=== PATIENT | male | born 1945 | race Caucasian/White ===

== ENCOUNTER 2020-04-10 09:20 | Outpatient (NON) | payer MEDICARE, SELFPAY ==
[2020-04-11 00:27] LABS: SARS-CoV-2 RNA PCR Positive
== END 2020-04-10 09:21 ==
PROVIDERS: PCP Family Medicine; Visit Provider Family Medicine
DX: U07.1 COVID-19 (principal)
CPT/HCPCS: 87635; C9803; U0003

== ENCOUNTER 2020-04-22 08:06 | Observation (INO) | payer MEDICARE, SELFPAY ==
[2020-04-22] VITALS (12 sets, daily range): BP systolic 113–134; BP diastolic 67–82; PULSE 60–79; RESP 13–27; TEMP 36.3–37; O2SAT 88–99; BMI 19.1
--- NOTE | ~2020-04-22 | XR_ITS ---
EXAMINATION: XR chest 1V portable DATE: 04/22/2020 09:49 INDICATION: Shortness of breath. COVID-19 positive. TECHNIQUE: A single frontal view of the chest was obtained on 2 radiographs. COMPARISON: Chest 2 views 01/19/2019, chest CT 08/19/2005 FINDINGS: The lungs are hyperexpanded with lucencies and chronic interstitial opacities, consistent w ith emphysema. A calcified right middle lobe nodule is consistent with old granulomatous disease. No pleural effusion or pneumothorax. The heart size is normal. Median sternotomy wires are noted. IMPRESSION: 1. Emphysema. Reviewed, dictated and finalized at location A. [facility] [employer] IMPRESSION: 1. Emphysema.
--- NOTE | 2020-04-22 08:20 | ECG_ITS ---
Measurements Intervals [place] Rate: 65 P: 55 WV: 151 QRS: 124 QRSD: 97 T: -66 QT: 410 QTc: 429 Interpretive Statements SINUS RHYTHM RIGHT AXIS DEVIATION DELAYED PRECORDIAL R/S TRANSITION ST-T WAVE ABNORMALITY IN ANT/INF LEADS- CONSIDER ISCHEMIA BASELINE ARTIFACT- I, III, AVR, AVL ABNORMAL ECG Electronically Signed On 04-22-2020 10:03:22 SURGICAL SERVICES TECH by Nils Valle D.O.
[2020-04-22 08:32] LABS: Basophils Percent Auto 0.5 % (0.2-1.2); Eosinophils Absolute Auto 0.1 K/mm3 (0-0.3); Eosinophils Percent Auto 1.3 % (0-4.4); Hematocrit 55.4 % (42.0-52.0); Hemoglobin 17.8 g/dL (14.0-18.0); Immature Granulocyte Absolute 0.02 K/mm3 (0.00-0.031); Immature Granulocyte Percent A 0.3 % (0-0.5); Lymphocytes Absolute Auto 1.55 K/mm3 (0.9-3.2); Lymphocytes Percent Auto 20.1 % (18.3-44.2); Mean Corpuscular HGB Conc 32.1 g/dl (32-36); Mean Corpuscular Hemoglobin 27.1 pg (26-34); Mean Corpuscular Volume 84.3 fl (80-100); Mean Platelet Volume 10.1 fl (7.4-10.4); Monocytes Absolute Auto 0.7 K/mm3 (0.1-0.6); Monocytes Percent Auto 8.8 % (2.6-8.5); Neutrophils Absolute Auto 5.3 K/mm3 (1.3-6.7); Platelet Count Result 293 k/mm3 (150-375); Red Blood Count 6.57 M/mm3 (4.6-6.20); Red Cell Distribution Width 14.3 % (11.5-14.5); White Blood Count 7.7 K/mm3 (4.5-10.0)
[2020-04-22 08:43] LABS: Anion Gap 6 mmol/L (8-16); Blood Urea Nitrogen 18 mg/dL (9-20); Calcium 9.1 mg/dL (8.4-10.2); Carbon Dioxide 31 mmol/L (22-30); Chloride 100 mmol/L (98-107); Estimated CRCL calculation 49 ml/min; Estimated Glomerular Filt Rate > 60; Glucose 110 mg/dL (75-110); Potassium 3.4 mmol/L (3.4-5.0); Sodium 137 mmol/L (137-145)
[2020-04-22] MEDS: SODIUM CHLORIDE 0.9% IV 1,000 ML 999 ML IV CONT (08:56)
--- NOTE | 2020-04-22 08:59 | ED.SOB ---
HPI - SOB/Dyspnea General Chief Complaint: Shortness of Breath/Dyspnea Stated Complaint: Covid +04/10 Low O2 sats Time Seen by Provider: 04/22/20 08:15 History of Present Illness HPI Narrative: Patient is a 74-year-old male who presents to the ER with reports of low oxygen saturation at home. Patient reports he began feeling symptomatic with Covid on 04/05/2020. He tested positive on 04/10/2020. He has been isolating at home. Reports he has been feeling very fatigued and weak. He gets short of breath with walking. Food does not taste correct and so he has not been eating much. Today he had put a pulse oximeter on his finger and reported that his oxygen level was 89% and his doctor told him to come to the hospital if that occurred. Is having no chest pain or chest pressure. No sinus congestion or sore throat or productive cough. Related Data Home Medications Medication Instructions Recorded Confirmed aspirin [Adult Aspirin] 81 mg PO DAILY 04/22/20 04/22/20 atorvastatin 80 mg DAILY 04/22/20 04/22/20 citalopram 20 mg DAILY 04/22/20 04/22/20 levothyroxine 50 mcg DAILY 04/22/20 04/22/20 lisinopril 20 mg DAILY 04/22/20 04/22/20 Allergies Allergy/AdvReac Type Severity Reaction Status Date / Time CRAB MEAT Allergy Severe Hives Uncoded 04/22/20 12:11 Review of Systems Review of Systems: All systems reviewed & are unremarkable except as noted in HPI and below Constitutional: Constitutional: Denies chills, Reports fatigue, Reports fever(s) and Reports weakness ENT: Denies nasal congestion and Denies sore throat Cardiovascular: Cardiovascular: Denies chest pain and Denies radiating jaw, neck or arm pain Respiratory: Respiratory: Denies cough, Reports dyspnea and Denies wheezing Gastrointestinal: Gastrointestinal: Denies abdominal pain, Denies nausea and Denies vomiting [facility] Past Medical History Medical History (Updated 04/22/20 @ 18:36 by Angelito Martin MD) Coronary artery disease Depression Emphysema lung Hyperlipidemia Hypertension Hypothyroidism Surgical History Surgical History (Updated 04/22/20 @ 16:31 by Maryann Vazquez NP) History of coronary artery bypass graft 3 vessel Family History Family History (Updated 04/22/20 @ 16:32 by Maryann Vazquez NP) Father Hypertension Alcoholism Social History Social History (Updated 04/22/20 @ 09:00 by Angelito Martin MD) Social History: Non-smoker Smoking packs per day: 2 Smoking cigarettes per day: 40.0 Years smoked: 35 Smoking pack-years: 70.00 Smoking status: Current every day smoker Tobacco type: cigarettes Alcohol intake: current Drinks per week: 1 Substance use: never Gender identity (if verbalized by the patient): Male Spiritual care concerns: No Exam Narrative: Exam Narrative: GENERAL: Well-appearing, well-nourished, and in no acute distress. HEAD: Normocephalic, atraumatic. CHEST: Clear to auscultation. No respiratory distress. HEART: Regular rate and rhythm. Normal peripheral pulses. ABDOMEN: Soft, nontender, nondistended. EXTREMITIES: Normal range of motion. No edema. SKIN: Warm, dry, no rash. NEURO: Alert and oriented x3. PSYCH: Normal mood and affect. Course Course Emergency Course: Patient became hypoxic after receiving albuterol. Admit for observation and Decadron given Covid positive with no oxygen requirement. Vital Signs Vital signs: Vital Signs Temperature 97.4 F L 04/22/20 08:12 Pulse Rate 79 04/22/20 08:12 Respiratory Rate 15 04/22/20 08:12 Blood Pressure 134/82 04/22/20 08:12 Pulse Oximetry 99 04/22/20 08:12 Temperature 97.7 F 04/22/20 16:00 Pulse Rate 74 04/22/20 16:00 Respiratory Rate 16 04/22/20 16:00 Blood Pressure 116/77 04/22/20 16:00 Pulse Oximetry 94 04/22/20 16:00 MDM - SOB/Dyspnea Lab Data Result diagrams: 04/22/20 08:22 04/22/20 08:22 Labs: Lab Results 04/22/20 04/22/20 04/22/20 Range/U
--- NOTE | 2020-04-22 09:05 | PC.NURSE ---
Pt O2 sat 93% on room air at time of ambulation assessment. Pt walked in ER and O2 sat 89%. Pt denies dizziness. Pt reports weakness.
[2020-04-22] MEDS: ALBUTEROL SULFATE (*SP) AEROSOL 1 PUFF 4 PUFF INHALATION (09:27)
[2020-04-22 09:35] LABS: Alanine Aminotransferase 41 U/L (4-50); Albumin Level 3.8 g/dL (3.5-5.1); Alkaline Phosphatase 115 U/L (38-126); Aspartate Amino Transferase 49 U/L (17-59); Bilirubin,Total 1.4 mg/dL (0.2-1.3); CRP < 0.5 mg/dL (<1.0)
--- NOTE | 2020-04-22 09:59 | PC.NURSE ---
Pt 88% on room air following breathing tx, per EDP Dr Mario PORTER put pt on 1-2 L NC O2. Pt placed on 1 L and O2 sat 96%.
[2020-04-22] MEDS: DEXAMETHASONE SOD PHOS INJ 4 MG/ML VIAL 6 MG IV PUSH (10:29)
--- NOTE | 2020-04-22 12:09 | ADMGEN ---
This patient, Constantine Ko Sr., was admitted to 3 Med Surg Room 327-01. Report received from DIANNA Carrion. Patient/family oriented to hospital policies and general routines including ID bracelet, bed and alarms, visiting hours, pain management, procedures, bathroom and other care routines, personal items, smoking policy, room service/diet, and visiting hours. Information on how to activate the Rapid Response Team has been discussed. Patient/Family are encouraged to report perceived risks to care and to ask questions if they do not understand what they are told or what they should do.
[2020-04-22] MEDS: ALBUTEROL SULFATE (*SP) AEROSOL 1 PUFF 2 PUFF INHALATION ×2 (14:21→21:06)
--- NOTE | 2020-04-22 16:20 | PM.IMHP ---
H&P: HPI History of Present Illness Date/Time: 04/22/20 16:20 Chief Complaint: Shortness of breath Narrative: Constantine Ko Sr. is a 74 year old male who tested positive for covid 19 on 02/11/2020. But he was symptomatic since 04/05/2020. His also tested positive. The patient has been monitoring his oxygen level with a pulse oximeter. The patient stated that his pulse ox has been low. He is been feeling very weak and has loss of appetite. He does not no chest pain no fever no chills. No nausea no vomiting no diarrhea. Patient stated his oxygen level had been 89 did 90% at home on his pulse oximeter. Patient looks like he was 93% on room air and came up to 99% with the oxygen at 2 L per nasal cannula. His chest x-ray was read as emphysema. The patient does have a history of emphysema but does not have any inhalers. In the emergency room as well as albuterol inhaler and dexamethasone. Patient is being admitted into observation status on the date of service 04/22/2020. Review of Systems Review of Systems: All systems reviewed & are unremarkable except as noted in HPI and below Constitutional: Constitutional: Reports as per HPI and Reports no additional constitutional complaints Eyes: Eyes: Reports as per HPI and Reports no additional eye complaints ENT: Reports system reviewed and no additional complaints, except as documented and Reports Normal hearing present Cardiovascular: Cardiovascular: Reports no additional cardiovascular complaints Respiratory: Respiratory: Reports no additional respiratory complaints and Reports no additional respiratory complaints Gastrointestinal: Gastrointestinal: Reports as per HPI and Reports no additional gastrointestinal complaints Musculoskeletal: Musculoskeletal: Reports no additional musculoskeletal complaints Integumentary/Breasts: Skin/Breast: Reports system reviewed and no additional complaints, except as docu and Reports as per HPI Neurologic: Reports system reviewed and no additional complaints, except as documented, Reports as per HPI and Reports Normal hearing present Psychiatric: Psychiatric: Reports no additional psychiatric complaints and Reports as per HPI Endocrine: Endocrine: Reports no additional endocrine complaints Hematologic/Lymphatic: Hematologic/Lymphatic: Reports no additional hematologic/lymphatic complaints Allergic/Immunologic: Allergic/Immunologic: Reports no additional allergic/immunologic complaints [facility] Past Medical History Medical History (Updated 04/22/20 @ 16:43 by Maryann Vazquez NP) Coronary artery disease Depression Emphysema lung Hyperlipidemia Hypertension Hypothyroidism Surgical History Surgical History (Updated 04/22/20 @ 16:31 by Maryann Vazquez NP) History of coronary artery bypass graft 3 vessel Family History Family History (Updated 04/22/20 @ 16:32 by Maryann Vazquez NP) Father Hypertension Alcoholism Social History Social History (Updated 04/22/20 @ 09:00 by Angelito Martin MD) Social History: Non-smoker Smoking packs per day: 2 Smoking cigarettes per day: 40.0 Years smoked: 35 Smoking pack-years: 70.00 Smoking status: Current every day smoker Tobacco type: cigarettes Alcohol intake: current Drinks per week: 1 Substance use: never Gender identity (if verbalized by the patient): Male Spiritual care concerns: No Meds Home Medications and Allergies Home Medications Medication Instructions Recorded Confirmed Type aspirin [Adult Aspirin] 81 mg PO DAILY 04/22/20 04/22/20 History atorvastatin 80 mg DAILY 04/22/20 04/22/20 History citalopram 20 mg DAILY 04/22/20 04/22/20 History levothyroxine 50 mcg DAILY 04/22/20 04/22/20 History lisinopril 20 mg DAILY 04/22/20 04/22/20 History Allergies Allergy/AdvReac Type Severity Reaction Status Date / Time CRAB MEAT Allergy Severe Hives Uncoded 04/22/20 12:11 Vital Signs Vital Signs - 24 hr 04/22/20 08:12 04/02
[2020-04-23] VITALS: BP 117/70; PULSE 58; RESP 20; TEMP 36.7; O2SAT 93
[2020-04-23] MEDS: ALBUTEROL SULFATE (*SP) AEROSOL 1 PUFF 2 PUFF INHALATION ×3 (02:24→13:56)
[2020-04-23 04:00] VITALS: BP 110/60; PULSE 56; RESP 20; TEMP 36.7; O2SAT 94
[2020-04-23] MEDS: LEVOTHYROXINE SODIUM 50 MCG TABLET BY MOUTH (06:08)
[2020-04-23 06:40] LABS: Basophils Percent Auto 0.2 % (0.2-1.2); Hematocrit 47.3 % (42.0-52.0); Hemoglobin 15.5 g/dL (14.0-18.0); Immature Granulocyte Absolute 0.02 K/mm3 (0.00-0.031); Immature Granulocyte Percent A 0.3 % (0-0.5); Lymphocytes Absolute Auto 0.96 K/mm3 (0.9-3.2); Lymphocytes Percent Auto 15.4 % (18.3-44.2); Mean Corpuscular HGB Conc 32.8 g/dl (32-36); Mean Corpuscular Hemoglobin 27.2 pg (26-34); Mean Corpuscular Volume 83.1 fl (80-100); Mean Platelet Volume 9.7 fl (7.4-10.4); Monocytes Absolute Auto 0.4 K/mm3 (0.1-0.6); Monocytes Percent Auto 6.8 % (2.6-8.5); Neutrophils Absolute Auto 4.8 K/mm3 (1.3-6.7); Neutrophils Percent Auto 77.3 % (45.5-73.1); Platelet Count Result 204 k/mm3 (150-375); Red Blood Count 5.69 M/mm3 (4.6-6.20); Red Cell Distribution Width 13.9 % (11.5-14.5); White Blood Count 6.2 K/mm3 (4.5-10.0)
[2020-04-23 07:00] LABS: D Dimer 0.82 ug/mL (<0.48); Lactic Acid Reflex 1.2 mmol/L (0.7-2.1)
[2020-04-23 07:02] LABS: Anion Gap 7 mmol/L (8-16); Blood Urea Nitrogen 14 mg/dL (9-20); Calcium 8.5 mg/dL (8.4-10.2); Carbon Dioxide 24 mmol/L (22-30); Chloride 105 mmol/L (98-107); Estimated CRCL calculation 66 ml/min; Estimated Glomerular Filt Rate > 60; Glucose 107 mg/dL (75-110); Magnesium 1.7 mg/dL (1.6-2.3); Potassium 3.5 mmol/L (3.4-5.0); Sodium 136 mmol/L (137-145)
[2020-04-23 08:00] VITALS: BP 132/73; PULSE 106; RESP 16; TEMP 36.3; O2SAT 100
[2020-04-23 08:45] VITALS: O2SAT 95
[2020-04-23] MEDS: ASPIRIN 81 MG CHEWABLE TABLET PO (08:50)
[2020-04-23] MEDS: CITALOPRAM HYDROBROMIDE 20 MG TABLET BY MOUTH (08:50)
[2020-04-23] MEDS: ATORVASTATIN 40 MG TABLET 80 MG BY MOUTH (08:50)
[2020-04-23] MEDS: ENOXAPARIN 40 MG/0.4 ML SYRINGE SUB-Q (08:51)
[2020-04-23] MEDS: DEXAMETHASONE SOD PHOS INJ 4 MG/ML VIAL 6 MG IV PUSH (08:51)
[2020-04-23] MEDS: lisinopriL 20 MG TABLET BY MOUTH (08:51)
[2020-04-23 12:00] VITALS: BP 107/64; PULSE 59; RESP 16; TEMP 36.7; O2SAT 94
--- NOTE | 2020-04-23 13:20 | PM.DS ---
DS: Admitting Diagnosis Admitting Diagnosis Admitting Diagnosis: Hypoxia DS: Discharge Diagnosis Discharge Diagnosis (1) Hypoxia: Code(s): R09.02 - Hypoxemia Status: Acute Assessment and Plan: Patient had been monitoring home pulse oxygenation levels at home given recent COVID positive test. He noted that he had been feeling more short of breath and checked his O2 sat and found to be low at 89%. He was again noted to be hypoxic in the ED after receiving albuterol and was placed on 1 L O2 per nasal cannula briefly and was promptly weaned back to room air.Upon my evaluation, he denied dyspnea or other respiratory symptoms. (2) COVID-19: Code(s): U07.1 - COVID-19 Status: Acute Assessment and Plan: Patient Had symptom onset 04/05/2020 and tested positive for COVID-19 on 04/10/2020. He had been at home on isolation monitoring his symptoms per recommendations of his PCP. He was started on IV dexamethasone given his brief O2 requirement. Remdesivir was not initiated due to lack of ongoing O2 requirements and overall clinical improvement. Inflammatory markers were monitored. he will continue p.o. dexamethasone as an outpatient to complete 10 days of therapy. We discussed CDC guidelines for self-isolation and other measures to help prevent the spread of COVID-19. Supportive care was provided. (3) Coronary artery disease: Code(s): I25.10 - Atherosclerotic heart disease of [place] coronary artery without angina pectoris Status: Chronic Assessment and Plan: History of 3 vessel CABG. Continue daily aspirin and atorvastatin. (4) Emphysema lung: Code(s): J43.9 - Emphysema, unspecified Status: Chronic Assessment and Plan: Evident on CXR. Not in acute exacerbation. O2 requirements for stable. He is a current smoker and smoking cessation education was provided. (5) Hyperlipidemia: Code(s): E78.5 - Hyperlipidemia, unspecified Status: Chronic Assessment and Plan: Continue with atorvastatin. LFTs appropriate. (6) Hypothyroidism: Code(s): E03.9 - Hypothyroidism, unspecified Status: Chronic Assessment and Plan: TSH was within normal limits. Continue levothyroxine at current dose. (7) Hypertension: Code(s): I10 - Essential (primary) hypertension Status: Chronic Assessment and Plan: Blood pressures monitored closely and remained very well controlled. Continue lisinopril. DS: Summary Hospital Course Reason for hospitalization: Hypoxia Hospital Course: date of admission: 04/22/2020 date of discharge: 04/23/2020 Constantine Ko is a 74-year-old male with a history of CAD, emphysema, HLD, HTN, and hypothyroidism, and recent COVID-19 infection on 04/10/2020 who presented to the emergency department on 04/22/2020 with complaints of hypoxia at home, as well as feeling fatigued and weak. Upon presentation to the emergency department, his vital signs were stable and he was afebrile, CBC and BMP were unremarkable, and chest x-ray showed chronic interstitial opacities consistent with emphysema. He was admitted to the hospitalist service for further evaluation and management. Please see above for further details. Patient was stable on room air. He will continue dexamethasone p.o. as an outpatient. The patient was feeling significantly improved and requested discharge home. Given his overall improvement stable oxygen saturations, he was determined to no longer require inpatient care and felt to be stable for discharge. We discussed worrisome signs and symptoms for which to return in he was educated on his medications. He will need to follow-up with his PCP as an outpatient. He was discharged in hemodynamically stable condition on 04/23/2020. Status at Discharge Functional status at discharge: independent ambulation Overall status at discharge: patient is back to baseline Abhi
== END 2020-04-23 14:00 | disposition home or self-care (01) ==
LOC: ANHED 08:20 → ANH3MEDSUR 11:08
PROVIDERS: Nurse Practitioner; Admitting Provider Internal Medicine; Emergency Provider Emergency Medicine; PCP Family Medicine; Visit Provider Family Medicine
DX: U07.1 COVID-19 (principal); R09.02 Hypoxemia; R53.1 Weakness; J43.9 Emphysema, unspecified; I25.10 Atherosclerotic heart disease of native coronary artery without angina pectoris; I10 Essential (primary) hypertension; E03.9 Hypothyroidism, unspecified; E78.5 Hyperlipidemia, unspecified; F17.210 Nicotine dependence, cigarettes, uncomplicated; F32.9 Major depressive disorder, single episode, unspecified; R94.31 Abnormal electrocardiogram [ECG] [EKG]; Z95.1 Presence of aortocoronary bypass graft
CPT/HCPCS: 36415; 71045; 80048; 80076; 82728; 83605; 83735; 84443; 85025; 85380; 86140; 93005; 94640; 96361; 96372; 96374; 96376; 99285; A9270; G0378; J1100; J1650; J7030

== ENCOUNTER 2020-11-04 12:24 | Outpatient (CLI) | payer MEDICARE, SELFPAY ==
--- NOTE | 2020-11-04 17:07 | WPDSIXMINUTE ---
Six Minute Walk Procedure Procedure Performed Pulmonary Stress Test (6 min walk) Six Minute Walk This is a 6 minutes walk test. The test was performed and interpreted in accordance with the 2014 ERS/ATS task force guidelines. Findings: The patient's resting room air oxygen saturation measured by pulse oximetry was 91% and her heart rate was 64 bpm. Patient ambulated for 335 meters and oxygen saturation remained 82 to 93%. Heart rate at the end of the study was 75 bpm. The patient did not qualify for supplemental oxygen with ambulation and should be referred for formal home O2 assessment. There are no prior studies for comparison.
--- NOTE | 2020-11-04 17:09 | WPDPFTINT ---
PFT Procedure Performed PFT Procedure Performed Spirometry with Pre/Post Bronchodilator Plethysmography (Lung Vol) Diffusing Cap (DLCO) Flow Vol Loop PFT Interpretation This is a pulmonary function test with pre and post-bronchodilator spirometry, plethysmography and diffusing capacity. The test was performed and results interpreted in accordance with the 2019 and 2005 ATS/ERS Task Force guidelines respectively using the Global Lung Function Initiative-2012 reference equations. Patient demonstrated good effort and cooperation. Reproducibility criteria were met. The quality of the pre bronchodilator spirometry maneuver was Grade A and post bronchodilator spirometry maneuver was Grade A. Findings: Spirometry: there is decreased maximal expiratory airflow at all lung volumes with concave expiratory flow tracing. The pre bronchodilator FVC is 3.85 L, 87% predicted. The pre bronchodilator FEV1 is 1.81 L, 55% predicted. The FEV1: FVC ratio is 47%. The post bronchodilator FVC is 4.27 L, representing an 11% increase. The post bronchodilator FEV1 is 2.11 L, representing a 16% increase. Plethysmography: The total lung capacity is 6.93 L, 93% predicted. The functional residual capacity is 4.72 L, 118% predicted. The residual volume is 3.08 L, 117% predicted. Diffusing capacity: The absolute diffusion capacity is 8.7, 33% predicted. The diffusing capacity corrected for alveolar volume is 1.60, 43% predicted. Impression: There is a moderately severe obstructive abnormality with significant improvement after inhaling a single dose of albuterol. The lung volumes are normal. The absolute diffusion capacity is severely decreased and remains moderately decreased when corrected for alveolar volume. There are no prior studies for comparison
== END 2020-11-04 12:25 | disposition home or self-care (01) ==
PROVIDERS: PCP Family Medicine; Visit Provider Internal Medicine Pulmonary Disease
DX: J40 Bronchitis, not specified as acute or chronic (principal); Z72.0 Tobacco use; R06.00 Dyspnea, unspecified; Z12.2 Encounter for screening for malignant neoplasm of respiratory organs; Z87.891 Personal history of nicotine dependence; R94.2 Abnormal results of pulmonary function studies
CPT/HCPCS: 94060; 94618; 94726; 94729

== ENCOUNTER 2020-11-06 10:56 | Outpatient (CLI) | payer MEDICARE, SELFPAY ==
--- NOTE | ~2020-11-06 | CT_ITS ---
EXAMINATION:CT lung screening DATE: 11/06/2020 12:19 INDICATION: Personal history of tobacco dependence. Smoker who quit 14 years ago with 70 pack year hi story. TECHNIQUE: Computed tomography (CT) of the chest was performed without intravenous contrast. Automate d exposure control and iterative reconstruction technique were employed. The dose-length product (DLP ) was 86.42 mGy-cm. COMPARISON: Chest CT 08/19/2005 FINDINGS: There is severe emphysema. There is mild atelectasis bilaterally. A calcified right middle lobe nodule is consistent with old granulomatous disease. There is a stable 6 mm nodule in right lowe r lobe. No pleural effusion. The heart size is normal. There are coronary artery calcifications. Ther e are changes of coronary artery bypass grafting. There is bilateral gynecomastia. The central pulmon alessandro arteries are enlarged, consistent with pulmonary arterial hypertension. There is mild thoracic sp ondylosis and severe lumbar spondylosis. IMPRESSION: 1. Lung-RADS category 2: Benign appearance or behavior. Continue annual screening with noncontrast lo w-dose chest CT in 12 months. Reviewed, dictated and finalized at location A. IMPRESSION: 1. Lung-RADS category 2: Benign appearance or behavior. Continue annual screeni ng with noncontrast low-dose chest CT in 12 months.
== END 2020-11-06 10:57 | disposition home or self-care (01) ==
LOC: ANHIMG 10:57
PROVIDERS: PCP Family Medicine; Visit Provider Internal Medicine Pulmonary Disease
DX: Z87.891 Personal history of nicotine dependence (principal)
CPT/HCPCS: 71271

== ENCOUNTER 2020-11-27 08:19 | Outpatient (CLI) | payer MEDICARE, SELFPAY ==
[2020-11-27 08:30] VITALS: PULSE 63; O2SAT 96
[2020-11-27 08:35] VITALS: PULSE 83; O2SAT 89
[2020-11-27 08:45] VITALS: PULSE 69; O2SAT 93
== END 2020-11-27 08:20 | disposition home or self-care (01) ==
LOC: ANHPFT 08:22
PROVIDERS: PCP Family Medicine; Visit Provider Internal Medicine Pulmonary Disease
DX: R06.09 Other forms of dyspnea (principal)
CPT/HCPCS: 94618

== ENCOUNTER 2021-02-11 12:42 | Outpatient (CLI) | payer MEDICARE, SELFPAY ==
[2021-02-10 12:50] VITALS: PULSE 76; O2SAT 96
[2021-02-11 13:00] VITALS: PULSE 84; O2SAT 93
--- NOTE | 2021-02-11 13:07 | HOMEO2EVAL ---
Evaluation was performed at [facility]
--- NOTE | 2021-02-11 13:08 | HOMEO2EVAL ---
Evaluation was performed at [facility]
--- NOTE | 2021-02-11 13:08 | HOMEO2EVAL ---
Evaluation was performed at [facility]
--- NOTE | 2021-02-11 13:09 | HOMEO2EVAL ---
Evaluation was performed at [facility]
[2021-02-11 13:10] VITALS: PULSE 68; O2SAT 96
--- NOTE | 2021-02-11 13:10 | HOMEO2EVAL ---
Evaluation was performed at [facility]
--- NOTE | 2021-02-11 13:10 | HOMEO2EVAL ---
Evaluation was performed at [facility]
--- NOTE | 2021-02-11 13:18 | HOMEO2EVAL ---
Evaluation was performed at [facility] Home Oxygen Evaluation RC: Home Oxygen (O2) Evaluation Start: 02/11/21 13:09 Freq: ONCE Status: Active Protocol: RPE Activity Type Activity Date Activity User E-Sign Co-Sign Detail Recorded Client Recorded Date Recorded By Document 02/11/21 13:00 [email or web address] [email or web address] 02/11/21 13:16 KRM Document 02/11/21 13:10 [email or web address] [email or web address] 02/11/21 13:16 KRM 02/11/21 02/11/21 13:00 13:10 Home O2 Evaluation Test Phase Exercise Resting Oxygen Delivery Room Air Room Air Pulse Oximetry (90-100 %) 93 96 Pulse Rate (60-100 beats/min) 84 68 Activity Tolerance Excellent Excellent Rating of Perceived Dyspnea (PD) +1 Mild, Noticeable to the Participant but Not to an Observer Rate of Perceived Exertion (PE) 6 Very, very light Ambulation Distance (feet) 400
--- NOTE | 2021-02-11 13:32 | HOMEO2EVAL ---
Evaluation was performed at [facility] Home Oxygen Evaluation RC: Home Oxygen (O2) Evaluation Start: 02/11/21 13:09 Freq: ONCE Status: Active Protocol: RPE Activity Type Activity Date Activity User E-Sign Co-Sign Detail Recorded Client Recorded Date Recorded By Document 02/11/21 13:00 [email or web address] [email or web address] 02/11/21 13:16 KRM Document 02/11/21 13:10 [email or web address] [email or web address] 02/11/21 13:16 KRM 02/11/21 02/11/21 13:00 13:10 Home O2 Evaluation Test Phase Exercise Resting Oxygen Delivery Room Air Room Air Pulse Oximetry (90-100 %) 93 96 Pulse Rate (60-100 beats/min) 84 68 Activity Tolerance Excellent Excellent Rating of Perceived Dyspnea (PD) +1 Mild, Noticeable to the Participant but Not to an Observer Rate of Perceived Exertion (PE) 6 Very, very light Ambulation Distance (feet) 400
--- NOTE | 2021-02-11 13:32 | HOMEO2EVAL ---
Evaluation was performed at [facility] Home Oxygen Evaluation RC: Home Oxygen (O2) Evaluation Start: 02/11/21 13:09 Freq: ONCE Status: Active Protocol: RPE Activity Type Activity Date Activity User E-Sign Co-Sign Detail Recorded Client Recorded Date Recorded By Document 02/11/21 13:00 [email or web address] [email or web address] 02/11/21 13:16 KRM Document 02/11/21 13:10 [email or web address] [email or web address] 02/11/21 13:16 KRM 02/11/21 02/11/21 13:00 13:10 Home O2 Evaluation Test Phase Exercise Resting Oxygen Delivery Room Air Room Air Pulse Oximetry (90-100 %) 93 96 Pulse Rate (60-100 beats/min) 84 68 Activity Tolerance Excellent Excellent Rating of Perceived Dyspnea (PD) +1 Mild, Noticeable to the Participant but Not to an Observer Rate of Perceived Exertion (PE) 6 Very, very light Ambulation Distance (feet) 400
== END 2021-02-11 12:43 | disposition home or self-care (01) ==
LOC: ANHPFT 12:43
PROVIDERS: PCP Family Medicine; Visit Provider Internal Medicine Pulmonary Disease
DX: R06.02 Shortness of breath (principal)
CPT/HCPCS: 94618

== ENCOUNTER 2021-02-27 01:50 | Day surgery (SDC) | payer MEDICARE, SELFPAY ==
[2021-02-11 13:03] VITALS: BMI 22.7
[2021-02-27 08:42] VITALS: BP 144/81; PULSE 67; RESP 20; TEMP 36.7; O2SAT 94; BMI 22.5
--- NOTE | 2021-02-27 08:45 | WPDANESEPPF ---
Anes - Initial Pre Proc Eval Procedure: Operation Date: 02/27/21 09:30 Proposed Procedures p Colonoscopy - Jayson Hilario MD Date/Time: 02/27/21 08:45 Surgeon: Jayson Hilario MD Pre Op Diagnosis: occult GI bleed, positive fit test Patient Data Age: 75 Gender: M Height: 1.8 m Weight: 73.2 kg Last Vital Signs Temp 36.7 C 02/27/21 08:42 Pulse 67 02/27/21 08:42 Resp 20 02/27/21 08:42 BP 144/81 H 02/27/21 08:42 Pulse Ox 94 02/27/21 08:42 Allergies Allergy/AdvReac Type Severity Reaction Status Date / Time CRAB MEAT Allergy Severe Hives Uncoded 02/27/21 08:40 Home Medications Medication Instructions Recorded Confirmed Type aspirin 81 mg PO DAILY 04/22/20 02/27/21 History atorvastatin 80 mg DAILY 04/22/20 02/27/21 History citalopram 20 mg DAILY 04/22/20 02/27/21 History levothyroxine 50 mcg DAILY 04/22/20 02/27/21 History lisinopril 20 mg DAILY 04/22/20 02/27/21 History dexamethasone 6 mg PO DAILY #9 tablet 04/23/20 02/27/21 Rx guaifenesin 600 mg PO BID #30 tablet 04/23/20 02/27/21 Rx albuterol sulfate 90 mcg/actuation 2 inh INHALATION Q4H PRN #8.5 g 10/27/20 02/27/21 Rx aerosol inhaler prednisone 10 mg tablet 10 mg PO DAILY 10/27/20 02/27/21 History umeclidinium 62.5 mcg/actuation 1 inh INHALATION DAILY #30 ea 11/05/20 02/27/21 Rx blister powder for inhalation umeclidinium 62.5 mcg-vilanterol 1 inh INHALATION DAILY #60 ea 12/17/20 02/27/21 Rx 25 mcg/actuation powdr for inhalation Patient hx anesthesia problems: none Family hx anesthesia problems: none Results Review: All pre-operative results and documents have been reviewed as part of the pre-operative evaluation. [facility] Past Medical History Medical History Coronary artery disease Depression Emphysema lung Hyperlipidemia Hypertension Hypothyroidism Surgical History Surgical History History of coronary artery bypass graft 3 vessel Family History Family History Father Hypertension Alcoholism Social History Social History Social History: Non-smoker Smoking packs per day: 2 Smoking cigarettes per day: 40.0 Years smoked: 35 Smoking pack-years: 70.00 Smoking status: Former smoker Tobacco type: cigarettes Alcohol intake: current Drinks per week: 1 Substance use: never Substance use type: does not use Living arrangements: with family Additional living arrangements comments: lives with spouse Gender identity (if verbalized by the patient): Male Spiritual care concerns: No Anes - Eval Final PreProcedure Day of Procedure 02/27/21 08:45 Patient weight: normal Heart: regular rate and rhythm Lungs: clear to auscultation Airway: Mallampati scale class 1 Neurological: alert and oriented Last oral intake: >/= 8 hours ASA classification: IV Emergent: no Anesthetic plan: proceed Anesthesia type and monitoring: general GIVS and standard monitoring Results Review: All pre-operative results and documents have been reviewed as part of the pre-operative evaluation. Informed Consent: The patient's anesthetic plan and its attendant risks and benefits were discussed with the patient/family/POA. Questions were solicited and answers provided to the satisfaction of the patient/family/POA.
[2021-02-27] MEDS: LACTATED RINGERS 1,000 ML 150 ML IV CONT (08:46)
--- NOTE | 2021-02-27 09:26 | WPDGICN ---
Assessment and Plan Assessment and plan (1) Occult blood in stools: Code(s): R19.5 - Other fecal abnormalities Status: Acute Assessment and Plan: Patient presents for screening colonoscopy because of occult blood in stool. Further recommendations will be given after endoscopy. GI Consult Note Consult date/time: 02/27/21 09:26 HPI: Constantine Ko Sr. is a 75 year old male Presents for screening colonoscopy. Patient recently found to have positive Hemoccult positive stools. He denies any obvious blood in his stools. He denies abdominal pain. He has had no obvious bleeding. Does report prior colonoscopy 7 or 8 years prior to this that was essentially unremarkable. He states his family history is noncontributory. Review of Systems Review of Systems: All systems reviewed & are unremarkable except as noted in HPI and below PMFSH Past Medical History Medical History Coronary artery disease Depression Emphysema lung Hyperlipidemia Hypertension Hypothyroidism Surgical History Surgical History History of coronary artery bypass graft 3 vessel Family History Family History Father Hypertension Alcoholism Social History Social History Social History: Non-smoker Smoking packs per day: 2 Smoking cigarettes per day: 40.0 Years smoked: 35 Smoking pack-years: 70.00 Smoking status: Former smoker Tobacco type: cigarettes Alcohol intake: current Drinks per week: 1 Substance use: never Substance use type: does not use Living arrangements: with family Additional living arrangements comments: lives with spouse Gender identity (if verbalized by the patient): Male Spiritual care concerns: No Meds Home Medications and Allergies Home Medications Medication Instructions Recorded Confirmed Type aspirin 81 mg PO DAILY 04/22/20 02/27/21 History atorvastatin 80 mg DAILY 04/22/20 02/27/21 History citalopram 20 mg DAILY 04/22/20 02/27/21 History levothyroxine 50 mcg DAILY 04/22/20 02/27/21 History lisinopril 20 mg DAILY 04/22/20 02/27/21 History dexamethasone 6 mg PO DAILY #9 tablet 04/23/20 02/27/21 Rx guaifenesin 600 mg PO BID #30 tablet 04/23/20 02/27/21 Rx albuterol sulfate 90 mcg/actuation 2 inh INHALATION Q4H PRN #8.5 g 10/27/20 02/27/21 Rx aerosol inhaler prednisone 10 mg tablet 10 mg PO DAILY 10/27/20 02/27/21 History umeclidinium 62.5 mcg/actuation 1 inh INHALATION DAILY #30 ea 11/05/20 02/27/21 Rx blister powder for inhalation umeclidinium 62.5 mcg-vilanterol 1 inh INHALATION DAILY #60 ea 12/17/20 02/27/21 Rx 25 mcg/actuation powdr for inhalation Allergies Allergy/AdvReac Type Severity Reaction Status Date / Time CRAB MEAT Allergy Severe Hives Uncoded 02/27/21 08:40 Vital Signs Vital Signs - 24 hr 02/27/21 08:42 Temperature 98.1 F Pulse Rate 67 Respiratory Rate 20 Blood Pressure 144/81 H Pulse Oximetry 94 Exam Narrative: Physical exam reveals patient be alert. Vital signs stable. HEENT exam is unremarkable. Patient is anicteric. Lungs are clear to auscultation and percussion. Heart is without murmur or extra sounds. Abdominal exam bowel sounds are present soft nontender with no organomegaly. Digital external rectal exam is normal.
[2021-02-27 09:54] VITALS: BP 88/56; PULSE 62; RESP 24; O2SAT 95
[2021-02-27 10:04] VITALS: BP 111/76; PULSE 60; RESP 22; O2SAT 95
[2021-02-27 10:14] VITALS: BP 100/71; PULSE 61; RESP 22; O2SAT 98
== END 2021-02-27 10:28 | disposition home or self-care (01) ==
PROVIDERS: PCP Family Medicine; Visit Provider Internal Medicine Gastroenterology
PROC: 0DJD8ZZ Inspection of Lower Intestinal Tract, Via Natural or Artificial Opening Endoscopic (ICD-10-PCS; CPT 45378; principal; 2021-02-27 09:30)
DX: R19.5 Other fecal abnormalities (principal); K64.8 Other hemorrhoids; I25.10 Atherosclerotic heart disease of native coronary artery without angina pectoris; I10 Essential (primary) hypertension; J43.9 Emphysema, unspecified; E78.5 Hyperlipidemia, unspecified; E03.9 Hypothyroidism, unspecified; F32.A Depression, unspecified; Z95.5 Presence of coronary angioplasty implant and graft; Z87.891 Personal history of nicotine dependence
CPT/HCPCS: 45378; J2704; J7120

== ENCOUNTER → 2021-05-26 11:42 | Outpatient (CLI) | payer MEDICARE, SELFPAY ==
--- NOTE | ~2021-05-26 | XR_ITS ---
XR lumbar spine 2-3V DATE: 05/26/2021 12:18 INDICATION: Left sciatica TECHNIQUE: AP, lateral, coned lateral lumbosacral views COMPARISON: None FINDINGS: There is diffuse osteopenia. There is multilevel degenerative disc disease, severe at L1-2, moderately severe at L2-3, moderate at L3-4, L4-5 and L5-S1. No fracture or bone destruction is evident. The included lower thoracic and lumbar pedicles are intac t. The sacroiliac joints are intact. There is extensive abdominal aortic and iliac arterial calcification. No apparent abdominal aortic an eurysm. IMPRESSION: Osteopenia Multilevel degenerative disc disease, most pronounced at L1-2 Reviewed, dictated and finalized at location A. 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
== END ==
PROVIDERS: Visit Provider Family Medicine
DX: M54.32 Sciatica, left side (principal); M85.88 Other specified disorders of bone density and structure, other site; M51.36 Other intervertebral disc degeneration, lumbar region
CPT/HCPCS: 72100

== ENCOUNTER 2021-07-06 08:59 | Outpatient (CLI) | payer MEDICARE, SELFPAY ==
--- NOTE | ~2021-07-06 | US_ITS ---
EXAMINATION: US aorta [facility] DATE: 07/06/2021 09:31 INDICATION: Abdominal aortic aneurysm screening. TECHNIQUE: Grayscale, color Doppler, and pulsed Doppler images of the aorta and common iliac arteries were obtained. COMPARISON: CT abdomen 08/19/2005 FINDINGS: The aorta is normal in caliber and demonstrates atherosclerosis. The right common iliac artery is nor mal in caliber. The left common iliac artery is normal in caliber. IMPRESSION: 1. No abdominal aortic aneurysm. Reviewed, dictated and finalized at location A. GER [employer]
== END 2021-07-06 09:00 | disposition home or self-care (01) ==
LOC: ANHIMG 09:03
PROVIDERS: PCP Family Medicine; Visit Provider Family Medicine
DX: Z13.6 Encounter for screening for cardiovascular disorders (principal)
CPT/HCPCS: 76706

== ENCOUNTER 2021-09-03 07:57 | Outpatient (CLI) | payer MEDICARE, SELFPAY ==
[2021-09-03 08:27] VITALS: PULSE 65; O2SAT 95
[2021-09-03 08:29] VITALS: PULSE 86; O2SAT 87
[2021-09-03 08:30] VITALS: PULSE 85; O2SAT 87
[2021-09-03 08:31] VITALS: PULSE 85; O2SAT 88
[2021-09-03 08:32] VITALS: PULSE 86; O2SAT 88
[2021-09-03 08:35] VITALS: PULSE 85; O2SAT 90
--- NOTE | 2021-09-03 09:39 | HOMEO2EVAL ---
Evaluation was performed at [facility] Home Oxygen Evaluation RC: Home Oxygen (O2) Evaluation Start: 09/03/21 09:32 Freq: Status: Active Protocol: RPE Activity Type Activity Date Activity User E-Sign Co-Sign Detail Recorded Client Recorded Date Recorded By Document 09/03/21 08:27 [email or web address] 09/03/21 09:35 KLA Document 09/03/21 08:29 [email or web address] 09/03/21 09:35 KLA Document 09/03/21 08:30 [email or web address] 09/03/21 09:39 KLA Document 09/03/21 08:31 [email or web address] 09/03/21 09:39 KLA Document 09/03/21 08:32 [email or web address] 09/03/21 09:39 KLA Document 09/03/21 08:35 [email or web address] [email or web address] 09/03/21 09:39 KLA 09/03/21 09/03/21 09/03/21 08:27 08:29 08:30 Home O2 Evaluation Test Phase Resting Exercise Exercise Oxygen Delivery Room Air Room Air Nasal Cannula Oxygen Flow Rate (L/min) 1 Pulse Oximetry (90-100 %) 95 87 L 87 L Pulse Rate (60-100 beats/min) 65 86 85 Activity Tolerance Rating of Perceived Dyspnea (PD) Ambulation Distance (feet) Ambulation Distance (meters) Treatment Charges O2 Evaluation - Outpatient 09/03/21 09/03/21 09/03/21 08:31 08:32 08:35 Home O2 Evaluation Test Phase Exercise Exercise Exercise Oxygen Delivery Nasal Cannula Nasal Cannula Nasal Cannula Oxygen Flow Rate (L/min) 2 3 4 Pulse Oximetry (90-100 %) 88 L 88 L 90 Pulse Rate (60-100 beats/min) 85 86 85 Activity Tolerance Excellent Rating of Perceived Dyspnea (PD) +2 Mild, Some Difficulty, Noticeable to the Observer Ambulation Distance (feet) 600 Ambulation Distance (meters) 182.87 Treatment Charges
== END 2021-09-03 07:58 | disposition home or self-care (01) ==
PROVIDERS: PCP Family Medicine; Visit Provider Nurse Practitioner Family
DX: R06.00 Dyspnea, unspecified (principal)
CPT/HCPCS: 94618

== ENCOUNTER 2021-10-21 07:25 | Outpatient (CLI) | payer MEDICARE, SELFPAY ==
--- NOTE | 2021-11-17 21:36 | WPDSLEEPSTUD ---
Sleep Study Date of Study: 10/21/21 Ordering Provider: Behzad Zavala MD Interpreting Physician: Araceli Shell DO Sleep Study Type: Split Polysomnogram Height: 1.83 m Weight: 76.204 kg Body Mass Index: 22.8 Neck Circumference (inches): 17 [place]: 9 Reason for Sleep Study Hypersomnia Sleep History The patient is a 76-year-old male with COPD, oxygen dependence, coronary artery disease, depression, hyperlipidemia, hypertension, hypothyroidism and history of tobacco use disorder that had a sleep study ordered by his banker mason for evaluation of sleep apnea. The patient denies awakening from sleep short of breath. He denies awakening at night with heartburn, belching or cough. He denies snoring loud enough that others complain. He occasionally has trouble sleeping when he has a cold. He denies waking up gasping for air throughout the night. He rarely has breathing problems at night observed by himself or others. He denies sweating excessively at night. He rarely has heart palpitations or irregular heartbeats during the night. He occasionally falls asleep during the day but never while driving. He denies having trouble at school or work due to sleepiness. He rarely experiences loss of muscle tone when extremely emotional. He denies having sleep paralysis. He rarely experiences vivid dreamlike scenes upon awakening or falling asleep. He denies feeling afraid of going to sleep. He rarely has nightmares. He rarely remembers his dreams. He occasionally has thoughts racing through his mind. He occasionally feels sad, depressed and anxious. He rarely has muscular tension. He rarely notices parts of his body jerk. He rarely kicks during the night. He rarely has crawling and aching feelings in his legs as well as leg pain during the night. He denies grinding his teeth during sleep. He rarely awakens with morning jaw pain. He is rarely bothered by pain during the day and rarely awakened by pain during the night. He rarely wakes up feeling stiff in the morning. He rarely wakes up with sore achy muscles. He rarely wakes up with pain in the neck, spine and other joints. He goes to bed between 9-10 p.m. on both weekdays and weekends. He is able to fall asleep relatively quickly. He wakes up 1-2 times throughout the night to urinate. He is able to fall back asleep within 15-20 minutes. He wakes up at 6:00 a.m. on weekdays and between 60 7:00 a.m. on the weekends. He typically gets 6-8 hours of sleep per night. He will stay in bed for 30-60 minutes after waking up in the morning to watch the news. He currently lives with his . He does not consume any caffeinated beverages within 2 hours of bedtime. He does not engage in physical exercise before bedtime. He will watch television before falling asleep. He will occasionally take naps in the afternoon or the evening and they are sometimes refreshing. The patient quit smoking cigarettes in 2006. He currently has 1 alcoholic beverage per week. He denies recreational drug use. [facility] Past Medical History Medical History Coronary artery disease Depression Emphysema lung Hyperlipidemia Hypertension Hypothyroidism Surgical History Surgical History History of coronary artery bypass graft 3 vessel Family History Family History Father Hypertension Alcoholism Social History Social History Smoking packs per day: 2 Smoking cigarettes per day: 40.0 Years smoked: 35 Smoking pack-years: 70.00 Smoking status: Former smoker Tobacco type: cigarettes Smoking end date: 05/02/06 Alcohol intake: current Drinks per week: 1 Substance use: never Substance use type: does not use Additional living arrangements comments: lives
[2021-11-18 00:01] VITALS: BMI 22.8
== END 2021-10-22 07:06 | disposition home or self-care (01) ==
LOC: ANHCSM 07:31
PROVIDERS: PCP Family Medicine; Visit Provider Internal Medicine Pulmonary Disease
DX: G47.33 Obstructive sleep apnea (adult) (pediatric) (principal); G47.31 Primary central sleep apnea; G47.10 Hypersomnia, unspecified
CPT/HCPCS: 95811

== ENCOUNTER 2021-11-09 08:25 | Outpatient (CLI) | payer MEDICARE, SELFPAY ==
--- NOTE | 2021-11-09 09:32 | ECHO_ITS ---
Patient Info Name: Constantine Ko Age: 76 years : 1945 Gender: Male Ht: 72 in Wt: 168 lbs BSA: 1.97 m2 HR: 59 bpm BP: 121 / 81 mmHg Heart Rhythm: Sinus Rhythm Technical Quality: Fair Exam Date: 11/09/2021 9:44 AM Exam Location: [facility] Pulmonary Patient Status: Outpatient Admit Date: 11/09/2021 Staff Ordering Physician: Behzad Zavala MD Centrifugal Wax Molder: Sandra Mills RDCS Attending Provider: Behzad Zavala MD Referring Physician: Sally PEREZ; Exam Type: CA echo doppler color flow Study Info Indications R06.00 - Dyspnea, unspecified Complete two-dimensional, color flow and Doppler transthoracic echocardiogram is performed. Summary 1. Complete two-dimensional, color flow and Doppler transthoracic echocardiogram is performed. 2. Technically difficult study with limited views. Regional wall motion assessment limited due to poor endomyocardial border definition. 3. Left ventricular chamber dimension is normal. 4. Left ventricular systolic function is mildly reduced, estimated at 45-50%. 5. The left ventricular diastolic function is grade I diastolic dysfunction. 6. Right ventricular chamber dimension is moderately enlarged. 7. Right ventricular systolic function is moderately reduced. 8. There is trace tricuspid valve regurgitation. 9. Severe pulmonary hypertension, estimated pulmonary arterial systolic pressure is 69 mmHg. Left Ventricle Left ventricular chamber dimension is normal. Left ventricular systolic function is mildly reduced, estimated at 45-50%. There is no increased left ventricular wall thickness. Left ventricular septal wall motion is abnormal with septal motion related to bundle branch block. The left ventricular diastolic function is grade I diastolic dysfunction. Technically difficult study with limited views. Regional wall motion assessment limited due to poor endomyocardial border definition. Right Ventricle Right ventricular chamber dimension is moderately enlarged. Right ventricular systolic function is moderately reduced. Left Atria Left atrial chamber dimension is normal. Right Atria Right atrial chamber dimension is mildly enlarged. Aortic Valve The aortic valve is probable trileaflet. There is no aortic valve stenosis. There is no aortic valve regurgitation. There is mild aortic valve calcification. Pulmonic Valve The pulmonic valve is not well visualized. There is trace pulmonic regurgitation. Mitral Valve The mitral valve has thickened leaflets. There is trace mitral valve regurgitation. The mitral valve annulus is moderately calcified. Tricuspid Valve The tricuspid valve leaflets are normal. There is trace tricuspid valve regurgitation. Severe pulmonary hypertension, estimated pulmonary arterial systolic pressure is 69 mmHg. Pericardium/Pleural The pericardium appears normal. There is small pericardial effusion. Inferior Vena Cava Normal inferior vena cava with >50% collapse upon inspiration consistent with normal right atrial pressure, 5 mmHg. Aorta The aortic root size at the sinus of Valsalva is normal. There is moderate aortic atherosclerosis. Left Ventricular Outflow Tract Name Value Normal LVOT 2D LVOT Diameter
== END 2021-11-09 08:26 | disposition home or self-care (01) ==
LOC: ANHCARD 08:27
PROVIDERS: PCP Family Medicine; Visit Provider Internal Medicine Pulmonary Disease
DX: R06.00 Dyspnea, unspecified (principal); I27.20 Pulmonary hypertension, unspecified
CPT/HCPCS: 93306

== ENCOUNTER 2021-11-18 07:50 | Outpatient (CLI) | payer MEDICARE, SELFPAY ==
--- NOTE | ~2021-11-18 | CT_ITS ---
EXAMINATION:CT lung screening DATE: 11/18/2021 08:12 INDICATION: Tobacco use. Former smoker with 70 pack year history. TECHNIQUE: Computed tomography (CT) of the chest was performed without intravenous contrast. Automate d exposure control and iterative reconstruction technique were employed. The dose-length product (DLP ) was 95.78 mGy-cm. COMPARISON: Chest CT 11/06/2020 FINDINGS: There is severe emphysema. A calcified right lung nodule is consistent with old granulomato us disease. There is a stable 7 mm nodule in right lower lobe. There is mild atelectasis bilaterally. No pleural effusion. The heart size is normal. There are coronary artery calcifications. No pericard ial effusion. There are changes of coronary artery bypass grafting. The central pulmonary arteries ar e enlarged, consistent with pulmonary arterial hypertension. There is mild bilateral gynecomastia. Th ere is mild thoracic spondylosis and severe lumbar spondylosis. IMPRESSION: 1. Lung-RADS category 2: Benign appearance or behavior. Reviewed, dictated and finalized at location A.
== END 2021-11-18 07:51 | disposition home or self-care (01) ==
PROVIDERS: PCP Family Medicine; Visit Provider Nurse Practitioner Family
DX: Z12.2 Encounter for screening for malignant neoplasm of respiratory organs (principal); Z87.891 Personal history of nicotine dependence
CPT/HCPCS: 71271

== ENCOUNTER 2022-03-26 08:23 | Outpatient (CLI) | payer MEDICARE, SELFPAY ==
--- NOTE | ~2022-03-26 | CT_ITS ---
EXAMINATION: CT diagnostic chest wo con DATE: 03/26/2022 08:48 INDICATION: Pulmonary nodule: Stable 7 mm right lower lobe nodule noted on 11/18/2021 CT lung screenin g examinations TECHNIQUE: Computed tomography (CT) of the chest was performed without intravenous contrast. Automate d exposure control and iterative reconstruction technique were employed. Exam dose: 86.29 mGy-cm tot al exam DLP. COMPARISON: 11/18/2021 CT lung screening examinations FINDINGS: Stable approximately 7 mm superior segment right lower lobe lung nodule. Stable probably ca lcified middle lobe granuloma. Chronic mild discoid scarring at the lingula. Mild discoid atelectasis in the right lower lobe. Severe emphysema is again noted. Normal heart size. Coronary artery calcifications. Aortic and great vessel calcifications. No thoraci c aortic aneurysm. No interval hilar or mediastinal mass lesion or lymphadenopathy is noted. No pericardial or pleural effusion. No pulmonary infiltrate or consolidation. No pneumothorax. Status post sternotomy. Degenerative changes of the thoracic and lumbar spine. IMPRESSION: Severe emphysema Stable 7 mm suprasellar right lower lobe pulmonary nodule Reviewed, dictated and finalized at Location A. Reviewed, dictated and finalized at location B. 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
== END 2022-03-26 08:24 | disposition home or self-care (01) ==
LOC: ANHIMG 08:27
PROVIDERS: PCP Family Medicine; Visit Provider Internal Medicine Pulmonary Disease
DX: R91.1 Solitary pulmonary nodule (principal); J43.9 Emphysema, unspecified
CPT/HCPCS: 71250

== ENCOUNTER 2022-04-15 09:27 | Outpatient (CLI) | payer MEDICARE, SELFPAY ==
[2022-04-15 10:07] LABS: Basophils Absolute Auto 0.1 K/mm3 (0.0-0.1); Basophils Percent Auto 0.9 % (0.2-1.2); Eosinophils Absolute Auto 0.3 K/mm3 (0-0.3); Hematocrit 53.3 % (42.0-52.0); Hemoglobin 16.4 g/dL (14.0-18.0); Immature Granulocyte Absolute 0.03 K/mm3 (0.00-0.031); Immature Granulocyte Percent A 0.3 % (0-0.5); Lymphocytes Absolute Auto 1.53 K/mm3 (0.9-3.2); Lymphocytes Percent Auto 17.8 % (18.3-44.2); Mean Corpuscular HGB Conc 30.8 g/dl (32-36); Mean Corpuscular Hemoglobin 27.7 pg (26-34); Mean Corpuscular Volume 89.9 fl (80-100); Mean Platelet Volume 9.9 fl (7.4-10.4); Monocytes Absolute Auto 0.6 K/mm3 (0.1-0.6); Monocytes Percent Auto 7.3 % (2.6-8.5); Neutrophils Absolute Auto 6.1 K/mm3 (1.3-6.7); Neutrophils Percent Auto 70.7 % (45.5-73.1); Platelet Count Result 249 k/mm3 (150-375); Red Blood Count 5.93 M/mm3 (4.6-6.20); Red Cell Distribution Width 16.7 % (11.5-14.5); White Blood Count 8.6 K/mm3 (4.5-10.0)
[2022-04-15 10:20] LABS: Anion Gap 7 mmol/L (8-16); Blood Urea Nitrogen 17 mg/dL (9-20); Carbon Dioxide 25 mmol/L (22-30); Chloride 106 mmol/L (98-107); Estimated Glomerular Filt Rate > 60; Glucose 88 mg/dL (65-110); Sodium 138 mmol/L (137-145)
== END 2022-04-15 09:28 | disposition home or self-care (01) ==
LOC: ANHLAB 09:29
PROVIDERS: PCP Family Medicine; Visit Provider Internal Medicine Critical Care Medicine
DX: R06.00 Dyspnea, unspecified (principal)
CPT/HCPCS: 36415; 80048; 85025

== ENCOUNTER 2022-07-08 08:06 | Outpatient (CLI) | payer MEDICARE, SELFPAY ==
[2022-07-08] VITALS (8 sets, daily range): PULSE 77–90; O2SAT 80–90
--- NOTE | 2022-07-08 09:36 | HOMEO2EVAL ---
Evaluation was performed at [facility] Home Oxygen Evaluation RC: Home Oxygen (O2) Evaluation Start: 07/08/22 09:29 Freq: Status: Active Protocol: RPE Activity Type Activity Date Activity User E-sign Co-sign Detail Recorded Client Recorded Date Recorded By Document 07/08/22 08:20 [email or web address] [email or web address] 07/08/22 09:36 DJO Document 07/08/22 08:25 [email or web address] [email or web address] 07/08/22 09:36 DJO Document 07/08/22 08:30 [email or web address] [email or web address] 07/08/22 09:36 DJO Document 07/08/22 08:35 [email or web address] [email or web address] 07/08/22 09:36 DJO Document 07/08/22 08:40 [email or web address] [email or web address] 07/08/22 09:36 DJO Document 07/08/22 08:45 [email or web address] [email or web address] 07/08/22 09:36 DJO Document 07/08/22 08:50 [email or web address] [email or web address] 07/08/22 09:36 DJO Document 07/08/22 09:10 [email or web address] [email or web address] 07/08/22 09:36 DJO 07/08/22 07/08/22 07/08/22 08:20 08:25 08:30 Home O2 Evaluation [Oxygen] -Test Phase Resting Resting Resting -Oxygen Delivery Room Air Nasal Cannula Nasal Cannula -Oxygen Flow Rate (L/min) 2 4 [Pulse Oximetry] -Pulse Oximetry (90-100 %) 84 L 85 L 90 [Pulse Rate] -Pulse Rate (60-100 beats/min) 77 80 79 [Evaluation] -Activity Tolerance [Charges] -Treatment Charges O2 Evaluation - Outpatient 07/08/22 07/08/22 07/08/22 08:35 08:40 08:45 Home O2 Evaluation [Oxygen] -Test Phase Exercise Exercise Exercise -Oxygen Delivery Nasal Cannula Nasal Cannula Nasal Cannula -Oxygen Flow Rate (L/min) 4 6 8 [Pulse Oximetry] -Pulse Oximetry (90-100 %) 80 L 84 L 86 L [Pulse Rate] -Pulse Rate (60-100 beats/min) 88 88 90 [Evaluation] -Activity Tolerance [Charges] -Treatment Charges 07/08/22 07/08/22 08:50 09:10 Home O2 Evaluation [Oxygen] -Test Phase Exercise Resting -Oxygen Delivery Nasal Cannula Nasal Cannula -Oxygen Flow Rate (L/min) 10 4 [Pulse Oximetry] -Pulse Oximetry (90-100 %) 90 90 [Pulse Rate] -Pulse Rate (60-100 beats/min) 84 77 [Evaluation] -Activity Tolerance Fair [Charges] -Treatment Charges
== END 2022-07-08 08:07 | disposition home or self-care (01) ==
LOC: ANHPFT 08:08
PROVIDERS: PCP Family Medicine; Visit Provider Internal Medicine Critical Care Medicine
DX: J96.11 Chronic respiratory failure with hypoxia (principal); I27.20 Pulmonary hypertension, unspecified; J44.9 Chronic obstructive pulmonary disease, unspecified
CPT/HCPCS: 94618

== ENCOUNTER 2022-07-08 09:29 | Inpatient (IN) | payer MEDICARE, SELFPAY ==
[2022-07-08] VITALS (37 sets, daily range): BP systolic 121–170; BP diastolic 70–108; PULSE 69–92; RESP 16–30; TEMP 36.4–37.1; O2SAT 86–100; BMI 21.9
--- NOTE | ~2022-07-08 | CT_ITS ---
Clinical Indication: Shortness of breath CT Scan of the Chest with Contrast: Technique: Contiguous sections were acquired throughout the chest after intravenous administration of 100 cc of Omnipaque 350. Dose reduction technique was used on this scan by utilizing automated expos ure control and iterative reconstruction technique. The dose-length product (DLP) was 334.33 mGy-cm. COMPARISON: 05/26/2021 Findings: There is no evidence of any significant mediastinal, hilar or axillary lymphadenopathy. There is no f illing defect in the pulmonary arterial tree to suggest pulmonary embolus. There is no evidence of ao rtic dissection or aneurysm. No pericardial effusion. Moderate right pleural effusion is present, with extensive right lower lobe atelectatic change. Minim al left pleural effusion is present. Probable moderate emphysema. Images through the upper abdomen reveal no abnormalities. Impression: No pulmonary embolus. Moderate right pleural effusion with extensive right lower lobe atelectasis. Minimal left pleural effusion. Moderate emphysema. Reviewed, dictated and finalized at [facility]. [employer] DIV[employer] CHAIR Impression: No pulmonary embolus. Moderate right pleural effusion with extensive right lower lobe atelectasis. Minimal left pleural effusion. Moderate emphysema.
--- NOTE | ~2022-07-08 | XR_ITS ---
Portable chest x-ray Comparison: 07/08/2022 Clinical History: Right pleural effusion Findings: Small right pleural effusion is present. Left lung is clear. Cardiomediastinal silhouette is stable. Bones and soft tissues are unremarkable. Impression: Small right pleural effusion. Reviewed, dictated and finalized at location . Impression: Small right pleural effusion.
--- NOTE | ~2022-07-08 | US_ITS ---
EXAMINATION: US venous doppler [facility] DATE: 07/08/2022 23:08 INDICATION: Lower limb swelling TECHNIQUE: Grayscale ultrasound images without and with compression and Doppler ultrasound images of the bilateral lower extremity veins were obtained. COMPARISON: None. FINDINGS: The visualized portions of right common femoral vein, profunda (deep) femoral vein, femoral vein, pop liteal vein, posterior tibial veins, peroneal veins, gastrocnemius vein and greater saphenous vein ou tflow are patent. The visualized portions of left common femoral vein, profunda femoral vein, femoral vein, popliteal v ein, posterior tibial veins, peroneal veins, gastrocnemius vein and greater saphenous vein outflow ar e patent. IMPRESSION: 1. No deep venous thrombosis in either lower limb. Reviewed, dictated and finalized at location A. TY HEAD
--- NOTE | ~2022-07-08 | XR_ITS ---
XR chest 2V DATE: 07/08/2022 11:09 INDICATION: Shortness of breath upon exertion. History of COPD and coronary artery bypass graft surge ry. TECHNIQUE: AP and lateral views COMPARISON: 03/26/2022 CT chest FINDINGS: There are bilateral lower lung infiltrates and/or atelectasis and mild pleural effusions, g reater on the right. Bilateral hyperinflation consistent with clinical history of COPD. Status post sternotomy and coronary bypass graft surgery. Borderline heart size. Thoracic aortic calc ification. Diffuse osteopenia. IMPRESSION: Bilateral lower lung infiltrate and/atelectasis, right greater than left Bilateral mild pleural effusions, right greater than left Reviewed, dictated and finalized at location L. 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
--- NOTE | 2022-07-08 09:54 | ECG_ITS ---
Measurements Intervals [place] Rate: 70 P: 41 [place]: 187 QRS: 158 QRSD: 119 T: 252 QT: 454 QTc: 490 Interpretive Statements SINUS RHYTHM RIGHT AXIS DEVIATION INCOMPLETE RIGHT BUNDLE BRANCH BLOCK DELAYED PRECORDIAL R/S TRANSITION COMPARED TO ECG 04/22/2020 08:28:18 ST-T WAVE ABNORMALITY IN ANTEROLAT/INF LEADS- CONSIDER ISCHEMIA BASELINE ARTIFACT- I, III, AVR, AVL, AVF, V1, V4-V6 ABNORMAL ECG NO SIGNIFICANT CHANGES Electronically Signed On 07-08-2022 10:51:13 PICTURE FRAME MAKER by Nils Valle D.O.
--- NOTE | 2022-07-08 10:15 | ED.SOB ---
HPI - SOB/Dyspnea General Chief Complaint: Shortness of Breath/Dyspnea Stated Complaint: Increased O2 requirement Time Seen by Provider: 07/08/22 10:14 Source: patient and family History of Present Illness HPI Narrative: Patient is 76 years old white male, history of COPD on chronic 5 L oxygen by nasal cannula. Complaining of shortness of breath on exertion over the last 2 months, was seen by his shift coordinator who ordered oxygen walking test and patient saturation dropped on 10 L to 70s. Patient referred to our emergency room for further evaluation. Currently his saturation on 5 L is 89%, patient is telling me that is normal for him. Patient reports swelling of the ankles for the last 2 weeks. Related Data Home Medications Medication Instructions Recorded Confirmed aspirin 81 mg chewable tablet 81 mg PO DAILY 04/22/20 07/06/22 atorvastatin 80 mg tablet 80 mg DAILY 04/22/20 07/06/22 citalopram 20 mg tablet 20 mg DAILY 04/22/20 07/06/22 lisinopril 20 mg tablet 10 mg PO DAILY 06/28/22 07/06/22 Allergies Allergy/AdvReac Type Severity Reaction Status Date / Time tiotropium Allergy Dizziness Verified 07/06/22 15:21 [From Spiriva with HandiHaler] CRAB MEAT Allergy Severe Hives Uncoded 07/06/22 15:21 Review of Systems Review of Systems: All systems reviewed & are unremarkable except as noted in HPI and below PMFSH Past Medical History Medical History ASCVD (arteriosclerotic cardiovascular disease) Atherosclerosis of aorta Atherosclerotic heart disease of [place] coronary artery without angina pectoris Benign essential hypertension Coronary artery disease Depression Emphysema lung Erectile dysfunction Generalized anxiety disorder Hyperlipidemia Hypertension Hypogonadism Hypothyroidism Loss of appetite Major depressive disorder, single episode, moderate Other spondylosis with radiculopathy, lumbar region Raynaud's syndrome without gangrene Sciatica, left side Solitary pulmonary nodule Surgical History Surgical History History of cardiac cath History of coronary artery bypass graft 3 vessel Family History Family History Father Hypertension Alcoholism Social History Social History Smoking packs per day: 2 Smoking cigarettes per day: 40.0 Years smoked: 35 Smoking pack-years: 70.00 Smoking status: Former smoker Tobacco type: cigarettes Second hand tobacco smoke exposure: No Smoking end date: 05/02/06 Alcohol intake: never Substance use: never Substance use type: does not use Lack of Transportation: No Lack of Food: Never True Current Housing: I Have Housing Concerned About Future Housing: No Difficulty Paying Gas/Electric Bills: No Difficulty Paying for Meds: No Currently Unemployed: YES Difficulty w/ Childcare or Family Care: No Living arrangements: with family Additional living arrangements comments: lives with spouse Occupation/Education: retired Gender identity (if verbalized by the patient): Male Sexual Orientation (if Verbalized by the Patient): Straight or Heterosexual Spiritual care concerns: No Exam Narrative: General appearance: Well-developed, well-nourished Skin: 1+ edema ankles bilaterally Head: Normocephalic, nontraumatic Eyes: Clear conjunctiva ENT: Oropharynx normal, ears normal, nose normal Neck: Supple, nontender Chest and respiratory: Airway patent, no respiratory distress, no accessory muscle use, no wheezing, no rhonchi, diminution of air entry bilaterally Heart: Regular rate/rhythm Abdomen: Soft, nontender, no organomegaly, quiet bowel sounds Vascular: Normal peripheral pulses, normal capillary refill. Musculoskeletal: Normal range of motion, nontender back Neurologic: Alert and oriented ?3, MESH CUTTER is normal as tested,
[2022-07-08 10:20] LABS: Alanine Aminotransferase 39 U/L (6-50); Albumin Level 4.3 g/dL (3.5-5.1); Alkaline Phosphatase 164 U/L (38-126); Anion Gap 8 mmol/L (8-16); Aspartate Amino Transferase 53 U/L (17-59); Blood Urea Nitrogen 16 mg/dL (9-20); Calcium 9.3 mg/dL (8.4-10.2); Carbon Dioxide 26 mmol/L (22-30); Chloride 105 mmol/L (98-107); Estimated CRCL calculation 57 ml/min; Estimated Glomerular Filt Rate > 60; Glucose 84 mg/dL (65-110); Potassium 3.7 mmol/L (3.4-5.0); Sodium 139 mmol/L (137-145)
[2022-07-08 10:24] LABS: Basophils Absolute Auto 0.1 K/mm3 (0.0-0.1); Basophils Percent Auto 0.9 % (0.2-1.2); Eosinophils Absolute Auto 0.2 K/mm3 (0-0.3); Eosinophils Percent Auto 2.5 % (0-4.4); Hematocrit 54.4 % (42.0-52.0); Immature Granulocyte Absolute 0.02 K/mm3 (0.00-0.031); Immature Granulocyte Percent A 0.3 % (0-0.5); Lymphocytes Absolute Auto 0.89 K/mm3 (0.9-3.2); Lymphocytes Percent Auto 13.9 % (18.3-44.2); Mean Corpuscular HGB Conc 31.3 g/dl (32-36); Mean Corpuscular Hemoglobin 27.3 pg (26-34); Mean Corpuscular Volume 87.3 fl (80-100); Mean Platelet Volume 9.8 fl (7.4-10.4); Monocytes Absolute Auto 0.4 K/mm3 (0.1-0.6); Monocytes Percent Auto 6.2 % (2.6-8.5); Neutrophils Absolute Auto 4.9 K/mm3 (1.3-6.7); Neutrophils Percent Auto 76.2 % (45.5-73.1); Platelet Count Result 186 k/mm3 (150-375); Red Blood Count 6.23 M/mm3 (4.6-6.20); Red Cell Distribution Width 17.7 % (11.5-14.5); White Blood Count 6.4 K/mm3 (4.5-10.0)
[2022-07-08 10:31] LABS: NT Pro B Type Natriuretic Pept 6350 pg/mL (19.9-100); Troponin I < 0.012 ng/mL (0.000-0.034)
[2022-07-08 10:32] LABS: INR 1.2; Prothrombin Time 14.8 Seconds (11.1-14.7)
[2022-07-08 10:33] LABS: Partial Thromboplastin Time 36.9 SECONDS (22.3-36.8)
[2022-07-08 11:04] LABS: Alveolar/Arterial O2 Gradient 193.8 mmHg; Base Excess ABG -0.2 mEq/l (+/-2.0); Fractional Inspired Oxygen 40 %; HCO3 ABG 22.7 mEq/l (22.0-26.0); Oxygen Content ABG 20.7 %vol (16.0-22.0); Oxygen Saturation ABG 89.6 % (95.0-100.0); PCO2 ABG 33.1 mmHg (35.0-45.0); PO2 ABG 53.3 mmHg (80.0-100.0); PO2 FiO2 Ratio Arterial Blood 1.33 %; Total Hemoglobin 16.9 g/dL (12.0-18.0); pH ABG 7.455 (7.350-7.450)
[2022-07-08 11:06] LABS: Device NASAL CANNULA; Modified Allen's Test Pass; Oxyhemoglobin 87.3 % THb (90.0-100.0); Site Drawn RIGHT RADIAL
--- NOTE | 2022-07-08 11:08 | PCRCNOTE ---
RT notified Radha Cam MD of ABG results. Patient was on 5L NC during time of ABG draw. stated to place patient on HFNC to keep SpO2 between 92-95%.
[2022-07-08 12:03] LABS: D Dimer 1.79 ug/mL (<0.48)
[2022-07-08 12:27] LABS: SARS-CoV-2 RNA PCR Negative
[2022-07-08] MEDS: ALBUTEROL SULFATE NEB 2.5 MG/3 ML INH INHALATION ×2 (13:57→20:57)
[2022-07-08] MEDS: FUROSEMIDE INJ 100 MG/10 ML VIAL 60 MG IV PUSH (14:27)
--- NOTE | 2022-07-08 15:30 | PM.IMHP ---
H&P: HPI History of Present Illness Date/Time: 07/08/22 15:30 Chief Complaint: Shortness of breath and hypoxia. Narrative: This is a very pleasant 76-year-old male with chronic respiratory failure on 5 L nasal cannula, chronic obstructive pulmonary disease with severe emphysema, coronary artery disease status post three-vessel bypass, hypertension, severe pulmonary hypertension, combined systolic and diastolic congestive heart failure with a recent EF of 45 to 50% and other comorbidities who presented to the emergency department via wheelchair from the respiratory therapy department for evaluation of shortness of breath and hypoxia. Patient provides the following history. He has chronic shortness of breath which has been worse over the last several months. It is to the point where he is ?gasping for air? when walking 20 to 30 ft at home or when bending over to pick something up off of the ground. He had a 6 minute walk test today and according to the patient he had increasing oxygen requirements with ambulation and was up to 10 L nasal cannula however his SpO2 never got above the 70s. He was then referred to the emergency department. He was afebrile on arrival with stable vital signs. He is currently on 8 L high-flow with an SpO2 in the mid 90s. Pertinent labs include a WBC of 6.4, D-dimer 1.79, and proBNP 6350. Chest CTA showed no evidence of pulmonary embolism, minimal left pleural effusion, and moderate right pleural effusion with extensive right lower lobe atelectasis. Nebulizer given in the ED did helped his shortness of breath somewhat. He was also given furosemide 40 mg IV push x1 and is being admitted for further treatment. He denies fever and sweats but reports that he is always chilled. He has not had any recent cold or flu symptoms. He denies chest pain, pleuritic pain, and palpitations. Over the last couple of weeks he has developed mir ankle edema. No calf pain or tenderness. Denies significant orthopnea. Patient reportedly has sleep apnea but was intolerant to CPAP and has not used one for many years. Review of Systems Review of Systems: Twelve systems were reviewed and are negative except for as per HPI. [facility] Past Medical History Medical History (Updated 07/08/22 @ 22:28 by Meli Huerta PA-C) Atherosclerosis of aorta Benign essential hypertension Chronic respiratory failure with hypoxia Coronary artery disease Depression Emphysema lung Erectile dysfunction Generalized anxiety disorder Hyperlipidemia Hypertension Hypogonadism Hypothyroidism Major depressive disorder, single episode, moderate Obstructive sleep apnea Intolerant to CPAP. Raynaud's syndrome without gangrene Sciatica, left side Solitary pulmonary nodule Surgical History Surgical History (Updated 07/08/22 @ 22:24 by Meli Huerta PA-C) History of cardiac cath History of three vessel coronary artery bypass Family History Family History Father Hypertension Alcoholism Social History Social History (Updated 07/08/22 @ 22:25 by Meli Huerta PA-C) Social History: Surrogate medical decision maker: Constantine Ko JrAva, son. Code status: Full code. Smoking packs per day: 2 Smoking cigarettes per day: 40.0 Years smoked: 35 Smoking pack-years: 70.00 Smoking status: Former smoker Tobacco type: cigarettes Second hand tobacco smoke exposure: No Smoking end date: 05/02/06 Alcohol intake: never Substance use: never Substance use type: does not use Lack of Transportation: No Lack of Food: Never True Current Housing: I Have Housing Concerned About Future Housing: No Difficulty Paying Gas/Electric Bills: No Difficulty Paying for Meds: No Currently Unemployed: YES Education: High School Diploma/GED Difficulty w/ Childcare or Family Care: No Living arrangements: with family Additional living arrangements comments: Lives with spouse in [place]
--- NOTE | 2022-07-08 16:51 | ADMGEN ---
This patient, Constantine Ko, was admitted to Medical Room 248-01. Patient/family oriented to hospital policies and general routines including ID bracelet, bed and alarms, visiting hours, pain management, procedures, bathroom and other care routines, personal items, smoking policy, room service/diet, and visiting hours. Information on how to activate the Rapid Response Team has been discussed. Patient/Family are encouraged to report perceived risks to care and to ask questions if they do not understand what they are told or what they should do.
[2022-07-08] MEDS: NITROGLYCERIN OINTMENT 1 INCH DOSE TRANSDERM (18:32)
[2022-07-08] MEDS: FUROSEMIDE INJ 40 MG/4 ML VIAL IV PUSH (20:18)
[2022-07-09] VITALS (17 sets, daily range): BP systolic 110–125; BP diastolic 74–84; PULSE 61–84; RESP 16–20; TEMP 36.6–37; O2SAT 92–97
--- NOTE | 2022-07-09 | ECHO_ITS ---
Patient Info Name: Constantine Ko Age: 76 years : 1945 Gender: Male Ht: 72 in Wt: 148 lbs BSA: 1.84 m2 HR: 74 bpm BP: 113 / 74 mmHg Heart Rhythm: Sinus Rhythm Technical Quality: Fair Exam Date: 07/09/2022 10:51 AM [facility] Room: 248 Patient Status: Inpatient Admit Date: 07/08/2022 Staff Ordering Physician: Day Birch APRN Pc Analyst: Farzaneh Rodriguez RDCS Attending Provider: Taras Chan MD Referring Physician: Queta RODRIGUEZ; Exam Type: CA echo doppler color flow Study Info Indications - cad cabg pleural effusion Complete two-dimensional, color flow and Doppler transthoracic echocardiogram is performed. Summary 1. Complete two-dimensional, color flow and Doppler transthoracic echocardiogram is performed. 2. Left ventricular chamber dimension is normal. 3. Left ventricular systolic function is moderately reduced, estimated at 40-45%. 4. There is mildly increased left ventricular wall thickness. 5. The left ventricular diastolic function is grade I diastolic dysfunction. 6. Right ventricular chamber dimension is severely enlarged. 7. Right ventricular systolic function is reduced. 8. Flattening of the septum in diastole and systole consistent with right ventricular volume and pressure overload. 9. Left atrial chamber dimension is moderately enlarged. 10. Right atrial chamber dimension is severely enlarged. 11. There is moderate tricuspid valve regurgitation. 12. Dilated inferior vena cava with <50% collapse upon inspiration consistent with elevated right atrial pressure, 15 mmHg. 13. Severe pulmonary hypertension with estimated PASP 89mmHg. Left Ventricle Left ventricular chamber dimension is normal. Left ventricular systolic function is moderately reduced, estimated at 40-45%. There is mildly increased left ventricular wall thickness. Left ventricular septal wall motion is abnormal with septal motion related to bundle branch block. The left ventricular diastolic function is grade I diastolic dysfunction. Right Ventricle Flattening of the septum in diastole and systole consistent with right ventricular volume and pressure overload. Right ventricular chamber dimension is severely enlarged. Right ventricular systolic function is reduced. Left Atria Left atrial chamber dimension is moderately enlarged. Right Atria Right atrial chamber dimension is severely enlarged. Atrial Septum Intact interatrial septum visualized by color flow imaging. Aortic Valve The aortic valve is probable trileaflet. There is mild aortic valve sclerosis. There is no aortic valve stenosis. Pulmonic Valve The pulmonic valve is not well visualized. Mitral Valve There is trace mitral valve regurgitation. The mitral valve annulus is mildly calcified. Tricuspid Valve There is moderate tricuspid valve regurgitation. Pericardium/Pleural There is no pericardial effusion. Inferior Vena Cava Dilated inferior vena cava with <50% collapse upon inspiration consistent with elevated right atrial pressure, 15 mmHg. Aorta The aortic root size at the sinus of Valsalva is normal. Left Ventricular Outflow Tract Name Value Normal LVOT 2D LVOT Diameter
[2022-07-09] MEDS: ALBUTEROL SULFATE NEB 2.5 MG/3 ML INH INHALATION ×3 (01:48→14:18)
[2022-07-09 06:01] LABS: Hematocrit 50.3 % (42.0-52.0); Hemoglobin 16.2 g/dL (14.0-18.0); Mean Corpuscular HGB Conc 32.2 g/dl (32-36); Mean Corpuscular Hemoglobin 27.5 pg (26-34); Mean Corpuscular Volume 85.3 fl (80-100); Mean Platelet Volume 9.9 fl (7.4-10.4); Platelet Count Result 179 k/mm3 (150-375); Red Cell Distribution Width 16.7 % (11.5-14.5); White Blood Count 5.7 K/mm3 (4.5-10.0)
[2022-07-09 06:12] LABS: Anion Gap 7 mmol/L (8-16); Blood Urea Nitrogen 21 mg/dL (9-20); Calcium 8.7 mg/dL (8.4-10.2); Carbon Dioxide 31 mmol/L (22-30); Chloride 103 mmol/L (98-107); Estimated CRCL calculation 46 ml/min; Estimated Glomerular Filt Rate 59; Glucose 83 mg/dL (65-110); Sodium 141 mmol/L (137-145)
[2022-07-09 08:12] LABS: Free T4 Free Thyroxine Reflex 1.08 ng/dL (0.78-2.19)
[2022-07-09] MEDS: FLUTICASONE/UMECLIDIN/VILANTER 100-62.5-25 MCG ELLIPTA 1 PUFF INHALATION (08:16)
[2022-07-09] MEDS: ASPIRIN 81 MG CHEWABLE TABLET PO (08:30)
[2022-07-09] MEDS: ENOXAPARIN 40 MG/0.4 ML SYRINGE SUB-Q (08:31)
[2022-07-09] MEDS: CITALOPRAM HYDROBROMIDE 20 MG TABLET 40 MG PO (08:31)
[2022-07-09] MEDS: predniSONE 10 MG TABLET PO (08:31)
[2022-07-09] MEDS: lisinopriL 10 MG TABLET PO (08:31)
[2022-07-09] MEDS: ATORVASTATIN 40 MG TABLET 80 MG BY MOUTH (08:31)
[2022-07-09] MEDS: FUROSEMIDE INJ 40 MG/4 ML VIAL IV PUSH (08:32)
--- NOTE | 2022-07-09 08:58 | PM.IMPN ---
Progress Note: A&P Assessment and Plan (1) Acute and chronic respiratory failure with hypoxia: Code(s): J96.21 - Acute and chronic respiratory failure with hypoxia Status: Acute Assessment and Plan: Patient presented to the emergency department with complaints of increasing shortness of breath, gasping for air, and SpO2 in the 70s on 10 L nasal cannula. Chest CT scan with moderate right pleural effusion with RLL atelectasis and minimal left pleural effusion and moderate emphysema. BNP 6350. Echocardiogram ordered and shows severe pulmonary hypertension with PASP estimated at 89. ABG showed hypoxemia paO2 53 on fiO2 40%. No wheezing on exam noted to suggest COPD acute exacerbation. Continue supplemental O2 and wean as tolerated to keep spO2>90% Pulmonology consulted and appreciate recommendations. (2) Acute on chronic congestive heart failure: Qualifiers: Heart failure type: combined systolic and diastolic Qualified Code(s): I50.43 - Acute on chronic combined systolic (congestive) and diastolic (congestive) heart failure Code(s): I50.9 - Heart failure, unspecified Status: Acute Assessment and Plan: Echocardiogram in October 2021 showed both left-sided and right-sided heart failure with an LVEF of 40 to 45% and diastolic dysfunction. BNP 6350 with pleural effusions and lower extremity swelling on exam. Repeat Echo with unchanged LVEF but with worsening MIRA/RVE and right sided heart failure secondary to pulmonary hypertension. Treated with lasix 40 mg IV BID, however, will hold diuretics for now given severe right sided heart-failure. Monitor daily weights and strict I/O. (3) Chronic obstructive pulmonary disease: Code(s): J44.9 - Chronic obstructive pulmonary disease, unspecified Status: Chronic Assessment and Plan: No wheezing on exam. Continue Trelegy and PRN duonebs. Continue scheduled prednisone 10 mg daily (4) Obstructive sleep apnea: Code(s): G47.33 - Obstructive sleep apnea (adult) (pediatric) Status: Chronic Assessment and Plan: The patient has untreated sleep apnea and states he is intolerant to CPAP. (5) Hypertension: Qualifiers: Hypertension type: primary hypertension Qualified Code(s): I10 - Essential (primary) hypertension Code(s): I10 - Essential (primary) hypertension Status: Chronic Assessment and Plan: Continue lisinopril. Monitor BP as he was also on diuretics. (6) Coronary artery disease: Code(s): I25.10 - Atherosclerotic heart disease of [place] coronary artery without angina pectoris Status: Chronic Assessment and Plan: No chest pain. Continue aspirin and lipitor. Plan CODE STATUS: DNR Disposition: patient is from home. PT/OT consulted. Time Spent With Patient Time: 45 minutes time spent with patient assessment, patient education, consultation with cardiology on imaging, review of labs, vitals and nursing documentation. Subjective Date/time seen: 07/09/22 08:58 Interval history: He reports his breathing and leg swelling is improved today. His breathing has worsened significantly over the last several months and he feels out of breath with minimal activity. He is currently on 5L high flow nasal cannula. He denies SOB at rest, no sputum changes or palpitations. He is worried about constipation. Review of Systems Review of Systems: All systems reviewed & are unremarkable except as noted in HPI and below Exam Narrative: General: Chronically ill appearing, nontoxic, and no acute distress. HEENT: Normocephalic. PERRL. Sclera anicteric. Oral mucosa moist. Neck: Supple. No JVP above clavicle in the upright position. Respiratory: respirations nonlabored at rest. Lung sounds are significantly diminished bibasilar lobes without wheezing or rhonchi. Cardiovascular: Regular rate and rhythm with S1-S2. Gastrointestinal: Abdomen is s
[2022-07-09 09:30] LABS: Total Triiodothyronine (T3) 1.08 NG/ML (0.97-1.69)
[2022-07-09] MEDS: POTASSIUM CHLORIDE 20 MEQ TABLET 40 MEQ PO (10:25)
[2022-07-09] MEDS: POTASSIUM CHLORIDE INJ 40 MEQ in SODIUM CHLORIDE 0.9% IV 500 ML 130 MEQ IVPB (10:27)
[2022-07-09] MEDS: SENNA/DOCUSATE SODIUM TABLET 1 TAB PO (20:29)
[2022-07-10] VITALS (10 sets, daily range): BP systolic 106–126; BP diastolic 69–91; PULSE 59–93; RESP 16–20; TEMP 36.4–36.6; O2SAT 93–96
[2022-07-10 05:42] LABS: Anion Gap 6 mmol/L (8-16); Blood Urea Nitrogen 24 mg/dL (9-20); Calcium 8.8 mg/dL (8.4-10.2); Carbon Dioxide 28 mmol/L (22-30); Chloride 101 mmol/L (98-107); Estimated CRCL calculation 50 ml/min; Estimated Glomerular Filt Rate > 60; Glucose 95 mg/dL (65-110); Potassium 3.5 mmol/L (3.4-5.0); Sodium 135 mmol/L (137-145)
--- NOTE | 2022-07-10 06:26 | PM.CNPUL ---
Assessment and Plan Assessment and plan (1) Pulmonary hypertension: Code(s): I27.20 - Pulmonary hypertension, unspecified Status: Acute Assessment and Plan: From primary physicians note:?An echocardiogram done on May 30, 2020 showed moderate pulmonary hypertension based on right ventricular systolic pressure.? Estimated RVSP is 53mmHg. Repeat echo with RVSP 69 on echo from 11/09/2021. Current echocardiogram demonstrated LVEF 40-45%, grade 1 diastolic dysfunction, severely enlarged right ventricle with reduced right ventricular systolic function, flattening of the septum in diastole and systole consistent with right ventricular volume and pressure overload. Moderately enlarged left atrium. Right atrial severely enlarged. Moderate tricuspid regurg. Severe pulmonary hypertension with an estimated PASP of 89. I believe the etiology of the patient's pulmonary hypertension is multifactorial from left-sided heart disease with fluid overload (type 2), COPD (type 3), untreated obstructive sleep apnea (type 3), and hypoxemic respiratory failure (type 3). Treatment at this time is aimed at optimizing each of these issues. PLAN: For heart disease with fluid overload: will aggressively diurese as tolerated by his cardiac and renal Systems. Optimizing his fluid status is 1 thing that we may be able to fix. My plan would be to aggressively diurese over the next 48 hours and if he still has a large right pleural effusion to consider thoracentesis. Patient's has no evidence of an active COPD exacerbation, bronchitis or pneumonia and will continue his triple inhalers. Patient is intolerant to CPAP and currently we have no affective treatment to manage his obstructive sleep apnea. Continue supplemental oxygen to maintain saturations greater than 90%. Spoke to the patient and explained to him that he has severe lung disease, heart disease, untreated obstructive sleep apnea and hypoxic respiratory failure and that we are attempting to maximize all of these treatments. I spoke to his on speaker phone as well. He is DNR Discussed with Damari Yusuf, will follow with you. (2) Chronic obstructive pulmonary disease: Code(s): J44.9 - Chronic obstructive pulmonary disease, unspecified Status: Chronic Assessment and Plan: 76-year-old man with a history of GOLD grade 2 group B COPD (64 PY, quit 2006, alpha 1 phenotype MM on 04/01/2022, 11/04/2020 FEV1 1.81, 55%, no bronchodilaor response, normal lung volumes and DLCO moderately decreased when adjusted for alveolar volume), 07/06/2022 prescribed but did not start prednisone 10 mg PO Q day, primary central sleep apnea with some obstruction and Richard-Mccurdy breathing, pulmonary hypertension (RVSP 69 on echo from 11/09/2021 and RVSP 53 on 05/30/2020), hypoxemic respiratory failure requiring 5 L at rest and with exertion and 10 L with exertion and 5 L with sleep sleep, COVID pneumonia 04/2020, states he never fully recovered. There is no evidence of hypercarbic respiratory failure this patient had a blood gas on 07/08 on 5 L nasal cannula 7.46/33/53. 07/10 No wheezing and no evidence clinically of a COPD exacerbation, tracheobronchitis or pneumonia. He is maintained on breztri at home. Plan: I would continue trilogy 100-60 2.5-25 at 1 puff q.day. Will continue supplemental oxygen to maintain saturations greater than 90. Currently the patient is on 5 L nasal cannula with saturations 96%. Will check an overnight oximetry on 5 L to night. It may be very difficult to correct his nocturnal hypoxemia given his history of obstructive sleep apnea and is inability to tolerate CPAP. (3) Acute on chronic congestive heart failure: Qualifiers: Heart failure type: combined systolic and diastolic Qualified Code(s): I50.43 - Acute on chronic combined systolic (congestive) and diastolic (congestive) heart failure Code(s): I50.9 - Heart failure, unspecified
[2022-07-10] MEDS: FLUTICASONE/UMECLIDIN/VILANTER 100-62.5-25 MCG ELLIPTA 1 PUFF INHALATION (08:20)
[2022-07-10] MEDS: ATORVASTATIN 40 MG TABLET 80 MG BY MOUTH (09:55)
[2022-07-10] MEDS: ASPIRIN 81 MG CHEWABLE TABLET PO (09:55)
[2022-07-10] MEDS: lisinopriL 10 MG TABLET PO (09:56)
[2022-07-10] MEDS: predniSONE 10 MG TABLET PO (09:56)
[2022-07-10] MEDS: ENOXAPARIN 40 MG/0.4 ML SYRINGE SUB-Q (09:56)
[2022-07-10] MEDS: CITALOPRAM HYDROBROMIDE 20 MG TABLET 40 MG PO (09:56)
[2022-07-10] MEDS: POTASSIUM CHLORIDE 20 MEQ TABLET.ER 40 MEQ PO (09:56)
--- NOTE | 2022-07-10 13:44 | PM.IMPN ---
Progress Note: A&P Assessment and Plan (1) Acute and chronic respiratory failure with hypoxia: Code(s): J96.21 - Acute and chronic respiratory failure with hypoxia Status: Acute Assessment and Plan: Patient presented to the emergency department with complaints of increasing shortness of breath, gasping for air, and SpO2 in the 70s on 10 L nasal cannula. Chest CT scan with moderate right pleural effusion with RLL atelectasis and minimal left pleural effusion and moderate emphysema. BNP 6350. Echocardiogram ordered and shows severe pulmonary hypertension with PASP estimated at 89. ABG showed hypoxemia paO2 53 on fiO2 40%. No wheezing on exam noted to suggest COPD acute exacerbation. Continue supplemental O2 and wean as tolerated to keep spO2>90% Pulmonology consulted and appreciate recommendations- continue diuresis. (2) Acute on chronic congestive heart failure: Qualifiers: Heart failure type: combined systolic and diastolic Qualified Code(s): I50.43 - Acute on chronic combined systolic (congestive) and diastolic (congestive) heart failure Code(s): I50.9 - Heart failure, unspecified Status: Acute Assessment and Plan: Echocardiogram in October 2021 showed both left-sided and right-sided heart failure with an LVEF of 40 to 45% and diastolic dysfunction. BNP 6350 with pleural effusions and lower extremity swelling on exam. Repeat Echo with unchanged LVEF 45% but with worsening MIRA/RVE and right sided heart failure secondary to pulmonary hypertension with PASP 89 mmHg. Continue lasix 40 mg IV BID. Discussed with Pulmonology Monitor daily weights and strict I/O. Will consult Cardiology for recommendations on GMDT. He is a patient of Dr. Ramirez. Repeat BNP in am. (3) Chronic obstructive pulmonary disease: Code(s): J44.9 - Chronic obstructive pulmonary disease, unspecified Status: Chronic Assessment and Plan: No wheezing on exam. Continue Trelegy and PRN duonebs. <del>Continue</del> <del>scheduled</del> <del>prednisone</del> <del>10</del> <del>mg</del> <del>daily</del> Prednisone was reportedly started by his PCP but he has not been taking this. DC prednisone. (4) Obstructive sleep apnea: Code(s): G47.33 - Obstructive sleep apnea (adult) (pediatric) Status: Chronic Assessment and Plan: The patient has untreated sleep apnea and states he is intolerant to CPAP. Continue supplemental O2. Overnight apnea monitoring. (5) Hypertension: Qualifiers: Hypertension type: primary hypertension Qualified Code(s): I10 - Essential (primary) hypertension Code(s): I10 - Essential (primary) hypertension Status: Chronic Assessment and Plan: Continue lisinopril. Monitor BP closely while on diuretics. (6) Coronary artery disease: Code(s): I25.10 - Atherosclerotic heart disease of [place] coronary artery without angina pectoris Status: Chronic Assessment and Plan: No chest pain. Continue aspirin and lipitor. Plan CODE STATUS: DNR Disposition: patient is from home. PT/OT consulted. 07/09- I spoke with the patient at length regarding his worsening pulmonary hypertension and right heart failure. We discussed consulting Pulmonology. He stated to me that he knew things were getting bad and that he sold his house to his son and bought a [place]onzalez for his recently. He states he has a living will and is putting his affairs in order. Code status is DNR and he reaffirms this decision with me. We discussed hospice care briefly. For now, he would like to continue current management. Time Spent With Patient Time: 45 minutes time spent with patient assessment, patient education, review of labs, vitals and nursing documentation. All questions answered to the best of my ability. Subjective Date/time seen: 07/10/22 13:44 Interval history: He denies new complaints or overnight events. He continues
[2022-07-10] MEDS: polyethylene glycoL 3350 17 GM POWD.PACK PO (15:04)
[2022-07-10] MEDS: FUROSEMIDE INJ 40 MG/4 ML VIAL IV PUSH (16:48)
--- NOTE | 2022-07-10 16:49 | PC.NURSE ---
Could not get patient's wristband to scan. Entered V-number manually to verify Lasix.
[2022-07-10] MEDS: SENNA/DOCUSATE SODIUM TABLET 1 TAB PO (20:21)
[2022-07-11] VITALS (10 sets, daily range): BP systolic 110–112; BP diastolic 63–70; PULSE 60–80; RESP 16–20; TEMP 36.2–36.3; O2SAT 93–98
[2022-07-11 07:56] LABS: Hematocrit 52.9 % (42.0-52.0); Hemoglobin 16.7 g/dL (14.0-18.0); Mean Corpuscular HGB Conc 31.6 g/dl (32-36); Mean Corpuscular Hemoglobin 27.5 pg (26-34); Platelet Count Result 208 k/mm3 (150-375); Red Blood Count 6.08 M/mm3 (4.6-6.20); White Blood Count 9.8 K/mm3 (4.5-10.0)
[2022-07-11 08:04] LABS: Anion Gap 3 mmol/L (8-16); Blood Urea Nitrogen 28 mg/dL (9-20); Calcium 8.7 mg/dL (8.4-10.2); Carbon Dioxide 34 mmol/L (22-30); Chloride 100 mmol/L (98-107); Estimated CRCL calculation 46 ml/min; Estimated Glomerular Filt Rate 59; Glucose 94 mg/dL (65-110); Potassium 4.2 mmol/L (3.4-5.0); Sodium 137 mmol/L (137-145)
[2022-07-11 08:11] LABS: NT Pro B Type Natriuretic Pept 3420 pg/mL (19.9-100)
--- NOTE | 2022-07-11 08:23 | PM.IMPN ---
Progress Note: A&P Assessment and Plan (1) Acute and chronic respiratory failure with hypoxia: Code(s): J96.21 - Acute and chronic respiratory failure with hypoxia Status: Acute Assessment and Plan: Patient presented to the emergency department with complaints of increasing shortness of breath, gasping for air, and SpO2 in the 70s on 10 L nasal cannula. No wheezing on exam noted to suggest COPD acute exacerbation. Chest CT scan with moderate right pleural effusion with RLL atelectasis and minimal left pleural effusion and moderate emphysema. Echocardiogram ordered and shows severe pulmonary hypertension with PASP estimated at 89. ABG showed hypoxemia paO2 53 on fiO2 40%. Continue supplemental O2 and wean as tolerated to keep spO2>90% Pulmonology consulted and appreciate recommendations- continue diuresis. Repeat imaging in the morning. (2) Bilateral pleural effusion: Code(s): J90 - Pleural effusion, not elsewhere classified Status: Acute Assessment and Plan: Noted on imaging. Secondary to acute on chronic CHF. continue judicious diuresis. Chest x-ray tomorrow and possible thoracentesis. (3) Acute on chronic congestive heart failure: Qualifiers: Heart failure type: combined systolic and diastolic Qualified Code(s): I50.43 - Acute on chronic combined systolic (congestive) and diastolic (congestive) heart failure Code(s): I50.9 - Heart failure, unspecified Status: Acute Assessment and Plan: Echocardiogram in October 2021 showed both left-sided and right-sided heart failure with an LVEF of 40 to 45% and diastolic dysfunction. BNP 6350 with pleural effusions and lower extremity swelling on exam. Repeat Echo with unchanged LVEF 45% but with worsening MIRA/RVE and right sided heart failure secondary to pulmonary hypertension with PASP 89 mmHg. Continue lasix 40 mg IV BID. Discussed with Pulmonology Monitor daily weights and strict I/O. Consulted Cardiology for recommendations on GMDT. He is a patient of Dr. Ramirez. BNP 6350 to 3420, -4.5 liters since admission (4) Pulmonary hypertension: Code(s): I27.20 - Pulmonary hypertension, unspecified Status: Chronic Assessment and Plan: Severe, PASP 89 mmHg, worsened since prior echocardiogram. He is intolerant of CPAP. Pulmonology following- plan to optimized management of COPD, Cardiology consulted for GMDT for right and left-sided heart failure ensure appropriate oxygenation at night since he cannot tolerate CPAP. (5) Chronic obstructive pulmonary disease: Code(s): J44.9 - Chronic obstructive pulmonary disease, unspecified Status: Chronic Assessment and Plan: No wheezing on exam. Continue Trelegy and PRN duonebs. <del>Continue</del> <del>scheduled</del> <del>prednisone</del> <del>10</del> <del>mg</del> <del>daily</del> Prednisone was reportedly started by his PCP but he has not been taking this. DC prednisone. (6) Obstructive sleep apnea: Code(s): G47.33 - Obstructive sleep apnea (adult) (pediatric) Status: Chronic Assessment and Plan: The patient has untreated sleep apnea and intolerant to CPAP. Continue supplemental O2. Overnight apnea monitoring. (7) Hypertension: Qualifiers: Hypertension type: primary hypertension Qualified Code(s): I10 - Essential (primary) hypertension Code(s): I10 - Essential (primary) hypertension Status: Chronic Assessment and Plan: Continue lisinopril. Monitor BP closely while on diuretics. (8) Coronary artery disease: Qualifiers: Coronary Disease-Associated Artery/Lesion type: [place] artery [place] vs. transplanted heart: [place] heart Associated angina: without angina Qualified Code(s): I25.10 - Atherosclerotic heart disease of [place] coronary artery without angina pectoris Code(s): I25.10 - Atherosclerotic heart disease of [place] coronary artery without ang
[2022-07-11] MEDS: FUROSEMIDE INJ 40 MG/4 ML VIAL IV PUSH ×2 (08:28→17:26)
[2022-07-11] MEDS: ENOXAPARIN 40 MG/0.4 ML SYRINGE SUB-Q (08:29)
[2022-07-11] MEDS: CITALOPRAM HYDROBROMIDE 20 MG TABLET 40 MG PO (08:29)
[2022-07-11] MEDS: polyethylene glycoL 3350 17 GM POWD.PACK PO (08:29)
[2022-07-11] MEDS: lisinopriL 10 MG TABLET PO (08:29)
[2022-07-11] MEDS: ASPIRIN 81 MG CHEWABLE TABLET PO (08:30)
[2022-07-11] MEDS: ATORVASTATIN 40 MG TABLET 80 MG BY MOUTH (08:30)
[2022-07-11] MEDS: POTASSIUM CHLORIDE 20 MEQ TABLET.ER 40 MEQ PO (08:30)
--- NOTE | 2022-07-11 09:51 | PM.PNPUL ---
Progress Note: A&P Assessment and Plan (1) Pulmonary hypertension: Code(s): I27.20 - Pulmonary hypertension, unspecified Status: Acute Assessment and Plan: From primary physicians note:?An echocardiogram done on May 30, 2020 showed moderate pulmonary hypertension based on right ventricular systolic pressure.? Estimated RVSP is 53mmHg (I do not have these results). 11/09/2021 echo with RVSP 69 (outpatient echo). Current echocardiogram demonstrated LVEF 40-45%, grade 1 diastolic dysfunction, severely enlarged right ventricle with reduced right ventricular systolic function, flattening of the septum in diastole and systole consistent with right ventricular volume and pressure overload. Moderately enlarged left atrium. Right atrial severely enlarged. Moderate tricuspid regurg. Severe pulmonary hypertension with an estimated PASP of 89. 07/10 I believe the etiology of the patient's pulmonary hypertension is multifactorial from left-sided heart disease with fluid overload (type 2), COPD (type 3), untreated obstructive sleep apnea (type 3), and hypoxemic respiratory failure (type 3). Treatment at this time is aimed at optimizing each of these issues. PLAN: For heart disease with fluid overload: will aggressively diurese as tolerated by his cardiac and renal Systems. Optimizing his fluid status is 1 thing that we may be able to fix. My plan would be to aggressively diurese over the next 48 hours and if he still has a large right pleural effusion to consider thoracentesis. Patient's has no evidence of an active COPD exacerbation, bronchitis or pneumonia and will continue his triple inhalers. Patient is intolerant to CPAP and currently we have no affective treatment to manage his obstructive sleep apnea. Continue supplemental oxygen to maintain saturations greater than 90%. Spoke to the patient and explained to him that he has severe lung disease, heart disease, untreated obstructive sleep apnea and hypoxic respiratory failure and that we are attempting to maximize all of these treatments. I spoke to his on speaker phone as well. He is DNR 07/11 Patient tells me that he slept well last night. Patient states his breathing is normal at rest. He did walk in his room yesterday and felt good. Patient tells me today he is breathing better than he has in the last month. Is currently on 5 L nasal cannula with saturation 96%. White blood cell count 9.8, creatinine 1.2, BNP has improved from 6350 to 3420. his weight from admission has improved from 75.3 kilos to 67.3 kilos. Is on Lasix 40 IV b.i.d. with a net diuresis of -4.5 L. overnight oximetry on 5 L nasal cannula demonstrated average saturation 97%, low saturation 80%, time with saturation less than or equal to 88% was 10 minutes or 3% of the monitored time, oxygen desaturation index 0.3. The 10 minutes of saturation less than 88% was all with 1 event towards the end of the test. Plan: agree with as aggressive diuresis as tolerated by his cardiac and renal Systems. He has had a good clinical response to purely diuresis at this point. No evidence of COPD exacerbation, bronchitis or pneumonia and continue trilogy. Continue 5 L nasal cannula at rest and with sleep. I will check a chest x-ray in the morning and will consider thoracentesis if there remains a moderate right pleural effusion. Discussed with Damari Yusuf, will follow with you. (2) Chronic obstructive pulmonary disease: Code(s): J44.9 - Chronic obstructive pulmonary disease, unspecified Status: Chronic Assessment and Plan: 76-year-old man with a history of GOLD grade 2 group B COPD (64 PY, quit 2006, alpha 1 phenotype MM on 04/01/2022, 11/04/2020 FEV1 1.81, 55%, no bronchodilaor response, normal lung volumes and DLCO moderately decreased when adjusted for alveolar volume), 07/06/2022 prescribed but did not start prednisone 10 mg PO Q day, primary central sleep apnea with some obstruction and C
[2022-07-11] MEDS: FLUTICASONE/UMECLIDIN/VILANTER 100-62.5-25 MCG ELLIPTA 1 PUFF INHALATION (10:03)
--- NOTE | 2022-07-11 12:59 | PM.CNCAR ---
Assessment and Plan Assessment and plan (1) Acute on chronic congestive heart failure: Qualifiers: Heart failure type: combined systolic and diastolic Qualified Code(s): I50.43 - Acute on chronic combined systolic (congestive) and diastolic (congestive) heart failure Code(s): I50.9 - Heart failure, unspecified Status: Acute Assessment and Plan: LVEF is mildly reduced. RVSF is reduced as well. Agree with IV diuresis for now. Monitor strict I/Os, daily standing weights if possible. Cautious diuresis as the RV tends to be preload dependent. As for his GDMT, continue with Lisinopril. Can advance the dose if his blood pressure and renal function stay stable. Consider addition of low-dose beta [place], and SGLT inhibitor as well. (2) Acute and chronic respiratory failure with hypoxia: Code(s): J96.21 - Acute and chronic respiratory failure with hypoxia Status: Acute Assessment and Plan: Plan for possible thoracentesis tomorrow per Pulm. (3) Pulmonary hypertension: Code(s): I27.20 - Pulmonary hypertension, unspecified Status: Acute Assessment and Plan: Treatment of underlying etiologies. Will try to optimize the left heart. Needs treatment of his OFE. Recommend outpatient evaluation by a pulmonary hypertension specialist. (4) OFE (obstructive sleep apnea): Code(s): G47.33 - Obstructive sleep apnea (adult) (pediatric) Status: Acute Assessment and Plan: Has not tolerated CPAP in the past, unfortunately OFE likely contributing to his pulmonary hypertension (5) Coronary artery disease: Code(s): I25.10 - Atherosclerotic heart disease of [place] coronary artery without angina pectoris Status: Chronic Assessment and Plan: Stable from a CAD standpoint. Continue ASA and statin. History of Present Illness History of Present Illness Consult date/time: 07/11/22 12:59 Requesting physician: Day Birch APRN Consult reason: congestive heart failure Reason For Visit: Acute on Chronic Hypoxic Resp Failure,Pleural Effu Narrative: We are consulted for congestive heart failure. This is a 76-year-old male who follows with Dr. Ramirez in the clinic. He has a history of COPD, primary central sleep apnea with some obstruction and Richard-Mccurdy breathing, pulmonary hypertension, chronic hypoxemic respiratory failure, COVID pneumonia 04/2020, CAD s/p CABG, mildly reduced LVEF. Patient presented with shortness of breath that has been progressive over last 2 months. Has had lower extremity edema as well. CXR with bilateral infiltrates and effusions. BNP elevated at 6350. Patient was started on IV Lasix for diuresis. Echocardiogram 07/09 showed: LVEF 40-45% (previously 45-50%), severe enlargement of RV and RA, reduced RVSF, flattening of the septum in both diastolic and systole consistent with RV volume and pressure overload, moderate TR, severe pulmonary hypertension with estimated PASP 89mmHg (worsened compared to prior study). Patient states that with IV diuresis, his breathing and edema have improved. He is feeling much better. No chest pain. Review of Systems Review of Systems: All systems reviewed & are unremarkable except as noted in HPI and below (HPI) [facility] Past Medical History Medical History Atherosclerosis of aorta Benign essential hypertension Chronic respiratory failure with hypoxia Coronary artery disease Depression Emphysema lung Erectile dysfunction Generalized anxiety disorder Hyperlipidemia Hypertension Hypogonadism Hypothyroidism Major depressive disorder, single episode, moderate Obstructive sleep apnea Intolerant to CPAP. Raynaud's syndrome without gangrene Sciatica, left side Solitary pulmonary nodule Surgical History Surgical History History of cardiac cath History of three vessel coronary artery bypas
[2022-07-11] MEDS: SENNA/DOCUSATE SODIUM TABLET 1 TAB PO (20:07)
[2022-07-12] VITALS (14 sets, daily range): BP systolic 104–106; BP diastolic 67–81; PULSE 67–88; RESP 16–18; TEMP 36.2–36.9; O2SAT 90–97
[2022-07-12 06:12] LABS: Anion Gap 5 mmol/L (8-16); Blood Urea Nitrogen 29 mg/dL (9-20); Calcium 8.7 mg/dL (8.4-10.2); Carbon Dioxide 34 mmol/L (22-30); Chloride 97 mmol/L (98-107); Estimated CRCL calculation 43 ml/min; Estimated Glomerular Filt Rate 54; Glucose 93 mg/dL (65-110); Potassium 4.2 mmol/L (3.4-5.0); Sodium 136 mmol/L (137-145)
[2022-07-12] MEDS: FLUTICASONE/UMECLIDIN/VILANTER 100-62.5-25 MCG ELLIPTA 1 PUFF INHALATION (07:39)
[2022-07-12] MEDS: ATORVASTATIN 40 MG TABLET 80 MG BY MOUTH (08:21)
[2022-07-12] MEDS: ASPIRIN 81 MG CHEWABLE TABLET PO (08:21)
[2022-07-12] MEDS: POTASSIUM CHLORIDE 20 MEQ TABLET.ER 40 MEQ PO (08:21)
[2022-07-12] MEDS: lisinopriL 10 MG TABLET PO (08:21)
[2022-07-12] MEDS: ENOXAPARIN 40 MG/0.4 ML SYRINGE SUB-Q (08:22)
[2022-07-12] MEDS: CITALOPRAM HYDROBROMIDE 20 MG TABLET 40 MG PO (08:22)
[2022-07-12] MEDS: polyethylene glycoL 3350 17 GM POWD.PACK PO (08:22)
--- NOTE | 2022-07-12 11:11 | PM.PNCARD ---
Progress Note: A&P Assessment and Plan (1) Acute on chronic congestive heart failure: Qualifiers: Heart failure type: combined systolic and diastolic Qualified Code(s): I50.43 - Acute on chronic combined systolic (congestive) and diastolic (congestive) heart failure Code(s): I50.9 - Heart failure, unspecified Status: Acute Assessment and Plan: LVEF is mildly reduced. RVSF is reduced as well. Can be shifted to p.o. furosemide today. Looks euvolemic on exam and CXR showing improving right pleural effusion after aggressive diuresis. Monitor strict I/Os, daily standing weights if possible. As for his GDMT, continue with Lisinopril. Will add jardiance today. Can further optimize his GDMT as an outpatient as BP and renal function allow. Cardiology will sign off. Please do not hesitate to contact us with any further questions. (2) Acute and chronic respiratory failure with hypoxia: Code(s): J96.21 - Acute and chronic respiratory failure with hypoxia Status: Acute Assessment and Plan: Multifactorial. Pulm is following. No plan for thoracentesis today since repeat CXR showed improvement of pleural effusion, now just has small rt. effusion. (3) Pulmonary hypertension: Code(s): I27.20 - Pulmonary hypertension, unspecified Status: Chronic Assessment and Plan: Treatment of underlying etiologies. Will try to optimize the left heart. Needs treatment of his OFE. Recommend outpatient evaluation by a pulmonary hypertension specialist. (4) OFE (obstructive sleep apnea): Code(s): G47.33 - Obstructive sleep apnea (adult) (pediatric) Status: Acute Assessment and Plan: Has not tolerated CPAP in the past, unfortunately OFE likely contributing to his pulmonary hypertension (5) Coronary artery disease: Qualifiers: Associated angina: without angina Coronary Disease-Associated Artery/Lesion type: [place] artery [place] vs. transplanted heart: [place] heart Qualified Code(s): I25.10 - Atherosclerotic heart disease of [place] coronary artery without angina pectoris Code(s): I25.10 - Atherosclerotic heart disease of [place] coronary artery without angina pectoris Status: Chronic Assessment and Plan: Stable from a CAD standpoint. Continue ASA and statin. Subjective Date/time seen: 07/12/22 11:11 Cardiology follow up for CHF He feels much better today. Able to ambulate without dyspnea. Lower extremity swelling has resolved. No chest pain or palpitations. Review of Systems Review of Systems: All systems reviewed & are unremarkable except as noted in HPI and below (HPI) Exam Const: General: comfortable and no acute distress HENMT: Mouth: Yes moist mucous membranes Eyes: General: appearance normal, both eyes and all related structures Sclera: sclerae normal Neck: Neck: supple Resp: Effort & Inspection: normal respiratory effort Auscultation: diminished lung sounds Other: On supplemental oxygen Cardio: Rate: regular rate Rhythm: regular rhythm Heart sounds: Murmur heart sound present systolic Skin: General skin exam: normal color Neuro: Speech: normal speech Extrem: General: normal to inspection Other: No edema Psych: Mental Status: mental status grossly normal Affect: normal affect Objective Data Vital Signs Vital Signs: Vital Signs - 24 hr 07/11/22 12:00 07/11/22 14:00 07/11/22 16:00 Temperature 36.2 C L Pulse Rate 80 73 72 Respiratory Rate 16 Blood Pressure 110/63 Pulse Oximetry 93 Oxygen Delivery Oxygen Flow Rate Fraction of Inspired Oxygen 07/11/22 20:00 07/11/22 22:00 07/12/22 00:00 Temperature 36.3 C L Pulse Rate 73 75 74 Respiratory Rate 20 Blood Pressure 112/70 Pulse Oximetry 98 Oxygen Delivery Oxygen Flow Rate Fraction of Inspired Oxygen 07/12/22 04:00 07/12/22 07:45 07/12/22 06:00 Temperature 36.2 C L Pulse Rate 74 7
--- NOTE | 2022-07-12 14:28 | PCRCNOTE ---
Home O2 eval completed. Patient requires 5 lpm with rest and activity.
--- NOTE | 2022-07-12 16:22 | P.PNIM_ITS ---
Progress Note: A&P Assessment and Plan (1) Acute and chronic respiratory failure with hypoxia: Code(s): J96.21 - Acute and chronic respiratory failure with hypoxia Status: Acute Assessment and Plan: Patient presented to the emergency department with complaints of increasing shortness of breath, gasping for air, and SpO2 in the 70s on 10 L nasal cannula. No wheezing on exam noted to suggest COPD acute exacerbation. * Chest CT scan with moderate right pleural effusion with RLL atelectasis and minimal left pleural effusion and moderate emphysema. * Echocardiogram ordered and shows severe pulmonary hypertension with PASP estimated at 89. * ABG showed hypoxemia paO2 53 on fiO2 40%. * Continue supplemental O2 and wean as tolerated to keep spO2>90% * Pulmonology consulted and appreciate recommendations- continue diuresis. * Repeat chest x-ray improved. (2) Bilateral pleural effusion: Code(s): J90 - Pleural effusion, not elsewhere classified Status: Acute Assessment and Plan: Noted on imaging. Secondary to acute on chronic CHF. continue judicious di uresis. Chest x-ray tomorrow and possible thoracentesis. (3) Acute on chronic congestive heart failure: Qualifiers: Heart failure type: combined systolic and diastolic Qualified Code(s): I50.43 - Acute on chronic combined systolic (congestive) and diastolic (congestive) heart failure Code(s): I50.9 - Heart failure, unspecified Status: Acute Assessment and Plan: Echocardiogram in October 2021 showed both left-sided and right-sided heart failure with an LVEF of 40 to 45% and diastolic dysfunction. * BNP 6350 with pleural effusions and lower extremity swelling on exam. * Repeat Echo with unchanged LVEF 45% but with worsening MIRA/RVE and right sided heart failure secondary to pulmonary hypertension with PASP 89 mmHg. * Continue lasix 40 mg IV BID. Discussed with Pulmonology * Monitor daily weights and strict I/O. * Consulted Cardiology for recommendations on GMDT- Jardiance added. * BNP 6350 to 3420, -4.5 liters since admission * 07/12/22 Transition to oral lasix 40 mg PO daily. Cardiology would like to observe on oral diuretics for 24 hours. (4) Pulmonary hypertension: Code(s): I27.20 - Pulmonary hypertension, unspecified Status: Chronic Assessment and Plan: Severe, PASP 89 mmHg, worsened since prior echocardiogram. He is intolerant of CPAP. * Pulmonology following- plan to optimized management of COPD, * Cardiology consulted for GMDT for right and left-sided heart failure * ensure appropriate oxygenation at night since he cannot tolerate CPAP. * Home O2 evaluation. (5) Chronic obstructive pulmonary disease: Qualifiers: COPD type: emphysema Emphysema type: unspecified Qualified Code(s): J43.9 - Emphysema, unspecified Code(s): J44.9 - Chronic obstructive pulmonary disease, unspecified Status: Chronic Assessment and Plan: No wheezing on exam. Continue Trelegy and PRN duonebs. -[id number]- -[id number]- -[id number]- -1-0- -m-g- -d-a-i-l-y- Prednisone was reportedly started by his PCP but he has not been taking this. DC prednisone. (6) Obstructive sleep apnea: Code(s): G47.33 - Obstructive sleep apnea (adult) (pediatric) Status: Chronic Assessment and Plan: The patient has untreated sleep apnea and intolerant to CPAP. Continue supplemental O2. Overnight apnea monitoring. (7) Hypertension: Qualifiers: Hypertension type: primary hypertension Qualified Code(s): I10 - Essential (primary) hyper
--- NOTE | 2022-07-12 16:22 | PM.IMPN ---
Progress Note: A&P Assessment and Plan (1) Acute and chronic respiratory failure with hypoxia: Code(s): J96.21 - Acute and chronic respiratory failure with hypoxia Status: Acute Assessment and Plan: Patient presented to the emergency department with complaints of increasing shortness of breath, gasping for air, and SpO2 in the 70s on 10 L nasal cannula. No wheezing on exam noted to suggest COPD acute exacerbation. Chest CT scan with moderate right pleural effusion with RLL atelectasis and minimal left pleural effusion and moderate emphysema. Echocardiogram ordered and shows severe pulmonary hypertension with PASP estimated at 89. ABG showed hypoxemia paO2 53 on fiO2 40%. Continue supplemental O2 and wean as tolerated to keep spO2>90% Pulmonology consulted and appreciate recommendations- continue diuresis. Repeat chest x-ray improved. (2) Bilateral pleural effusion: Code(s): J90 - Pleural effusion, not elsewhere classified Status: Acute Assessment and Plan: Noted on imaging. Secondary to acute on chronic CHF. continue judicious diuresis. Chest x-ray tomorrow and possible thoracentesis. (3) Acute on chronic congestive heart failure: Qualifiers: Heart failure type: combined systolic and diastolic Qualified Code(s): I50.43 - Acute on chronic combined systolic (congestive) and diastolic (congestive) heart failure Code(s): I50.9 - Heart failure, unspecified Status: Acute Assessment and Plan: Echocardiogram in October 2021 showed both left-sided and right-sided heart failure with an LVEF of 40 to 45% and diastolic dysfunction. BNP 6350 with pleural effusions and lower extremity swelling on exam. Repeat Echo with unchanged LVEF 45% but with worsening MIRA/RVE and right sided heart failure secondary to pulmonary hypertension with PASP 89 mmHg. Continue lasix 40 mg IV BID. Discussed with Pulmonology Monitor daily weights and strict I/O. Consulted Cardiology for recommendations on GMDT- Jardiance added. BNP 6350 to 3420, -4.5 liters since admission 07/12/22 Transition to oral lasix 40 mg PO daily. Cardiology would like to observe on oral diuretics for 24 hours. (4) Pulmonary hypertension: Code(s): I27.20 - Pulmonary hypertension, unspecified Status: Chronic Assessment and Plan: Severe, PASP 89 mmHg, worsened since prior echocardiogram. He is intolerant of CPAP. Pulmonology following- plan to optimized management of COPD, Cardiology consulted for GMDT for right and left-sided heart failure ensure appropriate oxygenation at night since he cannot tolerate CPAP. Home O2 evaluation. (5) Chronic obstructive pulmonary disease: Qualifiers: COPD type: emphysema Emphysema type: unspecified Qualified Code(s): J43.9 - Emphysema, unspecified Code(s): J44.9 - Chronic obstructive pulmonary disease, unspecified Status: Chronic Assessment and Plan: No wheezing on exam. Continue Trelegy and PRN duonebs. <del>Continue</del> <del>scheduled</del> <del>prednisone</del> <del>10</del> <del>mg</del> <del>daily</del> Prednisone was reportedly started by his PCP but he has not been taking this. DC prednisone. (6) Obstructive sleep apnea: Code(s): G47.33 - Obstructive sleep apnea (adult) (pediatric) Status: Chronic Assessment and Plan: The patient has untreated sleep apnea and intolerant to CPAP. Continue supplemental O2. Overnight apnea monitoring. (7) Hypertension: Qualifiers: Hypertension type: primary hypertension Qualified Code(s): I10 - Essential (primary) hypertension Code(s): I10 - Essential (primary) hypertension Status: Chronic Assessment and Plan: Continue lisinopril. Monitor BP closely while on diuretics. (8) Coronary artery disease: Qualifiers: Coronary Disease-Associated Artery/Lesion type: [place] artery [place] vs. transplanted heart: [place]
[2022-07-12] MEDS: FUROSEMIDE 40 MG TABLET PO (17:28)
--- NOTE | 2022-07-12 19:55 | PM.PNPUL ---
Progress Note: A&P Assessment and Plan (1) Pulmonary hypertension: Code(s): I27.20 - Pulmonary hypertension, unspecified Status: Chronic Assessment and Plan: From primary physicians note:?An echocardiogram done on May 30, 2020 showed moderate pulmonary hypertension based on right ventricular systolic pressure.? Estimated RVSP is 53mmHg (I do not have these results). 11/09/2021 echo with RVSP 69 (outpatient echo). Current echocardiogram demonstrated LVEF 40-45%, grade 1 diastolic dysfunction, severely enlarged right ventricle with reduced right ventricular systolic function, flattening of the septum in diastole and systole consistent with right ventricular volume and pressure overload. Moderately enlarged left atrium. Right atrial severely enlarged. Moderate tricuspid regurg. Severe pulmonary hypertension with an estimated PASP of 89. 07/10 I believe the etiology of the patient's pulmonary hypertension is multifactorial from left-sided heart disease with fluid overload (type 2), COPD (type 3), untreated obstructive sleep apnea (type 3), and hypoxemic respiratory failure (type 3). Treatment at this time is aimed at optimizing each of these issues. PLAN: For heart disease with fluid overload: will aggressively diurese as tolerated by his cardiac and renal Systems. Optimizing his fluid status is 1 thing that we may be able to fix. My plan would be to aggressively diurese over the next 48 hours and if he still has a large right pleural effusion to consider thoracentesis. Patient's has no evidence of an active COPD exacerbation, bronchitis or pneumonia and will continue his triple inhalers. Patient is intolerant to CPAP and currently we have no affective treatment to manage his obstructive sleep apnea. Continue supplemental oxygen to maintain saturations greater than 90%. Spoke to the patient and explained to him that he has severe lung disease, heart disease, untreated obstructive sleep apnea and hypoxic respiratory failure and that we are attempting to maximize all of these treatments. I spoke to his on speaker phone as well. He is DNR 07/11 Patient tells me that he slept well last night. Patient states his breathing is normal at rest. He did walk in his room yesterday and felt good. Patient tells me today he is breathing better than he has in the last month. Is currently on 5 L nasal cannula with saturation 96%. White blood cell count 9.8, creatinine 1.2, BNP has improved from 6350 to 3420. his weight from admission has improved from 75.3 kilos to 67.3 kilos. Is on Lasix 40 IV b.i.d. with a net diuresis of -4.5 L. overnight oximetry on 5 L nasal cannula demonstrated average saturation 97%, low saturation 80%, time with saturation less than or equal to 88% was 10 minutes or 3% of the monitored time, oxygen desaturation index 0.3. The 10 minutes of saturation less than 88% was all with 1 event towards the end of the test. Plan: He is better after aggressive diuresis as tolerated by his cardiac and renal systems. He has had a good clinical response to purely diuresis at this point. No evidence of COPD exacerbation, bronchitis or pneumonia and continue trilogy. Continue 5 L nasal cannula at rest and with sleep. No thoracentesis required as pleural effusion improved. (2) Chronic obstructive pulmonary disease: Qualifiers: COPD type: emphysema Emphysema type: unspecified Qualified Code(s): J43.9 - Emphysema, unspecified Code(s): J44.9 - Chronic obstructive pulmonary disease, unspecified Status: Chronic Assessment and Plan: 76-year-old man with a history of GOLD grade 2 group B COPD (64 PY, quit 2006, alpha 1 phenotype MM on 04/01/2022, 11/04/2020 FEV1 1.81, 55%, no bronchodilaor response, normal lung volumes and DLCO moderately decreased when adjusted for alveolar volume), 07/06/2022 prescribed but did not start predn
[2022-07-12] MEDS: SENNA/DOCUSATE SODIUM TABLET 1 TAB PO (20:41)
[2022-07-13] VITALS (7 sets, daily range): BP systolic 99–103; BP diastolic 59–81; PULSE 63–80; RESP 17–18; TEMP 36.6–36.9; O2SAT 95–97
[2022-07-13 07:11] LABS: Anion Gap 6 mmol/L (8-16); Blood Urea Nitrogen 27 mg/dL (9-20); Calcium 8.9 mg/dL (8.4-10.2); Carbon Dioxide 34 mmol/L (22-30); Chloride 97 mmol/L (98-107); Estimated CRCL calculation 42 ml/min; Estimated Glomerular Filt Rate 54; Glucose 90 mg/dL (65-110); Potassium 4.8 mmol/L (3.4-5.0); Sodium 137 mmol/L (137-145)
[2022-07-13 07:23] LABS: Hematocrit 53.3 % (42.0-52.0); Hemoglobin 17.2 g/dL (14.0-18.0); Mean Corpuscular HGB Conc 32.3 g/dl (32-36); Mean Corpuscular Hemoglobin 27.4 pg (26-34); Mean Platelet Volume 10.1 fl (7.4-10.4); Platelet Count Result 250 k/mm3 (150-375); Red Blood Count 6.27 M/mm3 (4.6-6.20); White Blood Count 7.8 K/mm3 (4.5-10.0)
[2022-07-13] MEDS: ASPIRIN 81 MG CHEWABLE TABLET PO (08:39)
[2022-07-13] MEDS: ATORVASTATIN 40 MG TABLET 80 MG BY MOUTH (08:39)
[2022-07-13] MEDS: CITALOPRAM HYDROBROMIDE 20 MG TABLET 40 MG PO (08:39)
[2022-07-13] MEDS: EMPAGLIFLOZIN 10 MG TABLET PO (08:39)
[2022-07-13] MEDS: POTASSIUM CHLORIDE 20 MEQ TABLET.ER 40 MEQ PO (08:39)
[2022-07-13] MEDS: polyethylene glycoL 3350 17 GM POWD.PACK PO (08:40)
[2022-07-13] MEDS: lisinopriL 10 MG TABLET PO (08:40)
[2022-07-13] MEDS: ENOXAPARIN 40 MG/0.4 ML SYRINGE SUB-Q (08:40)
[2022-07-13] MEDS: FUROSEMIDE 40 MG TABLET PO (08:40)
[2022-07-13] MEDS: FLUTICASONE/UMECLIDIN/VILANTER 100-62.5-25 MCG ELLIPTA 1 PUFF INHALATION (09:07)
--- NOTE | 2022-07-13 13:10 | P.PNPL_ITS ---
Progress Note: A&P Assessment and Plan (1) Pulmonary hypertension: Code(s): I27.20 - Pulmonary hypertension, unspecified Status: Chronic Assessment and Plan: From primary physicians note:?An echocardiogram done on May 30, 2020 showed moderate pulmonary hypertension based on right ventricular systolic pressure.? Estimated RVSP is 53mmHg (I do not have these results). 11/09/2021 echo with RVSP 69 (outpatient echo). Current echocardiogram demonstrated LVEF 40-45%, grade 1 diastolic dysfunction, severely enlarged right ventricle with reduced right ventricular systolic function, flattening of the septum in diastole and systole consistent with right ventricular volume and pressure overload. Moderately enlarged left atrium. Right atrial severely enlarged. Moderate tricuspid regurg. Severe pulmonary hypertension with an estimated PASP of 89. 07/10 I believe the etiology of the patient's pulmonary hypertension is multifactorial from left-sided heart disease with fluid overload (type 2), COPD (type 3), untreated obstructive sleep apnea (type 3), and hypoxemic respiratory failure (type 3). Treatment at this time is aimed at optimizing each of these issues. PLAN: For heart disease with fluid overload: will aggressively diurese as tolerated by his cardiac and renal Systems. Optimizing his fluid status is 1 thing that we may be able to fix. My plan would be to aggressively diurese over the next 48 hours and if he still has a large right pleural effusion to consider thoracentesis. Patient's has no evidence of an active COPD exacerbation, bronchitis or pneumonia and will continue his triple inhalers. Patient is intolerant to CPAP and currently we have no affective treatment to manage his obstructive sleep apnea. Continue supplemental oxygen to maintain saturations greater than 90%. Spoke to the patient and explained to him that he has severe lung disease, heart disease, untreated obstructive sleep apnea and hypoxic respiratory failure and that we are attempting to maximize all of these treatments. I spoke to his on speaker phone as well. He is DNR 07/11 Patient tells me that he slept well last night. Patient states his breathing is normal at rest. He did walk in his room yesterday and felt good. Patient tells me today he is breathing better than he has in the last month. Is currently on 5 L nasal cannula with saturation 96%. White blood cell count 9.8, creatinine 1.2, BNP has improved from 6350 to 3420. his weight from admission has improved from 75.3 kilos to 67.3 kilos. Is on Lasix 40 IV b.i.d. with a net diuresis of -4.5 L. overnight oximetry on 5 L nasal cannula demonstrated average saturation 97%, low saturation 80%, time with saturation less than or equal to 88% was 10 minutes or 3% of the monitored time, oxygen desaturation index 0.3. The 10 minutes of saturation less than 88% was all with 1 event towards the end of the test. Plan: He is better after aggressive diuresis as tolerated by his cardiac and renal systems. He has had a good clinical response to purely diuresis at this point. No evidence of COPD exacerbation, bronchitis or pneumonia and continue Trelegy. Continue 5 L nasal cannula at rest and with sleep. No thoracentesis required as pleural effusion improved. (2) Chronic obstructive pulmonary disease: Qualifiers: COPD type: emphysema Emphysema type: unspecified Qualified Code(s): J43.9 - Emphysema, unspecified Code(s): J44.9 - Chronic obstructive pulmonary disease, unspecified Status: Chronic Assessment and Plan: 76-year-old man with a history of GOLD grade 2 group B CO
--- NOTE | 2022-07-13 14:37 | PM.DS ---
DS: Admitting Diagnosis Discharge Date 07/13/2022 Admitting Diagnosis Acute and chronic respiratory failure with hypoxia Acute on chronic congestive heart failureChronic obstructive pulmonary disease Obstructive sleep apnea Essential (primary) hypertension DS: Discharge Diagnosis Discharge Diagnosis (1) Acute and chronic respiratory failure with hypoxia: Code(s): J96.21 - Acute and chronic respiratory failure with hypoxia Status: Acute Assessment and Plan: Patient presented to the emergency department with complaints of increasing shortness of breath, gasping for air, and SpO2 in the 70s on 10 L nasal cannula. No wheezing on exam noted to suggest COPD acute exacerbation. Chest CT scan with moderate right pleural effusion with RLL atelectasis and minimal left pleural effusion and moderate emphysema. Echocardiogram ordered and shows severe pulmonary hypertension with PASP estimated at 89. ABG showed hypoxemia paO2 53 on fiO2 40%. Continue supplemental O2 and wean as tolerated to keep spO2>90% Pulmonology consulted and appreciate recommendations- continue diuresis. Repeat chest x-ray improved pleural effusions. (2) Bilateral pleural effusion: Code(s): J90 - Pleural effusion, not elsewhere classified Status: Acute Assessment and Plan: Noted on imaging. Secondary to acute on chronic CHF. Given judicious diuresis. thoracentesis considered, however, repeat imaging showed improvement in effusions with diuresis. (3) Acute on chronic congestive heart failure: Qualifiers: Heart failure type: combined systolic and diastolic Qualified Code(s): I50.43 - Acute on chronic combined systolic (congestive) and diastolic (congestive) heart failure Code(s): I50.9 - Heart failure, unspecified Status: Acute Assessment and Plan: Acute on chronic combined CHF exacerbation. Echocardiogram in October 2021 showed both left-sided and right-sided heart failure with an LVEF of 40 to 45% and diastolic dysfunction. BNP 6350 with pleural effusions and lower extremity swelling on exam. Repeat Echo with unchanged LVEF 45% but with worsening MIRA/RVE and right sided heart failure secondary to pulmonary hypertension with PASP 89 mmHg. Treated with lasix 40 mg IV BID. Discussed with Pulmonology. Monitor daily weights and strict I/O. -4.5 liters since admission. Consulted Cardiology for recommendations on GMDT- Jardiance added. BNP 6350 to 3420, 07/12/22 Transitioned to oral lasix 40 mg PO daily and monitored on oral diuretic x 24 hours. (4) Pulmonary hypertension: Code(s): I27.20 - Pulmonary hypertension, unspecified Status: Chronic Assessment and Plan: Severe, PASP 89 mmHg, worsened since prior echocardiogram. He is intolerant of CPAP. Pulmonology following- plan to optimized management of COPD. Apnea link monitor overnight on 5L O2 NC showed minimal desaturation. Home O2 evaluation stable on 5L O2 ambulating and rest. (5) Chronic obstructive pulmonary disease: Qualifiers: COPD type: emphysema Emphysema type: unspecified Qualified Code(s): J43.9 - Emphysema, unspecified Code(s): J44.9 - Chronic obstructive pulmonary disease, unspecified Status: Chronic Assessment and Plan: No wheezing on exam. Continue Trelegy and PRN duonebs. Prednisone was reportedly started by his PCP but he has not been taking this. DC'd prednisone. (6) Obstructive sleep apnea: Code(s): G47.33 - Obstructive sleep apnea (adult) (pediatric) Status: Chronic Assessment and Plan: The patient has untreated sleep apnea and intolerant to CPAP. (7) Hypertension: Qualifiers: Hypertension type: primary hypertension Qualified Code(s): I10 - Essential (primary) hypertension Code(s): I10 - Essential (primary) hypertension Status: Chronic Assessment and Plan: Continue lisinopril. Monitor BP closely while
--- NOTE | 2022-07-13 15:54 | PC.NURSE ---
Pt was discharged before prescription for ipratropium/albuterol nebulizer was sent to the floor. I called [facility] & spoke with the pharmacist who said they don't have the combo med, but can substitute the individual medications in the same doses & frequency for the prescribed number of days of treatment. The paper script to be placed in the shred bin.
== END 2022-07-13 15:04 | disposition home or self-care (01) | DRG 291 ==
LOC: ANHED 13:13 → ANH2MED 15:28
PROVIDERS: Physician Assistant; Admitting Provider Chiropractor; Emergency Provider Emergency Medicine; PCP Family Medicine; Visit Provider Nurse Practitioner Family
DX: I11.0 Hypertensive heart disease with heart failure (principal); I50.43 Acute on chronic combined systolic (congestive) and diastolic (congestive) heart failure; J96.21 Acute and chronic respiratory failure with hypoxia; J90 Pleural effusion, not elsewhere classified; I27.20 Pulmonary hypertension, unspecified; G47.33 Obstructive sleep apnea (adult) (pediatric); I25.10 Atherosclerotic heart disease of native coronary artery without angina pectoris; J43.9 Emphysema, unspecified; Z66 Do not resuscitate; F41.1 Generalized anxiety disorder; Z20.822 Contact with and (suspected) exposure to COVID-19; Z99.81 Dependence on supplemental oxygen; Z95.1 Presence of aortocoronary bypass graft
CPT/HCPCS: 36415; 36600; 71045; 71046; 71275; 80048; 80053; 82805; 83735; 83880; 84439; 84443; 84480; 84484; 85025; 85027; 85380; 85610; 85730; 93005; 93306; 93970; 94618; 94640; 94762; 96372; 96375; 97161; 97165; 99285; A9270; G0378; J1650; J1940; J3480; J7040; J7512; Q9967; U0003; U0005

== ENCOUNTER → 2023-02-09 10:05 | Outpatient (CLI) | payer MEDICARE, SELFPAY ==
--- NOTE | ~2023-02-09 | XR_ITS ---
XR chest 2V 02/09/2023 10:45 Indication: Pneumonia. Procedure: 2 view chest Comparison: Comparison to multiple prior studies sequentially, with oldest reviewed study dated 04/02. Findings: Status post median sternotomy for CABG. Stable cardiomediastinal silhouette. Densely calcif ied granuloma right lung base. There diffuse bilateral interstitial infiltrates with peribronchial th ickening. No significant effusion or pneumothorax. Impression: 1: Diffuse bilateral interstitial infiltrates which may represent edema or pneumonia. Reviewed, dictated and finalized at location B. Impression: 1: Diffuse bilateral interstitial infiltrates which may represent edema or pneu monia.
== END ==
PROVIDERS: PCP Family Medicine; Visit Provider Physician Assistant
DX: J18.9 Pneumonia, unspecified organism (principal)
CPT/HCPCS: 71046

== ENCOUNTER → 2023-02-18 15:00 | Outpatient (CLI) | payer MEDICARE, SELFPAY ==
--- NOTE | ~2023-02-18 | MR_ITS ---
MRI of the lumbar spine Clinical History: Back pain Technique: Axial T2-weighted images, and sagittal T1-weighted, T2-weighted, and and T2 fat-sat images were acquired. Findings: No acute fracture seen. There is mild chronic loss of height of L5. There is 2-3 mm retroli sthesis of L2 over L3. No suspicious bone marrow signal abnormality seen. At L1-L2, there is severe degenerative disc narrowing. There is mild disc bulge with moderate facet a rthropathy, and mild central canal stenosis. There is moderate to severe bilateral neural foraminal n arrowing. At L2-L3, there is moderate degenerative disc narrowing. There is disc bulge and severe facet arthrop athy, with mild to moderate central canal stenosis. There is severe right neural foraminal narrowing, and mild left neural foraminal narrowing. At L3-L4, there is diffuse disc bulge with severe facet arthropathy, resulting in moderate to severe spinal canal stenosis/thecal sac compression. There is severe bilateral neural foraminal narrowing. At L4-L5, there is diffuse disc bulge with severe facet arthropathy, resulting in severe spinal canal stenosis/thecal sac compression. There is severe left neural foraminal narrowing, and moderate right neural foraminal narrowing. At L5-S1, there is disc bulge at the left paracentral region with mild to moderate facet arthropathy. There is severe bilateral neural foraminal compromise. No joseph central canal stenosis. Paravertebral soft tissues are unremarkable. Impression: Severe degenerative spondylosis throughout the lumbar spine, with multilevel advanced spinal canal st enosis and multilevel severe neural foraminal narrowing. Please see details above. Chronic loss of height of L5. 2-3 mm retrolisthesis of L2 over L3. Reviewed, dictated and finalized at [facility]. Impression: Severe degenerative spondylosis throughout the lumbar spine, with multilevel ad vanced spinal canal stenosis and multilevel severe neural foraminal narrowing. Please see details above. Chronic loss of height of L5. 2-3 mm retrolisthesis of L2 over L3.
== END ==
PROVIDERS: PCP Family Medicine; Visit Provider Family Medicine
DX: M43.06 Spondylolysis, lumbar region (principal); M53.87 Other specified dorsopathies, lumbosacral region; R29.890 Loss of height
CPT/HCPCS: 72148

== ENCOUNTER 2023-05-28 13:46 | Observation (INO) | payer MEDICARE, SELFPAY ==
[2023-05-28] VITALS (24 sets, daily range): BP systolic 109–139; BP diastolic 55–81; PULSE 59–94; RESP 16–30; TEMP 36.6–37.1; O2SAT 90–100
--- NOTE | ~2023-05-28 | XR_ITS ---
EXAMINATION: XR chest 1V portable Exam Date/Time: 05/28/2023 15:10 [employer]USSIAN LANGUAGE IN[employer]CTOR HISTORY: cough, sob Comparison: 02/09/2023. RESULT: Lines, tubes, and devices: Intact sternotomy wires. Lungs and pleura: Patchy and streaky bilateral lower lung opacities. Mild right costophrenic angle b lunting. Granulomatous calcification. Cardiomediastinal silhouette: Stable. Other: No acute osseous or upper abdominal finding. IMPRESSION: Subsegmental bilateral lower lung atelectasis/pneumonia. Possible small right pleural effusion. Reviewed, dictated and finalized at location K. IAN LANGUAGE INSTRUCTOR IMPRESSION: Subsegmental bilateral lower lung atelectasis/pneumonia. Possible small right p leural effusion.
--- NOTE | 2023-05-28 15:01 | ECG_ITS ---
Measurements Intervals [place] Rate: 63 P: 59 AK: 137 QRS: 115 QRSD: 113 T: 51 QT: 443 QTc: 457 Interpretive Statements SINUS RHYTHM RIGHT AXIS DEVIATION INTRAVENTRICULAR CONDUCTION DELAY BORDERLINE R WAVE PROGRESSION, ANTERIOR LEADS BORDERLINE ST-T WAVE ABNORMALITY- INFERIOR LEADS BASELINE ARTIFACT- I, II, III, AVR, AVL, AVF, V5-V6 BORDERLINE ECG COMPARED TO ECG 07/08/2022 09:58:42 NO SIGNIFICANT CHANGES Electronically Signed On 05-28-2023 16:17:18 MOTOR OPERATOR by Nils Valle D.O.
[2023-05-28 15:35] LABS: Basophils Percent Auto 0.3 % (0.2-1.2); Eosinophils Absolute Auto 0.1 K/mm3 (0-0.3); Eosinophils Percent Auto 0.9 % (0-4.4); Hematocrit 44.8 % (42.0-52.0); Hemoglobin 13.2 g/dL (14.0-18.0); Immature Granulocyte Absolute 0.18 K/mm3 (0.00-0.031); Immature Granulocyte Percent A 1.3 % (0-0.5); Lymphocytes Percent Auto 13.7 % (18.3-44.2); Mean Corpuscular HGB Conc 29.5 g/dl (32-36); Mean Corpuscular Hemoglobin 27.7 pg (26-34); Mean Corpuscular Volume 93.9 fl (80-100); Mean Platelet Volume 9.8 fl (7.4-10.4); Monocytes Absolute Auto 0.7 K/mm3 (0.1-0.6); Monocytes Percent Auto 5.1 % (2.6-8.5); Neutrophils Absolute Auto 10.9 K/mm3 (1.3-6.7); Neutrophils Percent Auto 78.7 % (45.5-73.1); Platelet Count Result 201 k/mm3 (150-375); Red Blood Count 4.77 M/mm3 (4.6-6.20); Red Cell Distribution Width 15.9 % (11.5-14.5); White Blood Count 13.9 K/mm3 (4.5-10.0)
[2023-05-28 15:45] LABS: INR 0.9; Prothrombin Time 12.9 Seconds (11.1-14.7)
[2023-05-28 15:49] LABS: Alanine Aminotransferase 33 U/L (6-50); Albumin Level 3.7 g/dL (3.5-5.1); Alkaline Phosphatase 84 U/L (38-126); Anion Gap 8 mmol/L (8-16); Aspartate Amino Transferase 34 U/L (17-59); Bilirubin,Total 0.8 mg/dL (0.2-1.3); Blood Urea Nitrogen 26 mg/dL (9-20); Calcium 8.9 mg/dL (8.4-10.2); Carbon Dioxide 27 mmol/L (22-30); Chloride 109 mmol/L (98-107); Estimated CRCL calculation 50 ml/min; Estimated Glomerular Filt Rate 59; Glucose 104 mg/dL (65-110); Lipase 236 U/L (23-300); Magnesium 2.3 mg/dL (1.6-2.3); Potassium 3.4 mmol/L (3.4-5.0); Sodium 144 mmol/L (137-145)
[2023-05-28 15:50] LABS: Lactic Acid Reflex 1.7 mmol/L (0.7-2.0)
--- NOTE | 2023-05-28 15:51 | ED.SOB ---
HPI - SOB/Dyspnea General Chief Complaint: Shortness of Breath/Dyspnea Stated Complaint: trouble breathing Time Seen by Provider: 05/28/23 14:42 History of Present Illness HPI Narrative: Patient is a 77-year-old male with history of COPD on 4-5 L baseline, CAD status post CABG, hypertension, hyperlipidemia presenting with shortness of breath. Patient's helps with the history. States that he has been increasingly short of breath over the last 1-2 weeks. States that he has gained approximately 10 lb, they were concerned that it is fluid overload. He complains of bilateral leg swelling. He has been compliant with his Lasix. States that he feels fine at rest but if he exerts himself even minimally, he is extremely dyspneic. No fevers or cough. No chest, back, abdominal pain. Related Data Home Medications Medication Instructions Recorded Confirmed aspirin 81 mg chewable tablet 81 mg PO DAILY 04/22/20 05/28/23 atorvastatin 80 mg tablet 80 mg DAILY 04/22/20 05/28/23 lisinopril 20 mg tablet 10 mg PO DAILY 06/28/22 05/28/23 sildenafil (pulm.hypertension) 20 20 mg PO TID 11/08/22 05/28/23 mg tablet macitentan 10 mg tablet (Opsumit) 10 mg PO DAILY 01/14/23 05/28/23 Allergies Allergy/AdvReac Type Severity Reaction Status Date / Time crab Allergy Intermediate Hives Verified 02/22/23 09:29 tiotropium Allergy Mild Dizziness Verified 02/22/23 09:29 [From [facility] with HandiHaler] Review of Systems Review of Systems: All systems reviewed & are unremarkable except as noted in HPI and below PMFSH Past Medical History Medical History Atherosclerosis of aorta Benign essential hypertension Chronic respiratory failure with hypoxia, on home oxygen therapy Combined systolic and diastolic cardiac dysfunction Coronary artery disease Depression Emphysema lung Erectile dysfunction Generalized anxiety disorder Hyperlipidemia Hypertension Hypogonadism Hypothyroidism Major depressive disorder, single episode, moderate Obstructive sleep apnea Intolerant to CPAP. Raynaud's syndrome without gangrene Right ventricular systolic dysfunction Severe pulmonary hypertension Solitary pulmonary nodule Surgical History Surgical History History of cardiac cath History of three vessel coronary artery bypass Family History Family History Father Hypertension Alcoholism Social History Social History Social History: Surrogate medical decision maker: Constantine Ko Jr., son. Code status: Full code. Smoking packs per day: 2 Smoking cigarettes per day: 40.0 Years smoked: 35 Smoking pack-years: 70.00 Smoking status: Former smoker Tobacco type: cigarettes Second hand tobacco smoke exposure: No Smoking end date: 05/02/06 Alcohol intake: current Drinks per week: 1 Substance use: never Substance use type: does not use Do You Feel Safe in your Home?: Yes Lack of Transportation: No Lack of Food: Never True Current Housing: I Have Housing Concerned About Future Housing: No Difficulty Paying Gas/Electric Bills: No Difficulty Paying for Meds: No Currently Unemployed: No Education: Associate Degree Difficulty w/ Childcare or Family Care: No Living arrangements: with family Additional living arrangements comments: Lives with spouse in [place]. Occupation/Education: retired Spiritual care concerns: No Exam Narrative: GENERAL: Nontoxic, no acute distress, very pleasant cooperative HEAD: Normocephalic, atraumatic. EYES: PERRLA and EOMI. ENT: Mucous membranes moist. NECK: Supple. CHEST: Coarse sounds in the bases, no respiratory distress, saturating well on 5 L nasal cannula HEART: Regular rate and rhythm ABDOMEN: Soft, nontender, nondistende
[2023-05-28 16:01] LABS: NT Pro B Type Natriuretic Pept 553 pg/mL (19.9-100); Troponin I 0.026 ng/mL (0.000-0.034)
[2023-05-28] MEDS: FUROSEMIDE INJ 40 MG/4 ML VIAL IV PUSH (16:26)
[2023-05-28] MEDS: methylPREDNISolone SOD SUCC 125 MG VIAL IV PUSH (16:39)
[2023-05-28] MEDS: cefTRIAXone 2 GM/NS 100 ML 2 GM/100 ML BAG IVPB (16:39)
[2023-05-28 16:41] LABS: Appearance Urine Clear (Clear); Bilirubin Urine Negative (Negative); Blood Urine Negative (Negative); Color Urine Yellow (Yellow); Glucose Urine UA Negative (Negative); Ketones Urine Trace mg/dL (Negative); Leukocyte Esterase Ur Negative LEU/UL (Negative); Nitrate Urine Negative (Negative); Protein Urine Negative (Negative); Specific Grav Ur 1.028 (1.001-1.035)
[2023-05-28 16:58] LABS: Add Urine Microscopic? NO
[2023-05-28] MEDS: IPRATROPIUM BR 0.02% INH SOLN 0.5 MG/2.5 ML VIAL INHALATION (17:00)
[2023-05-28] MEDS: ALBUTEROL SULFATE NEB 2.5 MG/3 ML INH 10 MG INHALATION (17:00)
[2023-05-28] MEDS: AZITHROMYCIN 500 MG/NS 250 ML 500 MG/250 ML BAG 250 MG IVPB (17:17)
--- NOTE | 2023-05-28 17:33 | PM.IMHP ---
H&P: HPI History of Present Illness Date/Time: 05/28/23 19:00 Chief Complaint: Shortness of breath. Narrative: This is a very pleasant 77-year-old male with severe pulmonary hypertension, reduced right ventricular function, combined left ventricular systolic and diastolic congestive heart failure, chronic respiratory failure on 4 to 5 L nasal cannula at baseline, chronic obstructive pulmonary disease with severe emphysema, coronary artery disease status post 3 vessel bypass, hypertension, and hyperlipidemia who presented to the emergency department for evaluation of shortness of breath. The patient provides the following history. He endorses increasing dyspnea on lesser and lesser exertion over the past 1 to 2 weeks. His legs are swelling and he has gained approximately 10 lb. He has a prescription for furosemide 20 mg daily as needed for lower extremity swelling and he has been taking that without much benefit. He denies fever, chills, sweats, chest and pleuritic pain, orthopnea, cough, nausea, and vomiting. He was afebrile on arrival to the ED with stable vital signs. He is currently at his baseline oxygen requirements. Workup in the ED was significant for a WBC count of 13.9 and chest x-ray consistent with atelectasis versus pneumonia possible small right pleural effusion. Interventions in the ED include a nebulizer treatment, 125 mg IV Solu-Medrol, 40 mg IV furosemide, and a dose of azithromycin and ceftriaxone for possible underlying pneumonia. He is being admitted in this setting for further treatment and evaluation. At the time my evaluation he reports that his swelling has improved in his legs and he is feeling just fine as long his he is lying in bed. Review of Systems Review of Systems: 12 systems were reviewed and are negative except for as per HPI. [facility] Past Medical History Medical History Atherosclerosis of aorta Benign essential hypertension Chronic respiratory failure with hypoxia, on home oxygen therapy Combined systolic and diastolic cardiac dysfunction Coronary artery disease Depression Emphysema lung Erectile dysfunction Generalized anxiety disorder Hyperlipidemia Hypertension Hypogonadism Hypothyroidism Major depressive disorder, single episode, moderate Obstructive sleep apnea Intolerant to CPAP. Raynaud's syndrome without gangrene Right ventricular systolic dysfunction Severe pulmonary hypertension Solitary pulmonary nodule Surgical History Surgical History History of cardiac cath History of three vessel coronary artery bypass Family History Family History Father Hypertension Alcoholism Social History Social History Social History: Surrogate medical decision maker: Constantine Ko Jr., son. Code status: Full code. Smoking packs per day: 2 Smoking cigarettes per day: 40.0 Years smoked: 35 Smoking pack-years: 70.00 Smoking status: Former smoker Tobacco type: cigarettes Second hand tobacco smoke exposure: No Smoking end date: 05/02/06 Alcohol intake: current Drinks per week: 1 Substance use: never Substance use type: does not use Do You Feel Safe in your Home?: Yes Lack of Transportation: No Lack of Food: Never True Current Housing: I Have Housing Concerned About Future Housing: No Difficulty Paying Gas/Electric Bills: No Difficulty Paying for Meds: No Currently Unemployed: No Education: Associate Degree Difficulty w/ Childcare or Family Care: No Living arrangements: with family Additional living arrangements comments: Lives with spouse in [place]. Occupation/Education: retired Spiritual care concerns: No Meds Home Medications and Allergies Home Medications Medication Instructions Recorded Confir
--- NOTE | 2023-05-28 17:37 | PC.NURSE ---
This patient, Constantine Ko, was admitted to 2 Medical Room 259-01. Patient/family oriented to hospital policies and general routines including ID bracelet, bed and alarms, visiting hours, pain management, procedures, bathroom and other care routines, personal items, smoking policy, room service/diet, and visiting hours. Information on how to activate the Rapid Response Team has been discussed. Patient/Family are encouraged to report perceived risks to care and to ask questions if they do not understand what they are told or what they should do.
[2023-05-28 19:18] LABS: Influenza A QL RT-PCR Negative (Negative); Influenza B QL RT-PCR Negative (Negative); RSV RNA, RT-PCR Negative (Negative); SARS-CoV-2 RNA PCR Negative (Negative)
[2023-05-28 22:09] LABS: Troponin I 0.019 ng/mL (0.000-0.034)
[2023-05-29] VITALS (10 sets, daily range): BP systolic 105–117; BP diastolic 53–72; PULSE 60–76; RESP 20–22; TEMP 36.4–36.7; O2SAT 92–94
[2023-05-29 05:51] LABS: Mean Corpuscular Hemoglobin 27.5 pg (26-34); Mean Corpuscular Volume 91.7 fl (80-100); Mean Platelet Volume 10.1 fl (7.4-10.4); Platelet Count Result 183 k/mm3 (150-375); Red Blood Count 4.36 M/mm3 (4.6-6.20); Red Cell Distribution Width 15.6 % (11.5-14.5); White Blood Count 12.7 K/mm3 (4.5-10.0)
[2023-05-29 06:06] LABS: Anion Gap 6 mmol/L (8-16); Blood Urea Nitrogen 27 mg/dL (9-20); Calcium 8.3 mg/dL (8.4-10.2); Carbon Dioxide 26 mmol/L (22-30); Chloride 106 mmol/L (98-107); Estimated CRCL calculation 60 ml/min; Estimated Glomerular Filt Rate > 60; Glucose 130 mg/dL (65-110); Potassium 3.8 mmol/L (3.4-5.0); Sodium 138 mmol/L (137-145)
[2023-05-29 07:17] LABS: Thyroid Stimulating Hormone Reflex 0.818 uIU/mL (0.465-4.68)
[2023-05-29] MEDS: ASPIRIN 81 MG CHEWABLE TABLET PO (09:04)
[2023-05-29] MEDS: POTASSIUM CHLORIDE 20 MEQ ER TABLET PO (09:04)
[2023-05-29] MEDS: CITALOPRAM HYDROBROMIDE 20 MG TABLET 40 MG PO (09:05)
[2023-05-29] MEDS: ATORVASTATIN 40 MG TABLET 80 MG BY MOUTH (09:05)
[2023-05-29] MEDS: ENOXAPARIN 40 MG/0.4 ML SYRINGE SUB-Q (09:05)
[2023-05-29] MEDS: SILDENAFIL CITRATE 20 MG TABLET PO ×3 (09:06→17:21)
[2023-05-29] MEDS: lisinopriL 10 MG TABLET PO (09:06)
[2023-05-29] MEDS: MIRTAZAPINE 15 MG TABLET PO (09:06)
[2023-05-29] MEDS: predniSONE 20 MG TABLET PO (09:06)
--- NOTE | 2023-05-29 10:20 | P.PNIM_ITS ---
Progress Note: A&P Assessment and Plan (1) Pneumonia: Code(s): J18.9 - Pneumonia, unspecified organism Status: Acute Assessment and Plan: * CXR showing subsegmental bilateral lower lung atelectasis/pneumonia, possible small right pleural effusion * Patient started on Azithromycin and Rocephin * Currently on 5L NC which is his baseline * Continue Albuterol breathing treatments * Given a loading dose of solu-medrol while in the ER * Restarted on prednisone 20 mg daily (2) Abnormal chest x-ray: Code(s): R93.89 - Abnormal findings on diagnostic imaging of other specified body structures Status: Acute Assessment and Plan: * see above (3) Acute on chronic congestive heart failure: Qualifiers: Heart failure type: combined systolic and diastolic Qualified Code(s): I50.43 - Acute on chronic combined systolic (congestive) and diastolic (congestive) heart failure Code(s): I50.9 - Heart failure, unspecified Status: Acute Assessment and Plan: * Patient has acute on chronic systolic and diastolic heart failure * Patient given 40 mg IV lasix while in the ER * Restarted his 20 mg po lasix daily. Patient normally takes this as needed at home. We will give it to him daily for now. * Last echo was done on 07/09/22 and shown a LV systolic function moderately reduced with an EF of 40-45%, grade 1 diastolic dysfunction, RV systolic function is reduced as well, he also was noted to have severe pulmonary hypertension with an estimated PASP 89 mmHg. (4) Severe pulmonary hypertension: Code(s): I27.20 - Pulmonary hypertension, unspecified Status: Chronic Assessment and Plan: * Last echo showing severe pulmonary hypertension with an estimated PASP of 89 mmHg * Patient was restarted on sildenafil 20 mg t.i.d. (5) Chronic obstructive pulmonary disease: Qualifiers: COPD type: emphysema Emphysema type: unspecified Qualified Code(s): J43.9 - Emphysema, unspecified Code(s): J44.9 - Chronic obstructive pulmonary disease, unspecified Status: Chronic Assessment and Plan: * Patient currently on 4-5 L per nasal cannula which is his baseline oxygen requirement * Prednisone 20 mg restarted * He did receive 1 dose Solu-Medrol 125 mg IV in the emergency room (6) Chronic respiratory failure with hypoxia, on home oxygen therapy: Code(s): J96.11 - Chronic respiratory failure with hypoxia; Z99.81 - Dependence on supplemental oxygen Status: Chronic Assessment and Plan: * Of note, See above (7) Coronary artery disease: Qualifiers: Associated angina: without angina Coronary Disease-Associated Artery/[place] type: [place] artery [place] vs. transplanted heart: [place] heart Qualified Code(s): I25.10 - Atherosclerotic heart disease of [place] coronary artery without angina pectoris Code(s): I25.10 - Atherosclerotic heart disease of [place] coronary artery without angina pectoris Status: Chronic Assessment and Plan: * Patient restarted on atorvastatin 80 mg daily (8) Hypertension: Qualifiers: Hypertension type: primary hypertension Qualified Code(s): I10 - Essential (primary) hypertension Code(s): I10 - Essential (primary) hypertension Status: Chronic Assessment and Plan: * Blood pressures ranging * Restarted on lisinopril 20 mg daily Time Spent With Patient Time with patient: Greater than 35 minutes Subjective Date/time seen: 05/29/23 10:20 Interval history: This is a 77-year-old mal
--- NOTE | 2023-05-29 10:20 | PM.IMPN ---
Progress Note: A&P Assessment and Plan (1) Pneumonia: Code(s): J18.9 - Pneumonia, unspecified organism Status: Acute Assessment and Plan: CXR showing subsegmental bilateral lower lung atelectasis/pneumonia, possible small right pleural effusion Patient started on Azithromycin and Rocephin Currently on 5L NC which is his baseline Continue Albuterol breathing treatments Given a loading dose of solu-medrol while in the ER Restarted on prednisone 20 mg daily (2) Abnormal chest x-ray: Code(s): R93.89 - Abnormal findings on diagnostic imaging of other specified body structures Status: Acute Assessment and Plan: see above (3) Acute on chronic congestive heart failure: Qualifiers: Heart failure type: combined systolic and diastolic Qualified Code(s): I50.43 - Acute on chronic combined systolic (congestive) and diastolic (congestive) heart failure Code(s): I50.9 - Heart failure, unspecified Status: Acute Assessment and Plan: Patient has acute on chronic systolic and diastolic heart failure Patient given 40 mg IV lasix while in the ER Restarted his 20 mg po lasix daily. Patient normally takes this as needed at home. We will give it to him daily for now. Last echo was done on 07/09/22 and shown a LV systolic function moderately reduced with an EF of 40-45%, grade 1 diastolic dysfunction, RV systolic function is reduced as well, he also was noted to have severe pulmonary hypertension with an estimated PASP 89 mmHg. (4) Severe pulmonary hypertension: Code(s): I27.20 - Pulmonary hypertension, unspecified Status: Chronic Assessment and Plan: Last echo showing severe pulmonary hypertension with an estimated PASP of 89 mmHg Patient was restarted on sildenafil 20 mg t.i.d. (5) Chronic obstructive pulmonary disease: Qualifiers: COPD type: emphysema Emphysema type: unspecified Qualified Code(s): J43.9 - Emphysema, unspecified Code(s): J44.9 - Chronic obstructive pulmonary disease, unspecified Status: Chronic Assessment and Plan: Patient currently on 4-5 L per nasal cannula which is his baseline oxygen requirement Prednisone 20 mg restarted He did receive 1 dose Solu-Medrol 125 mg IV in the emergency room (6) Chronic respiratory failure with hypoxia, on home oxygen therapy: Code(s): J96.11 - Chronic respiratory failure with hypoxia; Z99.81 - Dependence on supplemental oxygen Status: Chronic Assessment and Plan: Of note, See above (7) Coronary artery disease: Qualifiers: Associated angina: without angina Coronary Disease-Associated Artery/Lesion type: [place] artery [place] vs. transplanted heart: [place] heart Qualified Code(s): I25.10 - Atherosclerotic heart disease of [place] coronary artery without angina pectoris Code(s): I25.10 - Atherosclerotic heart disease of [place] coronary artery without angina pectoris Status: Chronic Assessment and Plan: Patient restarted on atorvastatin 80 mg daily (8) Hypertension: Qualifiers: Hypertension type: primary hypertension Qualified Code(s): I10 - Essential (primary) hypertension Code(s): I10 - Essential (primary) hypertension Status: Chronic Assessment and Plan: Blood pressures ranging Restarted on lisinopril 20 mg daily Time Spent With Patient Time with patient: Greater than 35 minutes Subjective Date/time seen: 05/29/23 10:20 Interval history: This is a 77-year-old male who presented to the hospital on 05/28/2023 with complaints of shortness of breath and leg swelling. Workup in the hospital include a chest x-ray which showed subsegmental bilateral lower lung atelectasis versus pneumonia, possible small right pleural effusion. EKG showing sinus rhythm with right axis deviation, rate of 63, prolonged QTC Labs initially revealed a white blood cell count of 13.9, hemoglobin 13
[2023-05-29] MEDS: AZITHROMYCIN 500 MG/NS 250 ML 500 MG/250 ML BAG 250 MG IVPB (17:49)
[2023-05-30] VITALS (7 sets, daily range): BP systolic 122–128; BP diastolic 71–72; PULSE 60–77; RESP 16–18; TEMP 36.7; O2SAT 94–97
[2023-05-30 06:10] LABS: Basophils Absolute Auto 0.1 K/mm3 (0.0-0.1); Basophils Percent Auto 0.4 % (0.2-1.2); Eosinophils Absolute Auto 0.1 K/mm3 (0-0.3); Eosinophils Percent Auto 0.8 % (0-4.4); Hematocrit 41.9 % (42.0-52.0); Hemoglobin 12.7 g/dL (14.0-18.0); Immature Granulocyte Absolute 0.17 K/mm3 (0.00-0.031); Immature Granulocyte Percent A 1.4 % (0-0.5); Lymphocytes Absolute Auto 2.21 K/mm3 (0.9-3.2); Lymphocytes Percent Auto 18.3 % (18.3-44.2); Mean Corpuscular HGB Conc 30.3 g/dl (32-36); Mean Corpuscular Volume 92.3 fl (80-100); Monocytes Absolute Auto 0.6 K/mm3 (0.1-0.6); Monocytes Percent Auto 4.6 % (2.6-8.5); Neutrophils Percent Auto 74.5 % (45.5-73.1); Platelet Count Result 172 k/mm3 (150-375); Red Blood Count 4.54 M/mm3 (4.6-6.20); Red Cell Distribution Width 15.8 % (11.5-14.5); White Blood Count 12.1 K/mm3 (4.5-10.0)
[2023-05-30 06:53] LABS: Alanine Aminotransferase 26 U/L (6-50); Albumin Level 2.9 g/dL (3.5-5.1); Alkaline Phosphatase 58 U/L (38-126); Anion Gap 6 mmol/L (8-16); Aspartate Amino Transferase 25 U/L (17-59); Bilirubin,Total 0.8 mg/dL (0.2-1.3); Blood Urea Nitrogen 29 mg/dL (9-20); Calcium 8.1 mg/dL (8.4-10.2); Carbon Dioxide 24 mmol/L (22-30); Chloride 106 mmol/L (98-107); Estimated CRCL calculation 60 ml/min; Estimated Glomerular Filt Rate > 60; Glucose 117 mg/dL (65-110); Sodium 136 mmol/L (137-145)
[2023-05-30 07:33] LABS: Potassium 3.5 mmol/L (3.4-5.0)
--- NOTE | 2023-05-30 08:34 | PM.DS ---
DS: Admitting Diagnosis Discharge Date 05/30/23 Admitting Diagnosis Pneumonia Acute on chronic respiratory failure Severe pulmonary hypertension COPD Chronic respiratory failure with hypoxia, on home oxygen therapy CAD HTN DS: Discharge Diagnosis Discharge Diagnosis (1) Pneumonia: Code(s): J18.9 - Pneumonia, unspecified organism Status: Acute (2) Abnormal chest x-ray: Code(s): R93.89 - Abnormal findings on diagnostic imaging of other specified body structures Status: Acute (3) Acute on chronic congestive heart failure: Qualifiers: Heart failure type: combined systolic and diastolic Qualified Code(s): I50.43 - Acute on chronic combined systolic (congestive) and diastolic (congestive) heart failure Code(s): I50.9 - Heart failure, unspecified Status: Acute (4) Severe pulmonary hypertension: Code(s): I27.20 - Pulmonary hypertension, unspecified Status: Chronic (5) Chronic obstructive pulmonary disease: Code(s): J44.9 - Chronic obstructive pulmonary disease, unspecified Status: Chronic (6) Chronic respiratory failure with hypoxia, on home oxygen therapy: Code(s): J96.11 - Chronic respiratory failure with hypoxia; Z99.81 - Dependence on supplemental oxygen Status: Chronic (7) Coronary artery disease: Qualifiers: Associated angina: without angina Coronary Disease-Associated Artery/Lesion type: [place] artery [place] vs. transplanted heart: [place] heart Qualified Code(s): I25.10 - Atherosclerotic heart disease of [place] coronary artery without angina pectoris Code(s): I25.10 - Atherosclerotic heart disease of [place] coronary artery without angina pectoris Status: Chronic (8) Hypertension: Qualifiers: Hypertension type: primary hypertension Qualified Code(s): I10 - Essential (primary) hypertension Code(s): I10 - Essential (primary) hypertension Status: Chronic DS: Summary Hospital Course Reason for hospitalization: Pneumonia Acute on chronic congestive heart failure Severe pulmonary hypertension COPD Chronic respiratory failure with hypoxia, on home oxygen therapy Hospital Course: This is a 77-year-old male who presented to the hospital on 05/28/2023 with complaints of shortness of breath and leg swelling.? Workup in the hospital include a chest x-ray which showed subsegmental bilateral lower lung atelectasis versus pneumonia, possible small right pleural effusion.? EKG showing sinus rhythm with right axis deviation, rate of 63, prolonged QTC Labs initially revealed a white blood cell count of 13.9, hemoglobin 13.2, liver enzymes are normal, troponins are negative, proBNP 553, lipase 236.? UA was performed and is essentially unremarkable other than trace ketones.? Respiratory panel was done and is negative for influenza, RSV, COVID.? Patient was given 40 of Lasix IV push, albuterol neb treatment, Solu-Medrol 125 mg IV push, and started on Rocephin and azithromycin.On examination today patient is alert and oriented x3, lying in the bed. He denies any new complaints today. Labs today revealed WBC 12.1,RBC 4.54, hemoglobin 12.7 hematocrit 41.9, sodium 136. Vital signs are stable he is afebrile, he is currently on 5 L which is his baseline. He is stable for discharge today. Prescription for Augmentin called to his pharmacy. He will need to follow up with his primary care physician in 1 week. Final diagnosis: Pneumonia, Acute on chronic CHF, severe pulmonary hypertension, COPD Status at Discharge Cognitive/behavioral status at discharge: Alert and oriented x4 Functional status at discharge: independent ambulation Overall status at discharge: patient is progressing back to baseline Time Spent with Patient Time attestation: Total time spent providing and/or coordinating discharge services: Time spent: Greater than 30 minutes Exam Narrative: General: In no acute distress, well nourished Head:
[2023-05-30] MEDS: CITALOPRAM HYDROBROMIDE 20 MG TABLET 40 MG PO (09:27)
[2023-05-30] MEDS: SILDENAFIL CITRATE 20 MG TABLET PO ×2 (09:27→12:32)
[2023-05-30] MEDS: lisinopriL 10 MG TABLET PO (09:27)
[2023-05-30] MEDS: MIRTAZAPINE 15 MG TABLET PO (09:27)
[2023-05-30] MEDS: predniSONE 20 MG TABLET PO (09:27)
[2023-05-30] MEDS: POTASSIUM CHLORIDE 20 MEQ ER TABLET PO (09:27)
[2023-05-30] MEDS: FUROSEMIDE 20 MG TABLET PO (09:27)
[2023-05-30] MEDS: ATORVASTATIN 40 MG TABLET 80 MG BY MOUTH (09:27)
[2023-05-30] MEDS: ASPIRIN 81 MG CHEWABLE TABLET PO (09:27)
[2023-05-30] MEDS: ENOXAPARIN 40 MG/0.4 ML SYRINGE SUB-Q (09:33)
[2023-05-30] MEDS: AZITHROMYCIN 250 MG TABLET 500 MG PO (09:33)
== END 2023-05-30 13:30 | disposition home or self-care (01) ==
LOC: ANHED 14:58 → ANH2MED 17:03
PROVIDERS: Nurse Practitioner Acute Care; Physician Assistant; Admitting Provider Family Medicine; Emergency Provider Emergency Medicine; PCP Family Medicine; Visit Provider Family Medicine
DX: J44.0 Chronic obstructive pulmonary disease with (acute) lower respiratory infection (principal); J18.9 Pneumonia, unspecified organism; I11.0 Hypertensive heart disease with heart failure; I50.43 Acute on chronic combined systolic (congestive) and diastolic (congestive) heart failure; J96.11 Chronic respiratory failure with hypoxia; I25.10 Atherosclerotic heart disease of native coronary artery without angina pectoris; Z95.1 Presence of aortocoronary bypass graft; E03.9 Hypothyroidism, unspecified; Z20.822 Contact with and (suspected) exposure to COVID-19; E78.5 Hyperlipidemia, unspecified; I70.0 Atherosclerosis of aorta; Z99.81 Dependence on supplemental oxygen; F32.1 Major depressive disorder, single episode, moderate; G47.33 Obstructive sleep apnea (adult) (pediatric); F10.90 Alcohol use, unspecified, uncomplicated; Z87.891 Personal history of nicotine dependence; Z79.82 Long term (current) use of aspirin; Z79.2 Long term (current) use of antibiotics; Z79.52 Long term (current) use of systemic steroids; Z79.899 Other long term (current) drug therapy; Z82.49 Family history of ischemic heart disease and other diseases of the circulatory system
CPT/HCPCS: 36415; 71045; 80048; 80053; 81003; 83605; 83690; 83735; 83880; 84443; 84484; 85025; 85027; 85610; 85730; 87637; 93005; 94640; 96365; 96366; 96367; 96372; 96375; 99285; A9270; G0378; J0456; J0696; J1650; J1940; J2930; J7512

== ENCOUNTER 2023-08-09 09:30 | Outpatient (RCR) | payer MEDICARE, SELFPAY | END 2023-09-30 14:44 | disposition home or self-care (01) | LOC: ANHCPREHAB 09:30 | PROVIDERS: PCP Family Medicine | DX: J44.9 Chronic obstructive pulmonary disease, unspecified (principal) | CPT/HCPCS: 94625 ==

== ENCOUNTER 2023-11-22 13:38 | Outpatient (CLI) | payer MEDICARE, SELFPAY ==
--- NOTE | ~2023-11-22 | MR_ITS ---
Procedure: MR lumbar spine wo con Ordering provider: Guerda Duong MD History: . S34.109A - Unspecified injury to unspecified level of lum... . Comparison: None. Technique: MRI lumbar spine without contrast. FINDINGS: SPINAL CORD: Normal. The cord ends at the level of L1-L2. VERTEBRAL BODIES: Normal height and alignment. No compression fracture. Normal marrow signal. Schmorl 's node is seen in the superior endplate of L4. DISK SPACES: Narrowing of the disc L1-L2. STENOSIS: L1-L2: Moderate stenosis. Diffuse disc bulge. Thickening of the ligamenta flava. No definite narrowin g of the foramina with root compression seen. L2-L3: Mild stenosis. Diffuse disc bulge. Thickening of the ligamenta flava. Mild narrowing of the fo ramina more on the right side. No definite root compression. L3-4: Moderate spinal canal stenosis. Diffuse disc bulge. Bilateral narrowing of the foramina. Bilate ral nerve root compression. L4-L5: Moderate spinal canal stenosis. Annulus tear. Diffuse disc bulge. Narrowing of the left forami na with root compression. L5-S1: Diffuse disc bulge more to the left with bilateral narrowing of the foramina and left nerve ro ot compression PARASPINOUS SOFT TISSUES: Normal. Multilevel facet joint disease. IMPRESSION: No compression fracture of the lumbar spine. Multilevel spinal canal stenosis with variable degrees of intervertebral foraminal narrowing. Reviewed, dictated and finalized at location A. IMPRESSION: No compression fracture of the lumbar spine. Multilevel spinal canal stenosis with variable degrees of intervertebral forami nal narrowing.
== END 2023-11-22 13:39 ==
LOC: MICIMG 13:39
PROVIDERS: PCP Family Medicine; Visit Provider Neurological Surgery
DX: M48.061 Spinal stenosis, lumbar region without neurogenic claudication (principal); M47.817 Spondylosis without myelopathy or radiculopathy, lumbosacral region
CPT/HCPCS: 72148

== ENCOUNTER 2024-01-05 10:05 | Outpatient (CLI) | payer MEDICARE, SELFPAY ==
[2024-01-05 11:52] LABS: Hematocrit 40.9 % (42.0-52.0); Hemoglobin 12.2 g/dL (14.0-18.0); Mean Corpuscular HGB Conc 29.8 g/dl (32-36); Mean Corpuscular Hemoglobin 26.4 pg (26-34); Mean Corpuscular Volume 88.5 fl (80-100); Mean Platelet Volume 9.9 fl (7.4-10.4); Platelet Count Result 292 k/mm3 (150-375); Red Blood Count 4.62 M/mm3 (4.6-6.20); Red Cell Distribution Width 17.4 % (11.5-14.5); White Blood Count 10.3 K/mm3 (4.5-10.0)
[2024-01-05 11:53] LABS: Add Urine Microscopic? NO; Appearance Urine Clear (Clear); Bilirubin Urine Negative (Negative); Blood Urine Negative (Negative); Color Urine Yellow (Yellow); Glucose Urine UA Negative (Negative); Ketones Urine Negative (Negative); Leukocyte Esterase Ur Negative LEU/UL (Negative); Nitrate Urine Negative (Negative); Protein Urine Negative (Negative); Urobilinogen Urine 0.2 mg/dL (<2.0); pH Urine 5.5 (5.0-9.0)
[2024-01-05 12:02] LABS: Partial Thromboplastin Time 30.6 Seconds (22.3-36.8); Prothrombin Time 13.8 Seconds (11.1-14.7)
[2024-01-05 12:03] LABS: Anion Gap 14 mmol/L (4-12); Blood Urea Nitrogen 27 mg/dL (9-20); Calcium 9.1 mg/dL (8.4-10.2); Carbon Dioxide 25 mmol/L (22-30); Chloride 101 mmol/L (98-107); Estimated Glomerular Filt Rate 54; Glucose 75 mg/dL (65-110); Potassium 3.1 mmol/L (3.4-5.0); Sodium 140 mmol/L (137-145)
== END 2024-01-05 10:06 | disposition home or self-care (01) ==
PROVIDERS: PCP Family Medicine; Visit Provider Neurological Surgery
DX: M48.062 Spinal stenosis, lumbar region with neurogenic claudication (principal)
CPT/HCPCS: 36415; 80048; 81003; 85027; 85610; 85730

== ENCOUNTER 2024-01-11 01:59 | Day surgery (SDC) | payer MEDICARE, SELFPAY ==
[2024-01-04 09:57] VITALS: BMI 23.1
--- NOTE | 2024-01-04 10:01 | PC.NURSE ---
Report to the Outpatient Waiting Room, entrance under the green pavilion located off [facility], at time _0600_ on date _[id number]_. Planned Procedure Time: _0730_.? Time changes happen often and if your time is changed the preop area will call you the afternoon before. - You and your visitor will be asked to self-screen and do not enter if you have any COVID symptoms. Please call surgeon if you need to reschedule. - A mask is optional within the hospital at this time. Patients may have clear liquids (water, carbonated beverages, clear teas, apple juice) until 3 hours prior to surgery with a maximum of 20 ounces. - No food from midnight until time of surgery and no smoking Take only the following medications with a SIP of water on the morning of surgery: ___Citalopram, Macitenten, Prednisone and if needed Inhalers or nebulizer. DO NOT STOP ANY OF YOUR OTHER PRESCRIPTION MEDICATIONS PRIOR TO SURGERY EXCEPT THE FOLLOWING Medications to discontinue per physician Aspirin Date to take last vuob____[id number] Please no make-up, nail danish, hairspray, perfume, deodorant, or body powder the day of surgery.? No jewelry (including any body piercings) or valuables the day of surgery, leave them at home.? Please take a shower or bath the night before, or the morning of, surgery with an antibacterial soap.? Wear comfortable, loose fitting clothing.? - Jewelry must be removed prior to entering the operating room.? Rings and piercings that are not removed may be cut off. - The hospital will not accept responsibility for valuables.? - Please leave all valuables, including medications, at home the day of surgery. If you are going home after surgery, a licensed dedicated driver must drive you home.? - NO public transportation without another adult if you receive anesthesia. - We recommend that an adult stay with you for 24 hours following discharge. - We also recommend that you do not drive, make important decision, drink alcoholic beverages, or take any drugs that were not prescribed by your health care provider for at least 24 hours after your discharge time. Follow any additional instructions given to you from your surgeon. Telephone instructions given to __Ken___and asked if any additional questions and then verbalized understanding. Patient advised to call surgeon office or pre surgery nurse liaison [phone] if any additional questions.
[2024-01-11 06:00] VITALS: BP 142/78; PULSE 72; RESP 20; TEMP 36.1; O2SAT 93
[2024-01-11 06:21] VITALS: BMI 24.0
[2024-01-11] MEDS: LACTATED RINGERS 1,000 ML 30 ML IV CONT (06:30)
--- NOTE | 2024-01-11 07:16 | PM.IMHP ---
H&P: HPI History of Present Illness Date/Time: 01/11/24 07:16 Chief Complaint: bilateral foot drop, back/leg pain Narrative: Mr. Ko is a 78-year-old male with history of severe COPD on home oxygen, CABG on aspirin who presents for evaluation of back and bilateral leg pain as well as a right footdrop. In July, the patient was helping his to move. She wrapped her arms around his neck, and when he went to stand up, he felt a crack in his back. Since that time, he has had pain across the lower back radiating into both legs in what sounds like an L5 dermatome, much worse on the right side, with paresthesias in a similar distribution. He has had a right footdrop since July. His pain is present with standing and walking, and he is not able to stand up straight due to pain. He has been using a Rollator walker for the last 8 weeks to mobilize. He denies any bowel or bladder changes. He has been seeing chiropractor which has not been helpful. He notably has had some previous issues with his lower back which he describes as sciatica with pain more in the buttocks than the legs. He had some physical therapy last January. He has never seen Pain Management. He notably has severe COPD, chronic hypoxemic respiratory failure, and pulmonary hypertension and chronically uses 5-6L of oxygen consistently. He also takes prednisone three times per week. He recently established with the statistician through [facility], Dr. Lares, whom he sees later this month. He had a CABG in 2016. He follows with Dr. Ramirez. He takes ASA 81mg daily. He quit smoking 20 years ago. Review of Systems Review of Systems: All systems reviewed & are unremarkable except as noted in HPI and below PMFSH Past Medical History Medical History Atherosclerosis of aorta Benign essential hypertension Chronic respiratory failure with hypoxia, on home oxygen therapy Combined systolic and diastolic cardiac dysfunction Coronary artery disease Depression Emphysema lung Erectile dysfunction Generalized anxiety disorder Hyperlipidemia Hypertension Hypogonadism Hypothyroidism Major depressive disorder, single episode, moderate Obstructive sleep apnea Intolerant to CPAP. Raynaud's syndrome without gangrene Right ventricular systolic dysfunction Severe pulmonary hypertension Solitary pulmonary nodule Surgical History Surgical History History of cardiac cath History of three vessel coronary artery bypass Family History Family History Father Hypertension Alcoholism Social History Social History Social History: Surrogate medical decision maker: Constantine Ko Jr., son. Code status: Full code. Smoking packs per day: 1 Smoking cigarettes per day: 20.0 Years smoked: 40 Smoking pack-years: 40.00 Smoking status: Former smoker Tobacco type: cigarettes Smoking end date: 01/04/04 Alcohol intake: current Drinks per week: 1 Substance use: never Substance use type: does not use Do You Feel Safe in your Home?: Yes Lack of Transportation: No Lack of Food: Never True Current Housing: I Have Housing Concerned About Future Housing: No Difficulty Paying Gas/Electric Bills: No Difficulty Paying for Meds: No Currently Unemployed: No Education: Associate Degree Difficulty w/ Childcare or Family Care: No Living arrangements: with family Additional living arrangements comments: Lives with spouse in [place]. Occupation/Education: retired Spiritual care concerns: No Meds Home Medications and Allergies Home Medications Medication Instructions Recorded Confirmed Type aspirin 81 mg chewable tablet 81 mg PO DAILY 04/22/20 01/11/24 History lisinopril 20 mg tablet 10 mg PO DAILY 06/28/22 01/04/24 Hist
--- NOTE | 2024-01-11 07:18 | WPDHPUPDATE1 ---
History and Physical Update Update Date/Time: 01/11/24 07:18 History and Physical has been reviewed, including an updated exam of the patient. There are NO changes in the patient's condition. Risks, benefits, and alternatives have been discussed and questions answered. Patient agrees to proceed with procedure.
--- NOTE | 2024-01-11 07:27 | WPDANESEPPF ---
Anes - Initial Pre Proc Eval Procedure: Operation Date: 01/11/24 07:30 Proposed Procedures p L2-L3, L3-4, L4-5 Lumbar Laminectomy - Guerda Duong MD Date/Time: 01/11/24 07:27 Surgeon: Guerda Duong MD Pre Op Diagnosis: lumb stenosis w/neuro claudication, rt foot drop Patient Data Age: 78 Gender: M Height: 1.8 m Weight: 78 kg Allergies Allergy/AdvReac Type Severity Reaction Status Date / Time crab Allergy Intermediate Hives Verified 01/11/24 06:20 tiotropium Allergy Mild Dizziness Verified 01/11/24 06:20 [From Spiriva with HandiHaler] Home Medications Medication Instructions Recorded Confirmed Type aspirin 81 mg chewable tablet 81 mg PO DAILY 04/22/20 01/11/24 History lisinopril 20 mg tablet 10 mg PO DAILY 06/28/22 01/04/24 History nebulizers #1 ea 07/08/22 01/04/24 Rx ipratropium 0.5 mg-albuterol 3 mg 3 ml inhalation QID PRN shortness 07/13/22 01/04/24 Rx (2.5 mg base)/3 mL nebulization of breath #180 mL soln macitentan 10 mg tablet (Opsumit) 10 mg PO DAILY 01/14/23 01/04/24 History albuterol sulfate 90 mcg/actuation 1 inh inhalation QID PRN shortness 05/30/23 01/04/24 Rx aerosol inhaler of breath or wheezing #8.5 grams mirtazapine 15 mg tablet See Rx Instructions .Route 06/21/23 01/04/24 Rx .COMPLEX #90 tabs citalopram 20 mg tablet 40 mg PO DAILY #180 tabs 09/06/23 01/04/24 Rx Breztri Aerosphere 160 2 inh inhalation BID #10.7 grams 10/14/23 01/04/24 Rx mcg-9mcg-4.8mcg/actuation HFA aerosol inhaler ([id number]) prednisone 20 mg tablet See Rx Instructions .Route 10/24/23 01/04/24 Rx .COMPLEX #30 tabs furosemide 40 mg tablet 40 mg PO DAILY #90 tabs 08/19/24 09/04/24 Rx potassium chloride 20 mEq 20 meq PO DAILY@0800 #90 tabs 12/19/23 01/04/24 Rx tablet,extended release (K-Tab) azithromycin 500 mg tablet 500 mg PO .three times per week 90 01/02/24 01/04/24 Rx days #36 tabs atorvastatin 80 mg tablet 80 mg PO DAILY #90 tabs 01/09/24 Rx Patient hx anesthesia problems: none Family hx anesthesia problems: none Results Review: All pre-operative results and documents have been reviewed as part of the pre-operative evaluation. [facility] Past Medical History Medical History Atherosclerosis of aorta Benign essential hypertension Chronic respiratory failure with hypoxia, on home oxygen therapy Combined systolic and diastolic cardiac dysfunction Coronary artery disease Depression Emphysema lung Erectile dysfunction Generalized anxiety disorder Hyperlipidemia Hypertension Hypogonadism Hypothyroidism Major depressive disorder, single episode, moderate Obstructive sleep apnea Intolerant to CPAP. Raynaud's syndrome without gangrene Right ventricular systolic dysfunction Severe pulmonary hypertension Solitary pulmonary nodule Surgical History Surgical History History of cardiac cath History of three vessel coronary artery bypass Family History Family History Father Hypertension Alcoholism Social History Social History Social History: Surrogate medical decision maker: Constantine Ko Jr., son. Code status: Full code. Smoking packs per day: 1 Smoking cigarettes per day: 20.0 Years smoked: 40 Smoking pack-years: 40.00 Smoking status: Former smoker Tobacco type: cigarettes Smoking end date: 01/04/04 Alcohol intake: current Drinks per week: 1 Substance use: never Substance use type: does not use Do You Feel Safe in your Home?: Yes Lack of Transportation: No Lack of Food: Never True Current Housing: I Have Housing Concerned About Future Housing: No Difficulty Paying Gas/Electric Bills: No Difficulty Paying for Meds: No Currently Unemployed: No Education: Associ
--- NOTE | 2024-01-11 07:35 | SUR.PREOP ---
0735- Per Dr. Duong she is cancelling patient's surgery today due to patient's condition improving since last being seen in office. Patient agreeable to do outpatient therapy and postpone surgery.
--- NOTE | 2024-01-11 07:38 | PM.EVENT ---
Event Note Event Note Event Note: On discussion with the patient, he has actually symptomatically improved quite a bit recently. His pain has lessened significantly, and he has also been able to ambulate without dragging his foot. He states he was able to walk outside yesterday with no pain which was a miracle for him. On exam, his right foot drop has improved to 3/5 strength. In light of his recent improvement, we discussed holding off on surgery and having him pursue formal physical therapy. We also discussed proceeding with surgery as scheduled. Ultimately, he elected to hold off on surgery since his symptoms have improved so much. I will therefore plan for formal therapy and will have him follow up in clinic with me in about 6 weeks.
== END 2024-01-11 07:57 | disposition home or self-care (01) ==
PROVIDERS: PCP Family Medicine; Visit Provider Neurological Surgery
PROC: (CPT 63005; principal; 2024-01-11 07:30)
DX: M21.371 Foot drop, right foot (principal); M48.062 Spinal stenosis, lumbar region with neurogenic claudication; D17.79 Benign lipomatous neoplasm of other sites; J43.9 Emphysema, unspecified; I11.0 Hypertensive heart disease with heart failure; I50.40 Unspecified combined systolic (congestive) and diastolic (congestive) heart failure; F32.1 Major depressive disorder, single episode, moderate; N52.9 Male erectile dysfunction, unspecified; F41.9 Anxiety disorder, unspecified; E29.1 Testicular hypofunction; E03.9 Hypothyroidism, unspecified; G47.33 Obstructive sleep apnea (adult) (pediatric); I73.00 Raynaud's syndrome without gangrene; I27.20 Pulmonary hypertension, unspecified; J96.11 Chronic respiratory failure with hypoxia; F32.A Depression, unspecified; I70.0 Atherosclerosis of aorta; I25.10 Atherosclerotic heart disease of native coronary artery without angina pectoris; Z79.82 Long term (current) use of aspirin; Z79.52 Long term (current) use of systemic steroids; Z79.51 Long term (current) use of inhaled steroids; Z99.81 Dependence on supplemental oxygen; Z98.890 Other specified postprocedural states; Z95.1 Presence of aortocoronary bypass graft; Z87.891 Personal history of nicotine dependence; Z53.8 Procedure and treatment not carried out for other reasons
CPT/HCPCS: 99213; G0463; J1170; J3010; J7120

== ENCOUNTER 2024-03-02 10:00 | Outpatient (RCR) | payer MEDICARE, SELFPAY ==
--- NOTE | 2024-01-30 17:41 | OPREHPOC ---
Outpatient Therapy Plan of Care This is a Multidisciplinary Plan of Care that may contain components documented by all disciplines (PT, OT, and ST.) PT Problem 1 PT Problem #1 Knowledge Deficit PT Goal 1 Goal / Goal Update Patient will be independent with HEP for hip strength and mobility Target Visit 4 PT Problem 2 PT Problem #2 Impaired Strength PT Goal 1 Goal / Goal Update Improve marisel hip flexion strength to 4+/5 to improve marisel foot clearance for ambulation safety Target Visit 8 PT Goal 2 Goal / Goal Update Improve marisel hip abduction strength to 4/5 to improve lateral stability for gait and ambulation Target Visit 8 PT Problem 3 PT Problem #3 Impaired Flexibility PT Goal 1 Goal / Goal Update Improve marisel hamstring flexibility to -25 degrees or better for reduced posterior pelvic pull Target Visit 8 PT Problem 4 PT Problem #4 Impaired Functional Mobil PT Goal 1 Goal / Goal Update Patient will improve Oswestry score by 20 points to improve overall functional use of back Target Visit 8
--- NOTE | 2024-01-30 17:41 | PTOPEVAL1 ---
Assessment and note entered by Delfin Rodriguez, PT Evaluation Information Assessment Status Evaluation Diagnosis Lumbar radiculopathy ICD-10 Condition Codes (PT) M54.16 Onset July 2023 Subjective Information Reports that he was ready for surgery on 01/11/24. After consulting with physician it was decided that he would hold off on surgery and start therapy. He has noted some decreased pain and improved mobility. Reports that he is walking about 50' right now without a walker but uses a Rollator for anything over that. He feels he has lost a lot of mobility in his legs from not being as active. He is currently on oxygen for COPD. Feels limited in endurance from his breathing and weakness in legs. Reported Pain Level Pain Score 2: Self Report Assessment PT Clinical Summary Patient presents with significant weakness in marisel hips and poor hip mobility compounding strain to the lumbar spine with exercise activity. Patient will benefit from skilled therapy to address deficits and improve overall mobility and pain relief in lumbar spine. Emphasis will be placed on endurance and functional mobility. Plan of Care PT Services Indicated Yes Treatment Frequency and 2x/week for 8 visits Duration These treatments will address the objective and functional deficits as defined above. The patient will be advanced safely and appropriately in order for the patient to progress towards his/her prior level of function. Additional exercises will be introduced and as well as a comprehensive home exercise program upon discharge, if needed, ?to ensure carryover of functional gains achieved in the clinic. This treatment plan has been reviewed and agreement upon by the patient.
--- NOTE | 2024-03-02 10:52 | PTOPDC ---
Assessment and note entered by Zehra Diamond, PT Discharge Report Assessment Status Discharge Diagnosis Lumbar radiculopathy ICD-10 Condition Codes (PT) M54.16 Onset July 2023 Subjective Information to see next week; have been doing the exercises at home, but have some breathing troubles, so sometimes they are hard to do; use the walker 80% of the time due to back hurting; stays home most of the time--do not go to the grocery store- cannot walk that far, out to eat because of stairs; is doing almost all the chores at home because he cannot do them; is frustrated and does not like being disabled. Reported Pain Level Pain Score Self Report Additional Pain Score Comments pain range in the past week: 0- 5/10; dull, ache on L low back; constant numb feeling in L top of foot and toes- cold feeling; heat helps some; decrease pain: lie in bed, when first wake up in AM; increase pain: getting up out of bed--sit,stand, walking reported tolerances: walk/stand 10-15 minutes; Assessment PT Clinical Summary Blane has received 10 PT sessions. He has made minimal improvement with treatments. Compared to the initial evaluation: pain rating from 0-6 to 0-5/10; radicular pain into L foot and ankle- cold, numb and tingle; pain is increased with sit, stand and walking/ eased with supine position; sleeping is OK; self assessment with the Oswestry rating is the same at 42% limitation activity level; 2 minute walking test distance increased from 300' to 375' with rollator and oxygen; tightness of both hamstrings, without pain; weakness over bilateral hip abduction muscles; Education completed for HEP and pain management techniques. The goals were partially met. Discharge PT services. He has a follow up with surgeon next week. Plan of Care PT Services Indicated No
== END 2024-03-06 14:37 | disposition home or self-care (01) ==
LOC: ANHPT 10:00
PROVIDERS: PCP Family Medicine; Visit Provider Neurological Surgery
DX: M48.062 Spinal stenosis, lumbar region with neurogenic claudication (principal); M54.16 Radiculopathy, lumbar region
CPT/HCPCS: 97110; 97140; 97161; 97530

== ENCOUNTER 2024-05-15 08:24 | Outpatient (CLI) | payer MEDICARE, SELFPAY ==
--- NOTE | 2024-05-15 11:00 | NEURO_ITS ---
Impression: # Non-Diabetic complains of paresthesia in lower extremities. ? 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 ? # Needle/EMG exam neurogenic. ?Nerve Conduction Studies Anti Sensory Summary Table ?Stim Site NR Peak (ms) P-T Amp (?V) Site1 Site2 Delta-P (ms) Dist (cm) Jeovany (m/s) Left Sup Fibular Anti Sensory (Ant Lat Mall) 14 cm ? 4.6 11.1 14 cm Ant Lat Mall 4.6 16.0 35 Right Sup Fibular Anti Sensory (Ant Lat Mall)??? NO RESPONSE 14 cm NR 14 cm Ant Lat Mall 16.0 Left Sural Anti Sensory (Lat Mall)??? NO RESPONSE Calf NR Calf Lat Mall 16.0 Right Sural Anti Sensory (Lat Mall)??? NO RESPONSE Calf NR Calf Lat Mall 16.0 Motor Summary Table ?Stim Site NR Onset (ms) O-P Amp (mV) Site1 Site2 Delta-0 (ms) Dist (cm) Jeovany (m/s) Left Peroneal Motor (Vastus Med) Ankle ? 5.5 0.4 Popit Ankle 12.9 42.0 33 Popit ? 18.4 0.4 Right Peroneal Motor (Vastus Med)??? NO RESPONSE Ankle NR Popit Ankle 0.0 Popit NR Left Tibial Motor (Abd Salcido Brev) Ankle ? 5.5 0.9 Knee Ankle 11.5 44.0 38 Knee ? 17.0 1.7 Right Tibial Motor (Abd Salcido Brev) Ankle ? 5.5 1.0 Knee Ankle 11.6 44.0 38 Knee ? 17.1 1.1 F Wave Studies ?NR F-Lat (ms) L-R F-Lat (ms) Left Peroneal (Mrkrs) (EDB) ? 67.49 Right Peroneal (Mrkrs) (EDB)??? NO RESPONSE NR Left Tibial (Mrkrs) (Abd Hallucis) ? 64.69 Right Tibial (Mrkrs) (Abd Hallucis)??? DISPERSED RESPONSE NR EMG ?Side Muscle Nerve Root Ins Act Fibs Amp Dur Recrt Comment Right AntTibialis Dp Br Fibular L4-5 Nml Nml Decr >12ms +1 Right Gastroc Tibial S1-2 Nml Nml Decr >12ms +1 Right Fibularis Long Sup Br Fibular L5-S1 Nml Nml Decr >12ms +1 Right Flex Dig Long Tibial L5-S2 Nml Nml Decr >12ms +1 Right Ext Dig Brev Dp Br Fibular L5, S1 Nml Nml Decr >12ms +1 Right QuadratusFem QuadFemoris L4-5, S1 Nml Nml Decr >12ms +1 Left AntTibialis Dp Br Fibular L4-5 Nml Nml Decr >12ms +1 Left Gastroc Tibial S1-2 Nml Nml Decr >12ms +1 Left Fibularis Long Sup Br Fibular L5-S1 Nml Nml Decr >12ms +1 Left Flex Dig Long Tibial L5-S2 Nml Nml Decr >12ms +1 Left Ext Dig Brev Dp Br Fibular L5, S1 Nml Nml Decr >12ms +1 Left QuadratusFem QuadFemoris L4-5, S1 Nml Nml Decr >12ms +1 MTDD
== END 2024-05-15 08:25 | disposition home or self-care (01) ==
LOC: ANHNEURO 08:27
PROVIDERS: PCP Family Medicine; Visit Provider Neurological Surgery
DX: G62.9 Polyneuropathy, unspecified (principal); M54.16 Radiculopathy, lumbar region; M48.062 Spinal stenosis, lumbar region with neurogenic claudication; M21.371 Foot drop, right foot
CPT/HCPCS: 95886; 95910

== ENCOUNTER 2024-05-29 11:32 | Outpatient (CLI) | payer MEDICARE, SELFPAY ==
--- NOTE | ~2024-05-29 | XR_ITS ---
Lumbosacral Spine: AP and lateral views Clinical History: Pain COMPARISON: 05/26/2021 Findings: There is generalized osteopenia. There is straightening of the normal lumbar lordosis. Ther e is mild to moderate L1 compression fracture, with mild loss of height as compared to prior exam. Th ere is advanced degenerative disc narrowing at L1-L2. There is moderate degenerative disc narrowing t he remainder of the lumbar spine. There is moderate to advanced facet arthropathy throughout the lumb ar spine, especially the lower aspect. There is extensive atherosclerotic ossifications aorta. No ins tability seen on flexion or extension. The intervertebral disc spaces are preserved. The sacroiliac joints are normally outlined. Impression: Mild to moderate L1 compression fracture, with mild progressive loss of height since prior exam. Advanced degenerative spondylosis. No instability on flexion or extension. Reviewed, dictated and finalized at [facility]. 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 Advanced degenerative spondylosis. No instability on flexion or extension.
== END 2024-05-29 11:33 | disposition home or self-care (01) ==
PROVIDERS: PCP Family Medicine; Visit Provider Neurological Surgery
DX: S32.010A Wedge compression fracture of first lumbar vertebra, initial encounter for closed fracture (principal); M47.896 Other spondylosis, lumbar region; X58.XXXA Exposure to other specified factors, initial encounter
CPT/HCPCS: 72110

== ENCOUNTER 2024-06-28 12:08 | Outpatient (CLI) | payer MEDICARE, SELFPAY ==
[2024-06-28 13:41] LABS: Basophils Percent Auto 0.2 % (0.2-1.2); Eosinophils Absolute Auto 0.1 K/mm3 (0-0.3); Eosinophils Percent Auto 0.6 % (0-4.4); Hemoglobin 9.3 g/dL (14.0-18.0); Immature Granulocyte Absolute 0.15 K/mm3 (0.00-0.031); Immature Granulocyte Percent A 1.2 % (0-0.5); Mean Corpuscular HGB Conc 28.2 g/dl (32-36); Mean Corpuscular Hemoglobin 23.1 pg (26-34); Mean Corpuscular Volume 82.1 fl (80-100); Mean Platelet Volume 9.4 fl (7.4-10.4); Monocytes Absolute Auto 0.9 K/mm3 (0.1-0.6); Monocytes Percent Auto 6.9 % (2.6-8.5); Neutrophils Absolute Auto 9.9 K/mm3 (1.3-6.7); Neutrophils Percent Auto 79.1 % (45.5-73.1); Nucleated Red Blood Cells Perc 0.2 % (0.0-0.2); Platelet Count Result 322 k/mm3 (150-375); Red Blood Count 4.02 M/mm3 (4.6-6.20); Red Cell Distribution Width 18.1 % (11.5-14.5); White Blood Count 12.5 K/mm3 (4.5-10.0)
[2024-06-28 13:51] LABS: Alanine Aminotransferase 43 U/L (6-50); Albumin Level 3.8 g/dL (3.5-5.1); Alkaline Phosphatase 168 U/L (38-126); Anion Gap 12 mmol/L (4-12); Aspartate Amino Transferase 33 U/L (17-59); Bilirubin,Total 1.3 mg/dL (0.2-1.3); Blood Urea Nitrogen 26 mg/dL (9-20); Calcium 9.2 mg/dL (8.4-10.2); Carbon Dioxide 25 mmol/L (22-30); Chloride 102 mmol/L (98-107); Estimated Glomerular Filt Rate 58; Glucose 86 mg/dL (65-110); Potassium 4.2 mmol/L (3.4-5.0); Sodium 139 mmol/L (137-145)
[2024-06-28 14:01] LABS: NT Pro B Type Natriuretic Pept 243 pg/mL (19.9-100)
[2024-06-28 14:04] LABS: Anisocytosis 1+; Hypochromasia 1+; Platelet Estimate Adequate (Adequate); Schistocytes None Seen
== END 2024-06-28 12:09 | disposition home or self-care (01) ==
DX: I27.21 Secondary pulmonary arterial hypertension (principal); M35.9 Systemic involvement of connective tissue, unspecified; I50.812 Chronic right heart failure; Z79.899 Other long term (current) drug therapy
CPT/HCPCS: 36415; 80053; 83880; 85025

== ENCOUNTER 2024-08-02 12:30 | Outpatient (CLI) | payer MEDICARE, SELFPAY ==
--- OUTSIDE RECORDS SUMMARY | 2024-08-02 12:45 | XMS_ITS | Clinical Summary ---
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 Gender Identity Not on file Sexual Orientation Not on file Plan of Treatment Health Maintenance Due Date Last Done Comments Hepatitis C Virus (HCV) Screening 1945 TdaP Immunization 1945 Zoster Immunization (1 of 2) 07/29/1997 Respiratory Syncytial Virus (RSV) Immunization (Adult) (1 - 1-dose 75+ series) 07/29/2022 SARS-COV-2 Immunization ( season) 2024 Influenza Immunization (Season Ended) 2024 01/29/2020, 02/06/2019, 02/15/2017, Additional history exists Pneumococcal Immunization (50+ years) Completed 06/22/2016, 07/02/2014 Pneumococcal Immunization Combined Discontinued 06/22/2016, 07/02/2014 Hepatitis B Immunization Aged Out No longer eligible based on patient's age to complete this topic Meningococcal Immunization (ACWY) Aged Out No longer eligible based on patient's age to complete this topic Rotavirus Immunization Aged Out No lo nger eligible based on patient's age to complete this topic
--- OUTSIDE RECORDS SUMMARY | 2024-08-02 12:45 | XMS_ITS | Referral Summary ---
Author Organization [facility] [address] Address [address] [place] [address] Care Team Providers Care Fbi Field Agent Name Role Phone Yusuf Quintanilla MD Primary Care Provider [phone] Encounters Date Type Department Care Team Description 08/01/2024 Telephone [facility] Cardiology [address] [place] [address] Taras Ramirez MD 08/01/2024 Telephone [facility] [address] Advanced Medicine 8th [place] [address] [place] [address] Mary Pantoja NP 07/31/2024 Documentation [facility] [address] [address] [facility] Advanced Medicine 8th [place] [address] [place] [phone] Em Harp, [employer] 07/31/2024 1:30 PM CDT Infusion [facility] [address] [place] [phone] Other iron deficiency anemia (Primary Dx) 2024 Telephone [facility] [address] [place] [phone] No, Physician 07/27/2024 Telephone [facility] [address] [place] [phone] Carola Benitez RN 07/24/2024 Telephone [facility] [address] [facility] Advanced Medicine 8th [place] [address] [place] [phone] Mary Pantoja NP 07/20/2024 Orders Only [facility] [address] [place] [phone] Day Snell RN 07/19/2024 Telephone 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); Chronic obstructive pulmonary disease with acute exacerbation (HCC); Chronic right-sided CHF (congestive heart failure) (HCC) Discharge Disposition: Discharge to home or self care 07/19/2024 2:31 PM CDT - 07/19/2024 11:59 PM CDT Hospital Encounter [facility] [address] [place] [phone] 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 [address] [place] [address] [place] [address] Em Harp, [facility] 07/03/2024 Telephone [facility] [address] [place] [address] [place] [address] Day Snell, DIANNA 07/03/2024 Telephone [facility] [address] [place] [address] [place] [address] Day Snell, DIANNA 07/02/2024 Orders Only [address] [place] [address] Day Snell, DIANNA 06/28/2024 Orders Only [facility] PUL[facility] Scanning, Provider 06/28/2024 Telephone [facility] [address] [place] [address] [place] [address] Day Snell, RN 06/28/2024 Orders Only 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 [address] [facility] 8th [place] [address] [place] [address] Day Snell RN 06/22/2024 Documentation [facility] [address] [facility] 8th [place] [address] [place] [address] Em Harp, [facility] 06/21/2024 Documentation [facility] [address] [facility] 8th [place] [address] [place] [phone] Em Harp, [facility] 05/04/2024 3:45 PM [employer] Office Visit [facility] Cardiology at [address] [place] [address] Taras Ramirez MD Hx of CABG (Primary Dx) from Last 3 Months Allergies Active Allergy Reactions Criticality Noted Date Comments Crab Hives High 10/08/2015 Crab meat Medications aspirin 81 mg chewable tablet chew 1 tablet by oral route every day 0 0 6 Active atorvastatin (LIPITOR) 80 mg tablet take 1 tablet by oral route every day 0 0 7 Active citalopram (CeleXA) 20 mg tablet Take 1 tablet (20 mg total) by mouth daily 1 8 Active albuterol HFA (PROVENTIL HFA,VENTOLIN HFA,PROAIR HFA) 90 mcg/actuation inhaler 1 Active mirtazapine (REMERON) 15 mg tablet Take 1 tablet (15 mg total) by mouth nightly 3 Active azithromycin (ZITHROMAX) 500 mg tablet 4 Active predniSONE (DELTASONE) 20 mg tablet Take 1 tablet (20 mg) by mouth Active sildenafiL, pulm.hypertension , (REVATIO) 20 mg tabletIndications :Pulmonary Arterial Hypertension Take 2 tablets (40 mg total) by mouth 3 (three) times a day 180 tablet 11 4 08/24/19 25 Active Opsumit 10 mg tablet Take 1 tablet (10 mg total) by mouth daily 30 tablet 11 4 11/22/19 25 Active furosemide (LASIX) 20 mg tablet Take 1 tablet (20 mg total) by mouth 2 (two) times a day 60 tablet 4 12/28/19 25 Active potassium chloride ER 20 mEq CR tablet Take 1 tablet (20 mEq total) by mouth 2 (two) times a day 60 tablet 4 12/28/19 25 Active HYDROcodone-aceta minophen (NORCO) 5-325 mg per tablet 5 Active methocarbamoL (ROBAXIN) 750 mg tablet Take 1 tablet (750 mg total) by mouth 3 (three) times a day as needed for muscle spasms 5 Active traMADoL (ULTRAM) 50 mg tablet 5 Active spironolactone (ALDACTONE) 25 mg tablet Take 1 tablet (25 mg total) by mouth daily 5 Active Breztri Aerosphere 160-9-4.8 mcg/actuation inhaler INHALE 2 PUFFS TWICE DAILY NEEDED 5 Active Active Problems Problem Noted Date Diagnosed Date ANGELO (iron deficiency anemia) 07/03/2024 Chronic obstructive pulmonar y disease with acute exacerbation 11/29/2023 Pulmonary emphysema 08/23/2023 Chronic right-sided CHF (congestive heart failur e) 05/10/2023 PAH (pulmonary artery hypert ension) with connective tissue disease 01/11/2023 Pulmonary hypertension 08/31/2022 Shortness of breath 08/29/2018 Hx of CABG 02/02/2017 Chronic coronary artery disease 10/03/2015 Overview (08/05/2016): Coronary artery disease PHT (portal hypertension) Social History Tobacco Use Types Packs/Day Years Used Date Smoking Tobacco: Former Cigarettes Q uit: 05/02/2006 Smokeless Tobacco: Never Tobacco Cessation:Counseling Given: Not Answered Comments:Smoking History Packs/day: 1 Packs Alcohol Use Standard Drinks/Week Comments Yes 0 (1 standard drink = 0.6 oz pur e alcohol) AUDIT-C Answer Date Recorded Q1: How often do you have a drink containing alcohol? Never 12/13/2023 Q2: How many drinks containi ng alcohol do you have on a typical day when you are drinking? Patient does not drink Q3: How often do you have si x or more drinks on one occasion? Never 12/13/2023 Hunger Vital Sign Answer Date Recorded Within the past 12 months, y ou worried that your food would run out before you got the money to buy more. Never true 08/01/19 Within the past 12 months, t he food you bought just didn't last and you didn't have money to get more. Never true 07/31/2024 Personal Safety Answer Date Recorded Have you ever been in or are you currently in a harmful physical or emotional relationship or is someone making you feel afraid or unsafe? Denies 07/31/2024 Sex and Gender Information Value Date Recorded Sex Assigned at Not on file Legal Sex Male 8:32 AM [employer] Gender Identity Male 09/02/2020 8:09 AM CDT Sexual Orientation Not on file Last Filed Vital Signs Vital Sign Reading Time Taken Comments Blood Pressure 122/65 07/31/2024 3:15 PM CDT Pulse 73 07/31/2024 3:25 PM CDT Temperature 36.2 C (97.2 F) 07/31/2024 1:15 PM CDT Respiratory Rate 18 07/19/2024 1:26 PM CDT Oxygen Saturation 94% 07/31/2024 3:25 PM CDT Inhaled Oxygen Concentration - - Weight 70.3 kg (155 lb) 07/19/2024 1:26 PM CDT Height 175.3 cm (5' 9 ) 07/19/2024 1:26 PM CDT Body Mass Index 22.89 07/19/2024 1:26 PM CDT Plan of Treatment Not on file Procedures Procedure Name Priority Date/Time Associated Diagnosis Comments TRANSTHORACIC ECHO (TTE) COMPLETE W DOPPLER/CF WO CONTRAST Routine 07/19/2024 4:26 PM CDT 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) Chronic obstructive pulmonary disease with acute exacerbation (HCC) Chronic right-sided CHF (congestive heart failure) (HCC) PULMONARY FUNCTION TEST (PFT) Routine 07/19/2024 1:06 PM CDT 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) Chronic obstructive pulmonary disease with acute exacerbation (HCC) Chronic right-sided CHF (congestive heart failure) (HCC) XR CHEST PA LATERAL 2 VIEWS Schedule Routine, Read Routine (OP Routine) 07/19/2024 12:48 PM CDT 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) Chronic obstructive pulmonary disease with acute exacerbation (HCC) Chronic right-sided CHF (congestive heart failure) (HCC) SCAN - LABS 06/28/2024 from Last 3 Months Results * TRANSTHORACIC ECHO (TTE) COMPLETE W DOPPLER/CF WO CONTRAST (07/19/2024 4:26 PM CDT) Anatomical Region Laterality Modality Ultrasound 07/19/2024 2:53 PM CDT Narrative 07/20/2024 6:42 AM CDT [facility] [place] [address] Transthoracic Echocardiographic Report Patient Name: ONI KO J : 1945 (78y 11m) Gender: M Study Date: 07/19/2024 02:53:43 PM Ht(Inch): 69 Wt(Lb): 154.98 BSA: 1.85 Civil Rights Investigator: Paula Waters Location: [facility] Order Provider: HARISH LARES Heart Rate: 51 BMI: 22.88 Ref Provider: HARISH LARES PROCEDURES: Echocardiographic Report: Transthoracic complete echo, 2D, spectral and tissue Doppler, color flow Doppler, M-mode. Contrast: Unable to obtain IV access. INDICATIONS: I27.21 Secondary pulmonary arterial hypertension, M35.9 Systemic involvement of connective tissue, unspecified, J44.1 Chronic obstructive pulmonary disease with (acute) exacerbation, and I50.812 Chronic right heart failure. CONCLUSIONS: 1. Mildly dilated left ventricle based on volume index. Eccentric LV hypertrophy. Moderately depressed left ventricular systolic function. The Ejection Fraction (March's) is measured at 38 %. Grade II diastolic dysfunction (elevated mean LA pressure). 2. Normal right ventricular size. ATTESTATION: I have personally reviewed and interpreted this study without fellow or resident. DISCLAIMER: The study images and the final report will be retained in the patient chart by the Echo Laboratory for the legally required time period. This chart constitutes the legal record of any testing performed. FINDINGS: Left Ventricle: Mildly dilated left ventricle based on volume index. Eccentric LV hypertrophy. Moderately depressed left ventricular systolic function. The Ejection Fraction (March's) is measured at 38 %. Grade II diastolic dysfunction (elevated mean LA pressure). Unable to assess global longitudinal strain due to image quality. Right Ventricle: Normal right ventricular size. Left Atrium: Mildly dilated left atrium. Right Atrium: The right atrium is normal in size. Mitral Valve: Normal mitral valve structure. No mitral regurgitation. No stenosis present. Aortic Valve: Normal trileaflet aortic valve. Moderately thickened aortic valve leaflets. Mildly restricted aortic cusps. Tricuspid Valve: Normal tricuspid valve structure. No tricuspid regurgitation. PASP cannot be evaluated due to inadequate TR jet. No tricuspid valve stenosis. Pulmonic Valve: Normal pulmonic valve structure. Mild pulmonic regurgitation. Pericardium: Normal pericardium without pericardial effusion. Aorta: Dilation of the aortic root when indexed. Rhythm: Normal Sinus rhythm was seen during the study. MEASUREMENTS: 2D/MM Value Range Doppler Value Range LVIDd 2D 5.43 cm [ 4.20 - 5.80 ] AV Peak Jeovany 1.0 m/s [ 1.0 - 1.7 ] LVIDs 2D 3.69 cm [ 2.50 - 4.00 ] AV Peak PG 4.00 mmHg IVSd 2D 1.05 cm [ 0.60 - 1.00 ] AV Mean PG 2 mmHg LVPWd 2D 1.13 cm [ 0.60 - 1.00 ] AV VTI 24.2 cm LV Thickness Ratio 0.9 LVOT Peak Jeovany 1.0 m/s [ 0.7 - 1.1 ] LV FS 2D 32.01 % [ 25.00 - 43.00 ] LVOT Peak PG 4.00 mmHg LV Mass 2D 239.19 g LVOT Mean PG 2 mmHg LV Mass Index 2D 129.29 g/m2 LVOT VTI 19.1 cm RWT 0.42 LVOT Diam 2.04 cm EDV Mod BP 145.25 ml [ 62.00 - 150.00 ] KAYLA VTI 2.58 cm2 LV EDV Index 78.51 ml/m2 LVOT/AV VTI 0.79 - Dimensionless index (DVI) ESV Mod BP 89.59 ml [ 21.00 - 61.00 ] MV E Peak Jeovany 0.6 m/s [ 0.6 - 1.3 ] EF Mod BP 38 % [ 52 - 72 ] MV A Peak Jeovany 0.7 m/s [ 1.0 - 1.2 ] LA Length 4C 5.51 cm MV E/A 0.8 ratio [ 0.8 - 1.5 ] LA Length 2C 4.08 cm MV Decel Time 262.23 msec [ 104.00 - 258.00 ] LA Volume BP 65.43 ml Med E` Jeovany 5.9 cm/sec [ 8.0 - 25.0 ] LA Volume Index 35.37 ml/m2 [ 16.00 - 34.00 ] Lat E` Jeovany 4.7 cm/sec [ 10.0 - 25.0 ] RV Base Dimen 2D 3.3 cm [ 2.5 - 4.2 ] Average E/E` 11.32 TAPSE 1.59 cm [ 1.71 - 5.00 ] RV S` 14.94 cm/sec RA Volume 40.74 ml TR Peak Jeovany 3.3 m/s [ 1.0 - 2.8 ] RA Volume Index 22.02 ml/m2 TR Peak PG 43.6 mmHg AoR Diam 2D 3.74 cm [ 3.10 - 3.70 ] PI Peak Jeovany 2.4 m/s Ao Root Index 2.02 cm/m2 [ 1.00 - 2.00 ] PI ED Jeovany 123.45 m/sec PI Peak PG 24 mmHg PI PHT 420.97 sec Electronically Signed By: Lucio Tran MD 07/20/2024 6:41:36 AM CDT Procedure Note Lucio Tran MD - 07/20/2024 [facility] Card[place] [address] Transthoracic Echocardiographic Report Patient Name: ONI KO J : 1945 (78y 11m) Gender: M Study Date: 07/19/2024 02:53:43 PM Ht(Inch): 69 Wt(Lb): 154.98 BSA: 1.85 Civil Rights Investigator: Paula Waters Location: [facility] Order Provider:HARISH LARES Heart Rate: 51 BMI: 22.88 Ref Provider: HARISH LARES PROCEDURES: Echocardiographic Report: Transthoracic complete echo, 2D, spectral andtissue Doppler, color flow Doppler, M-mode. Contrast: Unable to obtain IV access. INDICATIONS: I27.21 Secondary pulmonary arterial hypertension, M35.9 Systemicinvolvement of connective tissue, unspecified, J44.1 Chronic obstructive pulmonarydisease with (acute) exacerbation, and I50.812 Chronic right heart failure. CONCLUSIONS: 1. Mildly dilated left ventricle based on volume index. Eccentric LVhypertrophy. Moderately depressed left ventricular systolic function. The EjectionFraction (March's) is measured at 38 %. Grade II diastolic dysfunction (elevatedmean LA pressure). 2. Normal right ventricular size. ATTESTATION: I have personally reviewed and interpreted this study without fellow orresident. DISCLAIMER: The study images and the final report will be retained in the patientchart by the Echo Laboratory for the legally required time period. This chart constitutesthe legal record of any testing performed. FINDINGS: Left Ventricle: Mildly dilated left ventricle based on volume index.Eccentric LV hypertrophy. Moderately depressed left ventricular systolic function. TheEjection Fraction (March's) is measured at 38 %. Grade II diastolic dysfunction(elevated mean LA pressure). Unable to assess global longitudinal strain due to imagequality. Right Ventricle: Normal right ventricular size. Left Atrium: Mildly dilated left atrium. Right Atrium: The right atrium is normal in size. Mitral Valve: Normal mitral valve structure. No mitral regurgitation. Nostenosis present. Aortic Valve: Normal trileaflet aortic valve. Moderately thickened aorticvalve leaflets. Mildly restricted aortic cusps. Tricuspid Valve: Normal tricuspid valve structure. No tricuspidregurgitation. PASP cannot be evaluated due to inadequate TR jet. No tricuspid valvestenosis. Pulmonic Valve: Normal pulmonic valve structure. Mild pulmonicregurgitation. Pericardium: Normal pericardium without pericardial effusion. Aorta: Dilation of the aortic root when indexed. Rhythm: Normal Sinus rhythm was seen during the study. MEASUREMENTS: 2D/MM Value Range DopplerValue Range LVIDd 2D 5.43 cm [ 4.20 - 5.80 ] AV Peak Vel1.0 m/s [ 1.0 - 1.7 ] LVIDs 2D 3.69 cm [ 2.50 - 4.00 ] AV Peak PG4.00 mmHg IVSd 2D 1.05 cm [ 0.60 - 1.00 ] AV Mean PG2 mmHg LVPWd 2D 1.13 cm [ 0.60 - 1.00 ] AV VTI24.2 cm LV Thickness Ratio 0.9 LVOT Peak Vel1.0 m/s [ 0.7 - 1.1 ] LV FS 2D 32.01 % [ 25.00 - 43.00 ] LVOT Peak PG4.00 mmHg LV Mass 2D 239.19 g LVOT Mean PG2 mmHg LV Mass Index 2D 129.29 g/m2 LVOT VTI19.1 cm RWT 0.42 LVOT Diam2.04 cm EDV Mod BP 145.25 ml [ 62.00 - 150.00 ] KAYLA VTI2.58 cm2 LV EDV Index 78.51 ml/m2 LVOT/AV VTI0.79 - Dimensionless index (DVI) ESV Mod BP 89.59 ml [ 21.00 - 61.00 ] MV E Peak Vel0.6 m/s [ 0.6 - 1.3 ] EF Mod BP 38 % [ 52 - 72 ] MV A Peak Vel0.7 m/s [ 1.0 - 1.2 ] LA Length 4C 5.51 cm MV E/A0.8 ratio [ 0.8 - 1.5 ] LA Length 2C 4.08 cm MV Decel Mklr851.23 msec [ 104.00 - 258.00 ] LA Volume BP 65.43 ml Med E` Vel5.9 cm/sec [ 8.0 - 25.0 ] LA Volume Index 35.37 ml/m2 [ 16.00 - 34.00 ] Lat E` Vel4.7 cm/sec [ 10.0 - 25.0 ] RV Base Dimen 2D 3.3 cm [ 2.5 - 4.2 ] Average E/E`11.32 TAPSE 1.59 cm [ 1.71 - 5.00 ] RV S`14.94 cm/sec RA Volume 40.74 ml TR Peak Vel3.3 m/s [ 1.0 - 2.8 ] RA Volume Index 22.02 ml/m2 TR Peak PG43.6 mmHg AoR Diam 2D 3.74 cm [ 3.10 - 3.70 ] PI Peak Vel2.4 m/s Ao Root Index 2.02 cm/m2 [ 1.00 - 2.00 ] PI ED Nng489.45 m/sec PI Peak PG 24 mmHg PI PHT 420.97 sec Electronically Signed By: Lucio Tran MD 07/20/2024 6:41:36 AM CDT Harish Lares MD CV ECHO PROCEDURES Final Result * Pulmonary Function Test - (07/19/2024 1:06 PM CDT) FVC PRE 3.[address] [facility] FVC %PRE PRED 83 % [facility] FEV1 PRE 1.[address] [facility] FEV1 %PRE PRED 50 % [facility] FEV1/FVC PRE 44.7 % [facility] Anatomical Region Laterality Modality PFT 07/19/2024 12:5 7 PM CDT Narrative 07/19/2024 1:28 PM CDT PFT performed at:->[facility] Adult PFT [facility]- [id number] Procedure:->Spirometry Pulmonary Function Test Interpretation SPIROMETRY: There is a decrease in expiratory airflow at all lung volumes. The inspiratory loop is appropriate for the expiratory flow abnormality. Impression: There is a moderately severe obstructive defect. Compared with most recent study, there has been significant interval worsening of the obstructive ventilatory defect. The attending pulmonary physician certifies a physician presence in the [facility] Suite during the administration of aerosolized bronchodilator. The attending pulmonary physician certifies that he/she has reviewed and interpreted the graphic and numerical data of this pulmonary function study and agrees with the written final report. The lower limit of normal for PaO2 and %HbO2 is age dependent. However, the [facility] Function [facility] defines hypoxemia as a PaO2 <56 mm Hg or a %HbO2 <89%. Starting on May of 2024 the [facility] Function Laboratory utilizes race neutral GLI Global normative equations. us Harish Lares MD PFT ORDERABLES Final Res ult * XR Chest Pa Lateral 2 Views (07/19/2024 12:48 PM CDT) Anatomical Region Laterality Modality Body, Chest N/A Computed Radiogr aphy 07/19/2024 4:40 PM CDT Impressions 07/19/2024 4:40 PM CDT Comparison 08/31/2022. Median sternotomy wires are aligned and intact. Partially calcified pulmonary nodule again seen, corresponding to finding on computed tomographic examination on 09/10/2022. Patchy airspace opacities and nodular opacities within the right lower lobe on the prior computed tomographic examination not definitely seen. However more accurate determination of interval change can be obtained with repeat computed tomographic examination. Minimal left basilar atelectasis or scarring again noted. No pneumothorax or pleural effusion seen. Cardiomediastinal silhouette stable. Mild compression deformities several lower thoracic vertebral bodies seen, new since the prior examination. Electronically signed by: Julian Stephens M.D. Narrative 07/19/2024 4:40 PM CDT EXAMINATION: 2 view chest radiograph Procedure Note Julian Stephens MD - 07/19/2024 EXAMINATION: 2 view chest radiograph IMPRESSION: Comparison 08/31/2022. Median sternotomy wires are aligned and intact. Partially calcified pulmonary nodule again seen, corresponding to finding on computed tomographic examination on 09/10/2022. Patchy airspace opacities and nodular opacities within the right lower lobe on the prior computed tomographic examination not definitely seen. However more accurate determination of interval change can be obtained with repeat computed tomographic examination. Minimal left basilar atelectasis or scarring again noted. No pneumothorax or pleural effusion seen. Cardiomediastinal silhouette stable. Mild compression deformities several lower thoracic vertebral bodies seen, new since the prior examination. Electronically signed by: Julian Stephens M.D. Harish Lares MD IMG XR PROCEDURES Final R esult * SCAN - LABS (06/28/2024) us Provider Scanning Final Result from Last 3 Months Insurance [employer] MED[employer]ARE [facility] MEDICARE Address: [facility] [id number] [place] [address] [employer] MED[employer]ARE Advance Directives For more information, please contact: [phone] * Full Code (Latest Code Status on File) Date Activated Date Inactivated Comments 12/13/2023 3:04 PM 12/13/2023 7:21 PM * Full Code Date Activated Date Inactivated Comments 09/10/2022 11:20 AM 09/10/2022 4:40 PM Care Teams [employer] Field Agent Relationship Specialty Start Date End Date Yusuf Quintanilla MD [address] [place] [id number] PCP - General 10/03/15
--- OUTSIDE RECORDS SUMMARY | 2024-08-02 12:45 | XMS_ITS | Encounter Summary ---
Author Organization [facility] Address [address] [place] [address] Care Team Providers Care Bottled Beverage Inspector Name Role Phone Unavailable Primary Care Provider Unavailabl e Encounter Details Date Type Department Care Team (Late st Contact Info) Description 05/25/2018 Lab Requisition [facility] Care DermPath Lab [address] [facility], [place] [address] Court Benton MD [address] [facility] 3 [place] [address] Social History Tobacco Use Types Packs/Day Years Used Date Smoking Tobacco: Never Assessed Sex and Gender Information Value Date Recorded Sex Assigned at Not on file Gender Identity Not on file Sexual Orientation Not on file documented as of this encounter Plan of Treatment Not on file documented as of this encounter Procedures Procedure Name Priority Date/Time Associated Diagnosis Comments DERMATOPATH TECHNICAL REPORT Routine 05/24/2018 12:00 AM CASH MANAGEMENT OFFICER documented in this encounter Results * DERMATOPATH TECHNICAL REPORT (05/24/2018 12:00 AM CASH MANAGEMENT OFFICER) Case Report Dermatopathology Report Case: [id number] Authorizing Provider: Court Benton MD Collected: 05/24/2018 12:00 AM Pathologist: Marcelino Joshi MD Received: 05/25/2018 08:31 AM Specimen: Skin, left NLF corner of mouth 9 2:24 PM CASH MANAGEMENT OFFICER DERMATOPATHOLOGY LABORATORY Clinical History R/O BCC, non-healing. 9 2:24 PM CASH MANAGEMENT OFFICER DERMATOPATHOLOGY LABORATORY Gross Description Specimen A: Received is one formalin filled container labeled with the patient's name and designated left NLF corner of mouth. The specimen consists of a shave measuring [id number]. Jar 0. [facility] Dermatopathology Laboratory performed the technical component only. 9 2:24 PM CASH MANAGEMENT OFFICER DERMATOPATHOLOGY LABORATORY Embedded Images 9 2:[address] [facility] DERMATOPATHOLOGY LABORATORY DISCLAIMER An external and internal positive and negative controls are appropriate for the histochemical, immunohistochemical and immunofluorescence stain(s) in this case (if any), except where stated explicitly. The performance characteristics of the stain(s) cited in this report were developed and its performance characteristic determined by the Dermatopathology Laboratory at [facility], directed by Dr. Jolie Joshi. These tests need not be, and therefore are not, approved by the [place] Food and Drug Administration. The tests are used for clinical purposes. 9 2:[address] [facility] DERMATOPATHOLOGY LABORATORY Pathology/Cytolog y TISSUE SPECIMEN FROM SKIN / Unknown 05/24/2018 05/25/2018 8:31 AM CASH MANAGEMENT OFFICER Court Benton MD LAB - PATHOLOGY/CYT OLOGY ORDERABLES DERMATOPATHOLOGY LABORATORY [facility] - Department of Dermatology [address] [facility], 5th [place] [address], [place] [phone] documented in this encounter Visit Diagnoses Not on filedocumented in this encounter
--- OUTSIDE RECORDS SUMMARY | 2024-08-02 12:45 | XMS_ITS | Encounter Summary ---
Author Organization [facility] Address [address] [place] [address] Care Team Providers Care Licensed Aircraft Maintenance Engineer Name Role Phone Yusuf Quintanilla MD Primary Care Provider [phone] Encounter Details Date Type Department Care Team (Late st Contact Info) Description 07/27/2024 Telephone [facility] Outpatient Infusion Center [address] [facility] [address] [place] [phone] Carola Benitez RN Social History Tobacco Use Types Packs/Day Years Used Date Smoking Tobacco: Former Cigarettes Q uit: 05/02/2006 Smokeless Tobacco: Never Comments:Smoking History Pac ks/day: 1 Packs Alcohol Use Standard Drinks/Week Comments [...] money to buy more. 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
--- OUTSIDE RECORDS SUMMARY | 2024-08-02 12:45 | XMS_ITS | Clinical Summary ---
Author Organization [facility] [address] Address [address] [place] [address] Care Team Providers Care Painter Touch Up Name Role Phone Yusuf Quintanilla MD Primary Care Provider [phone] Allergies Active Allergy Reactions Criticality Noted Date [...] (08/05/2016): Coronary artery disease PHT (portal hypertension) Encounters Date Type Department Care Team Description 08/01/2024 Telephone [facility] Cardiology [address] [place] [address] Taras Ramirez MD 08/01/2024 Telephone [facility] Pulmonary [address] [facility] 8th [place] [address] [place] [phone] Mary Pantoja NP 07/31/2024 1:30 PM CDT Infusion [facility] Outpatient Infusion Center [address] [facility] [address] [place] [phone] Other iron deficiency anemia (Primary Dx) 07/31/2024 Documentation [facility] Pulmonary [address] [facility] 8th [place] [phone] Em Harp, ALYSON 2024 Telephone [facility] Outpatient Infusion Center [address] [facility] [address] [place] [phone] No, Physician 07/27/2024 Telephone [facility] Outpatient Infusion Center [address] [facility] [address] [place] [phone] Carola Benitez, DIANNA 07/24/2024 Telephone [facility] Pulmonary [address] [place] [address] [place] [phone] Mary Pantoja NP 07/20/2024 Orders Only [facility] Outpatient Infusion Center [address] [facility] [address] [phone] Day Snell RN 07/19/2024 2:31 PM CDT - 07/19/2024 11:59 PM CDT Hospital Encounter [facility] Cardiac Diagnostic Lab [address] [place] [phone] 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); Chronic obstructive pulmonary disease with acute exacerbation (HCC); Chronic right-sided CHF (congestive heart failure) (HCC) Discharge Disposition: Discharge to home or self care 07/19/2024 1:50 PM CDT Office Visit [facility] [address] [place] [address] 8th [place] [phone] Mary Pantoja NP 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) 07/19/2024 12:54 PM CDT - 07/19/2024 11:59 PM CDT Hospital Encounter [facility] [address] [address] 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); Chronic obstructive pulmonary disease with acute exacerbation (HCC); Chronic right-sided CHF (congestive heart failure) (HCC) Discharge Disposition: Discharge to home or self care 07/19/2024 12:37 PM CDT - 07/19/2024 11:59 PM CDT Hospital Encounter [facility] [address] [place] [address] 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); Chronic obstructive pulmonary disease with acute exacerbation (HCC); Chronic right-sided CHF (congestive heart failure) (HCC) Discharge Disposition: Discharge to home or self care 07/19/2024 Telephone [facility] Medicine 8th [place] [address] [place] [phone] Day Snell, RN Prior Auth ( IV feraheme) 07/19/2024 Orders Only [facility] Outpatient Infusion Center [address] [facility] [address] [place] [address] Day Snell, DIANNA 07/06/2024 Documentation [facility] [address] [facility] 8th [place] [address] [place] [phone] Em Harp, [facility] 07/03/2024 Telephone [facility] [address] [facility] 8th [place] [address] [place] [address] Day Snell, RN 07/03/2024 Telephone [facility] [address] [facility] 8th [place] [address] [place] [address] Day Snell, RN 07/02/2024 Orders Only [facility] [address] 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); Chronic right-sided CHF (congestive heart failure) (HCC); High risk medication use 06/27/2024 3:00 PM FISHER OYSTER Telemedicine [facility] [address] [place] [address] 8th [place] [address] [place] [address] Harish Lares MD 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); Chronic obstructive pulmonary disease with acute exacerbation (HCC); Chronic right-sided CHF (congestive heart failure) (HCC) 06/22/2024 Telephone [facility] [address] [place] [address] 8th [place] [address] [place] [address] Day Snell RN 06/22/[address] 8th [place] [address] [place] [address] Em Harp, [facility] 06/21/[address] 8th [place] [address] [place] [address] Em Harp, [facility] 05/04/2024 3:45 PM FISHER OYSTER Office Visit [facility] Medical [facility] Cardiology at [address] [place] [address] Taras Ramirez MD Hx of CABG (Primary Dx) from Last 3 Months Surgical History Surgery Date Site/Laterality Comments CORONARY ARTERY BYPASS GRAFT 10/21/2015 CARDIAC CATHETERIZATION 09/10/2022 CATARACT EXTRACTION 2021 LASIK medication taken daily Medical History Medical History Date Comments Hypertension Hypertension Hx Other Medical dyslipidemia Chronic obstructive pulmonar y disease (HCC) COPD Hypercholesterolemia High choles terol; Comments: AMB 10/03/2015 - Chronic coronary artery disease Coronary artery disease Hx Other Medical Raynaud's; Comm ents: AMB 10/03/2015 - Heart disease Thyroid disease Covid-2019 CHF (congestive heart failur e) (HCC) Spinal stenosis Sleep apnea Cancer (HCC) skin cancer Cataract surgery complete on both eyes Chronic bronchitis (HCC) Depression Emphysema of lung (HCC) Family History Medical History Relation Name Comments Alcohol abuse Father Sandip Ko Hypertension Father Sandip Ko Hypertension; Stroke Father Sandip Ko Stroke; Alcohol abuse Mother Mary Ko Relation Name Status Comments Father Sandip Ko Mother Mary Ko Social History Tobacco Use Types Packs/Day Years [...] on file 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 Gender Identity Male 09/02/2020 8:09 AM CDT Sexual Orientation Not on file Obstetrics History Last Filed Vital Signs Vital Sign Reading [...] 07/19/2024 1:26 PM CDT Plan of Treatment Health Maintenance Due Date Last Done Comments Depression Screening 1945 Hepatitis C Screening 1945 DTaP/Tdap/Td Vaccine (1 - Tdap) 07/29/1958 Hepatitis B Screening 07/29/1965 Zoster Vaccine (1 of 2) 07/29/1997 Abdominal Aortic Aneurysm (A AA) Screen 07/29/2012 Well Visit 65+ 07/29/2012 Fall Risk Assessment 12/12/2024 12/13/2023, 03/04/20 Influenza Vaccine (Season Ended) 2024 02/06/2019, 02/15/2017, 02/04/2016, Additional history exists Pneumococcal vaccine 65+ Completed 06/22/2016, 06/2014 Procedures Procedure Name Priority Date/Time Associated Diagnosis [...] PM CDT Narrative 07/20/2024 6:[address] [facility] [place] [address] Transthoracic Echocardiographic Report Patient Name: ONI KO J : 1945 (78y 11m) Gender: M Study Date: 07/19/2024 02:53:43 PM Ht(Inch): 69 Wt(Lb): 154.98 BSA: 1.85 Calender Operator Helper: Paula Waters Location: [facility] Order Provider: HARISH LARES Heart Rate: 51 [...] Procedure Note Lucio Tran MD - 07/20/2024 [facility] [place] [address] Transthoracic Echocardiographic Report Patient Name: ONI KO J : 1945 (78y 11m) Gender: M Study Date: 07/19/2024 02:53:43 PM Ht(Inch): 69 Wt(Lb): 154.98 BSA: 1.85 Calender Operator Helper: Paula Jt Location: [facility] Order Provider:GREG LARESALI Heart Rate: 51 BMI: 22.88 Ref Provider: [...] LA Length 2C 4.08 cm MV Decel Oveo614.23 msec [ 104.00 - 258.00 ] LA [...] [ 1.00 - 2.00 ] PI ED Lxz002.45 m/sec PI Peak PG 24 mmHg PI PHT 420.97 sec Electronically Signed By: Lucio Tran MD 07/20/2024 6:41:36 AM CDT us Harish Lares MD CV ECHO PROCEDURES Final Result * Pulmonary Function Test - (07/19/2024 1:06 PM CDT) FVC PRE 3.10 L [facility] FVC %PRE PRED 83 % [facility] FEV1 PRE 1.39 L [facility] FEV1 %PRE PRED 50 % [facility] FEV1/FVC PRE 44.7 % [facility] Anatomical Region Laterality Modality PFT 07/19/2024 12:5 7 PM CDT Narrative 07/19/2024 1:28 PM CDT PFT performed at:->[facility] Adult PFT Lab- [id number] Procedure:->Spirometry Pulmonary Function [...] and %HbO2 is age dependent. However, the [facility] Pulmonary Function Laboratory defines hypoxemia as a PaO2 <56 mm Hg or a %HbO2 <89%. Starting on May of 2024 the [facility] Pulmonary Function Laboratory utilizes race neutral GLI [...] examination. Electronically signed by: Julian Stephens M.D. Result [facility] Harish Lares MD IMG XR PROCEDURES Final R esult * SCAN - LABS (06/28/2024) Provider Scanning Final Result from Last 3 Months Insurance [employer] MEDICARE [facility] MEDICARE [employer] MEDICARE Advance Directives For more information, please contact: [phone] * Full Code (Latest Code Status on File) Date Activated Date Inactivated Comments 12/13/2023 3:04 PM 12/13/2023 7:21 PM * Full Code Date Activated Date Inactivated Comments 09/10/2022 11:20 AM 09/10/2022 4:40 PM Care Teams Painter Touch Up Relationship Specialty Start Date End Date Yusuf Quintanilla MD [address] [place] [address] PCP - General 10/03/15
--- OUTSIDE RECORDS SUMMARY | 2024-08-02 12:45 | XMS_ITS | Encounter Summary ---
Author Organization [facility] Address [address] [facility] [place] [address] Care Team Providers Care Silk Screen Layout Drafter Name Role Phone Unavailable Primary Care Provider Unavailabl e Encounter Details Date Type Department Care Team (Late st Contact Info) Description 08/31/2023 Lab Requisition [facility] - DermPath Lab [address] [facility] [place] [address] Court Benton MD [address] [facility] [address]L [place] [address] Social History Tobacco Use Types Packs/Day Years Used Date Smoking Tobacco: Never Assessed Sex and Gender Information Value Date Recorded Sex Assigned at Not on file Gender Identity Not on file Sexual Orientation Not on file documented as of this encounter Plan of Treatment Not on file documented as of this encounter Procedures Procedure Name Priority Date/Time Associated Diagnosis Comments DERMATOPATHOLOGY Routine 08/29/2023 3:33 AM CDT documented in this encounter Results * DERMATOPATHOLOGY (08/29/2023 3:33 AM CDT) Case Report Dermatopathology Report Case: [id number] Authorizing Provider: Court Benton MD Collected: 08/29/2023 03:33 AM Ordering Location: [facility] Physician [facility] - Received: 08/31/2023 01:12 PM DermPath Lab Pathologist: Jaida Duff MD Specimen: Skin, left superior helix 2:23 PM CDT DERMATOPATHOLOGY LABORATORY Final Diagnosis Specimen A. SKIN, left superior helix: BASAL CELL CARCINOMA, NODULAR TYPE (C44.219) 4 2:23 PM CDT DERMATOPATHOLOGY LABORATORY Clinical History Non-healing, Irritated, R/o BCC 4 2:23 PM CDT DERMATOPATHOLOGY LABORATORY Gross Description Specimen A: Received is one formalin filled container labeled with the patient's name and designated left superior helix. The specimen consists of two (2) pieces of a shave biopsy measuring 5x4x1, 4x2x1 mm. Jar 0. 2:23 PM T DERMATOPATHOLOGY LABORATORY Microscopic Description Specimen A. SKIN, left superior helix: Within the dermis there are aggregates of basaloid cells with a high nuclear to cytoplasmic ratio and peripheral palisading. 2:23 PM T DERMATOPATHOLOGY LABORATORY Disclaimer An external and internal positive and negative controls are appropriate for the histochemical, immunohistochemical and immunofluorescence stain(s) in this case (if any), except where stated explicitly. The performance characteristics of the stain(s) cited in this report were developed and its performance characteristic determined by the Dermatopathology Laboratory at [facility], directed by Dr. Jolie Joshi. These tests need not be, and therefore are not, approved by the [place] Food and Drug Administration. The tests are used for clinical purposes. Billing Codes Specimen Charges Stain Charges 71701 1 4 2:23 PM CDT DERMATOPATHOLOGY LABORATORY Embedded Images 2:23 PM CDT DERMATOPATHOLOGY LABORATORY Pathology/Cytolo gy TISSUE SPECIMEN FROM SKIN / Unknown 08/29/2023 3:33 AM CDT 08/31/2023 1:[address] Benton MD LAB - PATHOLOGY/CYT OLOGY ORDERABLES DERMATOPATHOLOGY LABORATORY [facility] - Department of Dermatology [facility] Medicine [address] [place] [address], [address]rd Floor [address] [phone] documented in this encounter Visit Diagnoses Not on filedocumented in this encounter
--- OUTSIDE RECORDS SUMMARY | 2024-08-02 12:45 | XMS_ITS | Clinical Summary ---
Author Organization [facility] Address [address] [facility] [place] [address] Care Team Providers Care Excelsior Machine Operator Name Role Phone Unavailable Primary Care Provider Unavailabl e Source Comments [facility],non-owned Affiliates and Associated Physician Practices is amultiple site organization consisting of ambulatory clinics and hospital sitesin [place], [place], [place] and [place]. This disclosure is being madepursuant to the Care Everywhere program and may not contain all information available regarding this patient. Last updated 18.[facility] Social History Tobacco Use Types Packs/Day Years Used Date Smoking Tobacco: Never Assessed Sex and Gender Information Value Date Recorded Sex Assigned at Not on file Gender Identity Not on file Sexual Orientation Not on file Plan of Treatment Health Maintenance Due Date Last Done Comments HEPATITIS C SCREENING 07/25/1965 DTAP/TDAP/TD VACCINES (1 - Tdap) 07/29/1966 PNEUMOCOCCAL VACCINE 50+ (1 of 1 - PCV) 07/29/1997 ZOSTER VACCINE (1 of 2) 07/29/1997 Respiratory Syncytial Virus (RSV) Vaccine Pt: or over 60 yrs (1 - 1-dose 75+ series) 07/29/2022 COVID-19 VACCINE ( - 2023-2 5 season) 2024 INFLUENZA VACCINE (#1) 2024 DEPRESSION SCREENING 05/02/2024 MEDICARE AWV CALENDAR YEAR 2024 HEPATITIS B VACCINE Aged Out No longe r eligible based on patient's age to complete this topic HIB VACCINE Aged Out No longer eligi ble based on patient's age to complete this topic HPV VACCINE Aged Out No longer eligi ble based on patient's age to complete this topic MENINGOCOCCAL (Group B) VACC INE SHARED DECISION-MAKING Aged Out No longer eligibl e based on patient's age to complete this topic MENINGOCOCCAL GROUPS A/C/Y/W VACCINE Aged Out No longer eligible b ased on patient's age to complete this topic
--- OUTSIDE RECORDS SUMMARY | 2024-08-02 12:45 | XMS_ITS | Encounter Summary ---
Author Organization [facility] Address [address] [facility] [place] [address] Care Team Providers Care Well Logging Captain Mud Analysis Name Role Phone Unavailable Primary Care Provider Unavailabl e Encounter Details Date Type Department Care Team (Late st Contact Info) Description 09/02/2023 Lab Requisition [facility] - DermPath Lab [address] [facility] [place] [address] Court Benton MD [address] [facility] [address] [place] [address] Social History Tobacco Use Types Packs/Day Years [...]
--- OUTSIDE RECORDS SUMMARY | 2024-08-02 12:45 | XMS_ITS | Encounter Summary ---
Author Organization [facility] Address [address] [place] [address] Phone Care Team Providers Care Entry Level Software Engineer Name Role Phone Yusuf Quintanilla MD Primary Care Provider [phone] Encounter Details Date Type Department Care Team (Latest Contact Info) Description 06/28/2024 Orders Only [facility] Scanning, Provider Social History Tobacco Use Types Packs/Day Years [...] more drinks on one occasion? Never 12/13/2023 Personal Safety Answer Date Recorded Have you ever been in or are you currently in a harmful physical or emotional relationship or is someone making you feel afraid or unsafe? 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 Gender Identity Male 09/02/2020 8:09 AM CDT Sexual Orientation Not on file documented as of this encounter Plan of Treatment Not on file documented as of this encounter Procedures Procedure Name Priority Date/Time Associated Diagnosis Comments SCAN - LABS 06/28/2024 documented in this encounter Results * SCAN - LABS (06/28/2024) us Provider Scanning Final Result documented in this encounter Visit Diagnoses Not on filedocumented in this encounter Care Teams Entry Level Software Engineer Relationship Specialty Start Date End Date Yusuf Quintanilla MD [address] [place] [address] PCP - General 10/03/15 documented as of this encounter
--- OUTSIDE RECORDS SUMMARY | 2024-08-02 12:45 | XMS_ITS | Clinical Summary ---
Author Organization [facility] Address [address] [place] [address] Phone Care Team Providers Care Animal Caretaker Supervisor Name Role Phone Yusuf Quintanilla MD Primary Care Provider [phone] Allergies Active Allergy Reactions Criticality Noted Date Comments Crab Hives High 10/08/2015 Medications atorvastatin (LIPITOR) 80 mg tablet Take 80 mg by mouth daily at bedtime . 08/29/2015 Active fenofibrate micronized (LOFIBRA) 134 mg Capsule Take 134 mg by mouth daily at bedtime . 09/01/2015 Active carvedilol (COREG) 3.125 mg tablet Take 1 Tablet (3.125 mg) by mouth every 12 hours. 60 Tablet 1 10/27/2015 Active aspirin (ECOTRIN EC) 325 mg Tablet, Delayed Release (E.C.) Take 1 Tablet (325 mg) by mouth daily with breakfast. 10/27/2015 Active lisinopril (PRINIVIL) 2.5 mg tablet Take 1 Tablet (2.5 mg) by mouth daily. 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 10/09/2015 Family History Medical History Relation Name Comments Stroke Father Relation Name Status Comments Father Social History Tobacco Use Types Packs/Day Years Used Date Smoking Tobacco: Former Cigarettes 1 35 0 10/07/1970 - 10/07/2005 Alcohol Use Standard Drinks/Week Comments Yes 0 (1 standard drink = 0.6 oz pur e alcohol) social Sex and Gender Information Value Date Recorded Sex Assigned at Not on file Legal Sex Male 3:18 PM CDT Gender Identity Not on file Sexual Orientation Not on file Last Filed Vital Signs Vital Sign Reading Time Taken Comments Blood Pressure 114/60 11/27/2015 10:26 AM CDT Pulse 76 11/27/2015 10:26 AM CDT Temperature 37 C (98.6 F) 10/27/2015 2:00 PM CDT Respiratory Rate 18 11/27/2015 10:26 AM CDT Oxygen Saturation 96% 11/27/2015 10:26 AM CDT Inhaled Oxygen Concentration - - Weight 80.7 kg (178 lb) 11/27/2015 10:26 AM CDT Height 182.9 cm (6') 11/27/2015 10:26 AM CDT Body Mass Index 24.14 11/27/2015 10:26 AM CDT Plan of Treatment Health Maintenance Due Date Last Done Comments DTAP/TDAP/TD VACCINES (1 - Tdap) 07/29/1966 PNEUMOCOCCAL VACCINE 50+ YEARS (1 of 2 - PCV) 07/29/18 67 ZOSTER VACCINE (1 of 2) 07/29/1997 RSV VACCINE (60+ or ) (1 - 1-dose 75+ series) 07/29/2022 INFLUENZA VACCINE (#1) 2023 Medical Devices Implanted Type Area Television Cameraman Device Identifier Shelf Expiration Date Model / Serial / Lot Pledget Ptfe 6x6mm [id number] - [id number] Implanted:Qty: 1 on 10/21/2015 by Marce Orr MD at [facility] N/A: Chest CR [employer] 06/29/2020 [id number] / / [id number] [place] [address] MEDICARE Advance Directives For more information, please contact: [phone] Documents on File Type Date Recorded Patient 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
--- OUTSIDE RECORDS SUMMARY | 2024-08-02 12:45 | XMS_ITS | Encounter Summary ---
Author Organization [facility] Address [address] [place] [address] Phone Care Team Providers Care Hoistman Name Role Phone Yusuf Quintanilla MD Primary Care Provider [phone] Encounter Details Date Type Department Care Team (Late st Contact Info) Description 08/01/2024 Telephone [facility] Pulmonary [address] [facility] Advanced Medicine 8th [place] [address] [place] [address] Mary Pantoja NP [address] [place] [address] Social History Tobacco Use Types Packs/Day Years [...] on file 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 Still waiting on his blood pressure cuff to arrive. Had iron infusion on 07/31/24 and his BP was 122/70. Current weight = 148 pounds Continues to be limited by back pain and shortness of breath. Asked patient to call Dr. Ramirez's office to try to get a sooner appointment. documented in this encounter Plan of Treatment Not on file documented as of this encounter Visit Diagnoses Not on filedocumented in this encounter Care Teams Hoistman Relationship Specialty Start Date End Date Yusuf Quintanilla MD [address] [place] [address] PCP - General 10/03/15 documented as of this encounter
--- OUTSIDE RECORDS SUMMARY | 2024-08-02 12:45 | XMS_ITS | Encounter Summary ---
Author Organization [facility] Address [address] [place] [address] Care Team Providers Care Fence Making Machine Operator Name Role Phone Yusuf Quintanilla MD Primary Care Provider [phone] Encounter Details Date Type Department Care Team (Late st Contact Info) Description 08/01/2024 Telephone [facility] Cardiology [address] [facility] [address] [place] [id number] Taras Ramirez MD [address] [facility] [address] [place] [address] Social History Tobacco Use Types Packs/Day Years [...] on file 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 Sending labs to [facility] scheduled pt for f/u next week in office. * Telephone Encounter - Ana Elizabeth RN - 08/01/2024 2:46 PM CDT Images from the original note were not included. Will forward to [facility]. Results in epic. Please review and advise, thank you! Note from 07/24/2024 [facility] Pulmonary Mary Pantoja NP Pulmonary Disease All Conversations (Newest Message First)Mary Pantoja NP AP 07/24/24 1:42 PM Note Spoke with patient via phone to see how he was feeling and how his blood pressures were running over the weekend. He ordered a blood pressure cuff after his visit on 07/19 and it still hasn't arrived yet. His weight has decreased, current weight is 148 pounds. Reviewed echocardiogram, worsening heart failure. 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 Ramirez is aware and see if he can help us manage it. * Telephone Encounter - Sade Gold - 08/01/2024 1:46 PM CDT Pt had an Echo and a PFT done on 07/19. He was told by his other provider that they would send them over so MJF could review them and help manage the issue they found. Please advise pt would like a call back once done. Contact: documented in this encounter Plan of Treatment Scheduled Orders Name Type Priority Associated Diagnoses Orde r Schedule Basic metabolic panel Lab Routine Chronic right-sided CHF (congestive heart failure) (HCC) Expected: 08/05/2024, Expires: 08/02/2025 documented as of this encounter Visit Diagnoses Diagnosis Chronic right-sided CHF (congestive heart failure) (HCC)- Primary Congestive heart failure, unspecified documented in this encounter Care Teams Fence Making Machine Operator Relationship Specialty Start Date End Date Yusuf Quintanilla MD [address] [place] [id number] PCP - General 10/03/15 documented as of this encounter
[2024-08-02 13:38] LABS: Anion Gap 10 mmol/L (4-12); Blood Urea Nitrogen 23 mg/dL (9-20); Calcium 8.8 mg/dL (8.4-10.2); Carbon Dioxide 25 mmol/L (22-30); Chloride 101 mmol/L (98-107); Estimated Glomerular Filt Rate 60; Glucose 106 mg/dL (65-110); Potassium 4.3 mmol/L (3.4-5.0); Sodium 136 mmol/L (137-145)
== END 2024-08-02 12:31 | disposition home or self-care (01) ==
LOC: ANHLAB 12:32
PROVIDERS: PCP Family Medicine; Visit Provider Specialist
DX: I50.812 Chronic right heart failure (principal)
CPT/HCPCS: 36415; 80048

== ENCOUNTER 2024-08-18 02:14 | Inpatient (IN) | payer MEDICARE, SELFPAY ==
[2024-08-18] VITALS (86 sets, daily range): BP systolic 64–134; BP diastolic 45–97; PULSE 61–106; RESP 12–29; TEMP 36.4–36.9; O2SAT 91–100
--- NOTE | ~2024-08-18 | XR_ITS ---
EXAMINATION: XR chest 1V portable DATE: 08/18/2024 04:04 INDICATION: Infection TECHNIQUE: frontal view of the chest was obtained. COMPARISON: Chest radiograph dated 05/28/[address] dated 07/18/2022 FINDINGS: Emphysema better appreciated on prior CT. Stable appearance of chronic atelectasis/scarring in the bi lateral lower lung zones. Calcified nodule at the right lung base consistent with old granulomatous d isease. No new airspace opacities, pulmonary edema, pleural effusion or pneumothorax. Heart size is n ormal. Median sternotomy wires and mediastinal surgical clips are seen, likely from prior coronary ar racquel bypass grafting. IMPRESSION: 1. Emphysema with stable appearance of atelectasis/scarring at the bilateral lower lung zones. Reviewed, dictated and finalized at location A. IMPRESSION: 1. Emphysema with stable appearance of atelectasis/scarring at the bilateral lo wer lung zones.
--- NOTE | ~2024-08-18 | CT_ITS ---
EXAMINATION: CT abdomen pelvis w con DATE: 08/18/2024 05:40 INDICATION: Gastrointestinal bleed TECHNIQUE: Computed tomography (CT) of the abdomen and pelvis was performed with 100 mL Omnipaque-350 intravenous contrast. Automated exposure control and iterative reconstruction technique were employe d. The dose-length product was 434.18 mGy-cm. COMPARISON: 07/08/2022 and 08/19/2005 FINDINGS: Emphysema with stable appearance of chronic region of atelectasis/scarring in both lower lungs. Calci fied right middle lobe nodule consistent with old granulomatous disease. Heart size is normal. Athero sclerotic coronary artery calcifications with change of prior median sternotomy and coronary artery b ypass grafting. No pericardial or pleural effusion. Bilateral gynecomastia. There is mild wall thicke danilo of the gallbladder with minimal pericholecystic stranding at the fundus but without dilation to more specifically suggest acute cholecystitis. Liver, spleen, pancreas, bilateral adrenal glands and left kidney are normal. 8 mm right renal cyst. Small bowel and appendix are normal. There is fluid th roughout the proximal two thirds of the colon. There are 5 small foci of high attenuation along the d ependent wall of the ascending colon which could represent foci of active extravasation although the multiplicity and dependent distribution favors high attenuation material within the fecal stream. Mil d scattered diverticulosis with sigmoid colon predominance and without adjacent inflammatory strandin g to suggest diverticulitis. Bladder is normal. Prostatomegaly. Small bilateral fat-containing inguin al hernias. No free intraperitoneal gas or fluid. No pathologically enlarged abdominal or pelvic lymp h nodes. There is calcified atherosclerosis of the aorta and many of the other arteries. Fusiform ane urysms of the bilateral common iliac arteries measuring up to 2.5 cm, and the left and 2.4 cm on the right. Additional fusiform aneurysm of the proximal left internal iliac artery measuring up to 1.4 cm in maximal diameter. There are compression and burst fractures with mild to moderate vertebral body height loss from T9 through L5 sparing only L2. Severe spondylosis. Subarticular sclerosis at the marisel ateral femoral heads which could secondary to the moderate osteoarthritis or small regions of osteone crosis. IMPRESSION: 1. Fluid throughout much of the colon consistent nonspecific diarrhea which could be due to gastroent eritis or reported gastrointestinal bleed. There are 5 small foci of high attenuation within the asce nding colon which are similar in density to the contrast in the colon which could represent foci of a ctive extravasation although the multiplicity and dependent distribution would favor high attenuation material within the fecal stream. 2. Mild diffuse gallbladder wall thickening with mild stranding near the fundus but without dilation to more specifically suggest acute cholecystitis. This could be due to decompressed state or potentia lly chronic cholecystitis. Correlate clinically for Arora sign and if indicated could consider furth er evaluation with either right upper quadrant ultrasound or HIDA scan. 3. 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 4. Extensive atherosclerotic disease with multifocal severe stenosis along the left external, superfi cial femoral and deep femoral arteries and at the right deep femoral artery with moderate stenosis at the right superficial femoral artery. 5. Numerous compression and burst fractures from T9 through L5 sparing L2 and several which appear re latively recent and new since 05/29/2024. Reviewed, dictated and finalized at location A. IMPRESSION: 1. Fluid throughout much of the colon consistent nonspecific diarrhea which cou ld be due to gastroenteritis or reported gastrointestinal bleed. There are 5 sm all foci of high attenuation within the ascending colon which are similar in de nsity to the contrast in the colon which could represent foci of active extrava sation although the multiplicity and dependent distribution would favor high at tenuation material within the fecal stream. 2. Mild diffuse gallbladder wall thickening with mild stranding near the fundus but without dilation to more specifically suggest acute cholecystitis. This co uld be due to decompressed state or potentially chronic cholecystitis. Correlat e clinically for Arora sign and if indicated could consider further evaluation with either right upper quadrant ultrasound or HIDA scan. 3. 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 4. Extensive atherosclerotic disease with multifocal severe stenosis along the left external, superficial femoral and deep femoral arteries and at the right d eep femoral artery with moderate stenosis at the right superficial femoral flash ry. 5. Numerous compression and burst fractures from T9 through L5 sparing L2 and s everal which appear relatively recent and new since 05/29/2024.
--- NOTE | ~2024-08-18 | XR_ITS ---
Portable chest x-ray Comparison: 08/18/2024 Clinical History: Shortness of breath Findings: Small right pleural effusion present. There is probable bibasilar atelectasis/pulmonary ed lanette versus possibly pneumonia. Cardiomediastinal silhouette is stable. Bones and soft tissues are un remarkable. Impression: Small right pleural effusion with probable bibasilar pulmonary edema/atelectasis. Correlate clinicall y for pneumonia. Reviewed, dictated and finalized at location . Impression: Small right pleural effusion with probable bibasilar pulmonary edema/atelectasi s. Correlate clinically for pneumonia.
--- NOTE | 2024-08-18 02:15 | ECG_ITS ---
Test Date: 2024-08-18 02:24:00 Measurements Intervals [place] Rate: 76 P: 73 GA: 158 QRS: 124 QRSD: 97 T: 50 QT: 404 QTc: 456 Interpretive Statements SINUS RHYTHM WITH OCCASIONAL VENTRICULAR PREMATURE COMPLEXES RIGHT AXIS DEVIATION PATTERN CONSISTENT WITH PULMONARY DISEASE BASELINE ARTIFACT- I, II, III, AVR, AVL, AVF, V1-V6 BORDERLINE ECG No previous ECG available for comparison Electronically Signed On 08-18-2024 07:06:08 CDT by Nils Valle D.O.
[2024-08-18 02:33] LABS: Basophils Percent Auto 0.2 % (0.2-1.2); Eosinophils Percent Auto 0.1 % (0-4.4); Hematocrit 25.4 % (42.0-52.0); Immature Granulocyte Absolute 1.25 K/mm3 (0.00-0.031); Immature Granulocyte Percent A 5.4 % (0-0.5); Lymphocytes Absolute Auto 1.61 K/mm3 (0.9-3.2); Lymphocytes Percent Auto 6.9 % (18.3-44.2); Mean Corpuscular HGB Conc 27.2 g/dl (32-36); Mean Corpuscular Hemoglobin 24.8 pg (26-34); Mean Corpuscular Volume 91.4 fl (80-100); Mean Platelet Volume 10.4 fl (7.4-10.4); Monocytes Absolute Auto 0.8 K/mm3 (0.1-0.6); Monocytes Percent Auto 3.5 % (2.6-8.5); Neutrophils Absolute Auto 19.5 K/mm3 (1.3-6.7); Neutrophils Percent Auto 83.9 % (45.5-73.1); Nucleated Red Blood Cells Perc 0.3 % (0.0-0.2); Platelet Count Result 302 k/mm3 (150-375); Red Blood Count 2.78 M/mm3 (4.6-6.20); Red Cell Distribution Width 24.7 % (11.5-14.5); White Blood Count 23.3 K/mm3 (4.5-10.0)
[2024-08-18 02:40] LABS: Alanine Aminotransferase 47 U/L (6-50); Albumin Level 2.6 g/dL (3.5-5.1); Alkaline Phosphatase 134 U/L (38-126); Anion Gap 16 mmol/L (4-12); Aspartate Amino Transferase 62 U/L (17-59); Bilirubin,Total 0.7 mg/dL (0.2-1.3); Blood Urea Nitrogen 81 mg/dL (9-20); Calcium 8.1 mg/dL (8.4-10.2); Carbon Dioxide 14 mmol/L (22-30); Chloride 104 mmol/L (98-107); Estimated Glomerular Filt Rate 47; Glucose 237 mg/dL (65-110); Sodium 134 mmol/L (137-145)
[2024-08-18 02:53] LABS: INR 1.2; Prothrombin Time 15.5 Seconds (11.1-14.7)
[2024-08-18 02:54] LABS: Partial Thromboplastin Time 23.9 Seconds (22.3-36.8)
--- NOTE | 2024-08-18 03:07 | ED_ITS ---
HPI - General Adult General Chief complaint: GI Bleed <Nicole Chawla MD - Last Filed: 08/18/24 06:56> Stated complaint: Black Stools x 2 hours <Nicole Chawla MD - Last Filed: 08/18/24 06:56> Time Seen by Provider: 08/19/24 07:01 <Nicole Chawla MD - Last Filed: 08/18/24 06:56> History of Present Illness HPI narrative: Patient is a 79-year-old male who presents the emergency department this evening complaining of 1 episode of dark black metal attic stool and 1 episode of bright red blood emesis. Denies any blood thinner use. States that this is the 1st time this has happened to him. Currently denying any pain including any chest pain, shortness of breath or abdominal pain. Denies any history of cirrhosis or esophageal varices. Patient denies any additional symptoms or concerns at this time. <Nicole Chawla MD - Last Filed: 08/18/24 06:56> Related Data Home medications: Home Medications ?Medication ?Instructions ?Recorded ?Confirmed ?Last Taken ?Type aspirin 81 mg chewable tablet 81 mg PO DAILY 04/22/20 04/27/24 01/04/24 History lisinopril 20 mg tablet 10 mg PO DAILY 06/28/22 04/27/24 Unknown History macitentan 10 mg tablet (Opsumit) 10 mg PO DAILY 01/14/23 04/27/24 Unknown History <Nicole Chawla MD - Last Filed: 08/18/24 06:56> Allergies/adverse reactions: Allergies Allergy/AdvReac Type Severity Reaction Status Date / Time crab Allergy Intermediate Hives Verified 08/18/24 02:16 tiotropium (From Spiriva Allergy Mild Dizziness Verified 08/18/24 02:16 with HandiHaler) <Nicole Chawla MD - Last Filed: 08/18/24 06:56> Review of Systems 2 Review of Systems: All systems are reviewed and are negative unless stated otherwise in the HPI. <Nicole Chawla MD - Last Filed: 08/18/24 06:56> PMFSH Past Medical History Medical History: Medical History (Updated 08/18/24 @ 06:42 by Lisa Fonseca DO) Central sleep apnea Lumbar stenosis with neurogenic claudication Lumbar radiculopathy Neuropathy Chronic respiratory failure with hypoxia, on home oxygen therapy Combined systolic and diastolic cardiac dysfunction Severe pulmonary hypertension Right ventricular systolic dysfunction Obstructive sleep apnea Intolerant to CPAP. Benign essential hypertension Erectile dysfunction Hypogonadism Solitary pulmonary nodule Atherosclerosis of aorta Generalized anxiety disorder Raynaud's syndrome without gangrene Hypertension Hypothyroidism Hyperlipidemia Depression Emphysema lung Coronary artery disease <Nicole Chawla MD - Last Filed: 08/18/24 06:56> Surgical History Surgical History: Surgical History History of three vessel coronary artery bypass History of cardiac cath <Nicole Chawla MD - Last Filed: 08/18/24 06:56> Family History Family History: Family History Father Hypertension Alcoholism <Nicole Chawla MD - Last Filed: 08/18/24 06:56> Social History Social History: Social History (Updated 08/18/24 @ 06:29 by Lisa Fonseca DO) Social History: Surrogate medical decision maker: Constantine Ko Jr., son. Code status: DNR/DNI Smoking packs per day: 1 Smoking cigarettes per day: 20.0 Years smoked: 40 Smoking pack-years: 40.00 Smoking status: Former smoker Tobacco type: cigarettes Smoking end date: 01/04/04 Alcohol intake: current Drinks per week: 1 Substance use: never Substance use type: does not use Do You Feel Safe in your Home?: Yes Lack of Transportation: No Lack of Food: Never True Current Housing: I Have Housing Concerned About Future Housing: No Difficulty Paying Gas/Electric Bills: No Difficulty Paying for Meds: No Currently Unemployed: No Education: High School Diploma/GED Difficulty w/ Childcare or Family Care: No Living arrangements: with family Additional living arrangements comments: Lives with spouse in [place]. Occupation/Education: retired Spiritual care concerns: No <Nicole Chawla MD - Last Filed: 08/18/24 06:56> Exam 2 Narrative: General: Alert, awake, afebrile, in no acute distress, pale. HEENT: PERRL, no rhinorrhea, no post nasal drip, oropharynx clear. Neck: Trachea midline, no JVD, no lymphadenopathy. Cardiovascular: Regular rate and rhythm, no murmurs, rubs or gallops, no peripheral edema. Respiratory: Clear to auscultation bilaterally, no tachypnea, no wheezing, no rhonchi, no rubs, no respiratory distress. Abdomen: Soft, nontender, nondistended, no rebound, no guarding, no peritoneal signs. Rectal: Dark black melanotic stools, FOBT +. Musculoskeletal: No joint swelling or deformity, normal muscle tone. Skin: No rashes or petechia, no signs of infection. Psychiatric: Alert and oriented, normal behavior and judgment for situation. Neurological: Alert and oriented to person, place, and time. Follows all commands. No focal deficits, speech is clear and fluent. <Nicole Chawla MD - Last Filed: 08/18/24 06:56> Course Reevaluation(s) Reevaluation #1: Patient now in our ER for 30 hours; stable, stable Hgb. Called hospitalist who agrees to admission, GI who agrees to consult; updated patient on plan < Berenice Webber MD - Last Filed: 08/19/24 08:08> Vital Signs Vital signs: Vital Signs Pulse Rate 84 08/18/24 02:31 Respiratory Rate 19 08/18/24 02:31 Blood Pressure 72/60 L 08/18/24 02:31 Temperature 98.4 F 08/19/24 07:46 Pulse Rate 83 08/19/24 07:46 Respiratory Rate 20 08/19/24 07:46 Blood Pressure 143/75 H 08/19/24 07:46 Pulse Oximetry 97 08/19/24 07:46 Oxygen Delivery Nasal Cannula 08/18/24 22:18 Oxygen Flow Rate 6 08/18/24 22:18 <Nicole Chawla MD - Last Filed: 08/18/24 06:56> Vital Signs Pulse Rate 84 08/18/24 02:31 Respiratory Rate 19 08/18/24 02:31 Blood Pressure 72/60 L 08/18/24 02:31 Temperature 98.4 F 08/19/24 07:46 Pulse Rate 83 08/19/24 07:46 Respiratory Rate 20 08/19/24 07:46 Blood Pressure 143/75 H 08/19/24 07:46 Pulse Oximetry 97 08/19/24 07:46 Oxygen Delivery Nasal Cannula 08/18/24 22:18 Oxygen Flow Rate 6 08/18/24 22:18 <Berenice Webber MD - Last Filed: 08/19/24 08:08> Medical Decision Making MDM Narrative Medical decision making narrative: The patient was evaluated by myself in the emergency department. History is obtained from patient who is an independent historian and physical exam was performed. External medical records were reviewed at this time. IV was established and pertinent tests were ordered. Shortly after patient arrival to the emergency department, did arrive and states that the patient does have a history of iron deficiency anemia and has had iron transfusions earlier this month at [facility]. Patient was administered 1 L IV fluid bolus with normal saline along with 2 units of packed RBCs due to concern for hypovolemia shock secondary to GI bleed. EKG was obtained which revealed sinus rhythm rate of 76 beats per minute, no evidence of acute ischemia within the limitation of baseline artifact secondary to respiratory motion. EKG was independently interpreted by me and is currently pending official cardiology read. Laboratory results obtained revealing leukocytosis of 23.3, hemoglobin of 6.9 which has dropped from hemoglobin of 9.3 end of June of this year. BUN noted to be 81, creatinine 1.6, glucose 237. Differential diagnosis considerations include upper versus lower GI bleed, hypovolemic shock, dehydration, electrolyte derangements. Comorbidities impacting this visit include none. I have evaluated and discussed social determinants of health with the patient that could potentially impact subsequent diagnosis and treatment plans. On repeat assessment of the patient, reevaluation revealed that the patient is doing well and is in no acute distress. Patient symptoms have improved since he arrived to our emergency department. Repeat vital signs were all reviewed and noted to be stable. Differential diagnosis and treatment plan were discussed with the patient at bedside. Patient agrees with discussion and after shared medical decision making agrees with admission. All questions were answered to the patient's satisfaction. Case was discussed with the on-call GI physician Dr. Easton at 0330 and he agreed to evaluate the patient. Case was discussed with the on-call Critical care time of 75 minutes, exclusive of separately performed procedures, necessary for treating or preventing eminent or life-threatening deterioration of patient's condition of hemorrhagic shock secondary to upper GI bleed requiring multiple units of packed RBCs, focused on patient care provided personally by me and time spent during initial evaluation, physical examination, ordering and performing treatments and interventions, ordering and reviewing laboratory studies, ordering and reviewing radiographic studies, re-evaluation of the patient's condition, evaluation of the patient's response to treatment, and discussion of patient case with consultants. <Nicole Chawla MD - Last Filed: 08/18/24 06:56> Vital Signs Vital Signs: Vital Signs Pulse Rate 84 08/18/24 02:31 Respiratory Rate 19 08/18/24 02:31 Blood Pressure 72/60 L 08/18/24 02:31 Temperature 98.4 F 08/19/24 07:46 Pulse Rate 83 08/19/24 07:46 Respiratory Rate 20 08/19/24 07:46 Blood Pressure 143/75 H 08/19/24 07:46 Pulse Oximetry 97 08/19/24 07:46 Oxygen Delivery Nasal Cannula 08/18/24 22:18 Oxygen Flow Rate 6 08/18/24 22:18 <Nicole Chawla MD - Last Filed: 08/18/24 06:56> Vital Signs Pulse Rate 84 08/18/24 02:31 Respiratory Rate 19 08/18/24 02:31 Blood Pressure 72/60 L 08/18/24 02:31 Temperature 98.4 F 08/19/24 07:46 Pulse Rate 83 08/19/24 07:46 Respiratory Rate 20 08/19/24 07:46 Blood Pressure 143/75 H 08/19/24 07:46 Pulse Oximetry 97 08/19/24 07:46 Oxygen Delivery Nasal Cannula 08/18/24 22:18 Oxygen Flow Rate 6 08/18/24 22:18 <Berenice Webber MD - Last Filed: 08/19/24 08:08> Lab Data Result diagrams: 08/19/24 06:02 08/18/24 02:26 <Nicole Chawla MD - Last Filed: 08/18/24 06:56> Labs: Lab Results 08/18/24 08/18/24 08/18/24 Range/Units 02:26 06:36 08:06 WBC 23.3 H (4.5-10.0) K/mm3 RBC 2.78 L (4.6-6.20) M/mm3 Hgb 6.9 L* 8.7 L (14.0-18.0) g/dL Hct 25.4 L 29.1 L (42.0-52.0) % MCV 91.4 (80-100) fl MCH 24.8 L (26-34) pg MCHC 27.2 L (32-36) g/dl RDW 24.7 H (11.5-14.5) % Plt Count 302 (150-375) k/mm3 MPV 10.4 (7.4-10.4) fl Immature Gran % (Auto) 5.4 H (0-0.5) % Neut % (Auto) 83.9 H (45.5-73.1) % Lymph % (Auto) 6.9 L (18.3-44.2) % [place] % (Auto) 3.5 (2.6-8.5) % Eos % (Auto) 0.1 (0-4.4) % Baso % (Auto) 0.2 (0.2-1.2) % Lymph # (Auto) 1.61 (0.9-3.2) K/mm3 [place] # (Auto) 0.8 H (0.1-0.6) K/mm3 Eos # (Auto) 0.0 (0-0.3) K/mm3 Baso # (Auto) 0.0 (0.0-0.1) K/mm3 Abs Immat Gran (auto) 1.25 H (0.00-0.031) K/mm3 Absolute Neuts (auto) 19.5 H (1.3-6.7) K/mm3 Absolute Nucleated RBC 0.060 H (0.0-0.012) K/mm3 Band Neutrophils % Not Reportable Nucleated RBC % 0.3 H (0.0-0.2) % Platelet Estimate Adequate (Adequate) Anisocytosis 2+ Tear Drop Cells 1+ Ovalocytes 2+ Schistocytes Rare PT 15.5 H (11.1-14.7) Seconds INR 1.2 APTT 23.9 (22.3-36.8) Seconds Sodium 134 L (137-145) mmol/L Potassium 5.0 (3.4-5.0) mmol/L Chloride 104 (98-107) mmol/L Carbon Dioxide 14 L (22-30) mmol/L Anion Gap 16 H (4-12) mmol/L BUN 81 H D (9-20) mg/dL Creatinine 1.46 H (0.7-1.3) mg/dL Estim Creat Clear Calc Not Reportable Estimated GFR 47 L (59 - ) Glucose 237 H (65-110) mg/dL Calcium 8.1 L (8.4-10.2) mg/dL Magnesium 2.0 (1.6-2.3) mg/dL Total Bilirubin 0.7 (0.2-1.3) mg/dL AST 62 H (17-59) U/L ALT 47 (6-50) U/L Alkaline Phosphatase 134 H (38-126) U/L Total Protein 5.0 L (6.3-8.2) g/dL Albumin 2.6 L (3.5-5.1) g/dL Urine Color Yellow (Yellow) Urine Appearance Clear (Clear) Urine pH 5.0 (5.0-9.0) Ur Specific [place] 1.019 (1.001-1.035) Urine Protein Negative (Negative) mg/dL Urine Glucose (UA) Negative (Negative) mg/dL Urine Ketones Negative (Negative) mg/dL Ur Blood (Man) Trace (Negative) Urine Nitrate Negative (Negative) Urine Bilirubin Negative (Negative) Urine Urobilinogen 0.2 (<2.0) mg/dL Add Ur Microanalysis Reviewed Leukocyte Esterase Rfl Negative (Negative) ANITA/UL Urine RBC 0-2 (0-2) /hpf Urine WBC 0-5 (0-3) /hpf Ur Squamous Epith Cells None seen (Few) /hpf Urine Bacteria None seen /hpf Urine Casts 6-10 Blood Type O Positive Antibody Screen Negative Crossmatch See Detail 08/18/24 08/18/24 08/19/24 Range/Units 14:05 20:37 06:02 WBC (4.5-10.0) K/mm3 RBC (4.6-6.20) M/mm3 Hgb 8.4 L 7.9 L 7.8 L (14.0-18.0) g/dL Hct 27.8 L 26.1 L 26.9 L (42.0-52.0) % MCV (80-100) fl MCH (26-34) pg MCHC (32-36) g/dl RDW (11.5-14.5) % Plt Count (150-375) k/mm3 MPV (7.4-10.4) fl Immature Gran % (Auto) (0-0.5) % Neut % (Auto) (45.5-73.1) % Lymph % (Auto) (18.3-44.2) % [place] % (Auto) (2.6-8.5) % Eos % (Auto) (0-4.4) % Baso % (Auto) (0.2-1.2) % Lymph # (Auto) (0.9-3.2) K/mm3 [place] # (Auto) (0.1-0.6) K/mm3 Eos # (Auto) (0-0.3) K/mm3 Baso # (Auto) (0.0-0.1) K/mm3 Abs Immat Gran (auto) (0.00-0.031) K/mm3 Absolute Neuts (auto) (1.3-6.7) K/mm3 Absolute Nucleated RBC (0.0-0.012) K/mm3 Band Neutrophils % Nucleated RBC % (0.0-0.2) % Platelet Estimate (Adequate) Anisocytosis Tear Drop Cells Ovalocytes Schistocytes PT (11.1-14.7) Seconds INR APTT (22.3-36.8) Seconds Sodium (137-145) mmol/L Potassium (3.4-5.0) mmol/L Chloride (98-107) mmol/L Carbon Dioxide (22-30) mmol/L Anion Gap (4-12) mmol/L BUN (9-20) mg/dL Creatinine (0.7-1.3) mg/dL Estim Creat Clear Calc Estimated GFR (59 - ) Glucose (65-110) mg/dL Calcium (8.4-10.2) mg/dL Magnesium (1.6-2.3) mg/dL Total Bilirubin (0.2-1.3) mg/dL AST (17-59) U/L ALT (6-50) U/L Alkaline Phosphatase (38-126) U/L Total Protein (6.3-8.2) g/dL Albumin (3.5-5.1) g/dL Urine Color (Yellow) Urine Appearance (Clear) Urine pH (5.0-9.0) Ur Specific [place] (1.001-1.035) Urine Protein (Negative) mg/dL Urine Glucose (UA) (Negative) mg/dL Urine Ketones (Negative) mg/dL Ur Blood (Man) (Negative) Urine Nitrate (Negative) Urine Bilirubin (Negative) Urine Urobilinogen (<2.0) mg/dL Add Ur Microanalysis Leukocyte Esterase Rfl (Negative) ANITA/UL Urine RBC (0-2) /hpf Urine WBC (0-3) /hpf Ur Squamous Epith Cells (Few) /hpf Urine Bacteria /hpf Urine Casts Blood Type Antibody Screen Crossmatch <Nicole Chawla MD - Last Filed: 08/18/24 06:56> Lab Results 08/18/24 08/18/24 08/18/24 Range/Units 02:26 06:36 08:06 WBC 23.3 H (4.5-10.0) K/mm3 RBC 2.78 L (4.6-6.20) M/mm3 Hgb 6.9 L* 8.7 L (14.0-18.0) g/dL Hct 25.4 L 29.1 L (42.0-52.0) % MCV 91.4 (80-100) fl MCH 24.8 L (26-34) pg MCHC 27.2 L (32-36) g/dl RDW 24.7 H (11.5-14.5) % Plt Count 302 (150-375) k/mm3 MPV 10.4 (7.4-10.4) fl Immature Gran % (Auto) 5.4 H (0-0.5) % Neut % (Auto) 83.9 H (45.5-73.1) % Lymph % (Auto) 6.9 L (18.3-44.2) % [place] % (Auto) 3.5 (2.6-8.5) % Eos % (Auto) 0.1 (0-4.4) % Baso % (Auto) 0.2 (0.2-1.2) % Lymph # (Auto) 1.61 (0.9-3.2) K/mm3 [place] # (Auto) 0.8 H (0.1-0.6) K/mm3 Eos # (Auto) 0.0 (0-0.3) K/mm3 Baso # (Auto) 0.0 (0.0-0.1) K/mm3 Abs Immat Gran (auto) 1.25 H (0.00-0.031) K/mm3 Absolute Neuts (auto) 19.5 H (1.3-6.7) K/mm3 Absolute Nucleated RBC 0.060 H (0.0-0.012) K/mm3 Band Neutrophils % Not Reportable Nucleated RBC % 0.3 H (0.0-0.2) % Platelet Estimate Adequate (Adequate) Anisocytosis 2+ Tear Drop Cells 1+ Ovalocytes 2+ Schistocytes Rare PT 15.5 H (11.1-14.7) Seconds INR 1.2 APTT 23.9 (22.3-36.8) Seconds Sodium 134 L (137-145) mmol/L Potassium 5.0 (3.4-5.0) mmol/L Chloride 104 (98-107) mmol/L Carbon Dioxide 14 L (22-30) mmol/L Anion Gap 16 H (4-12) mmol/L BUN 81 H D (9-20) mg/dL Creatinine 1.46 H (0.7-1.3) mg/dL Estim Creat Clear Calc Not Reportable Estimated GFR 47 L (59 - ) Glucose 237 H (65-110) mg/dL Calcium 8.1 L (8.4-10.2) mg/dL Magnesium 2.0 (1.6-2.3) mg/dL Total Bilirubin 0.7 (0.2-1.3) mg/dL AST 62 H (17-59) U/L ALT 47 (6-50) U/L Alkaline Phosphatase 134 H (38-126) U/L Total Protein 5.0 L (6.3-8.2) g/dL Albumin 2.6 L (3.5-5.1) g/dL Urine Color Yellow (Yellow) Urine Appearance Clear (Clear) Urine pH 5.0 (5.0-9.0) Ur Specific [place] 1.019 (1.001-1.035) Urine Protein Negative (Negative) mg/dL Urine Glucose (UA) Negative (Negative) mg/dL Urine Ketones Negative (Negative) mg/dL Ur Blood (Man) Trace (Negative) Urine Nitrate Negative (Negative) Urine Bilirubin Negative (Negative) Urine Urobilinogen 0.2 (<2.0) mg/dL Add Ur Microanalysis Reviewed Leukocyte Esterase Rfl Negative (Negative) ANITA/UL Urine RBC 0-2 (0-2) /hpf Urine WBC 0-5 (0-3) /hpf Ur Squamous Epith Cells None seen (Few) /hpf Urine Bacteria None seen /hpf Urine Casts 6-10 Blood Type O Positive Antibody Screen Negative Crossmatch See Detail 08/18/24 08/18/24 08/19/24 Range/Units 14:05 20:37 06:02 WBC (4.5-10.0) K/mm3 RBC (4.6-6.20) M/mm3 Hgb 8.4 L 7.9 L 7.8 L (14.0-18.0) g/dL Hct 27.8 L 26.1 L 26.9 L (42.0-52.0) % MCV (80-100) fl MCH (26-34) pg MCHC (32-36) g/dl RDW (11.5-14.5) % Plt Count (150-375) k/mm3 MPV (7.4-10.4) fl Immature Gran % (Auto) (0-0.5) % Neut % (Auto) (45.5-73.1) % Lymph % (Auto) (18.3-44.2) % [place] % (Auto) (2.6-8.5) % Eos % (Auto) (0-4.4) % Baso % (Auto) (0.2-1.2) % Lymph # (Auto) (0.9-3.2) K/mm3 [place] # (Auto) (0.1-0.6) K/mm3 Eos # (Auto) (0-0.3) K/mm3 Baso # (Auto) (0.0-0.1) K/mm3 Abs Immat Gran (auto) (0.00-0.031) K/mm3 Absolute Neuts (auto) (1.3-6.7) K/mm3 Absolute Nucleated RBC (0.0-0.012) K/mm3 Band Neutrophils % Nucleated RBC % (0.0-0.2) % Platelet Estimate (Adequate) Anisocytosis Tear Drop Cells Ovalocytes Schistocytes PT (11.1-14.7) Seconds INR APTT (22.3-36.8) Seconds Sodium (137-145) mmol/L Potassium (3.4-5.0) mmol/L Chloride (98-107) mmol/L Carbon Dioxide (22-30) mmol/L Anion Gap (4-12) mmol/L BUN (9-20) mg/dL Creatinine (0.7-1.3) mg/dL Estim Creat Clear Calc Estimated GFR (59 - ) Glucose (65-110) mg/dL Calcium (8.4-10.2) mg/dL Magnesium (1.6-2.3) mg/dL Total Bilirubin (0.2-1.3) mg/dL AST (17-59) U/L ALT (6-50) U/L Alkaline Phosphatase (38-126) U/L Total Protein (6.3-8.2) g/dL Albumin (3.5-5.1) g/dL Urine Color (Yellow) Urine Appearance (Clear) Urine pH (5.0-9.0) Ur Specific [place] (1.001-1.035) Urine Protein (Negative) mg/dL Urine Glucose (UA) (Negative) mg/dL Urine Ketones (Negative) mg/dL Ur Blood (Man) (Negative) Urine Nitrate (Negative) Urine Bilirubin (Negative) Urine Urobilinogen (<2.0) mg/dL Add Ur Microanalysis Leukocyte Esterase Rfl (Negative) ANITA/UL Urine RBC (0-2) /hpf Urine WBC (0-3) /hpf Ur Squamous Epith Cells (Few) /hpf Urine Bacteria /hpf Urine Casts Blood Type Antibody Screen Crossmatch <Berenice Webber MD - Last Filed: 08/19/24 08:08> Critical Care Time Critical Care Time Total Critical Care Time: 75 (Please refer to [facility] for attestation) <Nicole Chawla MD - Last Filed: 08/18/24 06:56> Discharge Plan Discharge Clinical Impression: Acute upper gastrointestinal bleeding, Acute blood loss anemia Leukocytosis Qualifiers: Leukocytosis type: leukemoid reaction Qualified Code(s): D72.823 - Leukemoid reaction <Nicole Chawla MD - Last Filed: 08/18/24 06:56> Patient Disposition: Still a Patient <Nicole Chawla MD - Last Filed: 08/18/24 06:56> Condition: Serious <Nicole Chawla MD - Last Filed: 08/18/24 06:56> Patient Language: [place] <Nicole Chawla MD - Last Filed: 08/18/24 06:56> Prescriptions: No Action Opsumit 10 mg tablet 10 mg PO DAILY aspirin 81 mg Tablet,Chewable 81 mg PO DAILY lisinopril 20 mg tablet 10 mg PO DAILY ipratropium-albuterol 0.5 mg-3 mg(2.5 mg base)/3 mL solution for nebulization 3 ml inhalation QID PRN (Reason: shortness of breath) Qty: 180 0RF albuterol sulfate 90 mcg/actuation HFA aerosol inhaler 1 inh inhalation QID PRN (Reason: shortness of breath or wheezing) Qty: 8.5 0RF (DME) nebulizers Misc See Rx Instructions .Route Qty: 1 0RF Rx Instructions: As directed potassium chloride [K-Tab] 20 mEq tablet extended release 20 meq PO DAILY@0800 Qty: 90 1RF furosemide 40 mg tablet 40 mg PO DAILY Qty: 90 1RF Breztri Aerosphere 160-9-4.8 mcg/actuation HFA aerosol inhaler 2 inh inhalation BID Qty: 10.7 3RF Rx Instructions: Says takes PRN citalopram 20 mg tablet 40 mg PO DAILY Qty: 180 0RF azithromycin 500 mg tablet 500 mg PO .three times per week 90 Days Qty: 36 1RF Rx Instructions: TUESDAY, TUESDAY, TUESDAY methocarbamol 750 mg tablet 750 mg PO TID PRN (Reason: muscle spasm) Qty: 30 0RF prednisone 20 mg tablet See Rx Instructions .ROUTE .COMPLEX Qty: 30 1RF Dose Instruction: Take 1 tablet by mouth once daily Rx Instructions: Take 1 tablet by mouth once daily spironolactone 25 mg tablet 25 mg PO DAILY Qty: 90 0RF atorvastatin 80 mg tablet 80 mg PO DAILY Qty: 90 1RF mirtazapine 15 mg tablet See Rx Instructions .ROUTE .COMPLEX Qty: 90 1RF Dose Instruction: TAKE 1 TABLET BY MOUTH ONCE DAILY AT BEDTIME Rx Instructions: TAKE 1 TABLET BY MOUTH ONCE DAILY AT BEDTIME <Nicole Chawla MD - Last Filed: 08/18/24 06:56> Follow-up/Referrals: Yusuf Quintanilla MD [Primary Care Provider] - <Nicole Chawla MD - Last Filed: 08/18/24 06:56>
[2024-08-18 03:15] LABS: Hemoglobin 6.9 g/dL (14.0-18.0)
--- OUTSIDE RECORDS SUMMARY | 2024-08-18 03:15 | XMS_ITS | Encounter Summary ---
Author Organization [facility] Address [address] [place] [address] Care Team Providers Care Easement Worker Name Role Phone Unavailable Primary Care Provider Unavailabl e Encounter Details Date Type Department Care Team (Late st Contact Info) Description 08/31/2023 Lab Requisition [facility] - DermPath Lab [address] [place] [address] Court Benton MD [address] [place] [address] Social History Tobacco Use Types Packs/Day Years Used Date Smoking Tobacco: Never Assessed Sex and Gender Information Value Date Recorded Sex Assigned at Not on file Legal Sex Male 10:37 AM [employer] Gender Identity Not on file Sexual Orientation Not on file documented as of this encounter Plan of Treatment Not on file documented as of this encounter Procedures Procedure Name Priority Date/Time Associated Diagnosis Comments DERMATOPATHOLOGY Routine 08/29/2023 3:33 AM CDT documented in this encounter Results * DERMATOPATHOLOGY (08/29/2023 3:33 AM CDT) Case Report Dermatopathology Report Case: [id number] Authorizing Provider: Court Benton MD Collected: 08/29/2023 03:33 AM Ordering Location: [facility] - Received: 08/31/2023 01:12 PM DermPath Lab [...] biopsy measuring 5x4x1, 4x2x1 mm. Jar 0. 4 2:23 PM CDT DERMATOPATHOLOGY LABORATORY Microscopic Description Specimen A. SKIN, left superior helix: Within the dermis there are aggregates of basaloid cells with a high nuclear to cytoplasmic ratio and peripheral palisading. 4 2:23 PM CDT DERMATOPATHOLOGY LABORATORY Disclaimer An external and internal positive and negative controls are appropriate for the histochemical, immunohistochemical and immunofluorescence stain(s) in this case (if any), except where stated explicitly. The performance characteristics of the stain(s) cited in this report were developed and its performance characteristic determined by the Dermatopathology Laboratory at [facility], directed by Dr. Jolie Joshi. These tests need not be, and therefore are not, approved by the [place] Food and Drug Administration. The tests are used for clinical purposes. Billing Codes Specimen Charges Stain Charges 64191 1 4 2:23 PM CDT DERMATOPATHOLOGY LABORATORY Embedded Images 4 2:23 PM CDT DERMATOPATHOLOGY LABORATORY Pathology/Cytolo gy TISSUE SPECIMEN FROM SKIN / Unknown 08/29/2023 3:33 AM CDT 08/31/2023 1:[address] Benton MD LAB - PATHOLOGY/CYTOLOGY OR DERABLES Final Result DERMATOPATHOLOGY LABORATORY [facility] - Department of Dermatology [address] [place] [address], [facility] [phone] documented in this encounter Visit Diagnoses Not on filedocumented in this encounter
--- OUTSIDE RECORDS SUMMARY | 2024-08-18 03:15 | XMS_ITS | Encounter Summary ---
Author Organization [facility] Address [address] [place] [address] Care Team Providers Care Supervisor Of Guidance And Testing Name Role Phone Unavailable Primary Care Provider Unavailabl e Encounter Details Date Type Department Care Team (Late st Contact Info) Description 05/25/2018 Lab Requisition [facility] Care DermPath Lab [address] [facility] [place] [id number] Court Benton MD [address] [place] [address] Social History Tobacco Use Types Packs/Day Years Used Date Smoking Tobacco: Never Assessed Sex and Gender Information Value Date Recorded Sex Assigned at Not on file Legal Sex Male 10:37 AM AREA DEVELOPMENT CONSULTANT Gender Identity Not on file Sexual Orientation Not on file documented as of this encounter Plan of Treatment Not on file documented as of this encounter Procedures Procedure Name Priority Date/Time Associated Diagnosis Comments DERMATOPATH TECHNICAL REPORT Routine 05/24/2018 12:00 AM AREA DEVELOPMENT CONSULTANT documented in this encounter Results * DERMATOPATH TECHNICAL REPORT (05/24/2018 12:00 AM AREA DEVELOPMENT CONSULTANT) Case Report Dermatopathology Report Case: [id number] Authorizing Provider: Court Benton MD Collected: 05/24/2018 12:00 AM Pathologist: Marcelino Joshi MD Received: 05/25/2018 08:31 AM Specimen: Skin, left NLF corner of mouth 9 2:24 PM AREA DEVELOPMENT CONSULTANT DERMATOPATHOLOGY LABORATORY Clinical History R/O BCC, non-healing. 9 2:24 PM AREA DEVELOPMENT CONSULTANT DERMATOPATHOLOGY LABORATORY Gross Description Specimen A: Received is one formalin filled container labeled with the patient's name and designated left NLF corner of mouth. The specimen consists of a shave measuring [id number]. Jar 0. [facility] Dermatopathology Laboratory performed the technical component only. 9 2:24 PM [facility] DERMATOPATHOLOGY LABORATORY Embedded Images 2:24 PM [facility] DERMATOPATHOLOGY LABORATORY DISCLAIMER An external and internal positive and negative controls are appropriate for the histochemical, immunohistochemical and immunofluorescence stain(s) in this case (if any), except where stated explicitly. The performance characteristics of the stain(s) cited in this report were developed and its performance characteristic determined by the Dermatopathology Laboratory at [facility], directed by Dr. Jolie Joshi. These tests need not be, and therefore are not, approved by the [place] Food and Drug Administration. The tests are used for clinical purposes. 9 2:24 PM [facility] DERMATOPATHOLOGY LABORATORY Pathology/Cytolog y TISSUE SPECIMEN FROM SKIN / Unknown 05/24/2018 05/25/2018 8:31 AM AREA DEVELOPMENT CONSULTANT Court Benton MD LAB - PATHOLOGY/CYTOLOGY OR DERABLES Final Result DERMATOPATHOLOGY LABORATORY [facility] - Department of Dermatology [facility]th [place] [address], [place] [phone] documented in this encounter Visit Diagnoses Not on filedocumented in this encounter
--- OUTSIDE RECORDS SUMMARY | 2024-08-18 03:15 | XMS_ITS | Encounter Summary ---
Author Organization [facility] Address [address] [place] [address] Care Team Providers Care Shareholder Name Role Phone Unavailable Primary Care Provider Unavailabl e Encounter Details Date Type Department Care Team (Late st Contact Info) Description 09/02/2023 Lab Requisition [facility] - DermPath Lab [address] [facility] [place] [address] Court Benton MD [address] [place] [address] Social History Tobacco Use Types Packs/Day Years Used Date Smoking Tobacco: Never Assessed Sex and Gender Information Value Date Recorded Sex Assigned at Not on file 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
[2024-08-18 03:16] LABS: Platelet Estimate Adequate (Adequate)
--- OUTSIDE RECORDS SUMMARY | 2024-08-18 03:16 | XMS_ITS | Clinical Summary ---
Author Organization [facility] [address] Address [address] [place] [address] Care Team Providers Care Shipboard Intelligence Analyst Name Role Phone Yusuf Quintanilla MD Primary Care Provider [phone] Allergies Active Allergy Reactions Criticality Noted Date [...] 2 (two) times a day 60 tablet 11 4 12/28/19 25 Active potassium chloride ER [...] 2 PUFFS TWICE DAILY NEEDED 5 Active losartan (COZAAR) 25 mg tablet Take 1 tablet (25 mg total) by mouth daily 90 tablet 2 5 08/09/19 26 Active metoprolol XL (TOPROL-XL) 25 mg extended release tablet Take 1 tablet (25 mg total) by mouth daily 90 tablet 2 5 08/09/19 26 Active Active Problems Problem Noted Date Diagnosed Date CKD (chronic kidney disease) stage 3, GFR 30-59 ml/min 08/08/2024 ANGELO (iron deficiency anemia) 07/03/2024 Chronic obstructive [...] Encounters Date Type Department Care Team Description 08/14/2024 10:30 AM CDT Infusion [facility] [address] [place] [phone] Other iron deficiency anemia (Primary Dx) 08/08/2024 9:45 AM CDT Office Visit [facility] Medical [facility] Cardiology [address] [place] [address] Taras Ramirez MD Hx of CABG (Primary Dx); Pulmonary hypertension (HCC); Stage 3a chronic kidney disease (HCC) 08/07/2024 1:30 PM CDT Infusion [facility] [address] [facility] 7th [place] [address] Other iron deficiency anemia (Primary Dx) 08/06/2024 Orders Only [facility] Pulmonary [address] [facility] 8th [place] [address] [place] [phone] Day Snell RN 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) 08/01/2024 Telephone [facility] Cardiology [address] [place] [address] Taras Ramirez MD 08/01/2024 Telephone [facility] [address] [facility] 8th [place] [address] [place] [phone] Mary Pantoja NP 07/31/2024 1:30 PM CDT Infusion [facility] [address] [place] [phone] Other iron deficiency anemia (Primary Dx) 07/31/2024 Documentation [facility] [address] [facility] 8th [place] [address] [place] [address] Em Harp, ALYSON 2024 Telephone [facility] [address] [place] [address] No, Physician 07/27/2024 Telephone [facility] [address] [place] [phone] 898 Carola Benitez RN 07/24/2024 Telephone [facility] [address] [facility] 8th [place] [address] [place] [address] Mary Pantoja NP 07/20/2024 Orders Only [facility] [address] [facility] [address] [place] [address] Day Snell RN 07/19/2024 2:31 PM CDT - 07/19/2024 11:59 PM CDT Hospital Encounter [facility] Cardiac Diagnostic Lab [address] [facility] [address] [place] [address] 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); Chronic obstructive pulmonary disease with acute exacerbation (HCC); Chronic right-sided CHF (congestive heart failure) (HCC) Discharge Disposition: Discharge to home or self care 07/19/2024 1:50 PM CDT Office Visit [facility] Pulmonary [address] [facility] 8th [place] [address] [place] [address] Mary Pantoja NP 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) 07/19/2024 12:54 PM CDT - 07/19/2024 11:59 PM CDT Hospital Encounter [facility] Pulmonary [facility] [address] [place] [address] 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); Chronic obstructive pulmonary disease with acute exacerbation (HCC); Chronic right-sided CHF (congestive heart failure) (HCC) Discharge Disposition: Discharge to home or self care 07/19/2024 12:37 PM CDT - 07/19/2024 11:59 PM CDT Hospital Encounter [facility] [address] [place] [address] 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 8th [place] [address] [place] [address] Em Harp, ALYSON 07/03/2024 Telephone [facility] 8th [place] [address] [place] [address] Day Snell, DIANNA 07/03/2024 Telephone [facility] 8th [place] [address] [place] [address] Day Snell, DIANNA 07/02/2024 Orders Only [facility] 8th [place] [address] [place] [address] Day Snell, DIANNA 06/28/2024 Orders Only [facility] Scanning, Provider 06/28/2024 Telephone [facility] 8th [place] [address] [place] [address] Day Snell, DIANNA 06/28/2024 Orders Only 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 8th [place] [address] [place] [phone] Day Snell RN 06/22/2024 Documentation [facility] [address] [facility] 8th [place] [address] [place] [phone] Em Harp CMA 06/21/2024 Documentation [facility] [address] [facility] 8th [place] [address] [place] [phone] Em Harp, CLOTH EDGE SINGER from Last 3 Months Surgical History Surgery [...] bronchitis (HCC) Depression Emphysema of lung (HCC) CKD (chronic kidney disease) stage 3, GFR 30-59 ml/min ([facility]) 08/08/2024 Family History Medical History Relation Name Comments [...] the money to buy more. Never true 08/15/19 25 Within the past 12 months, t he food you bought just didn't last and you didn't have money to get more. Never true 08/14/2024 Personal Safety Answer Date Recorded Have you ever been in or are you currently in a harmful physical or emotional relationship or is someone making you feel afraid or unsafe? Denies 08/14/2024 Sex and Gender Information Value Date Recorded Sex Assigned at Not on file Legal Sex Male 8:32 AM HOTBED OPERATOR Gender Identity Male 09/02/2020 8:09 AM CDT Sexual Orientation Not on file Obstetrics History Last Filed Vital Signs Vital Sign Reading Time Taken Comments Blood Pressure 110/62 08/14/2024 12:15 PM CDT Pulse 72 08/14/2024 12:15 PM CDT Temperature 36.1 C (96.9 F) 08/14/2024 9:54 AM CDT Respiratory Rate 18 07/19/2024 1:26 PM CDT Oxygen Saturation 99% 08/14/2024 12:15 PM CDT Inhaled Oxygen Concentration - - Weight 64 kg (141 lb) 08/14/2024 9:54 AM CDT Height 175.3 cm (5' 9 ) 08/08/2024 9:47 AM CDT Body Mass Index 20.82 08/08/2024 9:47 AM CDT Plan of Treatment Health Maintenance Due Date Last Done Comments Depression Screening 1945 Hepatitis C Screening 1945 DTaP/Tdap/Td Vaccine (1 - Tdap) 07/29/1958 Hepatitis B Screening 07/29/1965 Zoster Vaccine (1 of 2) 07/29/1997 Abdominal Aortic Aneurysm (A AA) Screen 07/29/2012 Well Visit 65+ 07/29/2012 Fall Risk Assessment 12/12/2024 12/13/2023, 03/04/20 20 Influenza Vaccine (Season Ended) 2024 02/06/2019, 02/15/2017, 02/04/2016, Additional history exists Pneumococcal vaccine 65+ Completed 06/22/2016, 06/2014 Procedures Procedure Name Priority Date/Time Associated Diagnosis Comments BASIC METABOLIC PANEL Routine 08/02/2024 Chronic right-sided CHF (congestive heart failure) (HCC) TRANSTHORACIC ECHO (TTE) COMPLETE W DOPPLER/CF WO [...] 06/28/2024 from Last 3 Months Results * (ABNORMAL) Basic metabolic panel (08/02/2024) SCRIBED Sodium 136(A) 137 - 145 mmol/L EXTERNAL LAB SCRIBED Potassium 4.3 3.4 - 5.0 mmol/L EXTERNAL LAB SCRIBED Chloride 101 98 - 107 mmol/L EXTERNAL LAB SCRIBED Carbon Dioxide 25 22 - 30 mmol/L EXTERNAL LAB SCRIBED Anion Gap 10 4 - 12 mmol/L EXTERNAL LAB SCRIBED Urea Nitrogen (BUN) 23(A) 9 - 20 mg/dl EXTERNAL LAB SCRIBED Creatinine 1.17 0.7 - 1.3 mg/dl EXTERNAL LAB SCRIBED Glucose 106 65 - 110 mg/dl EXTERNAL LAB SCRIBED Calcium 8.8 8.4 - 10.2 mg/dl EXTERNAL LAB SCRIBED eGFR in N/A N/A EXTERNAL LAB SCRIBED eGFR in NonAfrican Montserratian 60 = or > 60 EXTERNAL LAB Blood 08/02/2024 us Taras Ramirez MD LAB BLOOD ORDERABLES Fin al Result EXTERNAL LAB * TRANSTHORACIC ECHO (TTE) COMPLETE W DOPPLER/CF WO CONTRAST (07/19/2024 4:26 PM CDT) Anatomical Region Laterality Modality Ultrasound 07/19/2024 2:53 PM CDT Narrative 07/20/2024 6:42 AM CDT [facility] [place] [address] Transthoracic Echocardiographic Report Patient Name: ONI KO J : 1945 (78y 11m) Gender: M Study Date: 07/19/2024 02:53:43 PM Ht(Inch): 69 Wt(Lb): 154.98 BSA: 1.85 Music Autographer: Paula Waters Location: [facility] Order Provider: HARISH LARES Heart Rate: [...] Procedure Note Lucio Tran MD - 07/20/2024 [facility] [place] [address] Transthoracic Echocardiographic Report Patient Name: ONI KO J : 1945 (78y 11m) Gender: M Study Date: 07/19/2024 02:53:43 PM Ht(Inch): 69 Wt(Lb): 154.98 BSA: 1.85 Music Autographer: Paula Waters Location: [facility] Order Provider:HARISH LARES Heart Rate: 51 [...] LA Length 2C 4.08 cm MV Decel Plji769.23 msec [ 104.00 - 258.00 ] LA [...] [ 1.00 - 2.00 ] PI ED Ydc095.45 m/sec PI Peak PG 24 mmHg PI PHT 420.97 sec Electronically Signed By: Lucio Tran MD 07/20/2024 6:41:36 AM CDT Harish Lares MD CV ECHO PROCEDURES Final Result * Pulmonary Function Test - (07/19/2024 1:06 PM CDT) FVC PRE 3.10 L [facility] FVC %PRE PRED 83 % [facility] FEV1 PRE 1.39 L [facility] FEV1 %PRE PRED 50 % [facility] FEV1/FVC PRE 44.7 % [facility] Anatomical Region Laterality Modality PFT 07/19/2024 12:5 7 PM CDT Narrative 07/19/2024 1:28 PM CDT PFT performed at:->[facility] Adult PFT [facility]- [id number] Procedure:->Spirometry Pulmonary Function [...] and %HbO2 is age dependent. However, the [facility] Pulmonary Function Laboratory defines hypoxemia as a PaO2 <56 mm Hg or a %HbO2 <89%. Starting on May of 2024 the [facility] Pulmonary Function Laboratory utilizes race neutral GLI [...] examination. Electronically signed by: Julian Stephens M.D. us Harish Lares MD IMG XR PROCEDURES Final R esult * SCAN - LABS (06/28/2024) us Provider Scanning Final Result from Last 3 Months Insurance [facility] MEDICARE T MEDICARE T MEDICARE Advance Directives For more information, please contact: [phone] * Full Code (Latest Code Status on File) Date Activated Date Inactivated Comments 12/13/2023 3:04 PM 12/13/2023 7:21 PM * Full Code Date Activated Date Inactivated Comments 09/10/2022 11:20 AM 09/10/2022 4:40 PM Care Teams Shipboard Intelligence Analyst Relationship Specialty Start Date End Date Yusuf Quintanilla MD [address] [place] [address] PCP - General 10/03/15
--- OUTSIDE RECORDS SUMMARY | 2024-08-18 03:16 | XMS_ITS | Encounter Summary ---
Author Organization [facility] Address [address] [place] [address] Phone Care Team Providers Care Safety Fire Boss Name Role Phone Yusuf Quintanilla MD Primary Care Provider [phone] Encounter Details Date Type Department Care Team [...] on file Legal Sex Male 8:32 AM NURSING UNIT CLERK Gender Identity Male 09/02/2020 8:09 AM CDT [...] on filedocumented in this encounter Care Teams Safety Fire Boss Relationship Specialty Start Date End Date Yusuf Quintanilla MD [address] [place] [address] PCP - General 10/03/15 documented as of this encounter
--- OUTSIDE RECORDS SUMMARY | 2024-08-18 03:16 | XMS_ITS | Encounter Summary ---
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
--- OUTSIDE RECORDS SUMMARY | 2024-08-18 03:16 | XMS_ITS | Referral Summary ---
Author Organization [facility] [address] [place] [address] 162 [address] [facility] [address] [place] [address] Care Team Providers Care Pigment Supplier Name Role Phone Yusuf Quintanilla MD Primary Care Provider Encounters Date Type Department Care Team Description 08/14/2024 10:30 AM CDT Infusion [facility] [address] [place] [phone] Other iron deficiency anemia (Primary Dx) 08/08/2024 9:45 AM CDT Office Visit [facility] Cardiology [address] [facility] [address] [place] [address] Taras Ramirez MD Hx of CABG (Primary Dx); Pulmonary hypertension (HCC); Stage 3a chronic kidney disease (HCC) 08/07/2024 1:30 PM CDT Infusion [facility] [address] [facility] 7th [place] [address] Other iron deficiency anemia (Primary Dx) 08/06/2024 Orders Only [facility] Pulmonary [address] [facility] 8th [place] [address] [place] [phone] Day Snell RN 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) 08/01/2024 Telephone [facility] Medical [facility] Cardiology [address] [facility] [address] [place] [address] Taras Ramirez MD 08/01/2024 Telephone [facility] Pulmonary [address] [facility] 8th [place] [address] [place] [address] Mary Pantoja, JERICA 07/31/2024 Documentation [facility] Pulmonary [address] [facility] 8th [place] [address] [place] [address] Em Harp, ALYSON 07/31/2024 1:30 PM CDT Infusion [facility]fusion [facility] [address] [place] [phone] Other iron deficiency anemia (Primary Dx) 2024 Telephone [facility] [address] [place] [phone] No, Physician 07/27/2024 Telephone [facility]fusion [facility] [address] [place] [phone] Carola Benitez, DIANNA 07/24/2024 Telephone [facility] Pulmonary [address] [facility] Medicine 8th [place] [address] [place] [address] Mary Pantoja, JERICA 07/20/2024 Orders Only [facility] [address] [place] [phone] Day Snell, DIANNA 07/19/2024 Telephone [facility] Pulmonary [address] [facility] 8th [place] [address] [place] [address] Day Snell, DIANNA Prior Auth ( IV feraheme) 07/19/2024 Orders Only [facility]fusion [facility] [address] [place] [address] Day Snell, DIANNA 07/19/2024 12:37 PM CDT - 07/19/2024 11:59 PM CDT Hospital Encounter [facility] [address] [place] [address] 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); Chronic obstructive pulmonary disease with acute exacerbation (HCC); Chronic right-sided CHF (congestive heart failure) (HCC) Discharge Disposition: Discharge to home or self care 07/19/2024 2:31 PM CDT - 07/19/2024 11:59 PM CDT Hospital Encounter [facility] Cardiac Diagnostic Lab [address] [address] 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); Chronic obstructive pulmonary disease with acute exacerbation (HCC); Chronic right-sided CHF (congestive heart failure) (HCC) Discharge Disposition: Discharge to home or self care 07/19/2024 1:50 PM CDT Office Visit [facility] Pulmonary [address] [place] [address] [place] [address] Mary Pantoja NP 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) 07/19/2024 12:54 PM CDT - 07/19/2024 11:59 PM CDT Hospital Encounter [facility] Pulmonary [address] [facility] [address] [place] [address] 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); Chronic obstructive pulmonary disease with acute exacerbation (HCC); Chronic right-sided CHF (congestive heart failure) (HCC) Discharge Disposition: Discharge to home or self care 07/06/2024 Documentation [facility] Pulmonary [address] [facility] Medicine [facility] [place] [address] [place] [address] Em Harp, ALYSON 07/03/2024 Telephone [facility] Pulmonary [address] [place] [address] [place] [address] Day Snell, DIANNA 07/03/2024 Telephone [facility] Pulmonary [address] [place] [address] Day Snell, RN 07/02/2024 Orders Only [facility] Pulmonary [address] [place] [address] Day Snell, DIANNA 06/28/2024 Orders Only [facility] Scanning, Provider 06/28/2024 Telephone [facility] Pulmonary [facility] [address] [place] [phone] Day Snell RN 06/28/2024 Orders Only [facility] Pulmonary [address] [place] [address] [place] [phone] Day Snell, DIANNA 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); Chronic right-sided CHF (congestive heart failure) (HCC); High risk medication use 06/27/2024 3:00 PM STAFF DEVELOPER Telemedicine [facility] Pulmonary [address] [place] [address] [place] [phone] Harish Lares MD 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); Chronic obstructive pulmonary disease with acute exacerbation (HCC); Chronic right-sided CHF (congestive heart failure) (HCC) 06/22/2024 Telephone [facility] Pulmonary [address] [place] [address] Medicine [facility] [place] [address] Day Snell RN 06/22/2024 Documentation [facility] Pulmonary [address] [place] [address] [place] [address] Em Harp, CLINICAL SAFETY MANAGER 06/21/2024 Documentation [facility] Pulmonary [address] [place] [address] [place] [address] Em Harp, CLINICAL SAFETY MANAGER from Last 3 Months Allergies Active Allergy [...] 3 (three) times a day 180 tablet 4 08/24/19 25 Active Opsumit 10 mg tablet Take 1 tablet (10 mg total) by mouth daily 30 tablet 4 11/22/19 25 Active furosemide (LASIX) 20 [...] total) by mouth daily 90 tablet 2 04/0908/09/19 26 Active Active Problems Problem Noted Date [...] on file 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 Gender Identity Male 09/02/2020 8:09 AM CDT [...] 08/08/2024 9:47 AM CDT Plan of Treatment Not on file [...] N/A EXTERNAL LAB SCRIBED eGFR in NonAfrican Filipino 60 = or > 60 EXTERNAL LAB Blood 08/02/2024 us Taras Ramirez MD LAB BLOOD ORDERABLES Fin al Result EXTERNAL LAB * TRANSTHORACIC ECHO (TTE) COMPLETE W DOPPLER/CF WO CONTRAST (07/19/2024 4:26 PM CDT) Anatomical Region Laterality Modality Ultrasound 07/19/2024 2:53 PM CDT Narrative 07/20/2024 6:42 AM CDT [facility] [place] [address] Transthoracic Echocardiographic Report Patient Name: ONI KO J : 1945 (78y 11m) Gender: M Study Date: 07/19/2024 02:53:43 PM Ht(Inch): 69 Wt(Lb): 154.98 BSA: 1.85 Safety Specialist: Paula Waters Location: [facility] Order Provider: HARISH LARES Heart Rate: [...] cm LV Thickness Ratio 0.9 LVOT Peak Jeoavny 1.0 m/s [ 0.7 - 1.1 ] [...] Procedure Note Lucio Tran MD - 07/20/2024 [facility] [place] [place] [address] [place] [address] Transthoracic Echocardiographic Report Patient Name: ONI KO J : 1945 (78y 11m) Gender: M Study Date: 07/19/2024 02:53:43 PM Ht(Inch): 69 Wt(Lb): 154.98 BSA: 1.85 Safety Specialist: Paula Waters Location: [facility] Order Provider:HARISH LARES Heart Rate: 51 [...] LA Length 2C 4.08 cm MV Decel Oefc762.23 msec [ 104.00 - 258.00 ] LA [...] [ 1.00 - 2.00 ] PI ED Vzq151.45 m/sec PI Peak PG 24 mmHg PI PHT 420.97 sec Electronically Signed By: Lucio Tran MD 07/20/2024 6:41:36 AM CDT Harish Lares MD CV ECHO PROCEDURES Final Result * Pulmonary Function Test - (07/19/2024 1:06 PM CDT) FVC PRE 3.10 L [facility] FVC %PRE PRED 83 % [facility] FEV1 PRE 1.39 L [facility] FEV1 %PRE PRED 50 % [facility] FEV1/FVC PRE 44.7 % [facility] Anatomical Region Laterality Modality PFT 07/19/2024 12:5 7 PM CDT Narrative 07/19/2024 1:28 PM CDT PFT performed at:->[facility] Adult PFT Lab- [id number] Procedure:->Spirometry Pulmonary [...] and %HbO2 is age dependent. However, the [facility] Pulmonary Function Laboratory defines hypoxemia as a PaO2 <56 mm Hg or a %HbO2 <89%. Starting on May of 2024 the [facility] Pulmonary Function Laboratory utilizes race neutral [...] Final Result from Last 3 Months Insurance [facility] MEDICARE [facility] MEDICARE AETNA MEDICARE Advance Directives For more information, please contact: [phone] * Full Code (Latest Code Status on File) Date Activated Date Inactivated Comments 12/13/2023 3:04 PM 12/13/2023 7:21 PM * Full Code Date Activated Date Inactivated Comments 09/10/2022 11:20 AM 09/10/2022 4:40 PM Care Teams Pigment Supplier Relationship Specialty Start Date End Date Yusuf Quintanilla MD [address] [place] [id number] (work) PCP - General 10/03/15
--- OUTSIDE RECORDS SUMMARY | 2024-08-18 03:16 | XMS_ITS | Clinical Summary ---
Author Organization [facility] Address [address] [facility] 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 10/09/2015 Family [...] (#1) 2023 Medical Devices Implanted Type Area Commercial Real Estate Assistant Device Identifier Shelf Expiration Date Model / Serial / Lot Pledget Ptfe 6x6mm [id number] - [id number] Implanted:Qty: 1 on 10/21/2015 by Marce Orr MD at [facility] N/A: Chest [employer] 06/29/2020 [id number] / / [id number] [place] [address] MEDICARE Advance Directives For more information, please contact: [phone] Documents on File Type Date Recorded Patient Pasta Press Operator Expl anation Advance Directive POA 10/21/2015 6:03 AM Advance Directive Living Will 10/21/2015 6:03 AM roderick ko SR * Full Code (Latest Code Status on File) Date Activated Date Inactivated Comments 10/21/2015 12:09 PM 10/22/2015 11:30 AM * Full Code Date Activated Date Inactivated Comments 10/21/2015 5:01 AM 10/21/2015 12:09 PM Care Teams Bale Coverer Relationship Specialty Start Date End Date Yusuf Quintanilla MD [address] [place] [phone] PCP - General Family Practice 10/08/15
--- OUTSIDE RECORDS SUMMARY | 2024-08-18 03:16 | XMS_ITS | Clinical Summary ---
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
--- OUTSIDE RECORDS SUMMARY | 2024-08-18 03:16 | XMS_ITS | Clinical Summary ---
Author Organization [facility] Address [address] [facility] [place] [address] Care Team Providers Care Oyster Fisherman Name Role Phone Unavailable Primary Care Provider Unavailabl e Source Comments [facility],non-owned Affiliates and Associated Physician Practices is amultiple site organization consisting of ambulatory clinics and hospital sitesin [place], [place] and [place]. This disclosure is being madepursuant to the Care Everywhere program and may not contain all information available regarding this patient. 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
[2024-08-18] MEDS: PANTOPRAZOLE SODIUM IV 40 MG VIAL IV PUSH ×2 (03:18→07:48)
[2024-08-18 03:24] LABS: Anisocytosis 2+
[2024-08-18 03:25] LABS: Ovalocytes 2+; Tear Drop Cells 1+
[2024-08-18 03:26] LABS: Schistocytes Rare
[2024-08-18] MEDS: TUBING, BLOOD SET 1 EACH XX ×2 (04:23→06:43)
[2024-08-18] MEDS: SODIUM CHLORIDE 0.9% IV 250 ML 30 ML IV CONT (04:23)
--- NOTE | 2024-08-18 05:45 | P.HP_ITS ---
H&P: HPI History of Present Illness Date/Time: 08/18/24 05:45 Chief Complaint: Black stools, belly pain Narrative: Pleasant 79-year-old male with a past medical history right-sided heart failure, combined systolic diastolic heart failure, chronic hypoxic respiratory failure on 6 L nasal cannula, severe pulmonary hypertension, obstructive sleep apnea, coronary artery disease status post three-vessel CABG, essential hypertension and iron deficiency anemia with multiple recent iron infusions who presented to the ER via EMS after passing a melenic stool. The patient reported that he has been having 2 of generalized abdominal pain and started having some dry heaves at home. He denied actually having any emesis but on arrival to the ER the patient had evidence of bright red blood in his oral mucosa and at the time my evaluation he had residual dried blood blow his nose. He denied any chest pain or any increased shortness of breath from baseline but he is on chronic home O2 of 4-5 L nasal cannula. He had been having some upper back pain for the last couple of weeks. He denies any recent NSAID use. He had been receiving iron infusions at [facility] earlier this month. Patient's was noted to be hypotensive on arrival to the ER with systolic blood pressures ranging between the mid 60s in mid 80s. He received 1 L fluid bolus and 2 units of packed red blood cells. Patient's abdomen was noted to be distended but nontender to palpation. After 1 L of fluid and the initial 1 unit of blood patient still remained hypotensive. Patient reports feeling severely chilled but is afebrile. He reports that he always feels cold. He is not on any anticoagulants beyond the 81 mg aspirin for anti-platelet effect. He reports that he feels like he is going to have incontinence of both bowel and bladder with any palpation of his abdomen. He denies any recent dysuria. His bladder was noted to be distended on my review of the CT. Radiologic interpretation of CT is pending. I do not appreciate any free air. Review of Systems 2 Review of Systems: 12 systems were reviewed with pertinent positives and negatives per HPI. Except as documented in the HPI, all other systems were reviewed and are negative. [facility] Past Medical History Medical History (Updated 08/18/24 @ 06:42 by Lisa Fonseca DO) Central sleep apnea Lumbar stenosis with neurogenic claudication Lumbar radiculopathy Neuropathy Chronic respiratory failure with hypoxia, on home oxygen therapy Combined systolic and diastolic cardiac dysfunction Severe pulmonary hypertension Right ventricular systolic dysfunction Obstructive sleep apnea Intolerant to CPAP. Benign essential hypertension Erectile dysfunction Hypogonadism Solitary pulmonary nodule Atherosclerosis of aorta Generalized anxiety disorder Raynaud's syndrome without gangrene Hypertension Hypothyroidism Hyperlipidemia Depression Emphysema lung Coronary artery disease Surgical History Surgical History History of three vessel coronary artery bypass History of cardiac cath Family History Family History Father Hypertension Alcoholism Social History Social History (Updated 08/18/24 @ 06:29 by Lisa Fonseca DO) Social History: Surrogate medical decision maker: Constantine Ko JrAva, son. Code status: DNR/DNI Smoking packs per day: 1 Smoking cigarettes per day: 20.0 Years smoked: 40 Smoking pack-years: 40.00 Smoking status: Former smoker Tobacco type: cigarettes Smoking end date: 01/04/04 Alcohol intake: current Drinks per week: 1 Substance use: never Substance use type: does not use Do You Feel Safe in your Home?: Yes Lack of Transportation: No Lack of Food: Never True Current Housing: I Have Housing Concerned About Future Housing: No Difficulty Paying Gas/Electric Bills: No Difficulty Paying for Meds: No Currently Unemployed: No Education: High School Diploma/GED Difficulty w/ Childcare or Family Care: No Living arrangements: with family Additional living arrangements comments: Lives with spouse in [place]. Occupation/Education: retired Spiritual care concerns: No Meds Home Medications and Allergies Home Medications ?Medication ?Instructions ?Recorded ?Confirmed ?Type aspirin 81 mg chewable tablet 81 mg PO DAILY 04/22/20 04/27/24 History lisinopril 20 mg tablet 10 mg PO DAILY 06/28/22 04/27/24 History nebulizers #1 ea 07/08/22 01/16/24 Rx ipratropium 0.5 mg-albuterol 3 mg 3 ml inhalation QID PRN shortness 07/13/22 04/27/24 Rx (2.5 mg base)/3 mL nebulization of breath #180 mL soln macitentan 10 mg tablet (Opsumit) 10 mg PO DAILY 01/14/23 04/27/24 History albuterol sulfate 90 mcg/actuation 1 inh inhalation QID PRN shortness 05/30/23 04/27/24 Rx aerosol inhaler of breath or wheezing #8.5 grams furosemide 40 mg tablet 40 mg PO DAILY #90 tabs 12/19/23 04/27/24 Rx potassium chloride 20 mEq 20 meq PO DAILY@0800 #90 tabs 12/19/23 04/27/24 Rx tablet,extended release (K-Tab) Breztri Aerosphere 160 2 inh inhalation BID #10.7 grams 03/26/24 04/27/24 Rx mcg-9mcg-4.8mcg/actuation HFA aerosol inhaler (bkkgsjvdsc-yfrelwdd-[id number]) citalopram 20 mg tablet 40 mg (2 x 20 mg) PO DAILY #180 03/26/24 04/27/24 Rx tabs azithromycin 500 mg tablet 500 mg PO .three times per week 90 04/23/24 04/27/24 Rx days #36 tabs methocarbamol 750 mg tablet 750 mg PO TID PRN muscle spasm #30 05/25/24 Rx tabs prednisone 20 mg tablet See Rx Instructions .Route 07/05/24 Rx .COMPLEX #30 tabs spironolactone 25 mg tablet 25 mg PO DAILY #90 tabs 07/05/24 Rx atorvastatin 80 mg tablet 80 mg PO DAILY #90 tabs 08/06/24 Rx mirtazapine 15 mg tablet See Rx Instructions .Route 08/06/24 Rx .COMPLEX #90 tabs Allergies Allergy/AdvReac Type Severity Reaction Status Date / Time crab Allergy Intermediate Hives Verified 08/18/24 02:16 tiotropium (From Spiriva Allergy Mild Dizziness Verified 08/18/24 02:16 with HandiHaler) Vital Signs Vital Signs - 24 hr 08/18/24 02:31 08/18/24 02:39 08/18/24 02:46 Temperature 97.6 F Pulse Rate 84 91 71 Respiratory Rate 19 22 H 22 H Blood Pressure 72/60 L 83/58 L 77/65 L Pulse Oximetry 94 Oxygen Delivery Nasal Cannula Oxygen Flow Rate 6 08/18/24 03:01 08/18/24 03:16 08/18/24 03:31 Temperature Pulse Rate 69 77 71 Respiratory Rate 29 H 22 H 25 H Blood Pressure 83/48 L 82/59 L 77/53 L Pulse Oximetry 96 100 Oxygen Delivery Oxygen Flow Rate 08/18/24 03:46 08/18/24 04:01 08/18/24 04:16 Temperature Pulse Rate 72 65 Respiratory Rate 22 H 14 Blood Pressure 72/49 L 72/56 L 72/47 L Pulse Oximetry 97 Oxygen Delivery Oxygen Flow Rate 08/18/24 04:23 08/18/24 04:24 08/18/24 04:26 Temperature 97.7 F Pulse Rate 69 77 71 Respiratory Rate 24 H 25 H Blood Pressure 72/47 L 64/50 L 66/47 L Pulse Oximetry 95 96 94 Oxygen Delivery Oxygen Flow Rate 08/18/24 04:31 08/18/24 04:33 08/18/24 04:36 Temperature Pulse Rate 65 63 66 Respiratory Rate Blood Pressure 71/53 L 76/49 L 79/47 L Pulse Oximetry 92 95 92 Oxygen Delivery Oxygen Flow Rate 08/18/24 04:41 08/18/24 04:52 08/18/24 05:01 Temperature 97.8 F Pulse Rate 65 65 75 Respiratory Rate 22 H 21 H Blood Pressure 73/49 L 72/45 L 84/64 L Pulse Oximetry 94 93 96 Oxygen Delivery Oxygen Flow Rate 08/18/24 05:07 08/18/24 05:11 Temperature Pulse Rate 67 63 Respiratory Rate 18 21 H Blood Pressure 87/61 L 86/53 L Pulse Oximetry 95 98 Oxygen Delivery Oxygen Flow Rate Exam 2 Narrative: Weight 68.4 kg BMI 21 Const: Other: Frail, elderly, acutely ill-appearing, wrapped up with blankets around his head and neck with multiple lying his covering his body only is faces exposed HENMT: Other: Head is normocephalic atraumatic, mucous membranes are dry, no oral pharyngeal erythema, dried blood to the corners of the mouth and upper lip just under the nose Eyes: Other: Pupils are equal and reactive, lens implants noted, positive conjunctival pallor, no scleral icterus Neck: Other: No lymphadenopathy, trachea midline Resp: Other: Clear to auscultation anterior barron, posterior filled not evaluated, no increased work of breathing Cardio: Other: Regular rate, regular rhythm, 2+ bilateral radial pedal pulses, no JVD GI: Other: Distended, soft, nontender, normoactive bowel sounds, no organomegaly Skin: Other: Multiple areas of bruising to the dorsum of bilateral arms, distal extremities are cool to touch, 4-5 second cap refill, mottling of the bilateral lower extremity Neuro: Other: Alert and oriented, conversational, speech is clear, no facial asymmetry, moves all extremities equally Extrem: Other: No cyanosis, no edema Psych: Other: Appropriate mood and affect, pleasant and cooperative H&P: Results Labs Labs: Laboratory Tests 08/18/24 02:26 08/18/24 02:26 08/18/24 02:26 WBC 23.3 H RBC 2.78 L Hgb 6.9 L* Hct 25.4 L MCV 91.4 MCH 24.8 L MCHC 27.2 L RDW 24.7 H Plt Count 302 MPV 10.4 Immature Gran % (Auto) 5.4 H Neut % (Auto) 83.9 H Lymph % (Auto) 6.9 L [place] % (Auto) 3.5 Eos % (Auto) 0.1 Baso % (Auto) 0.2 Lymph # (Auto) 1.61 [place] # (Auto) 0.8 H Eos # (Auto) 0.0 Baso # (Auto) 0.0 Abs Immat Gran (auto) 1.25 H Absolute Neuts (auto) 19.5 H Absolute Nucleated RBC 0.060 H Band Neutrophils % Not Reportable Nucleated RBC % 0.3 H Platelet Estimate Adequate Anisocytosis 2+ Tear Drop Cells 1+ Ovalocytes 2+ Schistocytes Rare PT 15.5 H INR 1.2 APTT 23.9 Sodium 134 L Potassium 5.0 Chloride 104 Carbon Dioxide 14 L Anion Gap 16 H BUN 81 H D Creatinine 1.46 H Estim Creat Clear Calc Not Reportable Estimated GFR 47 L Glucose 237 H Calcium 8.1 L Magnesium 2.0 Total Bilirubin 0.7 AST 62 H ALT 47 Alkaline Phosphatase 134 H Total Protein 5.0 L Albumin 2.6 L Blood Type O Positive Antibody Screen Negative Crossmatch See Detail Assessment and Plan Assessment and plan (1) Hemorrhagic shock: Code(s): R57.8 - Other shock Status: Acute (2) Acute blood loss anemia: Code(s): D62 - Acute posthemorrhagic anemia Status: Acute (3) Acute upper gastrointestinal bleeding: Code(s): K92.2 - Gastrointestinal hemorrhage, unspecified Status: Acute (4) Leukocytosis: Qualifiers: Leukocytosis type: leukemoid reaction Qualified Code(s): D72.823 - Leukemoid reaction Code(s): D72.829 - Elevated white blood cell count, unspecified Status: Acute (5) Chronic respiratory failure with hypoxia, on home oxygen therapy: Code(s): J96.11 - Chronic respiratory failure with hypoxia; Z99.81 - Dependence on supplemental oxygen Status: Chronic (6) Combined systolic and diastolic cardiac dysfunction: Code(s): I51.89 - Other ill-defined heart diseases Status: Acute (7) Right ventricular systolic dysfunction: Code(s): I51.89 - Other ill-defined heart diseases Status: Acute (8) Protein-calorie malnutrition, moderate: Code(s): E44.0 - Moderate protein-calorie malnutrition Status: Acute Plan Patient has hemorrhagic shock due to upper GI bleed. Gastroenterology has been consulted. Patient received IV push Protonix 40 mg x 1 in the ER. Will given additional 40 mg IV and then initiate Protonix drip. At the time documentation CT of the abdomen and pelvis with contrast is still pending. Patient's blood pressures after 1 L of fluid and 1.5 units of blood has improved to 97/58. Patient has not had any further evidence of bleeding. Heart rate remains stable. Patient does have marked leukocytosis suspected to be due luekamoid reaction. However on my review CT and may be some evidence of infection at the right lung base versus chronic changes are atelectasis. Awaiting official radiologic interpretation determine whether to add antibiotic coverage. If evidence of varices will add octreotide drip. If evidence of large vessel bleed/active extravasation the patient would benefit from transfer to tertiary care instead of admissions at this facility. Given the patient's multiple comorbidities and low blood pressures if the patient does remain at the facility he would be better served by close monitoring in the ICU if he is able to stay at this facility. ICU admission would require acceptance by basket operator. Patient does have marked elevation in BUN which could be due to GI bleed but also has acute kidney injury. This could be due to hypovolemia/hypotension or possible some component of urinary outlet obstruction. The patient's bladder appears quite large on imaging. Will have nursing staff check postvoid residual. Patient has combined systolic and diastolic heart failure as well as reduced right-sided cardiac output with severe pulmonary hypertension. Will need to monitor fluid status closely given these multiple factors. Currently patient is stable on his home O2. Patient does have significant protein calorie malnutrition with low serum albumin. He may benefit from albumin supplementation if hypotension persists. Would benefit from dietary supplements. 60 minute spent critical care activities. Due to a high probability of clinically significant, life threatening deterioration, the patient required my highest level of preparedness to intervene emergently and I personally spent this critical care time directly and personally managing the patient. This critical care time included obtaining a history; examining the patient; pulse oximetry; ordering and review of studies; arranging urgent treatment with development of a management plan; evaluation of patient's response to treatment; frequent reassessment; and discussions with other providers. It was exclusive of separately billable procedures and treating other patients and teaching time. Please see Assessment and Plan section and the rest of the note for further information on patient assessment and treatment. Quality VTE Prophylaxis VTE prophylaxis: mechanical ordered (SCDs) Hospitalist MIPS Advance Care Plan I have confirmed that the patient's Advanced Care Plan is present, code status is documented, or surrogate decision maker is listed in patient medical record.: Yes Medication Reconciliation I have utilized all available resources to obtain, update and review the patients current medications (includes all prescriptions, OTC, herbals, cannabis, and nutritional supplements).: Yes
[2024-08-18 07:21] LABS: Add Urine Microscopic? YES; Appearance Urine Clear (Clear); Bacteria Urine None Seen /hpf; Bilirubin Urine Negative (Negative); Blood Urine Trace (Negative); Color Urine Yellow (Yellow); Glucose Urine UA Negative (Negative); Ketones Urine Negative (Negative); Leukocyte Esterase Ur Negative LEU/UL (Negative); Need Manual Microscopic Reviewed; Nitrate Urine Negative (Negative); Protein Urine Negative (Negative); RBC Urine 0-2 /hpf (0-2); Specific Grav Ur 1.019 (1.001-1.035); Squamous Epithelial Cell Urine None Seen /hpf (Few); Urobilinogen Urine 0.2 mg/dL (<2.0); WBC Urine 0-5 /hpf (0-3)
[2024-08-18] MEDS: PANTOPRAZOLE SODIUM IV 80 MG in SODIUM CHLORIDE 0.9% IV 500 ML 50 MG IV CONT (08:04)
[2024-08-18 08:11] LABS: Hematocrit 29.1 % (42.0-52.0); Hemoglobin 8.7 g/dL (14.0-18.0)
--- NOTE | 2024-08-18 10:20 | PC.NURSE ---
Pt had small bloody bowel movement on bed vidal, EDP aware
--- NOTE | 2024-08-18 10:52 | PC.NURSE ---
Spoke with Marco from [facility] transfer center. Pt is admitted to [facility] ICU under Dr. Tere Corrigan. States no bed available at this time, will call back with bed placement.
[2024-08-18 14:11] LABS: Hematocrit 27.8 % (42.0-52.0); Hemoglobin 8.4 g/dL (14.0-18.0)
[2024-08-18] MEDS: SODIUM CHLORIDE 0.9% IV 1,000 ML 150 ML IV CONT (14:59)
[2024-08-18 20:43] LABS: Hematocrit 26.1 % (42.0-52.0); Hemoglobin 7.9 g/dL (14.0-18.0)
--- NOTE | 2024-08-18 21:42 | PC.NURSE ---
this rn spoke with the [facility] transfer center to give patient update report
[2024-08-18] MEDS: SODIUM CHLORIDE 0.9% IV 1,000 ML 150 ML (22:18)
[2024-08-19] VITALS (28 sets, daily range): BP systolic 96–155; BP diastolic 53–76; PULSE 67–86; RESP 14–23; TEMP 36.2–37; O2SAT 76–98; BMI 19.7
[2024-08-19] MEDS: SODIUM CHLORIDE 0.9% IV 1,000 ML 150 ML (05:20)
[2024-08-19 06:09] LABS: Hematocrit 26.9 % (42.0-52.0); Hemoglobin 7.8 g/dL (14.0-18.0)
--- NOTE | 2024-08-19 07:39 | PC.NURSE ---
Spoke with Vijaya at transfer line, gave update, states waiting on discharges today for a room to be available
[2024-08-19 08:09] LABS: Hematocrit 26.4 % (42.0-52.0); Hemoglobin 7.8 g/dL (14.0-18.0)
--- NOTE | 2024-08-19 09:17 | ADMGEN ---
This patient, Constantine Ko, was admitted to 3 Medical Room 349-01 @ 09. Patient/family oriented to hospital policies and general routines including ID bracelet, bed and alarms, visiting hours, pain management, procedures, bathroom and other care routines, personal items, smoking policy, room service/diet, and visiting hours. Information on how to activate the Rapid Response Team has been discussed. Patient/Family are encouraged to report perceived risks to care and to ask questions if they do not understand what they are told or what they should do.
[2024-08-19] MEDS: predniSONE 20 MG TABLET BY MOUTH (12:52)
[2024-08-19] MEDS: SILDENAFIL CITRATE 20 MG TABLET 40 MG PO ×2 (12:52→17:07)
[2024-08-19 14:06] LABS: Hematocrit 26.2 % (42.0-52.0); Hemoglobin 7.7 g/dL (14.0-18.0); Mean Corpuscular HGB Conc 29.4 g/dl (32-36); Mean Corpuscular Hemoglobin 25.6 pg (26-34); Mean Platelet Volume 9.4 fl (7.4-10.4); Platelet Count Result 123 k/mm3 (150-375); Red Blood Count 3.01 M/mm3 (4.6-6.20); Red Cell Distribution Width 23.2 % (11.5-14.5); White Blood Count 13.3 K/mm3 (4.5-10.0)
[2024-08-19 14:17] LABS: Anion Gap 5 mmol/L (4-12); Blood Urea Nitrogen 41 mg/dL (9-20); Calcium 7.8 mg/dL (8.4-10.2); Carbon Dioxide 21 mmol/L (22-30); Chloride 111 mmol/L (98-107); Estimated CRCL calculation 54 ml/min; Estimated Glomerular Filt Rate > 60; Glucose 93 mg/dL (65-110); Potassium 3.4 mmol/L (3.4-5.0); Sodium 137 mmol/L (137-145)
--- NOTE | 2024-08-19 14:35 | WPDGICN ---
Assessment and Plan Assessment and plan (1) Acute upper gastrointestinal bleeding: Code(s): K92.2 - Gastrointestinal hemorrhage, unspecified Status: Acute Assessment and Plan: s/p prbc no more obvious bleeding now BP is better now egd tomorrow protonix (2) Hematemesis: Code(s): K92.0 - Hematemesis Status: Acute Assessment and Plan: egd (3) Hemorrhagic shock: Code(s): R57.8 - Other shock Status: Acute Assessment and Plan: treated, s/p prbc (4) Acute on chronic anemia: Code(s): D64.9 - Anemia, unspecified Status: Acute (5) Combined systolic and diastolic cardiac dysfunction: Code(s): I51.89 - Other ill-defined heart diseases Status: Acute (6) Pulmonary hypertension: Code(s): I27.20 - Pulmonary hypertension, unspecified Status: Chronic (7) Compression fracture: Status: Acute Assessment and Plan: noted in recent CT scan (8) COPD (chronic obstructive pulmonary disease): Code(s): J44.9 - Chronic obstructive pulmonary disease, unspecified Status: Acute GI Consult Note Consult date/time: 08/19/24 14:35 Reason for consult: coffee ground emesis HPI: Constantine Ko is a 79 year old male with past medical history right-sided heart failure, combined systolic diastolic heart failure, chronic hypoxic respiratory failure on 6 L nasal cannula, severe pulmonary hypertension, obstructive sleep apnea, coronary artery disease status post three-vessel CABG, essential hypertension and iron deficiency anemia with multiple recent iron infusions. He came to ER yesterday and noted worsening anemia and was hypotensive, had coffee ground emesis and melena. He is a patient at [facility] and initial plan was to transfer him there but no bed available finally he is admitted. No more episodes of gib since. He denies any recent NSAID use, he uses baby asa. Last colonoscopy 2020, no recent EGD. He received 1 L fluid bolus and 2 units of packed red blood cells, BP better now. On protonix. Review of Systems Constitutional: Constitutional: Reports fatigue Eyes: Eyes: Denies blurry vision ENT: Reports Normal hearing present Cardiovascular: Cardiovascular: Denies chest pain Respiratory: Respiratory: Reports dyspnea on exertion Gastrointestinal: Gastrointestinal: Reports melena Genitourinary: Genitourinary: Denies hematuria Musculoskeletal: Musculoskeletal: Reports back pain Integumentary/Breasts: Skin/Breast: Denies rash Neurologic: Denies confusion Psychiatric: Psychiatric: Denies confusion [facility] Past Medical History Medical History (Updated 08/19/24 @ 14:40 by Jem Guerra MD) Acute on chronic anemia Hematemesis Central sleep apnea Lumbar stenosis with neurogenic claudication Lumbar radiculopathy Neuropathy Chronic respiratory failure with hypoxia, on home oxygen therapy Combined systolic and diastolic cardiac dysfunction Severe pulmonary hypertension Right ventricular systolic dysfunction Obstructive sleep apnea Intolerant to CPAP. Benign essential hypertension Erectile dysfunction Hypogonadism Solitary pulmonary nodule Atherosclerosis of aorta Generalized anxiety disorder Raynaud's syndrome without gangrene Hypertension Hypothyroidism Hyperlipidemia Depression Emphysema lung Coronary artery disease Surgical History Surgical History History of three vessel coronary artery bypass History of cardiac cath Family History Family History Father Hypertension Alcoholism Social History Social History (Updated 08/18/24 @ 06:29 by Lisa Fonseca DO) Social History: Surrogate medical decision maker: Constantine Ko Jr., son. Code status: DNR/DNI Smoking packs per day: 1 Smoking cigarettes per day: 20.0 Years smoked: 40 Smoking pack-years: 40.00 Smoking status: Former smoker Tobacco type: cigarettes Smoking end date: 10/20/04 Alcohol intake: never Drinks per week: 1 Substance use: never Substance use type: does not use Do You Feel Safe in your Home?: Yes Lack of Transportation: No Lack of Food: Never True Current Housing: I Have Housing Concerned About Future Housing: No Difficulty Paying Gas/Electric Bills: No Difficulty Paying for Meds: No Currently Unemployed: No Education: Decline to Answer Difficulty w/ Childcare or Family Care: No Living arrangements: with family Additional living arrangements comments: Lives with spouse in [place]. Occupation/Education: retired Spiritual care concerns: No Meds Home Medications and Allergies Home Medications ?Medication ?Instructions ?Recorded ?Confirmed ?Type aspirin 81 mg chewable tablet 81 mg PO DAILY 04/22/20 08/19/24 History lisinopril 20 mg tablet 10 mg PO DAILY 06/28/22 08/19/24 History nebulizers #1 ea 07/08/22 08/19/24 Rx ipratropium 0.5 mg-albuterol 3 mg 3 ml inhalation QID PRN shortness 07/13/22 08/19/24 Rx (2.5 mg base)/3 mL nebulization of breath #180 mL soln macitentan 10 mg tablet (Opsumit) 10 mg PO DAILY 01/14/23 08/19/24 History albuterol sulfate 90 mcg/actuation 1 inh inhalation QID PRN shortness 05/30/23 08/19/24 Rx aerosol inhaler of breath or wheezing #8.5 grams furosemide 40 mg tablet 40 mg PO DAILY #90 tabs 12/19/23 08/19/24 Rx Breztri Aerosphere 160 2 inh inhalation BID #10.7 grams 03/26/24 08/19/24 Rx mcg-9mcg-4.8mcg/actuation HFA aerosol inhaler (szxylhpwpr-gtokcyzl-cnduyqyxfs) citalopram 20 mg tablet 40 mg (2 x 20 mg) PO DAILY #180 03/26/24 08/19/24 Rx tabs azithromycin 500 mg tablet 500 mg PO .three times per week 90 04/23/24 08/19/24 Rx days #36 tabs methocarbamol 750 mg tablet 750 mg PO TID PRN muscle spasm #30 05/25/24 08/19/24 Rx tabs prednisone 20 mg tablet See Rx Instructions .Route 07/05/24 08/19/24 Rx .COMPLEX #30 tabs spironolactone 25 mg tablet 25 mg PO DAILY #90 tabs 07/05/24 08/19/24 Rx atorvastatin 80 mg tablet 80 mg PO DAILY #90 tabs 08/06/24 08/19/24 Rx mirtazapine 15 mg tablet See Rx Instructions .Route 08/06/24 08/19/24 Rx .COMPLEX #90 tabs ferrous sulfate 137 mg (45 mg 137 mg PO BID 08/19/24 08/19/24 History iron) tablet,extended release (Slow Fe) hydrocodone 10 mg-acetaminophen 1 tablet PO BID PRN pain 08/19/24 08/19/24 History 325 mg tablet losartan 25 mg tablet 25 mg PO DAILY 08/19/24 08/19/24 History metoprolol succinate 25 mg 25 mg PO DAILY 08/19/24 08/19/24 History tablet,extended release 24 hr potassium chloride 20 mEq 20 meq PO BID 08/19/24 08/19/24 History tablet,extended release (K-Tab) sildenafil (pulm.hypertension) 20 40 mg PO TID 08/19/24 08/19/24 History mg tablet Allergies Allergy/AdvReac Type Severity Reaction Status Date / Time crab Allergy Intermediate Hives Verified 08/18/24 02:16 tiotropium (From Spiriva Allergy Mild Dizziness Verified 08/18/24 02:16 with HandiHaler) Vital Signs Vital Signs - 24 hr 08/18/24 14:46 08/18/24 15:01 08/18/24 15:01 Temperature 98.5 F Pulse Rate 91 84 80 Respiratory Rate 23 H 16 22 H Blood Pressure 116/97 H 91/65 L 91/65 L Pulse Oximetry 95 95 Oxygen Delivery Oxygen Flow Rate 08/18/24 15:16 08/18/24 15:31 08/18/24 15:46 Temperature Pulse Rate 83 82 80 Respiratory Rate 18 17 18 Blood Pressure 80/55 L 103/63 123/74 Pulse Oximetry Oxygen Delivery Oxygen Flow Rate 08/18/24 16:01 08/18/24 16:16 08/18/24 16:31 Temperature Pulse Rate 83 75 75 Respiratory Rate 22 H 21 H 22 H Blood Pressure 107/81 110/62 111/59 L Pulse Oximetry Oxygen Delivery Oxygen Flow Rate 08/18/24 16:40 08/18/24 16:46 08/18/24 17:01 Temperature Pulse Rate 76 78 79 Respiratory Rate 19 22 H 22 H Blood Pressure 111/59 L 115/70 99/59 L Pulse Oximetry 96 96 96 Oxygen Delivery Oxygen Flow Rate 08/18/24 17:16 08/18/24 17:31 08/18/24 17:46 Temperature Pulse Rate 77 79 70 Respiratory Rate 20 19 20 Blood Pressure 109/64 113/61 111/68 Pulse Oximetry 95 96 94 Oxygen Delivery Oxygen Flow Rate 08/18/24 18:01 08/18/24 18:16 08/18/24 18:31 Temperature Pulse Rate 78 79 77 Respiratory Rate 16 18 18 Blood Pressure 107/61 112/61 114/63 Pulse Oximetry 96 Oxygen Delivery Oxygen Flow Rate 08/18/24 18:46 08/18/24 19:11 08/18/24 19:31 Temperature Pulse Rate 84 77 78 Respiratory Rate 20 22 H 20 Blood Pressure 104/63 134/61 111/69 Pulse Oximetry 91 93 Oxygen Delivery Oxygen Flow Rate 08/18/24 19:46 08/18/24 20:01 08/18/24 20:16 Temperature Pulse Rate 85 77 72 Respiratory Rate 22 H 24 H 18 Blood Pressure 112/69 118/63 105/64 Pulse Oximetry Oxygen Delivery Oxygen Flow Rate 08/18/24 20:31 08/18/24 20:46 08/18/24 21:01 Temperature Pulse Rate 71 67 73 Respiratory Rate 16 17 18 Blood Pressure 107/69 111/69 108/67 Pulse Oximetry Oxygen Delivery Oxygen Flow Rate 08/18/24 21:16 08/18/24 22:16 08/18/24 22:18 Temperature Pulse Rate 80 73 Respiratory Rate 20 19 Blood Pressure 117/69 110/71 Pulse Oximetry 96 98 Oxygen Delivery Nasal Cannula Oxygen Flow Rate 6 08/18/24 22:18 08/18/24 22:31 08/18/24 22:46 Temperature Pulse Rate 67 64 66 Respiratory Rate 17 14 16 Blood Pressure 110/71 86/57 L 107/68 Pulse Oximetry 97 99 98 Oxygen Delivery Oxygen Flow Rate 08/18/24 23:01 08/18/24 23:16 08/18/24 23:31 Temperature Pulse Rate 67 85 68 Respiratory Rate 14 28 H 15 Blood Pressure 92/59 L 81/53 L 94/57 L Pulse Oximetry 100 100 100 Oxygen Delivery Oxygen Flow Rate 08/18/24 23:46 08/19/24 00:01 08/19/24 00:31 Temperature Pulse Rate 68 77 78 Respiratory Rate 17 21 H 18 Blood Pressure 108/62 119/74 113/70 Pulse Oximetry 100 97 97 Oxygen Delivery Oxygen Flow Rate 08/19/24 00:46 08/19/24 01:01 08/19/24 01:16 Temperature Pulse Rate 72 72 74 Respiratory Rate 15 15 17 Blood Pressure 107/61 101/60 101/56 L Pulse Oximetry Oxygen Delivery Oxygen Flow Rate 08/19/24 02:16 08/19/24 02:31 08/19/24 02:46 Temperature Pulse Rate 79 73 71 Respiratory Rate 17 17 14 Blood Pressure 96/55 L 104/68 106/59 L Pulse Oximetry 76 L 97 Oxygen Delivery Oxygen Flow Rate 08/19/24 03:46 08/19/24 04:01 08/19/24 04:57 Temperature Pulse Rate 80 67 75 Respiratory Rate 21 H 14 18 Blood Pressure 133/65 114/64 Pulse Oximetry 94 97 97 Oxygen Delivery Oxygen Flow Rate 08/19/24 05:18 08/19/24 05:31 08/19/24 05:46 Temperature Pulse Rate 77 86 76 Respiratory Rate 18 23 H 15 Blood Pressure 125/67 112/67 Pulse Oximetry 95 94 96 Oxygen Delivery Oxygen Flow Rate 08/19/24 06:01 08/19/24 06:16 08/19/24 06:32 Temperature Pulse Rate 76 68 81 Respiratory Rate 20 16 21 H Blood Pressure 122/74 115/63 155/53 H Pulse Oximetry 95 94 94 Oxygen Delivery Oxygen Flow Rate 08/19/24 06:46 08/19/24 07:01 08/19/24 07:16 Temperature Pulse Rate 79 77 84 Respiratory Rate 17 19 17 Blood Pressure 121/64 138/74 132/76 Pulse Oximetry 93 Oxygen Delivery Oxygen Flow Rate 08/19/24 07:31 08/19/24 07:46 08/19/24 12:00 Temperature 98.4 F Pulse Rate 80 83 79 Respiratory Rate 21 H 20 Blood Pressure 142/76 H 143/75 H Pulse Oximetry 97 97 Oxygen Delivery Oxygen Flow Rate 08/19/24 12:01 Temperature Pulse Rate Respiratory Rate Blood Pressure Pulse Oximetry 97 Oxygen Delivery Nasal Cannula Oxygen Flow Rate 6 Exam Const: General: comfortable HENMT: Face/Nose/Sinus: Normal nares present Eyes: General: appearance normal, both eyes and all related structures Neck: Neck: supple Resp: Auscultation: clear to auscultation bilaterally Cardio: Rate: regular rate Rhythm: regular rhythm GI: Inspection: non-distended GI Palp: Yes Soft to palpation and No Tenderness to palpation present (GI) Skin: Other: pallor Neuro: Speech: normal speech Extrem: General: normal to inspection Psych: Mental Status: mental status grossly normal Results Labs 08/19/24 14:01 08/19/24 14:01 Labs: Short CBC 08/18/24 08/19/24 08/19/24 Range/Units 20:37 06:02 08:05 WBC (4.5-10.0) K/mm3 Hgb 7.9 L 7.8 L 7.8 L (14.0-18.0) g/dL Hct 26.1 L 26.9 L 26.4 L (42.0-52.0) % Plt Count (150-375) k/mm3 08/19/24 Range/Units 14:01 WBC 13.3 H (4.5-10.0) K/mm3 Hgb 7.7 L (14.0-18.0) g/dL Hct 26.2 L (42.0-52.0) % Plt Count 123 L D (150-375) k/mm3 BMP 08/19/24 14:01 Sodium 137 Potassium 3.4 Chloride 111 H Carbon Dioxide 21 L BUN 41 H D Creatinine 0.94 Glucose 93 Calcium 7.8 L
--- NOTE | 2024-08-19 15:51 | PM.IMPN ---
Progress Note: A&P Assessment and Plan (1) Hemorrhagic shock: Code(s): R57.8 - Other shock Status: Acute (2) Acute blood loss anemia: Code(s): D62 - Acute posthemorrhagic anemia Status: Acute (3) Acute upper gastrointestinal bleeding: Code(s): K92.2 - Gastrointestinal hemorrhage, unspecified Status: Acute (4) Leukocytosis: Qualifiers: Leukocytosis type: leukemoid reaction Qualified Code(s): D72.823 - Leukemoid reaction Code(s): D72.829 - Elevated white blood cell count, unspecified Status: Acute (5) Chronic respiratory failure with hypoxia, on home oxygen therapy: Code(s): J96.11 - Chronic respiratory failure with hypoxia; Z99.81 - Dependence on supplemental oxygen Status: Chronic (6) Combined systolic and diastolic cardiac dysfunction: Code(s): I51.89 - Other ill-defined heart diseases Status: Acute (7) Right ventricular systolic dysfunction: Code(s): I51.89 - Other ill-defined heart diseases Status: Acute (8) Protein-calorie malnutrition, moderate: Code(s): E44.0 - Moderate protein-calorie malnutrition Status: Acute Plan Patient has hemorrhagic shock due to upper GI bleed. Gastroenterology has been consulted. Patient received IV push Protonix 40 mg x 1 in the ER. Will given additional 40 mg IV and then initiate Protonix drip. At the time documentation CT of the abdomen and pelvis with contrast is still pending. Patient's blood pressures after 1 L of fluid and 1.5 units of blood has improved to 97/58. Patient has not had any further evidence of bleeding. Heart rate remains stable. Patient does have marked leukocytosis suspected to be due luekamoid reaction. However on my review CT and may be some evidence of infection at the right lung base versus chronic changes are atelectasis. Awaiting official radiologic interpretation determine whether to add antibiotic coverage. If evidence of varices will add octreotide drip. If evidence of large vessel bleed/active extravasation the patient would benefit from transfer to tertiary care instead of admissions at this facility. Given the patient's multiple comorbidities and low blood pressures if the patient does remain at the facility he would be better served by close monitoring in the ICU if he is able to stay at this facility. ICU admission would require acceptance by manager payroll. Patient does have marked elevation in BUN which could be due to GI bleed but also has acute kidney injury. This could be due to hypovolemia/hypotension or possible some component of urinary outlet obstruction. The patient's bladder appears quite large on imaging. Will have nursing staff check postvoid residual. Patient has combined systolic and diastolic heart failure as well as reduced right-sided cardiac output with severe pulmonary hypertension. Will need to monitor fluid status closely given these multiple factors. Currently patient is stable on his home O2. Patient does have significant protein calorie malnutrition with low serum albumin. He may benefit from albumin supplementation if hypotension persists. Would benefit from dietary supplements. patient with anemia and concern for upper GI bleed, resulting in hypotension, causing him to have hemorrhagic shock patient was given fluids, 1 unit of PRBC started on Protonix IV drip, which did help improve patient BP, plan was to transfer the patient to a tertiary care but no bed was available, today patient clinically improving, his BP has improved his Hgb has stabilized, and patient is seen by GI and plan to have EGD tomorrow, will continue to monitor and plan. Subjective Date/time seen: 08/19/24 15:51 Interval history: Black stools, belly pain Narrative: Pleasant 79-year-old male with a past medical history right-sided heart failure, combined systolic diastolic heart failure, chronic hypoxic respiratory failure on 6 L nasal cannula, severe pulmonary hypertension, obstructive sleep apnea, coronary artery disease status post three-vessel CABG, essential hypertension and iron deficiency anemia with multiple recent iron infusions who presented to the ER via EMS after passing a melenic stool. The patient reported that he has been having 2 of generalized abdominal pain and started having some dry heaves at home. He denied actually having any emesis but on arrival to the ER the patient had evidence of bright red blood in his oral mucosa and at the time my evaluation he had residual dried blood blow his nose. He denied any chest pain or any increased shortness of breath from baseline but he is on chronic home O2 of 4-5 L nasal cannula. He had been having some upper back pain for the last couple of weeks. He denies any recent NSAID use. He had been receiving iron infusions at [place] earlier this month. Patient's was noted to be hypotensive on arrival to the ER with systolic blood pressures ranging between the mid 60s in mid 80s. He received 1 L fluid bolus and 2 units of packed red blood cells. Patient's abdomen was noted to be distended but nontender to palpation. After 1 L of fluid and the initial 1 unit of blood patient still remained hypotensive. Patient reports feeling severely chilled but is afebrile. He reports that he always feels cold. He is not on any anticoagulants beyond the 81 mg aspirin for anti-platelet effect. He reports that he feels like he is going to have incontinence of both bowel and bladder with any palpation of his abdomen. He denies any recent dysuria. His bladder was noted to be distended on my review of the CT. Radiologic interpretation of CT is pending. I do not appreciate any free air. patient with anemia and concern for upper GI bleed, resulting in hypotension, causing him to have hemorrhagic shock patient was given fluids, 1 unit of PRBC started on Protonix IV drip, which did help improve patient BP, plan was to transfer the patient to a tertiary care but no bed was available, today patient clinically improving, his BP has improved his Hgb has stabilized, and patient is seen by GI and plan to have EGD tomorrow, will continue to monitor and plan. Review of Systems Review of Systems: 12 systems were reviewed with pertinent positives and negatives per HPI. Except as documented in the HPI, all other systems were reviewed and are negative. Exam Narrative: Patient is comfortable, NAD HEENT: eyes are clear and none icteric LUNGS:CTA HEART: RR S1S2 ABD: BS+, Soft and nontender Lower extremities: no edema SKIN: nonjaundiced Neuro: grossly intact. Objective Data Vital Signs Vital Signs: Vital Signs - 24 hr 08/18/24 16:01 08/18/24 16:16 08/18/24 16:31 Temperature Pulse Rate 83 75 75 Respiratory Rate 22 H 21 H 22 H Blood Pressure 107/81 110/62 111/59 L Pulse Oximetry Oxygen Delivery Oxygen Flow Rate 08/18/24 16:40 08/18/24 16:46 08/18/24 17:01 Temperature Pulse Rate 76 78 79 Respiratory Rate 19 22 H 22 H Blood Pressure 111/59 L 115/70 99/59 L Pulse Oximetry 96 96 96 Oxygen Delivery Oxygen Flow Rate 08/18/24 17:16 08/18/24 17:31 08/18/24 17:46 Temperature Pulse Rate 77 79 70 Respiratory Rate 20 19 20 Blood Pressure 109/64 113/61 111/68 Pulse Oximetry 95 96 94 Oxygen Delivery Oxygen Flow Rate 08/18/24 18:01 08/18/24 18:16 08/18/24 18:31 Temperature Pulse Rate 78 79 77 Respiratory Rate 16 18 18 Blood Pressure 107/61 112/61 114/63 Pulse Oximetry 96 Oxygen Delivery Oxygen Flow Rate 08/18/24 18:46 08/18/24 19:11 08/18/24 19:31 Temperature Pulse Rate 84 77 78 Respiratory Rate 20 22 H 20 Blood Pressure 104/63 134/61 111/69 Pulse Oximetry 91 93 Oxygen Delivery Oxygen Flow Rate 08/18/24 19:46 08/18/24 20:01 08/18/24 20:16 Temperature Pulse Rate 85 77 72 Respiratory Rate 22 H 24 H 18 Blood Pressure 112/69 118/63 105/64 Pulse Oximetry Oxygen Delivery Oxygen Flow Rate 08/18/24 20:31 08/18/24 20:46 08/18/24 21:01 Temperature Pulse Rate 71 67 73 Respiratory Rate 16 17 18 Blood Pressure 107/69 111/69 108/67 Pulse Oximetry Oxygen Delivery Oxygen Flow Rate 08/18/24 21:16 08/18/24 22:16 08/18/24 22:18 Temperature Pulse Rate 80 73 Respiratory Rate 20 19 Blood Pressure 117/69 110/71 Pulse Oximetry 96 98 Oxygen Delivery Nasal Cannula Oxygen Flow Rate 6 08/18/24 22:18 08/18/24 22:31 08/18/24 22:46 Temperature Pulse Rate 67 64 66 Respiratory Rate 17 14 16 Blood Pressure 110/71 86/57 L 107/68 Pulse Oximetry 97 99 98 Oxygen Delivery Oxygen Flow Rate 08/18/24 23:01 08/18/24 23:16 08/18/24 23:31 Temperature Pulse Rate 67 85 68 Respiratory Rate 14 28 H 15 Blood Pressure 92/59 L 81/53 L 94/57 L Pulse Oximetry 100 100 100 Oxygen Delivery Oxygen Flow Rate 08/18/24 23:46 08/19/24 00:01 08/19/24 00:31 Temperature Pulse Rate 68 77 78 Respiratory Rate 17 21 H 18 Blood Pressure 108/62 119/74 113/70 Pulse Oximetry 100 97 97 Oxygen Delivery Oxygen Flow Rate 08/19/24 00:46 08/19/24 01:01 08/19/24 01:16 Temperature Pulse Rate 72 72 74 Respiratory Rate 15 15 17 Blood Pressure 107/61 101/60 101/56 L Pulse Oximetry Oxygen Delivery Oxygen Flow Rate 08/19/24 02:16 08/19/24 02:31 08/19/24 02:46 Temperature Pulse Rate 79 73 71 Respiratory Rate 17 17 14 Blood Pressure 96/55 L 104/68 106/59 L Pulse Oximetry 76 L 97 Oxygen Delivery Oxygen Flow Rate 08/19/24 03:46 08/19/24 04:01 08/19/24 04:57 Temperature Pulse Rate 80 67 75 Respiratory Rate 21 H 14 18 Blood Pressure 133/65 114/64 Pulse Oximetry 94 97 97 Oxygen Delivery Oxygen Flow Rate 08/19/24 05:18 08/19/24 05:31 08/19/24 05:46 Temperature Pulse Rate 77 86 76 Respiratory Rate 18 23 H 15 Blood Pressure 125/67 112/67 Pulse Oximetry 95 94 96 Oxygen Delivery Oxygen Flow Rate 08/19/24 06:01 08/19/24 06:16 08/19/24 06:32 Temperature Pulse Rate 76 68 81 Respiratory Rate 20 16 21 H Blood Pressure 122/74 115/63 155/53 H Pulse Oximetry 95 94 94 Oxygen Delivery Oxygen Flow Rate 08/19/24 06:46 08/19/24 07:01 08/19/24 07:16 Temperature Pulse Rate 79 77 84 Respiratory Rate 17 19 17 Blood Pressure 121/64 138/74 132/76 Pulse Oximetry 93 Oxygen Delivery Oxygen Flow Rate 08/19/24 07:31 08/19/24 07:46 08/19/24 12:00 Temperature 36.9 C Pulse Rate 80 83 79 Respiratory Rate 21 H 20 Blood Pressure 142/76 H 143/75 H Pulse Oximetry 97 97 Oxygen Delivery Oxygen Flow Rate 08/19/24 12:01 08/19/24 14:00 Temperature 36.2 C L Pulse Rate 84 Respiratory Rate 20 Blood Pressure 115/68 Pulse Oximetry 97 98 Oxygen Delivery Nasal Cannula Oxygen Flow Rate 6 Intake/Output Intake/Output: Intake & Output 08/16/24 08/17/24 08/18/24 08/19/24 23:59 23:59 23:59 23:59 Intake Total 2450 1597 Output Total 235 650 Balance 1760 947 Meds/Results Medications: Active Medications Generic Name Dose Route Start Last Admin Trade Name Freq PRN Reason Stop Dose Admin Hydrocodone Bitart/Acetaminophen 1 tab 08/19/24 11:11 Hydrocodone/Acetaminophen (*Crx) 10-325 Mg Tablet PO BID PRN pain Albuterol 1 puff 08/19/24 11:11 Albuterol Sulfate (*Sp) Aerosol 1 Puff INHALATION QID PRN shortness of breath or wheezing Albuterol/Ipratropium 3 ml 08/19/24 11:11 Ipratropium 0.5 Mg/Albuterol Sulfate 2.5 Mg Ampul.Neb 3 Ml INHALATION QID PRN shortness of breath Atorvastatin Calcium 80 mg 08/20/24 09:00 Atorvastatin 40 Mg Tablet PO DAILY [facility] Citalopram Hydrobromide 40 mg 08/20/24 09:00 Citalopram Hydrobromide 20 Mg Tablet PO DAILY [facility] Ferrous Sulfate 142 mg 08/19/24 17:00 Ferrous Sulfate Dried 142 Mg Tabcr PO BID [facility] Fluticasone/Umeclidinium/Vilanterol 1 puff 08/20/24 08:00 Fluticasone/Umeclidin/Vilanter 100-62.5-25 Mcg Ellipta INHALATION DAILYRT [facility] Furosemide 40 mg 08/20/24 09:00 Furosemide 40 Mg Tablet PO DAILY [facility] Losartan Potassium 25 mg 08/20/24 09:00 Losartan Potassium 25 Mg Tablet PO DAILY [facility] Methocarbamol 750 mg 08/19/24 11:11 Methocarbamol 750 Mg Tablet PO TID PRN muscle spasm Metoprolol Succinate 25 mg 08/20/24 09:00 Metoprolol Succinate Ext Rel 25 Mg Tabcr PO DAILY [facility] Mirtazapine 15 mg 08/19/24 21:00 Mirtazapine 15 Mg Tablet BY MOUTH [facility] Miscellaneous Information 1 each 08/19/24 00:01 Opsumit Nonformulary. Can Patient Use Form Home Or Hold Till Discharge? XX 09/18/24 00:00 CLARIFY [facility] Non-Formulary Medication 10 mg 08/20/24 09:00 Macitentan [Opsumit] PO 09/19/24 08:59 DAILY [facility] Pantoprazole Sodium 40 mg 08/19/24 21:00 Pantoprazole Sodium Iv 40 Mg Vial IV PUSH Q12HR [facility] Prednisone 20 mg 08/19/24 11:15 08/19/24 12:52 Prednisone 20 Mg Tablet BY MOUTH 20 mg DAILY [facility] Administration Sildenafil Citrate 40 mg 08/19/24 13:00 08/19/24 12:52 Sildenafil Citrate 20 Mg Tablet PO 40 mg TID [facility] Administration Spironolactone 25 mg 08/20/24 09:00 Spironolactone 25 Mg Tablet PO DAILY [facility] Radiology Results: ITS Impressions Abdomen/Pelvis CT 08/18/24 07:00 IMPRESSION: 1. Fluid throughout much of the colon consistent nonspecific diarrhea which could be due to gastroenteritis or reported gastrointestinal bleed. There are 5 small foci of high attenuation within the ascending colon which are similar in density to the contrast in the colon which could represent foci of active extravasation although the multiplicity and dependent distribution would favor high attenuation material within the fecal stream. 2. Mild diffuse gallbladder wall thickening with mild stranding near the fundus but without dilation to more specifically suggest acute cholecystitis. This could be due to decompressed state or potentially chronic cholecystitis. Correlate clinically for Arora sign and if indicated could consider further evaluation with either right upper quadrant ultrasound or HIDA scan. 3. 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 4. Extensive atherosclerotic disease with multifocal severe stenosis along the left external, superficial femoral and deep femoral arteries and at the right deep femoral artery with moderate stenosis at the right superficial femoral artery. 5. Numerous compression and burst fractures from T9 through L5 sparing L2 and several which appear relatively recent and new since 05/29/2024. Chest X-Ray 08/18/24 07:18 IMPRESSION: 1. Emphysema with stable appearance of atelectasis/scarring at the bilateral lower lung zones. Labs Labs: Laboratory Results - last 24 hr 08/18/24 08/19/24 08/19/24 20:37 06:02 08:05 WBC RBC Hgb 7.9 L 7.8 L 7.8 L Hct 26.1 L 26.9 L 26.4 L MCV MCH MCHC RDW Plt Count MPV Sodium Potassium Chloride Carbon Dioxide Anion Gap BUN Creatinine Estim Creat Clear Calc Estimated GFR Glucose Calcium 08/19/24 14:01 WBC 13.3 H RBC 3.01 L Hgb 7.7 L Hct 26.2 L MCV 87.0 MCH 25.6 L MCHC 29.4 L RDW 23.2 H Plt Count 123 L D MPV 9.4 Sodium 137 Potassium 3.4 Chloride 111 H Carbon Dioxide 21 L Anion Gap 5 BUN 41 H D Creatinine 0.94 Estim Creat Clear Calc 54 Estimated GFR > 60 Glucose 93 Calcium 7.8 L Quality VTE Prophylaxis VTE prophylaxis: mechanical ordered (SCDs)
[2024-08-19] MEDS: FERROUS SULFATE DRIED 142 MG TABCR PO (17:07)
[2024-08-19] MEDS: HYDROcodone/acetaminophen (*CRX) 10-325 MG TABLET 1 TAB PO (20:35)
[2024-08-19] MEDS: methocarbamoL 750 MG TABLET PO (20:35)
[2024-08-19] MEDS: MIRTAZAPINE 15 MG TABLET BY MOUTH (20:35)
[2024-08-19] MEDS: PANTOPRAZOLE SODIUM IV 40 MG VIAL IV PUSH (20:35)
[2024-08-20] VITALS (24 sets, daily range): BP systolic 83–125; BP diastolic 38–79; PULSE 64–105; RESP 14–32; TEMP 36.2–36.9; O2SAT 90–100; BMI 19.7
[2024-08-20] MEDS: FLUTICASONE/UMECLIDIN/VILANTER 100-62.5-25 MCG ELLIPTA 1 PUFF INHALATION (08:41)
[2024-08-20] MEDS: METOPROLOL SUCCINATE EXT REL 25 MG TABCR PO (08:52)
[2024-08-20] MEDS: ONDANSETRON INJ 4 MG/2 ML VIAL IV PUSH (08:52)
[2024-08-20] MEDS: PANTOPRAZOLE SODIUM IV 40 MG VIAL IV PUSH ×2 (09:25→21:14)
[2024-08-20 09:33] LABS: Hematocrit 21.7 % (42.0-52.0); Mean Corpuscular HGB Conc 27.6 g/dl (32-36); Mean Corpuscular Hemoglobin 25.5 pg (26-34); Mean Corpuscular Volume 92.3 fl (80-100); Mean Platelet Volume 10.5 fl (7.4-10.4); Platelet Count Result 238 k/mm3 (150-375); Red Blood Count 2.35 M/mm3 (4.6-6.20); Red Cell Distribution Width 24.1 % (11.5-14.5); White Blood Count 27.9 K/mm3 (4.5-10.0)
[2024-08-20 09:43] LABS: Anion Gap 8 mmol/L (4-12); Blood Urea Nitrogen 35 mg/dL (9-20); Calcium 7.5 mg/dL (8.4-10.2); Carbon Dioxide 17 mmol/L (22-30); Chloride 112 mmol/L (98-107); Estimated CRCL calculation 54 ml/min; Estimated Glomerular Filt Rate > 60; Glucose 175 mg/dL (65-110); Magnesium 1.9 mg/dL (1.6-2.3); Potassium 4.2 mmol/L (3.4-5.0); Sodium 137 mmol/L (137-145)
[2024-08-20] MEDS: SODIUM CHLORIDE 0.9% IV 250 ML 30 ML IV CONT (10:36)
--- NOTE | 2024-08-20 14:41 | WPDANESEPPF ---
Anes - Initial Pre Proc Eval Procedure: Operation Date: 08/20/24 15:00 Proposed Procedures p Esophagogastroduodenoscopy - Jem Guerra MD Date/Time: 08/20/24 14:41 Surgeon: Pelon Moura MD Pre Op Diagnosis: GIB Patient Data Age: 79 Gender: M Height: 1.83 m Weight: 66 kg Last Vital Signs Temp 36.4 C 08/20/24 14:14 Pulse 72 08/20/24 14:14 Resp 18 08/20/24 14:14 BP 97/78 L 08/20/24 14:14 Pulse Ox 96 08/20/24 14:14 O2 Del Method Nasal Cannula 08/20/24 09:20 O2 Flow Rate 6 08/20/24 09:20 FiO2 44 08/20/24 08:41 Allergies Allergy/AdvReac Type Severity Reaction Status Date / Time crab Allergy Intermediate Hives Verified 08/20/24 14:37 tiotropium (From Spiriva Allergy Mild Dizziness Verified 08/20/24 14:37 with HandiHaler) Home Medications ?Medication ?Instructions ?Recorded ?Confirmed ?Type aspirin 81 mg chewable tablet 81 mg PO DAILY 04/22/20 08/19/24 History lisinopril 20 mg tablet 10 mg PO DAILY 06/28/22 08/19/24 History nebulizers #1 ea 07/08/22 08/19/24 Rx ipratropium 0.5 mg-albuterol 3 mg 3 ml inhalation QID PRN shortness 07/13/22 08/19/24 Rx (2.5 mg base)/3 mL nebulization of breath #180 mL soln macitentan 10 mg tablet (Opsumit) 10 mg PO DAILY 01/14/23 08/19/24 History albuterol sulfate 90 mcg/actuation 1 inh inhalation QID PRN shortness 05/30/23 08/19/24 Rx aerosol inhaler of breath or wheezing #8.5 grams furosemide 40 mg tablet 40 mg PO DAILY #90 tabs 12/19/23 08/19/24 Rx Breztri Aerosphere 160 2 inh inhalation BID #10.7 grams 03/26/24 08/19/24 Rx mcg-9mcg-4.8mcg/actuation HFA aerosol inhaler (ovpwzinocj-vwrirqxd-kelqhflmvc) citalopram 20 mg tablet 40 mg (2 x 20 mg) PO DAILY #180 03/26/24 08/19/24 Rx tabs azithromycin 500 mg tablet 500 mg PO .three times per week 90 04/23/24 08/19/24 Rx days #36 tabs methocarbamol 750 mg tablet 750 mg PO TID PRN muscle spasm #30 05/25/24 08/19/24 Rx tabs prednisone 20 mg tablet See Rx Instructions .Route 07/05/24 08/19/24 Rx .COMPLEX #30 tabs spironolactone 25 mg tablet 25 mg PO DAILY #90 tabs 07/05/24 08/19/24 Rx atorvastatin 80 mg tablet 80 mg PO DAILY #90 tabs 08/06/24 08/19/24 Rx mirtazapine 15 mg tablet See Rx Instructions .Route 08/06/24 08/19/24 Rx .COMPLEX #90 tabs ferrous sulfate 137 mg (45 mg 137 mg PO BID 08/19/24 08/19/24 History iron) tablet,extended release (Slow Fe) hydrocodone 10 mg-acetaminophen 1 tablet PO BID PRN pain 08/19/24 08/19/24 History 325 mg tablet losartan 25 mg tablet 25 mg PO DAILY 08/19/24 08/19/24 History metoprolol succinate 25 mg 25 mg PO DAILY 08/19/24 08/19/24 History tablet,extended release 24 hr potassium chloride 20 mEq 20 meq PO BID 08/19/24 08/19/24 History tablet,extended release (K-Tab) sildenafil (pulm.hypertension) 20 40 mg PO TID 08/19/24 08/19/24 History mg tablet Laboratory Tests 08/18/24 08/20/24 02:26 09:28 WBC 27.9 H K/mm3 (4.5-10.0) RBC 2.35 L M/mm3 (4.6-6.20) Hgb 6.0 L* g/dL (14.0-18.0) Hct 21.7 L % (42.0-52.0) MCV 92.3 D fl (80-100) MCH 25.5 L pg (26-34) MCHC 27.6 L g/dl (32-36) RDW 24.1 H % (11.5-14.5) Plt Count 238 D k/mm3 (150-375) MPV 10.5 H fl (7.4-10.4) Sodium 137 mmol/L (137-145) Potassium 4.2 mmol/L (3.4-5.0) Chloride 112 H mmol/L (98-107) Carbon Dioxide 17 L mmol/L (22-30) Anion Gap 8 mmol/L (4-12) BUN 35 H mg/dL (9-20) Creatinine 0.95 mg/dL (0.7-1.3) Estim Creat Clear Calc 54 ml/min Estimated GFR > 60 (59 - ) Glucose 175 H mg/dL (65-110) Calcium 7.5 L mg/dL (8.4-10.2) Magnesium 1.9 mg/dL (1.6-2.3) Blood Type O Positive Antibody Screen Negative Crossmatch See Detail Patient hx anesthesia problems: none Family hx anesthesia problems: none Results Review: All pre-operative results and documents have been reviewed as part of the pre-operative evaluation. [facility] Past Medical History Medical History Acute on chronic anemia Hematemesis Central sleep apnea Lumbar stenosis with neurogenic claudication Lumbar radiculopathy Neuropathy Chronic respiratory failure with hypoxia, on home oxygen therapy Combined systolic and diastolic cardiac dysfunction Severe pulmonary hypertension Right ventricular systolic dysfunction Obstructive sleep apnea Intolerant to CPAP. Benign essential hypertension Erectile dysfunction Hypogonadism Solitary pulmonary nodule Atherosclerosis of aorta Generalized anxiety disorder Raynaud's syndrome without gangrene Hypertension Hypothyroidism Hyperlipidemia Depression Emphysema lung Coronary artery disease Surgical History Surgical History History of three vessel coronary artery bypass History of cardiac cath Family History Family History Father Hypertension Alcoholism Social History Social History Social History: Surrogate medical decision maker: Constantine Ko JrAva, son. Code status: DNR/DNI Smoking packs per day: 1 Smoking cigarettes per day: 20.0 Years smoked: 40 Smoking pack-years: 40.00 Smoking status: Former smoker Tobacco type: cigarettes Smoking end date: 10/20/04 Alcohol intake: never Drinks per week: 1 Substance use: never Substance use type: does not use Do You Feel Safe in your Home?: Yes Lack of Transportation: No Lack of Food: Never True Current Housing: I Have Housing Concerned About Future Housing: No Difficulty Paying Gas/Electric Bills: No Difficulty Paying for Meds: No Currently Unemployed: No Education: Decline to Answer Difficulty w/ Childcare or Family Care: No Living arrangements: with family Additional living arrangements comments: Lives with spouse in [place]. Occupation/Education: retired Spiritual care concerns: No Anes - Eval Final PreProcedure Day of Procedure 08/20/24 14:41 Patient weight: thin Heart: regular rate and rhythm Lungs: clear to auscultation Airway: Mallampati scale class II Neurological: alert and oriented Last oral intake: >/= 8 hours ASA classification: IV Emergent: no Anesthetic plan: proceed Anesthesia type and monitoring: general GIVS and standard monitoring Results Review: All pre-operative results and documents have been reviewed as part of the pre-operative evaluation. Informed Consent: The patient's anesthetic plan and its attendant risks and benefits were discussed with the patient/family/POA. Questions were solicited and answers provided to the satisfaction of the patient/family/POA.
[2024-08-20] MEDS: LACTATED RINGERS 1,000 ML 150 ML IV CONT (14:44)
[2024-08-20] MEDS: EPINEPHrine INJ 1 MG/10 ML SYRINGE 0.3 MG XX (16:12)
[2024-08-20 17:08] LABS: HPYLORIRESULT Negative (Negative)
[2024-08-20 18:05] LABS: Hematocrit 25.3 % (42.0-52.0); Hemoglobin 7.6 g/dL (14.0-18.0); Mean Corpuscular Volume 93.4 fl (80-100); Mean Platelet Volume 10.5 fl (7.4-10.4); Platelet Count Result 182 k/mm3 (150-375); Red Blood Count 2.71 M/mm3 (4.6-6.20); Red Cell Distribution Width 23.4 % (11.5-14.5)
--- NOTE | 2024-08-20 18:27 | PM.IMPN ---
Progress Note: A&P Assessment and Plan (1) Hemorrhagic shock: Code(s): R57.8 - Other shock Status: Acute (2) Acute blood loss anemia: Code(s): D62 - Acute posthemorrhagic anemia Status: Acute (3) Acute upper gastrointestinal bleeding: Code(s): K92.2 - Gastrointestinal hemorrhage, unspecified Status: Acute (4) Leukocytosis: Qualifiers: Leukocytosis type: leukemoid reaction Qualified Code(s): D72.823 - Leukemoid reaction Code(s): D72.829 - Elevated white blood cell count, unspecified Status: Acute (5) Chronic respiratory failure with hypoxia, on home oxygen therapy: Code(s): J96.11 - Chronic respiratory failure with hypoxia; Z99.81 - Dependence on supplemental oxygen Status: Chronic (6) Combined systolic and diastolic cardiac dysfunction: Code(s): I51.89 - Other ill-defined heart diseases Status: Acute (7) Right ventricular systolic dysfunction: Code(s): I51.89 - Other ill-defined heart diseases Status: Acute (8) Protein-calorie malnutrition, moderate: Code(s): E44.0 - Moderate protein-calorie malnutrition Status: Acute Plan Patient has hemorrhagic shock due to upper GI bleed. Gastroenterology has been consulted. Patient received IV push Protonix 40 mg x 1 in the ER. Will given additional 40 mg IV and then initiate Protonix drip. At the time documentation CT of the abdomen and pelvis with contrast is still pending. Patient's blood pressures after 1 L of fluid and 1.5 units of blood has improved to 97/58. Patient has not had any further evidence of bleeding. Heart rate remains stable. Patient does have marked leukocytosis suspected to be due luekamoid reaction. However on my review CT and may be some evidence of infection at the right lung base versus chronic changes are atelectasis. Awaiting official radiologic interpretation determine whether to add antibiotic coverage. If evidence of varices will add octreotide drip. If evidence of large vessel bleed/active extravasation the patient would benefit from transfer to tertiary care instead of admissions at this facility. Given the patient's multiple comorbidities and low blood pressures if the patient does remain at the facility he would be better served by close monitoring in the ICU if he is able to stay at this facility. ICU admission would require acceptance by first officer and flight instructor. Patient does have marked elevation in BUN which could be due to GI bleed but also has acute kidney injury. This could be due to hypovolemia/hypotension or possible some component of urinary outlet obstruction. The patient's bladder appears quite large on imaging. Will have nursing staff check postvoid residual. Patient has combined systolic and diastolic heart failure as well as reduced right-sided cardiac output with severe pulmonary hypertension. Will need to monitor fluid status closely given these multiple factors. Currently patient is stable on his home O2. Patient does have significant protein calorie malnutrition with low serum albumin. He may benefit from albumin supplementation if hypotension persists. Would benefit from dietary supplements. patient with anemia and concern for upper GI bleed, resulting in hypotension, causing him to have hemorrhagic shock patient was given fluids, 1 unit of PRBC started on Protonix IV drip, which did help improve patient BP, plan was to transfer the patient to a tertiary care but no bed was available, today patient clinically improving, his BP has improved his Hgb has stabilized, and patient was seen by GI and had EGD which showed ulcer which was cauterized, patient did have shortness of breath after the procedure and repeat hgb is stable. will continue to monitor. Subjective Date/time seen: 08/20/24 18:27 Interval history: Black stools, belly pain Narrative: Pleasant 79-year-old male with a past medical history right-sided heart failure, combined systolic diastolic heart failure, chronic hypoxic respiratory failure on 6 L nasal cannula, severe pulmonary hypertension, obstructive sleep apnea, coronary artery disease status post three-vessel CABG, essential hypertension and iron deficiency anemia with multiple recent iron infusions who presented to the ER via EMS after passing a melenic stool. The patient reported that he has been having 2 of generalized abdominal pain and started having some dry heaves at home. He denied actually having any emesis but on arrival to the ER the patient had evidence of bright red blood in his oral mucosa and at the time my evaluation he had residual dried blood blow his nose. He denied any chest pain or any increased shortness of breath from baseline but he is on chronic home O2 of 4-5 L nasal cannula. He had been having some upper back pain for the last couple of weeks. He denies any recent NSAID use. He had been receiving iron infusions at [place] earlier this month. Patient's was noted to be hypotensive on arrival to the ER with systolic blood pressures ranging between the mid 60s in mid 80s. He received 1 L fluid bolus and 2 units of packed red blood cells. Patient's abdomen was noted to be distended but nontender to palpation. After 1 L of fluid and the initial 1 unit of blood patient still remained hypotensive. Patient reports feeling severely chilled but is afebrile. He reports that he always feels cold. He is not on any anticoagulants beyond the 81 mg aspirin for anti-platelet effect. He reports that he feels like he is going to have incontinence of both bowel and bladder with any palpation of his abdomen. He denies any recent dysuria. His bladder was noted to be distended on my review of the CT. Radiologic interpretation of CT is pending. I do not appreciate any free air. patient with anemia and concern for upper GI bleed, resulting in hypotension, causing him to have hemorrhagic shock patient was given fluids, 1 unit of PRBC started on Protonix IV drip, which did help improve patient BP, plan was to transfer the patient to a tertiary care but no bed was available, today patient clinically improving, his BP has improved his Hgb has stabilized, and patient was seen by GI and had EGD which showed ulcer which was cauterized, patient did have shortness of breath after the procedure and repeat hgb is stable. will continue to monitor. Review of Systems Review of Systems: 12 systems were reviewed with pertinent positives and negatives per HPI. Except as documented in the HPI, all other systems were reviewed and are negative. Exam Narrative: Patient is comfortable, NAD HEENT: eyes are clear and none icteric LUNGS:CTA HEART: RR S1S2 ABD: BS+, Soft and nontender Lower extremities: no edema SKIN: nonjaundiced Neuro: grossly intact. Objective Data Vital Signs Vital Signs: Vital Signs - 24 hr 08/19/24 20:00 08/19/24 20:00 08/19/24 22:00 Temperature 37.0 C Pulse Rate 81 80 Respiratory Rate 18 Blood Pressure 101/53 L Pulse Oximetry 96 96 Oxygen Delivery Nasal Cannula Oxygen Flow Rate 6 Fraction of Inspired Oxygen 08/20/24 00:00 08/20/24 04:08/20/24 06:00 Temperature 36.9 C Pulse Rate 64 71 69 Respiratory Rate 18 Blood Pressure 101/50 L Pulse Oximetry 95 Oxygen Delivery Oxygen Flow Rate Fraction of Inspired Oxygen 08/20/24 08:00 08/20/24 08:41 08/20/24 08:41 Temperature Pulse Rate 105 H 77 Respiratory Rate 20 Blood Pressure Pulse Oximetry 95 Oxygen Delivery Nasal Cannula Oxygen Flow Rate 6 Fraction of Inspired Oxygen 44 08/20/24 08:52 08/20/24 09:20 08/20/24 10:48 Temperature 36.4 C Pulse Rate 104 H 80 Respiratory Rate 14 Blood Pressure 83/49 L Pulse Oximetry 96 96 Oxygen Delivery Nasal Cannula Oxygen Flow Rate 6 Fraction of Inspired Oxygen 08/20/24 11:05 08/20/24 12:00 08/20/24 12:05 Temperature 36.2 C L 36.2 C L Pulse Rate 80 87 88 Respiratory Rate 18 18 Blood Pressure 84/48 L 125/79 Pulse Oximetry 98 95 Oxygen Delivery Oxygen Flow Rate Fraction of Inspired Oxygen 08/20/24 13:05 08/20/24 14:05 08/20/24 14:13 Temperature 36.4 C 36.4 C 36.4 C Pulse Rate 94 72 70 Respiratory Rate 18 18 18 Blood Pressure 93/59 L 97/78 L 97/78 L Pulse Oximetry 96 95 96 Oxygen Delivery Oxygen Flow Rate Fraction of Inspired Oxygen 08/20/24 14:14 08/20/24 14:38 08/20/24 16:06 Temperature 36.4 C 36.7 C Pulse Rate 72 65 90 Respiratory Rate 18 20 32 H Blood Pressure 97/78 L 99/63 L 123/62 Pulse Oximetry 96 94 90 Oxygen Delivery Nasal Cannula Nasal Cannula Oxygen Flow Rate 6 6 Fraction of Inspired Oxygen 08/20/24 16:16 08/20/24 16:26 08/20/24 17:20 Temperature Pulse Rate 82 78 Respiratory Rate 25 H 28 H Blood Pressure 100/57 L 108/64 Pulse Oximetry 100 97 100 Oxygen Delivery Simple Face Mask Simple Face Mask High Flow Nasal Cannula Oxygen Flow Rate 10 6 10 Fraction of Inspired Oxygen Intake/Output Intake/Output: Intake & Output 08/17/24 08/18/24 08/19/24 08/20/24 23:59 23:59 23:59 23:59 Intake Total 2450 1837 400 Output Total 690 750 550 Balance 1760 1087 -150 Meds/Results Medications: Active Medications Generic Name Dose Route Start Last Admin Trade Name Freq PRN Reason Stop Dose Admin Hydrocodone Bitart/Acetaminophen 1 tab 08/19/24 20:00 08/19/24 20:35 Hydrocodone/Acetaminophen (*Crx) 10-325 Mg Tablet PO 1 tab Q8HR PRN Administration pain Albuterol 1 puff 08/19/24 11:11 Albuterol Sulfate (*Sp) Aerosol 1 Puff INHALATION QID PRN shortness of breath or wheezing Albuterol/Ipratropium 3 ml 08/19/24 11:11 Ipratropium 0.5 Mg/Albuterol Sulfate 2.5 Mg Ampul.Neb 3 Ml INHALATION QID PRN shortness of breath Atorvastatin Calcium 80 mg 08/20/24 09:00 08/20/24 08:13 Atorvastatin 40 Mg Tablet PO Not Given DAILY SALAZAR Citalopram Hydrobromide 40 mg 08/20/24 09:00 08/20/24 08:27 Citalopram Hydrobromide 20 Mg Tablet PO Not Given DAILY SALAZAR Ferrous Sulfate 142 mg 08/19/24 17:00 08/20/24 18:01 Ferrous Sulfate Dried 142 Mg Tabcr PO Not Given BID SALAZAR Fluticasone/Umeclidinium/Vilanterol 1 puff 08/20/24 08:00 08/20/24 08:41 Fluticasone/Umeclidin/Vilanter 100-62.5-25 Mcg Ellipta INHALATION 1 puff DAILYRT SALAZAR Administration Furosemide 40 mg 08/20/24 09:00 08/20/24 08:13 Furosemide 40 Mg Tablet PO Not Given DAILY SALAZAR Losartan Potassium 25 mg 08/20/24 09:00 08/20/24 08:12 Losartan Potassium 25 Mg Tablet PO Not Given DAILY SALAZAR Methocarbamol 750 mg 08/19/24 11:11 08/19/24 20:35 Methocarbamol 750 Mg Tablet PO 750 mg TID PRN Administration muscle spasm Metoprolol Succinate 25 mg 08/20/24 09:00 08/20/24 08:52 Metoprolol Succinate Ext Rel 25 Mg Tabcr PO 25 mg DAILY SALAZAR Administration Mirtazapine 15 mg 08/19/24 21:00 08/19/24 20:35 Mirtazapine 15 Mg Tablet BY MOUTH 15 mg HS SALAZAR Administration Ondansetron HCl 4 mg 08/20/24 08:16 08/20/24 08:52 Ondansetron Inj 4 Mg/2 Ml Vial IV PUSH 4 mg Q6H PRN Administration Nausea And Vomiting Pantoprazole Sodium 40 mg 08/19/24 21:00 08/20/24 09:25 Pantoprazole Sodium Iv 40 Mg Vial IV PUSH 40 mg Q12HR ASLAZAR Administration Prednisone 20 mg 08/19/24 11:15 08/20/24 08:12 Prednisone 20 Mg Tablet BY MOUTH Not Given DAILY SALAZAR Sildenafil Citrate 40 mg 08/19/24 13:00 08/20/24 18:01 Sildenafil Citrate 20 Mg Tablet PO Not Given TID SALAZAR Spironolactone 25 mg 08/20/24 09:00 08/20/24 08:13 Spironolactone 25 Mg Tablet PO Not Given DAILY [facility] Radiology Results: ITS Impressions Abdomen/Pelvis CT 08/18/24 07:00 IMPRESSION: 1. Fluid throughout much of the colon consistent nonspecific diarrhea which could be due to gastroenteritis or reported gastrointestinal bleed. There are 5 small foci of high attenuation within the ascending colon which are similar in density to the contrast in the colon which could represent foci of active extravasation although the multiplicity and dependent distribution would favor high attenuation material within the fecal stream. 2. Mild diffuse gallbladder wall thickening with mild stranding near the fundus but without dilation to more specifically suggest acute cholecystitis. This could be due to decompressed state or potentially chronic cholecystitis. Correlate clinically for Arora sign and if indicated could consider further evaluation with either right upper quadrant ultrasound or HIDA scan. 3. 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 4. Extensive atherosclerotic disease with multifocal severe stenosis along the left external, superficial femoral and deep femoral arteries and at the right deep femoral artery with moderate stenosis at the right superficial femoral artery. 5. Numerous compression and burst fractures from T9 through L5 sparing L2 and several which appear relatively recent and new since 05/29/2024. Chest X-Ray 08/18/24 07:18 IMPRESSION: 1. Emphysema with stable appearance of atelectasis/scarring at the bilateral lower lung zones. Labs Labs: Laboratory Results - last 24 hr 08/18/24 08/20/24 08/20/24 02:26 09:28 17:05 WBC 27.9 H RBC 2.35 L Hgb 6.0 L* Hct 21.7 L MCV 92.3 D MCH 25.5 L MCHC 27.6 L RDW 24.1 H Plt Count 238 D MPV 10.5 H Sodium 137 Potassium 4.2 Chloride 112 H Carbon Dioxide 17 L Anion Gap 8 BUN 35 H Creatinine 0.95 Estim Creat Clear Calc 54 Estimated GFR > 60 Glucose 175 H Calcium 7.5 L Magnesium 1.9 POC H. pylori Urease Negative Blood Type O Positive Antibody Screen Negative Crossmatch See Detail 08/20/24 17:53 WBC 26.0 H RBC 2.71 L Hgb 7.6 L Hct 25.3 L MCV 93.4 MCH 28.0 D MCHC 30.0 L RDW 23.4 H Plt Count 182 MPV 10.5 H Sodium Potassium Chloride Carbon Dioxide Anion Gap BUN Creatinine Estim Creat Clear Calc Estimated GFR Glucose Calcium Magnesium POC H. pylori Urease Blood Type Antibody Screen Crossmatch Quality VTE Prophylaxis VTE prophylaxis: mechanical ordered (SCDs)
[2024-08-20] MEDS: HYDROcodone/acetaminophen (*CRX) 10-325 MG TABLET 1 TAB PO (21:14)
[2024-08-20] MEDS: methocarbamoL 750 MG TABLET PO (21:14)
[2024-08-20] MEDS: MIRTAZAPINE 15 MG TABLET BY MOUTH (21:15)
[2024-08-21] VITALS (19 sets, daily range): BP systolic 90–117; BP diastolic 41–95; PULSE 67–92; RESP 16–20; TEMP 36.1–36.9; O2SAT 91–98
[2024-08-21 05:34] LABS: Mean Corpuscular Hemoglobin 27.6 pg (26-34); Mean Corpuscular Volume 92.1 fl (80-100); Mean Platelet Volume 10.1 fl (7.4-10.4); Platelet Count Result 132 k/mm3 (150-375); Red Blood Count 2.39 M/mm3 (4.6-6.20); Red Cell Distribution Width 23.6 % (11.5-14.5); White Blood Count 14.1 K/mm3 (4.5-10.0)
[2024-08-21 05:45] LABS: Alanine Aminotransferase 69 U/L (6-50); Albumin Level 2.1 g/dL (3.5-5.1); Alkaline Phosphatase 155 U/L (38-126); Anion Gap 5 mmol/L (4-12); Aspartate Amino Transferase 46 U/L (17-59); Blood Urea Nitrogen 51 mg/dL (9-20); Calcium 7.9 mg/dL (8.4-10.2); Carbon Dioxide 21 mmol/L (22-30); Chloride 110 mmol/L (98-107); Estimated CRCL calculation 53 ml/min; Estimated Glomerular Filt Rate > 60; Glucose 78 mg/dL (65-110); Potassium 3.9 mmol/L (3.4-5.0); Sodium 136 mmol/L (137-145)
[2024-08-21 05:49] LABS: Hemoglobin 6.6 g/dL (14.0-18.0)
[2024-08-21] MEDS: FLUTICASONE/UMECLIDIN/VILANTER 100-62.5-25 MCG ELLIPTA 1 PUFF INHALATION (08:17)
[2024-08-21] MEDS: CITALOPRAM HYDROBROMIDE 20 MG TABLET 40 MG PO (09:26)
[2024-08-21] MEDS: LOSARTAN POTASSIUM 25 MG TABLET PO (09:26)
[2024-08-21] MEDS: ATORVASTATIN 40 MG TABLET 80 MG PO (09:26)
[2024-08-21] MEDS: FUROSEMIDE 40 MG TABLET PO (09:26)
[2024-08-21] MEDS: SPIRONOLACTONE 25 MG TABLET PO (09:26)
[2024-08-21] MEDS: PANTOPRAZOLE SODIUM IV 40 MG VIAL IV PUSH ×2 (09:26→20:25)
[2024-08-21] MEDS: predniSONE 20 MG TABLET BY MOUTH (09:26)
[2024-08-21] MEDS: SILDENAFIL CITRATE 20 MG TABLET 40 MG PO ×3 (09:27→17:38)
[2024-08-21] MEDS: METOPROLOL SUCCINATE EXT REL 25 MG TABCR PO (09:27)
[2024-08-21] MEDS: FERROUS SULFATE DRIED 142 MG TABCR PO ×2 (09:27→17:38)
[2024-08-21] MEDS: TUBING, BLOOD PLUM PUMP TUBING 1 EACH XX (12:35)
[2024-08-21] MEDS: SODIUM CHLORIDE 0.9% IV 250 ML 30 ML IV CONT (12:35)
--- NOTE | 2024-08-21 13:36 | PC.NURSE ---
On 08/21/24, the student, Fernanda Santana, provided care and completed [facility] documentation on this patient. I have reviewed the student's documentation and agree with the findings.
[2024-08-21 14:03] LABS: Hematocrit 29.7 % (42.0-52.0); Hemoglobin 8.8 g/dL (14.0-18.0)
--- NOTE | 2024-08-21 14:22 | PM.IMPN ---
Progress Note: A&P Assessment and Plan (1) Hemorrhagic shock: Code(s): R57.8 - Other shock Status: Acute (2) Acute blood loss anemia: Code(s): D62 - Acute posthemorrhagic anemia Status: Acute (3) Acute upper gastrointestinal bleeding: Code(s): K92.2 - Gastrointestinal hemorrhage, unspecified Status: Acute (4) Leukocytosis: Qualifiers: Leukocytosis type: leukemoid reaction Qualified Code(s): D72.823 - Leukemoid reaction Code(s): D72.829 - Elevated white blood cell count, unspecified Status: Acute (5) Chronic respiratory failure with hypoxia, on home oxygen therapy: Code(s): J96.11 - Chronic respiratory failure with hypoxia; Z99.81 - Dependence on supplemental oxygen Status: Chronic (6) Combined systolic and diastolic cardiac dysfunction: Code(s): I51.89 - Other ill-defined heart diseases Status: Acute (7) Right ventricular systolic dysfunction: Code(s): I51.89 - Other ill-defined heart diseases Status: Acute (8) Protein-calorie malnutrition, moderate: Code(s): E44.0 - Moderate protein-calorie malnutrition Status: Acute Plan Patient has hemorrhagic shock due to upper GI bleed. Gastroenterology has been consulted. Patient received IV push Protonix 40 mg x 1 in the ER. Will given additional 40 mg IV and then initiate Protonix drip. At the time documentation CT of the abdomen and pelvis with contrast is still pending. Patient's blood pressures after 1 L of fluid and 1.5 units of blood has improved to 97/58. Patient has not had any further evidence of bleeding. Heart rate remains stable. Patient does have marked leukocytosis suspected to be due luekamoid reaction. However on my review CT and may be some evidence of infection at the right lung base versus chronic changes are atelectasis. Awaiting official radiologic interpretation determine whether to add antibiotic coverage. If evidence of varices will add octreotide drip. If evidence of large vessel bleed/active extravasation the patient would benefit from transfer to tertiary care instead of admissions at this facility. Given the patient's multiple comorbidities and low blood pressures if the patient does remain at the facility he would be better served by close monitoring in the ICU if he is able to stay at this facility. ICU admission would require acceptance by controller operations and hr manager. Patient does have marked elevation in BUN which could be due to GI bleed but also has acute kidney injury. This could be due to hypovolemia/hypotension or possible some component of urinary outlet obstruction. The patient's bladder appears quite large on imaging. Will have nursing staff check postvoid residual. Patient has combined systolic and diastolic heart failure as well as reduced right-sided cardiac output with severe pulmonary hypertension. Will need to monitor fluid status closely given these multiple factors. Currently patient is stable on his home O2. Patient does have significant protein calorie malnutrition with low serum albumin. He may benefit from albumin supplementation if hypotension persists. Would benefit from dietary supplements. patient with anemia and concern for upper GI bleed, resulting in hypotension, causing him to have hemorrhagic shock patient was given fluids, 1 unit of PRBC started on Protonix IV drip, which did help improve patient BP, plan was to transfer the patient to a tertiary care but no bed was available, on 08/19 patient clinically improved, his BP had improved his Hgb had stabilized, and patient was seen by GI and had EGD which showed bleeding ulcer which was cauterized, patient did have shortness of breath after the procedure and repeat hgb is stable. today patient hgb is trending down 6.6 will give, most likely patient is bleeding again, patient will be seen by GI and further recommendation to follow. Patient is present in the room gave updates. Subjective Date/time seen: 08/21/24 14:22 Interval history: Black stools, belly pain Narrative: Pleasant 79-year-old male with a past medical history right-sided heart failure, combined systolic diastolic heart failure, chronic hypoxic respiratory failure on 6 L nasal cannula, severe pulmonary hypertension, obstructive sleep apnea, coronary artery disease status post three-vessel CABG, essential hypertension and iron deficiency anemia with multiple recent iron infusions who presented to the ER via EMS after passing a melenic stool. The patient reported that he has been having 2 of generalized abdominal pain and started having some dry heaves at home. He denied actually having any emesis but on arrival to the ER the patient had evidence of bright red blood in his oral mucosa and at the time my evaluation he had residual dried blood blow his nose. He denied any chest pain or any increased shortness of breath from baseline but he is on chronic home O2 of 4-5 L nasal cannula. He had been having some upper back pain for the last couple of weeks. He denies any recent NSAID use. He had been receiving iron infusions at [facility] earlier this month. Patient's was noted to be hypotensive on arrival to the ER with systolic blood pressures ranging between the mid 60s in mid 80s. He received 1 L fluid bolus and 2 units of packed red blood cells. Patient's abdomen was noted to be distended but nontender to palpation. After 1 L of fluid and the initial 1 unit of blood patient still remained hypotensive. Patient reports feeling severely chilled but is afebrile. He reports that he always feels cold. He is not on any anticoagulants beyond the 81 mg aspirin for anti-platelet effect. He reports that he feels like he is going to have incontinence of both bowel and bladder with any palpation of his abdomen. He denies any recent dysuria. His bladder was noted to be distended on my review of the CT. Radiologic interpretation of CT is pending. I do not appreciate any free air. patient with anemia and concern for upper GI bleed, resulting in hypotension, causing him to have hemorrhagic shock patient was given fluids, 1 unit of PRBC started on Protonix IV drip, which did help improve patient BP, plan was to transfer the patient to a tertiary care but no bed was available, on 08/19 patient clinically improved, his BP had improved his Hgb had stabilized, and patient was seen by GI and had EGD which showed bleeding ulcer which was cauterized, patient did have shortness of breath after the procedure and repeat hgb is stable. today patient hgb is trending down 6.6 will give, most likely patient is bleeding again, patient will be seen by GI and further recommendation to follow. Patient is present in the room gave updates. Review of Systems Review of Systems: 12 systems were reviewed with pertinent positives and negatives per HPI. Except as documented in the HPI, all other systems were reviewed and are negative. Exam Narrative: Patient is comfortable, NAD HEENT: eyes are clear and none icteric LUNGS:CTA HEART: RR S1S2 ABD: BS+, Soft and nontender Lower extremities: no edema SKIN: nonjaundiced Neuro: grossly intact. Objective Data Vital Signs Vital Signs: Vital Signs - 24 hr 08/20/24 14:38 08/20/24 16:06 08/20/24 16:16 Temperature 36.7 C Pulse Rate 65 90 82 Respiratory Rate 20 32 H 25 H Blood Pressure 99/63 L 123/62 100/57 L Pulse Oximetry 94 90 100 Oxygen Delivery Nasal Cannula Nasal Cannula Simple Face Mask Oxygen Flow Rate 6 6 10 08/20/24 16:26 08/20/24 17:20 08/20/24 20:00 Temperature Pulse Rate 78 Respiratory Rate 28 H Blood Pressure 108/64 Pulse Oximetry 97 100 98 Oxygen Delivery Simple Face Mask High Flow Nasal Cannula Nasal Cannula Oxygen Flow Rate 6 10 6 08/20/24 20:00 08/20/24 20:45 08/20/24 21:54 Temperature 36.8 C Pulse Rate 105 H 85 Respiratory Rate 18 Blood Pressure 114/38 L Pulse Oximetry 99 93 Oxygen Delivery High Flow Nasal Cannula Oxygen Flow Rate 10 08/20/24 22:10 08/21/24 00:00 08/21/24 04:00 Temperature Pulse Rate 92 80 Respiratory Rate Blood Pressure Pulse Oximetry 93 Oxygen Delivery High Flow Nasal Cannula Oxygen Flow Rate 6 08/21/24 06:00 08/21/24 08:00 08/21/24 08:05 Temperature 36.9 C Pulse Rate 73 71 Respiratory Rate 18 Blood Pressure 116/41 L Pulse Oximetry 96 93 Oxygen Delivery Nasal Cannula Oxygen Flow Rate 6 08/21/24 08:20 08/21/24 08:21 08/21/24 09:27 Temperature Pulse Rate 74 79 Respiratory Rate 20 Blood Pressure Pulse Oximetry 94 Oxygen Delivery Nasal Cannula Oxygen Flow Rate 6 08/21/24 09:48 08/21/24 10:04 08/21/24 11:04 Temperature 36.6 C 36.3 C L 36.1 C L Pulse Rate 77 73 84 Respiratory Rate 18 18 18 Blood Pressure 90/54 L 117/95 H 91/54 L Pulse Oximetry 93 96 91 Oxygen Delivery Oxygen Flow Rate 08/21/24 12:00 08/21/24 12:04 08/21/24 12:35 Temperature 36.4 C 36.7 C Pulse Rate 77 80 81 Respiratory Rate 18 16 Blood Pressure 100/55 L 106/53 L Pulse Oximetry 93 98 Oxygen Delivery Oxygen Flow Rate 08/21/24 14:00 Temperature 36.2 C L Pulse Rate 91 Respiratory Rate 18 Blood Pressure 103/52 L Pulse Oximetry 94 Oxygen Delivery Oxygen Flow Rate Intake/Output Intake/Output: Intake & Output 08/18/24 08/19/24 08/20/24 08/21/24 23:59 23:59 23:59 23:59 Intake Total 2450 1837 880 860 Output Total 690 873 195 4703 Balance 1760 1087 330 -740 Meds/Results Medications: Active Medications Generic Name Dose Route Start Last Admin Trade Name Freq PRN Reason Stop Dose Admin Hydrocodone Bitart/Acetaminophen 1 tab 08/19/24 20:00 08/20/24 21:14 Hydrocodone/Acetaminophen (*Crx) 10-325 Mg Tablet PO 1 tab Q8HR PRN Administration pain Albuterol 1 puff 08/19/24 11:11 Albuterol Sulfate (*Sp) Aerosol 1 Puff INHALATION QID PRN shortness of breath or wheezing Albuterol/Ipratropium 3 ml 08/19/24 11:11 Ipratropium 0.5 Mg/Albuterol Sulfate 2.5 Mg Ampul.Neb 3 Ml INHALATION QID PRN shortness of breath Atorvastatin Calcium 80 mg 08/20/24 09:00 08/21/24 09:26 Atorvastatin 40 Mg Tablet PO 80 mg DAILY SALAZAR Administration Citalopram Hydrobromide 40 mg 08/20/24 09:00 08/21/24 09:26 Citalopram Hydrobromide 20 Mg Tablet PO 40 mg DAILY SALAZAR Administration Ferrous Sulfate 142 mg 08/19/24 17:00 08/21/24 09:27 Ferrous Sulfate Dried 142 Mg Tabcr PO 142 mg BID SALAZAR Administration Fluticasone/Umeclidinium/Vilanterol 1 puff 08/20/24 08:00 08/21/24 08:17 Fluticasone/Umeclidin/Vilanter 100-62.5-25 Mcg Ellipta INHALATION 1 puff DAILYRT SALAZAR Administration Furosemide 40 mg 08/20/24 09:00 08/21/24 09:26 Furosemide 40 Mg Tablet PO 40 mg DAILY SALAZAR Administration Sodium Chloride 250 mls @ 30 mls/hr 08/21/24 05:59 08/21/24 12:35 Normal Saline Iv IV CONT 08/21/24 14:18 Infused .Q8H20M STA Infusion Losartan Potassium 25 mg 08/20/24 09:00 08/21/24 09:26 Losartan Potassium 25 Mg Tablet PO 25 mg DAILY SALAZAR Administration Methocarbamol 750 mg 08/19/24 11:11 08/20/24 21:14 Methocarbamol 750 Mg Tablet PO 750 mg TID PRN Administration muscle spasm Metoprolol Succinate 25 mg 08/20/24 09:00 08/21/24 09:27 Metoprolol Succinate Ext Rel 25 Mg Tabcr PO 25 mg DAILY SALAZAR Administration Mirtazapine 15 mg 08/19/24 21:00 08/20/24 21:15 Mirtazapine 15 Mg Tablet BY MOUTH 15 mg HS SALAZAR Administration Ondansetron HCl 4 mg 08/20/24 08:16 08/20/24 08:52 Ondansetron Inj 4 Mg/2 Ml Vial IV PUSH 4 mg Q6H PRN Administration Nausea And Vomiting Pantoprazole Sodium 40 mg 08/19/24 21:00 08/21/24 09:26 Pantoprazole Sodium Iv 40 Mg Vial IV PUSH 40 mg Q12HR SALAZAR Administration Prednisone 20 mg 08/19/24 11:15 08/21/24 09:26 Prednisone 20 Mg Tablet BY MOUTH 20 mg DAILY SALAZAR Administration Sildenafil Citrate 40 mg 08/19/24 13:00 08/21/24 12:38 Sildenafil Citrate 20 Mg Tablet PO 40 mg TID SALAZAR Administration Spironolactone 25 mg 08/20/24 09:00 08/21/24 09:26 Spironolactone 25 Mg Tablet PO 25 mg DAILY SALAZAR Administration Radiology Results: ITS Impressions Abdomen/Pelvis CT 08/18/24 07:00 IMPRESSION: 1. Fluid throughout much of the colon consistent nonspecific diarrhea which could be due to gastroenteritis or reported gastrointestinal bleed. There are 5 small foci of high attenuation within the ascending colon which are similar in density to the contrast in the colon which could represent foci of active extravasation although the multiplicity and dependent distribution would favor high attenuation material within the fecal stream. 2. Mild diffuse gallbladder wall thickening with mild stranding near the fundus but without dilation to more specifically suggest acute cholecystitis. This could be due to decompressed state or potentially chronic cholecystitis. Correlate clinically for Arora sign and if indicated could consider further evaluation with either right upper quadrant ultrasound or HIDA scan. 3. 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 4. Extensive atherosclerotic disease with multifocal severe stenosis along the left external, superficial femoral and deep femoral arteries and at the right deep femoral artery with moderate stenosis at the right superficial femoral artery. 5. Numerous compression and burst fractures from T9 through L5 sparing L2 and several which appear relatively recent and new since 05/29/2024. Chest X-Ray 08/18/24 07:18 IMPRESSION: 1. Emphysema with stable appearance of atelectasis/scarring at the bilateral lower lung zones. Labs Labs: Laboratory Results - last 24 hr 08/20/24 08/20/24 08/21/24 17:05 17:53 05:11 WBC 26.0 H 14.1 H RBC 2.71 L 2.39 L Hgb 7.6 L 6.6 L* Hct 25.3 L 22.0 L MCV 93.4 92.1 MCH 28.0 D 27.6 MCHC 30.0 L 30.0 L RDW 23.4 H 23.6 H Plt Count 182 132 L MPV 10.5 H 10.1 Sodium 136 L Potassium 3.9 Chloride 110 H Carbon Dioxide 21 L Anion Gap 5 BUN 51 H D Creatinine 0.97 Estim Creat Clear Calc 53 Estimated GFR > 60 Glucose 78 Calcium 7.9 L Total Bilirubin 1.0 AST 46 ALT 69 H Alkaline Phosphatase 155 H Total Protein 4.0 L Albumin 2.1 L POC H. pylori Urease Negative Blood Type Antibody Screen Crossmatch 08/21/24 08/21/24 06:27 13:50 WBC RBC Hgb 8.8 L Hct 29.7 L MCV MCH MCHC RDW Plt Count MPV Sodium Potassium Chloride Carbon Dioxide Anion Gap BUN Creatinine Estim Creat Clear Calc Estimated GFR Glucose Calcium Total Bilirubin AST ALT Alkaline Phosphatase Total Protein Albumin POC H. pylori Urease Blood Type O Positive Antibody Screen Negative Crossmatch See Detail Quality VTE Prophylaxis VTE prophylaxis: mechanical ordered (SCDs)
--- NOTE | 2024-08-21 16:08 | WPDGIPROGNO ---
Progress Note: A&P Assessment and Plan (1) Hematemesis: Code(s): K92.0 - Hematemesis Status: Acute Assessment and Plan: from large gastric ulcer no more bleeding but continue to monitor h/h, s/p prbc iv protonix h pylori negative repeat egd in 3-4 months to assess healing will advance diet (2) Gastric ulcer: Code(s): K25.9 - Gastric ulcer, unspecified as acute or chronic, without hemorrhage or perforation Status: Acute (3) Acute blood loss anemia: Code(s): D62 - Acute posthemorrhagic anemia Status: Acute (4) Combined systolic and diastolic cardiac dysfunction: Code(s): I51.89 - Other ill-defined heart diseases Status: Acute (5) Hemorrhagic shock: Code(s): R57.8 - Other shock Status: Acute Assessment and Plan: treated and resolved Subjective Date/time seen: 08/21/24 16:08 Interval history: egd yesterday with blood from large gastric ulcer treated with gold probe and epi no more signs of bleeding, he is resting he has a friend at bedside Review of Systems Review of Systems: All systems reviewed & are unremarkable except as noted in HPI and below Exam Const: General: comfortable HENMT: Face/Nose/Sinus: Normal nares present Eyes: General: appearance normal, both eyes and all related structures Neck: Neck: supple Resp: Auscultation: clear to auscultation bilaterally Cardio: Rate: regular rate Rhythm: regular rhythm GI: Inspection: non-distended GI Palp: Yes Soft to palpation and No Tenderness to palpation present (GI) Skin: Other: pallor Neuro: Speech: normal speech Extrem: General: normal to inspection Psych: Mental Status: mental status grossly normal Objective Data Vital Signs Vital Signs: Vital Signs - 24 hr 08/20/24 16:16 08/20/24 16:26 08/20/24 17:20 Temperature Pulse Rate 82 78 Respiratory Rate 25 H 28 H Blood Pressure 100/57 L 108/64 Pulse Oximetry 100 97 100 Oxygen Delivery Simple Face Mask Simple Face Mask High Flow Nasal Cannula Oxygen Flow Rate 10 6 10 08/20/24 20:00 08/20/24 20:00 08/20/24 20:45 Temperature Pulse Rate 105 H Respiratory Rate Blood Pressure Pulse Oximetry 98 99 Oxygen Delivery Nasal Cannula High Flow Nasal Cannula Oxygen Flow Rate 6 10 08/20/24 21:54 08/20/24 22:10 08/21/24 00:00 Temperature 98.2 F Pulse Rate 85 92 Respiratory Rate 18 Blood Pressure 114/38 L Pulse Oximetry 93 93 Oxygen Delivery High Flow Nasal Cannula Oxygen Flow Rate 6 08/21/24 04:00 08/21/24 06:00 08/21/24 08:00 Temperature 98.4 F Pulse Rate 80 73 Respiratory Rate 18 Blood Pressure 116/41 L Pulse Oximetry 96 93 Oxygen Delivery Nasal Cannula Oxygen Flow Rate 6 08/21/24 08:05 08/21/24 08:20 08/21/24 08:21 Temperature Pulse Rate 71 74 Respiratory Rate 20 Blood Pressure Pulse Oximetry 94 Oxygen Delivery Nasal Cannula Oxygen Flow Rate 6 08/21/24 09:27 08/21/24 09:48 08/21/24 10:04 Temperature 98 F 97.3 F L Pulse Rate 79 77 73 Respiratory Rate 18 18 Blood Pressure 90/54 L 117/95 H Pulse Oximetry 93 96 Oxygen Delivery Oxygen Flow Rate 08/21/24 11:04 08/21/24 12:00 08/21/24 12:04 Temperature 97.0 F L 97.6 F Pulse Rate 84 77 80 Respiratory Rate 18 18 Blood Pressure 91/54 L 100/55 L Pulse Oximetry 91 93 Oxygen Delivery Oxygen Flow Rate 08/21/24 12:35 08/21/24 14:00 Temperature 98.0 F 97.2 F L Pulse Rate 81 91 Respiratory Rate 16 18 Blood Pressure 106/53 L 103/52 L Pulse Oximetry 98 94 Oxygen Delivery Oxygen Flow Rate Intake/Output Intake/Output: Intake & Output 08/18/24 08/19/24 08/20/24 08/21/24 23:59 23:59 23:59 23:59 Intake Total 2450 1837 880 860 Output Total 690 448 447 1569 Balance 1760 1087 330 -740 Meds/Results Medications: Active Medications Generic Name Dose Route Start Last Admin Trade Name Freq PRN Reason Stop Dose Admin Hydrocodone Bitart/Acetaminophen 1 tab 08/19/24 20:00 08/20/24 21:14 Hydrocodone/Acetaminophen (*Crx) 10-325 Mg Tablet PO 1 tab Q8HR PRN Administration pain Albuterol 1 puff 08/19/24 11:11 Albuterol Sulfate (*Sp) Aerosol 1 Puff INHALATION QID PRN shortness of breath or wheezing Albuterol/Ipratropium 3 ml 08/19/24 11:11 Ipratropium 0.5 Mg/Albuterol Sulfate 2.5 Mg Ampul.Neb 3 Ml INHALATION QID PRN shortness of breath Atorvastatin Calcium 80 mg 08/20/24 09:00 08/21/24 09:26 Atorvastatin 40 Mg Tablet PO 80 mg DAILY SALAZAR Administration Citalopram Hydrobromide 40 mg 08/20/24 09:00 08/21/24 09:26 Citalopram Hydrobromide 20 Mg Tablet PO 40 mg DAILY SALAZAR Administration Ferrous Sulfate 142 mg 08/19/24 17:00 08/21/24 09:27 Ferrous Sulfate Dried 142 Mg Tabcr PO 142 mg BID SALAZAR Administration Fluticasone/Umeclidinium/Vilanterol 1 puff 08/20/24 08:00 08/21/24 08:17 Fluticasone/Umeclidin/Vilanter 100-62.5-25 Mcg Ellipta INHALATION 1 puff DAILYRT SALAZAR Administration Furosemide 40 mg 08/20/24 09:00 08/21/24 09:26 Furosemide 40 Mg Tablet PO 40 mg DAILY SALAZAR Administration Losartan Potassium 25 mg 08/20/24 09:00 08/21/24 09:26 Losartan Potassium 25 Mg Tablet PO 25 mg DAILY SALAZAR Administration Methocarbamol 750 mg 08/19/24 11:11 08/20/24 21:14 Methocarbamol 750 Mg Tablet PO 750 mg TID PRN Administration muscle spasm Metoprolol Succinate 25 mg 08/20/24 09:00 08/21/24 09:27 Metoprolol Succinate Ext Rel 25 Mg Tabcr PO 25 mg DAILY SALAZAR Administration Mirtazapine 15 mg 08/19/24 21:00 08/20/24 21:15 Mirtazapine 15 Mg Tablet BY MOUTH 15 mg HS SALAZAR Administration Ondansetron HCl 4 mg 08/20/24 08:16 08/20/24 08:52 Ondansetron Inj 4 Mg/2 Ml Vial IV PUSH 4 mg Q6H PRN Administration Nausea And Vomiting Pantoprazole Sodium 40 mg 08/19/24 21:00 08/21/24 09:26 Pantoprazole Sodium Iv 40 Mg Vial IV PUSH 40 mg Q12HR SALAZAR Administration Prednisone 20 mg 08/19/24 11:15 08/21/24 09:26 Prednisone 20 Mg Tablet BY MOUTH 20 mg DAILY SALAZAR Administration Sildenafil Citrate 40 mg 08/19/24 13:00 08/21/24 12:38 Sildenafil Citrate 20 Mg Tablet PO 40 mg TID SALAZAR Administration Spironolactone 25 mg 08/20/24 09:00 08/21/24 09:26 Spironolactone 25 Mg Tablet PO 25 mg DAILY SALAZAR Administration Radiology Results: ITS Impressions Abdomen/Pelvis CT 08/18/24 07:00 IMPRESSION: 1. Fluid throughout much of the colon consistent nonspecific diarrhea which could be due to gastroenteritis or reported gastrointestinal bleed. There are 5 small foci of high attenuation within the ascending colon which are similar in density to the contrast in the colon which could represent foci of active extravasation although the multiplicity and dependent distribution would favor high attenuation material within the fecal stream. 2. Mild diffuse gallbladder wall thickening with mild stranding near the fundus but without dilation to more specifically suggest acute cholecystitis. This could be due to decompressed state or potentially chronic cholecystitis. Correlate clinically for Arora sign and if indicated could consider further evaluation with either right upper quadrant ultrasound or HIDA scan. 3. 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 4. Extensive atherosclerotic disease with multifocal severe stenosis along the left external, superficial femoral and deep femoral arteries and at the right deep femoral artery with moderate stenosis at the right superficial femoral artery. 5. Numerous compression and burst fractures from T9 through L5 sparing L2 and several which appear relatively recent and new since 05/29/2024. Chest X-Ray 08/18/24 07:18 IMPRESSION: 1. Emphysema with stable appearance of atelectasis/scarring at the bilateral lower lung zones. Labs Labs: Laboratory Results - last 24 hr 08/20/24 08/20/24 08/21/24 17:05 17:53 05:11 WBC 26.0 H 14.1 H RBC 2.71 L 2.39 L Hgb 7.6 L 6.6 L* Hct 25.3 L 22.0 L MCV 93.4 92.1 MCH 28.0 D 27.6 MCHC 30.0 L 30.0 L RDW 23.4 H 23.6 H Plt Count 182 132 L MPV 10.5 H 10.1 Sodium 136 L Potassium 3.9 Chloride 110 H Carbon Dioxide 21 L Anion Gap 5 BUN 51 H D Creatinine 0.97 Estim Creat Clear Calc 53 Estimated GFR > 60 Glucose 78 Calcium 7.9 L Total Bilirubin 1.0 AST 46 ALT 69 H Alkaline Phosphatase 155 H Total Protein 4.0 L Albumin 2.1 L POC H. pylori Urease Negative Blood Type Antibody Screen Crossmatch 08/21/24 08/21/24 06:27 13:50 WBC RBC Hgb 8.8 L Hct 29.7 L MCV MCH MCHC RDW Plt Count MPV Sodium Potassium Chloride Carbon Dioxide Anion Gap BUN Creatinine Estim Creat Clear Calc Estimated GFR Glucose Calcium Total Bilirubin AST ALT Alkaline Phosphatase Total Protein Albumin POC H. pylori Urease Blood Type O Positive Antibody Screen Negative Crossmatch See Detail
[2024-08-21] MEDS: HYDROcodone/acetaminophen (*CRX) 10-325 MG TABLET 1 TAB PO (20:25)
[2024-08-21] MEDS: MIRTAZAPINE 15 MG TABLET BY MOUTH (20:25)
[2024-08-21] MEDS: methocarbamoL 750 MG TABLET PO (20:25)
[2024-08-22] VITALS (13 sets, daily range): BP systolic 86–96; BP diastolic 42–49; PULSE 54–88; RESP 14–18; TEMP 36.4–36.8; O2SAT 92–100
--- NOTE | 2024-08-22 04:12 | ECG_ITS ---
Test Date: 2024-08-22 04:35:55 Measurements Intervals [place] Rate: 51 P: 32 CA: 147 QRS: -77 QRSD: 179 T: 75 QT: 495 QTc: 458 Interpretive Statements SINUS BRADYCARDIA LEFT AXIS DEVIATION LEFT BUNDLE BRANCH BLOCK BASELINE ARTIFACT- I, II, III, AVR, AVL, AVF ABNORMAL ECG Compared to ECG 08/18/2024 02:24:00 HEART RATE HAS DECREASED LEFT BUNDLE BRANCH BLOCK NOW PRESENT Electronically Signed On 08-22-2024 06:39:47 CDT by Nils Valle D.O.
[2024-08-22 05:57] LABS: Hematocrit 23.8 % (42.0-52.0); Mean Corpuscular HGB Conc 29.4 g/dl (32-36); Mean Corpuscular Hemoglobin 27.3 pg (26-34); Mean Platelet Volume 10.8 fl (7.4-10.4); Platelet Count Result 114 k/mm3 (150-375); Red Blood Count 2.56 M/mm3 (4.6-6.20); Red Cell Distribution Width 23.2 % (11.5-14.5); White Blood Count 11.3 K/mm3 (4.5-10.0)
[2024-08-22 06:20] LABS: Alanine Aminotransferase 48 U/L (6-50); Alkaline Phosphatase 132 U/L (38-126); Anion Gap 3 mmol/L (4-12); Aspartate Amino Transferase 27 U/L (17-59); Bilirubin,Total 0.8 mg/dL (0.2-1.3); Blood Urea Nitrogen 31 mg/dL (9-20); Calcium 7.3 mg/dL (8.4-10.2); Carbon Dioxide 22 mmol/L (22-30); Chloride 109 mmol/L (98-107); Estimated CRCL calculation 57 ml/min; Estimated Glomerular Filt Rate > 60; Glucose 99 mg/dL (65-110); Sodium 134 mmol/L (137-145)
[2024-08-22] MEDS: SILDENAFIL CITRATE 20 MG TABLET 40 MG PO ×3 (08:14→17:38)
[2024-08-22] MEDS: FERROUS SULFATE DRIED 142 MG TABCR PO ×2 (08:15→17:38)
[2024-08-22] MEDS: METOPROLOL SUCCINATE EXT REL 25 MG TABCR PO (08:15)
[2024-08-22] MEDS: predniSONE 20 MG TABLET BY MOUTH (08:15)
[2024-08-22] MEDS: PANTOPRAZOLE SODIUM IV 40 MG VIAL IV PUSH ×2 (08:15→21:04)
[2024-08-22] MEDS: SPIRONOLACTONE 25 MG TABLET PO (08:15)
[2024-08-22] MEDS: FUROSEMIDE 40 MG TABLET PO (08:15)
[2024-08-22] MEDS: LOSARTAN POTASSIUM 25 MG TABLET PO (08:15)
[2024-08-22] MEDS: ATORVASTATIN 40 MG TABLET 80 MG PO (08:15)
[2024-08-22] MEDS: CITALOPRAM HYDROBROMIDE 20 MG TABLET 40 MG PO (08:18)
[2024-08-22] MEDS: FLUTICASONE/UMECLIDIN/VILANTER 100-62.5-25 MCG ELLIPTA 1 PUFF INHALATION (08:59)
[2024-08-22] MEDS: POTASSIUM CHLORIDE INJ 40 MEQ in SODIUM CHLORIDE 0.9% IV 500 ML 130 MEQ IVPB (11:58)
--- NOTE | 2024-08-22 14:37 | PCPTNOTE ---
Attempted PT evaluation, pt with OT. Will follow.
--- NOTE | 2024-08-22 15:47 | P.PNIM_ITS ---
Progress Note: A&P Assessment and Plan (1) Hemorrhagic shock: Code(s): R57.8 - Other shock Status: Acute Assessment and Plan: Patient has hemorrhagic shock due to upper GI bleed. Gastroenterology has been consulted. Patient received IV push Protonix 40 mg x 1 in the ER. Will given additional 40 mg IV and then initiate Protonix drip. At the time documentation CT ABD showed Fluid throughout much of the colon consistent nonspecific diarrhea which could be due to gastroenteritis or reported gastrointestinal bleed. There are 5 small foci of high attenuation within the ascending colon which are similar in density to the contrast in the colon which could represent foci of active extravasation although the multiplicity and dependent distribution would favor high attenuation material within the fecal stream.. Patient's blood pressures after 1 L of fluid and 1.5 units of blood has improved to 97/58. GI was consulted and he was taken for EGD showed bleeding ulcer which was caut erized, patient did have shortness of breath after the procedure and repeat hgb was stable. Hgb post procedure 8.8 following day 08/22 dropped to 7.0 repeat H&H pending and still moderately hypotensive. * Monitor H&H * Protonix BID * Transfuse 1 unit PRBC if Hgb <7.0 * Still with hypotension holding Lasix and spironolactone until BP tolerates * added albumin IV (2) Acute upper gastrointestinal bleeding: Code(s): K92.2 - Gastrointestinal hemorrhage, unspecified Status: Acute Assessment and Plan: SEE Above (3) Acute blood loss anemia: Code(s): D62 - Acute posthemorrhagic anemia Status: Acute Assessment and Plan: SEE ABOVE (4) Leukocytosis: Qualifiers: Leukocytosis type: leukemoid reaction Qualified Code(s): D72.823 - Leukemoid reaction Code(s): D72.829 - Elevated white blood cell count, unspecified Status: Acute Assessment and Plan: Patient does have marked leukocytosis suspected to be due leukemoid reaction. No signs of infectious cause * Daily CBC resolving (5) Chronic respiratory failure with hypoxia, on home oxygen therapy: Code(s): J96.11 - Chronic respiratory failure with hypoxia; Z99.81 - Dependence on supplemental oxygen Status: Chronic Assessment and Plan: Patient wears 6L supplemental oxygen at home * Currently on his 6 L (6) Combined systolic and diastolic cardiac dysfunction: Code(s): I51.89 - Other ill-defined heart diseases Status: Acute Assessment and Plan: Patient has combined systolic and diastolic heart failure as well as reduced right-sided cardiac output with severe pulmonary hypertension. Will need to monitor fluid status closely given these multiple factors. Currently patient is stable on his home O2. * Resume Lasix when BP tolerates * Continuous cardiac monitoring (7) Protein-calorie malnutrition, moderate: Code(s): E44.0 - Moderate protein-calorie malnutrition Status: Acute Assessment and Plan: Patient does have significant protein calorie malnutrition with low serum albumin. * added albumin * add Protein shakes with each meal Plan Code status: Full code per patient DVT prophylaxis: Lovenox Stress ulcer prophylaxis: Protonix 40 daily PT/OT notes: PT/OT evaluation pending Disposition: Patient continues admission post hemorrhagic shock upper GI bleed have large ulcer cauterized and injected with epi wanting to continue to monitor H&H. PT/OT has been ordered for further evaluation and CC consulted plan is for discharge show rehab/SNF. Time Spent With Patient Time with patient: 15 - 25 minutes Subjective Date/time seen: 08/22/24 15:47 Interval history: patient is a 79-year-old male who was admitted for further evaluation treatment of with anemia and concern for upper GI bleed, resulting in hypotension, causing him to have hemorrhagic shock patient was given fluids, 1 unit of PRBC started on Protonix IV drip, seen by GI and had EGD which showed bleeding ulcer which was cauterized, patient did have shortness of breath after the procedure and repeat hgb is stable. 08/22/2024: Patient with no acute distress reports he felt better yesterday but still feels he is experiencing generalized weakness today he is currently on 6 L carr pplemental oxygen which he chronically wears at home. Patient also reports a has a chills but no fever and poor appetite. Hemoglobin dropped to 7.0 will get follow-up stat hemoglobin. Patient denied any further nausea vomiting no bloody emesis or blood in stool. at bedside and updated. Review of Systems Review of Systems: 12 systems were reviewed with pertinent positives and negatives per HPI. Except as documented in the HPI, all other systems were reviewed and are negative. All systems reviewed & are unremarkable except as noted in HPI and below Exam Narrative: Patient is comfortable, NAD HEENT: eyes are clear and none icteric LUNGS:CTA HEART: RR S1S2 ABD: BS+, Soft and nontender Lower extremities: no edema SKIN: nonjaundiced Neuro: grossly intact. Objective Data Vital Signs Vital Signs: Vital Signs - 24 hr 08/21/24 16:04 08/21/24 20:00 08/21/24 20:00 Temperature Pulse Rate 78 70 Respiratory Rate Blood Pressure Pulse Oximetry 95 Oxygen Delivery Nasal Cannula Oxygen Flow Rate 6 Fraction of Inspired Oxygen 08/21/24 21:01 08/21/24 21:25 08/22/24 00:00 Temperature 97.6 F Pulse Rate 75 67 54 L Respiratory Rate 18 Blood Pressure 100/48 L Pulse Oximetry 92 94 Oxygen Delivery High Flow Nasal Cannula Oxygen Flow Rate 6 Fraction of Inspired Oxygen 44 08/22/24 04:00 08/22/24 04:13 08/22/24 08:04 Temperature 97.8 F Pulse Rate 56 L 57 L 59 L Respiratory Rate 14 Blood Pressure 92/48 L Pulse Oximetry 94 Oxygen Delivery Oxygen Flow Rate Fraction of Inspired Oxygen 08/22/24 08:15 08/22/24 08:27 08/22/24 08:59 Temperature Pulse Rate 62 75 Respiratory Rate Blood Pressure Pulse Oximetry 92 92 Oxygen Delivery Nasal Cannula High Flow Nasal Cannula Oxygen Flow Rate 6 6 Fraction of Inspired Oxygen 08/22/24 12:00 08/22/24 14:00 08/22/24 14:47 Temperature 98.2 F Pulse Rate 88 65 Respiratory Rate 18 Blood Pressure 86/49 L Pulse Oximetry 100 Oxygen Delivery Nasal Cannula Oxygen Flow Rate 6 Fraction of Inspired Oxygen Intake/Output Intake/Output: Intake & Output 08/19/24 08/20/24 08/21/24 08/22/24 23:59 23:59 23:59 23:59 Intake Total 3994 869 6080 630 Output Total 252 262 3624 750 Balance 1082 291 -300 -400 Meds/Results Medications: Active Medications Generic Name Dose Route Start Last Admin Trade Name Freq PRN Reason Stop Dose Admin Hydrocodone Bitart/Acetaminophen 1 tab 08/19/24 20:00 08/21/24 20:25 Hydrocodone/Acetaminophen (*Crx) 10-325 Mg Tablet PO 1 tab Q8HR PRN Administration pain Albuterol 1 puff 08/19/24 11:11 Albuterol Sulfate (*Sp) Aerosol 1 Puff INHALATION QID PRN shortness of breath or wheezing Albuterol/Ipratropium 3 ml 08/19/24 11:11 Ipratropium 0.5 Mg/Albuterol Sulfate 2.5 Mg Ampul.Neb 3 Ml INHALATION QID PRN shortness of breath Atorvastatin Calcium 80 mg 08/20/24 09:00 08/22/24 08:15 Atorvastatin 40 Mg Tablet PO 80 mg DAILY SALAZAR Administration Citalopram Hydrobromide 40 mg 08/20/24 09:00 08/22/24 08:18 Citalopram Hydrobromide 20 Mg Tablet PO 40 mg DAILY SALAZAR Administration Ferrous Sulfate 142 mg 08/19/24 17:00 08/22/24 08:15 Ferrous Sulfate Dried 142 Mg Tabcr PO 142 mg BID SALAZAR Administration Fluticasone/Umeclidinium/Vilanterol 1 puff 08/20/24 08:00 08/22/24 08:59 Fluticasone/Umeclidin/Vilanter 100-62.5-25 Mcg Ellipta INHALATION 1 puff DAILYRT SALAZAR Administration Furosemide 40 mg 08/20/24 09:00 08/22/24 08:15 Furosemide 40 Mg Tablet PO 40 mg DAILY SALAZAR Administration Losartan Potassium 25 mg 08/20/24 09:00 08/22/24 08:15 Losartan Potassium 25 Mg Tablet PO 25 mg DAILY SALAZAR Administration Methocarbamol 750 mg 08/19/24 11:11 08/21/24 20:25 Methocarbamol 750 Mg Tablet PO 750 mg TID PRN Administration muscle spasm Metoprolol Succinate 25 mg 08/20/24 09:00 08/22/24 08:15 Metoprolol Succinate Ext Rel 25 Mg Tabcr PO 25 mg DAILY SALAZAR Administration Mirtazapine 15 mg 08/19/24 21:00 08/21/24 20:25 Mirtazapine 15 Mg Tablet BY MOUTH 15 mg HS SALAZAR Administration Ondansetron HCl 4 mg 08/20/24 08:16 08/20/24 08:52 Ondansetron Inj 4 Mg/2 Ml Vial IV PUSH 4 mg Q6H PRN Administration Nausea And Vomiting Pantoprazole Sodium 40 mg 08/19/24 21:00 08/22/24 08:15 Pantoprazole Sodium Iv 40 Mg Vial IV PUSH 40 mg Q12HR SALAZAR Administration Prednisone 20 mg 08/19/24 11:15 08/22/24 08:15 Prednisone 20 Mg Tablet BY MOUTH 20 mg DAILY SALAZAR Administration Sildenafil Citrate 40 mg 08/19/24 13:00 08/22/24 12:01 Sildenafil Citrate 20 Mg Tablet PO 40 mg TID SALAZAR Administration Spironolactone 25 mg 08/20/24 09:00 08/22/24 08:15 Spironolactone 25 Mg Tablet PO 25 mg DAILY SALAZAR Administration Radiology Results: ITS Impressions Abdomen/Pelvis CT 08/18/24 07:00 IMPRESSION: 1. Fluid throughout much of the colon consistent nonspecific diarrhea which could be due to gastroenteritis or reported gastrointestinal bleed. There are 5 small foci of high attenuation within the ascending colon which are similar in density to the contrast in the colon which could represent foci of active extravasation although the multiplicity and dependent distribution would favor high attenuation material within the fecal stream. 2. Mild diffuse gallbladder wall thickening with mild stranding near the fundus but without dilation to more specifically suggest acute cholecystitis. This could be due to decompressed state or potentially chronic cholecystitis. Correlate clinically for Arora sign and if indicated could consider further evaluation with either right upper quadrant ultrasound or HIDA scan. 3. 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 4. Extensive atherosclerotic disease with multifocal severe stenosis along the left external, superficial femoral and deep femoral arteries and at the right deep femoral artery with moderate stenosis at the right superficial femoral artery. 5. Numerous compression and burst fractures from T9 through L5 sparing L2 and several which appear relatively recent and new since 05/29/2024. Chest X-Ray 08/18/24 07:18 IMPRESSION: 1. Emphysema with stable appearance of atelectasis/scarring at the bilateral lower lung zones. Labs Labs: Laboratory Results - last 24 hr 08/22/24 05:42 WBC 11.3 H RBC 2.56 L Hgb 7.0 L Hct 23.8 L MCV 93.0 MCH 27.3 MCHC 29.4 L RDW 23.2 H Plt Count 114 L MPV 10.8 H Sodium 134 L Potassium 3.0 L Chloride 109 H Carbon Dioxide 22 Anion Gap 3 L BUN 31 H D Creatinine 0.89 Estim Creat Clear Calc 57 Estimated GFR > 60 Glucose 99 Calcium 7.3 L Total Bilirubin 0.8 AST 27 ALT 48 Alkaline Phosphatase 132 H Total Protein 4.0 L Albumin 2.0 L Quality VTE Prophylaxis VTE prophylaxis: mechanical ordered (SCDs) -Patient's previous records reviewed on admission -ER notes reviewed in detail on admission -discussed all findings and current treatment plan with patient/Family/POA -Consultations reviewed for recommendations -Patient's disposition for safe discharge discussed with bottle caser Dictation performed by [employer] direct speech recognition software, therefore map colorer variants and typographical errors may occur. Hospitalist MIPS Advance Care Plan I have confirmed that the patient's Advanced Care Plan is present, code status is documented, or surrogate decision maker is listed in patient medical record.: Yes Medication Reconciliation I have utilized all available resources to obtain, update and review the patients current medications (includes all prescriptions, OTC, herbals, cannabis, and nutritional supplements).: Yes The patient is not eligible for med reconciliation; the patient is in a emergent medical situation where delaying treatment would jeopardize the patients health.: No
[2024-08-22 16:38] LABS: Hematocrit 26.5 % (42.0-52.0); Hemoglobin 7.8 g/dL (14.0-18.0)
[2024-08-22] MEDS: ALBUMIN HUMAN 25% 25 GM/100 ML 100 ML IVPB ×2 (17:39→23:20)
--- NOTE | 2024-08-22 18:16 | P.PNGI_ITS ---
Progress Note: A&P Assessment and Plan (1) Hematemesis: Code(s): K92.0 - Hematemesis Status: Acute Assessment and Plan: from large gastric ulcer no more bleeding but continue to monitor h/h, s/p prbc- running low but no overt gib iv protonix and iron h pylori negative repeat egd in 3-4 months to assess healing tolerating diet diet (2) Gastric ulcer: Code(s): K25.9 - Gastric ulcer, unspecified as acute or chronic, without hemorrhage or perforation Status: Acute Assessment and Plan: treated protonix (3) Acute blood loss anemia: Code(s): D62 - Acute posthemorrhagic anemia Status: Acute Assessment and Plan: monitor for more signs of bleeding (4) Combined systolic and diastolic cardiac dysfunction: Code(s): I51.89 - Other ill-defined heart diseases Status: Acute Subjective Date/time seen: 08/22/24 18:16 Interval history: just fatigue but no more gib, no BM today tolerating diet Review of Systems Review of Systems: All systems reviewed & are unremarkable except as noted in HPI and below Exam Const: General: comfortable HENMT: Face/Nose/Sinus: Normal nares present Eyes: General: appearance normal, both eyes and all related structures Neck: Neck: supple Resp: Auscultation: clear to auscultation bilaterally Cardio: Rate: regular rate Rhythm: regular rhythm GI: Inspection: non-distended GI Palp: Yes Soft to palpation and No Tender ness to palpation present (GI) Skin: Other: pallor Neuro: Speech: normal speech Extrem: General: normal to inspection Psych: Mental Status: mental status grossly normal Objective Data Vital Signs Vital Signs: Vital Signs - 24 hr 08/21/24 20:00 08/21/24 20:00 08/21/24 21:01 Temperature Pulse Rate 70 75 Respiratory Rate Blood Pressure Pulse Oximetry 95 92 Oxygen Delivery Nasal Cannula High Flow Nasal Cannula Oxygen Flow Rate 6 6 Fraction of Inspired Oxygen 44 08/21/24 21:25 08/22/24 00:00 08/22/24 04:00 Temperature 97.6 F Pulse Rate 67 54 L 56 L Respiratory Rate 18 Blood Pressure 100/48 L Pulse Oximetry 94 Oxygen Delivery Oxygen Flow Rate Fraction of Inspired Oxygen 08/22/24 04:13 08/22/24 08:04 08/22/24 08:15 Temperature 97.8 F Pulse Rate 57 L 59 L 62 Respiratory Rate 14 Blood Pressure 92/48 L Pulse Oximetry 94 Oxygen Delivery Oxygen Flow Rate Fraction of Inspired Oxygen 08/22/24 08:27 08/22/24 08:59 08/22/24 12:00 Temperature Pulse Rate 75 88 Respiratory Rate Blood Pressure Pulse Oximetry 92 92 Oxygen Delivery Nasal Cannula High Flow Nasal Cannula Oxygen Flow Rate 6 6 Fraction of Inspired Oxygen 08/22/24 14:00 08/22/24 14:47 Temperature 98.2 F Pulse Rate 65 Respiratory Rate 18 Blood Pressure 86/49 L Pulse Oximetry 100 Oxygen Delivery Nasal Cannula Oxygen Flow Rate 6 Fraction of Inspired Oxygen Intake/Output Intake/Output: Intake & Output 08/19/24 08/20/24 08/21/24 08/22/24 23:59 23:59 23:59 23:59 Intake Total 9664 188 0468 630 Output Total 567 629 8035 750 Balance 1087 330 -560 -120 Meds/Results Medications: Active Medications Generic Name Dose Route Start Last Admin Trade Name Freq PRN Reason Stop Dose Admin Hydrocodone Bitart/Acetaminophen 1 tab 08/19/24 20:00 08/21/24 20:25 Hydrocodone/Acetaminophen (*Crx) 10-325 Mg Tablet PO 1 tab Q8HR PRN Administration pain Albuterol 1 puff 08/19/24 11:11 Albuterol Sulfate (*Sp) Aerosol 1 Puff INHALATION QID PRN shortness of breath or wheezing Albuterol/Ipratropium 3 ml 08/19/24 11:11 Ipratropium 0.5 Mg/Albuterol Sulfate 2.5 Mg Ampul.Neb 3 Ml INHALATION QID PRN shortness of breath Atorvastatin Calcium 80 mg 08/20/24 09:00 08/22/24 08:15 Atorvastatin 40 Mg Tablet PO 80 mg DAILY SALAZAR Administration Citalopram Hydrobromide 40 mg 08/20/24 09:00 08/22/24 08:18 Citalopram Hydrobromide 20 Mg Tablet PO 40 mg DAILY SALAZAR Administration Ferrous Sulfate 142 mg 08/19/24 17:00 08/22/24 17:38 Ferrous Sulfate Dried 142 Mg Tabcr PO 142 mg BID SALAZAR Administration Fluticasone/Umeclidinium/Vilanterol 1 puff 08/20/24 08:00 08/22/24 08:59 Fluticasone/Umeclidin/Vilanter 100-62.5-25 Mcg Ellipta INHALATION 1 puff DAILYRT SALAZAR Administration Furosemide 40 mg 08/20/24 09:00 08/22/24 08:15 Furosemide 40 Mg Tablet PO 40 mg DAILY SALAZAR Administration Albumin Human 100 mls @ 60 mls/hr 08/22/24 18:00 08/22/24 17:39 Albutein IVPB 08/23/24 07:39 60 mls/hr Q6HR SALAZAR Administration Losartan Potassium 25 mg 08/20/24 09:00 08/22/24 08:15 Losartan Potassium 25 Mg Tablet PO 25 mg DAILY SALAZAR Administration Methocarbamol 750 mg 08/19/24 11:11 08/21/24 20:25 Methocarbamol 750 Mg Tablet PO 750 mg TID PRN Administration muscle spasm Metoprolol Succinate 25 mg 08/20/24 09:00 08/22/24 08:15 Metoprolol Succinate Ext Rel 25 Mg Tabcr PO 25 mg DAILY SALAZAR Administration Mirtazapine 15 mg 08/19/24 21:00 08/21/24 20:25 Mirtazapine 15 Mg Tablet BY MOUTH 15 mg HS SALAZAR Administration Ondansetron HCl 4 mg 08/20/24 08:16 08/20/24 08:52 Ondansetron Inj 4 Mg/2 Ml Vial IV PUSH 4 mg Q6H PRN Administration Nausea And Vomiting Pantoprazole Sodium 40 mg 08/19/24 21:00 08/22/24 08:15 Pantoprazole Sodium Iv 40 Mg Vial IV PUSH 40 mg Q12HR SALAZAR Administration Prednisone 20 mg 08/19/24 11:15 08/22/24 08:15 Prednisone 20 Mg Tablet BY MOUTH 20 mg DAILY SALAZAR Administration Sildenafil Citrate 40 mg 08/19/24 13:00 08/22/24 17:38 Sildenafil Citrate 20 Mg Tablet PO 40 mg TID SALAZAR Administration Spironolactone 25 mg 08/20/24 09:00 08/22/24 08:15 Spironolactone 25 Mg Tablet PO 25 mg DAILY SALAZAR Administration Radiology Results: ITS Impressions Abdomen/Pelvis CT 08/18/24 07:00 IMPRESSION: 1. Fluid throughout much of the colon consistent nonspecific diarrhea which could be due to gastroenteritis or reported gastrointestinal bleed. There are 5 small foci of high attenuation within the ascending colon which are similar in density to the contrast in the colon which could represent foci of active extravasation although the multiplicity and dependent distribution would favor high attenuation material within the fecal stream. 2. Mild diffuse gallbladder wall thickening with mild stranding near the fundus but without dilation to more specifically suggest acute cholecystitis. This coul d be due to decompressed state or potentially chronic cholecystitis. Correlate clinically for Arora sign and if indicated could consider further evaluation with either right upper quadrant ultrasound or HIDA scan. 3. 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 4. Extensive atherosclerotic disease with multifocal severe stenosis along the left external, superficial femoral and deep femoral arteries and at the right deep femoral artery with moderate stenosis at the right superficial femoral artery. 5. Numerous compression and burst fractures from T9 through L5 sparing L2 and several which appear relatively recent and new since 05/29/2024. Chest X-Ray 08/18/24 07:18 IMPRESSION: 1. Emphysema with stable appearance of atelectasis/scarring at the bilateral lower lung zones. Labs Labs: Laboratory Results - last 24 hr 08/22/24 08/22/24 05:42 16:33 WBC 11.3 H RBC 2.56 L Hgb 7.0 L 7.8 L Hct 23.8 L 26.5 L MCV 93.0 MCH 27.3 MCHC 29.4 L RDW 23.2 H Plt Count 114 L MPV 10.8 H Sodium 134 L Potassium 3.0 L Chloride 109 H Carbon Dioxide 22 Anion Gap 3 L BUN 31 H D Creatinine 0.89 Estim Creat Clear Calc 57 Estimated GFR > 60 Glucose 99 Calcium 7.3 L Total Bilirubin 0.8 AST 27 ALT 48 Alkaline Phosphatase 132 H Total Protein 4.0 L Albumin 2.0 L
[2024-08-22] MEDS: methocarbamoL 750 MG TABLET PO (21:04)
[2024-08-22] MEDS: MIRTAZAPINE 15 MG TABLET BY MOUTH (21:04)
[2024-08-23] VITALS (17 sets, daily range): BP systolic 92–133; BP diastolic 49–73; PULSE 54–90; RESP 16; TEMP 36.3–36.9; O2SAT 92–100
[2024-08-23] MEDS: ALBUMIN HUMAN 25% 25 GM/100 ML 100 ML IVPB (05:19)
[2024-08-23 05:32] LABS: Hematocrit 21.5 % (42.0-52.0); Mean Corpuscular HGB Conc 29.8 g/dl (32-36); Mean Corpuscular Hemoglobin 27.7 pg (26-34); Mean Corpuscular Volume 93.1 fl (80-100); Mean Platelet Volume 10.1 fl (7.4-10.4); Platelet Count Result 100 k/mm3 (150-375); Red Blood Count 2.31 M/mm3 (4.6-6.20); Red Cell Distribution Width 23.3 % (11.5-14.5); White Blood Count 8.7 K/mm3 (4.5-10.0)
[2024-08-23 05:37] LABS: Hemoglobin 6.4 g/dL (14.0-18.0)
[2024-08-23 05:49] LABS: Alanine Aminotransferase 39 U/L (6-50); Albumin Level 2.6 g/dL (3.5-5.1); Alkaline Phosphatase 122 U/L (38-126); Anion Gap 5 mmol/L (4-12); Aspartate Amino Transferase 25 U/L (17-59); Bilirubin,Total 1.2 mg/dL (0.2-1.3); Blood Urea Nitrogen 18 mg/dL (9-20); Calcium 7.5 mg/dL (8.4-10.2); Carbon Dioxide 22 mmol/L (22-30); Chloride 109 mmol/L (98-107); Estimated CRCL calculation 60 ml/min; Estimated Glomerular Filt Rate > 60; Glucose 89 mg/dL (65-110); Potassium 2.9 mmol/L (3.4-5.0); Sodium 136 mmol/L (137-145)
[2024-08-23] MEDS: POTASSIUM CHLORIDE 20 MEQ ER TABLET 40 MEQ PO (06:42)
[2024-08-23] MEDS: POTASSIUM CHLORIDE INJ 40 MEQ in SODIUM CHLORIDE 0.9% IV 500 ML 130 MEQ IVPB (06:42)
[2024-08-23] MEDS: FLUTICASONE/UMECLIDIN/VILANTER 100-62.5-25 MCG ELLIPTA 1 PUFF INHALATION (08:33)
--- NOTE | 2024-08-23 08:42 | PCOTNOTE ---
The patient treatment was not able to be completed. Patient is getting blood at this time. Will plan to continue treatment per plan of care.
[2024-08-23] MEDS: TUBING, BLOOD PLUM PUMP TUBING 1 EACH XX (08:47)
[2024-08-23] MEDS: CITALOPRAM HYDROBROMIDE 20 MG TABLET 40 MG PO (08:48)
[2024-08-23] MEDS: ATORVASTATIN 40 MG TABLET 80 MG PO (08:48)
[2024-08-23] MEDS: predniSONE 20 MG TABLET BY MOUTH (08:48)
[2024-08-23] MEDS: FERROUS SULFATE DRIED 142 MG TABCR PO ×2 (08:48→17:44)
[2024-08-23] MEDS: SILDENAFIL CITRATE 20 MG TABLET 40 MG PO ×3 (08:48→17:44)
[2024-08-23] MEDS: PANTOPRAZOLE SODIUM IV 40 MG VIAL IV PUSH (08:49)
[2024-08-23] MEDS: METOPROLOL SUCCINATE EXT REL 25 MG TABCR PO (09:38)
--- NOTE | 2024-08-23 11:02 | PCNFU ---
Nutrition Follow-Up Complete: Severe protein calorie malnutrition related to chronic loss of appetite as evidenced by weight loss 10%/6 months; intakes <75% needs >1 month; severe muscle wasting and fat loss Goal: Improve po intake to >50% meals and supplements Patient is meeting current goal. We will continue current goal. Pt current nutrition is Heart Healthy with Ensure Clear TID. Last recorded weight is 66 kg, no new weight to report. Bowel Motility: +BM reported 08/21 Labs Reviewed: Na 136, Alb 2.6, Hct 21.5, Hgb 6.4, K 2.9 Meds Noted: Lasix, Protonix,Remeron Skin: WNL Additional Notes: Patient remains on a heart healthy diet. Oral Intake has been > 75% of meals. Diet supplements continue of Ensure Clear TID providing an additional 240 kcal and 8 gm protein. Agree with diet orders. Monitoring intakes, weights, labs, supplement tolerance, plan of care Follow up in 5 days
[2024-08-23] MEDS: SODIUM CHLORIDE 0.9% IV 250 ML 30 ML IV CONT (11:10)
[2024-08-23 12:02] LABS: Hemoglobin 8.1 g/dL (14.0-18.0)
[2024-08-23] MEDS: FUROSEMIDE INJ 40 MG/4 ML VIAL 20 MG IV PUSH (13:13)
[2024-08-23 13:33] LABS: NT Pro B Type Natriuretic Pept 493 pg/mL (19.9-100)
--- NOTE | 2024-08-23 13:48 | P.PNIM_ITS ---
Progress Note: A&P Assessment and Plan (1) Hemorrhagic shock: Code(s): R57.8 - Other shock Status: Acute Assessment and Plan: Patient has hemorrhagic shock due to upper GI bleed. Gastroenterology has been consulted. Patient received IV push Protonix 40 mg x 1 in the ER. Will given additional 40 mg IV and then initiate Protonix drip. At the time documentation CT ABD showed Fluid throughout much of the colon consistent nonspecific diarrhea which could be due to gastroenteritis or reported gastrointestinal bleed. There are 5 small foci of high attenuation within the ascending colon which are similar in density to the contrast in the colon which could represent foci of active extravasation although the multiplicity and dependent distribution would favor high attenuation material within the fecal stream.. Patient's blood pressures after 1 L of fluid and 1.5 units of blood has improved to 97/58. GI was consulted and he was taken for EGD showed bleeding ulcer which was caut erized, patient did have shortness of breath after the procedure and repeat hgb was stable. Hgb post procedure 8.8 following day 08/22 dropped to 7.0 repeat H&H pending and still moderately hypotensive. Patient Hgb increased to 7.8 but then dropped to 6.4 within 12 hours transfused 1 unit PRBC F/U 8.1. Patient with no BM or bloody emesis reported no overt signs of continued GIB but if hgb continues to drop my need another EGD for re-evaluation. Previous HX of iron deficiency anemia consulted hematology at least to get established will likely need continued iron transfusions and possible blood transfusions outpatient * Monitor H&H * Protonix BID * Transfuse 1 unit PRBC if Hgb <7.0 * Still with hypotension holding Lasix and spironolactone until BP tolerates * added albumin IV (2) Acute upper gastrointestinal bleeding: Code(s): K92.2 - Gastrointestinal hemorrhage, unspecified Status: Acute Assessment and Plan: SEE Above (3) Acute blood loss anemia: Code(s): D62 - Acute posthemorrhagic anemia Status: Acute Assessment and Plan: SEE ABOVE (4) Chronic respiratory failure with hypoxia, on home oxygen therapy: Code(s): J96.11 - Chronic respiratory failure with hypoxia; Z99.81 - Dependence on s upplemental oxygen Status: Chronic Assessment and Plan: Patient wears 6L supplemental oxygen at home, emphysema * Albuterol inhaler as needed * Currently on his 6 L (5) Combined systolic and diastolic cardiac dysfunction: Code(s): I51.89 - Other ill-defined heart diseases Status: Acute Assessment and Plan: Patient has combined systolic and diastolic heart failure as well as reduced right-sided cardiac output with severe pulmonary hypertension. Will need to monitor fluid status closely given these multiple factors. Currently patient is stable on his home O2. reported SOB, CXR with small pleural effusions mildly elevated BNP a single dose IV Lasix 20 mg IV push * Resume Lasix when BP tolerates * Continuous cardiac monitoring (6) Protein-calorie malnutrition, moderate: Code(s): E44.0 - Moderate protein-calorie malnutrition Status: Acute Assessment and Plan: Patient does have significant protein calorie malnutrition with low serum albumin. * added albumin * add Protein shakes with each meal (7) Hypokalemia: Code(s): E87.6 - Hypokalemia Status: Acute Assessment and Plan: Potassium 2.9 08/23 * 80meq replenished * keep K+ >4.0 * cardiac monitoring (8) Leukocytosis: Qualifiers: Leukocytosis type: leukemoid reaction Qualified Code(s): D72.823 - Leukemoid reaction Code(s): D72.829 - Elevated white blood cell count, unspecified Status: Resolved Assessment and Plan: Patient does have marked leukocytosis suspected to be due leukemoid reaction. No signs of infectious cause * Daily CBC resolving Plan Code status: Full code per patient DVT prophylaxis: Lovenox Stress ulcer prophylaxis: Protonix 40 daily PT/OT notes: PT/OT evaluation pending Disposition: Patient continues admission post hemorrhagic shock upper GI bleed have large ulcer cauterized and injected with epi wanting to continue to monitor H&H. PT/OT has been ordered for further evaluation and CC consulted plan is for discharge show rehab/SNF. Time Spent With Patient Time with patient: 15 - 25 minutes Subjective Date/time seen: 08/23/24 13:48 Interval history: patient is a 79-year-old male who was admitted for further evaluation treatment of with anemia and concern for upper GI bleed, resulting in hypotension, causing him to have hemorrhagic shock patient was given fluids, 1 unit of PRBC started on Protonix IV drip, seen by GI and had EGD which showed bleeding ulcer which was cauterized, patient did have shortness of breath after the procedure and repeat hgb is stable. 08/23/2024: Patient reporting SOB worse with exertion today and with worsening weakness. HGB did drop and he was transfused 1 unit PRBC. He denied CP but did have back shahid with mid cough. Review of Systems Review of Systems: 12 systems were reviewed with pertinent positives and negatives per HPI. Except as documented in the HPI, all other systems were reviewed and are negative. All systems reviewed & are unremarkable except as noted in HPI and below Exam Narrative: Patient is comfortable, NAD HEENT: eyes are clear and none icteric LUNGS:CTA HEART: RR S1S2 ABD: BS+, Soft and nontender Lower extremities: no edema SKIN: nonjaundiced Neuro: grossly intact. Objective Data Vital Signs Vital Signs: Vital Signs - 24 hr 08/22/24 14:00 08/22/24 14:47 08/22/24 16:00 Temperature 98.2 F Pulse Rate 65 68 Respiratory Rate 18 Blood Pressure 86/49 L Pulse Oximetry 100 Oxygen Delivery Nasal Cannula Oxygen Flow Rate 6 08/22/24 20:00 08/22/24 20:00 08/22/24 21:02 Temperature Pulse Rate 68 Respiratory Rate Blood Pressure Pulse Oximetry 93 93 Oxygen Delivery Nasal Cannula High Flow Nasal Cannula Oxygen Flow Rate 6 6 08/22/24 21:18 08/23/24 00:00 08/23/24 04:00 Temperature 97.6 F Pulse Rate 62 64 56 L Respiratory Rate 16 Blood Pressure 96/42 L Pulse Oximetry 93 Oxygen Delivery Oxygen Flow Rate 08/23/24 06:00 08/23/24 07:56 08/23/24 07:59 Temperature 97.8 F 97.7 F Pulse Rate 69 58 L Respiratory Rate 16 16 Blood Pressure 95/52 L 94/55 L Pulse Oximetry 94 100 100 Oxygen Delivery Nasal Cannula Oxygen Flow Rate 6 08/23/24 08:05 08/23/24 08:12 08/23/24 08:33 Temperature 98.2 F Pulse Rate 59 L 56 L Respiratory Rate 16 Blood Pressure 95/61 L Pulse Oximetry 97 92 Oxygen Delivery Nasal Cannula Oxygen Flow Rate 6 08/23/24 09:12 08/23/24 09:38 08/23/24 10:12 Temperature 97.3 F L 97.5 F L Pulse Rate 65 74 68 Respiratory Rate 16 16 Blood Pressure 133/73 115/57 L Pulse Oximetry 95 94 Oxygen Delivery Oxygen Flow Rate 08/23/24 11:10 08/23/24 12:00 Temperature 98.2 F Pulse Rate 66 Respiratory Rate 16 Blood Pressure 92/52 L Pulse Oximetry 98 Oxygen Delivery Nasal Cannula Oxygen Flow Rate 6 Intake/Output Intake/Output: Intake & Output 08/20/24 08/21/24 08/22/24 08/23/24 23:59 23:59 23:59 23:59 Intake Total 880 2668 891 2184 Output Total 550 8635 113 4123 Balance 330 -560 220 -203 Meds/Results Medications: Active Medications Generic Name Dose Route Start Last Admin Trade Name Freq PRN Reason Stop Dose Admin Hydrocodone Bitart/Acetaminophen 1 tab 08/19/24 20:00 08/21/24 20:25 Hydrocodone/Acetaminophen (*Crx) 10-325 Mg Tablet PO 1 tab Q8HR PRN Administration pain Albuterol 1 puff 08/19/24 11:11 Albuterol Sulfate (*Sp) Aerosol 1 Puff INHALATION QID PRN shortness of breath or wheezing Albuterol/Ipratropium 3 ml 08/19/24 11:11 Ipratropium 0.5 Mg/Albuterol Sulfate 2.5 Mg Ampul.Neb 3 Ml INHALATION QID PRN shortness of breath Atorvastatin Calcium 80 mg 08/20/24 09:00 08/23/24 08:48 Atorvastatin 40 Mg Tablet PO 80 mg DAILY SALAZAR Administration Citalopram Hydrobromide 40 mg 08/20/24 09:00 08/23/24 08:48 Citalopram Hydrobromide 20 Mg Tablet PO 40 mg DAILY SALAZAR Administration Ferrous Sulfate 142 mg 08/19/24 17:00 08/23/24 08:48 Ferrous Sulfate Dried 142 Mg Tabcr PO 142 mg BID SALAZAR Administration Fluticasone/Umeclidinium/Vilanterol 1 puff 08/20/24 08:00 08/23/24 08:33 Fluticasone/Umeclidin/Vilanter 100-62.5-25 Mcg Ellipta INHALATION 1 puff DAILYRT SALAZAR Administration Furosemide 40 mg 08/20/24 09:00 08/22/24 08:15 Furosemide 40 Mg Tablet PO 40 mg DAILY SALAZAR Administration Sodium Chloride 250 mls @ 30 mls/hr 08/23/24 06:12 Normal Saline Iv IV CONT 08/23/24 14:31 .Q8H20M STA Potassium Chloride 40 meq/ 520 mls @ 130 mls/hr 08/23/24 13:30 Sodium Chloride IVPB 08/23/24 17:29 ONCE ONE Losartan Potassium 25 mg 08/20/24 09:00 08/22/24 08:15 Losartan Potassium 25 Mg Tablet PO 25 mg DAILY SALAZAR Administration Methocarbamol 750 mg 08/19/24 11:11 08/22/24 21:04 Methocarbamol 750 Mg Tablet PO 750 mg TID PRN Administration muscle spasm Metoprolol Succinate 25 mg 08/20/24 09:00 08/23/24 09:38 Metoprolol Succinate Ext Rel 25 Mg Tabcr PO 25 mg DAILY SALAZAR Administration Mirtazapine 15 mg 08/19/24 21:00 08/22/24 21:04 Mirtazapine 15 Mg Tablet BY MOUTH 15 mg HS SALAZAR Administration Ondansetron HCl 4 mg 08/20/24 08:16 08/20/24 08:52 Ondansetron Inj 4 Mg/2 Ml Vial IV PUSH 4 mg Q6H PRN Administration Nausea And Vomiting Pantoprazole Sodium 40 mg 08/19/24 21:00 08/23/24 08:49 Pantoprazole Sodium Iv 40 Mg Vial IV PUSH 40 mg Q12HR SALAZAR Administration Potassium Chloride 40 meq 08/23/24 13:30 Potassium Chloride 20 Meq Packet (For Liquid) PO 08/23/24 13:31 ONCE ONE Prednisone 20 mg 08/19/24 11:15 08/23/24 08:48 Prednisone 20 Mg Tablet BY MOUTH 20 mg DAILY SALAZAR Administration Sildenafil Citrate 40 mg 08/19/24 13:00 08/23/24 13:13 Sildenafil Citrate 20 Mg Tablet PO 40 mg TID SALAZAR Administration Spironolactone 25 mg 08/20/24 09:00 08/22/24 08:15 Spironolactone 25 Mg Tablet PO 25 mg DAILY SALAZAR Administration Radiology Results: ITS Impressions Abdomen/Pelvis CT 08/18/24 07:00 IMPRESSION: 1. Fluid throughout much of the colon consistent nonspecific diarrhea which could be due to gastroenteritis or reported gastrointestinal bleed. There are 5 small foci of high attenuation within the ascending colon which are similar in density to the contrast in the colon which could represent foci of active extravasation although the multiplicity and dependent distribution would favor high attenuation material within the fecal stream. 2. Mild diffuse gallbladder wall thickening with mild stranding near the fundus but without dilation to more specifically suggest acute cholecystitis. This could be due to decompressed state or potentially chronic cholecystitis. Correlate clinically for Arora sign and if indicated could consider further evaluation with either right upper quadrant ultrasound or HIDA scan. 3. 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 4. Extensive atherosclerotic disease with multifocal severe stenosis along the left external, superficial femoral and deep femoral arteries and at the right deep femoral artery with moderate stenosis at the right superficial femoral artery. 5. Numerous compression and burst fractures from T9 through L5 sparing L2 and several which appear relatively recent and new since 05/29/2024. Chest X-Ray 08/23/24 13:31 Impression: Small right pleural effusion with probable bibasilar pulmonary edema/atelectasis. Correlate clinically for pneumonia. Labs Labs: Laboratory Results - last 24 hr 08/21/24 08/22/24 08/23/24 06:27 16:33 05:14 WBC RBC Hgb 7.8 L Hct 26.5 L MCV MCH MCHC RDW Plt Count MPV Sodium Potassium Chloride Carbon Dioxide Anion Gap BUN Creatinine Estim Creat Clear Calc Estimated GFR Glucose Calcium Magnesium 2.0 Total Bilirubin AST ALT Alkaline Phosphatase NT-Pro-B Natriuret Pep 493 H Total Protein Albumin Blood Type O Positive Antibody Screen Negative Crossmatch See Detail 08/23/24 08/23/24 05:16 11:58 WBC 8.7 RBC 2.31 L Hgb 6.4 L* 8.1 L Hct 21.5 L 27.0 L MCV 93.1 MCH 27.7 MCHC 29.8 L RDW 23.3 H Plt Count 100 L MPV 10.1 Sodium 136 L Potassium 2.9 L Chloride 109 H Carbon Dioxide 22 Anion Gap 5 BUN 18 D Creatinine 0.84 Estim Creat Clear Calc 60 Estimated GFR > 60 Glucose 89 Calcium 7.5 L Magnesium Total Bilirubin 1.2 AST 25 ALT 39 Alkaline Phosphatase 122 NT-Pro-B Natriuret Pep Total Protein 4.0 L Albumin 2.6 L Blood Type Antibody Screen Crossmatch Quality VTE Prophylaxis VTE prophylaxis: mechanical ordered (SCDs) -Patient's previous records reviewed on admission -ER notes reviewed in detail on admission -discussed all findings and current treatment plan with patient/Family/POA -Consultations reviewed for recommendations -Patient's disposition for safe discharge discussed with child welfare caseworker Dictation performed by [employer] direct speech recognition software, therefore analytical chemistry teacher variants and typographical errors may occur. Hospitalist MIPS Advance Care Plan I have confirmed that the patient's Advanced Care Plan is present, code status is documented, or surrogate decision maker is listed in patient medical record.: Yes Medication Reconciliation I have utilized all available resources to obtain, update and review the patients current medications (includes all prescriptions, OTC, herbals, cannabis, and nutritional supplements).: Yes The patient is not eligible for med reconciliation; the patient is in a emergent medical situation where delaying treatment would jeopardize the patients health.: No
[2024-08-23] MEDS: POTASSIUM CHLORIDE 20 MEQ PACKET (FOR LIQUID) 40 MEQ PO (14:41)
--- NOTE | 2024-08-23 16:33 | P.PNGI_ITS ---
Progress Note: A&P Assessment and Plan (1) Hematemesis: Code(s): K92.0 - Hematemesis Status: Acute Assessment and Plan: from large gastric ulcer no overt gi bleeding but hgb down- transfuse one more unit keep hgb>7 on protonix twice daily, also iron may need follow-up with curing press maintainer h pylori negative repeat egd in 3-4 months to assess healing tolerating diet diet will follow as needed (2) Gastric ulcer: Code(s): K25.9 - Gastric ulcer, unspecified as acute or chronic, without hemorrhage or perforation Status: Acute Assessment and Plan: treated protonix (3) Acute blood loss anemia: Code(s): D62 - Acute posthemorrhagic anemia Status: Acute Assessment and Plan: monitor for more signs of bleeding (4) Combined systolic and diastolic cardiac dysfunction: Code(s): I51.89 - Other ill-defined heart diseases Status: Acute Subjective Date/time seen: 08/23/24 16:33 Interval history: he just feels tired, he is eating no overt gib however hgb dropped and given one unit prbc Review of Systems Review of Systems: All systems reviewed & are unremarkable except as noted in HPI and below Exam Const: General: comfortable HENMT: Face/Nose/Sinus: Normal nares present Eyes: General: appearance normal, both eyes and all related structures Neck: Neck: supple Resp: Auscultation: clear to auscultation bilaterally Cardio: Rate: regular rate Rhythm: regular rhythm GI: Inspection: non-distended GI Palp: Yes Soft to palpation and No Tenderness to palpation present (GI) Skin: Other: pallor Neuro: Speech: normal speech Extrem: General: normal to inspection Psych: Mental Status: mental status grossly normal Objective Data Vital Signs Vital Signs: Vital Signs - 24 hr 08/22/24 20:00 08/22/24 20:00 08/22/24 21:02 Temperature Pulse Rate 68 Respiratory Rate Blood Pressure Pulse Oximetry 93 93 Oxygen Delivery Nasal Cannula High Flow Nasal Cannula Oxygen Flow Rate 6 6 08/22/24 21:18 08/23/24 00:00 08/23/24 04:00 Temperature 97.6 F Pulse Rate 62 64 56 L Respiratory Rate 16 Blood Pressure 96/42 L Pulse Oximetry 93 Oxygen Delivery Oxygen Flow Rate 08/23/24 06:00 08/23/24 07:56 08/23/24 07:59 Temperature 97.8 F 97.7 F Pulse Rate 69 58 L Respiratory Rate 16 16 Blood Pressure 95/52 L 94/55 L Pulse Oximetry 94 100 100 Oxygen Delivery Nasal Cannula Oxygen Flow Rate 6 08/23/24 08:05 08/23/24 08:12 08/23/24 08:33 Temperature 98.2 F Pulse Rate 59 L 56 L Respiratory Rate 16 Blood Pressure 95/61 L Pulse Oximetry 97 92 Oxygen Delivery Nasal Cannula Oxygen Flow Rate 6 08/23/24 09:12 08/23/24 09:38 08/23/24 10:12 Temperature 97.3 F L 97.5 F L Pulse Rate 65 74 68 Respiratory Rate 16 16 Blood Pressure 133/73 115/57 L Pulse Oximetry 95 94 Oxygen Delivery Oxygen Flow Rate 08/23/24 11:10 08/23/24 12:00 08/23/24 12:05 Temperature 98.2 F Pulse Rate 66 86 Respiratory Rate 16 Blood Pressure 92/52 L Pulse Oximetry 98 Oxygen Delivery Nasal Cannula Oxygen Flow Rate 6 08/23/24 14:00 Temperature 98.2 F Pulse Rate 66 Respiratory Rate 16 Blood Pressure 92/52 L Pulse Oximetry 98 Oxygen Delivery Oxygen Flow Rate Intake/Output Intake/Output: Intake & Output 08/20/24 08/21/24 08/22/24 08/23/24 23:59 23:59 23:59 23:59 Intake Total 880 1340 1490 1667 Output Total 550 5680 026 0801 Balance 330 -560 740 -1183 Meds/Results Medications: Active Medications Generic Name Dose Route Start Last Admin Trade Name Freq PRN Reason Stop Dose Admin Hydrocodone Bitart/Acetaminophen 1 tab 08/19/24 20:00 08/21/24 20:25 Hydrocodone/Acetaminophen (*Crx) 10-325 Mg Tablet PO 1 tab Q8HR PRN Administration pain Albuterol 1 puff 08/19/24 11:11 Albuterol Sulfate (*Sp) Aerosol 1 Puff INHALATION QID PRN shortness of breath or wheezing Albuterol/Ipratropium 3 ml 08/19/24 11:11 Ipratropium 0.5 Mg/Albuterol Sulfate 2.5 Mg Ampul.Neb 3 Ml INHALATION QID PRN shortness of breath Atorvastatin Calcium 80 mg 08/20/24 09:00 08/23/24 08:48 Atorvastatin 40 Mg Tablet PO 80 mg DAILY SALAZAR Administration Citalopram Hydrobromide 40 mg 08/20/24 09:00 08/23/24 08:48 Citalopram Hydrobromide 20 Mg Tablet PO 40 mg DAILY SALAZAR Administration Ferrous Sulfate 142 mg 08/19/24 17:00 08/23/24 08:48 Ferrous Sulfate Dried 142 Mg Tabcr PO 142 mg BID SALAZAR Administration Fluticasone/Umeclidinium/Vilanterol 1 puff 08/20/24 08:00 08/23/24 08:33 Fluticasone/Umeclidin/Vilanter 100-62.5-25 Mcg Ellipta INHALATION 1 puff DAILYRT SALAZAR Administration Furosemide 40 mg 08/20/24 09:00 08/22/24 08:15 Furosemide 40 Mg Tablet PO 40 mg DAILY SALAZAR Administration Losartan Potassium 25 mg 08/20/24 09:00 08/22/24 08:15 Losartan Potassium 25 Mg Tablet PO 25 mg DAILY SALAZAR Administration Methocarbamol 750 mg 08/19/24 11:11 08/22/24 21:04 Methocarbamol 750 Mg Tablet PO 750 mg TID PRN Administration muscle spasm Metoprolol Succinate 25 mg 08/20/24 09:00 08/23/24 09:38 Metoprolol Succinate Ext Rel 25 Mg Tabcr PO 25 mg DAILY SALAZAR Administration Mirtazapine 15 mg 08/19/24 21:00 08/22/24 21:04 Mirtazapine 15 Mg Tablet BY MOUTH 15 mg HS SALAZAR Administration Ondansetron HCl 4 mg 08/20/24 08:16 08/20/24 08:52 Ondansetron Inj 4 Mg/2 Ml Vial IV PUSH 4 mg Q6H PRN Administration Nausea And Vomiting Pantoprazole Sodium 40 mg 08/19/24 21:00 08/23/24 08:49 Pantoprazole Sodium Iv 40 Mg Vial IV PUSH 40 mg Q12HR SALAZAR Administration Prednisone 20 mg 08/19/24 11:15 08/23/24 08:48 Prednisone 20 Mg Tablet BY MOUTH 20 mg DAILY SALAZAR Administration Sildenafil Citrate 40 mg 08/19/24 13:00 08/23/24 13:13 Sildenafil Citrate 20 Mg Tablet PO 40 mg TID SALAZAR Administration Spironolactone 25 mg 08/20/24 09:00 08/22/24 08:15 Spironolactone 25 Mg Tablet PO 25 mg DAILY SALAZAR Administration Radiology Results: ITS Impressions Abdomen/Pelvis CT 08/18/24 07:00 IMPRESSION: 1. Fluid throughout much of the colon consistent nonspecific diarrhea which could be due to gastroenteritis or reported gastrointestinal bleed. There are 5 small foci of high attenuation within the ascending colon which are similar in density to the contrast in the colon which could represent foci of active extravasation although the multiplicity and dependent distribution would favor high attenuation material within the fecal stream. 2. Mild diffuse gallbladder wall thickening with mild stranding near the fundus but without dilation to more specifically suggest acute cholecystitis. This could be due to decompressed state or potentially chronic cholecystitis. Correlate clinically for Arora sign and if indicated could consider further evaluation with either right upper quadrant ultrasound or HIDA scan. 3. 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 4. Extensive atherosclerotic disease with multifocal severe stenosis along the left external, superficial femoral and deep femoral arteries and at the right deep femoral artery with moderate stenosis at the right superficial femoral a rtery. 5. Numerous compression and burst fractures from T9 through L5 sparing L2 and several which appear relatively recent and new since 05/29/2024. Chest X-Ray 08/23/24 13:31 Impression: Small right pleural effusion with probable bibasilar pulmonary edema/atelectasis. Correlate clinically for pneumonia. Labs Labs: Laboratory Results - last 24 hr 08/21/24 08/22/24 08/23/24 06:27 16:33 05:14 WBC RBC Hgb 7.8 L Hct 26.5 L MCV MCH MCHC RDW Plt Count MPV Sodium Potassium Chloride Carbon Dioxide Anion Gap BUN Creatinine Estim Creat Clear Calc Estimated GFR Glucose Calcium Magnesium 2.0 Total Bilirubin AST ALT Alkaline Phosphatase NT-Pro-B Natriuret Pep 493 H Total Protein Albumin Blood Type O Positive Antibody Screen Negative Crossmatch See Detail 08/23/24 08/23/24 05:16 11:58 WBC 8.7 RBC 2.31 L Hgb 6.4 L* 8.1 L Hct 21.5 L 27.0 L MCV 93.1 MCH 27.7 MCHC 29.8 L RDW 23.3 H Plt Count 100 L MPV 10.1 Sodium 136 L Potassium 2.9 L Chloride 109 H Carbon Dioxide 22 Anion Gap 5 BUN 18 D Creatinine 0.84 Estim Creat Clear Calc 60 Estimated GFR > 60 Glucose 89 Calcium 7.5 L Magnesium Total Bilirubin 1.2 AST 25 ALT 39 Alkaline Phosphatase 122 NT-Pro-B Natriuret Pep Total Protein 4.0 L Albumin 2.6 L Blood Type Antibody Screen Crossmatch
[2024-08-23 18:49] LABS: Hemoglobin 8.7 g/dL (14.0-18.0)
--- NOTE | 2024-08-23 19:19 | P.CONONC_ITS ---
Assessment and Plan Assessment and plan (1) Acute on chronic anemia: Code(s): D64.9 - Anemia, unspecified Status: Acute Assessment and Plan: Patient with acute on chronic anemia due to GI bleeding. EGD has shown a large ulcer in stomach incisura. He underwent cauterization and epinephrine injection to the ulcer. He is also on IV Protonix. Patient has been started on oral iron here in during this hospitalization. Hematology advise against doing oral iron because it can irritate the ulcer. Recommend to the hospitalist team to discontinue the oral iron at this time and consider 1 g of IV iron while he is hospitalized. I believe his anemia is still likely due to slowly oozing GI ulcer and will take some time to attain hemostasis. Please support with IV Iron 1g Iron dextran or any other iron formulation available. Support with PRBC transfusions as needed. Thrombocytopenia- Additionally noted is thrombocytopenia since admission. Patient presented with a platelet count of 302 K and over the course of last few days platelets has been slowly decreasing and today platelet count is 100 K. I am unsure of the etiology as patient is not on any agents that will decrease the platelets including heparin. Continue to monitor platelets there is no need for any intervention at this time HPI Data of Consult Date/Time: 08/23/24 19:19 Requesting Physician: Pelon Moura MD Primary Care Provider: Yusuf Quintanilla MD Consult Narrative Narrative: Constantine Ko is a 79 year old male who presented to ER on 08/18/2024 for bright red emesis and dark stools. Admission CBC on 08/18/2024 showed a hemoglobin of 6.9. He underwent EGD on 08/20/2024 showing a single deep ulcer with clot in gastric incisura. It was cauterized and injected with epinephrine and patient was started on IV Protonix. However since then patient has dropped his hemoglobin again on 08/21/2024 with a hemoglobin of 6.6 needing blood transfusion and again today 08/23/2024 but hemoglobin is 6.4 and needing another blood transfusion. Patient denies any episodes hematemesis or hematochezia since admission. Patient has been started on oral iron ferrous sulfate(slow fe) 142 mg b.i.d. Hematology is consulted for anemia. Also noted is thrombocytopenia since admission with downtrending platelet count and today 08/23/2024. Platelet count is 100 K. patient's platelets at admission was 302 K. Review of Systems 2 Review of Systems: Patient reports that he is very weak and is unable to get out of the bed without assistance and is anticipating rehab before he goes home. States that he has COPD which also restricts his mobility. States that he is very cold all the time. He denies any chest pain but has exertional shortness of breath. He denies any fever, chills, night sweats. No abdominal pain. No diarrhea. Since admission he also denies any hematemesis, hematochezia, melena. Rest of 12 point review of system is negative. [facility] Past Medical History Medical History (Updated 08/23/24 @ 13:56 by Niecy Cosme, HOME WORKER) Gastric ulcer Acute on chronic anemia Hematemesis Central sleep apnea Lumbar stenosis with neurogenic claudication Lumbar radiculopathy Neuropathy Chronic respiratory failure with hypoxia, on home oxygen therapy Combined systolic and diastolic cardiac dysfunction Severe pulmonary hypertension Right ventricular systolic dysfunction Obstructive sleep apnea Intolerant to CPAP. Benign essential hypertension Erectile dysfunction Hypogonadism Solitary pulmonary nodule Atherosclerosis of aorta Generalized anxiety disorder Raynaud's syndrome without gangrene Hypertension Hypothyroidism Hyperlipidemia Depression Emphysema lung Coronary artery disease Surgical History Surgical History History of three vessel coronary artery bypass History of cardiac cath Family History Family History Father Hypertension Alcoholism Social History Social History Social History: Surrogate medical decision maker: Constantine Ko Jr., son. Code status: DNR/DNI Smoking packs per day: 1 Smoking cigarettes per day: 20.0 Years smoked: 40 Smoking pack-years: 40.00 Smoking status: Former smoker Tobacco type: cigarettes Smoking end date: 10/20/04 Alcohol intake: never Drinks per week: 1 Substance use: never Substance use type: does not use Do You Feel Safe in your Home?: Yes Lack of Transportation: No Lack of Food: Never True Current Housing: I Have Housing Concerned About Future Housing: No Difficulty Paying Gas/Electric Bills: No Difficulty Paying for Meds: No Currently Unemployed: No Education: Decline to Answer Difficulty w/ Childcare or Family Care: No Living arrangements: with family Additional living arrangements comments: Lives with spouse in [place]. Occupation/Education: retired Spiritual care concerns: No Meds Home Medications and Allergies Home Medications ?Medication ?Instructions ?Recorded ?Confirmed ?Type aspirin 81 mg chewable tablet 81 mg PO DAILY 04/22/20 08/19/24 History lisinopril 20 mg tablet 10 mg PO DAILY 06/28/22 08/19/24 History nebulizers #1 ea 07/08/22 08/19/24 Rx ipratropium 0.5 mg-albuterol 3 mg 3 ml inhalation QID PRN shortness 07/13/22 08/19/24 Rx (2.5 mg base)/3 mL nebulization of breath #180 mL soln macitentan 10 mg tablet (Opsumit) 10 mg PO DAILY 01/14/23 08/19/24 History albuterol sulfate 90 mcg/actuation 1 inh inhalation QID PRN shortness 05/30/23 08/19/24 Rx aerosol inhaler of breath or wheezing #8.5 grams furosemide 40 mg tablet 40 mg PO DAILY #90 tabs 12/19/23 08/19/24 Rx Breztri Aerosphere 160 2 inh inhalation BID #10.7 grams 03/26/24 08/19/24 Rx mcg-9mcg-4.8mcg/actuation HFA aerosol inhaler (votydsxbxc-tvsbnaor-dxkgftopab) citalopram 20 mg tablet 40 mg (2 x 20 mg) PO DAILY #180 03/26/24 08/19/24 Rx tabs azithromycin 500 mg tablet 500 mg PO .three times per week 90 04/23/24 08/19/24 Rx days #36 tabs methocarbamol 750 mg tablet 750 mg PO TID PRN muscle spasm #30 05/25/24 08/19/24 Rx tabs prednisone 20 mg tablet See Rx Instructions .Route 07/05/24 08/19/24 Rx .COMPLEX #30 tabs spironolactone 25 mg tablet 25 mg PO DAILY #90 tabs 07/05/24 08/19/24 Rx atorvastatin 80 mg tablet 80 mg PO DAILY #90 tabs 08/06/24 08/19/24 Rx mirtazapine 15 mg tablet See Rx Instructions .Route 08/06/24 08/19/24 Rx .COMPLEX #90 tabs ferrous sulfate 137 mg (45 mg 137 mg PO BID 08/19/24 08/19/24 History iron) tablet,extended release (Slow Fe) hydrocodone 10 mg-acetaminophen 1 tablet PO BID PRN pain 08/19/24 08/19/24 History 325 mg tablet losartan 25 mg tablet 25 mg PO DAILY 08/19/24 08/19/24 History metoprolol succinate 25 mg 25 mg PO DAILY 08/19/24 08/19/24 History tablet,extended release 24 hr potassium chloride 20 mEq 20 meq PO BID 08/19/24 08/19/24 History tablet,extended release (K-Tab) sildenafil (pulm.hypertension) 20 40 mg PO TID 08/19/24 08/19/24 History mg tablet pantoprazole 40 mg tablet,delayed 40 mg PO BID #60 tabs 08/23/24 Rx release Allergies Allergy/AdvReac Type Severity Reaction Status Date / Time crab Allergy Intermediate Hives Verified 08/20/24 14:37 tiotropium (From Spiriva Allergy Mild Dizziness Verified 08/20/24 14:37 with HandiHaler) Vital Signs Vital Signs - 24 hr 08/22/24 20:00 08/22/24 20:00 08/22/24 21:02 Temperature Pulse Rate 68 Respiratory Rate Blood Pressure Pulse Oximetry 93 93 Oxygen Delivery Nasal Cannula High Flow Nasal Cannula Oxygen Flow Rate 6 6 08/22/24 21:18 08/23/24 00:00 08/23/24 04:00 Temperature 36.4 C Pulse Rate 62 64 56 L Respiratory Rate 16 Blood Pressure 96/42 L Pulse Oximetry 93 Oxygen Delivery Oxygen Flow Rate 08/23/24 06:00 08/23/24 07:56 08/23/24 07:59 Temperature 36.6 C 36.5 C Pulse Rate 69 58 L Respiratory Rate 16 16 Blood Pressure 95/52 L 94/55 L Pulse Oximetry 94 100 100 Oxygen Delivery Nasal Cannula Oxygen Flow Rate 6 08/23/24 08:05 08/23/24 08:12 08/23/24 08:33 Temperature 36.8 C Pulse Rate 59 L 56 L Respiratory Rate 16 Blood Pressure 95/61 L Pulse Oximetry 97 92 Oxygen Delivery Nasal Cannula Oxygen Flow Rate 6 08/23/24 09:12 08/23/24 09:38 08/23/24 10:12 Temperature 36.3 C L 36.4 C L Pulse Rate 65 74 68 Respiratory Rate 16 16 Blood Pressure 133/73 115/57 L Pulse Oximetry 95 94 Oxygen Delivery Oxygen Flow Rate 08/23/24 11:10 08/23/24 12:00 08/23/24 12:05 Temperature 36.8 C Pulse Rate 66 86 Respiratory Rate 16 Blood Pressure 92/52 L Pulse Oximetry 98 Oxygen Delivery Nasal Cannula Oxygen Flow Rate 6 08/23/24 14:00 08/23/24 16:04 Temperature 36.8 C Pulse Rate 66 90 Respiratory Rate 16 Blood Pressure 92/52 L Pulse Oximetry 98 Oxygen Delivery Oxygen Flow Rate Exam 2 Narrative: Alert and oriented x3 very pleasant male in no acute distress ill-appearing. HEENT: eyes are clear and none icteric LUNGS:CTAB HEART: RR S1S2 ABD: BS+, Soft and nontender Lower extremities: no edema SKIN: nonjaundiced Neuro: grossly intact. Results Labs 08/23/24 18:41 08/23/24 05:16 Labs: Short CBC 08/23/24 08/23/24 08/23/24 Range/Units 05:16 11:58 18:41 WBC 8.7 (4.5-10.0) K/mm3 Hgb 6.4 L* 8.1 L 8.7 L (14.0-18.0) g/dL Hct 21.5 L 27.0 L 28.0 L (42.0-52.0) % Plt Count 100 L (150-375) k/mm3 BMP 08/23/24 05:16 Sodium 136 L Potassium 2.9 L Chloride 109 H Carbon Dioxide 22 BUN 18 D Creatinine 0.84 Glucose 89 Calcium 7.5 L Liver Function 08/23/24 Range/Units 05:16 Total Bilirubin 1.2 (0.2-1.3) mg/dL AST 25 (17-59) U/L ALT 39 (6-50) U/L Alkaline Phosphatase 122 (38-126) U/L Albumin 2.6 L (3.5-5.1) g/dL
[2024-08-23] MEDS: PANTOPRAZOLE 40 MG TABLET PO (22:14)
[2024-08-23] MEDS: MIRTAZAPINE 15 MG TABLET BY MOUTH (22:15)
[2024-08-24] VITALS (13 sets, daily range): BP systolic 100–153; BP diastolic 51–71; PULSE 60–81; RESP 16–22; TEMP 36.1–36.6; O2SAT 92–96
[2024-08-24 06:02] LABS: Hematocrit 29.6 % (42.0-52.0); Hemoglobin 8.8 g/dL (14.0-18.0); Mean Corpuscular HGB Conc 29.7 g/dl (32-36); Mean Corpuscular Volume 94.3 fl (80-100); Mean Platelet Volume 10.4 fl (7.4-10.4); Platelet Count Result 115 k/mm3 (150-375); Red Blood Count 3.14 M/mm3 (4.6-6.20); Red Cell Distribution Width 22.7 % (11.5-14.5); White Blood Count 8.6 K/mm3 (4.5-10.0)
[2024-08-24 06:04] LABS: Alanine Aminotransferase 48 U/L (6-50); Albumin Level 3.1 g/dL (3.5-5.1); Alkaline Phosphatase 130 U/L (38-126); Anion Gap 6 mmol/L (4-12); Aspartate Amino Transferase 33 U/L (17-59); Bilirubin,Total 1.5 mg/dL (0.2-1.3); Blood Urea Nitrogen 14 mg/dL (9-20); Calcium 8.2 mg/dL (8.4-10.2); Carbon Dioxide 24 mmol/L (22-30); Chloride 108 mmol/L (98-107); Estimated CRCL calculation 61 ml/min; Estimated Glomerular Filt Rate > 60; Glucose 102 mg/dL (65-110); Potassium 3.4 mmol/L (3.4-5.0); Sodium 138 mmol/L (137-145)
[2024-08-24] MEDS: FLUTICASONE/UMECLIDIN/VILANTER 100-62.5-25 MCG ELLIPTA 1 PUFF INHALATION (08:39)
[2024-08-24] MEDS: ATORVASTATIN 40 MG TABLET 80 MG PO (10:22)
[2024-08-24] MEDS: predniSONE 20 MG TABLET BY MOUTH (10:22)
[2024-08-24] MEDS: CITALOPRAM HYDROBROMIDE 20 MG TABLET 40 MG PO (10:22)
[2024-08-24] MEDS: SILDENAFIL CITRATE 20 MG TABLET 40 MG PO ×3 (10:22→17:21)
[2024-08-24] MEDS: METOPROLOL SUCCINATE EXT REL 25 MG TABCR PO (10:23)
[2024-08-24] MEDS: IRON SUCROSE COMPLEX 400 MG, IRON SUCROSE COMPLEX 100 MG in SODIUM CHLORIDE 0.9% IV 250 ML 78.57 MG IVPB (10:23)
[2024-08-24] MEDS: PANTOPRAZOLE 40 MG TABLET PO ×2 (10:23→21:17)
[2024-08-24] MEDS: HYDROcodone/acetaminophen (*CRX) 10-325 MG TABLET 1 TAB PO (10:25)
--- NOTE | 2024-08-24 11:06 | P.PNIM_ITS ---
Progress Note: A&P Assessment and Plan (1) Hemorrhagic shock: Code(s): R57.8 - Other shock Status: Acute Assessment and Plan: Patient has hemorrhagic shock due to upper GI bleed. Gastroenterology has been consulted. Patient received IV push Protonix 40 mg x 1 in the ER. Will given additional 40 mg IV and then initiate Protonix drip. At the time documentation CT ABD showed Fluid throughout much of the colon consistent nonspecific diarrhea which could be due to gastroenteritis or reported gastrointestinal bleed. There are 5 small foci of high attenuation within the ascending colon which are similar in density to the contrast in the colon which could represent foci of active extravasation although the multiplicity and dependent distribution would favor high attenuation material within the fecal stream.. Patient's blood pressures after 1 L of fluid and 1.5 units of blood has improved to 97/58. GI was consulted and he was taken for EGD showed bleeding ulcer which was caut erized, patient did have shortness of breath after the procedure and repeat hgb was stable. Hgb post procedure 8.8 following day 08/22 dropped to 7.0 repeat H&H pending and still moderately hypotensive. Patient Hgb increased to 7.8 but then dropped to 6.4 within 12 hours transfused 1 unit PRBC F/U 8.1. Patient with no BM or bloody emesis reported no overt signs of continued GIB but if hgb continues to drop my need another EGD for re-evaluation. Previous HX of iron deficiency anemia consulted hematology at least to get established will likely need continued iron transfusions and possible blood transfusions outpatient * Monitor H&H. Current 8.8/29.6. * Protonix BID * Transfuse 1 unit PRBC if Hgb <7.0 * Still with hypotension holding Lasix and spironolactone until BP tolerates * Hematology consult, appreciate recommendations. * Venofer 500 mg IVPB today and tomorrow. (2) Acute upper gastrointestinal bleeding: Code(s): K92.2 - Gastrointestinal hemorrhage, unspecified Status: Acute Assessment and Plan: SEE Above (3) Acute blood loss anemia: Code(s): D62 - Acute posthemorrhagic anemia Status: Acute Assessment and Plan: SEE ABOVE (4) Chronic respiratory failure with hypoxia, on home oxygen therapy: Code(s): J96.11 - Chronic respiratory failure with hypoxia; Z99.81 - Dependence on supplemental oxygen Status: Chronic Assessment and Plan: Patient wears 6L supplemental oxygen at home, emphysema * Albuterol inhaler as needed * Currently on his 6 L (5) Combined systolic and diastolic cardiac dysfunction: Code(s): I51.89 - Other ill-defined heart diseases Status: Acute Assessment and Plan: Patient has combined systolic and diastolic heart failure as well as reduced right-sided cardiac output with severe pulmonary hypertension. Will need to monitor fluid status closely given these multiple factors. Currently patient is stable on his home O2. reported SOB, CXR with small pleural effusions mildly elevated BNP a single dose IV Lasix 20 mg IV push * Resume Lasix when BP tolerates * Continuous cardiac monitoring (6) Protein-calorie malnutrition, moderate: Code(s): E44.0 - Moderate protein-calorie malnutrition Status: Acute Assessment and Plan: Patient does have significant protein calorie malnutrition with low serum albumin. * Protein 5.0. * Protein shakes with each meal (7) Hypokalemia: Code(s): E87.6 - Hypokalemia Status: Acute Assessment and Plan: Potassium 3.4 08/24 * 40meq replenished * keep K+ >4.0 * cardiac monitoring (8) Leukocytosis: Qualifiers: Leukocytosis type: leukemoid reaction Qualified Code(s): D72.823 - Leukemoid reaction Code(s): D72.829 - Elevated white blood cell count, unspecified Status: Resolved Assessment and Plan: Patient does have marked leukocytosis suspected to be due leukemoid reaction. No signs of infectious cause * Daily CBC resolving Plan Code status: Full code per patient DVT prophylaxis: Lovenox Stress ulcer prophylaxis: Protonix 40 daily PT/OT notes: PT/OT evaluation pending Disposition: Patient continues admission post hemorrhagic shock upper GI bleed have large ulcer cauterized and injected with epi wanting to continue to monitor H&H. PT/OT has been ordered for further evaluation and CC consulted plan is for discharge show rehab/SNF. Subjective Date/time seen: 08/24/24 11:06 Interval history: Patient sitting up in chair. Patient reports pain in back is a 5 , constant, and aching. Patient denies chest pain, palpitations, headache, dizziness, nausea, or vomiting. Patient reports Review of Systems Review of Systems: All systems reviewed & are unremarkable except as noted in HPI and below Exam Const: General: no acute distress and uncomfortable Resp: Effort & Inspection: normal respiratory effort Auscultation: clear to auscultation bilaterally Cardio: Rate: regular rate Rhythm: regular rhythm Other: Telemetry- SR 68. GI: GI Palp: Yes Soft to palpation Auscultation: normal bowel sounds Neuro: Speech: normal speech Extrem: General: no pedal edema Psych: Mental Status: mental status grossly normal Affect: normal affect Objective Data Vital Signs Vital Signs: Vital Signs - 24 hr 08/23/24 11:10 08/23/24 12:00 08/23/24 12:05 Temperature 98.2 F Pulse Rate 66 86 Respiratory Rate 16 Blood Pressure 92/52 L Pulse Oximetry 98 Oxygen Delivery Nasal Cannula Oxygen Flow Rate 6 08/23/24 14:00 08/23/24 16:04 08/23/24 20:00 Temperature 98.2 F Pulse Rate 66 90 Respiratory Rate 16 Blood Pressure 92/52 L Pulse Oximetry 98 97 Oxygen Delivery Nasal Cannula Oxygen Flow Rate 6 08/23/24 20:00 08/23/24 22:00 08/24/24 00:00 Temperature 98.4 F Pulse Rate 67 54 L 81 Respiratory Rate 16 Blood Pressure 94/49 L Pulse Oximetry 97 Oxygen Delivery Oxygen Flow Rate 08/24/24 04:00 08/24/24 06:00 08/24/24 08:40 Temperature 97 F L Pulse Rate 65 63 Respiratory Rate 16 Blood Pressure 100/51 L Pulse Oximetry 96 96 Oxygen Delivery High Flow Nasal Cannula Oxygen Flow Rate 6 08/24/24 10:23 Temperature Pulse Rate 73 Respiratory Rate Blood Pressure Pulse Oximetry Oxygen Delivery Oxygen Flow Rate Intake/Output Intake/Output: Intake & Output 08/21/24 08/22/24 08/23/24 08/24/24 23:59 23:59 23:59 23:59 Intake Total 1340 1490 2737 507 Output Total 0524 371 8224 950 Balance -560 568 -1413 -443 Meds/Results Medications: Active Medications Generic Name Dose Route Start Last Admin Trade Name Freq PRN Reason Stop Dose Admin Hydrocodone Bitart/Acetaminophen 1 tab 08/19/24 20:00 08/24/24 10:25 Hydrocodone/Acetaminophen (*Crx) 10-325 Mg Tablet PO 1 tab Q8HR PRN Administration pain Albuterol 1 puff 08/19/24 11:11 Albuterol Sulfate (*Sp) Aerosol 1 Puff INHALATION QID PRN shortness of breath or wheezing Albuterol/Ipratropium 3 ml 08/19/24 11:11 Ipratropium 0.5 Mg/Albuterol Sulfate 2.5 Mg Ampul.Neb 3 Ml INHALATION QID PRN shortness of breath Atorvastatin Calcium 80 mg 08/20/24 09:00 08/24/24 10:22 Atorvastatin 40 Mg Tablet PO 80 mg DAILY SALAZAR Administration Citalopram Hydrobromide 40 mg 08/20/24 09:00 08/24/24 10:22 Citalopram Hydrobromide 20 Mg Tablet PO 40 mg DAILY SALAZAR Administration Fluticasone/Umeclidinium/Vilanterol 1 puff 08/20/24 08:00 08/24/24 08:39 Fluticasone/Umeclidin/Vilanter 100-62.5-25 Mcg Ellipta INHALATION 1 puff DAILYRT SALAZAR Administration Furosemide 40 mg 08/20/24 09:00 08/22/24 08:15 Furosemide 40 Mg Tablet PO 40 mg DAILY SALAZAR Administration Iron Sucrose 400 mg/ Iron 275 mls @ 78.571 mls/hr 08/24/24 09:20 08/24/24 10:23 Sucrose 100 mg/ Sodium IVPB 08/25/24 12:29 78.57 mls/hr Chloride DAILY SALAZAR Administration Losartan Potassium 25 mg 08/20/24 09:00 08/22/24 08:15 Losartan Potassium 25 Mg Tablet PO 25 mg DAILY SALAZAR Administration Methocarbamol 750 mg 08/19/24 11:11 08/22/24 21:04 Methocarbamol 750 Mg Tablet PO 750 mg TID PRN Administration muscle spasm Metoprolol Succinate 25 mg 08/20/24 09:00 08/24/24 10:23 Metoprolol Succinate Ext Rel 25 Mg Tabcr PO 25 mg DAILY SALAZAR Administration Mirtazapine 15 mg 08/19/24 21:00 08/23/24 22:15 Mirtazapine 15 Mg Tablet BY MOUTH 15 mg HS SALAZAR Administration Ondansetron HCl 4 mg 08/20/24 08:16 08/20/24 08:52 Ondansetron Inj 4 Mg/2 Ml Vial IV PUSH 4 mg Q6H PRN Administration Nausea And Vomiting Pantoprazole Sodium 40 mg 08/23/24 21:00 08/24/24 10:23 Pantoprazole 40 Mg Tablet PO 40 mg Q12HR SALAZAR Administration Prednisone 20 mg 08/19/24 11:15 08/24/24 10:22 Prednisone 20 Mg Tablet BY MOUTH 20 mg DAILY SALAZAR Administration Sildenafil Citrate 40 mg 08/19/24 13:00 08/24/24 10:22 Sildenafil Citrate 20 Mg Tablet PO 40 mg TID SALAZAR Administration Spironolactone 25 mg 08/20/24 09:00 08/22/24 08:15 Spironolactone 25 Mg Tablet PO 25 mg DAILY SALAZAR Administration Radiology Results: ITS Impressions Abdomen/Pelvis CT 08/18/24 07:00 IMPRESSION: 1. Fluid throughout much of the colon consistent nonspecific diarrhea which could be due to gastroenteritis or reported gastrointestinal bleed. There are 5 small foci of high attenuation within the ascending colon which are similar in density to the contrast in the colon which could represent foci of active extravasation although the multiplicity and dependent distribution would favor high attenuation material within the fecal stream. 2. Mild diffuse gallbladder wall thickening with mild stranding near the fundus but without dilation to more specifically suggest acute cholecystitis. This could be due to decompressed state or potentially chronic cholecystitis. Correlate clinically for Arora sign and if indicated could consider further evaluation with either right upper quadrant ultrasound or HIDA scan. 3. 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 4. Extensive atherosclerotic disease with multifocal severe stenosis along the left external, superficial femoral and deep femoral arteries and at the right deep femoral artery with moderate stenosis at the right superficial femoral artery. 5. Numerous compression and burst fractures from T9 through L5 sparing L2 and several which appear relatively recent and new since 05/29/2024. Chest X-Ray 08/23/24 13:31 Impression: Small right pleural effusion with probable bibasilar pulmonary edema/atelectasis. Correlate clinically for pneumonia. Labs Labs: Laboratory Results - last 24 hr 08/21/24 08/23/24 08/23/24 06:27 05:14 11:58 WBC RBC Hgb 8.1 L Hct 27.0 L MCV MCH MCHC RDW Plt Count MPV Sodium Potassium Chloride Carbon Dioxide Anion Gap BUN Creatinine Estim Creat Clear Calc Estimated GFR Glucose Calcium Total Bilirubin AST ALT Alkaline Phosphatase NT-Pro-B Natriuret Pep 493 H Total Protein Albumin Crossmatch See Detail 08/23/24 08/24/24 18:41 05:46 WBC 8.6 RBC 3.14 L Hgb 8.7 L 8.8 L Hct 28.0 L 29.6 L MCV 94.3 MCH 28.0 MCHC 29.7 L RDW 22.7 H Plt Count 115 L MPV 10.4 Sodium 138 Potassium 3.4 Chloride 108 H Carbon Dioxide 24 Anion Gap 6 BUN 14 Creatinine 0.83 Estim Creat Clear Calc 61 Estimated GFR > 60 Glucose 102 Calcium 8.2 L Total Bilirubin 1.5 H AST 33 ALT 48 Alkaline Phosphatase 130 H NT-Pro-B Natriuret Pep Total Protein 5.0 L Albumin 3.1 L Crossmatch Quality VTE Prophylaxis VTE prophylaxis: mechanical ordered (SCDs)
[2024-08-24] MEDS: POTASSIUM CHLORIDE 20 MEQ ER TABLET 40 MEQ PO (13:03)
[2024-08-24] MEDS: polyethylene glycoL 3350 17 GM POWD.PACK PO (13:04)
--- NOTE | 2024-08-24 16:29 | P.PNGI_ITS ---
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 h pylori negative repeat egd in 3-4 months to assess healing tolerating diet diet (2) Gastric ulcer: Code(s): K25.9 - Gastric ulcer, unspecified as acute or chronic, without hemorrhage or perforation Status: Acute Assessment and Plan: treated protonix (3) Acute blood loss anemia: Code(s): D62 - Acute posthemorrhagic anemia Status: Acute Assessment and Plan: monitor for more signs of bleeding (4) Combined systolic and diastolic cardiac dysfunction: Code(s): I51.89 - Other ill-defined heart diseases Status: Acute Subjective Date/time seen: 08/24/24 16:29 Interval history: he is doing better today, he is in good spirits Review of Systems Review of Systems: All systems reviewed & are unremarkable except as noted in HPI and below Exam Const: General: comfortable HENMT: Face/Nose/Sinus: Normal nares present Eyes: General: appearance normal, both eyes and all related structures Neck: Neck: supple Resp: Auscultation: clear to auscultation bilaterally Cardio: Rate: regular rate Rhythm: regular rhythm GI: Inspection: non-distended GI Palp: Yes Soft to palpation and No Tenderness to palpation present (GI) Neuro: Speech: normal speech Extrem: General: normal to inspection Psych: Mental Status: mental status grossly normal Objective Data Vital Signs Vital Signs: Vital Signs - 24 hr 08/23/24 20:00 08/23/24 20:00 08/23/24 22:00 Temperature 98.4 F Pulse Rate 67 54 L Respiratory Rate 16 Blood Pressure 94/49 L Pulse Oximetry 97 97 Oxygen Delivery Nasal Cannula Oxygen Flow Rate 6 08/24/24 00:00 08/24/24 04:00 08/24/24 06:00 Temperature 97 F L Pulse Rate 81 65 63 Respiratory Rate 16 Blood Pressure 100/51 L Pulse Oximetry 96 Oxygen Delivery Oxygen Flow Rate 08/24/24 08:00 08/24/24 08:40 08/24/24 10:23 Temperature Pulse Rate 73 Respiratory Rate Blood Pressure Pulse Oximetry 96 96 Oxygen Delivery High Flow Nasal Cannula High Flow Nasal Cannula Oxygen Flow Rate 6 6 08/24/24 14:00 Temperature 97.3 F L Pulse Rate 74 Respiratory Rate 16 Blood Pressure 101/52 L Pulse Oximetry 95 Oxygen Delivery Oxygen Flow Rate Intake/Output Intake/Output: Intake & Output 08/21/24 08/22/24 08/23/24 08/24/24 23:59 23:59 23:59 23:59 Intake Total 1340 1490 2737 627 Output Total 4229 154 7362 950 Balance -560 740 -1413 -323 Meds/Results Medications: Active Medications Generic Name Dose Route Start Last Admin Trade Name Freq PRN Reason Stop Dose Admin Hydrocodone Bitart/Acetaminophen 1 tab 08/19/24 20:00 08/24/24 10:25 Hydrocodone/Acetaminophen (*Crx) 10-325 Mg Tablet PO 1 tab Q8HR PRN Administration pain Albuterol 1 puff 08/19/24 11:11 Albuterol Sulfate (*Sp) Aerosol 1 Puff INHALATION QID PRN shortness of breath or wheezing Albuterol/Ipratropium 3 ml 08/19/24 11:11 Ipratropium 0.5 Mg/Albuterol Sulfate 2.5 Mg Ampul.Neb 3 Ml INHALATION QID PRN shortness of breath Atorvastatin Calcium 80 mg 08/20/24 09:00 08/24/24 10:22 Atorvastatin 40 Mg Tablet PO 80 mg DAILY SALAZAR Administration Citalopram Hydrobromide 40 mg 08/20/24 09:00 08/24/24 10:22 Citalopram Hydrobromide 20 Mg Tablet PO 40 mg DAILY SALAZAR Administration Docusate Sodium 100 mg 08/24/24 11:18 Docusate Sodium 100 Mg Capsule PO Q12H PRN Constipation Fluticasone/Umeclidinium/Vilanterol 1 puff 08/20/24 08:00 08/24/24 08:39 Fluticasone/Umeclidin/Vilanter 100-62.5-25 Mcg Ellipta INHALATION 1 puff DAILYRT SALAZAR Administration Furosemide 40 mg 08/20/24 09:00 08/22/24 08:15 Furosemide 40 Mg Tablet PO 40 mg DAILY SALAZAR Administration Iron Sucrose 400 mg/ Iron 275 mls @ 78.571 mls/hr 08/24/24 09:20 08/24/24 10 :23 Sucrose 100 mg/ Sodium IVPB 08/25/24 12:29 78.57 mls/hr Chloride DAILY SALAZAR Administration Losartan Potassium 25 mg 08/20/24 09:00 08/22/24 08:15 Losartan Potassium 25 Mg Tablet PO 25 mg DAILY SALAZAR Administration Methocarbamol 750 mg 08/19/24 11:11 08/22/24 21:04 Methocarbamol 750 Mg Tablet PO 750 mg TID PRN Administration muscle spasm Metoprolol Succinate 25 mg 08/20/24 09:00 08/24/24 10:23 Metoprolol Succinate Ext Rel 25 Mg Tabcr PO 25 mg DAILY SALAZAR Administration Mirtazapine 15 mg 08/19/24 21:00 08/23/24 22:15 Mirtazapine 15 Mg Tablet BY MOUTH 15 mg HS SALAZAR Administration Ondansetron HCl 4 mg 08/20/24 08:16 08/20/24 08:52 Ondansetron Inj 4 Mg/2 Ml Vial IV PUSH 4 mg Q6H PRN Administration Nausea And Vomiting Pantoprazole Sodium 40 mg 08/23/24 21:00 08/24/24 10:23 Pantoprazole 40 Mg Tablet PO 40 mg Q12HR SALAZAR Administration Polyethylene Glycol 17 gm 08/24/24 11:20 08/24/24 13:04 Polyethylene Glycol 3350 17 Gm Powd.Pack PO 17 gm QAM SALAZAR Administration Prednisone 20 mg 08/19/24 11:15 08/24/24 10:22 Prednisone 20 Mg Tablet BY MOUTH 20 mg DAILY SALAZAR Administration Sildenafil Citrate 40 mg 08/19/24 13:00 08/24/24 13:04 Sildenafil Citrate 20 Mg Tablet PO 40 mg TID SALAZAR Administration Spironolactone 25 mg 08/20/24 09:00 08/22/24 08:15 Spironolactone 25 Mg Tablet PO 25 mg DAILY SALAZAR Administration Radiology Results: ITS Impressions Abdomen/Pelvis CT 08/18/24 07:00 IMPRESSION: 1. Fluid throughout much of the colon consistent nonspecific diarrhea which could be due to gastroenteritis or reported gastrointestinal bleed. There are 5 small foci of high attenuation within the ascending colon which are similar in density to the contrast in the colon which could represent foci of active extravasation although the multiplicity and dependent distribution would favor high attenuation material within the fecal stream. 2. Mild diffuse gallbladder wall thickening with mild stranding near the fundus but without dilation to more specifically suggest acute cholecystitis. This could be due to decompressed state or potentially chronic cholecystitis. Correlate clinically for Arora sign and if indicated could consider further evaluation with either right upper quadrant ultrasound or HIDA scan. 3. 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 4. Extensive atherosclerotic disease with multifocal severe stenosis along the left external, superficial femoral and deep femoral arteries and at the right deep femoral artery with moderate stenosis at the right superficial femoral artery. 5. Numerous compression and burst fractures from T9 through L5 sparing L2 and several which appear relatively recent and new since 05/29/2024. Chest X-Ray 08/23/24 13:31 Impression: Small right pleural effusion with probable bibasilar pulmonary edema/atelectasis. Correlate clinically for pneumonia. Labs Labs: Laboratory Results - last 24 hr 08/23/24 08/24/24 18:41 05:46 WBC 8.6 RBC 3.14 L Hgb 8.7 L 8.8 L Hct 28.0 L 29.6 L MCV 94.3 MCH 28.0 MCHC 29.7 L RDW 22.7 H Plt Count 115 L MPV 10.4 Sodium 138 Potassium 3.4 Chloride 108 H Carbon Dioxide 24 Anion Gap 6 BUN 14 Creatinine 0.83 Estim Creat Clear Calc 61 Estimated GFR > 60 Glucose 102 Calcium 8.2 L Total Bilirubin 1.5 H AST 33 ALT 48 Alkaline Phosphatase 130 H Total Protein 5.0 L Albumin 3.1 L
--- NOTE | 2024-08-24 18:18 | WPDONCPN ---
Progress Note: A&P Assessment and Plan (1) Acute on chronic anemia: Code(s): D64.9 - Anemia, unspecified Status: Acute Assessment and Plan: Patient with acute on chronic anemia due to GI bleeding. EGD has shown a large ulcer in stomach incisura. He underwent cauterization and epinephrine injection to the ulcer. He is also on IV Protonix. Patient has been started on oral iron here in during this hospitalization. Hematology advise against doing oral iron because it can irritate the ulcer. I recommended that oral iron to be stopped as it may be aggravating the ulcer and since then it has been stopped. Patient received iron sucrose 400 mg. Recommend giving another dose of iron sucrose of 400 mg tomorrow. I believe his anemia is still likely due to slowly oozing GI ulcer and and perhaps there is a clot formation and hemostasis has been achieved as his hemoglobin today is 8.8.. However it is too soon to make the conclusions. Patient should be observed for next few days for stabilization of hemoglobin before he is discharged to rehab. He should see development director, Dr. Garcia, as an outpatient for need of any IV iron and a chronic basis. Thrombocytopenia- Additionally noted is thrombocytopenia since admission. Patient presented with a platelet count of 302 K and over the course of last few days platelets has been slowly decreasing and platelet count was at its lowest at 100 K on 08/23/2024. Today the platelet count is 115 K. it could be that he may have had exposure to allo- antibodies to platelets from donated blood. No need for any intervention. Subjective Date/time seen: 08/24/24 18:18 Interval history: Patient reports that he feels better today. is at bedside. There were no overnight events. Review of Systems Review of Systems Patient reports that he is feeling much better than in the last few weeks. States that he has received 2 units of blood so far since hospitalization. States that he is accepted at a rehab place of his choice and it anticipating rehab before he goes home. States that he has COPD which also restricts his mobility. States that he is very cold all the time. He denies any chest pain but has exertional shortness of breath. He denies any fever, chills, night sweats. No abdominal pain. No diarrhea. Since admission he also denies any hematemesis, hematochezia, melena. Rest of 12 point review of system is negative. Exam Narrative: Alert and oriented x3 very pleasant male in no acute distress ill-appearing. HEENT: eyes are clear and none icteric LUNGS:CTAB HEART: RR S1S2 ABD: BS+, Soft and nontender Lower extremities: no edema SKIN: nonjaundiced Neuro: grossly intact. Objective Data Vital Signs Vital Signs: Vital Signs - 24 hr 08/23/24 20:00 08/23/24 20:00 08/23/24 22:00 Temperature 36.9 C Pulse Rate 67 54 L Respiratory Rate 16 Blood Pressure 94/49 L Pulse Oximetry 97 97 Oxygen Delivery Nasal Cannula Oxygen Flow Rate 6 08/24/24 00:00 08/24/24 04:00 08/24/24 06:00 Temperature 36.1 C L Pulse Rate 81 65 63 Respiratory Rate 16 Blood Pressure 100/51 L Pulse Oximetry 96 Oxygen Delivery Oxygen Flow Rate 08/24/24 08:00 08/24/24 08:00 08/24/24 08:40 Temperature Pulse Rate 70 Respiratory Rate Blood Pressure Pulse Oximetry 96 96 Oxygen Delivery High Flow Nasal Cannula High Flow Nasal Cannula Oxygen Flow Rate 6 6 08/24/24 10:23 08/24/24 12:00 08/24/24 14:00 Temperature 36.3 C L Pulse Rate 73 61 74 Respiratory Rate 16 Blood Pressure 101/52 L Pulse Oximetry 95 Oxygen Delivery Oxygen Flow Rate 08/24/24 16:00 Temperature Pulse Rate 61 Respiratory Rate Blood Pressure Pulse Oximetry Oxygen Delivery Oxygen Flow Rate Intake/Output Intake/Output: Intake & Output 08/21/24 08/22/24 08/23/24 08/24/24 23:59 23:59 23:59 23:59 Intake Total 1340 1490 2737 1227 Output Total 9661 092 5597 950 Balance -560 740 -1413 277 Meds/Results Medications: Active Medications Generic Name Dose Route Start Last Admin Trade Name Freq PRN Reason Stop Dose Admin Hydrocodone Bitart/Acetaminophen 1 tab 08/19/24 20:00 08/24/24 10:25 Hydrocodone/Acetaminophen (*Crx) 10-325 Mg Tablet PO 1 tab Q8HR PRN Administration pain Albuterol 1 puff 08/19/24 11:11 Albuterol Sulfate (*Sp) Aerosol 1 Puff INHALATION QID PRN shortness of breath or wheezing Albuterol/Ipratropium 3 ml 08/19/24 11:11 Ipratropium 0.5 Mg/Albuterol Sulfate 2.5 Mg Ampul.Neb 3 Ml INHALATION QID PRN shortness of breath Atorvastatin Calcium 80 mg 08/20/24 09:00 08/24/24 10:22 Atorvastatin 40 Mg Tablet PO 80 mg DAILY SALAZAR Administration Citalopram Hydrobromide 40 mg 08/20/24 09:00 08/24/24 10:22 Citalopram Hydrobromide 20 Mg Tablet PO 40 mg DAILY SALAZAR Administration Docusate Sodium 100 mg 08/24/24 11:18 Docusate Sodium 100 Mg Capsule PO Q12H PRN Constipation Fluticasone/Umeclidinium/Vilanterol 1 puff 08/20/24 08:00 08/24/24 08:39 Fluticasone/Umeclidin/Vilanter 100-62.5-25 Mcg Ellipta INHALATION 1 puff DAILYRT SALAZAR Administration Furosemide 40 mg 08/20/24 09:00 08/22/24 08:15 Furosemide 40 Mg Tablet PO 40 mg DAILY SALAZAR Administration Iron Sucrose 400 mg/ Iron 275 mls @ 78.571 mls/hr 08/24/24 09:20 08/24/24 10:23 Sucrose 100 mg/ Sodium IVPB 08/25/24 12:29 78.57 mls/hr Chloride DAILY SALAZAR Administration Losartan Potassium 25 mg 08/20/24 09:00 08/22/24 08:15 Losartan Potassium 25 Mg Tablet PO 25 mg DAILY SALAZAR Administration Methocarbamol 750 mg 08/19/24 11:11 08/22/24 21:04 Methocarbamol 750 Mg Tablet PO 750 mg TID PRN Administration muscle spasm Metoprolol Succinate 25 mg 08/20/24 09:00 08/24/24 10:23 Metoprolol Succinate Ext Rel 25 Mg Tabcr PO 25 mg DAILY SALAZAR Administration Mirtazapine 15 mg 08/19/24 21:00 08/23/24 22:15 Mirtazapine 15 Mg Tablet BY MOUTH 15 mg HS SALAZAR Administration Ondansetron HCl 4 mg 08/20/24 08:16 08/20/24 08:52 Ondansetron Inj 4 Mg/2 Ml Vial IV PUSH 4 mg Q6H PRN Administration Nausea And Vomiting Pantoprazole Sodium 40 mg 08/23/24 21:00 08/24/24 10:23 Pantoprazole 40 Mg Tablet PO 40 mg Q12HR SALAZAR Administration Polyethylene Glycol 17 gm 08/24/24 11:20 08/24/24 13:04 Polyethylene Glycol 3350 17 Gm Powd.Pack PO 17 gm QAM SALAZAR Administration Prednisone 20 mg 08/19/24 11:15 08/24/24 10:22 Prednisone 20 Mg Tablet BY MOUTH 20 mg DAILY SALAZAR Administration Sildenafil Citrate 40 mg 08/19/24 13:00 08/24/24 17:21 Sildenafil Citrate 20 Mg Tablet PO 40 mg TID SALAZAR Administration Spironolactone 25 mg 08/20/24 09:00 08/22/24 08:15 Spironolactone 25 Mg Tablet PO 25 mg DAILY SALAZAR Administration Radiology Results: ITS Impressions Abdomen/Pelvis CT 08/18/24 07:00 IMPRESSION: 1. Fluid throughout much of the colon consistent nonspecific diarrhea which could be due to gastroenteritis or reported gastrointestinal bleed. There are 5 small foci of high attenuation within the ascending colon which are similar in density to the contrast in the colon which could represent foci of active extravasation although the multiplicity and dependent distribution would favor high attenuation material within the fecal stream. 2. Mild diffuse gallbladder wall thickening with mild stranding near the fundus but without dilation to more specifically suggest acute cholecystitis. This could be due to decompressed state or potentially chronic cholecystitis. Correlate clinically for Arora sign and if indicated could consider further evaluation with either right upper quadrant ultrasound or HIDA scan. 3. 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 4. Extensive atherosclerotic disease with multifocal severe stenosis along the left external, superficial femoral and deep femoral arteries and at the right deep femoral artery with moderate stenosis at the right superficial femoral artery. 5. Numerous compression and burst fractures from T9 through L5 sparing L2 and several which appear relatively recent and new since 05/29/2024. Chest X-Ray 08/23/24 13:31 Impression: Small right pleural effusion with probable bibasilar pulmonary edema/atelectasis. Correlate clinically for pneumonia. Labs Labs: Laboratory Results - last 24 hr 08/23/24 08/24/24 18:41 05:46 WBC 8.6 RBC 3.14 L Hgb 8.7 L 8.8 L Hct 28.0 L 29.6 L MCV 94.3 MCH 28.0 MCHC 29.7 L RDW 22.7 H Plt Count 115 L MPV 10.4 Sodium 138 Potassium 3.4 Chloride 108 H Carbon Dioxide 24 Anion Gap 6 BUN 14 Creatinine 0.83 Estim Creat Clear Calc 61 Estimated GFR > 60 Glucose 102 Calcium 8.2 L Total Bilirubin 1.5 H AST 33 ALT 48 Alkaline Phosphatase 130 H Total Protein 5.0 L Albumin 3.1 L
[2024-08-24] MEDS: MIRTAZAPINE 15 MG TABLET BY MOUTH (21:18)
[2024-08-25] VITALS (14 sets, daily range): BP systolic 95–120; BP diastolic 50–74; PULSE 53–87; RESP 16–20; TEMP 36.6–36.9; O2SAT 94–100
[2024-08-25 05:20] LABS: Hematocrit 30.6 % (42.0-52.0); Hemoglobin 9.2 g/dL (14.0-18.0); Mean Corpuscular HGB Conc 30.1 g/dl (32-36); Mean Corpuscular Hemoglobin 28.3 pg (26-34); Mean Corpuscular Volume 94.2 fl (80-100); Mean Platelet Volume 10.3 fl (7.4-10.4); Platelet Count Result 129 k/mm3 (150-375); Red Blood Count 3.25 M/mm3 (4.6-6.20); Red Cell Distribution Width 22.9 % (11.5-14.5); White Blood Count 10.8 K/mm3 (4.5-10.0)
[2024-08-25 05:34] LABS: Alanine Aminotransferase 54 U/L (6-50); Albumin Level 2.8 g/dL (3.5-5.1); Alkaline Phosphatase 141 U/L (38-126); Anion Gap 4 mmol/L (4-12); Aspartate Amino Transferase 37 U/L (17-59); Bilirubin,Total 1.3 mg/dL (0.2-1.3); Blood Urea Nitrogen 13 mg/dL (9-20); Calcium 8.1 mg/dL (8.4-10.2); Carbon Dioxide 24 mmol/L (22-30); Chloride 108 mmol/L (98-107); Estimated CRCL calculation 68 ml/min; Estimated Glomerular Filt Rate > 60; Glucose 90 mg/dL (65-110); Potassium 4.1 mmol/L (3.4-5.0); Sodium 136 mmol/L (137-145)
[2024-08-25] MEDS: FLUTICASONE/UMECLIDIN/VILANTER 100-62.5-25 MCG ELLIPTA 1 PUFF INHALATION (08:15)
[2024-08-25] MEDS: ATORVASTATIN 40 MG TABLET 80 MG PO (09:17)
[2024-08-25] MEDS: SILDENAFIL CITRATE 20 MG TABLET 40 MG PO ×3 (09:17→17:06)
[2024-08-25] MEDS: CITALOPRAM HYDROBROMIDE 20 MG TABLET 40 MG PO (09:17)
[2024-08-25] MEDS: predniSONE 20 MG TABLET BY MOUTH (09:17)
[2024-08-25] MEDS: PANTOPRAZOLE 40 MG TABLET PO ×2 (09:18→21:47)
[2024-08-25] MEDS: polyethylene glycoL 3350 17 GM POWD.PACK PO (09:18)
[2024-08-25] MEDS: METOPROLOL SUCCINATE EXT REL 25 MG TABCR PO (09:18)
[2024-08-25] MEDS: IRON SUCROSE COMPLEX 400 MG, IRON SUCROSE COMPLEX 100 MG in SODIUM CHLORIDE 0.9% IV 250 ML 78.57 MG IVPB (09:26)
[2024-08-25 10:19] LABS: Magnesium 1.9 mg/dL (1.6-2.3)
--- NOTE | 2024-08-25 10:49 | WPDONCPN ---
Progress Note: A&P Assessment and Plan (1) Acute on chronic anemia: Code(s): D64.9 - Anemia, unspecified Status: Acute Assessment and Plan: Patient with acute on chronic anemia due to GI bleeding. EGD has shown a large ulcer in stomach incisura. He underwent cauterization and epinephrine injection to the ulcer. He is also on IV Protonix. Patient has been started on oral iron here in during this hospitalization. Hematology advise against doing oral iron because it can irritate the ulcer. I recommended that oral iron to be stopped as it may be aggravating the ulcer and since then it has been stopped. Patient received iron sucrose 400 mg on 08/24/2024. He will receive another dose of iron sucrose of 400 mg IV today, Patient presented to ER on 08/22/2024 with inability to urinate for 5 days prior to admission. Further workup in the ER with CBC and CMP showed a creatinine of 12.7 and patient in acute renal failure. A CT scan of abdomen and pelvis without contrast was obtained which showed bilateral hydroureteronephrosis without stone. There was significant perinephric inflammation. There was mural wall thickening of the posterior wall of the bladder concerning for bladder cancer. Patient was seen by urology team and underwent cystoscopy on 08/23/2024. 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 The large section of mass was resected from the left akiko trigone in attempt to find the left ureteral orifice but urologist was not able to identify left ureteral orifice. Right ureteral orifice was identified and a stent was placed. About 5-6 cm of the mass was resected via TURBT. Oncology is consulted for possible bladder or prostate cancer. CT of abdomen and pelvis without contrast could not comment on regional lymphadenopathy due to absence of contrast. We will await pathology as this could be primary bladder versus prostate cancer. When we have a pathology report we will further advice on management plan. 08/25/2024. Anemia has now stabilized. His hemoglobin today is 9.2 g/dL and we are hopeful that perhaps hemostasis is achieved now. Thrombocytopenia- Additionally noted is thrombocytopenia since admission. Patient presented with a platelet count of 302 K and over the course of last few days platelets has been slowly decreasing and platelet count was at its lowest at 100 K on 08/23/2024. Today the platelet count is 129 K. it could be that he may have had exposure to allo- antibodies to platelets from donated blood. No need for any intervention. Subjective Date/time seen: 08/25/24 10:49 Interval history: Patient reports that he feels better today eating breakfast. There were no overnight events. Review of Systems Review of Systems Patient reports that he is feeling much better than in the last few weeks. States that he has received 2 units of blood so far since admission. States that he is accepted at a rehab place of his choice and it anticipating rehab before he goes home. States that he has COPD which also restricts his mobility. States that he is very cold all the time. He denies any chest pain but has exertional shortness of breath. He denies any fever, chills, night sweats. No abdominal pain. No diarrhea. Since admission he also denies any hematemesis, hematochezia, melena. Rest of 12 point review of system is negative. Exam Narrative: Alert and oriented x3 very pleasant male in no acute distress ill-appearing. HEENT: eyes are clear and none icteric LUNGS:CTAB HEART: RR S1S2 ABD: BS+, Soft and nontender Lower extremities: no edema SKIN: nonjaundiced Neuro: grossly intact. Objective Data Vital Signs Vital Signs: Vital Signs - 24 hr 08/24/24 12:00 08/24/24 14:00 08/24/24 16:00 Temperature 36.3 C L Pulse Rate 61 74 61 Respiratory Rate 16 Blood Pressure 101/52 L Pulse Oximetry 95 Oxygen Delivery Oxygen Flow Rate 08/24/24 20:00 08/24/24 20:30 08/24/24 21:37 Temperature Pulse Rate 60 Respiratory Rate Blood Pressure Pulse Oximetry 92 92 Oxygen Delivery High Flow Nasal Cannula Nasal Cannula Oxygen Flow Rate 6 6 08/24/24 21:47 08/25/24 00:00 08/25/24 04:12 Temperature 36.6 C Pulse Rate 60 55 L 53 L Respiratory Rate 22 H Blood Pressure 153/71 H Pulse Oximetry 93 Oxygen Delivery Oxygen Flow Rate 08/25/24 06:11 08/25/24 08:16 08/25/24 09:18 Temperature 36.6 C Pulse Rate 60 69 Respiratory Rate 20 Blood Pressure 120/74 Pulse Oximetry 100 96 Oxygen Delivery High Flow Nasal Cannula Oxygen Flow Rate 6 Intake/Output Intake/Output: Intake & Output 08/22/24 08/23/24 08/24/24 08/25/24 23:59 23:59 23:59 23:59 Intake Total 1490 2737 1622 757 Output Total 750 4150 1350 710 Balance 740 -1413 272 47 Meds/Results Medications: Active Medications Generic Name Dose Route Start Last Admin Trade Name Freq PRN Reason Stop Dose Admin Hydrocodone Bitart/Acetaminophen 1 tab 08/19/24 20:00 08/24/24 10:25 Hydrocodone/Acetaminophen (*Crx) 10-325 Mg Tablet PO 1 tab Q8HR PRN Administration pain Albuterol 1 puff 08/19/24 11:11 Albuterol Sulfate (*Sp) Aerosol 1 Puff INHALATION QID PRN shortness of breath or wheezing Albuterol/Ipratropium 3 ml 08/19/24 11:11 Ipratropium 0.5 Mg/Albuterol Sulfate 2.5 Mg Ampul.Neb 3 Ml INHALATION QID PRN shortness of breath Atorvastatin Calcium 80 mg 08/20/24 09:00 08/25/24 09:17 Atorvastatin 40 Mg Tablet PO 80 mg DAILY SALAZAR Administration Citalopram Hydrobromide 40 mg 08/20/24 09:00 08/25/24 09:17 Citalopram Hydrobromide 20 Mg Tablet PO 40 mg DAILY SALAZAR Administration Docusate Sodium 100 mg 08/24/24 11:18 Docusate Sodium 100 Mg Capsule PO Q12H PRN Constipation Fluticasone/Umeclidinium/Vilanterol 1 puff 08/20/24 08:00 08/25/24 08:15 Fluticasone/Umeclidin/Vilanter 100-62.5-25 Mcg Ellipta INHALATION 1 puff DAILYRT SALAZAR Administration Furosemide 40 mg 08/20/24 09:00 08/22/24 08:15 Furosemide 40 Mg Tablet PO 40 mg DAILY SALAZAR Administration Iron Sucrose 400 mg/ Iron 275 mls @ 78.571 mls/hr 08/24/24 09:20 08/25/24 09:26 Sucrose 100 mg/ Sodium IVPB 08/25/24 12:29 78.57 mls/hr Chloride DAILY SALAZAR Administration Losartan Potassium 25 mg 08/20/24 09:00 08/22/24 08:15 Losartan Potassium 25 Mg Tablet PO 25 mg DAILY SALAZAR Administration Methocarbamol 750 mg 08/19/24 11:11 08/22/24 21:04 Methocarbamol 750 Mg Tablet PO 750 mg TID PRN Administration muscle spasm Metoprolol Succinate 25 mg 08/20/24 09:00 08/25/24 09:18 Metoprolol Succinate Ext Rel 25 Mg Tabcr PO 25 mg DAILY SALAZAR Administration Mirtazapine 15 mg 08/19/24 21:00 08/24/24 21:18 Mirtazapine 15 Mg Tablet BY MOUTH 15 mg HS SALAZAR Administration Ondansetron HCl 4 mg 08/20/24 08:16 08/20/24 08:52 Ondansetron Inj 4 Mg/2 Ml Vial IV PUSH 4 mg Q6H PRN Administration Nausea And Vomiting Pantoprazole Sodium 40 mg 08/23/24 21:00 08/25/24 09:18 Pantoprazole 40 Mg Tablet PO 40 mg Q12HR SALAZAR Administration Polyethylene Glycol 17 gm 08/24/24 11:20 08/25/24 09:18 Polyethylene Glycol 3350 17 Gm Powd.Pack PO 17 gm QAM SALAZAR Administration Prednisone 20 mg 08/19/24 11:15 08/25/24 09:17 Prednisone 20 Mg Tablet BY MOUTH 20 mg DAILY SALAZAR Administration Sildenafil Citrate 40 mg 08/19/24 13:00 08/25/24 09:17 Sildenafil Citrate 20 Mg Tablet PO 40 mg TID SALAZAR Administration Spironolactone 25 mg 08/20/24 09:00 08/22/24 08:15 Spironolactone 25 Mg Tablet PO 25 mg DAILY SALAZAR Administration Radiology Results: ITS Impressions Abdomen/Pelvis CT 08/18/24 07:00 IMPRESSION: 1. Fluid throughout much of the colon consistent nonspecific diarrhea which could be due to gastroenteritis or reported gastrointestinal bleed. There are 5 small foci of high attenuation within the ascending colon which are similar in density to the contrast in the colon which could represent foci of active extravasation although the multiplicity and dependent distribution would favor high attenuation material within the fecal stream. 2. Mild diffuse gallbladder wall thickening with mild stranding near the fundus but without dilation to more specifically suggest acute cholecystitis. This could be due to decompressed state or potentially chronic cholecystitis. Correlate clinically for Arora sign and if indicated could consider further evaluation with either right upper quadrant ultrasound or HIDA scan. 3. 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 4. Extensive atherosclerotic disease with multifocal severe stenosis along the left external, superficial femoral and deep femoral arteries and at the right deep femoral artery with moderate stenosis at the right superficial femoral artery. 5. Numerous compression and burst fractures from T9 through L5 sparing L2 and several which appear relatively recent and new since 05/29/2024. Chest X-Ray 08/23/24 13:31 Impression: Small right pleural effusion with probable bibasilar pulmonary edema/atelectasis. Correlate clinically for pneumonia. Labs Labs: Laboratory Results - last 24 hr 08/25/24 08/25/24 05:08 05:13 WBC 10.8 H RBC 3.25 L Hgb 9.2 L Hct 30.6 L MCV 94.2 MCH 28.3 MCHC 30.1 L RDW 22.9 H Plt Count 129 L MPV 10.3 Sodium 136 L Potassium 4.1 Chloride 108 H Carbon Dioxide 24 Anion Gap 4 BUN 13 Creatinine 0.73 Estim Creat Clear Calc 68 Estimated GFR > 60 Glucose 90 Calcium 8.1 L Magnesium 1.9 Total Bilirubin 1.3 AST 37 ALT 54 H Alkaline Phosphatase 141 H Total Protein 5.0 L Albumin 2.8 L
--- NOTE | 2024-08-25 11:36 | P.PNIM_ITS ---
Progress Note: A&P Assessment and Plan (1) Hemorrhagic shock: Code(s): R57.8 - Other shock Status: Acute Assessment and Plan: Patient has hemorrhagic shock due to upper GI bleed. Gastroenterology has been consulted. Patient received IV push Protonix 40 mg x 1 in the ER. Will given additional 40 mg IV and then initiate Protonix drip. At the time documentation CT ABD showed Fluid throughout much of the colon consistent nonspecific diarrhea which could be due to gastroenteritis or reported gastrointestinal bleed. There are 5 small foci of high attenuation within the ascending colon which are similar in density to the contrast in the colon which could represent foci of active extravasation although the multiplicity and dependent distribution would favor high attenuation material within the fecal stream.. Patient's blood pressures after 1 L of fluid and 1.5 units of blood has improved to 97/58. GI was consulted and he was taken for EGD showed bleeding ulcer which was caute rized, patient did have shortness of breath after the procedure and repeat hgb was stable. Hgb post procedure 8.8 following day 08/22 dropped to 7.0 repeat H&H pending and still moderately hypotensive. Patient Hgb increased to 7.8 but then dropped to 6.4 within 12 hours transfused 1 unit PRBC F/U 8.1. Patient with no BM or bloody emesis reported no overt signs of continued GIB but if hgb continues to drop my need another EGD for re-evaluation. Previous HX of iron deficiency anemia consulted hematology at least to get established will likely need continued iron transfusions and possible blood transfusions outpatient * Monitor H&H. Current 9.2/30.6. * Protonix BID * Transfuse 1 unit PRBC if Hgb <7.0 * Still with hypotension holding Lasix and spironolactone until BP tolerates * Hematology consult, appreciate recommendations. * Venofer 500 mg IVPB yesterday and today. (2) Acute upper gastrointestinal bleeding: Code(s): K92.2 - Gastrointestinal hemorrhage, unspecified Status: Acute Assessment and Plan: SEE Above (3) Acute blood loss anemia: Code(s): D62 - Acute posthemorrhagic anemia Status: Acute Assessment and Plan: SEE ABOVE (4) Chronic respiratory failure with hypoxia, on home oxygen therapy: Code(s): J96.11 - Chronic respiratory failure with hypoxia; Z99.81 - Dependence on supplemental oxygen Status: Chronic Assessment and Plan: Patient wears 6L supplemental oxygen at home, emphysema * Albuterol inhaler as needed * Currently on his 6 L (5) Combined systolic and diastolic cardiac dysfunction: Code(s): I51.89 - Other ill-defined heart diseases Status: Acute Assessment and Plan: Patient has combined systolic and diastolic heart failure as well as reduced right-sided cardiac output with severe pulmonary hypertension. Will need to monitor fluid status closely given these multiple factors. Currently patient is stable on his home O2. reported SOB, CXR with small pleural effusions mildly elevated BNP a single dose IV Lasix 20 mg IV push * Resume Lasix when BP tolerates * Continuous cardiac monitoring (6) Protein-calorie malnutrition, moderate: Code(s): E44.0 - Moderate protein-calorie malnutrition Status: Acute Assessment and Plan: Patient does have significant protein calorie malnutrition with low serum albumin. * Protein 5.0. * Protein shakes with each meal (7) Hypokalemia: Code(s): E87.6 - Hypokalemia Status: Acute Assessment and Plan: Potassium 4.0 4/25 * keep K+ >4.0 * cardiac monitoring (8) Leukocytosis: Qualifiers: Leukocytosis type: leukemoid reaction Qualified Code(s): D72.823 - Leukemoid reaction Code(s): D72.829 - Elevated white blood cell count, unspecified Status: Resolved Assessment and Plan: Patient does have marked leukocytosis suspected to be due leukemoid reaction. No signs of infectious cause * Daily CBC resolving (9) Constipation: Code(s): K59.00 - Constipation, unspecified Status: Acute Assessment and Plan: * Miralax 17 gram PO daily and Docusate 100 mg PO Q 12. * Encourage water intake. Subjective Date/time seen: 08/25/24 11:36 Interval history: Patient lying in bed. Patient reports back pain is a 4 , constant, and aching. Patient reports feeling a little bloated and needing to have a bowel movement. Patient denies chest pain, palpitations, headaches, nausea, or vomiting. Review of Systems Review of Systems: All systems reviewed & are unremarkable except as noted in HPI and below Exam Const: General: no acute distress and uncomfortable Resp: Effort & Inspection: normal respiratory effort Auscultation: diminished lung sounds Cardio: Rhythm: regular rhythm (SR- 82 with multiform PVC's) GI: GI Palp: Yes Soft to palpation Auscultation: normal bowel sounds Other: Bloated. Neuro: General: gait normal Speech: normal speech Extrem: General: no pedal edema Psych: Mental Status: mental status grossly normal Affect: normal affect Objective Data Vital Signs Vital Signs: Vital Signs - 24 hr 08/24/24 12:00 08/24/24 14:00 08/24/24 16:00 Temperature 97.3 F L Pulse Rate 61 74 61 Respiratory Rate 16 Blood Pressure 101/52 L Pulse Oximetry 95 Oxygen Delivery Oxygen Flow Rate 08/24/24 20:00 08/24/24 20:30 08/24/24 21:37 Temperature Pulse Rate 60 Respiratory Rate Blood Pressure Pulse Oximetry 92 92 Oxygen Delivery High Flow Nasal Cannula Nasal Cannula Oxygen Flow Rate 6 6 08/24/24 21:47 08/25/24 00:00 08/25/24 04:12 Temperature 97.8 F Pulse Rate 60 55 L 53 L Respiratory Rate 22 H Blood Pressure 153/71 H Pulse Oximetry 93 Oxygen Delivery Oxygen Flow Rate 08/25/24 06:11 08/25/24 08:00 08/25/24 08:16 Temperature 97.9 F Pulse Rate 60 84 Respiratory Rate 20 Blood Pressure 120/74 Pulse Oximetry 100 96 Oxygen Delivery High Flow Nasal Cannula Oxygen Flow Rate 6 08/25/24 09:17 08/25/24 09:18 Temperature Pulse Rate 69 Respiratory Rate Blood Pressure Pulse Oximetry Oxygen Delivery High Flow Nasal Cannula Oxygen Flow Rate 6 Intake/Output Intake/Output: Intake & Output 08/22/24 08/23/24 08/24/24 08/25/24 23:59 23:59 23:59 23:59 Intake Total 1490 2587 1622 757 Output Total 104 4150 1350 710 Balance 740 -3917 272 47 Meds/Results Medications: Active Medications Generic Name Dose Route Start Last Admin Trade Name Freq PRN Reason Stop Dose Admin Hydrocodone Bitart/Acetaminophen 1 tab 08/19/24 20:00 08/24/24 10:25 Hydrocodone/Acetaminophen (*Crx) 10-325 Mg Tablet PO 1 tab Q8HR PRN Administration pain Albuterol 1 puff 08/19/24 11:11 Albuterol Sulfate (*Sp) Aerosol 1 Puff INHALATION QID PRN shortness of breath or wheezing Albuterol/Ipratropium 3 ml 08/19/24 11:11 Ipratropium 0.5 Mg/Albuterol Sulfate 2.5 Mg Ampul.Neb 3 Ml INHALATION QID PRN shortness of breath Atorvastatin Calcium 80 mg 08/20/24 09:00 08/25/24 09:17 Atorvastatin 40 Mg Tablet PO 80 mg DAILY SALAZAR Administration Citalopram Hydrobromide 40 mg 08/20/24 09:00 08/25/24 09:17 Citalopram Hydrobromide 20 Mg Tablet PO 40 mg DAILY SALAZAR Administration Docusate Sodium 100 mg 08/24/24 11:18 Docusate Sodium 100 Mg Capsule PO Q12H PRN Constipation Fluticasone/Umeclidinium/Vilanterol 1 puff 08/20/24 08:00 08/25/24 08:15 Fluticasone/Umeclidin/Vilanter 100-62.5-25 Mcg Ellipta INHALATION 1 puff DAILYRT SALAZAR Administration Furosemide 40 mg 08/20/24 09:00 08/22/24 08:15 Furosemide 40 Mg Tablet PO 40 mg DAILY SALAZAR Administration Iron Sucrose 400 mg/ Iron 275 mls @ 78.571 mls/hr 08/24/24 09:20 08/25/24 09:26 Sucrose 100 mg/ Sodium IVPB 08/25/24 12:29 78.57 mls/hr Chloride DAILY SALAZAR Administration Losartan Potassium 25 mg 08/20/24 09:00 08/22/24 08:15 Losartan Potassium 25 Mg Tablet PO 25 mg DAILY SALAZAR Administration Methocarbamol 750 mg 08/19/24 11:11 08/22/24 21:04 Methocarbamol 750 Mg Tablet PO 750 mg TID PRN Administration muscle spasm Metoprolol Succinate 25 mg 08/20/24 09:00 08/25/24 09:18 Metoprolol Succinate Ext Rel 25 Mg Tabcr PO 25 mg DAILY SALAZAR Administration Mirtazapine 15 mg 08/19/24 21:00 08/24/24 21:18 Mirtazapine 15 Mg Tablet BY MOUTH 15 mg HS SALAZAR Administration Ondansetron HCl 4 mg 08/20/24 08:16 08/20/24 08:52 Ondansetron Inj 4 Mg/2 Ml Vial IV PUSH 4 mg Q6H PRN Administration Nausea And Vomiting Pantoprazole Sodium 40 mg 08/23/24 21:00 08/25/24 09:18 Pantoprazole 40 Mg Tablet PO 40 mg Q12HR SALAZAR Administration Polyethylene Glycol 17 gm 08/24/24 11:20 08/25/24 09:18 Polyethylene Glycol 3350 17 Gm Powd.Pack PO 17 gm QAM SALAZAR Administration Prednisone 20 mg 08/19/24 11:15 08/25/24 09:17 Prednisone 20 Mg Tablet BY MOUTH 20 mg DAILY SALAZAR Administration Sildenafil Citrate 40 mg 08/19/24 13:00 08/25/24 09:17 Sildenafil Citrate 20 Mg Tablet PO 40 mg TID SALAZAR Administration Spironolactone 25 mg 08/20/24 09:00 08/22/24 08:15 Spironolactone 25 Mg Tablet PO 25 mg DAILY SALAZAR Administration Radiology Results: ITS Impressions Abdomen/Pelvis CT 08/18/24 07:00 IMPRESSION: 1. Fluid throughout much of the colon consistent nonspecific diarrhea which could be due to gastroenteritis or reported gastrointestinal bleed. There are 5 small foci of high attenuation within the ascending colon which are similar in density to the contrast in the colon which could represent foci of active extravasation although the multiplicity and dependent distribution would favor high attenuation material within the fecal stream. 2. Mild diffuse gallbladder wall thickening with mild stranding near the fundus but without dilation to more specifically suggest acute cholecystitis. This could be due to decompressed state or potentially chronic cholecystitis. Correlate clinically for Arora sign and if indicated could consider further evaluation with either right upper quadrant ultrasound or HIDA scan. 3. 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 4. Extensive atherosclerotic disease with multifocal severe stenosis along the left external, superficial femoral and deep femoral arteries and at the right deep femoral artery with moderate stenosis at the right superficial femoral artery. 5. Numerous compression and burst fractures from T9 through L5 sparing L2 and several which appear relatively recent and new since 05/29/2024. Chest X-Ray 08/23/24 13:31 Impression: Small right pleural effusion with probable bibasilar pulmonary edema/atelectasis. Correlate clinically for pneumonia. Labs Labs: Laboratory Results - last 24 hr 08/25/24 08/25/24 05:08 05:13 WBC 10.8 H RBC 3.25 L Hgb 9.2 L Hct 30.6 L MCV 94.2 MCH 28.3 MCHC 30.1 L RDW 22.9 H Plt Count 129 L MPV 10.3 Sodium 136 L Potassium 4.1 Chloride 108 H Carbon Dioxide 24 Anion Gap 4 BUN 13 Creatinine 0.73 Estim Creat Clear Calc 68 Estimated GFR > 60 Glucose 90 Calcium 8.1 L Magnesium 1.9 Total Bilirubin 1.3 AST 37 ALT 54 H Alkaline Phosphatase 141 H Total Protein 5.0 L Albumin 2.8 L Quality VTE Prophylaxis VTE prophylaxis: mechanical ordered (SCDs)
[2024-08-25] MEDS: DOCUSATE SODIUM 100 MG CAPSULE PO ×2 (12:58→21:48)
[2024-08-25] MEDS: MIRTAZAPINE 15 MG TABLET BY MOUTH (21:47)
[2024-08-26] VITALS (11 sets, daily range): BP systolic 93–123; BP diastolic 51–69; PULSE 65–87; RESP 18–20; TEMP 36–37.1; O2SAT 96–100
[2024-08-26 05:22] LABS: Hematocrit 29.6 % (42.0-52.0); Hemoglobin 8.8 g/dL (14.0-18.0); Mean Corpuscular HGB Conc 29.7 g/dl (32-36); Mean Corpuscular Hemoglobin 28.3 pg (26-34); Mean Corpuscular Volume 95.2 fl (80-100); Mean Platelet Volume 10.1 fl (7.4-10.4); Platelet Count Result 142 k/mm3 (150-375); Red Blood Count 3.11 M/mm3 (4.6-6.20); White Blood Count 11.9 K/mm3 (4.5-10.0)
[2024-08-26 05:34] LABS: Alanine Aminotransferase 59 U/L (6-50); Albumin Level 2.6 g/dL (3.5-5.1); Alkaline Phosphatase 154 U/L (38-126); Aspartate Amino Transferase 40 U/L (17-59); Blood Urea Nitrogen 13 mg/dL (9-20); Carbon Dioxide 27 mmol/L (22-30); Estimated CRCL calculation 64 ml/min; Estimated Glomerular Filt Rate > 60
[2024-08-26 05:37] LABS: Anion Gap 2 mmol/L (4-12); Bilirubin,Total 1.1 mg/dL (0.2-1.3); Calcium 7.8 mg/dL (8.4-10.2); Chloride 109 mmol/L (98-107); Glucose 91 mg/dL (65-110); Magnesium 1.9 mg/dL (1.6-2.3); Potassium 4.2 mmol/L (3.4-5.0); Sodium 138 mmol/L (137-145)
[2024-08-26] MEDS: FLUTICASONE/UMECLIDIN/VILANTER 100-62.5-25 MCG ELLIPTA 1 PUFF INHALATION (08:15)
[2024-08-26] MEDS: METOPROLOL SUCCINATE EXT REL 25 MG TABCR PO (09:05)
[2024-08-26] MEDS: polyethylene glycoL 3350 17 GM POWD.PACK PO (09:05)
[2024-08-26] MEDS: DOCUSATE SODIUM 100 MG CAPSULE PO ×2 (09:05→21:35)
[2024-08-26] MEDS: PANTOPRAZOLE 40 MG TABLET PO ×2 (09:05→21:35)
[2024-08-26] MEDS: predniSONE 20 MG TABLET BY MOUTH (09:05)
[2024-08-26] MEDS: CITALOPRAM HYDROBROMIDE 20 MG TABLET 40 MG PO (09:05)
[2024-08-26] MEDS: SILDENAFIL CITRATE 20 MG TABLET 40 MG PO ×3 (09:06→16:29)
[2024-08-26] MEDS: ATORVASTATIN 40 MG TABLET 80 MG PO (09:06)
[2024-08-26] MEDS: ALBUMIN HUMAN 25% 25 GM/100 ML 100 ML IVPB (09:51)
--- NOTE | 2024-08-26 10:27 | P.PNIM_ITS ---
Progress Note: A&P Assessment and Plan (1) Hemorrhagic shock: Code(s): R57.8 - Other shock Status: Acute Assessment and Plan: Patient has hemorrhagic shock due to upper GI bleed. Gastroenterology has been consulted. Patient received IV push Protonix 40 mg x 1 in the ER. Will given additional 40 mg IV and then initiate Protonix drip. At the time documentation CT ABD showed Fluid throughout much of the colon consistent nonspecific diarrhea which could be due to gastroenteritis or reported gastrointestinal bleed. There are 5 small foci of high attenuation within the ascending colon which are similar in density to the contrast in the colon which could represent foci of active extravasation although the multiplicity and dependent distribution would favor high attenuation material within the fecal stream.. Patient's blood pressures after 1 L of fluid and 1.5 units of blood has improved to 97/58. GI was consulted and he was taken for EGD showed bleeding ulcer which was caute rized, patient did have shortness of breath after the procedure and repeat hgb was stable. Hgb post procedure 8.8 following day 08/22 dropped to 7.0 repeat H&H pending and still moderately hypotensive. Patient Hgb increased to 7.8 but then dropped to 6.4 within 12 hours transfused 1 unit PRBC F/U 8.1. Patient with no BM or bloody emesis reported no overt signs of continued GIB but if hgb continues to drop my need another EGD for re-evaluation. Previous HX of iron deficiency anemia consulted hematology at least to get established will likely need continued iron transfusions and possible blood transfusions outpatient * Monitor H&H. Current 8.8/29.6. * Protonix BID * Transfuse 1 unit PRBC if Hgb <7.0 * Still with hypotension holding Lasix and spironolactone until BP tolerates * Hematology consult, appreciate recommendations. * Venofer 500 mg IVPB x 2 doses. (2) Acute upper gastrointestinal bleeding: Code(s): K92.2 - Gastrointestinal hemorrhage, unspecified Status: Acute Assessment and Plan: SEE Above (3) Acute blood loss anemia: Code(s): D62 - Acute posthemorrhagic anemia Status: Acute Assessment and Plan: SEE ABOVE (4) Chronic respiratory failure with hypoxia, on home oxygen therapy: Code(s): J96.11 - Chronic respiratory failure with hypoxia; Z99.81 - Dependence on supplemental oxygen Status: Chronic Assessment and Plan: Patient wears 6L supplemental oxygen at home, emphysema * Albuterol inhaler as needed * Currently on his 6 L (5) Combined systolic and diastolic cardiac dysfunction: Code(s): I51.89 - Other ill-defined heart diseases Status: Acute Assessment and Plan: Patient has combined systolic and diastolic heart failure as well as reduced right-sided cardiac output with severe pulmonary hypertension. Will need to monitor fluid status closely given these multiple factors. Currently patient is stable on his home O2. reported SOB, CXR with small pleural effusions mildly elevated BNP a single dose IV Lasix 20 mg IV push * Resume Lasix when BP tolerates * Continuous cardiac monitoring (6) Protein-calorie malnutrition, moderate: Code(s): E44.0 - Moderate protein-calorie malnutrition Status: Acute Assessment and Plan: Patient does have significant protein calorie malnutrition with low serum albumin. * Protein 5.0. * Protein shakes with each meal * Added Albumin today. (7) Hypokalemia: Code(s): E87.6 - Hypokalemia Status: Acute Assessment and Plan: Potassium 4.2 08/24 * keep K+ >4.0 * cardiac monitoring (8) Leukocytosis: Qualifiers: Leukocytosis type: leukemoid reaction Qualified Code(s): D72.823 - Leukemoid reaction Code(s): D72.829 - Elevated white blood cell count, unspecified Status: Resolved Assessment and Plan: Patient does have marked leukocytosis suspected to be due leukemoid reaction. No signs of infectious cause * Daily CBC resolving (9) Constipation: Code(s): K59.00 - Constipation, unspecified Status: Acute Assessment and Plan: * Miralax 17 gram PO daily and Docusate 100 mg PO Q 12. * Encourage water intake. (10) Compression fracture: Status: Acute Assessment and Plan: * CT showed: Numerous compression and burst fractures from T9 through L5 sparing L2 and several which appear relatively recent and new since 05/29/2024. * Ordered TLSO brace. * Pain control. * PT/OT Subjective Date/time seen: 08/26/24 10:27 Interval history: Patient lying in bed with family at bedside. Patient reports back pain is a 3 , constant, and aching. Patient reports feeling a little bloated and needing to have a bowel movement. Patient denies chest pain, palpitations, headaches, nausea, or vomiting. Patient concerned about building strength up to go home. Patient agreeable to try TLSO brace to see if it will help decrease pain while up so that he can get stronger and go home. Review of Systems Review of Systems: All systems reviewed & are unremarkable except as noted in HPI and below Exam Const: General: no acute distress and uncomfortable Resp: Effort & Inspection: normal respiratory effort Auscultation: diminished lung sounds Cardio: Rate: regular rate Rhythm: regular rhythm Other: Telemetry- SR 90. GI: GI Palp: Yes Soft to palpation Auscultation: normal bowel sounds Neuro: Speech: normal speech Extrem: General: no pedal edema Psych: Mental Status: mental status grossly normal Affect: normal affect Objective Data Vital Signs Vital Signs: Vital Signs - 24 hr 08/25/24 12:00 08/25/24 14:00 08/25/24 16:00 Temperature 98.5 F Pulse Rate 65 74 78 Respiratory Rate 16 Blood Pressure 95/53 L Pulse Oximetry 94 Oxygen Delivery Oxygen Flow Rate Fraction of Inspired Oxygen 08/25/24 17:04 08/25/24 20:05 08/25/24 20:12 Temperature 98.5 F Pulse Rate 73 Respiratory Rate 18 Blood Pressure 96/50 L 109/60 Pulse Oximetry 95 95 Oxygen Delivery Nasal Cannula Oxygen Flow Rate 6 Fraction of Inspired Oxygen 08/25/24 20:27 08/25/24 20:47 08/26/24 00:00 Temperature Pulse Rate 87 72 71 Respiratory Rate Blood Pressure Pulse Oximetry 95 Oxygen Delivery High Flow Nasal Cannula Oxygen Flow Rate 6 Fraction of Inspired Oxygen 08/26/24 04:09 08/26/24 06:00 08/26/24 08:00 Temperature 96.8 F L Pulse Rate 87 65 Respiratory Rate 18 Blood Pressure 123/69 Pulse Oximetry 100 97 Oxygen Delivery High Flow Nasal Cannula Oxygen Flow Rate 6 Fraction of Inspired Oxygen 08/26/24 08:00 08/26/24 08:15 08/26/24 08:15 Temperature Pulse Rate 66 82 Respiratory Rate 20 Blood Pressure Pulse Oximetry 100 Oxygen Delivery High Flow Nasal Cannula Oxygen Flow Rate 6 Fraction of Inspired Oxygen 44 08/26/24 09:05 Temperature Pulse Rate 82 Respiratory Rate Blood Pressure Pulse Oximetry Oxygen Delivery Oxygen Flow Rate Fraction of Inspired Oxygen Intake/Output Intake/Output: Intake & Output 08/23/24 08/24/24 08/25/24 08/26/24 23:59 23:59 23:59 23:59 Intake Total 2737 1622 1217 240 Output Total 4150 7497 599 6358 Balance -1413 272 503 -655 Meds/Results Medications: Active Medications Generic Name Dose Route Start Last Admin Trade Name Freq PRN Reason Stop Dose Admin Hydrocodone Bitart/Acetaminophen 1 tab 08/19/24 20:00 08/24/24 10:25 Hydrocodone/Acetaminophen (*Crx) 10-325 Mg Tablet PO 1 tab Q8HR PRN Administration pain Albuterol 1 puff 08/19/24 11:11 Albuterol Sulfate (*Sp) Aerosol 1 Puff INHALATION QID PRN shortness of breath or wheezing Albuterol/Ipratropium 3 ml 08/19/24 11:11 Ipratropium 0.5 Mg/Albuterol Sulfate 2.5 Mg Ampul.Neb 3 Ml INHALATION QID PRN shortness of breath Atorvastatin Calcium 80 mg 08/20/24 09:00 08/26/24 09:06 Atorvastatin 40 Mg Tablet PO 80 mg DAILY SALAZAR Administration Citalopram Hydrobromide 40 mg 08/20/24 09:00 08/26/24 09:05 Citalopram Hydrobromide 20 Mg Tablet PO 40 mg DAILY SALAZAR Administration Docusate Sodium 100 mg 08/25/24 21:00 08/26/24 09:05 Docusate Sodium 100 Mg Capsule PO 100 mg Q12H SALAZAR Administration Fluticasone/Umeclidinium/Vilanterol 1 puff 08/20/24 08:00 08/26/24 08:15 Fluticasone/Umeclidin/Vilanter 100-62.5-25 Mcg Ellipta INHALATION 1 puff DAILYRT SALAZAR Administration Furosemide 40 mg 08/20/24 09:00 08/22/24 08:15 Furosemide 40 Mg Tablet PO 40 mg DAILY SALAZAR Administration Albumin Human 100 mls @ 60 mls/hr 08/26/24 09:08 08/26/24 09:51 Albutein IVPB 08/26/24 10:47 60 mls/hr ONCE ONE Administration Losartan Potassium 25 mg 08/20/24 09:00 08/22/24 08:15 Losartan Potassium 25 Mg Tablet PO 25 mg DAILY SALAZAR Administration Methocarbamol 750 mg 08/19/24 11:11 08/22/24 21:04 Methocarbamol 750 Mg Tablet PO 750 mg TID PRN Administration muscle spasm Metoprolol Succinate 25 mg 08/20/24 09:00 08/26/24 09:05 Metoprolol Succinate Ext Rel 25 Mg Tabcr PO 25 mg DAILY SALAZAR Administration Mirtazapine 15 mg 08/19/24 21:00 08/25/24 21:47 Mirtazapine 15 Mg Tablet BY MOUTH 15 mg HS SALAZAR Administration Ondansetron HCl 4 mg 08/20/24 08:16 08/20/24 08:52 Ondansetron Inj 4 Mg/2 Ml Vial IV PUSH 4 mg Q6H PRN Administration Nausea And Vomiting Pantoprazole Sodium 40 mg 08/23/24 21:00 08/26/24 09:05 Pantoprazole 40 Mg Tablet PO 40 mg Q12HR SALAZAR Administration Polyethylene Glycol 17 gm 08/24/24 11:20 08/26/24 09:05 Polyethylene Glycol 3350 17 Gm Powd.Pack PO 17 gm QAM SALAZAR Administration Prednisone 20 mg 08/19/24 11:15 08/26/24 09:05 Prednisone 20 Mg Tablet BY MOUTH 20 mg DAILY SALAZAR Administration Sildenafil Citrate 40 mg 08/19/24 13:00 08/26/24 09:06 Sildenafil Citrate 20 Mg Tablet PO 40 mg TID SALAZAR Administration Spironolactone 25 mg 08/20/24 09:00 08/22/24 08:15 Spironolactone 25 Mg Tablet PO 25 mg DAILY SALAZAR Administration Radiology Results: ITS Impressions Abdomen/Pelvis CT 08/18/24 07:00 IMPRESSION: 1. Fluid throughout much of the colon consistent nonspecific diarrhea which could be due to gastroenteritis or reported gastrointestinal bleed. There are 5 small foci of high attenuation within the ascending colon which are similar in density to the contrast in the colon which could represent foci of active extravasation although the multiplicity and dependent distribution would favor high attenuation material within the fecal stream. 2. Mild diffuse gallbladder wall thickening with mild stranding near the fundus but without dilation to more specifically suggest acute cholecystitis. This could be due to decompressed state or potentially chronic cholecystitis. Correlate clinically for Arora sign and if indicated could consider further evaluation with either right upper quadrant ultrasound or HIDA scan. 3. 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 4. Extensive atherosclerotic disease with multifocal severe stenosis along the left external, superficial femoral and deep femoral arteries and at the right deep femoral artery with moderate stenosis at the right superficial femoral artery. 5. Numerous compression and burst fractures from T9 through L5 sparing L2 and several which appear relatively recent and new since 05/29/2024. Chest X-Ray 08/23/24 13:31 Impression: Small right pleural effusion with probable bibasilar pulmonary edema/atelectasis. Correlate clinically for pneumonia. Labs Labs: Laboratory Results - last 24 hr 08/26/24 05:12 WBC 11.9 H RBC 3.11 L Hgb 8.8 L Hct 29.6 L MCV 95.2 MCH 28.3 MCHC 29.7 L RDW 23.0 H Plt Count 142 L MPV 10.1 Sodium 138 Potassium 4.2 Chloride 109 H Carbon Dioxide 27 Anion Gap 2 L BUN 13 Creatinine 0.78 Estim Creat Clear Calc 64 Estimated GFR > 60 Glucose 91 Calcium 7.8 L Magnesium 1.9 Total Bilirubin 1.1 AST 40 ALT 59 H Alkaline Phosphatase 154 H Total Protein 5.0 L Albumin 2.6 L Quality VTE Prophylaxis VTE prophylaxis: mechanical ordered (SCDs)
--- NOTE | 2024-08-26 13:11 | P.PNONC_ITS ---
Progress Note: A&P Assessment and Plan (1) Acute on chronic anemia: Code(s): D64.9 - Anemia, unspecified Status: Acute Assessment and Plan: Patient with acute on chronic anemia due to GI bleeding. EGD has shown a large ulcer in stomach incisura. He underwent cauterization and epinephrine injection to the ulcer. He is also on IV Protonix. Patient has been started on oral iron here in during this hospitalization. Hematology advise against doing oral iron because it can irritate the ulcer. I recommended that oral iron to be stopped as it may be aggravating the ulcer and since then it has been stopped. Patient received iron sucrose 400 mg on 08/24/2024 and on 08/25/24. Today hemoglobin is 8.8 and stable. I would like to wait for one more day to observe the stability of hemoglobin prior to discharge. Thrombocytopenia- Additionally noted is thrombocytopenia since admission. Patient presented with a platelet count of 302 K and over the course of last few days platelets has been slowly decreasing and platelet count was at its lowest at 100 K on 08/23/2024. Today the platelet count is 142 K. it could be that he may have had exposure to allo- antibodies to platelets from donated blood. No need for any intervention. Subjective Date/time seen: 08/26/24 13:11 Interval history: Patient is resting well and had no overnight events. He is hoping he can be discharged tomorrow to [facility] for rehab. Review of Systems Review of Systems Patient reports he is feeling better. He has received 2 units of blood so far since admission. States that he is accepted at a rehab place of his choice and it anticipating rehab before he goes home. States that he has COPD which also restricts his mobility. States that he is very cold all the time. He denies any chest pain but has exertional shortness of breath. He denies any fever, chills, night sweats. No abdominal pain. No diarrhea. Since admission he also denies any hematemesis, hematochezia, melena. Rest of 12 point review of system is negative. Exam Narrative: Alert and oriented x3 very pleasant male in no acute distress ill-appearing. HEENT: eyes are clear and none icteric LUNGS:CTAB HEART: RR S1S2 ABD: BS+, Soft and nontender Lower extremities: no edema SKIN: nonjaundiced Neuro: grossly intact. Objective Data Vital Signs Vital Signs: Vital Signs - 24 hr 08/25/24 14:00 08/25/24 16:00 08/25/24 17:04 Temperature 36.9 C Pulse Rate 74 78 Respiratory Rate 16 Blood Pressure 95/53 L 96/50 L Pulse Oximetry 94 Oxygen Delivery Oxygen Flow Rate Fraction of Inspired Oxygen 08/25/24 20:05 08/25/24 20:12 08/25/24 20:27 Temperature 36.9 C Pulse Rate 73 87 Respiratory Rate 18 Blood Pressure 109/60 Pulse Oximetry 95 95 Oxygen Delivery Nasal Cannula Oxygen Flow Rate 6 Fraction of Inspired Oxygen 08/25/24 20:47 08/26/24 00:00 08/26/24 04:09 Temperature Pulse Rate 72 71 87 Respiratory Rate Blood Pressure Pulse Oximetry 95 Oxygen Delivery High Flow Nasal Cannula Oxygen Flow Rate 6 Fraction of Inspired Oxygen 08/26/24 06:00 08/26/24 08:00 08/26/24 08:00 Temperature 36.0 C L Pulse Rate 65 66 Respiratory Rate 18 Blood Pressure 123/69 Pulse Oximetry 100 97 Oxygen Delivery High Flow Nasal Cannula Oxygen Flow Rate 6 Fraction of Inspired Oxygen 08/26/24 08:15 08/26/24 08:15 08/26/24 09:05 Temperature Pulse Rate 82 82 Respiratory Rate 20 Blood Pressure Pulse Oximetry 100 Oxygen Delivery High Flow Nasal Cannula Oxygen Flow Rate 6 Fraction of Inspired Oxygen 44 08/26/24 12:00 Temperature Pulse Rate 77 Respiratory Rate Blood Pressure Pulse Oximetry Oxygen Delivery Oxygen Flow Rate Fraction of Inspired Oxygen Intake/Output Intake/Output: Intake & Output 08/23/24 08/24/24 08/25/24 08/26/24 23:59 23:59 23:59 23:59 Intake Total 2737 1622 1217 340 Output Total 4150 2508 071 6315 Balance -1413 528 579 -213 Meds/Results Medications: Active Medications Generic Name Dose Route Start Last Admin Trade Name Freq PRN Reason Stop Dose Admin Hydrocodone Bitart/Acetaminophen 1 tab 08/19/24 20:00 08/24/24 10:25 Hydrocodone/Acetaminophen (*Crx) 10-325 Mg Tablet PO 1 tab Q8HR PRN Administration pain Albuterol 1 puff 08/19/24 11:11 Albuterol Sulfate (*Sp) Aerosol 1 Puff INHALATION QID PRN shortness of breath or wheezing Albuterol/Ipratropium 3 ml 08/19/24 11:11 Ipratropium 0.5 Mg/Albuterol Sulfate 2.5 Mg Ampul.Neb 3 Ml INHALATION QID PRN shortness of breath Atorvastatin Calcium 80 mg 08/20/24 09:00 08/26/24 09:06 Atorvastatin 40 Mg Tablet PO 80 mg DAILY SALAZAR Administration Citalopram Hydrobromide 40 mg 08/20/24 09:00 08/26/24 09:05 Citalopram Hydrobromide 20 Mg Tablet PO 40 mg DAILY SALAZAR Administration Docusate Sodium 100 mg 08/25/24 21:00 08/26/24 09:05 Docusate Sodium 100 Mg Capsule PO 100 mg Q12H SALAZAR Administration Fluticasone/Umeclidinium/Vilanterol 1 puff 08/20/24 08:00 08/26/24 08:15 Fluticasone/Umeclidin/Vilanter 100-62.5-25 Mcg Ellipta INHALATION 1 puff DAILYRT SALAZAR Administration Furosemide 40 mg 08/20/24 09:00 08/22/24 08:15 Furosemide 40 Mg Tablet PO 40 mg DAILY SALAZAR Administration Losartan Potassium 25 mg 08/20/24 09:00 08/22/24 08:15 Losartan Potassium 25 Mg Tablet PO 25 mg DAILY SALAZAR Administration Methocarbamol 750 mg 08/19/24 11:11 08/22/24 21:04 Methocarbamol 750 Mg Tablet PO 750 mg TID PRN Administration muscle spasm Metoprolol Succinate 25 mg 08/20/24 09:00 08/26/24 09:05 Metoprolol Succinate Ext Rel 25 Mg Tabcr PO 25 mg DAILY SALAZAR Administration Mirtazapine 15 mg 08/19/24 21:00 08/25/24 21:47 Mirtazapine 15 Mg Tablet BY MOUTH 15 mg HS SALAZAR Administration Ondansetron HCl 4 mg 08/20/24 08:16 08/20/24 08:52 Ondansetron Inj 4 Mg/2 Ml Vial IV PUSH 4 mg Q6H PRN Administration Nausea And Vomiting Pantoprazole Sodium 40 mg 08/23/24 21:00 08/26/24 09:05 Pantoprazole 40 Mg Tablet PO 40 mg Q12HR SALAZAR Administration Polyethylene Glycol 17 gm 08/24/24 11:20 08/26/24 09:05 Polyethylene Glycol 3350 17 Gm Powd.Pack PO 17 gm QAM SALAZAR Administration Prednisone 20 mg 08/19/24 11:15 08/26/24 09:05 Prednisone 20 Mg Tablet BY MOUTH 20 mg DAILY SALAZAR Administration Sildenafil Citrate 40 mg 08/19/24 13:00 08/26/24 12:27 Sildenafil Citrate 20 Mg Tablet PO 40 mg TID SALAZAR Administration Spironolactone 25 mg 08/20/24 09:00 08/22/24 08:15 Spironolactone 25 Mg Tablet PO 25 mg DAILY SALAZAR Administration Radiology Results: ITS Impressions Abdomen/Pelvis CT 08/18/24 07:00 IMPRESSION: 1. Fluid throughout much of the colon consistent nonspecific diarrhea which could be due to gastroenteritis or reported gastrointestinal bleed. There are 5 small foci of high attenuation within the ascending colon which are similar in density to the contrast in the colon which could represent foci of active extravasation although the multiplicity and dependent distribution would favor high attenuation material within the fecal stream. 2. Mild diffuse gallbladder wall thickening with mild stranding near the fundus but without dilation to more specifically suggest acute cholecystitis. This could be due to decompressed state or potentially chronic cholecystitis. Correlate clinically for Arora sign and if indicated could consider further evaluation with either right upper quadrant ultrasound or HIDA scan. 3. 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 4. Extensive atherosclerotic disease with multifocal severe stenosis along the left external, superficial femoral and deep femoral arteries and at the right deep femoral artery with moderate stenosis at the right superficial femoral artery. 5. Numerous compression and burst fractures from T9 through L5 sparing L2 and several which appear relatively recent and new since 05/29/2024. Chest X-Ray 08/23/24 13:31 Impression: Small right pleural effusion with probable bibasilar pulmonary edema/atelectasis. Correlate clinically for pneumonia. Labs Labs: Laboratory Results - last 24 hr 08/26/24 05:12 WBC 11.9 H RBC 3.11 L Hgb 8.8 L Hct 29.6 L MCV 95.2 MCH 28.3 MCHC 29.7 L RDW 23.0 H Plt Count 142 L MPV 10.1 Sodium 138 Potassium 4.2 Chloride 109 H Carbon Dioxide 27 Anion Gap 2 L BUN 13 Creatinine 0.78 Estim Creat Clear Calc 64 Estimated GFR > 60 Glucose 91 Calcium 7.8 L Magnesium 1.9 Total Bilirubin 1.1 AST 40 ALT 59 H Alkaline Phosphatase 154 H Total Protein 5.0 L Albumin 2.6 L
[2024-08-26] MEDS: HYDROcodone/acetaminophen (*CRX) 10-325 MG TABLET 1 TAB PO (21:35)
[2024-08-26] MEDS: methocarbamoL 750 MG TABLET PO (21:35)
[2024-08-26] MEDS: MIRTAZAPINE 15 MG TABLET BY MOUTH (21:36)
[2024-08-27] VITALS (10 sets, daily range): BP systolic 123–148; BP diastolic 69–73; PULSE 49–89; RESP 16–18; TEMP 36.4–36.6; O2SAT 97–100
[2024-08-27 05:48] LABS: Hematocrit 29.9 % (42.0-52.0); Hemoglobin 8.5 g/dL (14.0-18.0); Mean Corpuscular HGB Conc 28.4 g/dl (32-36); Mean Corpuscular Hemoglobin 28.8 pg (26-34); Mean Corpuscular Volume 101.4 fl (80-100); Mean Platelet Volume 10.4 fl (7.4-10.4); Platelet Count Result 152 k/mm3 (150-375); Red Blood Count 2.95 M/mm3 (4.6-6.20); Red Cell Distribution Width 23.2 % (11.5-14.5); White Blood Count 9.2 K/mm3 (4.5-10.0)
[2024-08-27 06:06] LABS: Alanine Aminotransferase 61 U/L (6-50); Albumin Level 2.8 g/dL (3.5-5.1); Alkaline Phosphatase 124 U/L (38-126); Anion Gap 6 mmol/L (4-12); Aspartate Amino Transferase 41 U/L (17-59); Bilirubin,Total 1.4 mg/dL (0.2-1.3); Blood Urea Nitrogen 11 mg/dL (9-20); Calcium 7.7 mg/dL (8.4-10.2); Carbon Dioxide 23 mmol/L (22-30); Chloride 109 mmol/L (98-107); Estimated CRCL calculation 73 ml/min; Estimated Glomerular Filt Rate > 60; Glucose 86 mg/dL (65-110); Potassium 3.6 mmol/L (3.4-5.0); Sodium 138 mmol/L (137-145)
--- NOTE | 2024-08-27 07:30 | PM.IMPN ---
Subjective Date/time seen: 08/27/24 Interval history: today info Review of Systems Review of Systems: All systems reviewed & are unremarkable except as noted in HPI and below Objective Data Vital Signs Vital Signs: Vital Signs - 24 hr 08/26/24 08:00 08/26/24 08:00 08/26/24 08:15 Temperature Pulse Rate 66 Respiratory Rate Blood Pressure Pulse Oximetry 97 100 Oxygen Delivery High Flow Nasal Cannula High Flow Nasal Cannula Oxygen Flow Rate 6 6 Fraction of Inspired Oxygen 44 08/26/24 08:15 08/26/24 09:05 08/26/24 12:00 Temperature Pulse Rate 82 82 77 Respiratory Rate 20 Blood Pressure Pulse Oximetry Oxygen Delivery Oxygen Flow Rate Fraction of Inspired Oxygen 08/26/24 14:00 08/26/24 16:00 08/26/24 20:00 Temperature 98.5 F Pulse Rate 66 78 Respiratory Rate 18 Blood Pressure 93/51 L Pulse Oximetry 97 96 Oxygen Delivery High Flow Nasal Cannula Oxygen Flow Rate 6 Fraction of Inspired Oxygen 08/26/24 20:00 08/26/24 20:14 08/27/24 00:00 Temperature 98.8 F Pulse Rate 65 75 57 L Respiratory Rate 18 Blood Pressure 103/59 L Pulse Oximetry 98 Oxygen Delivery Oxygen Flow Rate Fraction of Inspired Oxygen 08/27/24 04:00 08/27/24 04:57 Temperature 97.9 F Pulse Rate 49 L 60 Respiratory Rate 18 Blood Pressure 123/73 Pulse Oximetry 100 Oxygen Delivery Oxygen Flow Rate Fraction of Inspired Oxygen Intake/Output Intake/Output: Intake & Output 08/24/24 08/25/24 08/26/24 08/27/24 23:59 23:59 23:59 23:59 Intake Total 1622 1217 1120 Output Total 9689 641 1640 600 Balance 272 722 -835 -152 Meds/Results Medications: Active Medications Generic Name Dose Route Start Last Admin Trade Name Freq PRN Reason Stop Dose Admin Hydrocodone Bitart/Acetaminophen 1 tab 08/19/24 20:00 08/26/24 21:35 Hydrocodone/Acetaminophen (*Crx) 10-325 Mg Tablet PO 1 tab Q8HR PRN Administration pain Albuterol 1 puff 08/19/24 11:11 Albuterol Sulfate (*Sp) Aerosol 1 Puff INHALATION QID PRN shortness of breath or wheezing Albuterol/Ipratropium 3 ml 08/19/24 11:11 Ipratropium 0.5 Mg/Albuterol Sulfate 2.5 Mg Ampul.Neb 3 Ml INHALATION QID PRN shortness of breath Atorvastatin Calcium 80 mg 08/20/24 09:00 08/26/24 09:06 Atorvastatin 40 Mg Tablet PO 80 mg DAILY SALAZAR Administration Citalopram Hydrobromide 40 mg 08/20/24 09:00 08/26/24 09:05 Citalopram Hydrobromide 20 Mg Tablet PO 40 mg DAILY SALAZAR Administration Docusate Sodium 100 mg 08/25/24 21:00 08/26/24 21:35 Docusate Sodium 100 Mg Capsule PO 100 mg Q12H SALAZAR Administration Fluticasone/Umeclidinium/Vilanterol 1 puff 08/20/24 08:00 08/26/24 08:15 Fluticasone/Umeclidin/Vilanter 100-62.5-25 Mcg Ellipta INHALATION 1 puff DAILYRT SALAZAR Administration Furosemide 40 mg 08/20/24 09:00 08/22/24 08:15 Furosemide 40 Mg Tablet PO 40 mg DAILY SALAZAR Administration Losartan Potassium 25 mg 08/20/24 09:00 08/22/24 08:15 Losartan Potassium 25 Mg Tablet PO 25 mg DAILY SALAZAR Administration Methocarbamol 750 mg 08/19/24 11:11 08/26/24 21:35 Methocarbamol 750 Mg Tablet PO 750 mg TID PRN Administration muscle spasm Metoprolol Succinate 25 mg 08/20/24 09:00 08/26/24 09:05 Metoprolol Succinate Ext Rel 25 Mg Tabcr PO 25 mg DAILY SALAZAR Administration Mirtazapine 15 mg 08/19/24 21:00 08/26/24 21:36 Mirtazapine 15 Mg Tablet BY MOUTH 15 mg HS SALAZAR Administration Ondansetron HCl 4 mg 08/20/24 08:16 08/20/24 08:52 Ondansetron Inj 4 Mg/2 Ml Vial IV PUSH 4 mg Q6H PRN Administration Nausea And Vomiting Pantoprazole Sodium 40 mg 08/23/24 21:00 08/26/24 21:35 Pantoprazole 40 Mg Tablet PO 40 mg Q12HR SALAZAR Administration Polyethylene Glycol 17 gm 08/24/24 11:20 08/26/24 09:05 Polyethylene Glycol 3350 17 Gm Powd.Pack PO 17 gm QAM SALAZAR Administration Prednisone 20 mg 08/19/24 11:15 08/26/24 09:05 Prednisone 20 Mg Tablet BY MOUTH 20 mg DAILY SALAZAR Administration Sildenafil Citrate 40 mg 08/19/24 13:00 08/26/24 16:29 Sildenafil Citrate 20 Mg Tablet PO 40 mg TID SALAZAR Administration Spironolactone 25 mg 08/20/24 09:00 08/22/24 08:15 Spironolactone 25 Mg Tablet PO 25 mg DAILY SALAZAR Administration Radiology Results: ITS Impressions Abdomen/Pelvis CT 08/18/24 07:00 IMPRESSION: 1. Fluid throughout much of the colon consistent nonspecific diarrhea which could be due to gastroenteritis or reported gastrointestinal bleed. There are 5 small foci of high attenuation within the ascending colon which are similar in density to the contrast in the colon which could represent foci of active extravasation although the multiplicity and dependent distribution would favor high attenuation material within the fecal stream. 2. Mild diffuse gallbladder wall thickening with mild stranding near the fundus but without dilation to more specifically suggest acute cholecystitis. This could be due to decompressed state or potentially chronic cholecystitis. Correlate clinically for Arora sign and if indicated could consider further evaluation with either right upper quadrant ultrasound or HIDA scan. 3. 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 4. Extensive atherosclerotic disease with multifocal severe stenosis along the left external, superficial femoral and deep femoral arteries and at the right deep femoral artery with moderate stenosis at the right superficial femoral artery. 5. Numerous compression and burst fractures from T9 through L5 sparing L2 and several which appear relatively recent and new since 05/29/2024. Chest X-Ray 08/23/24 13:31 Impression: Small right pleural effusion with probable bibasilar pulmonary edema/atelectasis. Correlate clinically for pneumonia. Labs Labs: Laboratory Results - last 24 hr 08/27/24 05:33 WBC 9.2 RBC 2.95 L Hgb 8.5 L Hct 29.9 L MCV 101.4 H D MCH 28.8 MCHC 28.4 L RDW 23.2 H Plt Count 152 MPV 10.4 Sodium 138 Potassium 3.6 Chloride 109 H Carbon Dioxide 23 Anion Gap 6 BUN 11 Creatinine 0.68 L Estim Creat Clear Calc 73 Estimated GFR > 60 Glucose 86 Calcium 7.7 L Magnesium 2.0 Total Bilirubin 1.4 H AST 41 ALT 61 H Alkaline Phosphatase 124 Total Protein 5.0 L Albumin 2.8 L
--- NOTE | 2024-08-27 07:41 | P.PNIM_ITS ---
Progress Note: A&P Assessment and Plan (1) Hemorrhagic shock: Code(s): R57.8 - Other shock Status: Acute Assessment and Plan: Patient has hemorrhagic shock due to upper GI bleed. Gastroenterology has been consulted. Patient received IV push Protonix 40 mg x 1 in the ER. Will given additional 40 mg IV and then initiate Protonix drip. At the time documentation CT ABD showed Fluid throughout much of the colon consistent nonspecific diarrhea which could be due to gastroenteritis or reported gastrointestinal bleed. There are 5 small foci of high attenuation within the ascending colon which are similar in density to the contrast in the colon which could represent foci of active extravasation although the multiplicity and dependent distribution would favor high attenuation material within the fecal stream. Patient's blood pressures after 1 L of fluid and 1.5 units of blood has improved to 97/58. GI was consulted and he was taken for EGD showed bleeding ulcer which was cauteri zed, patient did have shortness of breath after the procedure and repeat hgb was stable. Hgb post procedure 8.8 following day 08/22 dropped to 7.0 repeat H&H pending and still moderately hypotensive. Patient Hgb increased to 7.8 but then dropped to 6.4 within 12 hours transfused 1 unit PRBC F/U 8.1. Patient with no BM or bloody emesis reported no overt signs of continued GIB but if hgb continues to drop may need another EGD for re-evaluation. Previous HX of iron deficiency anemia consulted hematology at least to get established will likely need continued iron transfusions and possible blood transfusions outpatient * Monitor H&H. Current 8.09/27.9 - heme cleared pt based off these 08/27 AM labs, one more lab trend AM of 08/28 * Protonix BID * Transfuse 1 unit PRBC if Hgb <7.0 * BP more stable today at 123/73 & then 148/71, holding Lasix due to low K (3.2) but administering a dose of spironolactone today to help with mild SOB * Hematology consult, appreciate recommendations and clearance * Venofer 500 mg IVPB x 2 doses * Per GI consult: repeat EGD in 3-4 months to assess healing * Pt to discuss continued ASA 81mg use with PCP (has not been given this admission) for prophylaxis (2) Acute upper gastrointestinal bleeding: Code(s): K92.2 - Gastrointestinal hemorrhage, unspecified Status: Acute Assessment and Plan: See Above (3) Acute blood loss anemia: Code(s): D62 - Acute posthemorrhagic anemia Status: Acute Assessment and Plan: See above (4) Chronic respiratory failure with hypoxia, on home oxygen therapy: Code(s): J96.11 - Chronic respiratory failure with hypoxia; Z99.81 - Dependence on supplemental oxygen Status: Chronic Assessment and Plan: Patient wears 6L supplemental oxygen at home, emphysema * Albuterol inhaler/neb as needed, Krystin daily * Currently on his 6 L high flow O2 (5) Combined systolic and diastolic cardiac dysfunction: Code(s): I51.89 - Other ill-defined heart diseases Status: Acute Assessment and Plan: Patient has combined systolic and diastolic heart failure as well as reduced right-sided cardiac output with severe pulmonary hypertension. Will need to monitor fluid status closely given these multiple factors. Currently patient is stable on his home O2. reported mild SOB, CXR with small pleural effusions mildly elevated BNP a single dose IV Lasix 20 mg IV push * Resumed spironolactone today given mild SOB and stable BP * Resume Lasix when K stable * Continuous cardiac monitoring (6) Protein-calorie malnutrition, moderate: Code(s): E44.0 - Moderate protein-calorie malnutrition Status: Acute Assessment and Plan: Patient does have significant protein calorie malnutrition with low serum albumin. * Protein 5.0. * Protein shakes with each meal - ensure clear at the bedside today * x1 dose 25mg Albumin given 08/26 (x2 doses given 08/22) * x1 more Albumin 25mg dose ordered for today (7) Hypokalemia: Code(s): E87.6 - Hypokalemia Status: Acute Assessment and Plan: Potassium 3.6 08/27 (hemolyzed) - redraw yielded 3.2 * keep K+ >4.0 * cardiac monitoring * 40meq K PO after low lab today, repeat K trend with 08/28 AM labs (8) Leukocytosis: Qualifiers: Leukocytosis type: leukemoid reaction Qualified Code(s): D72.823 - Leukemoid reaction Code(s): D72.829 - Elevated white blood cell count, unspecified Status: Resolved Assessment and Plan: Patient does have marked leukocytosis suspected to be due leukemoid reaction. No signs of infectious cause * Daily CBC resolving - WDL 08/27 9.2 (9) Constipation: Code(s): K59.00 - Constipation, unspecified Status: Acute Assessment and Plan: * Miralax 17 gram PO daily and Docusate 100 mg PO Q 12. * Encourage water intake. * Last BM 08/25 (10) Compression fracture: Status: Acute Assessment and Plan: * CT showed: Numerous compression and burst fractures from T9 through L5 sparing L2 and several which appear relatively recent and new since 05/29/2024. * D/C TLSO brace due to pt saying that he already had this brace at home * Pain control. * PT/OT * D/C tomorrow pending [facility] labs to rehab for more therapy Subjective Date/time seen: 08/27/24 1040 Interval history: Pt lying in chair, just having finished therapy. Pt on baseline 6L NC. Pt reports that he is feeling OK . When asked about his back pain and the ordered TLSO brace, pt states that he D/C the order for the brace due to remembering that he has one at home already and it helps. Pt's main concern today is getting stronger so that his does not have to take care of him totally when he goes home. Pt last BM x2 days ago. Denies any acute issues other than some mild SOB s/p therapy, per nursing, giving neb soon (ordered as PRN). Pt cleared via care coordination to d/c to [place]/rehab ([facility]) today, hematology also cleared pt due to stable H/S this AM (spoke to them on the telephone). Pt prefers to stay here x1 more day to build up additional strength. 08/27 AM Potassium 3.6 but hemolyzed. Re-check yielded 3.2. Pt asymptomatic. 40meq PO given, re-draw labs in AM. Given slight SOB and stable BP, restart spironolactone, continue to hold furosemide. Review of Systems Review of Systems: All systems reviewed & are unremarkable except as noted in HPI and below Constitutional: Constitutional: Reports as per HPI Musculoskeletal: Musculoskeletal: Reports back pain Exam Const: General: no acute distress and uncomfortable Other: chronic back pain, just finishing therapy Resp: Effort & Inspection: normal respiratory effort Auscultation: diminished lung sounds Cardio: Rate: regular rate Rhythm: regular rhythm GI: Auscultation: normal bowel sounds Skin: General skin exam: normal color Neuro: Speech: normal speech Extrem: General: normal to inspection Other: no pedal edema Psych: Mental Status: mental status grossly normal Affect: normal affect Objective Data Vital Signs Vital Signs: Vital Signs - 24 hr 08/26/24 08:00 08/26/24 08:00 08/26/24 08:15 Temperature Pulse Rate 66 Respiratory Rate Blood Pressure Pulse Oximetry 97 100 Oxygen Delivery High Flow Nasal Cannula High Flow Nasal Cannula Oxygen Flow Rate 6 6 Fraction of Inspired Oxygen 44 08/26/24 08:15 08/26/24 09:05 08/26/24 12:00 Temperature Pulse Rate 82 82 77 Respiratory Rate 20 Blood Pressure Pulse Oximetry Oxygen Delivery Oxygen Flow Rate Fraction of Inspired Oxygen 08/26/24 14:00 08/26/24 16:00 08/26/24 20:00 Temperature 98.5 F Pulse Rate 66 78 Respiratory Rate 18 Blood Pressure 93/51 L Pulse Oximetry 97 96 Oxygen Delivery High Flow Nasal Cannula Oxygen Flow Rate 6 Fraction of Inspired Oxygen 08/26/24 20:00 08/26/24 20:14 08/27/24 00:00 Temperature 98.8 F Pulse Rate 65 75 57 L Respiratory Rate 18 Blood Pressure 103/59 L Pulse Oximetry 98 Oxygen Delivery Oxygen Flow Rate Fraction of Inspired Oxygen 08/27/24 04:00 08/27/24 04:57 Temperature 97.9 F Pulse Rate 49 L 60 Respiratory Rate 18 Blood Pressure 123/73 Pulse Oximetry 100 Oxygen Delivery Oxygen Flow Rate Fraction of Inspired Oxygen Intake/Output Intake/Output: Intake & Output 04/25/25 04/26/25 04/27/25 04/28/25 23:59 23:59 23:59 23:59 Intake Total 1622 1217 1120 Output Total 1130.301.2520 600 Balance 272 153 -182 -593 Meds/Results Medications: Active Medications Generic Name Dose Route Start Last Admin Trade Name Freq PRN Reason Stop Dose Admin Hydrocodone Bitart/Acetaminophen 1 tab 08/19/24 20:00 08/26/24 21:35 Hydrocodone/Acetaminophen (*Crx) 10-325 Mg Tablet PO 1 tab Q8HR PRN Administration pain Albuterol 1 puff 08/19/24 11:11 Albuterol Sulfate (*Sp) Aerosol 1 Puff INHALATION QID PRN shortness of breath or wheezing Albuterol/Ipratropium 3 ml 08/19/24 11:11 Ipratropium 0.5 Mg/Albuterol Sulfate 2.5 Mg Ampul.Neb 3 Ml INHALATION QID PRN shortness of breath Atorvastatin Calcium 80 mg 08/20/24 09:00 08/26/24 09:06 Atorvastatin 40 Mg Tablet PO 80 mg DAILY SALAZAR Administration Citalopram Hydrobromide 40 mg 08/20/24 09:00 08/26/24 09:05 Citalopram Hydrobromide 20 Mg Tablet PO 40 mg DAILY SALAZAR Administration Docusate Sodium 100 mg 08/25/24 21:00 08/26/24 21:35 Docusate Sodium 100 Mg Capsule PO 100 mg Q12H SALAZAR Administration Fluticasone/Umeclidinium/Vilanterol 1 puff 08/20/24 08:00 08/26/24 08:15 Fluticasone/Umeclidin/Vilanter 100-62.5-25 Mcg Ellipta INHALATION 1 puff DAILYRT SALAZAR Administration Furosemide 40 mg 08/20/24 09:00 08/22/24 08:15 Furosemide 40 Mg Tablet PO 40 mg DAILY SALAZAR Administration Losartan Potassium 25 mg 08/20/24 09:00 08/22/24 08:15 Losartan Potassium 25 Mg Tablet PO 25 mg DAILY SALAZAR Administration Methocarbamol 750 mg 08/19/24 11:11 08/26/24 21:35 Methocarbamol 750 Mg Tablet PO 750 mg TID PRN Administration muscle spasm Metoprolol Succinate 25 mg 08/20/24 09:00 08/26/24 09:05 Metoprolol Succinate Ext Rel 25 Mg Tabcr PO 25 mg DAILY SALAZAR Administration Mirtazapine 15 mg 08/19/24 21:00 08/26/24 21:36 Mirtazapine 15 Mg Tablet BY MOUTH 15 mg HS SALAZAR Administration Ondansetron HCl 4 mg 08/20/24 08:16 08/20/24 08:52 Ondansetron Inj 4 Mg/2 Ml Vial IV PUSH 4 mg Q6H PRN Administration Nausea And Vomiting Pantoprazole Sodium 40 mg 08/23/24 21:00 08/26/24 21:35 Pantoprazole 40 Mg Tablet PO 40 mg Q12HR SALAZAR Administration Polyethylene Glycol 17 gm 08/24/24 11:20 08/26/24 09:05 Polyethylene Glycol 3350 17 Gm Powd.Pack PO 17 gm QAM SALAZAR Administration Prednisone 20 mg 08/19/24 11:15 08/26/24 09:05 Prednisone 20 Mg Tablet BY MOUTH 20 mg DAILY SALAZAR Administration Sildenafil Citrate 40 mg 08/19/24 13:00 08/26/24 16:29 Sildenafil Citrate 20 Mg Tablet PO 40 mg TID SALAZAR Administration Spironolactone 25 mg 08/20/24 09:00 08/22/24 08:15 Spironolactone 25 Mg Tablet PO 25 mg DAILY SALAZAR Administration Radiology Results: ITS Impressions Abdomen/Pelvis CT 08/18/24 07:00 IMPRESSION: 1. Fluid throughout much of the colon consistent nonspecific diarrhea which could be due to gastroenteritis or reported gastrointestinal bleed. There are 5 small foci of high attenuation within the ascending colon which are similar in density to the contrast in the colon which could represent foci of active extravasation although the multiplicity and dependent distribution would favor high attenuation material within the fecal stream. 2. Mild diffuse gallbladder wall thickening with mild stranding near the fundus but without dilation to more specifically suggest acute cholecystitis. This could be due to decompressed state or potentially chronic cholecystitis. Correlate clinically for Arora sign and if indicated could consider further evaluation with either right upper quadrant ultrasound or HIDA scan. 3. 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 4. Extensive atherosclerotic disease with multifocal severe stenosis along the left external, superficial femoral and deep femoral arteries and at the right deep femoral artery with moderate stenosis at the right superficial femoral artery. 5. Numerous compression and burst fractures from T9 through L5 sparing L2 and several which appear relatively recent and new since 05/29/2024. Chest X-Ray 08/23/24 13:31 Impression: Small right pleural effusion with probable bibasilar pulmonary edema/atelectasis. Correlate clinically for pneumonia. Labs Labs: Laboratory Results - last 24 hr 08/27/24 05:33 WBC 9.2 RBC 2.95 L Hgb 8.5 L Hct 29.9 L MCV 101.4 H D MCH 28.8 MCHC 28.4 L RDW 23.2 H Plt Count 152 MPV 10.4 Sodium 138 Potassium 3.6 Chloride 109 H Carbon Dioxide 23 Anion Gap 6 BUN 11 Creatinine 0.68 L Estim Creat Clear Calc 73 Estimated GFR > 60 Glucose 86 Calcium 7.7 L Magnesium 2.0 Total Bilirubin 1.4 H AST 41 ALT 61 H Alkaline Phosphatase 124 Total Protein 5.0 L Albumin 2.8 L Quality VTE Prophylaxis VTE prophylaxis: mechanical ordered (SCDs)
[2024-08-27] MEDS: FLUTICASONE/UMECLIDIN/VILANTER 100-62.5-25 MCG ELLIPTA 1 PUFF INHALATION (08:17)
[2024-08-27] MEDS: CITALOPRAM HYDROBROMIDE 20 MG TABLET 40 MG PO (08:52)
[2024-08-27] MEDS: DOCUSATE SODIUM 100 MG CAPSULE PO ×2 (08:52→20:39)
[2024-08-27] MEDS: ATORVASTATIN 40 MG TABLET 80 MG PO (08:52)
[2024-08-27] MEDS: PANTOPRAZOLE 40 MG TABLET PO ×2 (08:53→20:39)
[2024-08-27] MEDS: METOPROLOL SUCCINATE EXT REL 25 MG TABCR PO (08:53)
[2024-08-27] MEDS: polyethylene glycoL 3350 17 GM POWD.PACK PO (08:53)
[2024-08-27] MEDS: predniSONE 20 MG TABLET BY MOUTH (08:53)
[2024-08-27] MEDS: SILDENAFIL CITRATE 20 MG TABLET 40 MG PO ×3 (08:53→16:51)
[2024-08-27 12:04] LABS: Potassium 3.2 mmol/L (3.4-5.0)
[2024-08-27] MEDS: POTASSIUM CHLORIDE 20 MEQ ER TABLET 40 MEQ PO (13:20)
[2024-08-27] MEDS: SPIRONOLACTONE 25 MG TABLET PO (13:41)
[2024-08-27] MEDS: ALBUMIN HUMAN 25% 25 GM/100 ML 100 ML IVPB (16:51)
--- NOTE | 2024-08-27 19:49 | P.PNONC_ITS ---
Progress Note: A&P Assessment and Plan (1) Acute on chronic anemia: Code(s): D64.9 - Anemia, unspecified Status: Acute Assessment and Plan: Patient with acute on chronic anemia due to GI bleeding. EGD has shown a large ulcer in stomach incisura. He underwent cauterization and epinephrine injection to the ulcer. He is also on IV Protonix. Patient has been started on oral iron here in during this hospitalization. Hematology advise against doing oral iron because it can irritate the ulcer. I recommended that oral iron to be stopped as it may be aggravating the ulcer and since then it has been stopped. Patient received iron sucrose 400 mg on 08/24/2024 and on 08/25/24. Today hemoglobin is 8.5 and stable. He has been stable on his hemoglobin since 08/23/2024 and I believe that hemostasis is not achieved at the large gastric ulcer site. From Hematology perspective he is cleared to discharge. He will follow-up with GI for repeat EGD in 3-4 months. Thrombocytopenia- Additionally noted is thrombocytopenia since admission. Patient presented with a platelet count of 302 K and over the course of last few days platelets has been slowly decreasing and platelet count was at its lowest at 100 K on 08/23/2024. Today the platelet count is 152 K and normal. Transient thrombocytopenia could be that he may have had exposure to allo- antibodies to platelets from donated blood. No need for any intervention. Subjective Date/time seen: 08/27/24 19:49 Interval history: Patient feels well. No overnight events. Review of Systems Review of Systems Patient reports he is feeling better. He has received 2 units of blood so far since admission. States that he is accepted at a rehab place of his choice and it anticipating rehab before he goes home. States that he has COPD which also restricts his mobility. States that he is very cold all the time. He denies any chest pain but has exertional shortness of breath. He denies any fever, chills, night sweats. No abdominal pain. No diarrhea. Since admission he also denies any hematemesis, hematochezia, melena. Rest of 12 point review of system is negative. Exam Narrative: Alert and oriented x3 very pleasant male in no acute distress ill-appearing. HEENT: eyes are clear and none icteric LUNGS:CTAB HEART: RR S1S2 ABD: BS+, Soft and nontender Lower extremities: no edema SKIN: nonjaundiced Neuro: grossly intact. Objective Data Vital Signs Vital Signs: Vital Signs - 24 hr 08/26/24 20:00 08/26/24 20:00 08/26/24 20:14 Temperature 37.1 C Pulse Rate 65 75 Respiratory Rate 18 Blood Pressure 103/59 L Pulse Oximetry 96 98 Oxygen Delivery High Flow Nasal Cannula Oxygen Flow Rate 6 08/27/24 00:00 08/27/24 04:00 08/27/24 04:57 Temperature 36.6 C Pulse Rate 57 L 49 L 60 Respiratory Rate 18 Blood Pressure 123/73 Pulse Oximetry 100 Oxygen Delivery Oxygen Flow Rate 08/27/24 08:00 08/27/24 08:00 08/27/24 08:53 Temperature Pulse Rate 66 89 Respiratory Rate Blood Pressure Pulse Oximetry 98 Oxygen Delivery High Flow Nasal Cannula Oxygen Flow Rate 6 08/27/24 12:00 08/27/24 14:00 08/27/24 16:00 Temperature 36.4 C L Pulse Rate 71 63 67 Respiratory Rate 16 Blood Pressure 148/71 H Pulse Oximetry 100 Oxygen Delivery Oxygen Flow Rate Intake/Output Intake/Output: Intake & Output 08/24/24 08/25/24 08/26/24 08/27/24 23:59 23:59 23:59 23:59 Intake Total 1622 1217 1120 960 Output Total 0846 706 6446 1100 Balance 272 507 701 -140 Meds/Results Medications: Active Medications Generic Name Dose Route Start Last Admin Trade Name Freq PRN Reason Stop Dose Admin Hydrocodone Bitart/Acetaminophen 1 tab 08/19/24 20:00 08/26/24 21:35 Hydrocodone/Acetaminophen (*Crx) 10-325 Mg Tablet PO 1 tab Q8HR PRN Administration pain Albuterol 1 puff 08/19/24 11:11 Albuterol Sulfate (*Sp) Aerosol 1 Puff INHALATION QID PRN shortness of breath or wheezing Albuterol/Ipratropium 3 ml 08/19/24 11:11 Ipratropium 0.5 Mg/Albuterol Sulfate 2.5 Mg Ampul.Neb 3 Ml INHALATION QID PRN shortness of breath Atorvastatin Calcium 80 mg 08/20/24 09:00 08/27/24 08:52 Atorvastatin 40 Mg Tablet PO 80 mg DAILY SALAZAR Administration Citalopram Hydrobromide 40 mg 08/20/24 09:00 08/27/24 08:52 Citalopram Hydrobromide 20 Mg Tablet PO 40 mg DAILY SALAZAR Administration Docusate Sodium 100 mg 08/25/24 21:00 08/27/24 08:52 Docusate Sodium 100 Mg Capsule PO 100 mg Q12H SALAZAR Administration Fluticasone/Umeclidinium/Vilanterol 1 puff 08/20/24 08:00 08/27/24 08:17 Fluticasone/Umeclidin/Vilanter 100-62.5-25 Mcg Ellipta INHALATION 1 puff DAILYRT SALAZAR Administration Furosemide 40 mg 08/20/24 09:00 08/22/24 08:15 Furosemide 40 Mg Tablet PO 40 mg DAILY SALAZAR Administration Losartan Potassium 25 mg 08/20/24 09:00 08/22/24 08:15 Losartan Potassium 25 Mg Tablet PO 25 mg DAILY SALAZAR Administration Methocarbamol 750 mg 08/19/24 11:11 08/26/24 21:35 Methocarbamol 750 Mg Tablet PO 750 mg TID PRN Administration muscle spasm Metoprolol Succinate 25 mg 08/20/24 09:00 08/27/24 08:53 Metoprolol Succinate Ext Rel 25 Mg Tabcr PO 25 mg DAILY SALAZAR Administration Mirtazapine 15 mg 08/19/24 21:00 08/26/24 21:36 Mirtazapine 15 Mg Tablet BY MOUTH 15 mg HS SALAZAR Administration Ondansetron HCl 4 mg 08/20/24 08:16 08/20/24 08:52 Ondansetron Inj 4 Mg/2 Ml Vial IV PUSH 4 mg Q6H PRN Administration Nausea And Vomiting Pantoprazole Sodium 40 mg 08/23/24 21:00 08/27/24 08:53 Pantoprazole 40 Mg Tablet PO 40 mg Q12HR SALAZAR Administration Polyethylene Glycol 17 gm 08/24/24 11:20 08/27/24 08:53 Polyethylene Glycol 3350 17 Gm Powd.Pack PO 17 gm QAM SALAZAR Administration Prednisone 20 mg 08/19/24 11:15 08/27/24 08:53 Prednisone 20 Mg Tablet BY MOUTH 20 mg DAILY SALAZAR Administration Sildenafil Citrate 40 mg 08/19/24 13:00 08/27/24 16:51 Sildenafil Citrate 20 Mg Tablet PO 40 mg TID SALAZAR Administration Spironolactone 25 mg 08/27/24 14:00 08/27/24 13:41 Spironolactone 25 Mg Tablet PO 25 mg DAILY SALAZAR Administration Radiology Results: ITS Impressions Abdomen/Pelvis CT 08/18/24 07:00 IMPRESSION: 1. Fluid throughout much of the colon consistent nonspecific diarrhea which could be due to gastroenteritis or reported gastrointestinal bleed. There are 5 small foci of high attenuation within the ascending colon which are similar in density to the contrast in the colon which could represent foci of active extrav asation although the multiplicity and dependent distribution would favor high attenuation material within the fecal stream. 2. Mild diffuse gallbladder wall thickening with mild stranding near the fundus but without dilation to more specifically suggest acute cholecystitis. This could be due to decompressed state or potentially chronic cholecystitis. Correlate clinically for Arora sign and if indicated could consider further evaluation with either right upper quadrant ultrasound or HIDA scan. 3. 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 4. Extensive atherosclerotic disease with multifocal severe stenosis along the left external, superficial femoral and deep femoral arteries and at the right deep femoral artery with moderate stenosis at the right superficial femoral artery. 5. Numerous compression and burst fractures from T9 through L5 sparing L2 and several which appear relatively recent and new since 05/29/2024. Chest X-Ray 08/23/24 13:31 Impression: Small right pleural effusion with probable bibasilar pulmonary edema/ate lectasis. Correlate clinically for pneumonia. Labs Labs: Laboratory Results - last 24 hr 08/27/24 08/27/24 05:33 11:44 WBC 9.2 RBC 2.95 L Hgb 8.5 L Hct 29.9 L MCV 101.4 H D MCH 28.8 MCHC 28.4 L RDW 23.2 H Plt Count 152 MPV 10.4 Sodium 138 Potassium 3.6 3.2 L Chloride 109 H Carbon Dioxide 23 Anion Gap 6 BUN 11 Creatinine 0.68 L Estim Creat Clear Calc 73 Estimated GFR > 60 Glucose 86 Calcium 7.7 L Magnesium 2.0 Total Bilirubin 1.4 H AST 41 ALT 61 H Alkaline Phosphatase 124 Total Protein 5.0 L Albumin 2.8 L
[2024-08-27] MEDS: HYDROcodone/acetaminophen (*CRX) 10-325 MG TABLET 1 TAB PO (20:39)
[2024-08-27] MEDS: MIRTAZAPINE 15 MG TABLET BY MOUTH (20:39)
[2024-08-27] MEDS: methocarbamoL 750 MG TABLET PO (20:39)
[2024-08-28] VITALS (7 sets, daily range): BP systolic 111–123; BP diastolic 59–76; PULSE 55–69; RESP 16–18; TEMP 36.3–36.6; O2SAT 95–100
[2024-08-28 05:56] LABS: Hemoglobin 8.7 g/dL (14.0-18.0); Mean Corpuscular Hemoglobin 28.5 pg (26-34); Mean Corpuscular Volume 98.4 fl (80-100); Mean Platelet Volume 9.9 fl (7.4-10.4); Platelet Count Result 151 k/mm3 (150-375); Red Blood Count 3.05 M/mm3 (4.6-6.20); Red Cell Distribution Width 22.9 % (11.5-14.5); White Blood Count 9.9 K/mm3 (4.5-10.0)
[2024-08-28 06:11] LABS: Alanine Aminotransferase 65 U/L (6-50); Albumin Level 3.1 g/dL (3.5-5.1); Alkaline Phosphatase 147 U/L (38-126); Anion Gap 6 mmol/L (4-12); Aspartate Amino Transferase 42 U/L (17-59); Bilirubin,Total 1.2 mg/dL (0.2-1.3); Blood Urea Nitrogen 13 mg/dL (9-20); Carbon Dioxide 26 mmol/L (22-30); Chloride 108 mmol/L (98-107); Estimated CRCL calculation 69 ml/min; Estimated Glomerular Filt Rate > 60; Glucose 144 mg/dL (65-110); Magnesium 1.9 mg/dL (1.6-2.3); Potassium 3.7 mmol/L (3.4-5.0); Sodium 140 mmol/L (137-145)
[2024-08-28] MEDS: METOPROLOL SUCCINATE EXT REL 25 MG TABCR PO (08:39)
[2024-08-28] MEDS: ATORVASTATIN 40 MG TABLET 80 MG PO (08:39)
[2024-08-28] MEDS: predniSONE 20 MG TABLET BY MOUTH (08:39)
[2024-08-28] MEDS: PANTOPRAZOLE 40 MG TABLET PO (08:39)
[2024-08-28] MEDS: CITALOPRAM HYDROBROMIDE 20 MG TABLET 40 MG PO (08:39)
[2024-08-28] MEDS: SPIRONOLACTONE 25 MG TABLET PO (08:39)
[2024-08-28] MEDS: SILDENAFIL CITRATE 20 MG TABLET 40 MG PO ×2 (08:39→12:03)
[2024-08-28] MEDS: FLUTICASONE/UMECLIDIN/VILANTER 100-62.5-25 MCG ELLIPTA 1 PUFF INHALATION (09:16)
--- NOTE | 2024-08-28 09:49 | P.DS_ITS ---
DS: Admitting Diagnosis Discharge Date 08/28/2024 Admitting Diagnosis GI Bleed. DS: Discharge Diagnosis Discharge Diagnosis (1) Compression fracture: Status: Acute (2) Epidural lipomatosis: Code(s): D17.79 - Benign lipomatous neoplasm of other sites Status: Acute (3) Hemorrhagic shock: Code(s): R57.8 - Other shock Status: Acute (4) Acute upper gastrointestinal bleeding: Code(s): K92.2 - Gastrointestinal hemorrhage, unspecified Status: Acute (5) Acute blood loss anemia: Code(s): D62 - Acute posthemorrhagic anemia Status: Acute (6) Combined systolic and diastolic cardiac dysfunction: Code(s): I51.89 - Other ill-defined heart diseases Status: Acute (7) Protein-calorie malnutrition, moderate: Code(s): E44.0 - Moderate protein-calorie malnutrition Status: Acute (8) Hypokalemia: Code(s): E87.6 - Hypokalemia Status: Acute (9) Constipation: Code(s): K59.00 - Constipation, unspecified Status: Acute DS: Summary Hospital Course Hospital Course: Patient's was noted to be hypotensive on arrival to the ER with systolic blood pressures ranging between the mid 60s in mid 80s. He received 1 L fluid bolus and 2 units of packed red blood cells. Patient's abdomen was noted to be distended but nontender to palpation. After 1 L of fluid and the initial 1 unit of blood patient still remained hypotensive. Patient reports feeling severely chilled but was afebrile. Patient was given IV Protonix. Hemoglobin 6.9 on admission. Creatinine 1.46 on admission. Abdomen/Pelvis CT 08/18/24 07:00 IMPRESSION: 1. Fluid throughout much of the colon consistent nonspecific diarrhea which could be due to gastroenteritis or reported gastrointestinal bleed. There are 5 small foci of high attenuation within the ascending colon which are similar in density to the contrast in the colon which could represent foci of active extravasation although the multiplicity and dependent distribution would favor high attenuation material within the fecal stream. 2. Mild diffuse gallbladder wall thickening with mild stranding near the fundus but without dilation to more specifically suggest acute cholecystitis. This could be due to decompressed state or potentially chronic cholecystitis. Correlate clinically for Arora sign and if indicated could consider further evaluation with either right upper quadrant ultrasound or HIDA scan. 3. 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 4. Extensive atherosclerotic disease with multifocal severe stenosis along the left external, superficial femoral and deep femoral arteries and at the right deep femoral artery with moderate stenosis at the right superficial femoral artery. 5. Numerous compression and burst fractures from T9 through L5 sparing L2 and several which appear relatively recent and new since 05/29/2024. TLSO brace ordered. EGD on 08/20/24 showed a large gastric ulcer. Area was cauterized and biopsy was sent for H. pylori. Patient to repeat EGD on 12/03/24. Chest X-Ray 08/23/24 13:31 Impression: Small right pleural effusion with probable bibasilar pulmonary edema/atelectasis. Correlate clinically for pneumonia. Patient also seen by Oncology/Hematology. Patient received 2 iron infusions. Platelets improved during visit. Hemoglobin 8.7 on discharge. Patient received protein shakes for low protein. Albumin supplemented. Patient discharged to [facility] for rehab. Status at Discharge Functional status at discharge: uses cane/walker Overall status at discharge: patient is not back to baseline Time Spent with Patient Time attestation: Total time spent providing and/or coordinating discharge services: Time spent: Greater than 30 minutes Exam Const: General: no acute distress and uncomfortable Resp: Effort & Inspection: normal respiratory effort Auscultation: diminished lung sounds Cardio: Rate: regular rate Rhythm: regular rhythm Other: Telemetry- SR 67. GI: GI Palp: Yes Soft to palpation Auscultation: normal bowel sounds Extrem: General: no pedal edema Psych: Mental Status: mental status grossly normal Affect: normal affect DS: Data Data Completed and Pending Labs on day of discharge: Labs from last 24 hours 08/28/24 08/27/24 05:49 11:44 WBC 9.9 RBC 3.05 L Hgb 8.7 L Hct 30.0 L MCV 98.4 MCH 28.5 MCHC 29.0 L RDW 22.9 H Plt Count 151 MPV 9.9 Sodium 140 Potassium 3.7 3.2 L Chloride 108 H Carbon Dioxide 26 Anion Gap 6 BUN 13 Creatinine 0.72 Estim Creat Clear Calc 69 Estimated GFR > 60 Glucose 144 H Calcium 8.0 L Magnesium 1.9 Total Bilirubin 1.2 AST 42 ALT 65 H Alkaline Phosphatase 147 H Total Protein 5.0 L Albumin 3.1 L Discharge Plan Discharge Attending physician on discharge: Jinny Frias Consulting providers: Niecy Cosme; Lolita Wright Discharging Clinician: Maryann Tong Anticipated Discharge Date/Time: 08/28/24 13:00 Patient Disposition: SNF Activity: may shower and as tolerated Diet: heart healthy Discharge Instructions: * Increase protein intake. Ensure is a good source three times a day. * Wear TLSO brace when up out of bed. * Report any blood in your stool or increase fatigue to provider. * Discuss with primary when and if you should restart Lasix, Potassium, and Losartan. * EGD scheduled on 12/03/24. Do not eat or drink after midnight before test. If you have any questions you call Dr. Guerra office at [phone]. * Holding oral iron per Hematology recommendation that it can irritate the ulcer. * You received 2 iron infusions during visit. * PT/OT at [facility]. Thank you for entrusting [facility] with your healthcare! Patient Instructions: Antibiotic Form, Aspirin (By mouth), Heart Failure (DC), Peptic Ulcer (DC), Using Oxygen at Home (DC), Anemia (DC), Thoracolumbosacral Orthosis (DC) Patient Language: Croatian Stand Alone Forms: General Discharge Information Follow-up/Referrals: Yusuf Quintanilla MD [Primary Care Provider] - 1 Week Taras Oropeza MD [Physician] - Call for Appointment Discharge Medications: New hydrocodone-acetaminophen 10-325 mg tablet 1 tablet PO BID PRN (Reason: pain) Qty: 6 0RF polyethylene glycol 3350 [Miralax] 17 gram Powder In Packet 17 g PO QAM Qty: 30 0RF pantoprazole 40 mg Tablet,Delayed Release (Dr/Ec) 40 mg PO Q12HR Qty: 28 0RF Continued Opsumit 10 mg tablet 10 mg PO DAILY sildenafil (pulm.hypertension) 20 mg tablet 40 mg PO TID metoprolol succinate 25 mg tablet extended release 24 hr 25 mg PO DAILY hydrocodone-acetaminophen 10-325 mg tablet 1 tablet PO BID PRN (Reason: pain) ipratropium-albuterol 0.5 mg-3 mg(2.5 mg base)/3 mL solution for nebulization 3 ml inhalation QID PRN (Reason: shortness of breath) Qty: 180 0RF albuterol sulfate 90 mcg/actuation HFA aerosol inhaler 1 inh inhalation QID PRN (Reason: shortness of breath or wheezing) Qty: 8.5 0RF (DME) nebulizers [facility] [place] See Rx Instructions .Route Qty: 1 0RF Rx Instructions: As directed Zain Aerosphere 160-9-4.8 mcg/actuation HFA aerosol inhaler 2 inh inhalation BID Qty: 10.7 3RF Rx Instructions: Says takes PRN citalopram 20 mg tablet 40 mg PO DAILY Qty: 180 0RF azithromycin 500 mg tablet 500 mg PO .three times per week 90 Days Qty: 36 1RF Rx Instructions: TUESDAY, TUESDAY, TUESDAY methocarbamol 750 mg tablet 750 mg PO TID PRN (Reason: muscle spasm) Qty: 30 0RF prednisone 20 mg tablet See Rx Instructions .ROUTE .COMPLEX Qty: 30 1RF Dose Instruction: Take 1 tablet by mouth once daily Rx Instructions: Take 1 tablet by mouth once daily spironolactone 25 mg tablet 25 mg PO DAILY Qty: 90 0RF atorvastatin 80 mg tablet 80 mg PO DAILY Qty: 90 1RF mirtazapine 15 mg tablet See Rx Instructions .ROUTE .COMPLEX Qty: 90 1RF Dose Instruction: TAKE 1 TABLET BY MOUTH ONCE DAILY AT BEDTIME Rx Instructions: TAKE 1 TABLET BY MOUTH ONCE DAILY AT BEDTIME pantoprazole 40 mg tablet,delayed release (DR/EC) 40 mg PO BID Qty: 60 5RF Held losartan 25 mg tablet 25 mg PO DAILY Hold Instructions: Resume on 09/12/24. Discuss with primary when or if you should restart. potassium chloride [K-Tab] 20 mEq tablet extended release 20 meq PO BID Hold Instructions: Resume on 09/05/24. Hold until you discuss with provider since not taking furosemide. furosemide 40 mg tablet 40 mg PO DAILY Qty: 90 1RF Hold Instructions: Resume on 09/12/24. HOLD until you discuss with primary. Discontinued Slow Fe 137 mg (45 mg iron) tablet extended release 137 mg PO BID aspirin 81 mg Tablet,Chewable 81 mg PO DAILY lisinopril 20 mg tablet 10 mg PO DAILY Date of admission: 08/19/24 07:59 Primary Care Provider: Yusuf Quintanilla Admitting Provider: Pelon Moura Attending physician on admission: Pelon Moura Condition: Improved Hospitalist MIPS Heart Failure (Exclusion) Patient has history of Heart Transplant or Left Ventricular Assistive Device?: No IF YES, STOP HERE Heart Failure (Qualifier) Patient has current or prior documentation of LVEF less than or equal to 40%, or mod/servere depressed LVSF?: No IF NO, STOP HERE
--- NOTE | 2024-08-28 14:14 | WPDONCPN ---
Progress Note: A&P Assessment and Plan (1) Acute on chronic anemia: Code(s): D64.9 - Anemia, unspecified Status: Acute Assessment and Plan: Patient with acute on chronic anemia due to GI bleeding. EGD has shown a large ulcer in stomach incisura. He underwent cauterization and epinephrine injection to the ulcer. He is also on IV Protonix. Patient has been started on oral iron here in during this hospitalization. Hematology advise against doing oral iron because it can irritate the ulcer. I recommended that oral iron to be stopped as it may be aggravating the ulcer and since then it has been stopped. Patient received iron sucrose 400 mg on 08/24/2024 and on 08/25/24. Today hemoglobin is 8.7 and stable. He has been stable on his hemoglobin since 08/23/2024 and I believe that hemostasis is not achieved at the large gastric ulcer site. From Hematology perspective he is cleared to discharge. He will follow-up with GI for repeat EGD in 3-4 months. Thrombocytopenia- Additionally noted is thrombocytopenia since admission. Patient presented with a platelet count of 302 K and over the course of last few days platelets has been slowly decreasing and platelet count was at its lowest at 100 K on 08/23/2024. Today the platelet count is 152 K and normal. Transient thrombocytopenia could be that he may have had exposure to allo- antibodies to platelets from donated blood. No need for any intervention. Subjective Date/time seen: 08/28/24 14:14 Interval history: Patient feels well. No overnight events. Patient is to go to rehab today. Review of Systems Review of Systems Patient reports he is feeling better. He has received 2 units of blood so far since admission. States that he is accepted at a rehab place of his choice and it anticipating rehab before he goes home. States that he has COPD which also restricts his mobility. States that he is very cold all the time. He denies any chest pain but has exertional shortness of breath. He denies any fever, chills, night sweats. No abdominal pain. No diarrhea. Since admission he also denies any hematemesis, hematochezia, melena. Rest of 12 point review of system is negative. Exam Narrative: Alert and oriented x3 very pleasant male in no acute distress ill-appearing. HEENT: eyes are clear and none icteric LUNGS:CTAB HEART: RR S1S2 ABD: BS+, Soft and nontender Lower extremities: no edema SKIN: nonjaundiced Neuro: grossly intact. Objective Data Vital Signs Vital Signs: Vital Signs - 24 hr 08/27/24 16:00 08/27/24 20:00 08/27/24 20:00 Temperature Pulse Rate 67 63 Respiratory Rate Blood Pressure Pulse Oximetry 97 Oxygen Delivery High Flow Nasal Cannula Oxygen Flow Rate 6 Fraction of Inspired Oxygen 08/27/24 20:18 08/28/24 00:00 08/28/24 04:00 Temperature 36.4 C Pulse Rate 68 55 L 56 L Respiratory Rate 16 Blood Pressure 124/69 Pulse Oximetry 97 Oxygen Delivery Oxygen Flow Rate Fraction of Inspired Oxygen 08/28/24 04:24 08/28/24 08:00 08/28/24 08:00 Temperature 36.6 C Pulse Rate 55 L 58 L Respiratory Rate 16 Blood Pressure 123/76 Pulse Oximetry 100 100 Oxygen Delivery High Flow Nasal Cannula Oxygen Flow Rate 6 Fraction of Inspired Oxygen 08/28/24 08:06 08/28/24 08:39 08/28/24 09:19 Temperature Pulse Rate 69 Respiratory Rate Blood Pressure Pulse Oximetry 95 Oxygen Delivery High Flow Nasal Cannula High Flow Nasal Cannula Oxygen Flow Rate 6 6 Fraction of Inspired Oxygen 44 Intake/Output Intake/Output: Intake & Output 08/25/24 08/26/24 08/27/24 08/28/24 23:59 23:59 23:59 23:59 Intake Total 1217 1120 960 780 Output Total 710 1825 1100 700 Balance 493 -706 -140 80 Meds/Results Medications: Active Medications Generic Name Dose Route Start Last Admin Trade Name Freq PRN Reason Stop Dose Admin Hydrocodone Bitart/Acetaminophen 1 tab 08/19/24 20:00 08/27/24 20:39 Hydrocodone/Acetaminophen (*Crx) 10-325 Mg Tablet PO 1 tab Q8HR PRN Administration pain Albuterol 1 puff 08/19/24 11:11 Albuterol Sulfate (*Sp) Aerosol 1 Puff INHALATION QID PRN shortness of breath or wheezing Albuterol/Ipratropium 3 ml 08/19/24 11:11 Ipratropium 0.5 Mg/Albuterol Sulfate 2.5 Mg Ampul.Neb 3 Ml INHALATION QID PRN shortness of breath Atorvastatin Calcium 80 mg 08/20/24 09:00 08/28/24 08:39 Atorvastatin 40 Mg Tablet PO 80 mg DAILY SALAZAR Administration Citalopram Hydrobromide 40 mg 08/20/24 09:00 08/28/24 08:39 Citalopram Hydrobromide 20 Mg Tablet PO 40 mg DAILY SALAZAR Administration Docusate Sodium 100 mg 08/25/24 21:00 08/28/24 08:38 Docusate Sodium 100 Mg Capsule PO Not Given Q12H SALAZAR Fluticasone/Umeclidinium/Vilanterol 1 puff 08/20/24 08:00 08/28/24 09:16 Fluticasone/Umeclidin/Vilanter 100-62.5-25 Mcg Ellipta INHALATION 1 puff DAILYRT SALAZAR Administration Furosemide 40 mg 08/20/24 09:00 08/22/24 08:15 Furosemide 40 Mg Tablet PO 40 mg DAILY SALAZAR Administration Losartan Potassium 25 mg 08/20/24 09:00 08/22/24 08:15 Losartan Potassium 25 Mg Tablet PO 25 mg DAILY SALAZAR Administration Methocarbamol 750 mg 08/19/24 11:11 08/27/24 20:39 Methocarbamol 750 Mg Tablet PO 750 mg TID PRN Administration muscle spasm Metoprolol Succinate 25 mg 08/20/24 09:00 08/28/24 08:39 Metoprolol Succinate Ext Rel 25 Mg Tabcr PO 25 mg DAILY SALAZAR Administration Mirtazapine 15 mg 08/19/24 21:00 08/27/24 20:39 Mirtazapine 15 Mg Tablet BY MOUTH 15 mg HS SALAZAR Administration Ondansetron HCl 4 mg 08/20/24 08:16 08/20/24 08:52 Ondansetron Inj 4 Mg/2 Ml Vial IV PUSH 4 mg Q6H PRN Administration Nausea And Vomiting Pantoprazole Sodium 40 mg 08/23/24 21:00 08/28/24 08:39 Pantoprazole 40 Mg Tablet PO 40 mg Q12HR SALAZAR Administration Polyethylene Glycol 17 gm 08/24/24 11:20 08/28/24 08:38 Polyethylene Glycol 3350 17 Gm Powd.Pack PO Not Given QAM SALAZAR Prednisone 20 mg 08/19/24 11:15 08/28/24 08:39 Prednisone 20 Mg Tablet BY MOUTH 20 mg DAILY SALAZAR Administration Sildenafil Citrate 40 mg 08/19/24 13:00 08/28/24 12:03 Sildenafil Citrate 20 Mg Tablet PO 40 mg TID SALAZAR Administration Spironolactone 25 mg 08/27/24 14:00 08/28/24 08:39 Spironolactone 25 Mg Tablet PO 25 mg DAILY SALAZAR Administration Radiology Results: ITS Impressions Abdomen/Pelvis CT 08/18/24 07:00 IMPRESSION: 1. Fluid throughout much of the colon consistent nonspecific diarrhea which could be due to gastroenteritis or reported gastrointestinal bleed. There are 5 small foci of high attenuation within the ascending colon which are similar in density to the contrast in the colon which could represent foci of active extravasation although the multiplicity and dependent distribution would favor high attenuation material within the fecal stream. 2. Mild diffuse gallbladder wall thickening with mild stranding near the fundus but without dilation to more specifically suggest acute cholecystitis. This could be due to decompressed state or potentially chronic cholecystitis. Correlate clinically for Arora sign and if indicated could consider further evaluation with either right upper quadrant ultrasound or HIDA scan. 3. 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 4. Extensive atherosclerotic disease with multifocal severe stenosis along the left external, superficial femoral and deep femoral arteries and at the right deep femoral artery with moderate stenosis at the right superficial femoral artery. 5. Numerous compression and burst fractures from T9 through L5 sparing L2 and several which appear relatively recent and new since 05/29/2024. Chest X-Ray 08/23/24 13:31 Impression: Small right pleural effusion with probable bibasilar pulmonary edema/atelectasis. Correlate clinically for pneumonia. Labs Labs: Laboratory Results - last 24 hr 08/28/24 05:49 WBC 9.9 RBC 3.05 L Hgb 8.7 L Hct 30.0 L MCV 98.4 MCH 28.5 MCHC 29.0 L RDW 22.9 H Plt Count 151 MPV 9.9 Sodium 140 Potassium 3.7 Chloride 108 H Carbon Dioxide 26 Anion Gap 6 BUN 13 Creatinine 0.72 Estim Creat Clear Calc 69 Estimated GFR > 60 Glucose 144 H Calcium 8.0 L Magnesium 1.9 Total Bilirubin 1.2 AST 42 ALT 65 H Alkaline Phosphatase 147 H Total Protein 5.0 L Albumin 3.1 L
== END 2024-08-28 15:01 | DRG 377 ==
LOC: ANHED 08-19 08:08 → ANH3MED 08-19 08:34
PROVIDERS: Emergency Medicine; General Practice; Internal Medicine; Internal Medicine Gastroenterology; Nurse Practitioner Family; Admitting Provider Family Medicine; Emergency Provider Emergency Medicine; PCP Family Medicine; Visit Provider Nurse Practitioner Family
PROC: 0DJ08ZZ Inspection of Upper Intestinal Tract, Via Natural or Artificial Opening Endoscopic (ICD-10-PCS; principal; 2024-08-20 15:00)
DX: K28.4 Chronic or unspecified gastrojejunal ulcer with hemorrhage (principal); R57.8 Other shock; D62 Acute posthemorrhagic anemia; I50.42 Chronic combined systolic (congestive) and diastolic (congestive) heart failure; J96.11 Chronic respiratory failure with hypoxia; E44.0 Moderate protein-calorie malnutrition; N17.9 Acute kidney failure, unspecified; Z68.1 Body mass index [BMI] 19.9 or less, adult; K92.0 Hematemesis; I25.10 Atherosclerotic heart disease of native coronary artery without angina pectoris; G47.33 Obstructive sleep apnea (adult) (pediatric); D50.9 Iron deficiency anemia, unspecified; I11.0 Hypertensive heart disease with heart failure; M48.062 Spinal stenosis, lumbar region with neurogenic claudication; M54.16 Radiculopathy, lumbar region; F41.1 Generalized anxiety disorder; I70.0 Atherosclerosis of aorta; I73.00 Raynaud's syndrome without gangrene; E03.9 Hypothyroidism, unspecified; E78.5 Hyperlipidemia, unspecified; R91.1 Solitary pulmonary nodule; K59.00 Constipation, unspecified; E87.6 Hypokalemia; G62.9 Polyneuropathy, unspecified; D69.6 Thrombocytopenia, unspecified; D72.823 Leukemoid reaction; Z66 Do not resuscitate; Z99.81 Dependence on supplemental oxygen; Z87.891 Personal history of nicotine dependence; Z95.1 Presence of aortocoronary bypass graft
CPT/HCPCS: 36415; 36430; 71045; 74177; 80048; 80053; 81001; 83735; 83880; 84132; 85014; 85018; 85025; 85027; 85610; 85730; 86850; 86900; 86901; 86923; 87081; 93005; 94640; 96361; 96374; 96376; 97110; 97161; 97166; 97530; 97535; 99285; A9270; J0171; J1756; J1938; J2003; J2405; J2470; J2704; J3480; J7030; J7040; J7050; J7120; J7512; P9016; P9047; Q9967

== ENCOUNTER 2024-10-06 13:20 | Inpatient (IN) | payer MEDICARE, SELFPAY ==
[2024-10-06] VITALS (18 sets, daily range): BP systolic 103–139; BP diastolic 59–90; PULSE 79–128; RESP 22–35; TEMP 36.6–36.9; O2SAT 88–100
--- NOTE | ~2024-10-06 | XR_ITS ---
EXAMINATION: XR chest 1V portable Exam Date/Time: 10/06/2024 14:20 CDT HISTORY: SOB Comparison: 08/23/2024. RESULT: Lines, tubes, and devices: Intact sternotomy wires. Lungs and pleura: Left mid lung discoid atelectasis versus scar. Improving aeration of the right med ial lung base. Minimal, improving right costophrenic angle blunting. Cardiomediastinal silhouette: Stable. Other: No acute osseous or upper abdominal finding. IMPRESSION: No new acute cardiopulmonary process. Improving right medial basilar airspace disease and trace right effusion. Reviewed, dictated and finalized at location K. IMPRESSION: No new acute cardiopulmonary process. Improving right medial basilar airspace d isease and trace right effusion.
--- NOTE | ~2024-10-06 | CT_ITS ---
EXAMINATION: CTA chest PE protocol DATE: 10/07/2024 17:26 INDICATION: R/O PE TECHNIQUE: Computed tomography angiography (CTA) of the chest was performed with 100 mL Omnipaque-350 intravenous contrast timed to evaluate the pulmonary arteries. Coronal maximum intensity projection 3D-reconstructions were created by the technologist. The dose-length product (DLP) was 483.20 mGy-cm. Automated exposure control and iterative reconstruction technique were employed. COMPARISON: 07/08/2022; CT abdomen pelvis 08/18/2024. FINDINGS: Lung parenchyma and airways: Considerable motion artifact. Segmental consolidation in the right lower lobe. Calcified right middle lobe granuloma. Large lingular bulla with adjacent subsegmental consoli dation. Moderate emphysematous change. Patent airways. Pleura: Unremarkable. Thoracic inlet, axillae and chest wall: Unremarkable. Thoracic aorta: No significant dilation. No dissection. Mediastinum: Dilated central pulmonary arteries as can be seen with pulmonary hypertension. Heart and pericardium: Status post CABG. No pericardial effusion. Coronary artery calcifications: Moderate. Upper abdomen: No significant finding. Bones: Moderate compression deformity at T7. Chronic stable compression deformities at T10-L1. Pulmonary arteries: Study quality: Severely limited due to beam hardening from arm down positioning a nd significant respiratory motion. No central pulmonary emboli detected. IMPRESSION: Severely limited evaluation of the segmental and more distal pulmonary arteries. No central acute pul monary embolus acute. Segmental right medial basilar and subsegmental lingular consolidation. Moderate compression deformity at T7, presumably chronic unless accompanied by acute pain/tenderness. Reviewed, dictated and finalized at location K. IMPRESSION: Severely limited evaluation of the segmental and more distal pulmonary arteries . No central acute pulmonary embolus acute. Segmental right medial basilar and subsegmental lingular consolidation. Moderate compression deformity at T7, presumably chronic unless accompanied by acute pain/tenderness.
--- OUTSIDE RECORDS SUMMARY | 2024-10-06 13:22 | XMS_ITS | Clinical Summary ---
Author Organization [facility] Address [address] [place] [address] Care Team Providers Care Builder Operator Name Role Phone Unavailable Primary Care Provider Unavailabl e Source Comments [facility],non-owned Affiliates and Associated Physician Practices is amultiple site organization consisting of ambulatory clinics and hospital sitesin [place], [place], [place] and [place]. This disclosure is being madepursuant to the Care Everywhere program and may not contain all information available regarding this patient. 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
--- OUTSIDE RECORDS SUMMARY | 2024-10-06 13:22 | XMS_ITS | Clinical Summary ---
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
--- OUTSIDE RECORDS SUMMARY | 2024-10-06 13:22 | XMS_ITS | Clinical Summary ---
Author Organization [facility] [address] Address [address] [place] [address] Care Team Providers Care Paid Search Specialist Name Role Phone Yusuf Quintanilla MD Primary Care Provider [phone] Allergies Active Allergy Reactions Criticality Noted Date [...] times a day 180 tablet 11 4 Active Opsumit 10 mg tablet Take 1 [...] 60 tablet 11 4 12/28/19 25 Active HYDROcodone-aceta minophen (NORCO) [...] Encounters Date Type Department Care Team Description 09/12/2024 Telephone [facility] [address] [facility] 8th [place] [address] [place] [address] Day Snell RN 09/10/2024 Orders Only [facility] [address] [facility] 8th [place] [address] [place] [address] Day Snell RN 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 [address] [facility] [address] [place] [address] Other iron deficiency anemia (Primary Dx) 08/08/2024 9:45 AM CDT Office Visit [facility] Cardiology [address] [place] [phone] Taras Ramirez MD Hx of CABG (Primary Dx); Pulmonary hypertension (HCC); Stage 3a chronic kidney disease (HCC) 08/07/2024 1:30 PM CDT Infusion [facility] [address] [facility] 7th [place] [address] Other iron deficiency anemia (Primary Dx) 08/06/2024 Orders Only [facility] [address] [facility] 8th [place] [address] [place] [address] Day Snell RN 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 [address] [facility] [address] [place] [phone] Other iron deficiency anemia (Primary Dx) 07/31/2024 Documentation [facility] 8th [place] [address] Em Harp CMA [address] [facility] [address] [place] [address] [address] [place] [phone] No, Physician 07/27/[address] [facility] [address] [place] [address] [address] [place] [phone] Carola Benitez RN 07/24/2024 Telephone [facility] [address] [place] [address] [place] [phone] Mary Pantoja NP 07/20/[address] 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); Chronic obstructive pulmonary disease with acute exacerbation (HCC); Chronic right-sided CHF (congestive heart failure) (HCC) Discharge Disposition: Discharge to home or self care 07/19/2024 1:50 PM CDT Office Visit [facility] [address] [place] [address] Medicine 8th [place] [address] Mary Pantoja NP 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 Gender Identity Male 09/02/2020 8:09 AM CDT [...] 9:54 AM CDT Height 175.3 cm (5' 9) 08/08/2024 9:47 AM CDT Body Mass Index [...] Chronic right-sided CHF (congestive heart failure) (HCC) from Last 3 Months Results * (ABNORMAL) [...] N/A EXTERNAL LAB SCRIBED eGFR in NonAfrican [place] Citizen 60 = or > 60 EXTERNAL LAB Blood 08/02/2024 us Taras Ramirez MD LAB BLOOD ORDERABLES Fin al Result EXTERNAL LAB * TRANSTHORACIC ECHO (TTE) COMPLETE W DOPPLER/CF WO CONTRAST (07/19/2024 4:26 PM CDT) Anatomical Region Laterality Modality Ultrasound 07/19/2024 2:53 PM CDT Narrative 07/20/2024 6:42 AM CDT [facility] [place]iac [place] [address] Transthoracic Echocardiographic Report Patient Name: ONI KO J : 1945 (78y 11m) Gender: M Study Date: 07/19/2024 02:53:43 PM Ht(Inch): 69 Wt(Lb): 154.98 BSA: 1.85 Assistance Representative: Paula Waters Location: [facility] Order Provider: HARISH CALHOUN Heart Rate: 51 BMI: 22.88 Ref Provider: HARISH CALHOUN PROCEDURES: Echocardiographic Report: Transthoracic complete echo, 2D, [...] Procedure Note Lucio Tran MD - 07/20/2024 [facility] [place] [address] Transthoracic Echocardiographic Report Patient Name: ONI KO J : 1945 (78y 11m) Gender: M Study Date: 07/19/2024 02:53:43 PM Ht(Inch): 69 Wt(Lb): 154.98 BSA: 1.85 Assistance Representative: Paula Waters Location: [facility] Order Provider:HARISH CALHOUN Heart Rate: 51 BMI: 22.88 Ref Provider: HARISH CALHOUN PROCEDURES: Echocardiographic Report: Transthoracic complete echo, 2D, [...] LA Length 2C 4.08 cm MV Decel Qpab768.23 msec [ 104.00 - 258.00 ] LA [...] [ 1.00 - 2.00 ] PI ED Yvf400.45 m/sec PI Peak PG 24 mmHg PI PHT 420.97 sec Electronically Signed By: Lucio Tran MD 07/20/2024 6:41:36 AM CDT us Harish Calhoun MD CV ECHO PROCEDURES Final Result * Pulmonary Function Test - (07/19/2024 1:06 PM CDT) FVC PRE 3.10 L [facility] FVC %PRE PRED 83 % [facility] FEV1 PRE 1.39 L [facility] FEV1 %PRE PRED 50 % [facility] FEV1/FVC PRE 44.7 % [facility] Anatomical Region Laterality Modality PFT 07/19/2024 12:5 7 PM CDT Narrative 07/19/2024 1:28 PM CDT PFT performed at:->[facility] Adult PFT Lab- [facility] Procedure:->Spirometry Pulmonary [...] and %HbO2 is age dependent. However, the [facility] defines hypoxemia as a PaO2 <56 mm Hg or a %HbO2 <89%. Starting on May of 2024 the [facility] Function [facility] utilizes race neutral GLI Global normative equations. Harish Calhoun MD PFT ORDERABLES Final Res ult * [...] Electronically signed by: Julian Stephens M.D. Harish Calhoun MD IMG XR PROCEDURES Final R esult from Last 3 Months Insurance [employer]ETNA MEDICARE LICENSE OF [facility] MEDICARE Address: [facility] [id number] [place] [phone] T MEDICARE Member Subscriber Plan / Payer (Ef fective 2021-Present) Name:Oni Ko Relation to Subscriber:Self Name:Oni Ko Payer ID:[id number] (NAIC) Type:AETNA MEDICARE Address: [address] [place] [id number] [place] [phone] T MEDICARE Advance Directives For more information, please contact: [phone] * Full Code (Latest Code Status on File) Date Activated Date Inactivated Comments 12/13/2023 3:04 PM 12/13/2023 7:21 PM * Full Code Date Activated Date Inactivated Comments 09/10/2022 11:20 AM 09/10/2022 4:40 PM Care Teams Paid Search Specialist Relationship Specialty Start Date End Date Yusuf Quintanilla MD [address] [place] [id number] PCP - General 10/03/15
--- OUTSIDE RECORDS SUMMARY | 2024-10-06 13:22 | XMS_ITS | Encounter Summary ---
Author Organization 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
--- OUTSIDE RECORDS SUMMARY | 2024-10-06 13:22 | XMS_ITS | Clinical Summary ---
Author Organization [facility] Address [address] 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 10/09/2015 Family [...] (#1) 2023 Medical Devices Implanted Type Area Shopper'S Aide Device Identifier Shelf Expiration Date Model / Serial / Lot Pledget Ptfe 6x6mm [id number] - [id number] Implanted:Qty: 1 on 10/21/2015 by Marce Orr MD at [facility] N/A: Chest CR [employer] 06/29/2020 [id number] / / [id number] Insurance AETNA O [facility] Advance Directives For more information, please contact: [phone] Documents on File Type Date Recorded Patient Management Coordinator Expl anation Advance Directive POA 10/21/2015 6:03 AM Advance Directive Living Will 10/21/2015 6:03 AM roderick ko SR * Full Code (Latest Code Status on File) Date Activated Date Inactivated Comments 10/21/2015 12:09 PM 10/22/2015 11:30 AM * Full Code Date Activated Date Inactivated Comments 10/21/2015 5:01 AM 10/21/2015 12:09 PM Care Teams Rn Rehabilitation Relationship Specialty Start Date End Date Yusuf Quintanilla MD [address] [place] [address] PCP - General Family Practice 10/08/15
--- OUTSIDE RECORDS SUMMARY | 2024-10-06 13:22 | XMS_ITS | Encounter Summary ---
Author Organization [facility] Address [address] [place] [address] Care Team Providers Care Security Manager Name Role Phone Unavailable Primary Care Provider Unavailabl e Encounter Details Date Type Department Care Team (Late st Contact Info) Description 08/31/2023 Lab Requisition [facility] Lab [address] [facility], [place] [address] Court Benton MD [address] [facility] 3 [place] [address] Social History Tobacco Use Types Packs/Day Years Used Date Smoking Tobacco: Never Assessed Sex and Gender Information Value Date Recorded Sex Assigned at Not on file 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 Gender Identity Not on file Sexual Orientation Not on file documented as of this encounter Plan of Treatment Not on file documented as of this encounter Procedures Procedure Name Priority Date/Time Associated Diagnosis Comments DERMATOPATHOLOGY Routine 08/29/2023 3:33 AM CDT documented in this encounter Results * DERMATOPATHOLOGY (08/29/2023 3:33 AM CDT) Case Report Dermatopathology Report Case: [id number] Authorizing Provider: Court Benton MD Collected: 08/29/2023 03:33 AM Ordering Location: [facility] - Received: 08/31/2023 01:12 PM DermPath Lab Pathologist: Jaida Duff MD Specimen: Skin, left superior helix 4 2:23 PM CDT DERMATOPATHOLOGY LABORATORY Final Diagnosis Specimen A. SKIN, left superior helix: BASAL CELL CARCINOMA, NODULAR TYPE (C44.219) 4 2:23 PM CDT DERMATOPATHOLOGY LABORATORY at 1422 CDT Clinical History Non-healing, Irritated, R/o BCC 4 [...] characteristic determined by the Dermatopathology Laboratory at [facility], directed by Dr. Jolie Joshi. These tests need not be, and therefore are not, approved by the [place] Food and Drug Administration. The tests are used for clinical purposes. Billing Codes Specimen Charges Stain Charges 12693 1 4 2:23 PM CDT DERMATOPATHOLOGY LABORATORY Embedded Images 4 2:23 PM CDT DERMATOPATHOLOGY LABORATORY Pathology/Cytolo gy TISSUE SPECIMEN FROM SKIN / Unknown 08/29/2023 3:33 AM CDT 08/31/2023 1:[address] Benton MD LAB - PATHOLOGY/CYTOLOGY OR DERABLES Final Result DERMATOPATHOLOGY LABORATORY [facility] Department of Dermatology [address], [address]rd [place] [address], [facility] [phone] documented in this encounter Visit Diagnoses Not on filedocumented in this encounter
--- OUTSIDE RECORDS SUMMARY | 2024-10-06 13:22 | XMS_ITS | Referral Summary ---
Author Organization [facility] [address] [place] [address] [address] [place] [address] Care Team Providers Care Attendant Lodging Facilities Name Role Phone Yusuf Quintanilla MD Primary Care Provider [phone] Encounters Date Type Department Care Team Description 09/12/2024 Telephone [facility] Pulmonary [address] [facility] Medicine 8th [place] [address] [place] [phone] Day Snell, DIANNA 09/10/2024 Orders Only [facility] Pulmonary [address] [facility] Medicine 8th [place] [address] [place] [phone] Day Snell, RN 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) 09/10/2024 Documentation [facility] Pulmonary [address] [facility] Medicine 8th [place] [address] [place] [phone] Em Harp, BLUEPRINTING MACHINE OPERATOR 08/14/2024 10:30 AM CDT Infusion [facility] Outpatient [facility]fusion [facility] [address] [address] [facility] [address] [place] [phone] Other iron deficiency anemia (Primary Dx) 08/08/2024 9:45 AM CDT Office Visit [facility] Cardiology [address] [place] [address] Taras Ramirez MD Hx of CABG (Primary Dx); Pulmonary hypertension (HCC); Stage 3a chronic kidney disease (HCC) 08/07/2024 1:30 PM CDT Infusion [facility] [address] [facility] 7th [place] [address] Other iron deficiency anemia (Primary Dx) 08/06/2024 Orders Only [facility] Pulmonary [address] [facility] Medicine 8th [place] [address] [place] [phone] Day Snell RN 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 8th [place] [address] [place] [phone] Mary Pantoja NP 07/31/2024 Documentation [facility] Pulmonary [address] [facility] 8th [place] [address] [place] [phone] Em Harp CMA 07/31/2024 1:30 PM CDT Infusion [facility] [address] [facility] [address] [place] [phone] Other iron deficiency anemia (Primary Dx) 2024 Telephone [facility] [address] [facility] [address] [place] [phone] Kita, Physician 07/27/2024 Telephone [facility] [address] [facility] [address] [place] [phone] Carola Benitez, DIANNA 07/24/2024 Telephone [facility] Pulmonary [address] [facility] Medicine 8th [place] [address] [place] [phone] Mary Pantoja, JERICA 07/20/2024 Orders Only [facility] [address] [facility] [address] [place] [phone] Day Snell, DIANNA 07/19/2024 Telephone [facility] Pulmonary [address] [facility] 8th [place] [address] [place] [address] Day Snell RN Prior Auth ( IV feraheme) 07/19/2024 Orders Only [facility] [address] [facility] [address] [place] [address] Day Snell RN 07/19/2024 12:37 PM CDT - 07/19/2024 11:59 PM CDT Hospital Encounter [facility] [address] [place] [phone] 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 Gender Identity Male 09/02/2020 8:09 AM CDT [...] N/A EXTERNAL LAB SCRIBED eGFR in NonAfrican Somali 60 = or > 60 EXTERNAL LAB Blood 08/02/2024 us Taras Ramirez MD LAB BLOOD ORDERABLES Fin al Result EXTERNAL LAB * TRANSTHORACIC ECHO (TTE) COMPLETE W DOPPLER/CF WO CONTRAST (07/19/2024 4:26 PM CDT) Anatomical Region Laterality Modality Ultrasound 07/19/2024 2:53 PM CDT Narrative 07/20/2024 6:42 AM CDT [facility] [place] [address] Transthoracic Echocardiographic Report Patient Name: ONI KO J : 1945 (78y 11m) Gender: M Study Date: 07/19/2024 02:53:43 PM Ht(Inch): 69 Wt(Lb): 154.98 BSA: 1.85 Electrician'S Helper: Paula Waters Location: [facility] Order Provider: PERRYHARISH MOODY Heart Rate: 51 BMI: 22.88 Ref Provider: [...] Procedure Note Lucio Tran MD - 07/20/2024 [facility] [place] [address] Transthoracic Echocardiographic Report Patient Name: ONI KO J : 1945 (78y 11m) Gender: M Study Date: 07/19/2024 02:53:43 PM Ht(Inch): 69 Wt(Lb): 154.98 BSA: 1.85 Electrician'S Helper: Paula Waters Location: [facility] Order Provider:HARISH CALHOUN Heart Rate: 51 BMI: [...] LA Length 2C 4.08 cm MV Decel Joqj830.23 msec [ 104.00 - 258.00 ] LA [...] [ 1.00 - 2.00 ] PI ED Mcn480.45 m/sec PI Peak PG 24 mmHg PI PHT 420.97 sec Electronically Signed By: Lucio Tran MD 07/20/2024 6:41:36 AM CDT Harish Clahoun MD CV ECHO PROCEDURES Final Result * Pulmonary Function Test - (07/19/2024 1:06 PM CDT) Pathologist [facility] FVC PRE 3.10 L [facility] FVC %PRE PRED 83 % [facility] FEV1 PRE 1.39 L [facility] FEV1 %PRE PRED 50 % [facility] FEV1/FVC PRE 44.7 % [facility] Anatomical Region Laterality Modality PFT 07/19/2024 12:5 7 PM CDT Narrative 07/19/2024 1:28 PM CDT PFT performed at:->[facility] Adult PFT Lab- [facility] Procedure:->Spirometry Pulmonary [...] %HbO2 is age dependent. However, the [facility] Pulmonary Function Laboratory defines hypoxemia as a PaO2 <56 mm Hg or a %HbO2 <89%. Starting on May of 2024 the [facility] Pulmonary Function Laboratory utilizes race neutral GLI Global normative equations. us Harish Calhoun MD PFT ORDERABLES Final Res [...] signed by: Julian Stephens M.D. us Harish Calhoun MD IMG XR PROCEDURES Final R esult from Last 3 Months Insurance [employer] MEDICARE T MEDICARE T MEDICARE Advance Directives For more information, please contact: [phone] * Full Code (Latest Code Status on File) Date Activated Date Inactivated Comments 12/13/2023 3:04 PM 12/13/2023 7:21 PM * Full Code Date Activated Date Inactivated Comments 09/10/2022 11:20 AM 09/10/2022 4:40 PM Care Teams Attendant Lodging Facilities Relationship Specialty Start Date End Date Yusuf Quintanilla MD [address] [place] [address] PCP - General 10/03/15
--- OUTSIDE RECORDS SUMMARY | 2024-10-06 13:22 | XMS_ITS | Encounter Summary ---
Author Organization [facility] Address [address] [place] [address] Care Team Providers Care Machine Molder Name Role Phone Unavailable Primary Care Provider Unavailabl e Encounter Details Date Type Department Care Team (Late st Contact Info) Description 05/25/2018 Lab Requisition [facility] Care DermPath Lab [address] [facility], [place] [phone] Court Benton MD [address] [facility] [address] [place] [address] Social History Tobacco Use Types Packs/Day Years Used Date Smoking Tobacco: Never Assessed Sex and Gender Information Value Date Recorded Sex Assigned at Not on file Legal Sex Male 10:37 AM FIELD LABORER Gender Identity Not on file Sexual Orientation Not on file documented as of this encounter Plan of Treatment Not on file documented as of this encounter Procedures Procedure Name Priority Date/Time Associated Diagnosis Comments DERMATOPATH TECHNICAL REPORT Routine 05/24/2018 12:00 AM FIELD LABORER documented in this encounter Results * DERMATOPATH TECHNICAL REPORT (05/24/2018 12:00 AM FIELD LABORER) Case Report Dermatopathology Report Case: [id number] Authorizing Provider: Court Benton MD Collected: 05/24/2018 12:00 AM Pathologist: Marcelino Joshi MD Received: 05/25/2018 08:31 AM Specimen: Skin, left NLF corner of mouth 9 2:24 PM FIELD LABORER DERMATOPATHOLOGY LABORATORY Clinical History R/O BCC, non-healing. 9 2:24 PM FIELD LABORER DERMATOPATHOLOGY LABORATORY Gross Description Specimen A: Received is one formalin filled container labeled with the patient's name and designated left NLF corner of mouth. The specimen consists of a shave measuring [id number]. Jar 0. [facility] Dermatopathology Laboratory performed the technical component only. 9 2:24 PM FIELD LABORER DERMATOPATHOLOGY LABORATORY Embedded Images 9 2:24 PM [facility] DERMATOPATHOLOGY LABORATORY DISCLAIMER An external and internal positive and negative controls are appropriate for the histochemical, immunohistochemical and immunofluorescence stain(s) in this case (if any), except where stated explicitly. The performance characteristics of the stain(s) cited in this report were developed and its performance characteristic determined by the Dermatopathology Laboratory at [facility], directed by Dr. Jolie Joshi. These tests need not be, and therefore are not, approved by the [place] Food and Drug Administration. The tests are used for clinical purposes. 9 2:24 PM [facility] DERMATOPATHOLOGY LABORATORY at 1424 FIELD LABORER Pathology/Cytolog y TISSUE SPECIMEN FROM SKIN / Unknown 05/24/2018 05/25/2018 8:31 AM FIELD LABORER oCurt Benton MD LAB - PATHOLOGY/CYTOLOGY OR DERABLES Final Result DERMATOPATHOLOGY LABORATORY [facility] - Department of Dermatology [address] [facility] 5th [place] [address], [facility] [phone] documented in this encounter Visit Diagnoses Not on filedocumented in this encounter
--- OUTSIDE RECORDS SUMMARY | 2024-10-06 13:22 | XMS_ITS | Encounter Summary ---
Author Organization [facility] Address [address] [place] [address] Care Team Providers Care Boat Diesel Motor Mechanic Name Role Phone Unavailable Primary Care Provider Unavailabl e Encounter Details Date Type Department Care Team (Late st Contact Info) Description 09/02/2023 Lab Requisition [facility] - DermPath Lab [address] 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
--- OUTSIDE RECORDS SUMMARY | 2024-10-06 13:22 | XMS_ITS | Encounter Summary ---
Author Organization [facility] Address [address] [place] [address] Care Team Providers Care Forge Operator Name Role Phone Yusuf Quintanilla MD Primary Care Provider [phone] Encounter Details Date Type Department Care Team (Late st Contact Info) Description 07/27/2024 Telephone [facility] Outpatient Infusion Center [address] [facility] [address] [place] [phone] Carola Benitez RN Social History Tobacco Use [...] on file Legal Sex Male 8:32 AM COMPUTER CONSULTANT Gender Identity Male 09/02/2020 8:09 AM CDT Sexual Orientation Not on file documented as of this encounter Plan of Treatment Not on file documented as of this encounter Visit Diagnoses Not on filedocumented in this encounter Care Teams Forge Operator Relationship Specialty Start Date End Date Yusuf Quintanilla MD [address] [place] [address] PCP - General 10/03/15 documented as of this encounter
--- NOTE | 2024-10-06 13:32 | ECG_ITS ---
Test Date: 2024-10-06 13:45:24 Measurements Intervals [place] Rate: 78 P: 12 MA: 141 QRS: -81 QRSD: 153 T: 79 QT: 403 QTc: 461 Interpretive Statements SINUS RHYTHM LEFT AXIS DEVIATION LEFT BUNDLE BRANCH BLOCK BASELINE ARTIFACT- I, II, V1-V2, V6 ABNORMAL ECG Compared to ECG 08/22/2024 04:35:55 NO SIGNIFICANT CHANGE Electronically Signed On 10-06-2024 16:21:37 CDT by Nils Valle D.O.
[2024-10-06] MEDS: ALBUTEROL SULFATE NEB 2.5 MG/3 ML INH 10 MG INHALATION (13:40)
--- NOTE | 2024-10-06 13:40 | ED_ITS ---
HPI - General Adult General Chief complaint: Shortness of Breath/Dyspnea Stated complaint: SOB Time Seen by Provider: 10/06/24 13:29 History of Present Illness HPI narrative: 79-year-old male with history of COPD, CHF on 6 L of oxygen at all time present to the emergency department for evaluation for worsening shortness of breath. Patient states he was just admitted to [facility] for a GI bleed and was at [facility] for rehab up until Tuesday. Patient was discharged to his home on Tuesday and states he has had worsening shortness of breath since then. Patient present to the emergency department today and respiratory distress. Patient is normally on 6 L and was tripod breathing when he arrived to the front end alignment specialist. Patient denies any associated chest pain. Related Data Home Medications ?Medication ?Instructions ?Recorded ?Confirmed ?Last Taken ?Type macitentan 10 mg tablet (Opsumit) 10 mg PO DAILY 01/14/23 10/06/24 10/06/24 09:00 History 10 mg hydrocodone 10 mg-acetaminophen 1 tablet PO BID PRN pain 08/19/24 10/06/24 Unknown History 325 mg tablet losartan 25 mg tablet 25 mg PO DAILY 08/19/24 10/06/24 10/06/24 09:00 History 25 mg metoprolol succinate 25 mg 25 mg PO DAILY 08/19/24 10/06/24 10/06/24 09:00 History tablet,extended release 24 hr 25 mg potassium chloride 20 mEq 20 meq PO DAILY 08/19/24 10/06/24 10/06/24 09:00 History tablet,extended release (K-Tab) 20 mEq sildenafil (pulm.hypertension) 20 60 mg PO Q12H 08/19/24 10/06/24 10/06/24 09:00 History mg tablet 60 mg budesonide 160 mcg-glycopyr 9 2 inh inhalation .am 10/06/24 10/06/24 10/06/24 09:00 History mcg-formot 4.8 mcg/actuation HFA 2 inh inhaler (Breztri Aerosphere) citalopram 20 mg tablet 20 mg PO DAILY 10/06/24 10/06/24 10/06/24 09:00 History 20 mg polyethylene glycol 3350 17 gram 17 g PO QAM PRN constipation 10/06/24 10/06/24 Unknown History oral powder packet (Miralax) Allergies Allergy/AdvReac Type Severity Reaction Status Date / Time crab Allergy Intermediate Hives Verified 10/06/24 18:17 tiotropium (From Spiriva Allergy Mild Dizziness Verified 10/06/24 18:17 with HandiHaler) Review of Systems 2 Review of Systems: All systems reviewed & are unremarkable except as noted in HPI and below PMFSH Past Medical History Medical History (Updated 10/06/24 @ 15:23 by Burton Domínguez MD) Gastric ulcer Acute on chronic anemia Hematemesis Central sleep apnea Lumbar stenosis with neurogenic claudication Lumbar radiculopathy Neuropathy Chronic respiratory failure with hypoxia, on home oxygen therapy Combined systolic and diastolic cardiac dysfunction Severe pulmonary hypertension Right ventricular systolic dysfunction Obstructive sleep apnea Intolerant to CPAP. Benign essential hypertension Erectile dysfunction Hypogonadism Solitary pulmonary nodule Atherosclerosis of aorta Generalized anxiety disorder Raynaud's syndrome without gangrene Hypertension Hypothyroidism Hyperlipidemia Depression Emphysema lung Coronary artery disease Surgical History Surgical History History of three vessel coronary artery bypass History of cardiac cath Family History Family History Father Hypertension Alcoholism Social History Social History Social History: Surrogate medical decision maker: Constantine Ko Jr., son. Code status: DNR/DNI Smoking packs per day: 1 Smoking cigarettes per day: 20.0 Years smoked: 40 Smoking pack-years: 40.00 Smoking status: Former smoker Tobacco type: cigarettes Smoking end date: 10/20/04 Alcohol intake: former Drinks per week: 1 Substance use: never Substance use type: does not use Do You Feel Safe in your Home?: Yes Lack of Transportation: No Lack of Food: Never True Current Housing: I Have Housing Concerned About Future Housing: No Difficulty Paying Gas/Electric Bills: No Difficulty Paying for Meds: No Currently Unemployed: No Education: Trade/Vocational Certificate Difficulty w/ Childcare or Family Care: No Living arrangements: with family Additional living arrangements comments: Lives with spouse in [place]. Occupation/Education: retired Spiritual care concerns: No Exam 2 Narrative: APPEARANCE: Ill-appearing HEAD: normocephalic, atraumatic. EYES: PERRLA/EOMI, conjunctivae clear. NOSE: Normal no drainage EARS:TMS clear with good light reflex. THROAT: Pharynx clear, no exudate. NECK: Supple. No adenopathy, no masses. RESPIRATORY: Expiratory wheeze with congestion CARDIOVASCULAR: Regular rate and rhythm without murmurs rubs or gallops. ABDOMINAL: Soft, nontender, nondistended, normal bowel sounds MUSCULOSKELETAL: Moves all extremities. Strength/ROM intact, No edema, No calf tenderness. NEURO: Alert. Cranial nerves II through XII intact. Grossly intact SKIN: Warm, dry. Normal Color Course Vital Signs Vital signs: Vital Signs Temperature 98.0 F 10/06/24 13:37 Pulse Rate 82 10/06/24 13:37 Respiratory Rate 35 H 10/06/24 13:37 Blood Pressure 139/90 10/06/24 13:37 Pulse Oximetry 88 L 10/06/24 13:37 Oxygen Delivery Nasal Cannula 10/06/24 13:37 Oxygen Flow Rate 6 10/06/24 13:37 Temperature 98.4 F 10/06/24 17:02 Pulse Rate 85 10/06/24 18:04 Respiratory Rate 25 H 10/06/24 18:04 Blood Pressure 118/84 10/06/24 17:02 Pulse Oximetry 100 10/06/24 17:51 Oxygen Delivery BiPAP 10/06/24 17:51 Oxygen Flow Rate 6 10/06/24 13:37 Medical Decision Making [facility] Narrative Medical decision making narrative: 79-year-old male presents emergency department for evaluation for respiratory distress. Patient was having significant difficulty breathing even on his home 6 L. Patient had minimal breath sounds bilaterally. Patient was placed on BiPAP and a continuous neb of 10 mg of albuterol was given. Patient did feel significantly improved and his work of breathing improved. Chest x-ray shows no evidence of acute pneumonia, patient is afebrile but does have a leukocytosis of 11.0. Hemoglobin of 13.1. Patient has no significant evidence of fluid overload in patient's pro BNP is similar to his baseline. Patient's lactic acid was elevated and this will be retract. Patient's UA shows no are underlying evidence of infection patient was negative for influenza RSV and for COVID. Case was discussed with the hospitalist and patient was accepted for admission Initial differential did and cleared fluid overload congestive heart failure so aggressive IV hydration was not performed. Patient's lactic acid did not significantly improve with oxygenation and patient's BNP is similar to his baseline. Patient was treated with L of IV fluids after the repeat lactic acid. This was discussed with the hospitalist as well. Differential Diagnosis Differential Diagnosis: COVID, RSV, influenza, COPD, CHF, pulmonary embolism, pneumonia Vital Signs Vital Signs: Vital Signs Temperature 98.0 F 10/06/24 13:37 Pulse Rate 82 10/06/24 13:37 Respiratory Rate 35 H 10/06/24 13:37 Blood Pressure 139/90 10/06/24 13:37 Pulse Oximetry 88 L 10/06/24 13:37 Oxygen Delivery Nasal Cannula 10/06/24 13:37 Oxygen Flow Rate 6 10/06/24 13:37 Temperature 98.4 F 10/06/24 17:02 Pulse Rate 85 10/06/24 18:04 Respiratory Rate 25 H 10/06/24 18:04 Blood Pressure 118/84 10/06/24 17:02 Pulse Oximetry 100 10/06/24 17:51 Oxygen Delivery BiPAP 10/06/24 17:51 Oxygen Flow Rate 6 10/06/24 13:37 Lab Data Lab results reviewed: Yes I reviewed the patient's lab results. 10/06/24 13:33 10/06/24 13:33 Labs: Lab Results 10/06/24 10/06/24 10/06/24 Range/Units 13:33 13:34 13:52 WBC 11.0 H (4.5-10.0) K/mm3 RBC 4.65 (4.6-6.20) M/mm3 Hgb 13.1 L D (14.0-18.0) g/dL Hct 44.1 (42.0-52.0) % MCV 94.8 (80-100) fl MCH 28.2 (26-34) pg MCHC 29.7 L (32-36) g/dl RDW 17.2 H (11.5-14.5) % Plt Count 173 (150-375) k/mm3 MPV 10.1 (7.4-10.4) fl Immature Gran % (Auto) 2.1 H (0-0.5) % Neut % (Auto) 92.8 H (45.5-73.1) % Lymph % (Auto) 2.3 L (18.3-44.2) % [place] % (Auto) 2.4 L (2.6-8.5) % Eos % (Auto) 0.1 (0-4.4) % Baso % (Auto) 0.3 (0.2-1.2) % Lymph # (Auto) 0.25 L (0.9-3.2) K/mm3 [place] # (Auto) 0.3 (0.1-0.6) K/mm3 Eos # (Auto) 0.0 (0-0.3) K/mm3 Baso # (Auto) 0.0 (0.0-0.1) K/mm3 Abs Immat Gran (auto) 0.23 H (0.00-0.031) K/mm3 Absolute Neuts (auto) 10.3 H (1.3-6.7) K/mm3 Absolute Nucleated RBC 0.000 (0.0-0.012) K/mm3 Band Neutrophils % Not Reportable Nucleated RBC % 0.0 (0.0-0.2) % Platelet Estimate Adequate (Adequate) Poikilocytosis 1+ Schistocytes None seen PT 12.9 (11.1-14.7) Seconds INR 1.0 APTT 29.2 (22.3-36.8) Seconds Methemoglobin 0.2 (0-1.5) %THb Expiratory Pressure 6 CMH2O Inspiratory Pressure 12 CMH2O Sodium 135 L (137-145) mmol/L Potassium 4.7 (3.4-5.0) mmol/L Chloride 97 L (98-107) mmol/L Carbon Dioxide 26 (22-30) mmol/L Anion Gap 12 (4-12) mmol/L BUN 48 H D (9-20) mg/dL Creatinine 1.30 (0.7-1.3) mg/dL Estim Creat Clear Calc 38 ml/min Estimated GFR 54 L (59 - ) Glucose 142 H (65-110) mg/dL Lactic Acid 5.0 H* (0.7-2.0) mmol/L Calcium 9.6 (8.4-10.2) mg/dL Total Bilirubin 0.9 (0.2-1.3) mg/dL AST 74 H (17-59) U/L ALT 139 H (6-50) U/L Alkaline Phosphatase 240 H (38-126) U/L NT-Pro-B Natriuret Pep 567 H (19.9-100) pg/mL Total Protein 7.3 (6.3-8.2) g/dL Albumin 4.1 (3.5-5.1) g/dL Urine Color (Yellow) Urine Appearance (Clear) Urine pH (5.0-9.0) Ur Specific [place] (1.001-1.035) Urine Protein (Negative) mg/dL Urine Glucose (UA) (Negative) mg/dL Urine Ketones (Negative) mg/dL Ur Blood (Man) (Negative) Urine Nitrate (Negative) Urine Bilirubin (Negative) Urine Urobilinogen (<2.0) mg/dL Add Ur Microanalysis Leukocyte Esterase Rfl (Negative) ANITA/UL Urine RBC (0-2) /hpf Urine WBC (0-3) /hpf Ur Squamous Epith Cells (Few) /hpf Urine Bacteria /hpf Urine Casts Hyaline Casts (None) /lpf Influenza A (RT-PCR) Negative (Negative) Influenza B (RT-PCR) Negative (Negative) RSV (RT-PCR) Negative (Negative) SARS-CoV-2 RNA (RT-PCR) Negative (Negative) 10/06/24 Range/Units 14:17 WBC (4.5-10.0) K/mm3 RBC (4.6-6.20) M/mm3 Hgb (14.0-18.0) g/dL Hct (42.0-52.0) % MCV (80-100) fl MCH (26-34) pg MCHC (32-36) g/dl RDW (11.5-14.5) % Plt Count (150-375) k/mm3 MPV (7.4-10.4) fl Immature Gran % (Auto) (0-0.5) % Neut % (Auto) (45.5-73.1) % Lymph % (Auto) (18.3-44.2) % [place] % (Auto) (2.6-8.5) % Eos % (Auto) (0-4.4) % Baso % (Auto) (0.2-1.2) % Lymph # (Auto) (0.9-3.2) K/mm3 [place] # (Auto) (0.1-0.6) K/mm3 Eos # (Auto) (0-0.3) K/mm3 Baso # (Auto) (0.0-0.1) K/mm3 Abs Immat Gran (auto) (0.00-0.031) K/mm3 Absolute Neuts (auto) (1.3-6.7) K/mm3 Absolute Nucleated RBC (0.0-0.012) K/mm3 Band Neutrophils % Nucleated RBC % (0.0-0.2) % Platelet Estimate (Adequate) Poikilocytosis Schistocytes PT (11.1-14.7) Seconds INR APTT (22.3-36.8) Seconds Methemoglobin (0-1.5) %THb Expiratory Pressure CMH2O Inspiratory Pressure CMH2O Sodium (137-145) mmol/L Potassium (3.4-5.0) mmol/L Chloride (98-107) mmol/L Carbon Dioxide (22-30) mmol/L Anion Gap (4-12) mmol/L BUN (9-20) mg/dL Creatinine (0.7-1.3) mg/dL Estim Creat Clear Calc ml/min Estimated GFR (59 - ) Glucose (65-110) mg/dL Lactic Acid (0.7-2.0) mmol/L Calcium (8.4-10.2) mg/dL Total Bilirubin (0.2-1.3) mg/dL AST (17-59) U/L ALT (6-50) U/L Alkaline Phosphatase (38-126) U/L NT-Pro-B Natriuret Pep (19.9-100) pg/mL Total Protein (6.3-8.2) g/dL Albumin (3.5-5.1) g/dL Urine Color Yellow (Yellow) Urine Appearance Clear (Clear) Urine pH 5.0 (5.0-9.0) Ur Specific [place] 1.022 (1.001-1.035) Urine Protein Trace (Negative) mg/dL Urine Glucose (UA) Negative (Negative) mg/dL Urine Ketones Negative (Negative) mg/dL Ur Blood (Man) Negative (Negative) Urine Nitrate Negative (Negative) Urine Bilirubin Negative (Negative) Urine Urobilinogen 1.0 (<2.0) mg/dL Add Ur Microanalysis Reviewed Leukocyte Esterase Rfl Negative (Negative) ANITA/UL Urine RBC 0-2 (0-2) /hpf Urine WBC 0-5 (0-3) /hpf Ur Squamous Epith Cells None seen (Few) /hpf Urine Bacteria None seen /hpf Urine Casts 6-10 Hyaline Casts Present (None) /lpf Influenza A (RT-PCR) (Negative) Influenza B (RT-PCR) (Negative) RSV (RT-PCR) (Negative) SARS-CoV-2 RNA (RT-PCR) (Negative) ABG Data ABG results: 10/06/24 13:52 Puncture Site Left brachial ABG pH 7.389 ABG pCO2 39.8 ABG pO2 165.4 H ABG PO2/FiO2 Ratio 2.21 ABG HCO3 23.5 ABG O2 Saturation 99.1 ABG O2 Content 18.3 ABG Base Excess -1.3 A-a Gradient 327.1 Oxyhemoglobin 98.5 Carboxyhemoglobin 0.6 Reduced Hemoglobin 0.7 Total Hemoglobin 13.0 O2 Delivery Device Non-invasive vent O2 Liters/Min Not Reportable Vent Rate 4 FiO2 75 Imaging Data Radiologist's impression: Impressions Chest X-Ray 10/06/24 14:37 IMPRESSION: No new acute cardiopulmonary process. Improving right medial basilar airspace disease and trace right effusion. ECG Data EKG #1: EKG Interpretation: normal rate, sinus rhythm, non-specific ST changes, LBBB, left axis and no acute changes Discharge Plan Discharge Clinical Impression: Acute respiratory distress, COPD exacerbation Patient Disposition: Still a Patient Condition: Serious
--- NOTE | 2024-10-06 13:45 | ECG_ITS ---
Test Date: 2024-10-06 13:28:28 Measurements Intervals [place] Rate: 91 P: 76 [place]: 168 QRS: -83 QRSD: 142 T: 85 QT: 372 QTc: 458 Interpretive Statements SINUS RHYTHM LEFT AXIS DEVIATION LEFT BUNDLE BRANCH BLOCK BASELINE ARTIFACT- I, II, III, AVR, AVL, AVF, V1-V6 ABNORMAL ECG Compared to ECG 08/22/2024 04:35:55 HEART RATE HAS INCREASED Electronically Signed On 10-06-2024 16:20:41 CDT by Nils Valle D.O.
[2024-10-06 13:48] LABS: Basophils Percent Auto 0.3 % (0.2-1.2); Eosinophils Percent Auto 0.1 % (0-4.4); Hematocrit 44.1 % (42.0-52.0); Hemoglobin 13.1 g/dL (14.0-18.0); Immature Granulocyte Absolute 0.23 K/mm3 (0.00-0.031); Immature Granulocyte Percent A 2.1 % (0-0.5); Lymphocytes Absolute Auto 0.25 K/mm3 (0.9-3.2); Lymphocytes Percent Auto 2.3 % (18.3-44.2); Mean Corpuscular HGB Conc 29.7 g/dl (32-36); Mean Corpuscular Hemoglobin 28.2 pg (26-34); Mean Corpuscular Volume 94.8 fl (80-100); Mean Platelet Volume 10.1 fl (7.4-10.4); Monocytes Absolute Auto 0.3 K/mm3 (0.1-0.6); Monocytes Percent Auto 2.4 % (2.6-8.5); Neutrophils Absolute Auto 10.3 K/mm3 (1.3-6.7); Neutrophils Percent Auto 92.8 % (45.5-73.1); Platelet Count Result 173 k/mm3 (150-375); Red Blood Count 4.65 M/mm3 (4.6-6.20); Red Cell Distribution Width 17.2 % (11.5-14.5)
--- OUTSIDE RECORDS SUMMARY | 2024-10-06 13:53 | XMS_ITS | Clinical Summary ---
Author Organization [facility] Address [address] [place] [address] Care Team Providers Care Missile Inspector Preflight Name Role Phone Unavailable Primary Care Provider Unavailabl e Source Comments [facility],non-owned Affiliates and Associated Physician Practices is amultiple site organization consisting of ambulatory clinics and hospital sitesin [place], [place], [place] and [place]. This disclosure is being madepursuant to the Care Everywhere program and may not contain all information available regarding this patient. 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
--- OUTSIDE RECORDS SUMMARY | 2024-10-06 13:53 | XMS_ITS | Encounter Summary ---
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
--- OUTSIDE RECORDS SUMMARY | 2024-10-06 13:53 | XMS_ITS | Encounter Summary ---
Author Organization [facility] Address [address] [place] [address] Care Team Providers Care Product Development Manager Name Role Phone Unavailable Primary Care Provider Unavailabl e Encounter Details Date Type Department Care Team (Late st Contact Info) Description 08/31/2023 Lab Requisition [facility] - DermPath Lab [address] [place] [place] [address] Court Benton MD [address] 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 Gender Identity Not on file Sexual Orientation Not on file documented as of this encounter Plan of Treatment Not on file documented as of this encounter Procedures Procedure Name Priority Date/Time Associated Diagnosis Comments DERMATOPATHOLOGY Routine 08/29/2023 3:33 AM CDT documented in this encounter Results * DERMATOPATHOLOGY (08/29/2023 3:33 AM CDT) Case Report Dermatopathology Report Case: [id number] Authorizing Provider: Court Benton MD Collected: 08/29/2023 03:33 AM Ordering Location: [facility] - Received: 08/31/2023 01:12 PM [...] characteristic determined by the Dermatopathology Laboratory at [facility], directed by Dr. Jolie Joshi. These tests need not be, and therefore are not, approved by the [place] Food and Drug Administration. The tests are used for clinical purposes. Billing Codes Specimen Charges Stain Charges 15093 1 4 2:23 PM CDT DERMATOPATHOLOGY LABORATORY Embedded Images 4 2:23 PM CDT DERMATOPATHOLOGY LABORATORY Pathology/Cytolo gy TISSUE SPECIMEN FROM SKIN / Unknown 08/29/2023 3:33 AM CDT 08/31/2023 1:[address] Benton MD LAB - PATHOLOGY/CYTOLOGY OR DERABLES Final Result DERMATOPATHOLOGY LABORATORY [facility] - Department of Dermatology [address] [place] [address], [facility] [phone] documented in this encounter Visit Diagnoses Not on filedocumented in this encounter
--- OUTSIDE RECORDS SUMMARY | 2024-10-06 13:53 | XMS_ITS | Encounter Summary ---
Author Organization [facility] Address [address] [place] [address] Care Team Providers Care Wool Supplier Name Role Phone Unavailable Primary Care Provider Unavailabl e Encounter Details Date Type Department Care Team (Late st Contact Info) Description 09/02/2023 Lab Requisition [facility] - DermPath Lab [address] [place] [address] Court Benton MD [address] [facility] [address] [place] [address] Social History Tobacco Use Types Packs/Day Years Used Date Smoking Tobacco: Never Assessed Sex and Gender Information Value Date Recorded Sex Assigned at Not on file 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
--- OUTSIDE RECORDS SUMMARY | 2024-10-06 13:53 | XMS_ITS | Clinical Summary ---
Author Organization [facility] [address] Address [address] [place] [address] Care Team Providers Care Learning And Development Specialist Name Role Phone Yusuf Quintanilla MD Primary Care Provider [phone] Allergies Active Allergy Reactions Criticality Noted Date [...] Type Department Care Team Description 09/12/2024 Telephone [facility] [address] [facility] 8th [place] [address] [place] [address] Day Snell RN 09/10/2024 Orders Only [facility] [address] [facility] 8th [place] [address] [place] [address] Day Snell RN 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) 09/10/2024 Documentation [facility] [address] [facility] 8th [place] [address] [place] [address] Em Harp, ALYSON 08/14/2024 10:30 AM CDT Infusion [facility] [address] [facility] [address] [place] [address] Other iron deficiency anemia (Primary Dx) 08/08/2024 9:45 AM CDT Office Visit [facility] Cardiology [address] [place] [phone] Taras Ramirez MD Hx of CABG (Primary Dx); Pulmonary hypertension (HCC); Stage 3a chronic kidney disease (HCC) 08/07/2024 1:30 PM CDT Infusion [facility] Special[facility] Infusion [facility] [address] [facility] 7th [place] [address] Other iron deficiency anemia (Primary Dx) 08/06/2024 Orders Only [facility] [address] [facility] 8th [place] [address] [place] [address] Day Snell RN 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) 08/01/2024 Telephone [facility] Cardiology [address] [place] [phone] Taras Ramirez MD 08/01/2024 Telephone [facility] [address] [facility] 8th [place] [address] [place] [address] Mary Pantoja NP 07/31/2024 1:30 PM CDT Infusion [facility]fusion [facility] [address] [place] [phone] Other iron deficiency anemia (Primary Dx) 07/31/2024 Documentation [facility] Advanced [facility] 8th [place] [address] Em Harp CMA 2024 Telephone [facility] [address] [place] [address] [address] [place] [phone] No, Physician 07/27/2024 Telephone [facility] [address] [place] [address] [address] [place] [phone] Carola Benitez RN 07/24/2024 Telephone [facility] [address] [place] [address] [place] [phone] Mary Pantoja NP 07/20/2024 Orders Only [facility] [address] [place] [address] [phone] Day Snell RN 07/19/2024 2:31 PM CDT - 07/19/2024 11:59 PM CDT Hospital Encounter [facility] Cardiac Diagnostic Lab [address] [place] [phone] 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); Chronic obstructive pulmonary disease with acute exacerbation (HCC); Chronic right-sided CHF (congestive heart failure) (HCC) Discharge Disposition: Discharge to home or self care 07/19/2024 1:50 PM CDT Office Visit [facility]monary [address] [place] [address] Medicine 8th [place] [address] Mary Pantoja NP 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) 07/19/2024 12:54 PM CDT - 07/19/2024 11:59 PM CDT Hospital Encounter [facility] [address] [place] [phone] 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); Chronic obstructive pulmonary disease with acute exacerbation (HCC); Chronic right-sided CHF (congestive heart failure) (HCC) Discharge Disposition: Discharge to home or self care 07/19/2024 12:37 PM CDT - 07/19/2024 11:59 PM CDT Hospital Encounter [facility] [address] [place] [address] 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); Chronic obstructive pulmonary disease with acute exacerbation (HCC); Chronic right-sided CHF (congestive heart failure) (HCC) Discharge Disposition: Discharge to home or self care 07/19/2024 Telephone [facility] Advanced Medicine 8th [place] [address] [place] [phone] Day Snell RN Prior Auth ( IV feraheme) 07/19/2024 Orders Only [facility]fusion [facility] [address] [place] [phone] Day Snell, DIANNA 07/06/2024 Documentation [facility] [address] [facility] Medicine 8th [place] [address] [place] [phone] Em Harp, ALYSON from Last 3 Months [...] stage 3, GFR 30-59 ml/min ([facility]) 08/08/2024 Family History Medical History [...] on file 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 Gender Identity Male 09/02/2020 8:09 AM [...] N/A EXTERNAL LAB SCRIBED eGFR in NonAfrican Russian 60 = or > 60 EXTERNAL LAB Blood 08/02/2024 us Taras Ramirez MD LAB BLOOD ORDERABLES Fin al Result EXTERNAL LAB * TRANSTHORACIC ECHO (TTE) COMPLETE W DOPPLER/CF WO CONTRAST (07/19/2024 4:26 PM CDT) Anatomical Region Laterality Modality Ultrasound 07/19/2024 2:53 PM CDT Narrative 07/20/2024 6:42 AM CDT [facility] Cardiac [place] [address] Transthoracic Echocardiographic Report Patient Name: ONI KO J : 1945 (78y 11m) Gender: M Study Date: 07/19/2024 02:53:43 PM Ht(Inch): 69 Wt(Lb): 154.98 BSA: 1.85 Business Improvement Manager: Paula Waters Location: [facility] Order Provider: HARISH CALHOUN Heart Rate: 51 [...] Procedure Note Lucio Tran MD - 07/20/2024 [facility] [place] [address] Transthoracic Echocardiographic Report Patient Name: ONI KO J : 1945 (78y 11m) Gender: M Study Date: 07/19/2024 02:53:43 PM Ht(Inch): 69 Wt(Lb): 154.98 BSA: 1.85 Business Improvement Manager: Paula Waters Location: [facility] Order Provider:HARISH CALHOUN Heart Rate: 51 BMI: [...] LA Length 2C 4.08 cm MV Decel Rclu101.23 msec [ 104.00 - 258.00 ] LA [...] [ 1.00 - 2.00 ] PI ED Kgk198.45 m/sec PI Peak PG 24 mmHg PI PHT 420.97 sec Electronically Signed By: Lucio Tran MD 07/20/2024 6:41:36 AM CDT us Harish Calhoun MD CV ECHO PROCEDURES Final Result * Pulmonary Function Test - (07/19/2024 1:06 PM CDT) FVC PRE 3.10 L [facility] FVC %PRE PRED 83 % [facility] FEV1 PRE 1.39 L [facility] FEV1 %PRE PRED 50 % [facility] FEV1/FVC PRE 44.7 % [facility] Anatomical Region Laterality Modality PFT 07/19/2024 12:5 7 PM CDT Narrative 07/19/2024 1:28 PM CDT PFT performed at:->[facility] Adult PFT Lab- [facility] Procedure:->Spirometry Pulmonary Function [...] and %HbO2 is age dependent. However, the [facility] Pulmonary Function Laboratory defines hypoxemia as a PaO2 <56 mm Hg or a %HbO2 <89%. Starting on May of 2024 the [facility] Pulmonary Function Laboratory utilizes race neutral [...] Advance Directives For more information, please contact: [phone] * Full Code (Latest Code Status on File) Date Activated Date Inactivated Comments 12/13/2023 3:04 PM 12/13/2023 7:21 PM * Full Code Date Activated Date Inactivated Comments 09/10/2022 11:20 AM 09/10/2022 4:40 PM Care Teams Learning And Development Specialist Relationship Specialty Start Date End Date Yusuf Quintanilla MD [address] [place] [address] PCP - General 10/03/15
--- OUTSIDE RECORDS SUMMARY | 2024-10-06 13:53 | XMS_ITS | Encounter Summary ---
Author Organization [facility] Address [address] [place] [address] Care Team Providers Care Supervisor Production Name Role Phone Unavailable Primary Care Provider Unavailabl e Encounter Details Date Type Department Care Team (Late st Contact Info) Description 05/25/2018 Lab Requisition [facility] Care DermPath Lab [address] [facility], [place] [phone] Court Benton MD [address] [facility] 3 [place] [address] Social History Tobacco Use Types Packs/Day Years Used Date Smoking Tobacco: Never Assessed Sex and Gender Information Value Date Recorded Sex Assigned at Not on file Legal Sex Male 10:37 AM TEACHER DRAMA Gender Identity Not on file Sexual Orientation Not on file documented as of this encounter Plan of Treatment Not on file documented as of this encounter Procedures Procedure Name Priority Date/Time Associated Diagnosis Comments DERMATOPATH TECHNICAL REPORT Routine 05/24/2018 12:00 AM TEACHER DRAMA documented in this encounter Results * DERMATOPATH TECHNICAL REPORT (05/24/2018 12:00 AM TEACHER DRAMA) Case Report Dermatopathology Report Case: [id number] Authorizing Provider: Court Benton MD Collected: 05/24/2018 12:00 AM Pathologist: Marcelino Joshi MD Received: 05/25/2018 08:31 AM Specimen: Skin, left NLF corner of mouth 9 2:24 PM [facility] DERMATOPATH[facility]Y LABORATORY Clinical History R/O BCC, non-healing. 9 2:24 PM [facility]ERMATOPATH[facility] Gross Description Specimen A: Received is one formalin filled container labeled with the patient's name and designated left NLF corner of mouth. The specimen consists of a shave measuring 1u4m0uf. Jar 0. [facility] Dermatopathology Laboratory performed the technical component only. 9 2:24 PM [facility] DERMATOPATHOLOGY LABORATORY Embedded Images 9 2:24 PM [facility] DERMATOPATHOLOGY LABORATORY DISCLAIMER An external and internal positive and negative controls are appropriate for the histochemical, immunohistochemical and immunofluorescence stain(s) in this case (if any), except where stated explicitly. The performance characteristics of the stain(s) cited in this report were developed and its performance characteristic determined by the Dermatopathology Laboratory at [facility], directed by Dr. Jolie Joshi. These tests need not be, and therefore are not, approved by the [place] Food and Drug Administration. The tests are used for clinical purposes. 9 2:24 PM [facility] DERMATOPATHOLOGY LABORATORY at [address] TEACH[address] DRAMA Pathology/Cytolog y TISSUE SPECIMEN FROM SKIN / Unknown 05/24/2018 05/25/2018 8:[address] Benton MD LAB - PATHOLOGY/CYTOLOGY OR DERABLES Final Result DERMATOPATHOLOGY LABORATORY [facility] - Department of Dermatology [address] [facility] 5th [place] [address], [facility] [phone] documented in this encounter Visit Diagnoses Not on filedocumented in this encounter
[2024-10-06 13:54] LABS: Alveolar/Arterial O2 Gradient 327.1 mmHg; Base Excess ABG -1.3 mEq/l (+/-2.0); Carboxyhemoglobin 0.6 % THb (0-2.0); Fractional Inspired Oxygen 75 %; HCO3 ABG 23.5 mEq/l (22.0-26.0); Methemoglobin ABG 0.2 %THb (0-1.5); Oxygen Content ABG 18.3 %vol (16.0-22.0); Oxygen Saturation ABG 99.1 % (95.0-100.0); Oxyhemoglobin 98.5 % THb (90.0-100.0); PCO2 ABG 39.8 mmHg (35.0-45.0); PO2 ABG 165.4 mmHg (80.0-100.0); PO2 FiO2 Ratio Arterial Blood 2.21 %; Reduced Hemoglobin 0.7 %THb (0-5.0); pH ABG 7.389 (7.350-7.450)
--- OUTSIDE RECORDS SUMMARY | 2024-10-06 13:54 | XMS_ITS | Encounter Summary ---
Author Organization [facility] Address [address] [place] [address] Phone Care Team Providers Care Esters And Emulsifiers Supervisor Name Role Phone Yusuf Quintanilla MD Primary Care Provider [phone] Encounter Details Date Type Department Care Team [...] on file Legal Sex Male 8:32 AM SOFTWARE ENGINEERING MANAGER Gender Identity Male 09/02/2020 8:09 AM CDT [...] on filedocumented in this encounter Care Teams Esters And Emulsifiers Supervisor Relationship Specialty Start Date End Date Yusuf Quintanilla MD [address] [place] [address] PCP - General 10/03/15 documented as of this encounter
--- OUTSIDE RECORDS SUMMARY | 2024-10-06 13:54 | XMS_ITS | Referral Summary ---
Author Organization [facility] [address] [place] [address] [address] [place] [address] Care Team Providers Care Cook Night Name Role Phone Yusuf Quintanilla MD Primary Care Provider Encounters Date Type Department Care Team Description 09/12/[address] [facility] [address] [facility] Medicine 8th [place] [address] [place] [phone] Day Snell, DAINNA 09/10/[address] 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 [address] [facility] Medicine 8th [place] [address] [place] [phone] Em Harp, PUG MACHINE OPERATOR 08/14/2024 10:30 AM CDT Infusion [facility] Outpatient Infusion Center [address] [facility] [address] [place] [phone] Other iron deficiency anemia (Primary Dx) 08/08/2024 9:45 AM CDT Office Visit [facility] Medical Group Cardiology [address] [place] [address] Taras Ramirez MD Hx of CABG (Primary Dx); Pulmonary hypertension (HCC); Stage 3a chronic kidney disease (HCC) 08/07/2024 1:30 PM CDT Infusion [facility] Specialty Infusion Center [address] [facility] Advanced Medicine 7th [place] [address] Other iron deficiency anemia (Primary Dx) 08/06/[address] 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 [address] [facility] 8th [place] [address] [place] [phone] Mary Pantoja NP 07/31/[address] [facility] [address] [facility] 8th [place] [address] [place] [phone] Em Harp CMA 07/31/2024 1:30 PM CDT Infusion [facility]fusion [facility] [address] [facility] [address] [place] [phone] Other iron deficiency anemia (Primary Dx) 2024 Telephone [facility]fusion [facility] [address] [facility] [address] [place] [phone] Kita, Physician 07/27/2024 Telephone [facility]fusion [facility] [address] [facility] [address] [place] [phone] Carola Benitez, DIANNA 07/24/[address] [facility] [address] [facility] Medicine 8th [place] [address] [place] [phone] Mary Pantoja, JERICA 07/20/2024 Orders Only [facility]fusion [facility] [address] [facility] [address] [place] [phone] Day Snell, DIANNA 07/19/[address] 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); Chronic obstructive pulmonary disease with acute exacerbation (HCC); Chronic right-sided CHF (congestive heart failure) (HCC) Discharge Disposition: Discharge to home or self care 07/19/2024 2:31 PM CDT - 07/19/2024 11:59 PM CDT Hospital Encounter [facility] Cardiac Diagnostic Lab [address] [facility] 8th [place] [address] 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 [place]iac [place] [address] Transthoracic Echocardiographic Report Patient Name: ONI KO J : 1945 (78y 11m) Gender: M Study Date: 07/19/2024 02:53:43 PM Ht(Inch): 69 Wt(Lb): 154.98 BSA: 1.85 Honeycomb Decapper: Paula Waters Location: [facility] Order Provider: PERRYHARISH MOODY Heart Rate: 51 [...] Procedure Note Lucio Tran MD - 07/20/[address] [facility] [place]iac [place] [address] Transthoracic Echocardiographic Report Patient Name: ONI KO J : 1945 (78y 11m) Gender: M Study Date: 07/19/2024 02:53:43 PM Ht(Inch): 69 Wt(Lb): 154.98 BSA: 1.85 Honeycomb Decapper: Paula Waters Location: [facility] Order Provider:HARISH CALHOUN Heart Rate: 51 [...] LA Length 2C 4.08 cm MV Decel Gzvj286.23 msec [ 104.00 - 258.00 ] LA [...] [ 1.00 - 2.00 ] PI ED Ttj787.45 m/sec PI Peak PG 24 mmHg PI PHT 420.97 sec Electronically Signed By: Lucio Tran MD 07/20/2024 6:41:36 AM CDT Harish Calhoun MD CV ECHO PROCEDURES Final Result * Pulmonary Function Test - (07/19/2024 1:06 PM CDT) Pathologist [facility] FVC PRE 3.10 L [facility] FVC %PRE PRED 83 % [facility] FEV1 PRE 1.39 L [facility] FEV1 %PRE PRED 50 % [facility] FEV1/FVC PRE 44.7 % [facility] Anatomical Region Laterality Modality PFT 07/19/2024 12:5 7 PM CDT Narrative 07/19/2024 1:28 PM CDT PFT performed at:->[facility] Adult PFT Lab- [facility] Procedure:->Spirometry Pulmonary [...] and %HbO2 is age dependent. However, the [facility] Function Laboratory defines hypoxemia as a PaO2 <56 mm Hg or a %HbO2 <89%. Starting on May of [address] [facility] Pul[facility] Function Laboratory utilizes race [...] Advance Directives For more information, please contact: [phone] * Full Code (Latest Code Status on File) Date Activated Date Inactivated Comments 12/13/2023 3:04 PM 12/13/2023 7:21 PM * Full Code Date Activated Date Inactivated Comments 09/10/2022 11:20 AM 09/10/2022 4:40 PM Care Teams Cook Night Relationship Specialty Start Date End Date Yusuf Quintanilla MD [address] [place] [address] PCP - General 10/03/15
--- OUTSIDE RECORDS SUMMARY | 2024-10-06 13:54 | XMS_ITS | Clinical Summary ---
Author Organization [facility] Address [address] 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 N/A: Chest CR [employer] 06/29/2020 [id number] / / [id number] Insurance [employer] O [facility] Advance Directives For more information, please contact: [phone] Documents on File Type Date Recorded Patient Winch Stripper Expl anation Advance Directive POA 10/21/2015 6:03 AM Advance Directive Living Will 10/21/2015 6:03 AM roderick ko SR * Full Code (Latest Code Status on File) Date Activated Date Inactivated Comments 10/21/2015 12:09 PM 10/22/2015 11:30 AM * Full Code Date Activated Date Inactivated Comments 10/21/2015 5:01 AM 10/21/2015 12:09 PM Care Teams Commercial Tire Service Technician Relationship Specialty Start Date End Date Yusuf Quintanilla MD [address] [place] [address] PCP - General Family Practice 10/08/15
--- OUTSIDE RECORDS SUMMARY | 2024-10-06 13:54 | XMS_ITS | Clinical Summary ---
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
[2024-10-06 13:55] LABS: Device NON-INVASIVE VENT; Non-Invasive Expiratory Pressure 6 CMH2O; Non-Invasive Inspiratory Pressure 12 CMH2O; Non-Invasive Vent Rate 4 /MIN; Site Drawn LEFT BRACHIAL
[2024-10-06 13:57] LABS: Alanine Aminotransferase 139 U/L (6-50); Albumin Level 4.1 g/dL (3.5-5.1); Alkaline Phosphatase 240 U/L (38-126); Anion Gap 12 mmol/L (4-12); Aspartate Amino Transferase 74 U/L (17-59); Bilirubin,Total 0.9 mg/dL (0.2-1.3); Blood Urea Nitrogen 48 mg/dL (9-20); Calcium 9.6 mg/dL (8.4-10.2); Carbon Dioxide 26 mmol/L (22-30); Chloride 97 mmol/L (98-107); Estimated CRCL calculation 38 ml/min; Estimated Glomerular Filt Rate 54; Glucose 142 mg/dL (65-110); Potassium 4.7 mmol/L (3.4-5.0); Sodium 135 mmol/L (137-145); Total Protein 7.3 g/dL (6.3-8.2)
[2024-10-06 14:00] LABS: Partial Thromboplastin Time 29.2 Seconds (22.3-36.8); Prothrombin Time 12.9 Seconds (11.1-14.7)
[2024-10-06 14:05] LABS: Platelet Estimate Adequate (Adequate)
[2024-10-06 14:06] LABS: NT Pro B Type Natriuretic Pept 567 pg/mL (19.9-100); Poikilocytosis 1+; Schistocytes None Seen
[2024-10-06 14:18] LABS: Influenza A QL RT-PCR Negative (Negative); Influenza B QL RT-PCR Negative (Negative); RSV RNA, RT-PCR Negative (Negative); SARS-CoV-2 RNA PCR Negative (Negative)
[2024-10-06] MEDS: methylPREDNISolone SOD SUCC 125 MG VIAL IV PUSH (14:26)
[2024-10-06 14:40] LABS: Add Urine Microscopic? YES; Appearance Urine Clear (Clear); Bacteria Urine None Seen /hpf; Bilirubin Urine Negative (Negative); Blood Urine Negative (Negative); Color Urine Yellow (Yellow); Glucose Urine UA Negative (Negative); Hyaline Casts Urine Present /lpf; Ketones Urine Negative (Negative); Leukocyte Esterase Ur Negative LEU/UL (Negative); Need Manual Microscopic Reviewed; Nitrate Urine Negative (Negative); Protein Urine Trace mg/dL (Negative); RBC Urine 0-2 /hpf (0-2); Specific Grav Ur 1.022 (1.001-1.035); Squamous Epithelial Cell Urine None Seen /hpf (Few); WBC Urine 0-5 /hpf (0-3)
[2024-10-06 15:40] LABS: Reflex Lactic Acid Yes or No Add Lactic
--- NOTE | 2024-10-06 16:00 | PC.NURSE ---
Pt resting in stretcher w/ lights dimmed on machine icer w/ VSS. Pt shaking, this RN states Are you cold? Pt nods. This RN then asked patient Are you wet? Pt shakes his head no. This RN then states Do you mind if I check your bottom? Just to be sure that is not why you are cold? and proceeded to lift the blanket. No obvious wet clothing, pt states No, you dont need to check my butt. I didnt pee myself. I am just cold. This RN repositioned patient and gave additional blanket as requested.
[2024-10-06 16:21] LABS: Lactic Acid 4.1 mmol/L (0.7-2.0)
[2024-10-06] MEDS: LACTATED RINGERS 1,000 ML 999 ML IV CONT (16:36)
[2024-10-06] MEDS: AZITHROMYCIN 500 MG/NS 250 ML 500 MG/250 ML BAG 250 MG IVPB (16:41)
--- NOTE | 2024-10-06 16:48 | ADMGEN ---
This patient, Constantine Ko, was admitted to IMU Room 232-01 @ 1621. Pt on BIPAP 04/06 50%rate 4; resp @ 20-24 spo2 100% pt alert , oriented to hospital policies and general routines including ID bracelet, bed and alarms, visiting hours, pain management, procedures, bathroom and other care routines, personal items, smoking policy, room service/diet, and visiting hours. Information on how to activate the Rapid Response Team has been discussed. Patient are encouraged to report perceived risks to care and to ask questions if they do not understand what they are told or what they should do.
[2024-10-06] MEDS: ALBUTEROL SULFATE NEB 2.5 MG/3 ML INH INHALATION (17:50)
[2024-10-06] MEDS: WATER FOR IRRIGATION, STERILE 1,000 ML BOTTLE 1000 ML (18:09)
[2024-10-06] MEDS: methylPREDNISolone SOD SUCC 125 MG VIAL 60 MG IV PUSH (18:14)
[2024-10-06] MEDS: SODIUM CHLORIDE 0.9% IV 1,000 ML 999 ML IV CONT (18:19)
[2024-10-06] MEDS: SODIUM CHLORIDE 0.9% IV 1,000 ML 125 ML IV CONT (19:20)
--- NOTE | 2024-10-06 21:47 | P.HP_ITS ---
H&P: HPI History of Present Illness Date/Time: 10/06/24 21:47 Chief Complaint: Shortness of breath Narrative: 79-year-old male with past medical history of COPD, anemia, systolic and diastolic CHF hypertension, and hypothyroidism presents the hospital with shortness of breath. Patient states that few days ago he noticed that he started to have a cough and felt congestion. He stated to his that he thought he was having pneumonia. Over the next couple days patient became very short of breath and presented to the hospital for increased work of breathing. Patient denies nausea or vomiting. In the ED patient has leukocytosis 11.0, hemoglobin of 13.1 with baseline being around 9, sodium of 135, BUN of 48, lactic of 5.0 with repeat being 4.1 after 1 L fluid bolus. Creatinine 1.3 with baseline being around 0.7 proBNP being 567, UA negative for infection, influenza A/B, RSV, COVID negative. Chest x-ray showing trace right pleural effusion. Review of Systems Review of Systems: 12 systems were reviewed and are negativ e except for as per HPI. [facility] Past Medical History Medical History (Updated 10/06/24 @ 21:52 by Beatriz Church, SRIRAM) Gastric ulcer Acute on chronic anemia Hematemesis Central sleep apnea Lumbar stenosis with neurogenic claudication Lumbar radiculopathy Neuropathy Chronic respiratory failure with hypoxia, on home oxygen therapy Combined systolic and diastolic cardiac dysfunction Severe pulmonary hypertension Right ventricular systolic dysfunction Obstructive sleep apnea Intolerant to CPAP. Benign essential hypertension Erectile dysfunction Hypogonadism Solitary pulmonary nodule Atherosclerosis of aorta Generalized anxiety disorder Raynaud's syndrome without gangrene Hypertension Hypothyroidism Hyperlipidemia Depression Emphysema lung Coronary artery disease Surgical History Surgical History History of three vessel coronary artery bypass History of cardiac cath Family History Family History Father Hypertension Alcoholism Social History Social History Social History: Surrogate medical decision maker: Constantine Ko Jr., son. Code status: DNR/DNI Smoking packs per day: 1 Smoking cigarettes per day: 20.0 Years smoked: 40 Smoking pack-years: 40.00 Smoking status: Former smoker Tobacco type: cigarettes Smoking end date: 10/20/04 Alcohol intake: former Drinks per week: 1 Substance use: never Substance use type: does not use Do You Feel Safe in your Home?: Yes Lack of Transportation: No Lack of Food: Never True Current Housing: I Have Housing Concerned About Future Housing: No Difficulty Paying Gas/Electric Bills: No Difficulty Paying for Meds: No Currently Unemployed: No Education: Trade/Vocational Certificate Difficulty w/ Childcare or Family Care: No Living arrangements: with family Additional living arrangements comments: Lives with spouse in [place]. Occupation/Education: retired Spiritual care concerns: No Meds Home Medications and Allergies Home Medications ?Medication ?Instructions ?Recorded ?Confirmed ?Type nebulizers #1 ea 07/08/22 10/06/24 Rx ipratropium 0.5 mg-albuterol 3 mg 3 ml inhalation QID PRN shortness 07/13/22 10/06/24 Rx (2.5 mg base)/3 mL nebulization of breath #180 mL soln macitentan 10 mg tablet (Opsumit) 10 mg PO DAILY 01/14/23 10/06/24 History albuterol sulfate 90 mcg/actuation 1 inh inhalation QID PRN shortness 05/30/23 10/06/24 Rx aerosol inhaler of breath or wheezing #8.5 grams furosemide 40 mg tablet 40 mg PO DAILY #90 tabs 12/19/23 10/06/24 Rx azithromycin 500 mg tablet 500 mg PO .three times per week 90 04/23/24 10/06/24 Rx days #36 tabs methocarbamol 750 mg tablet 750 mg PO TID PRN muscle spasm #30 05/25/24 10/06/24 Rx tabs prednisone 20 mg tablet See Rx Instructions .Route 07/05/24 10/06/24 Rx .COMPLEX #30 tabs spironolactone 25 mg tablet 25 mg PO DAILY #90 tabs 07/05/24 10/06/24 Rx atorvastatin 80 mg tablet 80 mg PO DAILY #90 tabs 08/06/24 10/06/24 Rx mirtazapine 15 mg tablet See Rx Instructions .Route 08/06/24 10/06/24 Rx .COMPLEX #90 tabs hydrocodone 10 mg-acetaminophen 1 tablet PO BID PRN pain 08/19/24 10/06/24 History 325 mg tablet losartan 25 mg tablet 25 mg PO DAILY 08/19/24 10/06/24 History metoprolol succinate 25 mg 25 mg PO DAILY 08/19/24 10/06/24 History tablet,extended release 24 hr potassium chloride 20 mEq 20 meq PO DAILY 08/19/24 10/06/24 History tablet,extended release (K-Tab) sildenafil (pulm.hypertension) 20 60 mg PO Q12H 08/19/24 10/06/24 History mg tablet hydrocodone 10 mg-acetaminophen 1 tablet PO BID PRN pain #6 tabs 08/28/24 10/06/24 Rx 325 mg tablet pantoprazole 40 mg tablet,delayed 40 mg PO Q12HR #28 tabs 08/28/24 10/06/24 Rx release budesonide 160 mcg-glycopyr 9 2 inh inhalation .am 10/06/24 10/06/24 History mcg-formot 4.8 mcg/actuation HFA inhaler (Breztri Aerosphere) citalopram 20 mg tablet 20 mg PO DAILY 10/06/24 10/06/24 History polyethylene glycol 3350 17 gram 17 g PO QAM PRN constipation 10/06/24 10/06/24 History oral powder packet (Miralax) Allergies Allergy/AdvReac Type Severity Reaction Status Date / Time crab Allergy Intermediate Hives Verified 10/06/24 18:17 tiotropium (From Spiriva Allergy Mild Dizziness Verified 10/06/24 18:17 with HandiHaler) Vital Signs Vital Signs - 24 hr 10/06/24 13:37 10/06/24 13:42 10/06/24 13:44 Temperature 98.0 F Pulse Rate 82 80 83 Respiratory Rate 35 H 24 H Blood Pressure 139/90 139/90 Pulse Oximetry 88 L 100 Oxygen Delivery Nasal Cannula Oxygen Flow Rate 6 10/06/24 13:45 10/06/24 14:00 10/06/24 14:00 Temperature Pulse Rate 81 81 Respiratory Rate 35 H 32 H Blood Pressure Pulse Oximetry 98 100 Oxygen Delivery BiPAP BiPAP Oxygen Flow Rate 10/06/24 14:00 10/06/24 14:55 10/06/24 14:55 Temperature Pulse Rate 81 93 93 Respiratory Rate 30 H 30 H Blood Pressure Pulse Oximetry 100 100 Oxygen Delivery BiPAP Oxygen Flow Rate 10/06/24 15:03 10/06/24 15:51 10/06/24 16:11 Temperature Pulse Rate 96 90 88 Respiratory Rate 26 H 22 H 22 H Blood Pressure 103/63 104/59 L 104/59 L Pulse Oximetry 98 95 100 Oxygen Delivery Oxygen Flow Rate 10/06/24 16:25 10/06/24 16:45 10/06/24 16:45 Temperature Pulse Rate 87 83 83 Respiratory Rate 28 H 24 H Blood Pressure Pulse Oximetry 98 98 Oxygen Delivery BiPAP BiPAP Oxygen Flow Rate 10/06/24 17:02 10/06/24 17:50 10/06/24 17:51 Temperature 98.4 F Pulse Rate 128 H 82 79 Respiratory Rate 29 H 26 H 26 H Blood Pressure 118/84 Pulse Oximetry 100 100 Oxygen Delivery BiPAP Oxygen Flow Rate 10/06/24 18:00 10/06/24 18:04 10/06/24 20:00 Temperature Pulse Rate 95 85 Respiratory Rate 25 H Blood Pressure Pulse Oximetry 100 Oxygen Delivery Nasal Cannula Oxygen Flow Rate 8 10/06/24 20:00 Temperature 97.9 F Pulse Rate 90 Respiratory Rate 29 H Blood Pressure 108/66 Pulse Oximetry 94 Oxygen Delivery Oxygen Flow Rate Exam Narrative: General: well appearing, appears stated age. HEENT: normocephalic, atraumatic. Mucous membranes moist. EOMI, PERRLA, marisel ateral sclera anicteric, no conjunctival injection. Neck supple without JVD, lymphadenopathy, or bruit. Respiratory: clear to ascultation bilaterally. No rales/rhonic/wheezes. Cardiovascular: Regular rate and rhythm, normal S1-S2 upon ascultation. No murmurs, rubs, or clicks. PMI is nondisplaced, capillary refill less than 3 second. Abdomen: Soft, round, no pulsatile masses, nondistended and nontender. No rebound, no guarding. No CVA tenderness, no hepatosplenomegaly. Bowel sounds present to all four quadrants. No high pitch or tinkling sounds, resonant to percussion. Extremities: No cyanosis, clubbing, or edema present. Pulses are palpable 2/2. Active ROM to all four extremities. Neuro: Alert and orientated x 4. PERRLA. Cranial nerves 2-12 intact without focal deficit. Skin: Warm, dry, and intact, without rash, erythema, or lesion. Psych: pleasant, cooperative, normal speech, normal affect, no hallucinations, no dysarthia BiPAP high-flow H&P: Results Labs Labs: Short CBC 10/06/24 Range/Units 13:33 WBC 11.0 H (4.5-10.0) K/mm3 Hgb 13.1 L D (14.0-18.0) g/dL Hct 44.1 (42.0-52.0) % Plt Count 173 (150-375) k/mm3 BMP 10/06/24 13:33 Sodium 135 L Potassium 4.7 Chloride 97 L Carbon Dioxide 26 BUN 48 H D Creatinine 1.30 Glucose 142 H Calcium 9.6 Liver Function 10/06/24 Range/Units 13:33 Total Bilirubin 0.9 (0.2-1.3) mg/dL AST 74 H (17-59) U/L ALT 139 H (6-50) U/L Alkaline Phosphatase 240 H (38-126) U/L Albumin 4.1 (3.5-5.1) g/dL Urine 10/06/24 Range/Units 14:17 Urine Color Yellow (Yellow) Urine Appearance Clear (Clear) Urine pH 5.0 (5.0-9.0) Ur Specific [place] 1.022 (1.001-1.035) Urine Protein Trace (Negative) mg/dL Urine Glucose (UA) Negative (Negative) mg/dL Assessment and Plan Assessment and plan (1) COPD exacerbation: Code(s): J44.1 - Chronic obstructive pulmonary disease with (acute) exacerbation Status: Acute Assessment and Plan: Azithromycin Rocephin, Solu-Medrol, Hold home prednisone while taking IV Breathing treatments q.6 BiPAP as needed (2) Acute and chronic respiratory failure with hypoxia: Code(s): J96.21 - Acute and chronic respiratory failure with hypoxia Status: Acute Assessment and Plan: Secondary to above Wean BiPAP as able (3) Lactic acidosis: Code(s): E87.20 - Acidosis, unspecified Status: Acute Assessment and Plan: Minimal improvement lactic acid after 1 L fluid bolus, gave 2 L fluid bolus with IVF Repeat lactic acid in a.m. (4) WARD (acute kidney injury): Code(s): N17.9 - Acute kidney failure, unspecified Status: Acute Assessment and Plan: IV hydration Avoid nephrotoxic medications as able Repeat BMP in the morning (5) Combined systolic and diastolic cardiac dysfunction: Code(s): I51.89 - Other ill-defined heart diseases Status: Acute Assessment and Plan: Monitor for fluid overload as patient received 2 L of IV fluid per sepsis protocol in WARD Currently holding home diuretics re-evaluate in the morning (6) Coronary artery disease: Qualifiers: Coronary Disease-Associated Artery/Lesion type: [place] artery [place] vs. transplanted heart: [place] heart Associated angina: without angina Q ualified Code(s): I25.10 - Atherosclerotic heart disease of [place] coronary artery without angina pectoris Code(s): I25.10 - Atherosclerotic heart disease of [place] coronary artery without angina pectoris Status: Chronic Assessment and Plan: Continue metoprolol, losartan, and statin (7) Hypertension: Qualifiers: Hypertension type: primary hypertension Qualified Code(s): I10 - Essential (primary) hypertension Code(s): I10 - Essential (primary) hypertension Status: Chronic Assessment and Plan: Continue pulmonary hypertension medications Quality VTE Prophylaxis VTE prophylaxis: mechanical ordered and pharmacologic ordered Hospitalist MIPS Advance Care Plan I have confirmed that the patient's Advanced Care Plan is present, code status is documented, or surrogate decision maker is listed in patient medical record.: Yes Medication Reconciliation I have utilized all available resources to obtain, update and review the patients current medications (includes all prescriptions, OTC, herbals, cannabis, and nutritional supplements).: Yes
[2024-10-06] MEDS: SILDENAFIL CITRATE 20 MG TABLET 60 MG PO (22:46)
[2024-10-07] VITALS (24 sets, daily range): BP systolic 84–109; BP diastolic 44–58; PULSE 74–98; RESP 18–22; TEMP 36.4–37; O2SAT 88–95
[2024-10-07] MEDS: methylPREDNISolone SOD SUCC 125 MG VIAL 60 MG IV PUSH ×3 (00:44→11:29)
[2024-10-07] MEDS: ALBUTEROL SULFATE NEB 2.5 MG/3 ML INH INHALATION ×3 (02:55→14:09)
[2024-10-07] MEDS: SODIUM CHLORIDE 0.9% IV 1,000 ML 125 ML IV CONT ×2 (03:20→11:28)
[2024-10-07 04:27] LABS: Hematocrit 31.9 % (42.0-52.0); Hemoglobin 9.5 g/dL (14.0-18.0); Mean Corpuscular HGB Conc 29.8 g/dl (32-36); Mean Corpuscular Hemoglobin 28.4 pg (26-34); Mean Corpuscular Volume 95.2 fl (80-100); Mean Platelet Volume 10.4 fl (7.4-10.4); Platelet Count Result 106 k/mm3 (150-375); Red Blood Count 3.35 M/mm3 (4.6-6.20); Red Cell Distribution Width 16.9 % (11.5-14.5); White Blood Count 6.1 K/mm3 (4.5-10.0)
[2024-10-07 04:43] LABS: Lactic Acid Reflex 1.7 mmol/L (0.7-2.0)
[2024-10-07 05:08] LABS: Anion Gap 6 mmol/L (4-12); Blood Urea Nitrogen 33 mg/dL (9-20); Calcium 8.5 mg/dL (8.4-10.2); Carbon Dioxide 24 mmol/L (22-30); Chloride 103 mmol/L (98-107); Estimated CRCL calculation 52 ml/min; Estimated Glomerular Filt Rate > 60; Glucose 139 mg/dL (65-110); Potassium 4.2 mmol/L (3.4-5.0); Sodium 133 mmol/L (137-145)
[2024-10-07 05:18] LABS: Anisocytosis 1+; Band Neutrophils Percent 5 % (0-6); Lymphocytes Absolute Manual 0.06 K/mm3 (1.1-4.5); Metamyelocytes Percent 1 %; Microcytosis 1+ (NORMAL); Monocytes Absolute Manual 0.18 K/mm3 (0.1-0.90); Monocytes Percent Manual 3 % (3-9); Neutrophils Absolute Manual 5.79 K/mm3 (1.3-6.7); Neutrophils Percent Manual 90 % (46-73); Platelet Estimate Decreased (Adequate); Poikilocytosis 1+; Total Cells Counted 100
[2024-10-07 05:19] LABS: Hypochromasia 1+; Ovalocytes 1+; Schistocytes Rare; Smudge Cells PRESENT; Tear Drop Cells 1+
[2024-10-07] MEDS: FLUTICASONE/UMECLIDIN/VILANTER 100-62.5-25 MCG ELLIPTA 1 PUFF INHALATION (08:42)
--- NOTE | 2024-10-07 08:51 | P.PNIM_ITS ---
Progress Note: A&P Assessment and Plan (1) Acute and chronic respiratory failure with hypoxia: Code(s): J96.21 - Acute and chronic respiratory failure with hypoxia Status: Acute Assessment and Plan: * Symptoms: SOB, congestion, cough * SpO2: 92% * Oxygen supplementation: 8L (baseline) * Suspected cause: COPD exacerbation, infection? * ABG: pH 7.389, pCO2 39.8, PO2 165.4, HC03 23.5, O2 saturation in mid 0.1%, O2 content 18.3%, oxyhemoglobin 98.5 % * EKG: NSR, LAD, LBBB * Chest XR: No acute cardiopulmonary findings * Pulmonology consulted * Dimer - If elevated -> CTA chest * Goal O2% -> 90-94% * Currently on 8L NC, can adjust up to 15L if needed * Airvo or Vapotherm if needed if still SOB (2) COPD exacerbation: Code(s): J44.1 - Chronic obstructive pulmonary disease with (acute) exacerbation Status: Acute Assessment and Plan: * Monitor vital signs, I&Os, neuro status and patient is a fall risk * Monitor serum electrolytes, cultures and CBC * Monitor Oxygen saturation, Oxygen via NC; keep SpO2 greater than 88% * Initially placed on Azithromycin 500mg & Rocephin -> Switching to Cefepime and Levaquin on 10/07 * Duonebz q6H * BIPAP held due to comfort * Per Pulm recommendations * Decrease Solumedrol to 20mg IV Q6hr * Add ipratropium nebulizers * Urine for Legionella, Pneumococcal, mycoplamsa IGM * Respiratory panel (3) Lactic acidosis: Code(s): E87.20 - Acidosis, unspecified Status: Acute Assessment and Plan: * In ED: 5.0 * Minimal improvement lactic acid after 1 L fluid bolus, gave 2 L fluid bolus with IVF * Repeat lactic acid in a.m. * 10/07: 1.7 (4) WARD (acute kidney injury): Code(s): N17.9 - Acute kidney failure, unspecified Status: Acute Assessment and Plan: * In ED: Cr 1.3, BUN 48 * IV hydration * Avoid nephrotoxic medications as able * Monitor daily labs * 10/07: Cr 0.96, BUN 33 (5) Combined systolic and diastolic cardiac dysfunction: Code(s): I51.89 - Other ill-defined heart diseases Status: Acute Assessment and Plan: * Monitor for fluid overload as patient received 2 L of IV fluid per sepsis protocol in WARD * Currently holding home diuretics re-evaluate in the morning * Repeat Echo on 10/08/2024 (6) Coronary artery disease: Qualifiers: Associated angina: without angina Coronary Disease-Associated Artery/Lesion type: [place] artery [place] vs. transplanted heart: [place] heart Qualified Code(s): I25.10 - Atherosclerotic heart disease of [place] coronary artery without angina pectoris Code(s): I25.10 - Atherosclerotic heart disease of [place] coronary artery without angina pectoris Status: Chronic Assessment and Plan: * Continue metoprolol, losartan, and statin (7) Hypertension: Qualifiers: Hypertension type: primary hypertension Qualified Code(s): I10 - Essential (primary) hypertension Code(s): I10 - Essential (primary) hypertension Status: Chronic Assessment and Plan: * Continue pulmonary hypertension medications Subjective Date/time seen: 10/07/24 08:51 Interval history: 79-year-old male with past medical history of COPD, anemia, systolic and diastolic CHF hypertension, and hypothyroidism presents the hospital with shortness of breath. Patient states that few days ago he noticed that he started to have a cough and felt congestion. 10/07/2024 Patient sitting in bed at time of examination. Currently on 8L NC, baseline is 6 -10L NC at home. Denies any chest pain, n/v, abdominal pain at this time. Pulmonology consult for acute and chronic respiratory failure with hypoxia and, recommended D-dimer and subsequent CT Angio of the chest if positive, as well as transfer to [facility] given underlying comorbidities and previous care at their pulmonary hypertension Center. [facility] was called and patient was accepted, will initiate transfer process at this time. Review of Systems Review of Systems: 12 systems were reviewed and are negativ e except for as per HPI. Exam Narrative: General: Ill appearing, appears stated age. HEENT: normocephalic, atraumatic. Mucous membranes moist. EOMI, PERRLA, bilateral sclera anicteric, no conjunctival injection. Neck supple without JVD, lymphadenopathy, or bruit. Respiratory: Crackles, no rales, rhonchi, wheezing or diminished lung sounds. Mild congestion. Cardiovascular: Regular rate and rhythm, normal S1-S2 upon ascultation. No murmurs, rubs, or clicks. PMI is nondisplaced, capillary refill less than 3 second. Abdomen: Soft, round, no pulsatile masses, nondistended and nontender. No rebound, no guarding. No CVA tenderness, no hepatosplenomegaly. Bowel sounds present to all four quadrants. No high pitch or tinkling sounds, resonant to percussion. Extremities: No cyanosis, clubbing, or edema present. Pulses are palpable 2/2. Active ROM to all four extremities. Neuro: Alert and orientated x 4. PERRLA. Cranial nerves 2-12 intact without focal deficit. Skin: Warm, dry, and intact, without rash, erythema, or lesion. Psych: pleasant, cooperative, normal speech, normal affect, no hallucinations, no dysarthia BiPAP high-flow Objective Data Vital Signs Vital Signs: Vital Signs - 24 hr 10/06/24 13:37 10/06/24 13:42 10/06/24 13:44 Temperature 98.0 F Pulse Rate 82 80 83 Respiratory Rate 35 H 24 H Blood Pressure 139/90 139/90 Pulse Oximetry 88 L 100 Oxygen Delivery Nasal Cannula Oxygen Flow Rate 6 10/06/24 13:45 10/06/24 14:00 10/06/24 14:00 Temperature Pulse Rate 81 81 Respiratory Rate 35 H 32 H Blood Pressure Pulse Oximetry 98 100 Oxygen Delivery BiPAP BiPAP Oxygen Flow Rate 10/06/24 14:00 10/06/24 14:55 10/06/24 14:55 Temperature Pulse Rate 81 93 93 Respiratory Rate 30 H 30 H Blood Pressure Pulse Oximetry 100 100 Oxygen Delivery BiPAP Oxygen Flow Rate 10/06/24 15:03 10/06/24 15:51 10/06/24 16:11 Temperature Pulse Rate 96 90 88 Respiratory Rate 26 H 22 H 22 H Blood Pressure 103/63 104/59 L 104/59 L Pulse Oximetry 98 95 100 Oxygen Delivery Oxygen Flow Rate 10/06/24 16:25 10/06/24 16:45 10/06/24 16:45 Temperature Pulse Rate 87 83 83 Respiratory Rate 28 H 24 H Blood Pressure Pulse Oximetry 98 98 Oxygen Delivery BiPAP BiPAP Oxygen Flow Rate 10/06/24 17:02 10/06/24 17:50 10/06/24 17:51 Temperature 98.4 F Pulse Rate 128 H 82 79 Respiratory Rate 29 H 26 H 26 H Blood Pressure 118/84 Pulse Oximetry 100 100 Oxygen Delivery BiPAP Oxygen Flow Rate 10/06/24 18:00 10/06/24 18:04 10/06/24 20:00 Temperature Pulse Rate 95 85 Respiratory Rate 25 H Blood Pressure Pulse Oximetry 100 Oxygen Delivery Nasal Cannula Oxygen Flow Rate 8 10/06/24 20:00 10/06/24 20:00 10/06/24 22:00 Temperature 97.9 F Pulse Rate 90 89 79 Respiratory Rate 29 H Blood Pressure 108/66 Pulse Oximetry 94 Oxygen Delivery Oxygen Flow Rate 10/07/24 00:00 10/07/24 00:00 10/07/24 00:00 Temperature 98.3 F Pulse Rate 77 85 Respiratory Rate 19 Blood Pressure 95/56 L Pulse Oximetry 92 Oxygen Delivery BiPAP Oxygen Flow Rate 10/07/24 02:00 10/07/24 03:01 10/07/24 04:00 Temperature 97.8 F Pulse Rate 75 87 91 Respiratory Rate 18 19 Blood Pressure 100/58 L Pulse Oximetry 93 Oxygen Delivery Oxygen Flow Rate 10/07/24 04:00 10/07/24 04:00 10/07/24 06:00 Temperature Pulse Rate 91 82 Respiratory Rate Blood Pressure Pulse Oximetry 93 Oxygen Delivery Nasal Cannula Oxygen Flow Rate 8 10/07/24 07:50 10/07/24 08:43 Temperature 98.6 F Pulse Rate 81 88 Respiratory Rate 20 18 Blood Pressure 108/54 L Pulse Oximetry 89 L Oxygen Delivery Oxygen Flow Rate Intake/Output Intake/Output: Intake & Output 10/04/24 10/05/24 10/06/24 10/07/24 23:59 23:59 23:59 23:59 Intake Total 2540 1150 Output Total 25 350 Balance 2515 800 Meds/Results Medications: Active Medications Generic Name Dose Route Start Last Admin Trade Name Freq PRN Reason Stop Dose Admin Acetaminophen 650 mg 10/06/24 21:56 Acetaminophen 325 Mg Tablet PO Q4H PRN Mild Pain (1-3) or Fever Hydrocodone Bitart/Acetaminophen 1 tab 10/06/24 21:59 Hydrocodone/Acetaminophen (*Crx) 10-325 Mg Tablet PO BID PRN pain 4-10 Albuterol 2.5 mg 10/06/24 20:00 10/07/24 08:39 Albuterol Sulfate Neb 2.5 Mg/3 Ml Inh INHALATION 2.5 mg Q6HRT SALAZAR Administration Atorvastatin Calcium 80 mg 10/07/24 09:00 Atorvastatin 40 Mg Tablet PO DAILY SALAZAR Fluticasone/Umeclidinium/Vilanterol 1 puff 10/07/24 08:00 10/07/24 08:42 Fluticasone/Umeclidin/Vilanter 100-62.5-25 Mcg Ellipta INHALATION 1 puff DAILYRT SALAZAR Administration Heparin Sodium (Porcine) 5,000 units 10/07/24 09:00 Heparin Sodium 5,000 Units/Ml Vial SUB-Q Q12HR SALAZAR Ceftriaxone Sodium 1 gm in 50 mls @ 100 mls/hr 10/07/24 16:00 Rocephin 1 Gm/Ns 50 Ml IVPB Q24H SALAZAR Azithromycin 500 mg in 250 mls @ 250 mls/hr 10/07/24 17:00 Zithromax IVPB Q24H SALAZAR Sodium Chloride 1,000 mls @ 125 mls/hr 10/06/24 17:55 10/07/24 03:20 Normal Saline Iv IV CONT 125 mls/hr .Q8H SALAZAR Administration Losartan Potassium 25 mg 10/07/24 09:00 Losartan Potassium 25 Mg Tablet PO DAILY SALAZAR Methylprednisolone Sodium Succinate 60 mg 10/06/24 18:00 10/07/24 06:25 Methylprednisolone Sod Succ 125 Mg Vial IV PUSH 60 mg Q6HR SALAZAR Administration Metoprolol Succinate 25 mg 10/07/24 09:00 Metoprolol Succinate Ext Rel 25 Mg Tabcr PO DAILY SALAZAR Polyethylene Glycol 17 gm 10/07/24 09:00 Polyethylene Glycol 3350 17 Gm Powd.Pack PO QAM PRN constipation Sildenafil Citrate 60 mg 10/06/24 22:20 10/06/24 22:46 Sildenafil Citrate 20 Mg Tablet PO 60 mg Q12HR SALAZAR Administration Radiology Results: ITS Impressions Chest X-Ray 10/06/24 14:37 IMPRESSION: No new acute cardiopulmonary process. Improving right medial basilar airspace disease and trace right effusion. Labs Labs: Laboratory Results - last 24 hr 10/06/24 10/06/24 10/06/24 13:33 13:34 13:52 WBC 11.0 H RBC 4.65 Hgb 13.1 L D Hct 44.1 MCV 94.8 MCH 28.2 MCHC 29.7 L RDW 17.2 H Plt Count 173 MPV 10.1 Immature Gran % (Auto) 2.1 H Neut % (Auto) 92.8 H Lymph % (Auto) 2.3 L [place] % (Auto) 2.4 L Eos % (Auto) 0.1 Baso % (Auto) 0.3 Lymph # (Auto) 0.25 L [place] # (Auto) 0.3 Eos # (Auto) 0.0 Baso # (Auto) 0.0 Abs Immat Gran (auto) 0.23 H Absolute Neuts (auto) 10.3 H Absolute Nucleated RBC 0.000 Total Counted Neutrophils % (Manual) Band Neutrophils % Not Reportable Lymphocytes % (Manual) Monocytes % (Manual) Metamyelocytes % Nucleated RBC % 0.0 Abs Neuts (Manual) Abs Lymphs (Manual) Abs Monocytes (Manual) Smudge Cells Platelet Estimate Adequate Hypochromasia Poikilocytosis 1+ Anisocytosis Microcytosis Tear Drop Cells Ovalocytes Schistocytes None seen PT 12.9 INR 1.0 APTT 29.2 Puncture Site Left brachial ABG pH 7.389 ABG pCO2 39.8 ABG pO2 165.4 H ABG PO2/FiO2 Ratio 2.21 ABG HCO3 23.5 ABG O2 Saturation 99.1 ABG O2 Content 18.3 ABG Base Excess -1.3 A-a Gradient 327.1 Oxyhemoglobin 98.5 Carboxyhemoglobin 0.6 Methemoglobin 0.2 Reduced Hemoglobin 0.7 Total Hemoglobin 13.0 O2 Delivery Device Non-invasive vent O2 Liters/Min Not Reportable Vent Rate 4 FiO2 75 Expiratory Pressure 6 Inspiratory Pressure 12 Sodium 135 L Potassium 4.7 Chloride 97 L Carbon Dioxide 26 Anion Gap 12 BUN 48 H D Creatinine 1.30 Estim Creat Clear Calc 38 Estimated GFR 54 L Glucose 142 H Lactic Acid 5.0 H* Calcium 9.6 Total Bilirubin 0.9 AST 74 H ALT 139 H Alkaline Phosphatase 240 H NT-Pro-B Natriuret Pep 567 H Total Protein 7.3 Albumin 4.1 Urine Color Urine Appearance Urine pH Ur Specific [place] Urine Protein Urine Glucose (UA) Urine Ketones Ur Blood (Man) Urine Nitrate Urine Bilirubin Urine Urobilinogen Add Ur Microanalysis Leukocyte Esterase Rfl Urine RBC Urine WBC Ur Squamous Epith Cells Urine Bacteria Urine Casts Hyaline Casts Influenza A (RT-PCR) Negative Influenza B (RT-PCR) Negative RSV (RT-PCR) Negative SARS-CoV-2 RNA (RT-PCR) Negative 0610/06/24 10/07/24 14:17 16:05 03:59 WBC 6.1 RBC 3.35 L Hgb 9.5 L D Hct 31.9 L MCV 95.2 MCH 28.4 MCHC 29.8 L RDW 16.9 H Plt Count 106 L MPV 10.4 Immature Gran % (Auto) Not Reportable Neut % (Auto) Not Reportable Lymph % (Auto) Not Reportable [place] % (Auto) Not Reportable Eos % (Auto) Not Reportable Baso % (Auto) Not Reportable Lymph # (Auto) Not Reportable [place] # (Auto) Not Reportable Eos # (Auto) Not Reportable Baso # (Auto) Not Reportable Abs Immat Gran (auto) Not Reportable Absolute Neuts (auto) Not Reportable Absolute Nucleated RBC Not Reportable Total Counted 100 Neutrophils % (Manual) 90 H Band Neutrophils % 5 Lymphocytes % (Manual) 1.0 L Monocytes % (Manual) 3 Metamyelocytes % 1 Nucleated RBC % Not Reportable Abs Neuts (Manual) 5.79 Abs Lymphs (Manual) 0.06 L Abs Monocytes (Manual) 0.18 Smudge Cells Present Platelet Estimate Decreased Hypochromasia 1+ Poikilocytosis 1+ Anisocytosis 1+ Microcytosis 1+ Tear Drop Cells 1+ Ovalocytes 1+ Schistocytes Rare PT INR APTT Puncture Site ABG pH ABG pCO2 ABG pO2 ABG PO2/FiO2 Ratio ABG HCO3 ABG O2 Saturation ABG O2 Content ABG Base Excess A-a Gradient Oxyhemoglobin Carboxyhemoglobin Methemoglobin Reduced Hemoglobin Total Hemoglobin O2 Delivery Device O2 Liters/Min Vent Rate FiO2 Expiratory Pressure Inspiratory Pressure Sodium 133 L Potassium 4.2 Chloride 103 Carbon Dioxide 24 Anion Gap 6 BUN 33 H D Creatinine 0.96 Estim Creat Clear Calc 52 Estimated GFR > 60 Glucose 139 H Lactic Acid 4.1 H* 1.7 Calcium 8.5 Total Bilirubin AST ALT Alkaline Phosphatase NT-Pro-B Natriuret Pep Total Protein Albumin Urine Color Yellow Urine Appearance Clear Urine pH 5.0 Ur Specific [place] 1.022 Urine Protein Trace Urine Glucose (UA) Negative Urine Ketones Negative Ur Blood (Man) Negative Urine Nitrate Negative Urine Bilirubin Negative Urine Urobilinogen 1.0 Add Ur Microanalysis Reviewed Leukocyte Esterase Rfl Negative Urine RBC 0-2 Urine WBC 0-5 Ur Squamous Epith Cells None seen Urine Bacteria None seen Urine Casts 6-10 Hyaline Casts Present Influenza A (RT-PCR) Influenza B (RT-PCR) RSV (RT-PCR) SARS-CoV-2 RNA (RT-PCR) Quality VTE Prophylaxis VTE prophylaxis: mechanical ordered and pharmacologic ordered
[2024-10-07] MEDS: LOSARTAN POTASSIUM 25 MG TABLET PO (08:54)
[2024-10-07] MEDS: METOPROLOL SUCCINATE EXT REL 25 MG TABCR PO (08:54)
[2024-10-07] MEDS: ATORVASTATIN 40 MG TABLET 80 MG PO (08:54)
[2024-10-07] MEDS: HEPARIN SODIUM 5,000 UNITS/ML VIAL 5000 UNITS SUB-Q ×2 (08:54→20:15)
[2024-10-07] MEDS: SILDENAFIL CITRATE 20 MG TABLET 60 MG PO ×2 (09:05→20:08)
[2024-10-07] MEDS: polyethylene glycoL 3350 17 GM POWD.PACK PO (09:14)
--- NOTE | 2024-10-07 11:17 | PCPTNOTE ---
attempted PT eval, pt just got set up in the chair with OT and is short of breath, pt requested PT to come back at a later time so he can rest, will follow
--- NOTE | 2024-10-07 12:00 | P.CONPL_ITS ---
Assessment and Plan Assessment and plan (1) Acute and chronic respiratory failure with hypoxia: Code(s): J96.21 - Acute and chronic respiratory failure with hypoxia Status: Acute Assessment and Plan: Patient with chronic hypoxemic respiratory failure Requiring 6 L nasal cannula oxygen. Etiology related to his pulmonary hypertension, COPD, heart failure with reduced ejection fraction at 38% per cardiology note, untreated obstructive sleep apnea, possible COPD exacerbation, infection and or fluid overload. On presentation patient initially required BiPAP 50%. Of note the patient told me he will not wear BiPAP anymore. Plan: I will order D-dimer and if this is positive will order CT angiogram of the chest. Goal saturation 90- 94%. currently is on 8 L nasal cannula. Adjust oxygen up to 15 L nasal cannula if needed and if he still remains hypoxemic will treat with Airvo or Vapotherm. I have discontinued BiPAP as he says this mask makes him claustrophobic and he will not wear it any more. Discussed with Dr. Long and in the room, will follow with you. (2) Severe pulmonary hypertension: Code(s): I27.20 - Pulmonary hypertension, unspecified Status: Chronic Assessment and Plan: Regarding his pulmonary hypertension, patient followed at [facility] and last seen on 03/21/2024. 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 He has remained on the same vasodilators, no intercurrent COPD exacerbations or infection. Shortness of breath comes and goes with good days and bad days. Variability is tied to how much pain he is having in his back. Was scheduled for spine surgery in December but got postponed to feeling better in surgeon recommended PT. Completed PT but had no improvement. Plan for injections. No swelling or weight gain. Weight mid 160s. Medicines include macitentan 10 mg a day. Sildenafil 40 mg 3 times a day Lasix 20 mg a day, prednisone 10 mg a day were tabs a Pean, breasts tree, aspirin 81, albuterol p.r.n.. Plan: Continue sildenafil, macitentan 10 mg Q day and low-dose intensity diuretics. Continue breztri. Return in 3 months with echo, spirometry and WFD if able. tells me that they some a a nurse practitioner in the Pulmonary Clinic in about June of 2024 and at that time he had worsening shortness of breath and could only walk room to room since time. They ordered an echocardiogram and continued his medications. patient followed by [facility] Cardiology, Dr. Castelan and last seen on 08/08/2024. Note states that recent echocardiogram at [facility] showed decreased LV function at 38%. Beta-angeles Metoprolol succinate 25 q.day and losartan 25 mg p.o. q.day added. patient was scheduled to follow up with [facility] on 10/16/2024. Patient is scheduled to follow up with [facility] Cardiology on 10/30/2024 10/07/2024: Patient states since he has much worse dyspnea on exertion and is limited at walking room to room and now this is even worsened he has rest shortness of breath. Plan: Recommend patient be transferred to [facility] for pulmonary hypertension specialist consultation. I spoke to the patient and he is in agreement with this plan. Dr. Long will call [facility] to initiate transfer. In the meantime I will continue his sildenafil 60 mg p.o. b.i.d., macitentan 10 mg p.o. q.day. Patient is on Lasix 40 mg p.o. q.day at home and presents with a BNP that is mildly elevated at 567. Initially had a lactic acid of 5.0 was given IV fluids. on 10/08/2024, will reassess for Lasix for gentle diuresis. Will maintain adequate oxygenation. Echocardiogram on 10/08/2024. (3) COPD (chronic obstructive pulmonary disease): Code(s): J44.9 - Chronic obstructive pulmonary disease, unspecified Status: Acute Assessment and Plan: GOLD grade 2 group B COPD (66 PY, quit 2006, alpha 1 phenotype MM on 04/01/2022, 11/04/2020 FEV1 1.81, 55%, no bronchodilaor response, normal lung volumes and DLCO moderately decreased when adjusted for alveolar volume), most recent CT scan in our system 07/08/2022 with moderate to severe apical predominant centrilobular emphysema. chronic hypoxemic respiratory failure requiring 6 L nasal cannula 24-7. Patient presents with worsening cough, worsening shortness of breath, wheezes with increased phlegm production. I will treat him for COPD exacerbation. 10/07/2024: Patient says he feels a little better today cough, his cough is 80% back to his baseline, his rest shortness of breath is normal. He denies fever. He is on 7 L nasal cannula saturations 91%. Plan: I will decrease his Solu-Medrol to 20 mg IV q.6 hours. I will add ipratropium nebulizers and placed him on DuoNebs q.4 hours. Since the patient is on steroids, beta agonist and muscarinic antagonists will discontinue his inhaled trelegy. patient was on azithromycin 500 3 times a week and will hold this while he is in the hospital. Antibiotics will include cefepime and Levaquin since he was recently admitted to [facility] and then to [facility]. will check MRSA RT PCR assay and if positive will add vancomycin. Will send urine for Legionella, urine for pneumococcal, mycoplasma IgM and respiratory pathogen panel. Goal saturation 90-94%, adjust oxygen accordingly. (4) Obstructive sleep apnea: Code(s): G47.33 - Obstructive sleep apnea (adult) (pediatric) Status: Chronic Assessment and Plan: 10/21/2021: The patient had an overall AHI of 17.6 and a central apnea index of 11.3. The patient had a supine AHI of 55.2. The patient had an overall AHI of 17.6 and a central apnea index of 11.3. The patient was started on CPAP 5 cm H2O and titrated to BPAP 14/10 cm H2O.?I recommend that the patient be prescribed CPAP 11 cm H2O with an EPR of 3, a medium Resmed AirTouch F20 full face mask, CPAP filters/tubing and humidifier chamber.? Patient was seen by the pulmonary sleep specialist Dr. Rosa in the outpatient clinic and after long discussion on 03/29/2022 it was deemed that the patient could not tolerate CPAP and was discontinued. I again talked to the patient today and he simply cannot tolerate CPAP. Will attempt to maintain adequate oxygenation at night. History of Present Illness History of Present Illness Consult date: 10/07/24 Chief complaint: Respiratory distress, COPD Narrative: 10/07/2024: This is a new pulmonary consult for COPD and pulmonary hypertension 79-year-old man with a history of GOLD grade 2 group B COPD (66 PY, quit 2006, alpha 1 phenotype MM on 04/01/2022, 11/04/2020 FEV1 1.81, 55%, no bronchodilaor response, normal lung volumes and DLCO moderately decreased when adjusted for alveolar volume), most recent CT scan in our system 07/08/2022 with moderate to severe apical predominant centrilobular emphysema,?primary central sleep apnea with some obstruction and Richard-Mccurdy breathing intolerant to CPAP, pulmonary hypertension related to limited systemic sclerosis with positive anticentromere antibody followed at [facility], hypoxemic respiratory failure requiring 7 L 27-7. COVID pneumonia 04/2020, coronary artery disease status post CABG 2015. patient recently admitted to [facility] with a GI bleed secondary to gastric ulcer and discharged on 08/28/2024 on Protonix 40 p.o. b.i.d., aspirin was discontinued, azithromycin 3 times a week, Regarding his pulmonary hypertension, patient followed at [facility] and last seen on 03/21/2024. 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 he has remained on the same vasodilators, no intercurrent COPD exacerbations or infection. Shortness of breath comes and goes with good days and bad days. Variability is tied to how much pain he is having in his back. Was scheduled for spine surgery in December but got postponed to feeling better in surgeon recommended PT. Completed PT but had no improvement. Plan for injections. No swelling or weight gain. Weight mid 160s. Medicines include macitentan 10 mg a day. Sildenafil 40 mg 3 times a day Lasix 20 mg a day, prednisone 10 mg a day were tabs a Pean, breasts tree, aspirin 81, albuterol p.r.n.. Plan: Continue sildenafil, macitentan 10 mg Q day and low-dose intensity diuretics. Continue breztri. Return in 3 months with echo, spirometry and WF D if able. tells me that they some a a nurse practitioner in the Pulmonary Clinic in about June of 2024 and at that time he had worsening shortness of breath and could only walk room to room since Thanksgiving time. They ordered an echocardiogram and continued his medications. patient followed by [facility] Cardiology, Dr. Castelan and last seen on 08/08/2024. Note states that recent echocardiogram at [facility] showed decreased LV function at 38%. Beta-angeles Metoprolol succinate 25 q.day and losartan 25 mg p.o. q.day added. patient tells me that he started these medicines but noticed no difference in his dyspnea on exertion walking room to room. He remained on 6 L nasal cannula 24-7. 08/09/2023: [place] [facility] note: Total exercise time 40 minutes. 6 L nasal cannula saturations 98%. MTS 1.78. Patient was admitted to [facility] for a GI bleed from a gastric ulcer and discharged to [facility] on 08/28/2024. He was discharged home on 09/30/2024. On 10/01/2024 the patient had a good day and was walking at his baseline room to room with 6 L using walker. On 10/02/2024 the patient developed a cough, no phlegm production initially. No hemoptysis. No worsening in his dyspnea on exertion or shortness of breath. No worsening in his oxygenation. Symptoms persisted on 10/04 he developed dyspnea on exertion and diarrhea his saturations were still in the 90% on 6 L. On 10/05/2024 symptoms continued to worsen and his saturations decreased to 88% on 6 L. he now had increased phlegm production that was described as milky and white. On 10/06/2024 patient presented to the emergency room with a blood pressure of 139/90, heart rate of 82, respirations 35 and saturations on 6 L at 88%. His white blood cell count was 11.0, his creatinine was 1.30 his BNP was 567, his lactic acid with 5.0 his COVID, influenza, RSV RT PCR assay were negative. Patient had an ABG on 5 L nasal cannula with a pH 7.46/33/53 and he was placed on BiPAP rate of 4 pressures 12/6 and 75% FiO2 with a repeat blood gas of 7.39/40/165. Patient was treated with bronchodilators, Solu-Medrol, ceftriaxone, azithromycin, lactated Ringer's, and BiPAP. 10/07/2024: Patient says he feels a little better today cough, his cough is 80% back to his baseline, his rest shortness of breath is normal. He denies fever. He is on 7 L nasal cannula saturations 91%. DATA: 07/09/2022: cho Summary 1. Complete two-dimensional, color flow and Doppler transthoracic echocardiogram is performed. 2. Left ventricular chamber dimension is normal. 3. Left ventricular systolic function is moderately reduced, estimated at 40-45%. 4. There is mildly increased left ventricular wall thickness. 5. The left ventricular diastolic function is grade I diastolic dysfunction. 6. Right ventricular chamber dimension is severely enlarged. 7. Right ventricular systolic function is reduced. 8. Flattening of the septum in diastole and systole consistent with right ventricular volume and pressure overload. 9. Left atrial chamber dimension is moderately enlarged. 10. Right atrial chamber dimension is severely enlarged. 11. There is moderate tricuspid valve regurgitation. 12. Dilated inferior vena cava with <50% collapse upon inspiration consistent with elevated right atrial pressure, 15 mmHg. 13. Severe pulmonary hypertension with estimated PASP 89mmHg. Right Ventricle Flattening of the septum in diastole and systole consistent with right ventricular volume and pressure overload. Right ventricular chamber dimension is severely enlarged. Right ventricular systolic function is reduced. Left Atria Left atrial chamber dimension is moderately enlarged. Right Atria Right atrial chamber dimension is severely enlarged. Atrial Septum Intact interatrial septum visualized by color flow imaging. 11/04/2020: PFTs This is a pulmonary function test with pre and post-bronchodilator spirometry, plethysmography and diffusing capacity. The test was performed and results interpreted in accordance with the 2019 and 2005 ATS/ERS Task Force guidelines respectively using the Global Lung Function Initiative-2012 reference equations. Patient demonstrated good effort and cooperation. Reproducibility criteria were met. The quality of the pre bronchodilator spirometry maneuver was Grade A and post bronchodilator spirometry maneuver was Grade A. Findings: Spirometry: there is decreased maximal expiratory airflow at all lung volumes with concave expiratory flow tracing. The pre bronchodilator FVC is 3.85 L, 87% predicted. The pre bronchodilator FEV1 is 1.81 L, 55% predicted. The FEV1: FVC ratio is 47%. The post bronchodilator FVC is 4.27 L, representing an 11% increase. The post bronchodilator FEV1 is 2.11 L, representing a 16% increase. Plethysmography: The total lung capacity is 6.93 L, 93% predicted. The functional residual capacity is 4.72 L, 118% predicted. The residual volume is 3.08 L, 117% predicted. Diffusing capacity: The absolute diffusion capacity is 8.7, 33% predicted. The diffusing capacity corrected for alveolar volume is 1.60, 43% predicted. Impression: There is a moderately severe obstructive abnormality with significant improvement after inhaling a single dose of albuterol. The lung volumes are normal. The absolute diffusion capacity is severely decreased and remains moderately decreased when corrected for alveolar volume. Review of Systems 2 Constitutional: Constitutional: Reports no additional constitutional complaints Eyes: Eyes: Reports no additional eye complaints ENT: Reports system reviewed and no additional complaints, except as documented Cardiovascular: Cardiovascular: Reports no additional cardiovascular complaints Respiratory: Respiratory: Reports no additional respiratory complaints Gastrointestinal: Gastrointestinal: Reports no additional gastrointestinal complaints Musculoskeletal: Musculoskeletal: Reports no additional musculoskeletal complaints Neurologic: Reports system reviewed and no additional complaints, except as documented Psychiatric: Psychiatric: Reports no additional psychiatric complaints Endocrine: Endocrine: Reports no additional endocrine complaints Hematologic/Lymphatic: Hematologic/Lymphatic: Reports no additional hematologic/lymphatic complaints Allergic/Immunologic: Allergic/Immunologic: Reports no additional allergic/immunologic complaints [facility] Past Medical History Medical History (Updated 10/06/24 @ 21:52 by Beatriz Church, SRIRAM) Gastric ulcer Acute on chronic anemia Hematemesis Central sleep apnea Lumbar stenosis with neurogenic claudication Lumbar radiculopathy Neuropathy Chronic respiratory failure with hypoxia, on home oxygen therapy Combined systolic and diastolic cardiac dysfunction Severe pulmonary hypertension Right ventricular systolic dysfunction Obstructive sleep apnea Intolerant to CPAP. Benign essential hypertension Erectile dysfunction Hypogonadism Solitary pulmonary nodule Atherosclerosis of aorta Generalized anxiety disorder Raynaud's syndrome without gangrene Hypertension Hypothyroidism Hyperlipidemia Depression Emphysema lung Coronary artery disease Surgical History Surgical History History of three vessel coronary artery bypass History of cardiac cath Family History Family History Father Hypertension Alcoholism Social History Social History Social History: Surrogate medical decision maker: Constantine Ko Jr., son. Code status: DNR/DNI Smoking packs per day: 1 Smoking cigarettes per day: 20.0 Years smoked: 40 Smoking pack-years: 40.00 Smoking status: Former smoker Tobacco type: cigarettes Smoking end date: 10/20/04 Alcohol intake: former Drinks per week: 1 Substance use: never Substance use type: does not use Do You Feel Safe in your Home?: Yes Lack of Transportation: No Lack of Food: Never True Current Housing: I Have Housing Concerned About Future Housing: No Difficulty Paying Gas/Electric Bills: No Difficulty Paying for Meds: No Currently Unemployed: No Education: Trade/Vocational Certificate Difficulty w/ Childcare or Family Care: No Living arrangements: with family Additional living arrangements comments: Lives with spouse in [place]. Occupation/Education: retired Spiritual care concerns: No Meds Home Medications and Allergies Home Medications ?Medication ?Instructions ?Recorded ?Confirmed ?Type nebulizers #1 ea 07/08/22 10/06/24 Rx ipratropium 0.5 mg-albuterol 3 mg 3 ml inhalation QID PRN shortness 07/13/22 10/06/24 Rx (2.5 mg base)/3 mL nebulization of breath #180 mL soln macitentan 10 mg tablet (Opsumit) 10 mg PO DAILY 01/14/23 10/06/24 History albuterol sulfate 90 mcg/actuation 1 inh inhalation QID PRN shortness 05/30/23 10/06/24 Rx aerosol inhaler of breath or wheezing #8.5 grams furosemide 40 mg tablet 40 mg PO DAILY #90 tabs 12/19/23 10/06/24 Rx azithromycin 500 mg tablet 500 mg PO .three times per week 90 04/23/24 10/06/24 Rx days #36 tabs methocarbamol 750 mg tablet 750 mg PO TID PRN muscle spasm #30 05/25/24 10/06/24 Rx tabs prednisone 20 mg tablet See Rx Instructions .Route 07/05/24 10/06/24 Rx .COMPLEX #30 tabs spironolactone 25 mg tablet 25 mg PO DAILY #90 tabs 07/05/24 10/06/24 Rx atorvastatin 80 mg tablet 80 mg PO DAILY #90 tabs 08/06/24 10/06/24 Rx mirtazapine 15 mg tablet See Rx Instructions .Route 08/06/24 10/06/24 Rx .COMPLEX #90 tabs hydrocodone 10 mg-acetaminophen 1 tablet PO BID PRN pain 08/19/24 10/06/24 History 325 mg tablet losartan 25 mg tablet 25 mg PO DAILY 08/19/24 10/06/24 History metoprolol succinate 25 mg 25 mg PO DAILY 08/19/24 10/06/24 History tablet,extended release 24 hr potassium chloride 20 mEq 20 meq PO DAILY 08/19/24 10/06/24 History tablet,extended release (K-Tab) sildenafil (pulm.hypertension) 20 60 mg PO Q12H 08/19/24 10/06/24 History mg tablet hydrocodone 10 mg-acetaminophen 1 tablet PO BID PRN pain #6 tabs 08/28/24 10/06/24 Rx 325 mg tablet pantoprazole 40 mg tablet,delayed 40 mg PO Q12HR #28 tabs 08/28/24 10/06/24 Rx release budesonide 160 mcg-glycopyr 9 2 inh inhalation .am 10/06/24 10/06/24 History mcg-formot 4.8 mcg/actuation HFA inhaler (Breztri Aerosphere) citalopram 20 mg tablet 20 mg PO DAILY 10/06/24 10/06/24 History polyethylene glycol 3350 17 gram 17 g PO QAM PRN constipation 10/06/24 10/06/24 History oral powder packet (Miralax) Allergies Allergy/AdvReac Type Severity Reaction Status Date / Time crab Allergy Intermediate Hives Verified 10/06/24 18:17 tiotropium (From Spiriva Allergy Mild Dizziness Verified 10/06/24 18:17 with HandiHaler) Vital Signs Vital Signs - 24 hr 10/06/24 13:37 10/06/24 13:42 10/06/24 13:44 Temperature 36.7 C Pulse Rate 82 80 83 Respiratory Rate 35 H 24 H Blood Pressure 139/90 139/90 Pulse Oximetry 88 L 100 Oxygen Delivery Nasal Cannula Oxygen Flow Rate 6 10/06/24 13:45 10/06/24 14:00 10/06/24 14:00 Temperature Pulse Rate 81 81 Respiratory Rate 35 H 32 H Blood Pressure Pulse Oximetry 98 100 Oxygen Delivery BiPAP BiPAP Oxygen Flow Rate 10/06/24 14:00 10/06/24 14:55 10/06/24 14:55 Temperature Pulse Rate 81 93 93 Respiratory Rate 30 H 30 H Blood Pressure Pulse Oximetry 100 100 Oxygen Delivery BiPAP Oxygen Flow Rate 10/06/24 15:03 10/06/24 15:51 10/06/24 16:11 Temperature Pulse Rate 96 90 88 Respiratory Rate 26 H 22 H 22 H Blood Pressure 103/63 104/59 L 104/59 L Pulse Oximetry 98 95 100 Oxygen Delivery Oxygen Flow Rate 10/06/24 16:25 10/06/24 16:45 10/06/24 16:45 Temperature Pulse Rate 87 83 83 Respiratory Rate 28 H 24 H Blood Pressure Pulse Oximetry 98 98 Oxygen Delivery BiPAP BiPAP Oxygen Flow Rate 10/06/24 17:02 10/06/24 17:50 10/06/24 17:51 Temperature 36.9 C Pulse Rate 128 H 82 79 Respiratory Rate 29 H 26 H 26 H Blood Pressure 118/84 Pulse Oximetry 100 100 Oxygen Delivery BiPAP Oxygen Flow Rate 10/06/24 18:00 10/06/24 18:04 10/06/24 20:00 Temperature Pulse Rate 95 85 Respiratory Rate 25 H Blood Pressure Pulse Oximetry 100 Oxygen Delivery Nasal Cannula Oxygen Flow Rate 8 10/06/24 20:00 10/06/24 20:00 10/06/24 22:00 Temperature 36.6 C Pulse Rate 90 89 79 Respiratory Rate 29 H Blood Pressure 108/66 Pulse Oximetry 94 Oxygen Delivery Oxygen Flow Rate 10/07/24 00:00 10/07/24 00:00 10/07/24 00:00 Temperature 36.8 C Pulse Rate 77 85 Respiratory Rate 19 Blood Pressure 95/56 L Pulse Oximetry 92 Oxygen Delivery BiPAP Oxygen Flow Rate 10/07/24 02:00 10/07/24 03:01 10/07/24 04:00 Temperature 36.6 C Pulse Rate 75 87 91 Respiratory Rate 18 19 Blood Pressure 100/58 L Pulse Oximetry 93 Oxygen Delivery Oxygen Flow Rate 10/07/24 04:00 10/07/24 04:00 10/07/24 06:00 Temperature Pulse Rate 91 82 Respiratory Rate Blood Pressure Pulse Oximetry 93 Oxygen Delivery Nasal Cannula Oxygen Flow Rate 8 10/07/24 07:50 10/07/24 08:00 10/07/24 08:43 Temperature 37.0 C Pulse Rate 81 88 Respiratory Rate 20 18 Blood Pressure 108/54 L Pulse Oximetry 89 L 94 Oxygen Delivery Nasal Cannula Oxygen Flow Rate 8 10/07/24 08:54 10/07/24 10:36 10/07/24 11:47 Temperature 36.4 C L Pulse Rate 98 88 Respiratory Rate 22 H Blood Pressure 97/55 L Pulse Oximetry 90 Oxygen Delivery Nasal Cannula Oxygen Flow Rate 8 Exam 2 Const: General: cooperative and in distress; No comfortable O rientation/consciousness: oriented to person, oriented to place and oriented to time Other: Ill-appearing in mild respiratory distress HENMT: Head: normal to inspection Ears: hearing grossly normal bilaterally Eyes: General: appearance normal, both eyes and all related structures Neck: Neck: normal visual inspection Chest: Chest palpation & inspection: normal inspection of the chest Resp: Effort & Inspection: normal respiratory effort and able to speak in complete sentences Auscultation: crackles, no rales, no rhonchi, wheezes and diminished lung sounds Cardio: Jugular venous distension: no JVD GI: Inspection: normal to inspection GI Palp: No abdominal tenderness Skin: General skin exam: normal color Neuro: General: oriented to person, oriented to place and oriented to time Extrem: General: normal to inspection and no edema Psych: Appearance: grossly normal Results Laboratory Findings 10/07/24 03:59 10/07/24 03:59 ABG, PT/INR, D-dimer: ABG ABG pH 7.389 (7.350-7.450) 10/06/24 13:52 ABG pCO2 39.8 mmHg (35.0-45.0) 10/06/24 13:52 ABG pO2 165.4 mmHg (80.0-100.0) H 10/06/24 13:52 ABG O2 Saturation 99.1 % (95.0-100.0) 10/06/24 13:52 PT/INR, D-dimer PT 12.9 Seconds (11.1-14.7) 10/06/24 13:33 INR 1.0 10/06/24 13:33 Abnormal lab findings: Abnormal Labs 10/06/24 10/06/24 10/06/24 13:33 13:52 16:05 WBC 11.0 H RBC Hgb 13.1 L D Hct MCHC 29.7 L RDW 17.2 H Plt Count Immature Gran % (Auto) 2.1 H Neut % (Auto) 92.8 H Lymph % (Auto) 2.3 L [place] % (Auto) 2.4 L Lymph # (Auto) 0.25 L Abs Immat Gran (auto) 0.23 H Absolute Neuts (auto) 10.3 H Neutrophils % (Manual) Lymphocytes % (Manual) Abs Lymphs (Manual) ABG pO2 165.4 H Sodium 135 L Chloride 97 L BUN 48 H D Estimated GFR 54 L Glucose 142 H Lactic Acid 5.0 H* 4.1 H* AST 74 H ALT 139 H Alkaline Phosphatase 240 H NT-Pro-B Natriuret Pep 567 H 10/07/24 03:59 WBC RBC 3.35 L Hgb 9.5 L D Hct 31.9 L MCHC 29.8 L RDW 16.9 H Plt Count 106 L Immature Gran % (Auto) Neut % (Auto) Lymph % (Auto) [place] % (Auto) Lymph # (Auto) Abs Immat Gran (auto) Absolute Neuts (auto) Neutrophils % (Manual) 90 H Lymphocytes % (Manual) 1.0 L Abs Lymphs (Manual) 0.06 L ABG pO2 Sodium 133 L Chloride BUN 33 H D Estimated GFR Glucose 139 H Lactic Acid AST ALT Alkaline Phosphatase NT-Pro-B Natriuret Pep Diagnostic Findings Additional studies: ITS Impressions Chest X-Ray 10/06/24 14:37 IMPRESSION: No new acute cardiopulmonary process. Improving right medial basilar airspace disease and trace right effusion.
[2024-10-07] MEDS: CEFEPIME 2 GM/NS 50 ML 2 GM/50 ML BAG IVPB ×2 (14:15→21:50)
[2024-10-07] MEDS: levoFLOXacin 750 MG/D5W 150 ML 750 MG/150 ML BAG 100 MG IVPB (14:15)
[2024-10-07 14:55] LABS: D Dimer 1.76 ug/mL (<0.48)
--- NOTE | 2024-10-07 15:47 | PHAR ---
Drug Name:Opsumit Ingredients:??Macitentan?-- 10 MG Color:?White Shape:?Biconvex Imprint:??10?;?10 Imprint Code Description:?Debossed with 10 on both sides Form:?Film-Coated Oral Tablet
[2024-10-07] MEDS: MACITENTAN 10 MG 1 EACH PO (16:06)
[2024-10-07] MEDS: IPRATROPIUM 0.5 MG/ALBUTEROL SULFATE 2.5 MG AMPUL.NEB 3 ML INHALATION ×3 (16:41→23:54)
[2024-10-07 16:57] LABS: MRSA (PCR) DETECTED (NOT DETECTE)
[2024-10-07] MEDS: methylPREDNISolone SOD SUCC 40 MG VIAL 20 MG IV PUSH ×2 (17:47→23:54)
[2024-10-07] MEDS: VANCOMYCIN 1,750 MG/NS 500 ML 1,750 MG/500 ML BAG 250 MG IVPB (19:25)
[2024-10-07] MEDS: MIRTAZAPINE 15 MG TABLET BY MOUTH (20:09)
[2024-10-07] MEDS: PANTOPRAZOLE 40 MG TABLET PO (20:09)
[2024-10-08] VITALS (34 sets, daily range): BP systolic 93–121; BP diastolic 38–79; PULSE 6–112; RESP 18–28; TEMP 36.3–36.8; O2SAT 89–100
[2024-10-08] MEDS: IPRATROPIUM 0.5 MG/ALBUTEROL SULFATE 2.5 MG AMPUL.NEB 3 ML INHALATION ×5 (04:18→21:15)
[2024-10-08 04:25] LABS: Basophils Percent Auto 0.1 % (0.2-1.2); Hematocrit 28.4 % (42.0-52.0); Hemoglobin 8.5 g/dL (14.0-18.0); Immature Granulocyte Absolute 0.09 K/mm3 (0.00-0.031); Lymphocytes Absolute Auto 0.25 K/mm3 (0.9-3.2); Lymphocytes Percent Auto 2.8 % (18.3-44.2); Mean Corpuscular HGB Conc 29.9 g/dl (32-36); Mean Corpuscular Hemoglobin 28.7 pg (26-34); Mean Corpuscular Volume 95.9 fl (80-100); Mean Platelet Volume 10.1 fl (7.4-10.4); Monocytes Absolute Auto 0.3 K/mm3 (0.1-0.6); Monocytes Percent Auto 2.8 % (2.6-8.5); Neutrophils Absolute Auto 8.4 K/mm3 (1.3-6.7); Neutrophils Percent Auto 93.3 % (45.5-73.1); Platelet Count Result 128 k/mm3 (150-375); Red Blood Count 2.96 M/mm3 (4.6-6.20); Red Cell Distribution Width 17.2 % (11.5-14.5)
[2024-10-08 04:55] LABS: Alanine Aminotransferase 89 U/L (6-50); Albumin Level 2.5 g/dL (3.5-5.1); Alkaline Phosphatase 171 U/L (38-126); Anion Gap 4 mmol/L (4-12); Aspartate Amino Transferase 54 U/L (17-59); Bilirubin,Total 0.3 mg/dL (0.2-1.3); Blood Urea Nitrogen 26 mg/dL (9-20); Calcium 8.7 mg/dL (8.4-10.2); Carbon Dioxide 25 mmol/L (22-30); Chloride 106 mmol/L (98-107); Estimated CRCL calculation 56 ml/min; Estimated Glomerular Filt Rate > 60; Glucose 168 mg/dL (65-110); Magnesium 2.1 mg/dL (1.6-2.3); NT Pro B Type Natriuretic Pept 1260 pg/mL (19.9-100); Potassium 3.9 mmol/L (3.4-5.0); Sodium 135 mmol/L (137-145); Total Protein 4.9 g/dL (6.3-8.2)
[2024-10-08 05:01] LABS: Procalcitonin 0.1 ng/mL
[2024-10-08] MEDS: CEFEPIME 2 GM/NS 50 ML 2 GM/50 ML BAG IVPB ×3 (05:23→21:09)
[2024-10-08] MEDS: methylPREDNISolone SOD SUCC 40 MG VIAL 20 MG IV PUSH ×2 (05:25→11:53)
--- NOTE | 2024-10-08 05:59 | PC.NURSE ---
I have reviewed Samra's cxharting and assessment of pt. and agree with Samra's charting and assessment of the pt.
--- NOTE | 2024-10-08 07:10 | P.PNIM_ITS ---
Progress Note: A&P Assessment and Plan (1) Acute and chronic respiratory failure with hypoxia: Code(s): J96.21 - Acute and chronic respiratory failure with hypoxia Status: Acute Assessment and Plan: * Symptoms: SOB, congestion, cough * SpO2: 92% * Oxygen supplementation: 8L (baseline) * Suspected cause: COPD exacerbation, infection? * ABG: pH 7.389, pCO2 39.8, PO2 165.4, HC03 23.5, O2 saturation in mid 0.1%, O2 content 18.3%, oxyhemoglobin 98.5 % * EKG: NSR, LAD, LBBB * Chest XR: No acute cardiopulmonary findings * Pulmonology consulted * Dimer elevated * Goal O2% -> 90-94% * Currently on 6L NC, can adjust up to 15L if needed * Airvo or Vapotherm if needed if still SOB * CTA * Severely limited evaluation of the segmental and more distal pulmonary arteries. No central acute pulmonary embolus acute. * Segmental right medial basilar and subsegmental lingular consolidation. ( Seen on previous imaging in 07/2024, but now larger) * Treat empirically for pneumonia (2) COPD exacerbation: Code(s): J44.1 - Chronic obstructive pulmonary disease with (acute) exacerbation Status: Acute Assessment and Plan: * Monitor vital signs, I&Os, neuro status and patient is a fall risk * Monitor serum electrolytes, cultures and CBC * Monitor Oxygen saturation, Oxygen via NC; keep SpO2 greater than 88% * Initially placed on Azithromycin 500mg & Rocephin -> Switching to Cefepime and Levaquin on 10/07 * Duonebz q6H * BIPAP held due to comfort * Per Pulm recommendations * Decrease Solumedrol to 20mg IV Q6hr * Add ipratropium nebulizers * Urine for Legionella, Pneumococcal, mycoplamsa IGM * Respiratory panel (3) Pneumonia: Code(s): J18.9 - Pneumonia, unspecified organism Status: Acute Assessment and Plan: * CTA * Severely limited evaluation of the segmental and more distal pulmonary arteries. No central acute pulmonary embolus acute. * Segmental right medial basilar and subsegmental lingular consolidation. ( Seen on previous imaging in 07/2024, but now larger) * Pulm already follow, appreciate further recs * Already placed on Levaquin, Cefepime and Vanc (for MRSA) - continue * Respiratory pathogen panel, urine Legionella, urine pneumococcal and serum mycoplasma IgM pending * Guaifenesin and Cornet flutter valve to help with expectoration (4) MRSA nasal colonization: Code(s): Z22.322 - Carrier or suspected carrier of Methicillin resistant Staphylococcus aureus Status: Acute Assessment and Plan: * On 10/07, MRSA nasal swab was (+) * Started on IV Vanc * Isolation precautions (5) Severe pulmonary hypertension: Code(s): I27.20 - Pulmonary hypertension, unspecified Status: Chronic Assessment and Plan: * See problems above * Follows with [facility] * Takes Macitentan 10mg daily, Sildenafil 40mg TID, Lasix 20mg daily, prednison 10mg daily * Transfer to [facility] - Accepted - Pending Bed (6) Lactic acidosis: Code(s): E87.20 - Acidosis, unspecified Status: Acute Assessment and Plan: * In ED: 5.0 * Minimal improvement lactic acid after 1 L fluid bolus, gave 2 L fluid bolus with IVF * Repeat lactic acid in a.m. * 10/07: 1.7 * Resolved (7) WARD (acute kidney injury): Code(s): N17.9 - Acute kidney failure, unspecified Status: Acute Assessment and Plan: * In ED: Cr 1.3, BUN 48 * IV hydration * Avoid nephrotoxic medications as able * Monitor daily labs * 10/08: Cr 0.94, BUN 26 (8) Combined systolic and diastolic cardiac dysfunction: Code(s): I51.89 - Other ill-defined heart diseases Status: Acute Assessment and Plan: * Monitor for fluid overload as patient received 2 L of IV fluid per sepsis protocol in WARD * Currently holding home diuretics re-evaluate in the morning * Repeat Echo on 10/08/2024 - pending at this time * Changed PO lasix to IV 40mg (9) Coronary artery disease: Qualifiers: Associated angina: without angina Coronary Disease-Associated Artery/Lesion type: [place] artery [place] vs. transplanted heart: [place] heart Qualified Code(s): I25.10 - Atherosclerotic heart disease of [place] coronary artery without angina pectoris Code(s): I25.10 - Atherosclerotic heart disease of [place] coronary artery without angina pectoris Status: Chronic Assessment and Plan: * Continue metoprolol, losartan, and statin (10) Hypertension: Qualifiers: Hypertension type: primary hypertension Qualified Code(s): I10 - Essential (primary) hypertension Code(s): I10 - Essential (primary) hypertension Status: Chronic Assessment and Plan: * Continue pulmonary hypertension medications * Stable Subjective Date/time seen: 10/08/24 07:10 Interval history: 79-year-old male with past medical history of COPD, anemia, systolic and diastolic CHF hypertension, and hypothyroidism presents the hospital with shortness of breath. Patient states that few days ago he noticed that he started to have a cough and felt congestion. 10/08/2024 Patient sitting in bed at time of examination. Still in process of being transferred to [facility]. Currently on 6L NC. MRSA (+), started on Vanc. Breathing seems improved today, no wheezing, crackles or rhonchi in lung barron. Adding Miralax for constipation. Physical exam seems improved since yesterday. Otherwise no changes at this time. Review of Systems Review of Systems: 12 systems were reviewed and are negativ e except for as per HPI. Exam Narrative: General: Ill appearing, appears stated age. HEENT: normocephalic, atraumatic. Mucous membranes moist. EOMI, PERRLA, bilateral sclera anicteric, no conjunctival injection. Neck supple without JVD, lymphadenopathy, or bruit. Respiratory: No crackles, rales, rhonchi, wheezing or diminished lung sounds. Mild congestion. Cardiovascular: Regular rate and rhythm, normal S1-S2 upon ascultation. No murmurs, rubs, or clicks. PMI is nondisplaced, capillary refill less than 3 second. Abdomen: Soft, round, no pulsatile masses, nondistended and nontender. No r ebound, no guarding. No CVA tenderness, no hepatosplenomegaly. Bowel sounds present to all four quadrants. No high pitch or tinkling sounds, resonant to percussion. Extremities: No cyanosis, clubbing, or edema present. Pulses are palpable 2/2. Active ROM to all four extremities. Neuro: Alert and orientated x 4. PERRLA. Cranial nerves 2-12 intact without focal deficit. Skin: Warm, dry, and intact, without rash, erythema, or lesion. Psych: pleasant, cooperative, normal speech, normal affect, no hallucinations, no dysarthia BiPAP high-flow Objective Data Vital Signs Vital Signs: Vital Signs - 24 hr 10/07/24 07:50 10/07/24 08:00 10/07/24 08:43 Temperature 98.6 F Pulse Rate 81 88 Respiratory Rate 20 18 Blood Pressure 108/54 L Pulse Oximetry 89 L 94 Oxygen Delivery Nasal Cannula Oxygen Flow Rate 8 10/07/24 08:54 10/07/24 10:36 10/07/24 11:47 Temperature 97.5 F L Pulse Rate 98 88 Respiratory Rate 22 H Blood Pressure 97/55 L Pulse Oximetry 90 Oxygen Delivery Nasal Cannula Oxygen Flow Rate 8 10/07/24 12:00 10/07/24 12:00 10/07/24 14:00 Temperature Pulse Rate 79 76 Respiratory Rate Blood Pressure Pulse Oximetry 92 Oxygen Delivery Nasal Cannula Oxygen Flow Rate 8 10/07/24 14:05 10/07/24 16:23 10/07/24 16:24 Temperature 98.4 F Pulse Rate 74 82 Respiratory Rate 18 22 H Blood Pressure 84/48 L 96/44 L Pulse Oximetry 88 L Oxygen Delivery Oxygen Flow Rate 10/07/24 16:41 10/07/24 16:45 10/07/24 16:45 Temperature Pulse Rate 78 86 Respiratory Rate 18 Blood Pressure Pulse Oximetry 92 Oxygen Delivery Nasal Cannula Oxygen Flow Rate 8 10/07/24 18:00 10/07/24 19:58 10/07/24 20:00 Temperature 97.5 F L Pulse Rate 84 76 90 Respiratory Rate 18 18 Blood Pressure 109/52 L Pulse Oximetry 93 Oxygen Delivery Oxygen Flow Rate 10/07/24 20:00 10/07/24 20:00 10/07/24 20:08 Temperature Pulse Rate 84 76 Respiratory Rate 18 Blood Pressure Pulse Oximetry 92 Oxygen Delivery High Flow Nasal Cannula Oxygen Flow Rate 8 10/07/24 20:44 10/07/24 22:00 10/07/24 23:54 Temperature Pulse Rate 76 78 76 Respiratory Rate 18 18 Blood Pressure Pulse Oximetry 95 Oxygen Delivery High Flow Therapy with Na Oxygen Flow Rate 8 10/08/24 00:00 10/08/24 00:00 10/08/24 00:00 Temperature 97.5 F L Pulse Rate 81 85 Respiratory Rate 20 Blood Pressure 93/48 L Pulse Oximetry 93 94 Oxygen Delivery High Flow Nasal Cannula Oxygen Flow Rate 8 10/08/24 00:04 10/08/24 02:00 10/08/24 04:00 Temperature Pulse Rate 76 76 Respiratory Rate 18 Blood Pressure Pulse Oximetry 100 Oxygen Delivery High Flow Nasal Cannula Oxygen Flow Rate 8 10/08/24 04:00 10/08/24 04:00 10/08/24 04:18 Temperature 97.4 F L Pulse Rate 72 74 76 Respiratory Rate 20 18 Blood Pressure 101/38 L Pulse Oximetry 95 Oxygen Delivery Oxygen Flow Rate 10/08/24 04:31 10/08/24 04:45 10/08/24 04:54 Temperature Pulse Rate 76 78 Respiratory Rate 18 18 Blood Pressure Pulse Oximetry 95 98 Oxygen Delivery High Flow Therapy with Na High Flow Nasal Cannula Oxygen Flow Rate 7 7 10/08/24 06:00 Temperature Pulse Rate 83 Respiratory Rate Blood Pressure Pulse Oximetry Oxygen Delivery Oxygen Flow Rate Intake/Output Intake/Output: Intake & Output 10/05/24 10/06/24 10/07/24 10/08/24 23:59 23:59 23:59 23:59 Intake Total 2540 4140 500 Output Total 25 1000 400 Balance 2515 3140 100 Meds/Results Medications: Active Medications Generic Name Dose Route Start Last Admin Trade Name Freq PRN Reason Stop Dose Admin Acetaminophen 650 mg 10/06/24 21:56 Acetaminophen 325 Mg Tablet PO Q4H PRN Mild Pain (1-3) or Fever Hydrocodone Bitart/Acetaminophen 1 tab 10/06/24 21:59 Hydrocodone/Acetaminophen (*Crx) 10-325 Mg Tablet PO BID PRN pain 4-10 Albuterol 2.5 mg 10/07/24 14:43 Albuterol Sulfate Neb 2.5 Mg/3 Ml Inh INHALATION Q4HR PRN Wheezing Albuterol/Ipratropium 3 ml 10/07/24 16:00 10/08/24 04:18 Ipratropium 0.5 Mg/Albuterol Sulfate 2.5 Mg Ampul.Neb 3 Ml INHALATION 3 ml Q4HRT SALAZAR Administration Atorvastatin Calcium 80 mg 10/07/24 09:00 10/07/24 08:54 Atorvastatin 40 Mg Tablet PO 80 mg DAILY SALAZAR Administration Furosemide 40 mg 10/08/24 09:00 Furosemide 40 Mg Tablet PO DAILY SALAZAR Heparin Sodium (Porcine) 5,000 units 10/07/24 09:00 10/07/24 20:15 Heparin Sodium 5,000 Units/Ml Vial SUB-Q 5,000 units Q12HR SALAZAR Administration Sodium Chloride 1,000 mls @ 125 mls/hr 10/06/24 17:55 10/07/24 15:00 Normal Saline Iv IV CONT Infused .Q8H SALAZAR Infusion Cefepime HCl 2 gm in 50 mls @ 100 mls/hr 10/07/24 14:00 10/08/24 05:55 Maxipime 2 Gm/Ns 50 Ml IVPB Infused Q8H SALAZAR Infusion Levofloxacin/Dextrose 750 mg in 150 mls @ 100 mls/hr 10/07/24 15:00 10/07/24 16:08 Levaquin 750 Mg/D5w 150 Ml IVPB Infused Q24H SALAZAR Infusion Vancomycin HCl 1,000 mg in 250 mls @ 250 mls/hr 10/08/24 19:00 Vancomycin 1,000 Mg/Ns 250 Ml IVPB Q24H SALAZAR Losartan Potassium 25 mg 10/07/24 09:00 10/07/24 08:54 Losartan Potassium 25 Mg Tablet PO 25 mg DAILY SALAZAR Administration Methylprednisolone Sodium Succinate 20 mg 10/07/24 18:00 10/08/24 05:25 Methylprednisolone Sod Succ 40 Mg Vial IV PUSH 20 mg Q6HR SALAZAR Administration Metoprolol Succinate 25 mg 10/07/24 09:00 10/07/24 08:54 Metoprolol Succinate Ext Rel 25 Mg Tabcr PO 25 mg DAILY SALAZAR Administration Mirtazapine 15 mg 10/07/24 21:00 10/07/24 20:09 Mirtazapine 15 Mg Tablet BY MOUTH 15 mg HS SALAZAR Administration Non-Formulary ( 1 each 10/08/24 09:00 Macitentan 10 Mg PO 11/07/24 08:59 Oral Tablet) DAILY SALAZAR Non-Formulary ( 1 each 10/07/24 16:05 10/07/24 16:06 Macitentan 10 Mg PO 11/06/24 16:04 1 each Oral Tablet) DAILY SALAZAR Administration Pantoprazole Sodium 40 mg 10/07/24 21:00 10/07/24 20:09 Pantoprazole 40 Mg Tablet PO 40 mg Q12HR SALAZAR Administration Polyethylene Glycol 17 gm 10/07/24 09:00 10/07/24 09:14 Polyethylene Glycol 3350 17 Gm Powd.Pack PO 17 gm QAM PRN Administration constipation Sildenafil Citrate 60 mg 10/06/24 22:20 10/07/24 20:08 Sildenafil Citrate 20 Mg Tablet PO 60 mg Q12HR SALAZAR Administration Spironolactone 25 mg 10/08/24 09:00 Spironolactone 25 Mg Tablet PO DAILY [facility] Radiology Results: ITS Impressions Chest X-Ray 10/06/24 14:37 IMPRESSION: No new acute cardiopulmonary process. Improving right medial basilar airspace disease and trace right effusion. Chest CTA 10/07/24 17:42 IMPRESSION: Severely limited evaluation of the segmental and more distal pulmonary arteries. No central acute pulmonary embolus acute. Segmental right medial basilar and subsegmental lingular consolidation. Moderate compression deformity at T7, presumably chronic unless accompanied by a cute pain/tenderness. Labs Labs: Laboratory Results - last 24 hr 10/07/24 10/07/24 10/08/24 14:30 15:30 04:08 WBC 9.0 RBC 2.96 L Hgb 8.5 L Hct 28.4 L MCV 95.9 MCH 28.7 MCHC 29.9 L RDW 17.2 H Plt Count 128 L MPV 10.1 Immature Gran % (Auto) 1.0 H Neut % (Auto) 93.3 H Lymph % (Auto) 2.8 L [place] % (Auto) 2.8 Eos % (Auto) 0.0 Baso % (Auto) 0.1 L Lymph # (Auto) 0.25 L [place] # (Auto) 0.3 Eos # (Auto) 0.0 Baso # (Auto) 0.0 Abs Immat Gran (auto) 0.09 H Absolute Neuts (auto) 8.4 H Absolute Nucleated RBC 0.000 Nucleated RBC % 0.0 D-Dimer 1.76 H Sodium 135 L Potassium 3.9 Chloride 106 Carbon Dioxide 25 Anion Gap 4 BUN 26 H Creatinine 0.94 Estim Creat Clear Calc 56 Estimated GFR > 60 Glucose 168 H Calcium 8.7 Magnesium 2.1 Total Bilirubin 0.3 AST 54 ALT 89 H Alkaline Phosphatase 171 H NT-Pro-B Natriuret Pep 1260 H Total Protein 4.9 L Albumin 2.5 L Procalcitonin 0.1 Nasal MRSA (PCR) Detected A* Quality VTE Prophylaxis VTE prophylaxis: mechanical ordered and pharmacologic ordered
[2024-10-08] MEDS: ATORVASTATIN 40 MG TABLET 80 MG PO (08:23)
[2024-10-08] MEDS: FUROSEMIDE INJ 40 MG/4 ML VIAL IV PUSH (08:24)
[2024-10-08] MEDS: SILDENAFIL CITRATE 20 MG TABLET 60 MG PO ×2 (08:24→20:11)
[2024-10-08] MEDS: guaiFENesin 12 HR 600 MG TABCR 1200 MG PO ×2 (08:25→20:12)
[2024-10-08] MEDS: METOPROLOL SUCCINATE EXT REL 25 MG TABCR PO (08:25)
[2024-10-08] MEDS: HEPARIN SODIUM 5,000 UNITS/ML VIAL 5000 UNITS SUB-Q ×2 (08:25→20:12)
[2024-10-08] MEDS: PANTOPRAZOLE 40 MG TABLET PO ×2 (08:26→20:12)
[2024-10-08] MEDS: SPIRONOLACTONE 25 MG TABLET PO (08:30)
[2024-10-08] MEDS: MACITENTAN 10 MG 1 EACH PO (08:40)
--- NOTE | 2024-10-08 11:50 | P.PNPL_ITS ---
Progress Note: A&P Assessment and Plan (1) Acute and chronic respiratory failure with hypoxia: Code(s): J96.21 - Acute and chronic respiratory failure with hypoxia Status: Acute Assessment and Plan: Patient with chronic hypoxemic respiratory failure requiring 6 L nasal cannula oxygen. Now requiring 8 L nasal cannula. Etiology: related to his pulmonary hypertension, COPD, heart failure with reduced ejection fraction at 38% per cardiology note, untreated obstructive sleep apnea, possible COPD exacerbation, infection and or fluid overload. On presentation patient initially required BiPAP 50%. Of note the patient told me he will not wear BiPAP anymore. Plan: I will order D-dimer and if this is positive will order CT angiogram of the chest. Goal saturation 90- 94%. currently is on 8 L nasal cannula. Adjust oxygen up to 15 L nasal cannula if needed and if he still remains hypoxemic will treat with Airvo or Vapotherm. I have discontinued BiPAP as he says this mask makes him claustrophobic and he will not wear it any more. patient was referred to [facility] to be evaluated by pulmonary hypertension team and he was accepted but waiting for a bed. Later in the day patient was switched to cefepime and Levaquin and patient's MRSA swab was positive and he was started on vancomycin. patient's D-dimer positive at 1.76. CT angiogram of the chest with motion artifact and showed no PE, moderate to severe apical predominant centrilobular emphysema, right lower lobe consolidation with air bronchograms. Compared to CT scan of the chest on 08/18/2024 the right lower lobe infiltrate on 08/18 is now more consolidated. 10/08/2024: Overall the patient tells me he is breathing about the same. When he is sitting he is 80% back to his baseline. When he walks to the chair he still has severe dyspnea on exertion is states that he has 50% back to his baseline. He says his cough is a little bit better. He has no phlegm and no hemoptysis. Patient is currently on 7 L nasal cannula saturations 98%. White blood cell count 9.1, creatinine 0.94, procalcitonin 0.1. Plan: Will treat for right lower lobe pneumonia and patient recently in hospital and rehab center. Patient currently on vancomycin, cefepime and Levaquin, both day 2. Respiratory pathogen panel, urine Legionella, urine pneumococcal and serum mycoplasma IgM pending. will add guaifenesin and Cornet flutter valve to help with expectoration Discussed with Dr. Long and in the room, will follow with you. (2) Severe pulmonary hypertension: Code(s): I27.20 - Pulmonary hypertension, unspecified Status: Chronic Assessment and Plan: Regarding his pulmonary hypertension, patient followed at [facility] and last seen on 03/21/2024. 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 He has remained on the same vasodilators, no intercurrent COPD exacerbations or infection. Shortness of breath comes and goes with good days and bad days. Variability is tied to how much pain he is having in his back. Was scheduled for spine surgery in December but got postponed to feeling better in surgeon recommended PT. Completed PT but had no improvement. Plan for injections. No swelling or weight gain. Weight mid 160s. Medicines include macitentan 10 mg a day. Sildenafil 40 mg 3 times a day Lasix 20 mg a day, prednisone 10 mg a day were tabs a Pean, breasts tree, aspirin 81, albuterol p.r.n.. Plan: Continue sildenafil, macitentan 10 mg Q day and low-dose intensity diuretics. Continue breztri. Return in 3 months with echo, spirometry and WFD if able. tells me that they some a a nurse practitioner in the Pulmonary Clinic in about June of 2024 and at that time he had worsening shortness of breath and could only walk room to room since Thanksgiving time. They ordered an echocardiogram and continued his medications. patient followed by [facility] Cardiology, Dr. Castelan and last seen on 08/08/2024. Note states that recent echocardiogram at [facility] showed decreased LV function at 38%. Beta-angeles Metoprolol succinate 25 q.day and losartan 25 mg p.o. q.day added. patient was scheduled to follow up with [facility] hypertension [facility] on 10/16/2024. Patient is scheduled to follow up with [facility] on 10/30/2024 10/07/2024: Patient states since Thanksgiving he has much worse dyspnea on exertion and is limited at walking room to room and now this is even worsened he has rest shortness of breath. Plan: Recommend patient be transferred to [facility] for pulmonary hypertension specialist consultation. I spoke to the patient and he is in agreem ent with this plan. Dr. Long will call [facility] to initiate transfer. In the meantime I will continue his sildenafil 60 mg p.o. b.i.d., macitentan 10 mg p.o. q.day. Patient is on Lasix 40 mg p.o. q.day at home and presents with a BNP that is mildly elevated at 567. Initially had a lactic acid of 5.0 was given IV fluids. on 10/08/2024, will reassess for Lasix for gentle diuresis. Will maintain adequate oxygenation. Echocardiogram on 10/08/2024. patient was referred to [facility] to be evaluated by pulmonary hypertension team and he was accepted but waiting for a bed. Later in the day patient was switched to cefepime and Levaquin and patient's MRSA swab was positive and he was started on vancomycin. patient's D-dimer positive at 1.76. CT angiogram of the chest with motion artifact and showed no PE, moderate to severe apical predominant centrilobular emphysema, right lower lobe consolidation with air bronchograms. Compared to CT scan of the chest on 08/18/2024 the right lower lobe infiltrate on 08/18 is now more consolidated. 10/08/2024: Overall the patient tells me he is breathing about the same. BNP increased from 567 on 10/07/2019 5-1260 today. Plan: Have changed his Lasix 40 p.o. q.day to Lasix 40 IV today. Echocardiogram with bubble study ordered. Awaiting transfer to [facility] (3) COPD (chronic obstructive pulmonary disease): Code(s): J44.9 - Chronic obstructive pulmonary disease, unspecified Status: Acute Assessment and Plan: GOLD grade 2 group B COPD (66 PY, quit 2006, alpha 1 phenotype MM on 04/01/2022, 11/04/2020 FEV1 1.81, 55%, no bronchodilaor response, normal lung volumes and DLCO moderately decreased when adjusted for alveolar volume), most recent CT scan in our system 07/08/2022 with moderate to severe apical predominant centrilobular emphysema. chronic hypoxemic respiratory failure requiring 6 L nasal cannula 24-7. Patient presents with worsening cough, worsening shortness of breath, wheezes with increased phlegm production. I will treat him for COPD exacerbation. 10/07/2024: Patient says he feels a little better today cough, his cough is 80% back to his baseline, his rest shortness of breath is normal. He denies fever. He is on 7 L nasal cannula saturations 91%. Plan: I will decrease his Solu-Medrol to 20 mg IV q.6 hours. I will add ipratropium nebulizers and placed him on DuoNebs q.4 hours. Since the patient is on steroids, beta agonist and muscarinic antagonists will discontinue his inhaled trelegy. patient was on azithromycin 500 3 times a week and will hold this while he is in the hospital. Antibiotics will include cefepime and Levaquin since he was recently admitted to [facility] and then to [facility]. will check MRSA RT PCR assay and if positive will add vancomycin. Will send urine for Legionella, urine for pneumococcal, mycoplasma IgM and respiratory pathogen panel. Goal saturation 90-94%, adjust oxygen accordingly. 10/08/2024: Patient with expiratory wheezes. Plan: Will decrease his steroids to Solu-Medrol 20 mg IV q.12 hours. Patient has tremor and will decrease his DuoNebs from q.4 (4) Obstructive sleep apnea: Code(s): G47.33 - Obstructive sleep apnea (adult) (pediatric) Status: Chronic Assessment and Plan: 10/21/2021: The patient had an overall AHI of 17.6 and a central apnea index of 11.3. The patient had a supine AHI of 55.2. The patient had an overall AHI of 17.6 and a central apnea index of 11.3. The patient was started on CPAP 5 cm H2O and titrated to BPAP 14/10 cm H2O.?I recommend that the patient be prescribed CPAP 11 cm H2O with an EPR of 3, a medium Resmed AirTouch F20 full face mask, CPAP filters/tubing and humidifier chamber.? Patient was seen by the pulmonary sleep specialist Dr. Rosa in the outpatient clinic and after long discussion on 03/29/2022 it was deemed that the patient could not tolerate CPAP and was discontinued. 10/07/24: I again talked to the patient today and he simply cannot tolerate CPAP. Will attempt to maintain adequate oxygenation at night. Subjective Date/time seen: 10/08/24 11:50 Interval history: 10/07/2024: This is a new pulmonary consult for COPD and pulmonary hypertension 79-year-old man with a history of GOLD grade 2 group B COPD (66 PY, quit 2006, alpha 1 phenotype MM on 04/01/2022, 11/04/2020 FEV1 1.81, 55%, no bronchodilaor response, normal lung volumes and DLCO moderately decreased when adjusted for alveolar volume), most recent CT scan in our system 07/08/2022 with moderate to severe apical predominant centrilobular emphysema,?primary central sleep apnea with some obstruction and Richard-Mccurdy breathing intolerant to CPAP, pulmonary hypertension related to limited systemic sclerosis with positive anticentromere antibody followed at [facility], hypoxemic respiratory failure requiring 7 L 27-7. COVID pneumonia 04/2020, coronary artery disease status post CABG 2015. patient recently admitted to [facility] with a GI bleed secondary to gastric ulcer and discharged on 08/28/2024 on Protonix 40 p.o. b.i.d., aspirin was discontinued, azithromycin 3 times a week, Regarding his pulmonary hypertension, patient followed at [facility] and last seen on 03/21/2024. 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 he has remained on the same vasodilators, no intercurrent COPD exacerbations or infection. Shortness of breath comes and goes with good days and bad days. Variability is tied to how much pain he is having in his back. Was scheduled for spine surgery in December but got postponed to feeling better in surgeon recommended PT. Completed PT but had no improvement. Plan for injections. No swelling or weight gain. Weight mid 160s. Medicines include macitentan 10 mg a day. Sildenafil 40 mg 3 times a day Lasix 20 mg a day, prednisone 10 mg a day were tabs a Pean, breasts tree, aspirin 81, albuterol p.r.n.. Plan: Continue sildenafil, macitentan 10 mg Q day and low-dose intensity diuretics. Continue breztri. Return in 3 months with echo, spirometry and WF D if able. tells me that they some a a nurse practitioner in the Pulmonary Clinic in about June of 2024 and at that time he had worsening shortness of breath and could only walk room to room since Thanksgiving time. They ordered an echocardiogram and continued his medications. patient followed by [facility]iology, Dr. Castelan and last seen on 08/08/2024. Note states that recent echocardiogram at [facility] showed decreased LV function at 38%. Beta-angeles Metoprolol succinate 25 q.day and losartan 25 mg p.o. q.day added. patient tells me that he started these medicines but noticed no difference in his dyspnea on exertion walking room to room. He remained on 6 L nasal cannula 24-7. 08/09/2023: [place] pulmonary rehab note: Total exercise time 40 minutes. 6 L nasal cannula saturations 98%. MTS 1.78. Patient was admitted to [facility] for a GI bleed from a gastric ulcer and [facility]. He was discharged home on 09/30/2024. On 10/01/2024 the patient had a good day and was walking at his baseline room to room with 6 L using walker. On 10/02/2024 the patient developed a cough, no phlegm production initially. No hemoptysis. No worsening in his dyspnea on exertion or shortness of breath. No worsening in his oxygenation. Symptoms persisted on 10/04 he developed dyspnea on exertion and diarrhea his saturations were still in the 90% on 6 L. On 10/05/2024 symptoms continued to worsen and his saturations decreased to 88% on 6 L. he now had increased phlegm production that was described as milky and white. On 10/06/2024 patient presented to the emergency room with a blood pressure of 139/90, heart rate of 82, respirations 35 and saturations on 6 L at 88%. His white blood cell count was 11.0, his creatinine was 1.30 his BNP was 567, his lactic acid with 5.0 his COVID, influenza, RSV RT PCR assay were negative. Patient had an ABG on 5 L nasal cannula with a pH 7.46/33/53 and he was placed on BiPAP rate of 4 pressures 12/6 and 75% FiO2 with a repeat blood gas of 7.39/40/165. Patient was treated with bronchodilators, Solu-Medrol, ceftriaxone, azithromycin, lactated Ringer's, and BiPAP. 10/07/2024: Patient says he feels a little better today cough, his cough is 80% back to his baseline, his rest shortness of breath is normal. He denies fever. He is on 7 L nasal cannula saturations 91%. patient was referred to [facility] to be evaluated by pulmonary hypertension team and he was accepted but waiting for a bed. Later in the day patient was switched to cefepime and Levaquin and patient's MRSA swab was positive and he was started on vancomycin. patient's D-dimer positive at 1.76. CT angiogram of the chest with motion artifact and showed no PE, moderate to severe apical predominant centrilobular emphysema, right lower lobe consolidation with air bronchograms. Compared to CT scan of the chest on 08/18/2024 the right lower lobe infiltrate on 08/18 is now more consolidated. 10/08/2024: Overall the patient tells me he is breathing about the same. When he is sitting he is 80% back to his baseline. When he walks to the chair he still has severe dyspnea on exertion is states that he has 50% back to his baseline. He says his cough is a little bit better. He has no phlegm and no hemoptysis. Patient is currently on 7 L nasal cannula saturations 98%. White blood cell count 9.1, creatinine 0.94, procalcitonin 0.1. DATA: 07/09/2022: cho Summary 1. Complete two-dimensional, color flow and Doppler transthoracic echocardiogram is performed. 2. Left ventricular chamber dimension is normal. 3. Left ventricular systolic function is moderately reduced, estimated at 40-45%. 4. There is mildly increased left ventricular wall thickness. 5. The left ventricular diastolic function is grade I diastolic dysfunction. 6. Right ventricular chamber dimension is severely enlarged. 7. Right ventricular systolic function is reduced. 8. Flattening of the septum in diastole and systole consistent with right ventricular volume and pressure overload. 9. Left atrial chamber dimension is moderately enlarged. 10. Right atrial chamber dimension is severely enlarged. 11. There is moderate tricuspid valve regurgitation. 12. Dilated inferior vena cava with <50% collapse upon inspiration consistent with elevated right atrial pressure, 15 mmHg. 13. Severe pulmonary hypertension with estimated PASP 89mmHg. Right Ventricle Flattening of the septum in diastole and systole consistent with right ventricular volume and pressure overload. Right ventricular chamber dimension is severely enlarged. Right ventricular systolic function is reduced. Left Atria Left atrial chamber dimension is moderately enlarged. Right Atria Right atrial chamber dimension is severely enlarged. Atrial Septum Intact interatrial septum visualized by color flow imaging. 11/04/2020: PFTs This is a pulmonary function test with pre and post-bronchodilator spirometry, plethysmography and diffusing capacity. The test was performed and results interpreted in accordance with the 2019 and 2005 ATS/ERS Task Force guidelines respectively using the Global Lung Function Initiative-2012 reference equations. Patient demonstrated good effort and cooperation. Reproducibility criteria were met. The quality of the pre bronchodilator spirometry maneuver was Grade A and post bronchodilator spirometry maneuver was Grade A. Findings: Spirometry: there is decreased maximal expiratory airflow at all lung volumes wi th concave expiratory flow tracing. The pre bronchodilator FVC is 3.85 L, 87% predicted. The pre bronchodilator FEV1 is 1.81 L, 55% predicted. The FEV1: FVC ratio is 47%. The post bronchodilator FVC is 4.27 L, representing an 11% increase. The post bronchodilator FEV1 is 2.11 L, representing a 16% increase. Plethysmography: The total lung capacity is 6.93 L, 93% predicted. The functional residual capacity is 4.72 L, 118% predicted. The residual volume is 3.08 L, 117% predicted. Diffusing capacity: The absolute diffusion capacity is 8.7, 33% predicted. The diffusing capacity corrected for alveolar volume is 1.60, 43% predicted. Impression: There is a moderately severe obstructive abnormality with significant improvement after inhaling a single dose of albuterol. The lung volumes are normal. The absolute diffusion capacity is severely decreased and remains moderately decreased when corrected for alveolar volume. Review of Systems Constitutional: Constitutional: Reports no additional constitutional complaints Eyes: Eyes: Reports no additional eye complaints ENT: Reports system reviewed and no additional complaints, except as documented Cardiovascular: Cardiovascular: Reports no additional cardiovascular complaints Respiratory: Respiratory: Reports no additional respiratory complaints Gastrointestinal: Gastrointestinal: Reports no additional gastrointestinal complaints Musculoskeletal: Musculoskeletal: Reports no additional musculoskeletal complaints Neurologic: Reports system reviewed and no additional complaints, except as documented Psychiatric: Psychiatric: Reports no additional psychiatric complaints Endocrine: Endocrine: Reports no additional endocrine complaints Hematologic/Lymphatic: Hematologic/Lymphatic: Reports no additional hematologic/lymphatic complaints Allergic/Immunologic: Allergic/Immunologic: Reports no additional allergic/immunologic complaints Exam Const: General: cooperative and in distress; No comfortable Orientation/consciousness: oriented to person, oriented to place and oriented to time Other: Ill-appearing in mild respiratory distress HENMT: Head: normal to inspection Ears: hearing grossly normal bilaterally Eyes: General: appearance normal, both eyes and all related structures Neck: Neck: normal visual inspection Chest: Chest palpation & inspection: normal inspection of the chest Resp: Effort & Inspection: normal respiratory effort and able to speak in complete sentences Auscultation: crackles, no rales, no rhonchi, wheezes and diminished lung sounds Cardio: Jugular venous distension: no JVD GI: Inspection: normal to inspection Skin: General skin exam: normal color Neuro: General: oriented to person, oriented to place and oriented to time Extrem: General: normal to inspection and no edema Psych: Appearance: grossly normal Objective Data Vital Signs Vital Signs: Vital Signs - 24 hr 10/07/24 12:00 10/07/24 12:00 10/07/24 14:00 Temperature Pulse Rate 79 76 Respiratory Rate Blood Pressure Pulse Oximetry 92 Oxygen Delivery Nasal Cannula Oxygen Flow Rate 8 Fraction of Inspired Oxygen 10/07/24 14:05 10/07/24 16:23 10/07/24 16:24 Temperature 36.9 C Pulse Rate 74 82 Respiratory Rate 18 22 H Blood Pressure 84/48 L 96/44 L Pulse Oximetry 88 L Oxygen Delivery Oxygen Flow Rate Fraction of Inspired Oxygen 10/07/24 16:41 10/07/24 16:45 10/07/24 16:45 Temperature Pulse Rate 78 86 Respiratory Rate 18 Blood Pressure Pulse Oximetry 92 Oxygen Delivery Nasal Cannula Oxygen Flow Rate 8 Fraction of Inspired Oxygen 10/07/24 18:00 10/07/24 19:58 10/07/24 20:00 Temperature 36.4 C L Pulse Rate 84 76 90 Respiratory Rate 18 18 Blood Pressure 109/52 L Pulse Oximetry 93 Oxygen Delivery Oxygen Flow Rate Fraction of Inspired Oxygen 10/07/24 20:00 10/07/24 20:00 10/07/24 20:08 Temperature Pulse Rate 84 76 Respiratory Rate 18 Blood Pressure Pulse Oximetry 92 Oxygen Delivery High Flow Nasal Cannula Oxygen Flow Rate 8 Fraction of Inspired Oxygen 10/07/24 20:44 10/07/24 22:00 10/07/24 23:54 Temperature Pulse Rate 76 78 76 Respiratory Rate 18 18 Blood Pressure Pulse Oximetry 95 Oxygen Delivery High Flow Therapy with Na Oxygen Flow Rate 8 Fraction of Inspired Oxygen 10/08/24 00:00 10/08/24 00:00 10/08/24 00:00 Temperature 36.4 C L Pulse Rate 81 85 Respiratory Rate 20 Blood Pressure 93/48 L Pulse Oximetry 93 94 Oxygen Delivery High Flow Nasal Cannula Oxygen Flow Rate 8 Fraction of Inspired Oxygen 10/08/24 00:04 10/08/24 02:00 10/08/24 04:00 Temperature Pulse Rate 76 76 Respiratory Rate 18 Blood Pressure Pulse Oximetry 100 Oxygen Delivery High Flow Nasal Cannula Oxygen Flow Rate 8 Fraction of Inspired Oxygen 10/08/24 04:00 10/08/24 04:00 10/08/24 04:18 Temperature 36.3 C L Pulse Rate 72 74 76 Respiratory Rate 20 18 Blood Pressure 101/38 L Pulse Oximetry 95 Oxygen Delivery Oxygen Flow Rate Fraction of Inspired Oxygen 10/08/24 04:31 10/08/24 04:45 10/08/24 04:54 Temperature Pulse Rate 76 78 Respiratory Rate 18 18 Blood Pressure Pulse Oximetry 95 98 Oxygen Delivery High Flow Therapy with Na High Flow Nasal Cannula Oxygen Flow Rate 7 7 Fraction of Inspired Oxygen 10/08/24 06:00 10/08/24 07:46 10/08/24 07:46 Temperature Pulse Rate 83 78 Respiratory Rate 24 H Blood Pressure Pulse Oximetry 94 Oxygen Delivery High Flow Therapy with Na Oxygen Flow Rate 7 Fraction of Inspired Oxygen 10/08/24 07:56 10/08/24 08:00 10/08/24 08:00 Temperature Pulse Rate 77 85 Respiratory Rate 24 H Blood Pressure Pulse Oximetry 93 Oxygen Delivery High Flow Nasal Cannula Oxygen Flow Rate 6 Fraction of Inspired Oxygen 10/08/24 08:25 10/08/24 08:51 10/08/24 09:19 Temperature 36.3 C L Pulse Rate 102 H 86 Respiratory Rate 22 H Blood Pressure 112/64 Pulse Oximetry 98 Oxygen Delivery High Flow Therapy with Na Oxygen Flow Rate 6 Fraction of Inspired Oxygen 10/08/24 10:00 10/08/24 11:26 10/08/24 11:26 Temperature Pulse Rate 68 97 Respiratory Rate 28 H Blood Pressure Pulse Oximetry 89 L Oxygen Delivery High Flow Nasal Cannula Oxygen Flow Rate 6 Fraction of Inspired Oxygen 44 10/08/24 11:33 Temperature Pulse Rate 95 Respiratory Rate 24 H Blood Pressure Pulse Oximetry Oxygen Delivery Oxygen Flow Rate Fraction of Inspired Oxygen Intake/Output Intake/Output: Intake & Output 10/05/24 10/06/24 10/07/24 10/08/24 23:59 23:59 23:59 23:59 Intake Total 2540 4140 740 Output Total 25 1000 400 Balance 2515 3140 340 Meds/Results Medications: Active Medications Generic Name Dose Route Start Last Admin Trade Name Freq PRN Reason Stop Dose Admin Acetaminophen 650 mg 10/06/24 21:56 Acetaminophen 325 Mg Tablet PO Q4H PRN Mild Pain (1-3) or Fever Hydrocodone Bitart/Acetaminophen 1 tab 10/06/24 21:59 Hydrocodone/Acetaminophen (*Crx) 10-325 Mg Tablet PO BID PRN pain 4-10 Albuterol 2.5 mg 10/07/24 14:43 Albuterol Sulfate Neb 2.5 Mg/3 Ml Inh INHALATION Q4HR PRN Wheezing Albuterol/Ipratropium 3 ml 10/07/24 16:00 10/08/24 11:26 Ipratropium 0.5 Mg/Albuterol Sulfate 2.5 Mg Ampul.Neb 3 Ml INHALATION 3 ml Q4HRT SALAZAR Administration Atorvastatin Calcium 80 mg 10/07/24 09:00 10/08/24 08:23 Atorvastatin 40 Mg Tablet PO 80 mg DAILY SALAZAR Administration Furosemide 40 mg 10/08/24 09:00 10/08/24 08:24 Furosemide Inj 40 Mg/4 Ml Vial IV PUSH 40 mg DAILY SALAZAR Administration Guaifenesin 1,200 mg 10/08/24 09:00 10/08/24 08:25 Guaifenesin 12 Hr 600 Mg Tabcr PO 1,200 mg Q12HR SALAZAR Administration Heparin Sodium (Porcine) 5,000 units 10/07/24 09:00 10/08/24 08:25 Heparin Sodium 5,000 Units/Ml Vial SUB-Q 5,000 units Q12HR SALAZAR Administration Sodium Chloride 1,000 mls @ 125 mls/hr 10/06/24 17:55 10/07/24 15:00 Normal Saline Iv IV CONT Infused .Q8H SALAZAR Infusion Cefepime HCl 2 gm in 50 mls @ 100 mls/hr 10/07/24 14:00 10/08/24 05:55 Maxipime 2 Gm/Ns 50 Ml IVPB Infused Q8H SALAZAR Infusion Levofloxacin/Dextrose 750 mg in 150 mls @ 100 mls/hr 10/07/24 15:00 10/07/24 16:08 Levaquin 750 Mg/D5w 150 Ml IVPB Infused Q24H SALAZAR Infusion Vancomycin HCl 1,000 mg in 250 mls @ 250 mls/hr 10/08/24 19:00 Vancomycin 1,000 Mg/Ns 250 Ml IVPB Q24H SALAZAR Losartan Potassium 25 mg 10/07/24 09:00 10/08/24 11:09 Losartan Potassium 25 Mg Tablet PO Not Given DAILY SALAZAR Methylprednisolone Sodium Succinate 20 mg 10/07/24 18:00 10/08/24 05:25 Methylprednisolone Sod Succ 40 Mg Vial IV PUSH 20 mg Q6HR SALAZAR Administration Metoprolol Succinate 25 mg 10/07/24 09:00 10/08/24 08:25 Metoprolol Succinate Ext Rel 25 Mg Tabcr PO 25 mg DAILY SALAZAR Administration Mirtazapine 15 mg 10/07/24 21:00 10/07/24 20:09 Mirtazapine 15 Mg Tablet BY MOUTH 15 mg HS SALAZAR Administration Non-Formulary ( 1 each 10/08/24 09:00 10/08/24 08:40 Macitentan 10 Mg PO 11/07/24 08:59 1 each Oral Tablet) DAILY SALAZAR Administration Pantoprazole Sodium 40 mg 10/07/24 21:00 10/08/24 08:26 Pantoprazole 40 Mg Tablet PO 40 mg Q12HR SALAZAR Administration Polyethylene Glycol 17 gm 10/07/24 09:00 10/07/24 09:14 Polyethylene Glycol 3350 17 Gm Powd.Pack PO 17 gm QAM PRN Administration constipation Sildenafil Citrate 60 mg 10/06/24 22:20 10/08/24 08:24 Sildenafil Citrate 20 Mg Tablet PO 60 mg Q12HR SALAZAR Administration Spironolactone 25 mg 10/08/24 09:00 10/08/24 08:30 Spironolactone 25 Mg Tablet PO 25 mg DAILY SALAZAR Administration Radiology Results: ITS Impressions Chest X-Ray 10/06/24 14:37 IMPRESSION: No new acute cardiopulmonary process. Improving right medial basilar airspace disease and trace right effusion. Chest CTA 10/07/24 17:42 IMPRESSION: Severely limited evaluation of the segmental and more distal pulmonary arteries. No central acute pulmonary embolus acute. Segmental right medial basilar and subsegmental lingular consolidation. Moderate compression deformity at T7, presumably chronic unless accompanied by acute pain/tenderness. Labs Labs: Laboratory Results - last 24 hr 10/07/24 10/07/24 10/08/24 14:30 15:30 04:08 WBC 9.0 RBC 2.96 L Hgb 8.5 L Hct 28.4 L MCV 95.9 MCH 28.7 MCHC 29.9 L RDW 17.2 H Plt Count 128 L MPV 10.1 Immature Gran % (Auto) 1.0 H Neut % (Auto) 93.3 H Lymph % (Auto) 2.8 L [place] % (Auto) 2.8 Eos % (Auto) 0.0 Baso % (Auto) 0.1 L Lymph # (Auto) 0.25 L [place] # (Auto) 0.3 Eos # (Auto) 0.0 Baso # (Auto) 0.0 Abs Immat Gran (auto) 0.09 H Absolute Neuts (auto) 8.4 H Absolute Nucleated RBC 0.000 Nucleated RBC % 0.0 D-Dimer 1.76 H Sodium 135 L Potassium 3.9 Chloride 106 Carbon Dioxide 25 Anion Gap 4 BUN 26 H Creatinine 0.94 Estim Creat Clear Calc 56 Estimated GFR > 60 Glucose 168 H Calcium 8.7 Magnesium 2.1 Total Bilirubin 0.3 AST 54 ALT 89 H Alkaline Phosphatase 171 H NT-Pro-B Natriuret Pep 1260 H Total Protein 4.9 L Albumin 2.5 L Procalcitonin 0.1 Nasal MRSA (PCR) Detected A*
--- NOTE | 2024-10-08 12:01 | ECHO_ITS ---
Patient Info Name: Constantine Ko Age: 79 years : 1945 Gender: Male Ht: 71 in Wt: 152 lbs BSA: 1.85 m2 HR: 95 bpm BP: 112 / 64 mmHg Heart Rhythm: Sinus Rhythm Technical Quality: Fair Exam Date: 10/08/2024 4:14 PM Patient Status: I Admit Date: 10/07/2024 Exam Type: CA echo dop bubble study w con Complete two-dimentional, color flow and Doppler transthoracic echocardiogram is performed with agitated saline and with contrast to opacify the left ventricle and to improve the delineation of the left ventricle endocardial borders. Staff Referring Physician: Taras Oropeza Compliance Project Manager: Ragini Lewis Attending Provider: Pelon Moura MD Contrast/Agitated Saline Contrast/Ag. Saline: Agitated Saline Amount: 20.00 ml Existing IV Access: Yes IV Access Condition: patent with no signs of infiltration Contrast/Ag. Saline: Definity Amount: 2.00 ml Administered By: Ragini Lewis Existing IV Access: Yes IV Access Condition: patent with no signs of infiltration Summary 1. Very technically difficult study with limited views. 2. Left ventricular chamber dimension is normal. 3. Left ventricular systolic function is mildly reduced, estimated at 45-50. 4. There is moderately increased left ventricular wall thickness. 5. The left ventricular diastolic function is grade I diastolic dysfunction. 6. Bubble study poor quality. Bubble study is inconclusive. 7. No significant valvular disease appreciated on this study, however limited views due to technically difficult study. Left Ventricle Left ventricular chamber dimension is normal. Left ventricular systolic function is mildly reduced, estimated at 45-50. There is moderately increased left ventricular wall thickness. The left ventricular diastolic function is grade I diastolic dysfunction. Right Ventricle Right ventricular chamber dimension is not well visualized. Left Atria Left atrial chamber dimension is not well visualized. Right Atria Right atrial chamber dimension is not well visualized. Atrial Septum Bubble study poor quality. Bubble study is inconclusive. Intact interatrial septum visualized by color flow imaging. Aortic Valve The aortic valve is not well visualized. There is no aortic valve regurgitation. Pulmonic Valve The pulmonic valve is not well visualized. Mitral Valve There is trace mitral valve regurgitation. Tricuspid Valve There is trace tricuspid valve regurgitation. Pericardium/Pleural There is no pericardial effusion. Inferior Vena Cava Dilated inferior vena cava with <50% collapse upon inspiration consistent with elevated right atrial pressure, 15 mmHg. Aorta The aortic root size at the sinus of Valsalva is normal. Left Ventricular Outflow Tract Name Value Normal LVOT 2D LVOT Diameter 2.1 cm LVOT Doppler LVOT Peak Velocity 95 cm/s LVOT Peak Gradient 4 mmHg LVOT Mean Gradient 1 mmHg LVOT VTI 16 cm LVOT VTI/AV VTI Ratio 0.8 LVOT Stroke Volume 55 ml LVOT CO 4.2 l/min LVOT CI 2.2 l/min/m2 Pulmonic Valve Name Value Normal RVOT Doppler RVOT Peak Velocity 88 cm/s RVOT Peak Gradient 3 mmHg PV Doppler PV Peak Velocity 119 cm/s PV Peak Gradient 6 mmHg Mitral Valve Name Value Normal MV Diastolic Function MV E Peak Velocity 63 cm/s MV A Peak Velocity 103 cm/s MV E/A 0.6 MV Decel Time (PW) 103 ms MV Annular TDI MV E/e' (Septal) 10.8 MV E/e' (Lateral) 12.0 MV E/e' (Average) 11.4 Tricuspid Valve Name Value Normal Estimated PAP/RSVP RA Pressure 15 mmHg <=5 TV Annular TDI TV Lateral Mary s' Velocity 9.6 cm/s >=9.5 Aortic Valve Name Value Normal AV Doppler AV Peak Velocity 138 cm/s AV Peak Gradient 8 mmHg AV Mean Gradient 3 mmHg AV VTI 20 cm AV Area (Cont Eq VTI) 2.7 cm2 >=3.0 AV Area (Cont Eq Jeovany) 2.4 cm2 AV DI (Jeovany) 0.69 AV Regurgitation 2D LVOT Area 3.5 cm2 Ventricles Name Value Normal LV Dimensions 2D/MM IVS Diastolic Thickness (2D) 1.2 cm 0.6-1.0 LVID Diastole (2D) 4.2 cm 4.2-5.8 LVIW Diastolic Thickness (2D) 1.2 cm 0.6-1.0 LVID Systole (2D) 3.4 cm 2.5-4.0 LVOT Diameter 2.1 cm LV Mass (2D Cubed) 168.62 g 88.00-224.00 LV Mass Index (2D Cubed) 91 g/m2 49-115 Relative Wall Thickness (2D) 0.55 <=0.42 LV Fractional Shortening/Ejection Fraction 2D/MM LV Fractional Shortening (2D) 20 % 25-43 LV EF (2D Teichholz) 41 % LV Diastolic Volume (4C MOD) 54 ml LV EF (4C MOD) 33 % LV Diastolic Volume (2C MOD) 49 ml LV EF (2C MOD) 38 % LV Diastolic Volume (BP MOD) 55 ml 62-150 LV Diastolic Volume Index (BP MOD) 30 ml/m2 34-74 LV Systolic Volume (BP MOD) 35 ml 21-61 LV Systolic Volume Index (BP MOD) 19 ml/m2 11-31 LV EF (BP MOD) 36 % 52-72 LV Diastolic Length (4C) 7.7 cm LV Systolic Length (4C) 7.2 cm LV Stroke Volume (4C MOD) 18 ml Atria Name Value Normal LA Dimensions LA Volume (4C A-L) 65 ml LA Volume (BP A-L) 55 ml RA Dimensions RA Area (4C) 15.8 cm2 <=18.0 Report Signatures
--- NOTE | 2024-10-08 12:37 | PCOTNOTE ---
The patient treatment was not able to be completed. Not appropriate at this time. RN stated he just moved back to bed HR was elevated and he was short of breath. Will plan to continue treatment per plan of care.
[2024-10-08] MEDS: levoFLOXacin 750 MG/D5W 150 ML 750 MG/150 ML BAG 100 MG IVPB (14:21)
[2024-10-08] MEDS: PERFLUTREN LIPID MICROSPHERES 1.5 ML VIAL DILUTED TO 10 ML TOTAL VOLUME IV PUSH (16:45)
--- NOTE | 2024-10-08 17:08 | IVDEFINITY ---
Prior to administration of IV Definity the patient was educated on the risks and benefits of the imaging enhancing agent including potential adverse side effects. The patient verbalized understanding. Allergies were verified. No exclusion criteria were identified and at least one of the following inclusion criteria were met: 1) physician request, 2) patient technically difficult to image (per the [place] [employer] guidelines of two or more segments not discernable within the apical view), or 3) questionable left ventricular function. ?
[2024-10-08] MEDS: VANCOMYCIN 1,000 MG/NS 250 ML 1,000 MG/250 ML BAG 250 MG IVPB (18:20)
[2024-10-08] MEDS: ALBUTEROL SULFATE NEB 2.5 MG/3 ML INH INHALATION (18:26)
[2024-10-08] MEDS: MIRTAZAPINE 15 MG TABLET BY MOUTH (20:12)
--- NOTE | 2024-10-09 06:54 | P.TS_ITS ---
Transfer Discharge Sum: Prov Provider Date of admission: 10/07/24 15:51 Primary care physician: Yusuf Quintanilla MD Admitting clinician: Pelon Moura MD Consults: 10/07/24 09:57 Consult to Physician Routine Comment: Consulting Provider: Taras Oropeza call or contact centre team leader/MD group to consult: Pulmonology Reason for consultation: COPD Exacerbation Has provider been notified: Yes Receiving physician/facility: [facility] DS: Admitting Diagnosis Discharge Date 10/08/24 Admitting Diagnosis Acute Respiratory Failure w/ hypoxia, COPD exacerbation DS: Discharge Diagnosis Discharge Diagnosis (1) Acute and chronic respiratory failure with hypoxia: Code(s): J96.21 - Acute and chronic respiratory failure with hypoxia Status: Acute Assessment and Plan: * Symptoms: SOB, congestion, cough * SpO2: 92% * Oxygen supplementation: 8L (baseline) * Suspected cause: COPD exacerbation, infection? * ABG: pH 7.389, pCO2 39.8, PO2 165.4, HC03 23.5, O2 saturation in mid 0.1%, O2 content 18.3%, oxyhemoglobin 98.5 % * EKG: NSR, LAD, LBBB * Chest XR: No acute cardiopulmonary findings * Pulmonology consulted * Dimer elevated * Goal O2% -> 90-94% * Currently on 6L NC, can adjust up to 15L if needed * Airvo or Vapotherm if needed if still SOB * CTA * Severely limited evaluation of the segmental and more distal pulmonary arteries. No central acute pulmonary embolus acute. * Segmental right medial basilar and subsegmental lingular consolidation. ( Seen on previous imaging in 07/2024, but now larger) * Treat empirically for pneumonia (2) COPD exacerbation: Code(s): J44.1 - Chronic obstructive pulmonary disease with (acute) exacerbation Status: Acute Assessment and Plan: * Monitor vital signs, I&Os, neuro status and patient is a fall risk * Monitor serum electrolytes, cultures and CBC * Monitor Oxygen saturation, Oxygen via NC; keep SpO2 greater than 88% * Initially placed on Azithromycin 500mg & Rocephin -> Switching to Cefepime and Levaquin on 10/07 * Duonebz q6H * BIPAP held due to comfort * Per Pulm recommendations * Decrease Solumedrol to 20mg IV Q6hr * Add ipratropium nebulizers * Urine for Legionella, Pneumococcal, mycoplamsa IGM * Respiratory panel (3) Pneumonia: Code(s): J18.9 - Pneumonia, unspecified organism Status: Acute Assessment and Plan: * CTA * Severely limited evaluation of the segmental and more distal pulmonary arteries. No central acute pulmonary embolus acute. * Segmental right medial basilar and subsegmental lingular consolidation. ( Seen on previous imaging in 07/2024, but now larger) * Pulm already follow, appreciate further recs * Already placed on Levaquin, Cefepime and Vanc (for MRSA) - continue * Respiratory pathogen panel, urine Legionella, urine pneumococcal and serum mycoplasma IgM pending * Guaifenesin and Cornet flutter valve to help with expectoration (4) MRSA nasal colonization: Code(s): Z22.322 - Carrier or suspected carrier of Methicillin resistant Staphylococcus aureus Status: Acute Assessment and Plan: * On 10/07, MRSA nasal swab was (+) * Started on IV Vanc * Isolation precautions (5) Severe pulmonary hypertension: Code(s): I27.20 - Pulmonary hypertension, unspecified Status: Chronic Assessment and Plan: * See problems above * Follows with [facility] * Takes Macitentan 10mg daily, Sildenafil 40mg TID, Lasix 20mg daily, prednison 10mg daily * Transfer to [facility] - Accepted - Pending Bed (6) Lactic acidosis: Code(s): E87.20 - Acidosis, unspecified Status: Acute Assessment and Plan: * In ED: 5.0 * Minimal improvement lactic acid after 1 L fluid bolus, gave 2 L fluid bolus with IVF * Repeat lactic acid in a.m. * 10/07: 1.7 * Resolved (7) WARD (acute kidney injury): Code(s): N17.9 - Acute kidney failure, unspecified Status: Acute Assessment and Plan: * In ED: Cr 1.3, BUN 48 * IV hydration * Avoid nephrotoxic medications as able * Monitor daily labs * 10/08: Cr 0.94, BUN 26 (8) Combined systolic and diastolic cardiac dysfunction: Code(s): I51.89 - Other ill-defined heart diseases Status: Acute Assessment and Plan: * Monitor for fluid overload as patient received 2 L of IV fluid per sepsis protocol in WARD * Currently holding home diuretics re-evaluate in the morning * Repeat Echo on 10/08/2024 - pending at this time * Changed PO lasix to IV 40mg (9) Coronary artery disease: Qualifiers: Associated angina: without angina Coronary Disease-Associated Artery/Lesion type: [place] artery [place] vs. transplanted heart: [place] heart Qualified Code(s): I25.10 - Atherosclerotic heart disease of [place] coronary artery without angina pectoris Code(s): I25.10 - Atherosclerotic heart disease of [place] coronary artery without angina pectoris Status: Chronic Assessment and Plan: * Continue metoprolol, losartan, and statin (10) Hypertension: Qualifiers: Hypertension type: primary hypertension Qualified Code(s): I10 - Essential (primary) hypertension Code(s): I10 - Essential (primary) hypertension Status: Chronic Assessment and Plan: * Continue pulmonary hypertension medications * Stable Transfer Discharge Sum: Med Medications Active and Home Medications: Home Medications nebulizers #1 ea 07/08/22 [Rx Confirmed 10/06/24] ipratropium 0.5 mg-albuterol 3 mg (2.5 mg base)/3 mL nebulization soln 3 ml inhalation QID PRN shortness of breath #180 mL 07/13/22 [Rx Confirmed 10/06/24] macitentan 10 mg tablet (Opsumit) 10 mg PO DAILY 01/14/23 [History Confirmed 10/06/24] albuterol sulfate 90 mcg/actuation aerosol inhaler 1 inh inhalation QID PRN shortness of breath or wheezing #8.5 grams 05/30/23 [Rx Confirmed 10/06/24] furosemide 40 mg tablet 40 mg PO DAILY #90 tabs 12/19/23 [Rx Confirmed 10/06/24] azithromycin 500 mg tablet 500 mg PO .three times per week 90 days #36 tabs 04/23/24 [Rx Confirmed 10/06/24] methocarbamol 750 mg tablet 750 mg PO TID PRN muscle spasm #30 tabs 05/25/24 [Rx Confirmed 10/06/24] prednisone 20 mg tablet See Rx Instructions .Route .COMPLEX #30 tabs 07/05/24 [Rx Confirmed 10/06/24] spironolactone 25 mg tablet 25 mg PO DAILY #90 tabs 07/05/24 [Rx Confirmed 10/06/24] atorvastatin 80 mg tablet 80 mg PO DAILY #90 tabs 08/06/24 [Rx Confirmed 10/06/24] mirtazapine 15 mg tablet See Rx Instructions .Route .COMPLEX #90 tabs 08/06/24 [Rx Confirmed 10/06/24] hydrocodone 10 mg-acetaminophen 325 mg tablet 1 tablet PO BID PRN pain 08/19/24 [History Confirmed 10/06/24] losartan 25 mg tablet 25 mg PO DAILY 08/19/24 [History Confirmed 10/06/24] metoprolol succinate 25 mg tablet,extended release 24 hr 25 mg PO DAILY 08/19/24 [History Confirmed 10/06/24] potassium chloride 20 mEq tablet,extended release (K-Tab) 20 meq PO DAILY 08/19 [History Confirmed 10/06/24] sildenafil (pulm.hypertension) 20 mg tablet 60 mg PO Q12H 08/19/24 [History Confirmed 10/06/24] hydrocodone 10 mg-acetaminophen 325 mg tablet 1 tablet PO BID PRN pain #6 tabs 08/28/24 [Rx Confirmed 10/06/24] pantoprazole 40 mg tablet,delayed release 40 mg PO Q12HR #28 tabs 08/28/24 [Rx Confirmed 10/06/24] budesonide 160 mcg-glycopyr 9 mcg-formot 4.8 mcg/actuation HFA inhaler (Breztri Aerosphere) 2 inh inhalation .am 10/06/24 [History Confirmed 10/06/24] citalopram 20 mg tablet 20 mg PO DAILY 10/06/24 [History Confirmed 10/06/24] polyethylene glycol 3350 17 gram oral powder packet (Miralax) 17 g PO QAM PRN constipation 10/06/24 [History Confirmed 10/06/24] Transfer Discharge Sum: Hosp Hospital Course Hospital course: Constantine Ko is a 79 year old male with past medical history of COPD, anemia, systolic and diastolic CHF hypertension, and hypothyroidism presents the hospital with shortness of breath. Patient states that few days ago he noticed that he started to have a cough and felt congestion. He stated to his that he thought he was having pneumonia. Over the next couple days patient became very short of breath and presented to the hospital for increased work of breathing. Patient denies nausea or vomiting. In the ED patient has leukocytosis 11.0, hemoglobin of 13.1 with baseline being around 9, sodium of 135, BUN of 48, lactic of 5.0 with repeat being 4.1 after 1 L fluid bolus. Creatinine 1.3 with baseline being around 0.7 proBNP being 567, UA negative for infection, influenza A/B, RSV, COVID negative. Chest x-ray showing trace right pleural effusion. Pulmonology consult for acute and chronic respiratory failure with hypoxia and, recommended D-dimer and subsequent CT Angio of the chest if positive, as well as transfer to [facility] given underlying comorbidities and previous care at their pulmonary hypertension Center. On 10/08 the patient was switched to cefepime and Levaquin, patient was also found to be MRSA positive said he was subsequently started on vancomycin. Echocardiogram was which showed mildly reduced L the s ystolic function EF of 45-50%, G1DD, moderately increased left ventricular wall thickness. D-dimer was found to be positive at 1.76 although previous reading was 1.77 so baseline may be elevated, however CT scan was tenuous which showed motion artifact but no pulmonary embolism, and moderate to severe apical predominant centrilobular emphysema, right lower lobe consolidation with air bronchograms. Agree with Pulmonary in comparatively this CT scan now shows more consolidation in the right lower lobe. Patient remains on vancomycin cefepime and Levaquin for also suspected pneumonia, along with acute on chronic respiratory failure with hypoxia. Respiratory pathogen panel, urine Legionella and urine pneumococcal test also ordered to Pulmonary. Given extensive history with [facility]'s pulmonary hypertension clinic, Dr. Oropeza of pulmonology recommended transfer to [facility] for continued care. [facility] transfer line was contacted and patient was subsequently accepted and a bed was obtained on 10/08 and the patient was subsequently transferred to [facility] for acute on chronic respiratory failure hypoxia, pneumonia and MRSA. Time Spent with Patient Time attestation: Total time spent providing and/or coordinating transfer services: 35 Exam Narrative: General: Ill appearing, appears stated age. HEENT: normocephalic, atraumatic. Mucous membranes moist. EOMI, PERRLA, bilateral sclera anicteric, no conjunctival injection. Neck supple without JVD, lymphadenopathy, or bruit. Respiratory: No crackles, rales, rhonchi, wheezing or diminished lung sounds. Mild congestion. Cardiovascular: Regular rate and rhythm, normal S1-S2 upon ascultation. No murmurs, rubs, or clicks. PMI is nondisplaced, capillary refill less than 3 second. Abdomen: Soft, round, no pulsatile masses, nondistended and nontender. No rebound, no guarding. No CVA tenderness, no hepatosplenomegaly. Bowel sounds present to all four quadrants. No high pitch or tinkling sounds, resonant to percussion. Extremities: No cyanosis, clubbing, or edema present. Pulses are palpable 2/2. Active ROM to all four extremities. Neuro: Alert and orientated x 4. PERRLA. Cranial nerves 2-12 intact without focal deficit. Skin: Warm, dry, and intact, without rash, erythema, or lesion. Psych: pleasant, cooperative, normal speech, normal affect, no hallucinations, no dysarthia BiPAP high-flow DS: Data Data Completed and Pending Labs on day of discharge: Preliminary micro results at discharge 10/06/24 13:37 Blood Culture - Preliminary Blood 10/06/24 14:00 Blood Culture - Preliminary Blood
--- NOTE | 2024-10-09 07:11 | P.CDI_ITS ---
CDI Query Clarification Request Please specify acuity of heart failure if known. * Acute * Chronic * Acute on Chronic * Unknown The medical chart reflects the followin-year-old male with history of COPD, CHF on 6 L of oxygen at all time present to the emergency department for evaluation for worsening shortness of breath. Patient states he was just admitted to [facility] for a GI bleed and was at [facility] for rehab up until Tuesday. Patient was discharged to his home on Tuesday and states he has had worsening shortness of breath since then. Patient present to the emergency department today and respiratory distress. Patient is normally on 6 L and was tripod breathing when he arrived to the administrative assistant front desk. Patient denies any associated chest pain. (8) Combined systolic and diastolic cardiac dysfunction: Code(s): I51.89 - Other ill-defined heart diseases Status: Acute Assessment and Plan: * Monitor for fluid overload as patient received 2 L of IV fluid per sepsis protocol in WARD * Currently holding home diuretics re-evaluate in the morning * Repeat Echo on 10/08/2024 - pending at this time * Changed PO lasix to IV 40mg <Sade Cruz RN - Last Filed: 10/09/24 07:13> Clarified Diagnosis Clarified Diagnosis: Acute on chronic HF <Khanh Long PA-C - Last Filed: 10/09/24 08:07>
[2024-10-10 18:23] LABS: Mycoplasma IgM Antibody Titer 94 U/mL
[2024-10-11 16:34] LABS: Pneumococcal Antigen Urine NOT DETECTED
[2024-10-11 17:38] LABS: Legionella pneumophila Ag Ur NOT DETECTED
[2024-10-11 19:03] LABS: Adenovirus DNA Not Detected (Not Detected); Chlamydophila pneumoniae Not Detected (Not Detected); Coronavirus 229E Not Detected (Not Detected); Coronavirus HKU1 Not Detected (Not Detected); Coronavirus NL63 Not Detected (Not Detected); Coronavirus OC43 Not Detected (Not Detected); Human Metapneumovirus Not Detected (Not Detected); Human Parainfluenza Virus 1 Not Detected (Not Detected); Human Parainfluenza Virus 2 Not Detected (Not Detected); Human Parainfluenza Virus 3 Detected (Not Detected); Human Parainfluenza Virus 4 Not Detected (Not Detected); Human RSV B Not Detected (Not Detected); Influenza A Not Detected (Not Detected); Influenza B Not Detected (Not Detected); Mycoplasma pneumoniae Not Detected (Not Detected); Rhinovirus/Enterovirus Not Detected (Not Detected)
== END 2024-10-08 23:34 | disposition short-term general hospital (02) | DRG 189 ==
LOC: ANHED 15:23 → ANHIMU 16:16
PROVIDERS: Internal Medicine Pulmonary Disease; Nurse Practitioner; Nurse Practitioner Gerontology; Admitting Provider Family Medicine; Emergency Provider Emergency Medicine; PCP Family Medicine; Visit Provider Physician Assistant
DX: J96.21 Acute and chronic respiratory failure with hypoxia (principal); I50.43 Acute on chronic combined systolic (congestive) and diastolic (congestive) heart failure; J18.9 Pneumonia, unspecified organism; J44.1 Chronic obstructive pulmonary disease with (acute) exacerbation; J44.0 Chronic obstructive pulmonary disease with (acute) lower respiratory infection; E87.21 Acute metabolic acidosis; N17.9 Acute kidney failure, unspecified; B97.89 Other viral agents as the cause of diseases classified elsewhere; I27.20 Pulmonary hypertension, unspecified; I11.0 Hypertensive heart disease with heart failure; I25.10 Atherosclerotic heart disease of native coronary artery without angina pectoris; M48.062 Spinal stenosis, lumbar region with neurogenic claudication; G47.33 Obstructive sleep apnea (adult) (pediatric); F41.1 Generalized anxiety disorder; E78.5 Hyperlipidemia, unspecified; E03.9 Hypothyroidism, unspecified; Z22.322 Carrier or suspected carrier of Methicillin resistant Staphylococcus aureus; Z99.81 Dependence on supplemental oxygen; Z95.1 Presence of aortocoronary bypass graft; Z87.891 Personal history of nicotine dependence
CPT/HCPCS: 36415; 36600; 71045; 71275; 80048; 80053; 81001; 82375; 82805; 83050; 83605; 83735; 83880; 84145; 85018; 85025; 85380; 85610; 85730; 86738; 87040; 87449; 87633; 87637; 87641; 87899; 93005; 94002; 94640; 94667; 96361; 96365; 96367; 96372; 96375; 96376; 97110; 97162; 97165; 97530; 99285; A9270; C8929; G0378; J0456; J0692; J0696; J1644; J1938; J1956; J2919; J3370; J7030; J7120; Q9957; Q9967